=== PATIENT | male | born 1960 | race African-American/Black ===

== ENCOUNTER 2020-12-06 08:14 | Outpatient (REF) | payer OTHER, SELFPAY ==
--- NOTE | ~2020-12-06 | XR_ITS ---
EXAMINATION: XR WRIST, LEFT CLINICAL INFORMATION: Left wrist pain COMPARISON: None TECHNIQUE: PA, lateral, and oblique views of the left wrist. FINDINGS: There is soft tissue swelling seen about the dorsum of the wrist. There is severe degenerative joint disease seen involving the first carpometacarpal joint with loss of joint space and prominent spurring. No acute fracture is appreciated. XR/XR wrist LT min 3V IMPRESSION: Severe degenerative joint disease involving the first carpal metacarpal joint.
== END 2020-12-06 08:15 | disposition home or self-care (01) ==
LOC: HO.HOSX 08:14
PROVIDERS: Visit Provider Orthopaedic Surgery
DX: M67.432 Ganglion, left wrist (principal); M25.631 Stiffness of right wrist, not elsewhere classified; M25.632 Stiffness of left wrist, not elsewhere classified
CPT/HCPCS: 20612; 73110; 99202

== ENCOUNTER → 2021-03-06 09:05 | Outpatient (BNVA) | payer OTHER, SELFPAY | PROVIDERS: Visit Provider Orthopaedic Surgery | DX: M67.439 Ganglion, unspecified wrist (principal); M25.631 Stiffness of right wrist, not elsewhere classified; M25.632 Stiffness of left wrist, not elsewhere classified | CPT/HCPCS: 99212 ==

== ENCOUNTER 2021-03-22 08:06 | Day surgery (SDC) | payer OTHER, SELFPAY ==
[2021-03-16 12:10] VITALS: BMI 28.6
--- NOTE | 2021-03-21 10:11 | HO.ANESPROP2 ---
Documented by User: Tari Bhandari NP 03/21/21 10:11 HPI - Anesthesia Eval Consult details Narrative: 60yo M for Left Excision of Dorsal Wrist Ganglion PMFSH Active Problems Active Problems: All Active Problems (Updated 12/06/20 @ 09:38 by Janell Davis MD) Wrist joint stiffness, bilateral (Acute) Dorsal wrist ganglion (Acute) Past Medical History Medical History High blood pressure High cholesterol Surgical History Surgical History (Updated 03/22/21 @ 08:15 by Dolores Mcmullen RN) History of carpal tunnel release Hx of hand surgery Social History Social History Patient Tobacco Use Status: Never used Tobacco Use of substances other than those prescribed or required for medical reasons: No Are you DNR?: No Advance Directives: No Advance Directives Information Provided: Yes Current occupational status: unemployed 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 Allergies Allergy/AdvReac Type Severity Reaction Status Date / Time ibuprofen [From MOTRIN] Allergy Unknown RASH Verified 03/06/21 09:23 Home Medications Medication Instructions Recorded Confirmed Last Taken Type amlodipine 2.5 mg tablet 2.5 mg PO DAILY 12/06/20 Unknown History atorvastatin 10 mg tablet 10 mg PO DAILY 12/06/20 Unknown History Exam Exam Date and Time: March 21, 2021 1011 Height,Weight and Vital Signs: Height 5 ft 4 in Weight 75.75 kg Assessment and Plan Assessment Anesthesia Assessment: Chart Reviewed Documented by User: Yessenia Hodges MD 03/22/21 10:19 PMFSH Active Problems Active Problems: All Active Problems (Updated 12/06/20 @ 09:38 by Janell Davis MD) Wrist joint stiffness, bilateral (Acute) Dorsal wrist ganglion (Acute) Off cholesterol meds. States cholesterol ok now Past Medical History Medical History High blood pressure High cholesterol Family History Family history of problems with anesthesia: No Surgical History Surgical History (Updated 03/22/21 @ 08:15 by Dolores Mcmullen RN) History of carpal tunnel release Hx of hand surgery History of Problems with Anesthesia: No Social History Social History Patient Tobacco Use Status: Never used Tobacco Use of substances other than those prescribed or required for medical reasons: No Are you DNR?: No Advance Directives: No Advance Directives Information Provided: Yes Current occupational status: unemployed 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 Allergies Allergy/AdvReac Type Severity Reaction Status Date / Time ibuprofen [From MOTRIN] Allergy Unknown RASH Verified 03/06/21 09:23 Home Medications Medication Instructions Recorded Confirmed Last Taken Type amlodipine 2.5 mg tablet 2.5 mg PO DAILY 12/06/20 Unknown History atorvastatin 10 mg tablet 10 mg PO DAILY 12/06/20 Unknown History Exam Height,Weight and Vital Signs: Height 5 ft 4 in Weight 75.75 kg Vital Signs Temp Pulse Resp BP Pulse Ox 03/22/21 08:36 97.7 F 61 16 139/86 99 Airway Mallampati Class: II TM Dist: >3cm Neck ROM: Full Loose/Missing/Broken Teeth: No Heart: RRR Lungs: CTAB Assessment and Plan Assessment Anesthesia Assessment: Anesthesia Plan Discussed Final Anesthetic Review Family History of Problems with Anesthesia: No History of Problems with Anesthesia: No NPO: Yes ASA Class: II Final Preanesthetic Review: No Changes in Pt Med Stat, Meds/Allgs Chart Reviewed, Consent Obtained/Reviewed and Anes Risks/Benef Reviewed Patient Risk: Low Procedure Risk: Low Assessment/Block/Sedation in SS: Assess/Block/Sedation-SS Anesthetic Plan Anesthetic Plan: GA Disposition: Standard PACU
[2021-03-22] VITALS (8 sets, daily range): BP systolic 97–139; BP diastolic 61–86; PULSE 61–85; RESP 16–18; TEMP 36.4–36.5; O2SAT 96–99
[2021-03-22] MEDS: Lactated Ringers 1,000 ML 100 ML IVCONT (08:49)
--- NOTE | 2021-03-22 11:39 | P.OP_ITS ---
Operative Note Operative Note Date of Service: 03/22/21 Narrative: Operative Note Narrative: Preop diagnosis: 1. Left dorsal wrist ganglion Postop diagnosis: 1. Left dorsal wrist ganglion 2. Left hand/wrist extensor tenosynovitis involving the tendons of the 4th and 5th dorsal compartments Procedure: 1. Left dorsal wrist ganglion excisional biopsy 2. Left is 4th and 5th dorsal compartment tenosynovectomies Surgeon: Janell Davis MD Anesthesia: General Findings: Left dorsal wrist ganglion approximately 2.5 cm diameter, filled with clear yellow watery fluid. Abundant tenosynovium and fell opening the extensor tendons of the 4th and 5th dorsal compartments. There was some invasion in the extensor tendons to the middle and ring fingers. Tourniquet time: 22 minutes EBL: 5.0 ml Specimen: Left dorsal wrist ganglion and extensor tenosynovium for cultures and histopathology Drains: None Complications: None Disposition: Brought to the recovery room in stable condition Plan: Follow-up in 10-14 days for wound check, suture removal and to check cul tures and pathology. Consider having patient talk to primary care provider about workup for possible inflammatory arthritis. Indications: The patient is a 60 year old man with a left dorsal wrist ganglion that has been unresponsive to nonoperative management. The risks and benefits of operative treatment, including but not limited to risk of damage to blood vessels, nerves, tendons, infection, recurrence, persistent pain or numbness, or need for further surgery were discussed with the patient and they wished to proceed with surgery. Procedure: Once consent was obtained patient was brought back to the operating suite and placed in the operating table in a supine position. Perioperative antibiotics and anesthesia was administered by the anesthesia team. A tourniquet was applied to the proximal aspect of the left upper extremity and the limb was prepped and draped in a standard surgical fashion. The limb was elevated exsanguinated with Esmarch bandage and the tourniquet inflated to 250 mm of mercury for a total tourniquet time of 22 minutes. A 3 cm longitudinal incision was made over the dorsal aspect of the left hand and wrist, centered over the dorsal wrist ganglion. The ganglion was located centrally over the carpus and was rather large, measuring approximately 2.5 cm in diameter. The incision was made with a #15 blade through the skin to the subcutaneous tissues. Tenotomy scissors were then used to carefully dissect down through the subcutaneous layer to the dorsal wrist ganglion. It measured approximately 2.5 cm in diameter and was filled with clear yellow watery fluid. Cultures were taken of this fluid. There was also abundant tenosynovium about the extensor tendons of the 4th and 5th dorsal compartments. There was some invasion into the extensor tendons to the left middle and ring fingers with bulbous enlargement. I then proceeded with a tenosynovectomy excising this abundant tenosynovium from about the tendons, removing it and placing it on the back table for histopathologic review, and also a specimen was sent for cultures including AFB and fungus. An 8 mm longitudinal incision was made in the distal aspect of the extensor retinaculum to facilitate removal of the inflammatory tenosynovium from about the tendons in this area. It did not appear to extend deeper within the retinaculum and there was no fullness or swelling appreciated proximal to the extensor retinaculum. At this point the tourniquet was deflated and hemostasis obtained with a brief period of local pressure and bipolar electrocautery. TheWound was irrigated with normal saline. The skin edges were reapproximated with some 5-0 nylon suture. The wound was infiltrated with some 1% lidocaine with epinephrine for postop pain control and a sterile dressing was applied. The patient appears to have tolerated the procedure well and with no complications. All digits were well vascularized conclusion of the case.
--- NOTE | 2021-03-22 11:39 | MHC.SHP ---
Pre-Procedural Eval Section A Date of Service: 03/22/21 The patient is an INPATIENT: No Changes since office visit: No Cold of Flu in the past 2 weeks, No New Medical Problems, No Changes in Medication and No Patient answered all questions The History & Physical has been completed within 30 days and I have reviewed it.: Yes Section B Chief Complaint: ganglion Allergies: Allergies Allergy/AdvReac Type Severity Reaction Status Date / Time ibuprofen [From MOTRIN] Allergy Unknown RASH Verified 03/06/21 09:23 latex Allergy Rash Verified 03/22/21 11:15 Plan I have reviewed the history and physical and performed a pertinent physical examination on my patient. No changes have occurred unless specified.
== END 2021-03-22 15:07 | disposition home or self-care (01) ==
PROVIDERS: PCP Nurse Practitioner; Visit Provider Orthopaedic Surgery
PROC: (CPT 25118; principal; 2021-03-22 09:40)
DX: M67.432 Ganglion, left wrist (principal); M65.132 Other infective (teno)synovitis, left wrist; M25.632 Stiffness of left wrist, not elsewhere classified; I10 Essential (primary) hypertension; Z79.899 Other long term (current) drug therapy; Z88.8 Allergy status to other drugs, medicaments and biological substances; Z91.040 Latex allergy status
CPT/HCPCS: 25118 ×2; 25111; 87071; 87073; 87101; 87102; 87116; 87205; 88304; J0690; J1100; J2250; J2405; J3010

== ENCOUNTER → 2021-04-03 13:54 | Outpatient (BNVA) | payer OTHER, SELFPAY | PROVIDERS: PCP Nurse Practitioner; Visit Provider Orthopaedic Surgery | DX: M67.432 Ganglion, left wrist (principal); M65.832 Other synovitis and tenosynovitis, left forearm; R20.0 Anesthesia of skin; R20.2 Paresthesia of skin; I10 Essential (primary) hypertension; E78.00 Pure hypercholesterolemia, unspecified; Z88.8 Allergy status to other drugs, medicaments and biological substances; Z91.040 Latex allergy status; Z48.02 Encounter for removal of sutures | CPT/HCPCS: 99212 ==

== ENCOUNTER 2021-05-17 11:21 | Outpatient (REF) | payer OTHER, SELFPAY ==
[2021-05-17 12:04] LABS: MANUAL DIFF FLAG NO
[2021-05-17 13:06] LABS: Basophils Percent Auto 0.6 % (0-2); Eosinophils Absolute Auto 0.2 X10*3/uL (0.0-0.4); Eosinophils Percent Auto 3.9 % (0-4); Hematocrit 37.5 % (42.0-52.0); Hemoglobin 12.1 g/dl (14.0-18.0); Imm Gran Abs Auto 0.01 X10*3/uL (0.00-0.03); Imm Gran Pct Auto 0.2 % (0.0-0.4); Lymphocytes Absolute Auto 1.5 X10*3/uL (1.2-4.9); Lymphocytes Percent Auto 30.4 % (20-40); Mean Corpuscular HGB Conc 32.3 g/dl (31.0-36.0); Mean Corpuscular Hemoglobin 30.9 pg (27.0-33.0); Mean Corpuscular Volume 95.7 fL (80.0-98.0); Monocytes Absolute Auto 0.6 X10*3/uL (0.1-1.2); Monocytes Percent Auto 11.4 % (2-11); Neutrophils Absolute Auto 2.7 x10*3/uL (2.0-8.3); Neutrophils Percent Auto 53.5 % (45-73); Platelet Count 211 X10*3/uL (160-400); Red Blood Count 3.92 X10*6/uL (4.60-5.80); Red Cell Distribution Width 12.6 % (11.0-16.0); White Blood Count 5.1 X10*3/uL (4.8-10.8)
[2021-05-17 13:28] LABS: Alanine Aminotransferase 35 U/L (0-40); Albumin Level 4.3 g/dL (3.5-5.0); Alkaline Phosphatase 86 U/L (39-117); Anion Gap 9 (12-20); Aspartate Amino Transferase 35 U/L (5-37); Bilirubin Total 0.4 mg/dL (0.0-1.0); Blood Urea Nitrogen 18 mg/dL (9-16); Calcium 11.1 mg/dL (8.4-10.2); Carbon Dioxide 29 mmol/L (22-29); Chloride 105 mmol/L (96-108); Estimated Glomerular Filt Rate 56; Glucose Random 115 mg/dL (60-115); Potassium 4.2 mmol/L (3.3-5.1); Sodium 139 mmol/L (135-145)
== END 2021-05-17 11:22 | disposition home or self-care (01) ==
LOC: HO.LAB 11:21
PROVIDERS: PCP Nurse Practitioner; Referring Provider Nurse Practitioner; Visit Provider Nurse Practitioner
DX: Z12.11 Encounter for screening for malignant neoplasm of colon (principal)
CPT/HCPCS: 36415; 80053; 85025; 99202

== ENCOUNTER 2021-05-24 10:05 | Outpatient (REF) | payer OTHER, SELFPAY ==
--- NOTE | 2021-05-24 10:08 | EMG_ITS ---
Right median and ulnar motor and sensory studies were performed. Right radial sensory study was performed. Median and lateral antecubital sensory studies were performed and paraspinal muscles were tested. IMPRESSION: 1. Moderately severe right median neuropathy across carpal tunnel. 2. Mild right ulnar neuropathy across cubital tunnel. MD VINCENT Serra/POWER / [id number]
== END 2021-05-24 10:06 | disposition home or self-care (01) ==
LOC: HO.NEURO 10:05
PROVIDERS: PCP Nurse Practitioner; Visit Provider Orthopaedic Surgery
DX: R20.0 Anesthesia of skin (principal); R20.2 Paresthesia of skin
CPT/HCPCS: 95886; 95910

== ENCOUNTER 2021-08-16 08:18 | Outpatient (REF) | payer OTHER, SELFPAY | END 2021-08-16 08:19 | disposition home or self-care (01) | LOC: HO.HOSX 08:18 | PROVIDERS: Visit Provider Physician Assistant | DX: Z13.89 Encounter for screening for other disorder (principal) ==

== ENCOUNTER 2021-08-17 09:10 | Outpatient (REF) | payer OTHER, SELFPAY ==
--- NOTE | ~2021-08-17 | XR_ITS ---
EXAMINATION: XR SHOULDER, RIGHT CLINICAL INFORMATION: Right shoulder pain. COMPARISON: None TECHNIQUE: Three views of the right shoulder. FINDINGS: The bony alignments are intact. The cortices are intact. Evidence of os acromiale is present with mild osteoarthrosis of the acromioclavicular joint. The soft tissues are unremarkable. The superolateral part of the humeral head shows slight focal area of sclerosis and cortical indentation, may represent old posttraumatic change. XR/XR shoulder RT min 2V IMPRESSION: 1. 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 2. Slight focal area of sclerosis and cortical indentation at the superolateral part of the humeral head, may represent old posttraumatic change.
== END 2021-08-17 09:11 | disposition home or self-care (01) ==
LOC: HO.HOSX 09:10
PROVIDERS: Visit Provider Physician Assistant
DX: G56.01 Carpal tunnel syndrome, right upper limb (principal); G56.21 Lesion of ulnar nerve, right upper limb
CPT/HCPCS: 73030; 99202

== ENCOUNTER → 2021-09-12 12:12 | Outpatient (BNVA) | payer OTHER, SELFPAY | PROVIDERS: PCP Nurse Practitioner; Visit Provider Orthopaedic Surgery | DX: G56.21 Lesion of ulnar nerve, right upper limb (principal); G56.01 Carpal tunnel syndrome, right upper limb | CPT/HCPCS: 99212 ==

== ENCOUNTER 2021-10-04 08:15 | Day surgery (SDC) | payer OTHER, SELFPAY ==
[2021-10-04 08:50] VITALS: BP 137/71; PULSE 75; RESP 18; TEMP 36.4; O2SAT 98; BMI 30.2
[2021-10-04 10:53] VITALS: BP 125/73; PULSE 85; RESP 18; TEMP 36.3; O2SAT 98
--- NOTE | 2021-10-04 11:29 | MHC.SHP ---
Pre-Procedural Eval Section A Date of Service: 10/04/21 The patient is an INPATIENT: No Changes since office visit: No Cold of Flu in the past 2 weeks, No New Medical Problems, No Changes in Medication and No Patient answered all questions The History & Physical has been completed within 30 days and I have reviewed it.: Yes Section B Chief Complaint: Carpal tunnel Allergies: Allergies Allergy/AdvReac Type Severity Reaction Status Date / Time ibuprofen [From MOTRIN] Allergy Unknown RASH Verified 09/12/21 12:40 latex Allergy Rash Verified 09/12/21 12:40 Plan I have reviewed the history and physical and performed a pertinent physical examination on my patient. No changes have occurred unless specified.
--- NOTE | 2021-10-04 11:30 | W.PM.OPN ---
Operative Note Operative Note Date of Service: 10/04/21 Narrative: Preop diagnosis: 1. right Carpal tunnel syndrome Postop diagnosis: same Procedure: 1. right Carpal tunnel release Surgeon: Janell Davis MD Anesthesia: local block using 1% lidocaine with epinephrine Findings: Thickened transverse carpal ligament. EBL: Less than 5 mL Specimens: None Complications: None Disposition: Brought to recovery room in stable condition Plan: Follow-up for 10-14 days for wound check and suture removal Indications: The patient is 61 years old, with right carpal tunnel syndrome that has been unresponsive to nonoperative management. The risks and benefits of operative treatment including but not limited to risk of damage to blood vessels, nerves, tendons, infection, persistent pain, persistent symptoms, or possible need for additional surgery were discussed with the patient and the patient wishes to proceed with surgery. Procedure: Once consent was obtained a local block was performed using a combination of 1% lidocaine with epinephrine. The patient was then brought back to the operating suite and placed on the operative table in supine position. A tourniquet was applied to the proximal aspect of the right upper extremity and the limb was prepped and draped in a standard surgical fashion. Once assured that we had a good block, a 1.5 cm longitudinal incision was made centered over the carpal tunnel. The incision was made through the skin to the subcutaneous tissues using a #15 blade. Dissection was made down to the level of the transverse carpal ligament with care being taken to protect the palmar cutaneous nerve. Once the transverse carpal ligament was clearly visualized, a longitudinal incision was made in the transverse carpal ligament 1st using a #15 blade, then using tenotomy scissors under direct visualization. Care was taken to look for and protect the motor branch of the median nerve when seen in this area. Once satisfied with our carpal tunnel release the wound was copiously irrigated with normal saline and hemostasis was obtained with a brief period of local pressure. The skin edges were reapproximated with some 5.0 nylon suture material and a sterile dressing was applied. The patient appears to have tolerated the procedure well and with no complications. All digits were well vascularized at the conclusion of the case.
== END 2021-10-04 11:12 | disposition home or self-care (01) ==
PROVIDERS: PCP Nurse Practitioner; Visit Provider Orthopaedic Surgery
PROC: (CPT 64721; principal; 2021-10-04 09:40)
DX: G56.01 Carpal tunnel syndrome, right upper limb (principal); R20.0 Anesthesia of skin; M06.9 Rheumatoid arthritis, unspecified; I10 Essential (primary) hypertension; E78.00 Pure hypercholesterolemia, unspecified; Z79.899 Other long term (current) drug therapy; Z88.8 Allergy status to other drugs, medicaments and biological substances; Z91.040 Latex allergy status; Z98.890 Other specified postprocedural states
CPT/HCPCS: 64721; J0171

== ENCOUNTER 2022-05-02 06:29 | Day surgery (SDC) | payer OTHER, SELFPAY ==
[2022-04-25 15:05] VITALS: BMI 29.0
--- NOTE | 2022-05-02 06:20 | P.HPSUR_ITS ---
Pre-Procedural Eval Section A Date of Service: 05/02/22 Section B Chief Complaint: screening Relevant Family History (Specify if Yes): No Relevant Social History: None Present Medications: see Short Stay Collaborative assessment Medical History: Significant History (High blood pressure High cholesterol) History of Previous Operations: Relevant previous surgery/procedure and date(s) (hand surgery,colonoscoipy) Allergies: Allergies Allergy/AdvReac Type Severity Reaction Status Date / Time ibuprofen [From MOTRIN] Allergy Intermediate RASH Verified 04/25/22 14:49 latex Allergy Intermediate Rash Verified 04/25/22 14:49 Review of Systems Sugical H&P ROS: Negative: Constitution, Cardiovascular, Respiratory, Neurological, Psychiatric, Hem-Onc, Allergic/Immunologic, Gastrointestinal, Genitourinary, Musculoskeletal, Integumentary, Endocrine and Eyes/Ears/No se/Throat Exam Surgical H&P Exam: Normal: HEENT, Normal: Heart, Normal: Lungs, Normal: Extremities, Normal: Abdomen, Normal: Skin and Normal: Neurological Plan Diagnosis/Plan: Unchanged I have reviewed the history and physical and performed a pertinent physical examination on my patient. No changes have occurred unless specified. Time Spent With Patient Time: Total time managing care of this patient today ____ minutes.
[2022-05-02 06:44] VITALS: BP 150/68; PULSE 65; RESP 16; TEMP 36.4; O2SAT 98
[2022-05-02] MEDS: Lactated Ringers 1,000 ML 50 ML IVCONT (07:14)
--- NOTE | 2022-05-02 07:17 | P.CONAN_ITS ---
[facility] Active Problems Active Problems: All Active Problems (Updated 04/25/22 @ 15:05 by Nandini Quinn RN) Dorsal wrist ganglion (Acute) Wrist joint stiffness, bilateral (Acute) Extensor tenosynovitis of left wrist (Acute) Colon cancer screening (Acute) Carpal tunnel syndrome, right (Acute) Cubital tunnel syndrome on right (Acute) Past Medical History Medical History (Updated 04/25/22 @ 15:05 by Nandini Quinn RN) Arthritis High blood pressure High cholesterol Family History Family history of problems with anesthesia: No Surgical History Surgical History (Updated 04/25/22 @ 14:50 by Nandini Quinn RN) H/O colonoscopy History of ankle surgery History of carpal tunnel release Hx of hand surgery History of Problems with Anesthesia: No Social History Social History (Updated 08/17/21 @ 09:43 by Meenakshi Mccrary CMA) Patient Tobacco Use Status: Never used Tobacco Use of substances other than those prescribed or required for medical reasons: No Have you been hit, kicked, punched, or otherwise hurt by someone within the past year? 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 Allergies Allergy/AdvReac Type Severity Reaction Status Date / Time ibuprofen [From MOTRIN] Allergy Intermediate RASH Verified 05/02/22 06:36 latex Allergy Intermediate Rash Verified 05/02/22 06:36 Active Medications: Current Medications Lactated Ringer's (Lr) 1,000 mls @ 50 mls/hr IVCONT .Q20H KISHOR Last Admin: 05/02/22 07:14 Dose: 50 mls/hr Home Medications Medication Instructions Recorded Confirmed Last Taken Type amlodipine 2.5 mg tablet 2.5 mg PO DAILY 12/06/20 05/02/22 05/02/22 05:45 History atorvastatin 10 mg tablet 10 mg PO DAILY 12/06/20 05/02/22 10/04/21 History losartan 100 1 tab PO QAM 05/02/22 05/02/22 05/01/22 History mg-hydrochlorothiazide 12.5 mg tablet Exam Exam Date and Time: May 02, 2022 0717 Height,Weight and Vital Signs: Height 5 ft 6 in Weight 81.647 kg Last Vital Signs Temp 97.6 F 05/02/22 06:44 Pulse 65 05/02/22 06:44 Resp 16 05/02/22 06:44 BP 150/68 H 05/02/22 06:44 Pulse Ox 98 05/02/22 06:44 O2 Del Method 05/02/22 06:44 Airway Mallampati Class: III TM Dist: >3cm Neck ROM: Full Assessment and Plan Assessment Anesthesia Assessment: Anesthesia Plan Discussed and Chart Reviewed Final Anesthetic Review Family History of Problems with Anesthesia: No History of Problems with Anesthesia: No NPO: Yes ASA Class: II Final Preanesthetic Review: No Changes in Pt Med Stat, Meds/Allgs Chart Reviewed, Consent Obtained/Reviewed and Anes Risks/Benef Reviewed Patient Risk: Low Procedure Risk: Low Anesthetic Plan Anesthetic Plan: MAC: Disposition: Standard PACU
--- NOTE | 2022-05-02 07:22 | PC.NURSE ---
Patient in preop. SR with occasional inverted P waves on monitor. Dr. Miguel made aware.
--- NOTE | 2022-05-02 07:45 | PC.NURSE ---
Patient stated he ate a corn beef sandwich at 0830 on 05/01. Dr. Palma made aware.
--- NOTE | 2022-05-02 07:53 | P.OP_ITS ---
Operative Note Operative Note Date of Service: 05/02/22 Narrative: Operative Information Procedure Description: Colonoscopy Indication: screening Anesthesia: MAC COLONOSCOPY Instrument: Olympus variable stiffness pediatric scope 190L Colonoscopy Monitoring: Vital signs and clinical assessment, continuous EKG monitoring, Pulse oximetry, Carbon Dioxide monitoring and blood pressure monitoring were done throughout the procedure. Colon withdrawal time was 7 minutes. Procedure: The patient was placed in the left lateral decubitis position and pre-procedure medications were administered. After a digital rectal examination of the ano-rectum, the video colonoscope was inserted into the rectum and advanced through the colon to the cecum/TI. The colonoscope was slowly withdrawn in a retrograde panoramic fashion and the colon mucosa was carefully examined including a retroflexed view of the rectum. Findings and interventions are described below. Procedure Difficulty: easy Findings: Terminal Ileum-normal Cecum:normal Ascending Colon: normal Transverse Colon -normal Descending Colon:normal Sigmoid Colon: normal Rectum: Retroflexion with small internal hemorrhoids, grade I with skin tag noted Anorectum - normal Colon preparation: [place] Bowel Preparation Scale Right colon; 3 Transverse colon: 3 Left colon; 3 (0 = Unprepared colon segment with mucosa not seen due to solid stool that cannot be cleared. 1 = Portion of mucosa of the colon segment seen, but other areas of the colon segment not well seen due to staining, residual stool and/or opaque liquid. 2 = Minor amount of residual staining, small fragments of stool and/or opaque liquid, but mucosa of colon segment seen well. 3 = Entire mucosa of colon segment seen well with no residual staining, small fragments of stool or opaque liquid) Impression and Post Procedure Diagnosis: internal hemorrhoid, skin tag Plan: High fiber diet leaflet Avoid straining at stool, epsom salts and sitz bath, anusol supps or cream Repeat Colonoscopy in 10 years or earlier if clinically indicated Above findings were reviewed with the patient and relevant handouts were provided if indicated.
[2022-05-02 08:13] VITALS: BP 90/37; PULSE 59; RESP 16; TEMP 36.1; O2SAT 100
[2022-05-02 08:28] VITALS: BP 98/51; PULSE 67; RESP 16; TEMP 36.1; O2SAT 100
[2022-05-02 08:43] VITALS: BP 118/63; PULSE 55; RESP 16; TEMP 36.1; O2SAT 99
[2022-05-02 08:58] VITALS: BP 144/66; PULSE 64; RESP 18; TEMP 36.6; O2SAT 98
== END 2022-05-02 09:31 | disposition home or self-care (01) ==
PROVIDERS: PCP Nurse Practitioner; Visit Provider Internal Medicine Gastroenterology
PROC: 0DJD8ZZ Inspection of Lower Intestinal Tract, Via Natural or Artificial Opening Endoscopic (ICD-10-PCS; CPT 45378; principal; 2022-05-02 07:30)
DX: Z12.11 Encounter for screening for malignant neoplasm of colon (principal); K64.0 First degree hemorrhoids; K64.4 Residual hemorrhoidal skin tags; I10 Essential (primary) hypertension; D64.9 Anemia, unspecified; E78.00 Pure hypercholesterolemia, unspecified; Z79.899 Other long term (current) drug therapy; Z91.040 Latex allergy status; Z88.8 Allergy status to other drugs, medicaments and biological substances
CPT/HCPCS: 45378

== ENCOUNTER 2023-07-14 10:48 | Outpatient (REF) | payer OTHER, SELFPAY ==
[2023-07-14 13:08] LABS: MANUAL DIFF FLAG NO
[2023-07-14 13:25] LABS: Basophils Percent Auto 0.6 % (0-2); Eosinophils Absolute Auto 0.2 X10*3/uL (0.0-0.4); Eosinophils Percent Auto 3.1 % (0-4); Hematocrit 36.7 % (42.0-52.0); Imm Gran Abs Auto 0.02 X10*3/uL (0.00-0.03); Imm Gran Pct Auto 0.4 % (0.0-0.4); Lymphocytes Absolute Auto 1.5 X10*3/uL (1.2-4.9); Lymphocytes Percent Auto 29.5 % (20-40); Mean Corpuscular HGB Conc 32.7 g/dl (31.0-36.0); Mean Corpuscular Hemoglobin 30.5 pg (27.0-33.0); Mean Corpuscular Volume 93.1 fL (80.0-98.0); Mean Platelet Volume 10.4 fL (9.4-12.4); Monocytes Absolute Auto 0.5 X10*3/uL (0.1-1.2); Monocytes Percent Auto 9.3 % (2-11); Neutrophils Percent Auto 57.1 % (45-73); Platelet Count 284 X10*3/uL (160-400); Red Blood Count 3.94 X10*6/uL (4.60-5.80); Red Cell Distribution Width 12.8 % (11.0-16.0); White Blood Count 5.2 X10*3/uL (4.8-10.8)
[2023-07-14 13:36] LABS: Alanine Aminotransferase 28 U/L (0-40); Albumin Level 4.3 g/dL (3.5-5.0); Alkaline Phosphatase 84 U/L (39-117); Anion Gap 10 (12-20); Aspartate Amino Transferase 30 U/L (5-37); Bilirubin Total 0.4 mg/dL (0.0-1.0); Blood Urea Nitrogen 21 mg/dL (9-16); Calcium 10.7 mg/dL (8.4-10.2); Carbon Dioxide 27 mmol/L (22-29); Chloride 108 mmol/L (96-108); Cholesterol 137 mg/dL (<200); Estimated Glomerular Filt Rate > 60; Glucose Random 116 mg/dL (60-115); HDL Cholesterol 43 mg/dL (>40); LDL Cholesterol Calculated 74 mg/dL (<100); Potassium 3.7 mmol/L (3.3-5.1); Sodium 141 mmol/L (135-145); Total Protein 7.8 g/dL (6.5-8.0); Triglycerides 100 mg/dL (<150)
[2023-07-14 13:46] LABS: PSA,Total (Free>4and<10) 2.67 ng/mL (0.00-4.00)
== END 2023-07-14 10:49 | disposition home or self-care (01) ==
LOC: HO.HHCL 10:48
PROVIDERS: Visit Provider Internal Medicine
DX: R30.0 Dysuria (principal); I10 Essential (primary) hypertension; M25.541 Pain in joints of right hand; M25.542 Pain in joints of left hand; E78.2 Mixed hyperlipidemia
CPT/HCPCS: 36415; 80053; 80061; 84153; 84443; 85025

== ENCOUNTER 2023-10-07 10:52 | Outpatient (AMB) | payer OTHER, SELFPAY ==
--- NOTE | 2023-10-07 11:10 | MHC.OFFVIS ---
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 Tee. She has a past medical history of hypertension, arthritis, and hypercholesteremia. He presents to the office today as a new patient for a family history of prostate cancer. In discussion with the patient today he reports a longstanding history of paternal prostate cancer. He reports his father and multiple uncles as well as grandfather and great grandfather all had prostate cancer and would like to establish care. In review of patient's chart it appears PSA was ordered and performed 07/26 2.7. He reports having followed up with his PCP at which time recommendations were made for urology referral for further assessment evaluation. He also reports having had a retroperitoneal ultrasound at [facility] for ongoing bilateral hip pain and bladder pressure he experiences from time to time. In office urinalysis results reviewed with the patient today. He reports noting bladder pressure worsens when attempting to hold his urination. Discussed healthy bathroom behaviors. He otherwise denies urinary urgency, urinary frequency, incontinence, nocturia, hematuria, dysuria, foul smelling urine, changes to urinary stream, flank pain, fever, and or chills. He is happy with his current voiding parameters. Discussed surveillance monitoring of PSA given family history of prostate cancer. He reports having had AMY with PCP that was normal. He otherwise offers no other issues or concerns at this time. 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 - [employer] Review of Systems Const All systems reviewed & are unremarkable except as noted in HPI and below Physical Exam Const General: cooperative, healthy appearing, comfortable, no acute distress, well developed, alert and awake Orientation/consciousness: patient oriented x3 Limitations: no limitations HEENT Head: Yes normal to inspection, Yes normocephalic and Yes atraumatic Ears: hearing grossly normal bilaterally Eyes General: appearance normal, both eyes and all related structures Neck Neck: Yes normal visual inspection and Yes trachea midline Chest Chest palpation & inspection: normal inspection of the chest Resp Effort & Inspection: normal respiratory effort and able to speak in complete sentences Cardio Rate: regular rate GI Inspection: Yes normal to inspection General: Yes no CVA tenderness Back/Spine/Pelvis Back: no CVA tenderness Skin General skin exam: no rashes or lesions noted Neuro General: patient oriented x3 Extrem General: Yes normal to inspection Psych Appearance: grossly normal and well kempt Mental Status: mental status grossly normal Speech and movement: Normal speech and movement present and Clear speech present Affect: normal affect Attitude: cooperative Thought process: Normal thought process present Thought content: Normal thought content present Insight: Fair insight present (Psych) Judgement: Fair judgement present (Psych) Results AMB Urinalysis, Automated UA Leukoctes 0 Angelina/uL Last Edit by [employer] Betty on 10/07/23 11:22 UA Nitrite Negative Last Edit by [employer] Hernández on 10/07/23 11:22 UA Urobilinogen 0.2 mg/dL Last Edit by [employer] on 10/07/23 11:22 UA Protein 0 mg/dL Last Edit by [employer]judy Hernández on 10/07/23 11:22 UA pH 7.5 Last Edit by [employer]judy Hernández on 10/07/23 11:22 UA Blood 0 Ebenezer/uL Last Edit by [employer] Betty on 10/07/23 11:22 UA Specific [place] 1.010 Last Edit by [employer] Betty on 10/07/23 11:22 UA Ketone Negative Last Edit by [employer] on 10/07/23 11:22 UA Bilirubin 0 mg/dL Last Edit by Elmoisiahjudy Hernández on 10/07/23 11:22 UA Glucose 0 mg/dL Last Edit by Adilene Hernández on 10/07/23 11:22 Results Reviewed Results Reviewed: Laboratory Last Values Urine pH (Auto) 7.5 10/07/23 11:21 Specific [place] (Auto) 1.010 10/07/23 11:21 Urine Protein (Auto) 0 mg/dL 10/07/23 11:21 Glucose (UA)(Auto) 0 mg/dL 10/07/23 11:21 Urine Ketones (Auto) Negative 10/07/23 11:21 Urine Blood (Auto) 0 Ebenezer/uL 10/07/23 11:21 Urine Nitrite (Auto) Negative 10/07/23 11:21 Urine Bilirubin (Auto) 0 mg/dL 10/07/23 11:21 Urine Urobilinogen (Auto) 0.2 mg/dL 10/07/23 11:21 Leukocyte Esterase (Auto) 0 Angelina/uL 10/07/23 11:21 Assessment & Plan Assessment & Plan (1) Family history of prostate cancer: Code(s): Z80.42 - Family history of malignant neoplasm of prostate Category: Medical Plan In office urinalysis results reviewed with the patient today; as noted above. Recent PSA results reviewed with the patient today; as noted above. Discussed healthy bladder habits. Discussed bladder triggers/irritants. Patient currently denies any bothersome urinary issues or concerns. Will attempt to obtain ultrasound through [facility] for continuity of care. Will continue with surveillance monitoring of PSA. Will obtain PSA in 6 months Follow-up in 6 months with lab to be completed prior; or sooner with any issues, concerns, and or questions. Orders: Orders Prostate Specific Antigen 6 Months Z80.42 - Family history of malignant neoplasm of prostate AMB Urinalysis Automated Today Z13.9 - Encounter for screening, unspecified Patient Instructions: The patient had an opportunity to ask questions regarding the treatment plan. All questions were answered. Physical exam, labs, and imaging were discussed and reviewed in detail. As well as risks, benefits, and discussion of treatment choices. No major barriers to understanding were identified. The patient expressed understanding and agreement with the above treatment plan. The patient was made aware they should contact our office by phone for worsening of their current condition, the appearance of new symptoms, or with any questions or concerns. Compliance is encouraged with any medications and follow up testing that is ordered. It is a privilege to be allowed the opportunity to participate in? your urological care.? Again, if you have any questions or concerns If you have any questions or concerns please do not hesitate to contact me. The office is [phone]. This note is constructed using voice recognition software. While every effort has been made to ensure accuracy geological technical officer errors may have been included. Yours sincerely, JULIEN Warren Coding Level of Care Code New Pt Level 3 (82854) Diagnoses Family history of prostate cancer Z80.42
== END 2023-10-07 11:36 | disposition home or self-care (01) ==
PROVIDERS: PCP Nurse Practitioner Family; Visit Provider Nurse Practitioner Family
DX: Z80.42 Family history of malignant neoplasm of prostate (principal); Z13.9 Encounter for screening, unspecified
CPT/HCPCS: 99203

== ENCOUNTER → 2023-10-07 10:52 | Outpatient (BNVA) | payer OTHER, SELFPAY | PROVIDERS: PCP Nurse Practitioner Family; Visit Provider Nurse Practitioner Family | DX: R39.89 Other symptoms and signs involving the genitourinary system (principal); Z80.42 Family history of malignant neoplasm of prostate | CPT/HCPCS: 81003 ==

== ENCOUNTER 2023-10-21 15:17 | Outpatient (AMB) | payer OTHER, SELFPAY ==
--- NOTE | 2023-10-21 15:19 | A.OFFVIS_ITS ---
Vital Signs 10/21/23 15:20 Height 5 ft 5 in Weight 182 lb 15.739 oz BMI 30.4 BP 146/82 H Blood Pressure Location Rt brachial Position Sitting Pulse 86 Pulse Source Pulse Oximeter Pulse Oximetry (%) 96 Oxygen Delivery Method Room Air Intake Visit Reasons: RA Intake Note: Patient present today for RA follow up visit. 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 Patient states that around 15 years ago he woke up 1 day with abrupt onset of bilateral hip pain soon after he started having pain swelling and stiffness of his fingers. He was evaluated at [facility]. He was diagnosed with rheumatoid arthritis and started on methotrexate and prednisone with good improvement. After some time the prednisone was discontinued and methotrexate continued. Patient was on methotrexate for a total of 2-3 years but he felt better overall and stopped the treatment. Over the years he was feeling reasonably well until about 2-3 years ago when he started having recurrent bilateral hip stiffness as well as pain and stiffness of his hands, fingers, right shoulder. He denies any other symptoms. Denies any skin rashes, denies fevers, shortness of breath, weight loss. Denies any history of DVT/PE. He is unaware of any family history of an autoimmune rheumatic disease. Denies history of psoriasis. 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 [employer] Review of Systems Const Denies fever(s), Denies weight gain and Denies weight loss Eyes Reports itchy eyes Card Denies dyspnea on exertion Resp Denies dyspnea on exertion Musc Reports deformity, Reports arthralgias, Reports joint swelling, Reports limited range of motion and Reports stiffness Aller/Immun Reports itchy eyes Physical Exam Vital Signs: Last Vital Signs Pulse 86 10/21/23 15:20 BP 146/82 H 10/21/23 15:20 Pulse Ox 96 10/21/23 15:20 Oxygen Delivery Method Room Air 10/21/23 15:20 BMI result Body Mass Index 30.4 Const General: cooperative, healthy appearing and comfortable Nutritional Appearance: overweight Orientation/consciousness: patient oriented x3 Limitations: no limitations HEENT Head: Yes normocephalic and Yes atraumatic Mouth: moist mucous membranes Resp Effort & Inspection: normal respiratory effort and able to speak in complete sentences Auscultation: clear to auscultation bilaterally Cardio Rate: regular rate Rhythm: regular rhythm Skin General skin exam: no rashes or lesions noted Neuro General: patient oriented x3 Extrem Other: Bilateral swollen hands, swollen fingers. No wrist tenderness to palpation but the pain with flexion and extension. Limited range of motion of wrists bilaterally Synovial thickening of MCPs bilaterally . 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 strength No flexor tendon tenderness bilaterally No elbow pain with flexion and extension bilaterally Normal range of motion of both shoulders, some tenderness to palpation of right shoulder anteriorly Normal nailfold capillaroscopy Negative straight leg raise test bilaterally Negative Fabere test bilaterally Mild abdominal pain/left groin pain with flexion adduction and internal rotation of left hip Right foot bunion and bunionette Negative MTP tenderness Negative MTP squeeze test Assessment & Plan Assessment & Plan (1) Rheumatoid arthritis: Comment: dx approx 2009 ttt MTX + prednisone for 2-3 years then lost to follow up Code(s): M06.9 - Rheumatoid arthritis, unspecified Category: Medical Qualifiers: Rheumatoid arthritis location: multiple sites Rheumatoid factor presence: unspecified presence Qualified Code(s): M06.9 - Rheumatoid arthritis, unspecified Plan: This is a 63-year-old male with history of RA diagnosed approximately 15 years ago, treated with methotrexate and prednisone for 2-3 years then has been off DMARDs since then. On exam patient has multiple swollen joints. Will need to restart DMARDs. Check labs. Check new baseline x-rays of involved joints Will restart methotrexate 15 mg weekly for 2 weeks then 20 mg weekly. Start folic acid 1 mg daily. Start prednisone taper for relief. 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 Panel Today M06.9 - Rheumatoid arthritis, unspecified Immunofixation Pnl, Serum Today M06.9 - Rheumatoid arthritis, unspecified HIV Ab/Ag Today Z11.59 - Encounter for screening for other viral diseases Rheumatoid Factor Today M06.9 - Rheumatoid arthritis, unspecified Cyclic Citrullinated Peptide Today M06.9 - Rheumatoid arthritis, unspecified Hemoglobin A1c Today Z79.52 - remote computer terminal operator (current) use of systemic steroids XR shoulder LT min 2V Today M06.9 - Rheumatoid arthritis, unspecified XR shoulder RT min 2V Today M06.9 - Rheumatoid arthritis, unspecified XR foot RT min 3V Today M06.9 - Rheumatoid arthritis, unspecified C Reactive Protein 2 Months M06.9 - Rheumatoid arthritis, unspecified, Z79.631 - remote computer terminal operator (current) use of antimetabolite agent Erythrocyte Sedimentation Rate 2 Months M06.9 - Rheumatoid arthritis, unspecified, Z79.631 - remote computer terminal operator (current) use of antimetabolite agent SHERYL Reflex Titer and Pattern Today M06.9 - Rheumatoid arthritis, unspecified C Reactive Protein Today M06.9 - Rheumatoid arthritis, unspecified Hepatitis A,B,C Profile Today Z11.59 - Encounter for screening for other viral diseases Erythrocyte Sedimentation Rate Today M06.9 - Rheumatoid arthritis, unspecified Protein Electrophoresis, Serum Today M06.9 - Rheumatoid arthritis, unspecified T Spot TB Today Z11.7 - Encounter for testing for latent tuberculosis infection Angiotensin Converting Enzyme Today M06.9 - Rheumatoid arthritis, unspecified XR hand wrist LT Today M06.9 - Rheumatoid arthritis, unspecified XR hand wrist RT Today M06.9 - Rheumatoid arthritis, unspecified XR hip LT min 2V Today M06.9 - Rheumatoid arthritis, unspecified XR hip RT min 2V Today M06.9 - Rheumatoid arthritis, unspecified XR foot LT min 3V Today M06.9 - Rheumatoid arthritis, unspecified Complete Blood Count Auto Diff 2 Months M06.9 - Rheumatoid arthritis, unspecified, Z79.631 - remote computer terminal operator (current) use of antimetabolite agent Comprehensive Met. Panel 2 Months M06.9 - Rheumatoid arthritis, unspecified, Z79.631 - remote computer terminal operator (current) use of antimetabolite agent Medications: New methotrexate sodium orally; orally every week; take 6 tabs weekly for 2 weeks then 8 tabs weekly 64 tabs 0RF folic acid 1 mg PO DAILY 90 tabs 1RF prednisone Take 4 tabs daily for 1 week, 3 tabs daily for 1 week, 2 tabs daily for 1 week, 1 tab daily for 1 week then stop 70 tabs 0RF Coding Level of Care Code New Pt Level 4 (74785) Diagnoses Rheumatoid arthritis involving multiple sites, unspecified whether rheumatoid factor present M06.9 Rheumatoid arthritis location: multiple sites Rheumatoid factor presence: unspecified presence 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
[2023-10-21 15:20] VITALS: BP 146/82; PULSE 86; O2SAT 96; BMI 30.4
== END 2023-10-21 15:57 | disposition home or self-care (01) ==
PROVIDERS: PCP Nurse Practitioner Family; Visit Provider Student in an Organized Health Care Education/Training Program
DX: M06.9 Rheumatoid arthritis, unspecified (principal); Z79.631 Long term (current) use of antimetabolite agent
CPT/HCPCS: 99204

== ENCOUNTER → 2023-10-21 15:17 | Outpatient (BNVA) | payer OTHER, SELFPAY | PROVIDERS: PCP Nurse Practitioner Family; Visit Provider Student in an Organized Health Care Education/Training Program ==

== ENCOUNTER 2023-10-24 11:01 | Outpatient (REF) | payer OTHER, SELFPAY ==
--- NOTE | ~2023-10-24 | XR_ITS ---
X-RAY BILATERAL HIPS CLINICAL HISTORY: Rheumatoid arthritis. COMPARISON: No relevant prior studies are available for comparison. TECHNIQUE: 2 views of each hip. FINDINGS: No acute fracture or subluxation. Joint spaces are maintained. No osseous erosions. Large calcifications along the soft tissues of the medial right thigh, possibly sequela of myositis ossificans. XR/XR hip LT min 2V IMPRESSION: No acute radiographic abnormality. No radiographic evidence of inflammatory or erosive arthritis.
--- NOTE | ~2023-10-24 | XR_ITS ---
EXAMINATION: XR SHOULDER, RIGHT CLINICAL INFORMATION: Rheumatoid arthritis. COMPARISON: Radiograph right shoulder 08/17/2021. TECHNIQUE: Three views of the right shoulder. FINDINGS: No acute fracture or subluxation. Mild degenerative osteoarthritis of the acromioclavicular joint with bony spurring. No osseous erosions. Chronic deformity along the superolateral aspect of the humeral head. No abnormal soft tissue calcifications. Visualized portions of the right-sided ribs and right lung are within normal limits. XR/XR shoulder RT min 2V IMPRESSION: 1. No acute fracture or subluxation. 2. Mild degenerative osteoarthritis of the acromioclavicular joint. 3. Chronic deformity along the superolateral aspect of the humeral head.
--- NOTE | ~2023-10-24 | XR_ITS ---
RADIOGRAPHS OF THE RIGHT AND LEFT FOOT CLINICAL HISTORY: Rheumatoid arthritis. COMPARISON: No relevant prior studies are available for comparison. TECHNIQUE: 3 views of each foot. FINDINGS: No acute fracture or subluxation. Mild bilateral hallux valgus deformity with trace degenerative osteoarthritis of the first metatarsophalangeal joints. Prominent ossific density along the dorsal surface of the talus on the lateral view of the left foot. No osseous erosions. No unusual soft tissue calcifications. Diffuse bilateral soft tissue swelling. XR/XR foot RT min 3V IMPRESSION: 1. Mild bilateral hallux valgus deformity with trace degenerative osteoarthritis of the first metatarsophalangeal joints. 2. Prominent calcific density along the dorsal aspect of the talus in the lateral view of the left foot, possibly sequela of prior trauma or degenerative changes. Recommend correlation with physical examination for point tenderness. 3. No radiographic evidence of erosions.
--- NOTE | ~2023-10-24 | XR_ITS ---
RADIOGRAPH BILATERAL HANDS/WRISTS CLINICAL HISTORY: Rheumatoid arthritis. COMPARISON: No relevant prior studies are available for comparison. TECHNIQUE: 4 views of each hand/wrist. FINDINGS: No acute fracture or subluxation. Joint space narrowing, bony productive changes and subcortical cystic changes in the left greater than right first carpometacarpal joints, subtle erosions might be present as well. Equivocal focal marginal erosion along the ulnar surface of the distal aspect of the proximal phalanx of the second digit on the right hand. Mild multifocal joint space narrowing and marginal osteophytes along the bilateral interphalangeal joints. Punctate radiopacity overlying the soft tissues of the distal aspect of the third digit on the right hand. Mild diffuse soft tissue thickening bilaterally. XR/XR hand wrist LT IMPRESSION: 1. No acute fracture or subluxation. 2. Moderate osteoarthritis of the left greater than right first carpometacarpal joints, possibly a combination of degenerative and inflammatory etiology. 3. Equivocal marginal erosion along the ulnar surface of the distal aspect of the proximal phalanx of the second digit on the right hand. 4. Punctate soft tissue density in the distal aspect of the third digit of the right hand. 5. Diffuse bilateral soft tissue thickening.
--- NOTE | ~2023-10-24 | XR_ITS ---
RADIOGRAPH BILATERAL HANDS/WRISTS CLINICAL HISTORY: Rheumatoid arthritis. COMPARISON: No relevant prior studies are available for comparison. TECHNIQUE: 4 views of each hand/wrist. FINDINGS: No acute fracture or subluxation. Joint space narrowing, bony productive changes and subcortical cystic changes in the left greater than right first carpometacarpal joints, subtle erosions might be present as well. Equivocal focal marginal erosion along the ulnar surface of the distal aspect of the proximal phalanx of the second digit on the right hand. Mild multifocal joint space narrowing and marginal osteophytes along the bilateral interphalangeal joints. Punctate radiopacity overlying the soft tissues of the distal aspect of the third digit on the right hand. Mild diffuse soft tissue thickening bilaterally. XR/XR hand wrist RT IMPRESSION: 1. No acute fracture or subluxation. 2. Moderate osteoarthritis of the left greater than right first carpometacarpal joints, possibly a combination of degenerative and inflammatory etiology. 3. Equivocal marginal erosion along the ulnar surface of the distal aspect of the proximal phalanx of the second digit on the right hand. 4. Punctate soft tissue density in the distal aspect of the third digit of the right hand. 5. Diffuse bilateral soft tissue thickening.
--- NOTE | ~2023-10-24 | XR_ITS ---
X-RAY BILATERAL HIPS CLINICAL HISTORY: Rheumatoid arthritis. COMPARISON: No relevant prior studies are available for comparison. TECHNIQUE: 2 views of each hip. FINDINGS: No acute fracture or subluxation. Joint spaces are maintained. No osseous erosions. Large calcifications along the soft tissues of the medial right thigh, possibly sequela of myositis ossificans. XR/XR hip RT min 2V IMPRESSION: No acute radiographic abnormality. No radiographic evidence of inflammatory or erosive arthritis.
--- NOTE | ~2023-10-24 | XR_ITS ---
EXAMINATION: XR SHOULDER, LEFT CLINICAL INFORMATION: Rheumatoid arthritis. COMPARISON: None available. TECHNIQUE: Three views of the left shoulder. FINDINGS: No acute fracture or subluxation. Moderate degenerative osteoarthritis of the acromioclavicular joint. Chronic appearing deformity along the superolateral aspect of the humeral head. No osseous erosions. No abnormal soft tissue calcifications. Visualized portions of the left lung and left ribs are within normal limits. XR/XR shoulder LT min 2V IMPRESSION: 1. No acute fracture or subluxation. 2. Moderate degenerative osteoarthritis of the acromioclavicular joint.
--- NOTE | ~2023-10-24 | XR_ITS ---
RADIOGRAPHS OF THE RIGHT AND LEFT FOOT CLINICAL HISTORY: Rheumatoid arthritis. COMPARISON: No relevant prior studies are available for comparison. TECHNIQUE: 3 views of each foot. FINDINGS: No acute fracture or subluxation. Mild bilateral hallux valgus deformity with trace degenerative osteoarthritis of the first metatarsophalangeal joints. Prominent ossific density along the dorsal surface of the talus on the lateral view of the left foot. No osseous erosions. No unusual soft tissue calcifications. Diffuse bilateral soft tissue swelling. XR/XR foot LT min 3V IMPRESSION: 1. Mild bilateral hallux valgus deformity with trace degenerative osteoarthritis of the first metatarsophalangeal joints. 2. Prominent calcific density along the dorsal aspect of the talus in the lateral view of the left foot, possibly sequela of prior trauma or degenerative changes. Recommend correlation with physical examination for point tenderness. 3. No radiographic evidence of erosions.
[2023-10-24 11:21] LABS: MANUAL DIFF FLAG NO
[2023-10-24 11:57] LABS: Basophils Percent Auto 0.9 % (0-2); Eosinophils Absolute Auto 0.2 X10*3/uL (0.0-0.4); Eosinophils Percent Auto 4.3 % (0-4); Hematocrit 37.7 % (42.0-52.0); Hemoglobin 12.4 g/dl (14.0-18.0); Imm Gran Abs Auto 0.02 X10*3/uL (0.00-0.03); Imm Gran Pct Auto 0.5 % (0.0-0.4); Lymphocytes Absolute Auto 1.5 X10*3/uL (1.2-4.9); Lymphocytes Percent Auto 33.9 % (20-40); Mean Corpuscular HGB Conc 32.9 g/dl (31.0-36.0); Mean Corpuscular Hemoglobin 29.9 pg (27.0-33.0); Mean Corpuscular Volume 90.8 fL (80.0-98.0); Mean Platelet Volume 10.3 fL (9.4-12.4); Monocytes Absolute Auto 0.4 X10*3/uL (0.1-1.2); Neutrophils Absolute Auto 2.2 x10*3/uL (2.0-8.3); Neutrophils Percent Auto 50.4 % (45-73); Platelet Count 277 X10*3/uL (160-400); Red Blood Count 4.15 X10*6/uL (4.60-5.80); Red Cell Distribution Width 12.7 % (11.0-16.0); White Blood Count 4.4 X10*3/uL (4.8-10.8)
[2023-10-24 12:09] LABS: Estimated Average Glucose 111 mg/dL; Hemoglobin A1c % 5.5 % (<6.0)
[2023-10-24 12:28] LABS: Rheumatoid Factor < 13.0 IU/mL (<15.0)
[2023-10-24 12:30] LABS: Alanine Aminotransferase 22 U/L (0-40); Albumin Level 4.5 g/dL (3.5-5.0); Alkaline Phosphatase 74 U/L (39-117); Anion Gap 9 (12-20); Aspartate Amino Transferase 28 U/L (5-37); Bilirubin Total 0.5 mg/dL (0.0-1.0); Blood Urea Nitrogen 18 mg/dL (9-16); C Reactive Protein 0.16 mg/dL (< or = 0.50); Calcium 11.3 mg/dL (8.4-10.2); Carbon Dioxide 28 mmol/L (22-29); Chloride 107 mmol/L (96-108); Estimated Glomerular Filt Rate > 60; Glucose Random 105 mg/dL (60-115); Potassium 3.7 mmol/L (3.3-5.1); Sodium 140 mmol/L (135-145); Total Protein 7.8 g/dL (6.5-8.0)
[2023-10-24 12:42] LABS: Erythrocyte Sedimentation Rate 7 MM/HR (0-15)
[2023-10-26 22:53] LABS: TS Negative Control Passed; TS Panel A 0; TS Panel B 0; TS Positive Control Passed; TSpotTB Negative (Negative)
[2023-10-27 09:04] LABS: HBS Num1 > 1000.00 mIU/mL (0-7.99); HBc Num1 4.41 S/CO (0.00-0.79); HBsAGNum1 0.26 S/CO (0.00-0.99); HIV AB/AG Nonreactive (Nonreactive); HIV Num 1 0.04 S/CO (0.00-0.99); Hepatitis A Antibody IgM 0.22 Index (0-0.79); Hepatitis B Surface Antigen Negative (Negative); ~HepC Num1 0.07 S/CO (0.00-0.79); ~Hepatitis A Antibody IgM Nonreactive (Nonreactive); ~Hepatitis B Surface Antibody REACTIVE (Nonreactive); ~Hepatitis C Antibody Nonreactive (Nonreactive)
[2023-10-27 12:14] LABS: HBc Num3 4.63 S/CO
[2023-10-27 12:15] LABS: HBc Num2 4.42 S/CO; Hepatitis B Core Antibody Reactive (Nonreactive)
[2023-10-27 13:58] LABS: Cyclic Citrullinated Peptide <16 UNITS
[2023-10-27 15:29] LABS: Anti Nuclear Antibody Screen NEGATIVE (NEGATIVE)
[2023-10-28 10:09] LABS: Prot Elec - Albumin 4.7 g/dL (3.8-4.8); Prot Elec - Alpha1 0.3 g/dL (0.2-0.3); Prot Elec - Alpha2 0.8 g/dL (0.5-0.9); Prot Elec - Beta 1 0.6 g/dL (0.4-0.6); Prot Elec - Beta 2 0.3 g/dL (0.2-0.5); Prot Elec - Gamma 1.5 g/dL (0.8-1.7); Prot Elec - Total Protein 8.2 g/dL (6.1-8.1)
[2023-10-28 19:14] LABS: Angiotensin Converting Enzyme 70 U/L (9-67)
[2023-10-29 19:28] LABS: IgA 233 mg/dL (70-320); IgG 1340 mg/dL (600-1540); IgM 84 mg/dL (50-300)
== END 2023-10-24 11:02 | disposition home or self-care (01) ==
LOC: HO.LAB 11:01
PROVIDERS: PCP Nurse Practitioner Family; Visit Provider Student in an Organized Health Care Education/Training Program
DX: M06.9 Rheumatoid arthritis, unspecified (principal); Z11.59 Encounter for screening for other viral diseases; Z79.52 Long term (current) use of systemic steroids; Z11.7 Encounter for testing for latent tuberculosis infection; Z13.1 Encounter for screening for diabetes mellitus
CPT/HCPCS: 36415; 73030; 73110; 73130; 73502; 73630; 80053; 82164; 82784; 83036; 84165; 85025; 85652; 86038; 86140; 86200; 86334; 86431; 86481; 86704; 86706; 86709; 86803; 87340; 87389

== ENCOUNTER 2024-03-02 09:00 | Outpatient (AMB) | payer MEDICAID, SELFPAY ==
--- NOTE | 2024-03-02 09:06 | A.OFFVIS_ITS ---
Vital Signs 03/02/24 09:11 Height 5 ft 5 in Weight 180 lb 15.992 oz BMI 30.1 BP 115/64 Blood Pressure Location Lt brachial Position Sitting Pulse 63 Pulse Source Pulse Oximeter Pulse Oximetry (%) 98 Oxygen Delivery Method Room Air Intake Visit Reasons: RA/cm Intake Note: Patient presents for RA. Allergies ibuprofen [From MOTRIN] Allergy (Intermediate, Verified 03/02/24 09:09) RASH latex Allergy (Intermediate, Verified 03/02/24 09:09) Rash Medication List - Last Reconciled 03/02/24 by Harshad Moraes MD amlodipine 2.5 mg PO DAILY atorvastatin 10 mg PO DAILY losartan-hydrochlorothiazide 100-12.5 mg 1 tab PO QAM methotrexate sodium orally; orally every week; take 6 tabs weekly for 2 weeks then 8 tabs weekly HPI Comments Details: 63-year-old male with seronegative RA returns for follow-up. He took the methotrexate as prescribed for 2 months, he missed his follow-up visit. He has been off the methotrexate for about 2 months now. He stated that when he was taking it he felt much better overall. Denied any side effects related to it. Initial history: This is a 63-year-old male with history of rheumatoid arthritis who presents as a new patient. Patient states that around 15 years ago he woke up 1 day with abrupt onset of bilateral hip pain soon after he started having pain swelling and stiffness of his fingers. He was evaluated at the [facility]. He was diagnosed with rheumatoid arthritis and started on methotrexate and prednisone with good improvement. After some time the prednisone was discontinued and methotrexate continued. Patient was on methotrexate for a total of 2-3 years but he felt better overall and stopped the treatment. Over the years he was feeling reasonably well until about 2-3 years ago when he started having recurrent bilateral hip stiffness as well as pain and stiffness of his hands, fingers, right shoulder. He denies any other symptoms. Denies any skin rashes, denies fevers, shortness of breath, weight loss. Denies any history of DVT/PE. He is unaware of any family history of an autoimmune rheumatic disease. Denies history of psoriasis. 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[facility] [place] Reports deformity, Reports arthralgias, Reports joint swelling, Reports limited range of motion and Reports stiffness Physical Exam Vital Signs: Last Vital Signs Pulse 63 03/02/24 09:11 BP 115/64 03/02/24 09:11 Pulse Ox 98 03/02/24 09:11 Oxygen Delivery Method Room Air 03/02/24 09:11 BMI result Body Mass Index 30.1 Const General: cooperative, healthy appearing and comfortable Nutritional Appearance: overweight Orientation/consciousness: patient oriented x3 Limitations: no limitations HEENT Head: Yes normocephalic and Yes atraumatic Mouth: moist mucous membranes Resp Effort & Inspection: normal respiratory effort and able to speak in complete sentences Cardio Rate: regular rate Rhythm: regular rhythm Skin General skin exam: no rashes or lesions noted Neuro General: patient oriented x3 Extrem Other: Bilateral relatively large hands The generalized swelling of the hands and fingers is improved compared to last visit. No wrist tenderness to palpation no pain with full flexion-extension Synovial thickening of MCPs bilaterally . Few tender MCPs bilaterally No flexor tendon tenderness bilaterally No elbow pain with flexion and extension bilaterally Normal nailfold capillaroscopy Negative straight leg raise test bilaterally Negative Fabere test bilaterally Right foot bunion and bunionette Negative MTP tenderness Negative MTP squeeze test Assessment & Plan Assessment & Plan (1) Rheumatoid arthritis: Comment: dx approx 2008 ttt MTX + prednisone for 2-3 years then lost to follow up MTX restarted 10/2023 Code(s): M06.9 - Rheumatoid arthritis, unspecified Category: Medical Qualifiers: Rheumatoid arthritis location: multiple sites Rheumatoid factor presence: unspecified presence Qualified Code(s): M06.9 - Rheumatoid arthritis, unspecified Plan: This is a 63-year-old male with seronegative RA who presents for follow-up. Patient started methotrexate as prescribed at last visit 4 months ago. He states did that he had significant improvement in his overall joint pain swelling and stiffness. He ran out of methotrexate about 2 months ago, he missed his follow-up visit. 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 Hip x-rays showing myositis ossificans. Mildly elevated Hoang level. ? 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) use of antimetabolite agent Erythrocyte Sedimentation Rate 3 Months M06.9 - Rheumatoid arthritis, unspecified, Z79.631 - senior care (current) use of antimetabolite agent Vitamin D 1,25 dihydroxy Today D86.9 - Sarcoidosis, unspecified Referrals 2 Endocrinology Referral E83.52 - Hypercalcemia Medications: New folic acid 1 mg PO DAILY 90 tabs 0RF Changed From methotrexate sodium orally; orally every week; take 6 tabs weekly for 2 weeks then 8 tabs weekly 64 tabs 0RF To methotrexate sodium 20 mg (8 x 2.5 mg) PO QWEEK 96 tabs 0RF Coding Level of Care Code Est Pt Level 4 (90114) Complex EM visit Add On G2211 Diagnoses Rheumatoid arthritis involving multiple sites, unspecified whether rheumatoid factor present M06.9 Rheumatoid arthritis location: multiple sites Rheumatoid factor presence: unspecified presence 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
[2024-03-02 09:11] VITALS: BP 115/64; PULSE 63; O2SAT 98; BMI 30.1
== END 2024-03-02 09:28 | disposition home or self-care (01) ==
PROVIDERS: PCP Nurse Practitioner Family; Visit Provider Student in an Organized Health Care Education/Training Program
DX: M06.9 Rheumatoid arthritis, unspecified (principal); Z79.631 Long term (current) use of antimetabolite agent; E83.52 Hypercalcemia
CPT/HCPCS: 99214

== ENCOUNTER → 2024-03-02 09:00 | Outpatient (BNVA) | payer MEDICAID, SELFPAY | PROVIDERS: PCP Nurse Practitioner Family; Visit Provider Student in an Organized Health Care Education/Training Program | DX: M06.09 Rheumatoid arthritis without rheumatoid factor, multiple sites (principal); E83.52 Hypercalcemia; Z79.631 Long term (current) use of antimetabolite agent | CPT/HCPCS: 99212 ==

== ENCOUNTER 2024-03-02 09:44 | Outpatient (REF) | payer MEDICAID, SELFPAY ==
[2024-03-02 10:53] LABS: MANUAL DIFF FLAG NO
[2024-03-02 11:02] LABS: Basophils Percent Auto 0.7 % (0-2); Eosinophils Absolute Auto 0.1 X10*3/uL (0.0-0.4); Eosinophils Percent Auto 3.2 % (0-4); Hematocrit 38.5 % (42.0-52.0); Hemoglobin 12.4 g/dl (14.0-18.0); Imm Gran Abs Auto 0.02 X10*3/uL (0.00-0.03); Imm Gran Pct Auto 0.5 % (0.0-0.4); Lymphocytes Absolute Auto 1.5 X10*3/uL (1.2-4.9); Lymphocytes Percent Auto 32.9 % (20-40); Mean Corpuscular HGB Conc 32.2 g/dl (31.0-36.0); Mean Corpuscular Hemoglobin 29.7 pg (27.0-33.0); Mean Corpuscular Volume 92.1 fL (80.0-98.0); Mean Platelet Volume 10.6 fL (9.4-12.4); Monocytes Absolute Auto 0.6 X10*3/uL (0.1-1.2); Monocytes Percent Auto 12.7 % (2-11); Neutrophils Absolute Auto 2.2 x10*3/uL (2.0-8.3); Platelet Count 243 X10*3/uL (160-400); Red Blood Count 4.18 X10*6/uL (4.60-5.80); Red Cell Distribution Width 12.6 % (11.0-16.0); White Blood Count 4.4 X10*3/uL (4.8-10.8)
[2024-03-02 11:47] LABS: Alanine Aminotransferase 27 U/L (0-40); Albumin Level 4.3 g/dL (3.5-5.0); Alkaline Phosphatase 72 U/L (39-117); Anion Gap 14 (12-20); Aspartate Amino Transferase 34 U/L (5-37); Bilirubin Total 0.5 mg/dL (0.0-1.0); Blood Urea Nitrogen 19 mg/dL (9-16); C Reactive Protein 0.14 mg/dL (< or = 0.50); Calcium 11.1 mg/dL (8.4-10.2); Carbon Dioxide 29 mmol/L (22-29); Chloride 102 mmol/L (96-108); Estimated Glomerular Filt Rate > 60; Glucose Random 117 mg/dL (60-115); Potassium 3.4 mmol/L (3.3-5.1); Sodium 142 mmol/L (135-145); Total Protein 7.6 g/dL (6.5-8.0)
[2024-03-02 11:52] LABS: Erythrocyte Sedimentation Rate 6 MM/HR (0-15)
[2024-03-06 16:38] LABS: Vitamin D 25-OH, D2 <4 ng/mL; Vitamin D 25-OH, D3 26 ng/mL; Vitamin D 25-OH, Total 26 ng/mL (30-100)
[2024-03-07 06:03] LABS: VITAMIN D (1,25 OH) D3 36 pg/mL; Vit D (1,25-Dihydroxy) Total 36 pg/mL (18-72); Vitamin D (1,25 OH) D2 <8 pg/mL
[2024-03-08 22:39] LABS: Angiotensin Converting Enzyme 76.7 U/L (9-67)
== END 2024-03-02 09:45 | disposition home or self-care (01) ==
LOC: HO.10HDL 09:44
PROVIDERS: Visit Provider Student in an Organized Health Care Education/Training Program
DX: M06.9 Rheumatoid arthritis, unspecified (principal); D86.9 Sarcoidosis, unspecified; Z79.631 Long term (current) use of antimetabolite agent
CPT/HCPCS: 36415; 80053; 82164; 82306; 82652; 85025; 85652; 86140

== ENCOUNTER 2024-03-08 09:31 | Outpatient (REF) | payer MEDICAID, SELFPAY ==
[2024-03-08 11:11] LABS: MANUAL DIFF FLAG NO
[2024-03-08 11:24] LABS: Eosinophils Absolute Auto 0.2 X10*3/uL (0.0-0.4); Eosinophils Percent Auto 3.9 % (0-4); Hematocrit 36.8 % (42.0-52.0); Hemoglobin 12.1 g/dl (14.0-18.0); Imm Gran Abs Auto 0.01 X10*3/uL (0.00-0.03); Imm Gran Pct Auto 0.2 % (0.0-0.4); Lymphocytes Absolute Auto 1.5 X10*3/uL (1.2-4.9); Lymphocytes Percent Auto 37.3 % (20-40); Mean Corpuscular HGB Conc 32.9 g/dl (31.0-36.0); Mean Corpuscular Hemoglobin 30.2 pg (27.0-33.0); Mean Corpuscular Volume 91.8 fL (80.0-98.0); Mean Platelet Volume 10.8 fL (9.4-12.4); Monocytes Absolute Auto 0.4 X10*3/uL (0.1-1.2); Monocytes Percent Auto 10.8 % (2-11); Neutrophils Absolute Auto 1.9 x10*3/uL (2.0-8.3); Neutrophils Percent Auto 46.8 % (45-73); Platelet Count 231 X10*3/uL (160-400); Red Blood Count 4.01 X10*6/uL (4.60-5.80); Red Cell Distribution Width 12.4 % (11.0-16.0); White Blood Count 4.1 X10*3/uL (4.8-10.8)
[2024-03-08 11:54] LABS: Appearance Urine Clear; Color Urine Yellow; Glucose Urine UA Negative (Negative); Leukocyte Esterase Urine Negative (Negative); Nitrite Urine Negative (Negative); PH 6.5 (5.0-9.0); Urine Blood Negative (Negative); Urine Ketones Negative (Negative); Urine Protein Negative (Neg-Trace)
[2024-03-08 11:59] LABS: Bacteria Urine None Seen (None Seen); Hyaline Casts Urine 0-2 /LPF (0-2); RBC Urine 0-2 /HPF (0-2); Squamous Epithelial Cell Urine 0-2 /HPF (0-2); WBC Urine 0-5 /HPF (0-5)
[2024-03-08 12:41] LABS: Alanine Aminotransferase 39 U/L (0-40); Albumin Level 4.3 g/dL (3.5-5.0); Alkaline Phosphatase 87 U/L (39-117); Anion Gap 12 (12-20); Aspartate Amino Transferase 39 U/L (5-37); Bilirubin Total 0.5 mg/dL (0.0-1.0); Blood Urea Nitrogen 17 mg/dL (9-16); Calcium 11.2 mg/dL (8.4-10.2); Carbon Dioxide 27 mmol/L (22-29); Chloride 105 mmol/L (96-108); Estimated Glomerular Filt Rate > 60; Glucose Random 105 mg/dL (60-115); Potassium 3.5 mmol/L (3.3-5.1); Sodium 140 mmol/L (135-145); Total Protein 7.4 g/dL (6.5-8.0)
[2024-03-08 12:57] LABS: Vitamin D 25-OH Total 37.3 ng/mL (>30)
[2024-03-08 13:01] LABS: Parathyroid Hormone Intact 141.8 pg/mL (8.7-77.1)
[2024-03-08 13:04] LABS: Prostate Specific Antigen 2.97 ng/mL (<0.05-4.0)
[2024-03-08 13:23] LABS: Estimated Average Glucose 117 mg/dL; Hemoglobin A1C 161.7351 umol/L; Hemoglobin A1c % 5.7 % (<6.0); Total Hemoglobin (HGBA1C) 4172.4863 umol/L
== END 2024-03-08 09:32 | disposition home or self-care (01) ==
LOC: HO.HHCL 09:31
PROVIDERS: Internal Medicine; Nurse Practitioner Family; Visit Provider Nurse Practitioner Family
DX: Z12.5 Encounter for screening for malignant neoplasm of prostate (principal); R30.0 Dysuria; D64.9 Anemia, unspecified; E83.52 Hypercalcemia; E78.2 Mixed hyperlipidemia; Z80.42 Family history of malignant neoplasm of prostate
CPT/HCPCS: 36415; 80053; 81001; 82306; 83036; 83970; 84153; 85025

== ENCOUNTER 2024-03-15 09:39 | Outpatient (AMB) | payer MEDICAID, SELFPAY ==
--- NOTE | 2024-03-15 09:41 | A.OFFVIS_ITS ---
Vital Signs 03/15/24 09:43 Height 5 ft 5 in Weight 185 lb 3.013 oz BMI 30.8 BP 134/70 Blood Pressure Location Lt brachial Position Sitting Pulse 97 Pulse Source Pulse Oximeter Intake Visit Reasons: Hypercalcemia-confirmed Intake Note: New patient present today for Hypercalcemia office visit. Educational Coordinator Required: No Accompanied by: Self / Same As Patient Allergies ibuprofen [From MOTRIN] Allergy (Intermediate, Verified 03/02/24 09:09) RASH latex Allergy (Intermediate, Verified 03/02/24 09:09) Rash Medication List - Last Reconciled 03/15/24 by Autumn Patel MD amlodipine 2.5 mg PO DAILY atorvastatin 10 mg PO DAILY cholecalciferol (vitamin D3) 25 mcg PO DAILY folic acid 1 mg PO DAILY losartan-hydrochlorothiazide 100-12.5 mg 1 tab PO QAM methotrexate sodium 20 mg (8 x 2.5 mg) PO QWEEK HPI Comments Details: 63-year-old male here today for evaluation of hypercalcemia. Noted to have high calcium at least dating back May 2021 since then caclium levels have been in the range of 11.1- 11.2. Most recent labs 03/08/24 showed calcium of 11.2 with albumin of 4.3, PTH 141, vitamin D 37, normal kidney function. Had a kidney stones many years ago, nothing recently in the last 15 years. No hematuria. No fractures. On Losartan- HCTZ 12.5 mg daily now since 2 years. Not on calcium supplements Takes vitamin D 1000 untis daily for the past 6 months Milk one serving every 2 weeks. 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 No family history of kidney stones or calcium problems. Physical exam General: sitting comfortably in no acute distress HEENT: normocephalic/atraumatic, moist oral mucosa Neck: supple, symmetrical, no thyromegaly , no dorsocervical or supraclavicular fat pads Cardiac: normal heart sounds Pulm: normal breath sounds B/L, no added breath sounds Abd: not distended, no tenderness Extremities: no edema, no signs of myxedema Neuro: AAO x3, Speech: normal, no facial droop, moving all 4 extremities Laboratory Tests 05/17/21 07/14/23 10/24/23 12:03 10:50 11:19 Creatinine Estimated GFR Calcium 11.1 H 10.7 H 11.3 H Albumin 4.3 4.3 4.5 Angiotensin Convert Enz 25-OH Vitamin D Total 1,25 Dihydroxy Vit D 25-Hydroxy Vitamin D2 1,25 Dihydroxy Vit D2 25-Hydroxy Vitamin D3 1,25 Dihydroxy Vit D3 PTH Intact 03/02/24 03/08/24 09:46 09:40 Creatinine 1.02 1.01 Estimated GFR > 60 > 60 Calcium 11.1 H 11.2 H Albumin 4.3 4.3 Angiotensin Convert Enz 76.7 H 25-OH Vitamin D Total 26 L 37.3 1,25 Dihydroxy Vit D 36 25-Hydroxy Vitamin D2 <4 1,25 Dihydroxy Vit D2 <8 25-Hydroxy Vitamin D3 26 1,25 Dihydroxy Vit D3 36 PTH Intact 141.8 H PFSH Medical History Arthritis High cholesterol High blood pressure Surgical History History of ankle surgery H/O colonoscopy History of carpal tunnel release Hx of hand surgery Social History Patient Tobacco Use Status: Never used Tobacco Current occupational status: employed 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 Noted to have high calcium at least dating back May 2021 since then caclium levels have been in the range of 11.1- 11.2. Most recent labs 03/08/24 showed calcium of 11.2 with albumin of 4.3, PTH 141, vitamin D 37, normal kidney function. He is on vitamin-D 1000 units daily. Given normal kidney function, appropriate vitamin-D levels, with high calcium levels, all consistent with most likely differential primary hyperparathyroidism. We are obtaining a 24 hour urine collection to evaluate him for hypercalciuria, however we will also help rule out other differential of familial hypercalcemic hypocalciuria. Unlikely to be FHH, given age of presentation and no family history of calcium disorders. However he could possibly have a low 24 hour urine calcium given he barely has any nutritional intake of calcium. His kidney function is normal, he has not had any recent kidney stones but has a remote history of kidney stones. I will obtain an ultrasound of his kidneys. No history of fractures, we will obtain a bone density scan. So far his only criteria for surgery that he has met as his degree of hypercalcemia with calcium of 11.2, however if I correct that with the albumin, corrected calcium is 11.1 mg/dL. We will plan to repeat his labs prior to his next follow up. Once I have all the above data, we will consider ordering imaging for the parathyroid. Plan: -ordered PTH, calcium, ionized calcium, magnesium, phosphorus, creatinine levels -ordered 24 hour urine calcium, creatinine levels -stop hydrochlorothiazide-losartan combination, switch to losartan only, asked to monitor his blood pressure at home and keep his primary care physician in the loop about stopping hydrochlorothiazide -continue vitamin-D 1000 units daily -ordered bone density scan including forearm -ordered ultrasound of the kidneys -follow up in 6 weeks to discuss results (2) Hyperparathyroidism: Code(s): E21.3 - Hyperparathyroidism, unspecified Category: Medical Plan: see above Plan I spent 40 minutes in reviewing the record, seeing the patient and documenting in the medical record. Orders: Orders Calcium, Ionized Today E21.3 - Hyperparathyroidism, unspecified, E83.52 - Hypercalcemia Creatinine, 24 Hr Group Today E21.3 - Hyperparathyroidism, unspecified, E83.52 - Hypercalcemia XR DEXA axial skeleton Today E21.3 - Hyperparathyroidism, unspecified, E83.52 - Hypercalcemia US renal BI Today E21.3 - Hyperparathyroidism, unspecified Albumin Level Today E21.3 - Hyperparathyroidism, unspecified, E83.52 - Hypercalcemia Calcium Today E21.3 - Hyperparathyroidism, unspecified, E83.52 - Hypercalcemia Parathyroid Hormone Intact Today E21.3 - Hyperparathyroidism, unspecified, E83.52 - Hypercalcemia Phosphorus Today E21.3 - Hyperparathyroidism, unspecified, E83.52 - Hypercalcemia Vitamin D 25-OH Total Today E21.3 - Hyperparathyroidism, unspecified, E83.52 - Hypercalcemia Calcium, 24 Hr Ur Today E21.3 - Hyperparathyroidism, unspecified, E83.52 - Hypercalcemia Magnesium Today E21.3 - Hyperparathyroidism, unspecified, E83.52 - Hypercalcemia Basic Metabolic Panel Today E21.3 - Hyperparathyroidism, unspecified, E83.52 - Hypercalcemia XR DEXA appendicular skeleton Today E21.3 - Hyperparathyroidism, unspecified, E83.52 - Hypercalcemia Medications: New losartan 100 mg PO DAILY 90 tabs 3RF Patient Instructions: Stop losartan- HCTZ combination pill Start losartan once daily by itself Monitor you blood pressure at home as we are stopping one medication, if your higher number meaning systolic reading is greater than 140 or your lower number meaning diastolic is greater than 90 , call your primary care physician to add another blood pressure medicine not HCTZ. Do 24 hr urine collection and blood work the same time that you hand in the 24 hr urine 24 hr urine collection instructions You have been asked to collect your urine for 24 hours to assess for calcium excretion. You must choose a 24 hour period of time when you will be home. The morning of the first day, DISCARD the FIRST morning void and then note the time. You will collect every single void from then on for 24 hours. For example, if you wake up at 6am and urinate, flush down that void. You will then collect every drop of urine all day and all night through 6am the following day. You will urinate one last time at 6am for the collection. The jug of urine must be kept in the refrigerator until you bring it to the lab.You have been asked to collect your urine for 24 hours to assess for calcium excretion. You must choose a 24 hour period of time when you will be home. The morning of the first day, DISCARD the FIRST morning void and then note the time. You will collect every single void from then on for 24 hours. For example, if you wake up at 6am and urinate, flush down that void. You will then collect every drop of urine all day and all night through 6am the following day. You will urinate one last time at 6am for the collection. The jug of urine must be kept in the refrigerator until you bring it to the lab. Do bone density scans Do ultrasound of your kidneys iwill see you back in 6 weeks to discuss all these results further Coding Level of Care Code New Pt Level 4 (91251) Diagnoses Hypercalcemia E83.52 Hyperparathyroidism E21.3 Time Spent (min) 40
[2024-03-15 09:43] VITALS: BP 134/70; PULSE 97; BMI 30.8
== END 2024-03-15 10:36 | disposition home or self-care (01) ==
PROVIDERS: PCP Nurse Practitioner Family; Visit Provider Student in an Organized Health Care Education/Training Program
DX: E83.52 Hypercalcemia (principal); E21.3 Hyperparathyroidism, unspecified
CPT/HCPCS: 99204

== ENCOUNTER → 2024-03-15 09:39 | Outpatient (BNVA) | payer MEDICAID, SELFPAY | PROVIDERS: PCP Nurse Practitioner Family; Visit Provider Student in an Organized Health Care Education/Training Program | DX: E83.52 Hypercalcemia (principal) | CPT/HCPCS: 99202 ==

== ENCOUNTER 2024-03-19 09:50 | Outpatient (REF) | payer MEDICAID, SELFPAY ==
[2024-03-19 11:05] LABS: Parathyroid Hormone Intact 155.7 pg/mL (8.7-77.1)
[2024-03-19 11:13] LABS: Albumin Level 4.2 g/dL (3.5-5.0); Anion Gap 6 (12-20); Blood Urea Nitrogen 15 mg/dL (9-16); Calcium 10.1 mg/dL (8.4-10.2); Carbon Dioxide 27 mmol/L (22-29); Chloride 107 mmol/L (96-108); Estimated Glomerular Filt Rate > 60; Glucose Random 117 mg/dL (60-115); Magnesium 2.2 mg/dL (1.6-2.6); Phosphorus 1.8 mg/dL (2.7-4.5); Potassium 3.4 mmol/L (3.3-5.1); Sodium 137 mmol/L (135-145); Vitamin D 25-OH Total 33.3 ng/mL (>30)
[2024-03-19 13:17] LABS: Creatinine, 24Hr Urine 1.7 G/Day (1.0-2.0); Total Volume 24 Hour Urine 1300 mL
[2024-03-20 17:07] LABS: Calcium, 24 Hr Urine 166 mg/24 h; Calcium/Creatinine Ratio 103 mg/g creat (30-210); Creatinine 24Hr Urine 1.61 g/24 h (0.50-2.15)
[2024-03-22 21:54] LABS: Calcium, Ionized 5.8 mg/dL (4.7-5.5)
== END 2024-03-19 09:51 | disposition home or self-care (01) ==
LOC: HO.10HDL 09:50
PROVIDERS: Visit Provider Student in an Organized Health Care Education/Training Program
DX: E21.3 Hyperparathyroidism, unspecified (principal)
CPT/HCPCS: 36415; 80048; 82040; 82306; 82330; 82340; 82570; 83735; 83970; 84100

== ENCOUNTER 2024-04-22 09:39 | Outpatient (REF) | payer MEDICARE, MEDICAID, SELFPAY ==
--- NOTE | ~2024-04-22 | MM_ITS ---
EXAMINATION: BONE DENSITOMETRY CLINICAL INDICATION: Hypercalcemia. Hyperparathyroidism. COMPARISON: This is the patient's baseline examination. TECHNIQUE: Using a [employer] DXA System (software version: 13.1) manufactured by [employer], dual-energy x-ray absorptiometry was performed of the lumbar spine, left hip and left forearm radius 33%. The images are of good technical quality. Summary results are attached. FINDINGS: LEFT FEMUR, NECK: BMD 1.143 g/cm2, Z-score 0.5, T-score 0.6, normal. LEFT FEMUR, TOTAL: BMD 1.348 g/cm2, Z-score 1.3, T-score 1.7, normal. AP SPINE L1-L4: BMD 1.253 g/cm2, Z-score -0.1, T-score 0.3, normal. LEFT FOREARM RADIUS 33%: BMD 1.065 g/cm2, Z-score 0.7, T-score 0.8, normal. IDENTIFIED RISK FACTORS: Rheumatoid arthritis, hyperparathyroidism, glucocorticoids. HISTORY OF FRACTURE: None listed. MEDICATIONS: Vitamin D. MM/XR DEXA appendicular skeleton IMPRESSION: 1. DIAGNOSIS: Normal bone density based on the lowest T-score value of 0.3 in the lumbar spine applying World Health Organization criteria. 2. 10-YEAR FRACTURE RISK PREDICTION, FRAX: According to the guidelines, FRAX calculation should only be performed on patients in the osteopenia bone density category. Therefore, FRAX was not performed on this patient. 3. Treatment Recommendations: NOF guidelines recommend consideration for treatment in postmenopausal women and men age 50 and older presenting with the following: -A hip or vertebral (clinical or morphometric) fracture. -T-score less than or equal to -2.5 at the femoral neck or spine after appropriate evaluation to exclude secondary causes. -Low bone mass at the hip or spine and a 10-year fracture probability by FRAX of greater than or equal to 3% for hip fracture or greater than or equal to 20% for major osteoporotic fracture based on the [place] adapted WHO algorithm. 4. Other Recommendations: All treatment decisions require clinical judgment and consideration of individual patient factors, including patient preferences, comorbidities, previous drug use, risk factors not captured in the FRAX model (e.g. frailty, falls, vitamin D deficiency, increased bone turnover, interval significant decline in bone density) and possible under or overestimation of fracture risk by FRAX. FUTURE SCAN RECOMMENDATION: People with diagnosed cases of osteoporosis or at high risk for fracture should have regular bone mineral density tests. For patients eligible for Medicare, routine testing is allowed once every 2 years. The testing frequency can be increased to one year for patients who have rapidly progressing disease, those who are receiving or discontinuing medical therapy to restore bone mass, or have additional risk factors. Electronically signed by: Oracio Pnada MD 04/22/2024 12:42 PM [facility]
== END 2024-04-22 09:40 | disposition home or self-care (01) ==
LOC: HO.MAMMO 09:39
PROVIDERS: PCP Internal Medicine; Visit Provider Student in an Organized Health Care Education/Training Program
DX: E83.52 Hypercalcemia (principal)
CPT/HCPCS: 77081

== ENCOUNTER 2024-04-27 10:23 | Outpatient (REF) | payer MEDICARE, MEDICAID, SELFPAY ==
[2024-04-27 12:25] LABS: Prostate Specific Antigen 2.63 ng/mL (<0.05-4.0)
== END 2024-04-27 10:24 | disposition home or self-care (01) ==
LOC: HO.10HDL 10:23
PROVIDERS: Visit Provider Nurse Practitioner Family
DX: Z12.5 Encounter for screening for malignant neoplasm of prostate (principal); Z80.42 Family history of malignant neoplasm of prostate
CPT/HCPCS: 36415; 84153

== ENCOUNTER 2024-04-29 11:13 | Outpatient (AMB) | payer MEDICARE, MEDICAID, SELFPAY ==
[2024-04-29 11:20] VITALS: BP 162/80; PULSE 110; BMI 32.2
--- NOTE | 2024-04-29 11:20 | A.OFFVIS_ITS ---
Vital Signs 04/29/24 11:20 04/29/24 12:33 Height 5 ft 5 in Weight 193 lb 12.581 oz BMI 32.2 BP 162/80 H 144/80 H Blood Pressure Location Lt brachial Lt brachial Position Sitting Pulse 110 H Pulse Source Pulse Oximeter Intake Visit Reasons: hypercalcemia Intake Note: Patient present today for hypercalcemia follow up visit. 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 Accompanied by: Self / Same As Patient Allergies ibuprofen [From MOTRIN] Allergy (Intermediate, Verified 04/29/24 11:27) RASH latex Allergy (Intermediate, Verified 04/29/24 11:27) Rash Medication List - Last Reconciled 04/29/24 by Autumn Patel MD amlodipine 2.5 mg PO DAILY atorvastatin 10 mg PO DAILY cholecalciferol (vitamin D3) 25 mcg PO DAILY folic acid 1 mg PO DAILY losartan 100 mg PO DAILY methotrexate sodium 20 mg (8 x 2.5 mg) PO QWEEK naproxen 500 mg PO BID HPI Comments Details: 63-year-old male here today for follow up of PTH mediated hypercalcemia HPI from prior visit Noted to have high calcium at least dating back May 2021 since then caclium le vels have been in the range of 11.1- 11.2. Most recent labs 03/08/24 showed calcium of 11.2 with albumin of 4.3, PTH 141, vitamin D 37, normal kidney function. Had a kidney stones many years ago, nothing recently in the last 15 years. No hematuria. No fractures. On Losartan- HCTZ 12.5 mg daily now since 2 years. Not on calcium supplements Takes vitamin D 1000 untis daily for the past 6 months Milk one serving every 2 weeks. 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 No family history of kidney stones or calcium problems. Interval history Remains off HCTZ,. Stopped Last visit 03/15/2024 BP records 130s / 60 to 80s at home maintaing a log Currently taking vitamin D 1000 units daily Still not taking much calcium in diet Bone density 04/22/24 : normal 03/19/24 : labs showed total calcium improved to 10.1 with albumin of 4.2, corrected calcium would be 9.9, ionized calcium mildly elevated at 5.8, PTH elevated at 155.7, normal kidney function, vitamin-D level of 33.3, 24 hour urine calcium of 166 with calcium creatinine ratio of 103, fractional excretion of calcium 0.01. Feca : 0.01 03/19/24 Physical exam General: sitting comfortably in no acute distress HEENT: normocephalic/atraumatic, moist oral mucosa Neck: supple, symmetrical, no thyromegaly , no dorsocervical or supraclavicular fat pads Cardiac: normal heart sounds Pulm: normal breath sounds B/L, no added breath sounds Abd: not distended, no tenderness Extremities: no edema, no signs of myxedema Neuro: AAO x3, Speech: normal, no facial droop, moving all 4 extremities Laboratory Tests 05/17/21 07/14/23 10/24/23 12:03 10:50 11:19 Creatinine Estimated GFR Calcium 11.1 H 10.7 H 11.3 H Albumin 4.3 4.3 4.5 Angiotensin Convert Enz 25-OH Vitamin D Total 1,25 Dihydroxy Vit D 25-Hydroxy Vitamin D2 1,25 Dihydroxy Vit D2 25-Hydroxy Vitamin D3 1,25 Dihydroxy Vit D3 PTH Intact 03/02/24 03/08/24 09:46 09:40 Creatinine 1.02 1.01 Estimated GFR > 60 > 60 Calcium 11.1 H 11.2 H Albumin 4.3 4.3 Angiotensin Convert Enz 76.7 H 25-OH Vitamin D Total 26 L 37.3 1,25 Dihydroxy Vit D 36 25-Hydroxy Vitamin D2 <4 1,25 Dihydroxy Vit D2 <8 25-Hydroxy Vitamin D3 26 1,25 Dihydroxy Vit D3 36 PTH Intact 141.8 H Laboratory Tests 03/19/24 03/19/24 08:30 10:03 Creatinine 0.99 Estimated GFR > 60 Calcium 10.1 D Ionized Calcium 5.8 H Phosphorus 1.8 L Magnesium 2.2 Albumin 4.2 25-OH Vitamin D Total 33.3 PTH Intact 155.7 H Ur 24 Hour Volume 1300 Ur Creatinine mg/dL 134.50 Ur Creatinine 24 Hour 1.7 Ur Calcium 24 Hr 166 Calcium/Creat 24 Hr 103 Feca : 0.01 03/19/24 EXAMINATION: BONE DENSITOMETRY 04/22 CLINICAL INDICATION: Hypercalcemia. Hyperparathyroidism. COMPARISON: This is the patient's baseline examination. TECHNIQUE: Using a [employer] DXA System (software version: 13.1) manufactured by [employer], dual-energy x-ray absorptiometry was performed of the lumbar spine, left hip and left forearm radius 33%. The images are of good technical quality. Summary results are attached. FINDINGS: LEFT FEMUR, NECK: BMD 1.143 g/cm2, Z-score 0.5, T-score 0.6, normal. LEFT FEMUR, TOTAL: BMD 1.348 g/cm2, Z-score 1.3, T-score 1.7, normal. AP SPINE L1-L4: BMD 1.253 g/cm2, Z-score -0.1, T-score 0.3, normal. LEFT FOREARM RADIUS 33%: BMD 1.065 g/cm2, Z-score 0.7, T-score 0.8, normal. IDENTIFIED RISK FACTORS: Rheumatoid arthritis, hyperparathyroidism, glucocorticoids. HISTORY OF FRACTURE: None listed. MEDICATIONS: Vitamin D. MM/XR DEXA appendicular skeleton IMPRESSION: 1. DIAGNOSIS: Normal bone density based on the lowest T-score value of 0.3 in the lumbar spine applying World Health Organization criteria. 2. 10-YEAR FRACTURE RISK PREDICTION, FRAX: According to the guidelines, FRAX calculation should only be performed on patients in the osteopenia bone density category. Therefore, FRAX was not performed on this patient. 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 Noted to have high calcium at least dating back May 2021 since then caclium levels have been in the range of 11.1- 11.2. I do not have any labs prior to that stating that he had normal calcium levels. labs 03/08/24 showed calcium of 11.2 with albumin of 4.3, PTH 141, vitamin D 37, normal kidney function. He is on vitamin-D 1000 units daily. Given normal kidney function, appropriate vitamin-D levels, with high calcium levels, all consistent with most likely differential primary hyperparathyroidism. 03/19/24 : labs showed total calcium improved to 10.1 with albumin of 4.2, corrected calcium would be 9.9, ionized calcium mildly elevated at 5.8, PTH elevated at 155.7, normal kidney function, vitamin-D level of 33.3, 24 hour urine calcium of 166 with calcium creatinine ratio of 103, fractional excretion of calcium 0.01. Feca : 0.01 03/19/24 could not rule out FH. However I feel that calcium excretion in the urine is low likely due to poor calcium intake. His bone density scan from 04/22/2024 was also normal including the forearm. So far his only criteria for surgery that he has met as his degree of hypercalcemia with calcium of 11.2, however if I correct that with the albumin, corrected calcium is 11.1 mg/dL. Plus recently calcium levels have improved after stopping the hydrochlorothiazide on 03/15/2024. At this time given the low urinary excretion of calcium, I would like him to repeat labs after increasing his calcium intake for the next 3 months. If he continues to have a low urinary calcium excretion, we will have to send him for genetic evaluation for FHH. Plan: -ordered PTH, calcium, ionized calcium, , phosphorus, creatinine levels and 24 hour urine calcium and creatinine to be repeated in 3 months after increasing calcium intake 2000 mg daily through diet -stay off hydrochlorothiazide -continue vitamin-D 1000 units daily -ordered ultrasound of the kidneys -follow up in 3 months (2) Hyperparathyroidism: Code(s): E21.3 - Hyperparathyroidism, unspecified Category: Medical Plan: see above Plan I spent 30 minutes in reviewing the record, seeing the patient and documenting in the medical record. Orders: Orders Albumin Level 3 Months E21.3 - Hyperparathyroidism, unspecified, E83.52 - Hypercalcemia Calcium, Ionized 3 Months E21.3 - Hyperparathyroidism, unspecified, E83.52 - Hypercalcemia Vitamin D 25-OH Total 3 Months E21.3 - Hyperparathyroidism, unspecified, E83.52 - Hypercalcemia Calcium, 24 Hr Ur 3 Months E21.3 - Hyperparathyroidism, unspecified, E83.52 - Hypercalcemia Calcium 3 Months E21.3 - Hyperparathyroidism, unspecified, E83.52 - Hypercalcemia Parathyroid Hormone Intact 3 Months E21.3 - Hyperparathyroidism, unspecified, E83.52 - Hypercalcemia Phosphorus 3 Months E21.3 - Hyperparathyroidism, unspecified, E83.52 - Hypercalcemia Creatinine, 24 Hr Group 3 Months E21.3 - Hyperparathyroidism, unspecified, E83.52 - Hypercalcemia Patient Instructions: Do ultrasound of kidneys , someone will call to schedule this Increase calcium intake to 1000 mg daily which is usually 2-3 servings of calcium kori foods daily such as milk, cheese ( 2% cottage cheese ) , low fat yogurt , ice cream Repeat 24 hr urine and blood work same day as you give the urine in 3 months 24 hr urine collection instructions You have been asked to collect your urine for 24 hours to assess for calcium excretion. You must choose a 24 hour period of time when you will be home. The morning of the first day, DISCARD the FIRST morning void and then note the time. You will collect every single void from then on for 24 hours. For example, if you wake up at 6am and urinate, flush down that void. You will then collect every drop of urine all day and all night through 6am the following day. You will urinate one last time at 6am for the collection. The jug of urine must be kept in the refrigerator until you bring it to the lab.You have been asked to collect your urine for 24 hours to assess for calcium excretion. You must choose a 24 hour period of time when you will be home. The morning of the first day, DISCARD the FIRST morning void and then note the time. You will collect every single void from then on for 24 hours. For example, if you wake up at 6am and urinate, flush down that void. You will then collect every drop of urine all day and all night through 6am the following day. You will urinate one last time at 6am for the collection. The jug of urine must be kept in the refrigerator until you bring it to the lab. Continue vitamin D 1000 units daily Stay off HCTZ , continue recording BP, and bring log book next visit Coding Level of Care Code Est Pt Level 4 (51754) Diagnoses Hypercalcemia E83.52 Hyperparathyroidism E21.3 Time Spent (min) 30
[2024-04-29 12:33] VITALS: BP 144/80
== END 2024-04-29 12:34 | disposition home or self-care (01) ==
PROVIDERS: PCP Internal Medicine; Visit Provider Student in an Organized Health Care Education/Training Program
DX: E21.3 Hyperparathyroidism, unspecified (principal)
CPT/HCPCS: 99214

== ENCOUNTER → 2024-04-29 11:13 | Outpatient (BNVA) | payer MEDICARE, MEDICAID, SELFPAY | PROVIDERS: PCP Internal Medicine; Visit Provider Student in an Organized Health Care Education/Training Program | DX: E83.52 Hypercalcemia (principal); E21.3 Hyperparathyroidism, unspecified | CPT/HCPCS: 99212 ==

== ENCOUNTER 2024-05-12 11:00 | Outpatient (AMB) | payer MEDICAID, SELFPAY ==
--- NOTE | 2024-05-12 11:02 | A.OFFVIS_ITS ---
Intake Visit Reasons: 6m/PSA Intake Note: Patient presents today for follow up visit on: Family Hx of Prostate Cancer * PSA: 2.63 Urology Medications: none Allergies to Antibiotic: none Blood Thinner: none Supervisor Power Reactor Required: No Accompanied by: Self / Same As Patient Allergies ibuprofen [From MOTRIN] Allergy (Intermediate, Verified 05/12/24 11:36) RASH latex Allergy (Intermediate, Verified 05/12/24 11:36) Rash Medication List - Last Reconciled 05/12/24 by HOSSEIN WarrenP- amlodipine 10 mg PO DAILY atorvastatin 10 mg PO DAILY cholecalciferol (vitamin D3) 25 mcg PO DAILY folic acid 1 mg PO DAILY losartan 100 mg PO DAILY methotrexate sodium 20 mg (8 x 2.5 mg) PO QWEEK naproxen 500 mg PO BID HPI Comments Details: Ag is a very pleasant 64-year-old male patient of Dr. Tee. He has a past medical history of hypertension, arthritis, and hypercholesteremia. He presents to the office today for follow-up. Of note, patient was seen approximately 6 months ago as a new patient for a family history of prostate cancer at which time discussion regarding surveillance monitoring of PSAs and AMY is were reviewed. In discussion with the patient today he reports to be doing and feeling well. Reports no bothersome urinary issues since his last office visit here. He does report noting episodes of urinary hesitancy at times but feels he is managing this well independently. He does have a family history of prostate cancer. Patient reports father and multiple uncles as well as grandfather and great grandfather all had prostate cancer. PSAs are as follows: 07/26 2.7, 04/27 2.6 He reports noting bladder pressure worsens when attempting to hold his urination. Discussed healthy bathroom behaviors. He otherwise denies urinary urgency, urinary frequency, incontinence, nocturia, hematuria, dysuria, foul smelling urine, changes to urinary stream, flank pain, fever, and or chills. He is happy with his current voiding parameters. Discussed surveillance monitoring of PSA given family history of prostate cancer. He reports having had AMY with PCP that was normal. He discusses at length his eating habits. He otherwise offers no other issues or concerns at this time. 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 - [employer] Review of Systems Const All systems reviewed & are unremarkable except as noted in HPI and below Physical Exam Const General: cooperative, healthy appearing, comfortable, no acute distress, well developed, alert and awake Orientation/consciousness: patient oriented x3 Limitations: no limitations HEENT Head: Yes normal to inspection, Yes normocephalic and Yes atraumatic Ears: hearing grossly normal bilaterally Eyes General: appearance normal, both eyes and all related structures Neck Neck: Yes normal visual inspection and Yes trachea midline Chest Chest palpation & inspection: normal inspection of the chest Resp Effort & Inspection: normal respiratory effort and able to speak in complete sentences Cardio Rate: regular rate GI Inspection: Yes normal to inspection General: Yes no CVA tenderness Back/Spine/Pelvis Back: no CVA tenderness Skin General skin exam: no rashes or lesions noted Neuro General: patient oriented x3 Extrem General: Yes normal to inspection Psych Appearance: grossly normal and well kempt Mental Status: mental status grossly normal Speech and movement: Normal speech and movement present and Clear speech present Affect: normal affect Attitude: cooperative Thought process: Normal thought process present Thought content: Normal thought content present Insight: Fair insight present (Psych) Judgement: Fair judgement present (Psych) Results AMB Urinalysis, Automated UA Leukoctes 0 Angelina/uL Last Edit by Adilene Hernández on 05/12/24 11:31 UA Nitrite Last Edit by Adilene Hernández on 05/12/24 11:31 UA Urobilinogen 0.2 mg/dL Last Edit by Adilene Hernández on 05/12/24 11:31 UA Protein 15 mg/dL Last Edit by Adilene Hernández on 05/12/24 11:31 UA pH 6.0 Last Edit by Adilene Hernández on 05/12/24 11:31 UA Blood 25 Ebenezer/uL Last Edit by Adilene Hernández on 05/12/24 11:31 UA Specific [place] 1.020 Last Edit by Adilene Hernández on 05/12/24 11:31 UA Ketone Last Edit by Adilene Hernández on 05/12/24 11:31 UA Bilirubin 0 mg/dL Last Edit by Adilene Hernández on 05/12/24 11:31 UA Glucose 0 mg/dL Last Edit by Adilene Hernández on 05/12/24 11:31 Results Reviewed Results Reviewed: Laboratory Last Values Urine pH (Auto) 6.0 05/12/24 11:30 Specific [place] (Auto) 1.020 05/12/24 11:30 Urine Protein (Auto) 15 mg/dL 05/12/24 11:30 Glucose (UA)(Auto) 0 mg/dL 05/12/24 11:30 Urine Blood (Auto) 25 Ebenezer/uL 05/12/24 11:30 Urine Bilirubin (Auto) 0 mg/dL 05/12/24 11:30 Urine Urobilinogen (Auto) 0.2 mg/dL 05/12/24 11:30 Leukocyte Esterase (Auto) 0 Angelina/uL 05/12/24 11:30 Assessment & Plan Assessment & Plan (1) Family history of prostate cancer: Code(s): Z80.42 - Family history of malignant neoplasm of prostate Category: Medical (2) History of urinary hesitancy: Code(s): Z87.898 - Personal history of other specified conditions Category: Medical Plan In office urinalysis results reviewed the patient today; as noted above. Recent PSA results reviewed with the patient today as noted above. Patient currently denies any bothersome urinary issues or concerns. Will continue with surveillance monitoring. He reports be happy with current voiding parameters. Follow-up in 6 months with PVR; or sooner with any issues, concerns, and or que stions. Orders: Orders AMB Urinalysis Automated Today Z13.9 - Encounter for screening, unspecified Patient Instructions: The patient had an opportunity to ask questions regarding the treatment plan. All questions were answered. Physical exam, labs, and imaging were discussed and reviewed in detail. As well as risks, benefits, and discussion of treatment choices. No major barriers to understanding were identified. The patient exp ressed understanding and agreement with the above treatment plan. The patient was made aware they should contact our office by phone for worsening of their current condition, the appearance of new symptoms, or with any questions or concerns. Compliance is encouraged with any medications and follow up testing that is ordered. It is a privilege to be allowed the opportunity to participate in? your urological care.? Again, if you have any questions or concerns If you have any questions or concerns please do not hesitate to contact me. The office is [phone]. This note is constructed using voice recognition software. While every effort has been made to ensure accuracy assorter laundry errors may have been included. Yours sincerely, JULIEN Warren Coding Level of Care Code Est Pt Level 3 (70192) Diagnoses Family history of prostate cancer Z80.42 History of urinary hesitancy Z87.898
== END 2024-05-12 11:40 | disposition home or self-care (01) ==
PROVIDERS: PCP Nurse Practitioner Family; Visit Provider Nurse Practitioner Family
DX: Z80.42 Family history of malignant neoplasm of prostate (principal); Z87.898 Personal history of other specified conditions; Z13.9 Encounter for screening, unspecified
CPT/HCPCS: 99213

== ENCOUNTER → 2024-05-12 11:00 | Outpatient (BNVA) | payer MEDICARE, MEDICAID, SELFPAY | PROVIDERS: PCP Nurse Practitioner Family; Visit Provider Nurse Practitioner Family | DX: R39.11 Hesitancy of micturition (principal); Z80.42 Family history of malignant neoplasm of prostate; Z87.898 Personal history of other specified conditions | CPT/HCPCS: 81003; 99212 ==

== ENCOUNTER 2024-07-19 12:39 | Outpatient (REF) | payer MEDICARE, MEDICAID, SELFPAY ==
--- NOTE | ~2024-07-19 | US_ITS ---
CLINICAL HISTORY: E21.3 - Hyperparathyroidism, unspecified US Renal Comparison: None Findings: Right kidney normal size and echotexture, 9.3 cm length. Left kidney normal size and echotexture, 10.0 cm length. 2.9 x 2.8 x 2.5 cm cyst containing a septation within the midportion of the left kidney. 1.7 cm simple cyst within the upper pole of the left kidney. No hydronephrosis of either kidney. Normal color Doppler IMPRESSION: 1. No acute abnormality of the kidneys. 2. 2.9 cm mildly complex cyst within the midportion of the left kidney. This document has been electronically signed by: Dolly Campbell MD on 07/20/2024 15:43:13
--- OUTSIDE RECORDS SUMMARY | 2024-07-19 14:41 | XMS_ITS | Encounter Summary ---
Author Organization [facility] Address [address] [facility] 7t [place] [address] Care Team Providers Care Meat Boner And Slicer Name Role Phone Ant Estelle RUBALCAVA Primary Care Provider Citlali Tee NP Primary Care Provider [phone] Encounter Details Date Type Department Care Team (Late st Contact Info) Description 04/16/[address] [facility] [address] [place], [place] [phone] Susan Pimentel LPN Social History Tobacco Use Types Packs/Day Years Used Date Smoking Tobacco: Never Assessed Sex and Gender Information Value Date Recorded Sex Assigned at Male 03/04/2022 10:38 AM EDT Legal Sex Male 10:38 AM EDT Gender Identity Male 03/04/2022 10:38 AM EDT Sexual Orientation Don't know 03/04/2022 10 :38 AM EDT documented as of this encounter Plan of Treatment Upcoming Encounters Date Type Department Care Team (Late st Contact Info) Description 08/10/2024 11:30 AM EDT Office Visit [facility] [address] [place] [address] Citlali Tee NP [address] [place] [address] documented as of this encounter Procedures Procedure Name Priority Date/Time Associated Diagnosis Comments T-SPOT(R).TB Routine 10/24/2023 11:19 AM EDT PROTEIN ELECTROPHORESIS AND KAPPA/LAMBDA LIGHT CHAINS, SERUM Routine 10/24/2023 11:19 AM EDT HEPATITIS PANEL, GENERAL Routine 10/24/2023 11:19 AM EDT CBC WITH AUTO DIFFERENTIAL Routine 10/24/2023 11:19 AM EDT CYCLIC CITRULLINATED PEPTIDE (CCP) AB (IGG) Routine 10/24/2023 11:19 AM EDT HIV 1/2 ANTIGEN/ANTIBODY, FOURTH GENERATION W/RFL Routine 10/24/2023 11:19 AM EDT SED RATE BY MODIFIED WESTERGREN Routine 10/24/2023 11:19 AM EDT RHEUMATOID FACTOR Routine 10/24/2023 11: 19 AM EDT EWNDEGZMWJO-4-GRCZSEDIB G ENZYME Routine 10/24/2023 11:19 AM EDT IMMUNOFIXATION, SERUM Routine 10/24/2023 11:19 AM EDT C-REACTIVE PROTEIN Routine 10/24/2023 11 :19 AM EDT SHERYL SCREEN, IFA, W/REFL TITER AND PATTERN Routine 10/24/2023 11:19 AM EDT HEMOGLOBIN A1C Routine 10/24/2023 11:19 AM EDT COMPREHENSIVE METABOLIC PANEL Routine 10/24/2023 11:19 AM EDT documented in this encounter Results * Immunofixation, Serum (10/24/2023 11:19 AM EDT) IMMUNOGLOBULIN G 1340 600 - 1540 mg/dL LABS IMMUNOGLOBULIN A 233 70 - 320 mg/dL LABS Immunoglobulin M 84 50 - 300 mg/dL LABS Comment:THIS TEST WAS PERFOR MED AT:[facility] [place] [phone] BLANCHARD MD Immunofixation Result SEE NOTE LABS Comment:Normal pattern. No m onoclonal proteins detected. 10/24/2023 11:1 9 AM EDT 10/24/2023 11:19 AM EDT us Generic External Data Provider LAB BLOOD ORDERAB LES Final Result Performing Organization Address [facility]/ZIP Co de Phone Number LABS [address] [place] [phone] * (ABNORMAL) Angiotensin -1- Converting Enzyme (10/24/2023 11:19 AM EDT) Angiotensin Converting Enzyme 70(A) 9 - 67 U/L LABS Comment:THIS TEST WAS PERFOR MED AT:[id number] [place] [address]SDNTNBKTYLER DU MD,PHD 10/24/2023 11:1 9 AM EDT 10/24/2023 11:19 AM EDT us Generic External Data Provider LAB BLOOD ORDERAB LES Final Result Performing Organization Address [facility]/ZIP Co de Phone Number LABS [address] [place] [phone] * (ABNORMAL) Protein Electrophoresis and [place]/Lambda Light Chains (10/24/2023 11:19 AM EDT) Prot Elec - Total Protein 8.2(A) 6.1 - 8.1 g/dL LABS Prot Elec - Albumin 4.7 3.8 - 4.8 g/dL LABS Prot Elec - Alpha1 0.3 0.2 - 0.3 g/dL LABS Prot Elec - Alpha2 0.8 0.5 - 0.9 g/dL LABS Prot Elec - Beta 1 0.6 0.4 - 0.6 g/dL LABS Prot Elec - Beta 2 0.3 0.2 - 0.5 g/dL LABS Prot Elec - Gamma 1.5 0.8 - 1.7 g/dL LABS PES - Abn Protein Band 1 TNP LABS PES-Abn Protein Band 2 [facility] PES-Abn Protein Band 3 [facility] LABS Prot Elec - Interpretation SEE NOTE LABS Comment:Normal Serum Protein Electrophoresis Pattern.No abnormal protein bands (M-protein) detected.THIS TEST WAS PERFORMED AT:[facility] [address] [phone] BLANCHARD MD 10/24/2023 11:1 9 AM EDT 10/24/2023 11:19 AM EDT us Generic External Data Provider LAB BLOOD ORDERAB LES Final Result LABS [address] [place] [phone] [phone] * SHERYL Screen,IFA, with Reflex to Titer and Pattern (10/24/2023 11:19 AM EDT) Anti Nuclear Antibody Screen NEGATIVE NEGATIVE LABS Comment:SHERYL IFA is a first l ine screen for detecting thepresence of up to approximately 150 autoantibodies invarious autoimmune diseases. A negative SHERYL IFA resultsuggests an SHERYL-associated autoimmune disease is notpresent at this time, but is not definitive. If thereis high clinical suspicion for Sjogren's syndrome,testing for anti-SS-A/Ro antibody should be considered.Anti-Saima-1 antibody should be considered for clinicallysuspected inflammatory myopathies.AC-0: NegativeInternational Consensus on SHERYL Patterns(https://doi.org/10.1515/urgf-9347-1908)For additional information, please refer tohttp://education.Taggs/faq/KSC167(This link is being provided for informational/educational purposes only.)THIS TEST WAS PERFORMED AT:[facility] [place] [phone] BLANCHARD MD SHERYL Titer [facility] LABS SHERYL Pattern [facility] LABS SHERYL TITER 2 (REF LAB) [facility] SHERYL [facility] 2 [facility] SHERYL TITER 3 [facility] SHERYL PATTERN 3 [facility] 10/24/2023 11:1 9 AM EDT 10/24/2023 11:19 AM EDT Generic External Data Provider LAB BLOOD ORDERAB LES Final Result Performing Organization Address [facility] Co de Phone Number LABS [address] [place] [phone] * Cyclic Citrullinated Peptide (CCP) Antibody (IgG) (10/24/2023 11:19 AM EDT) Pathologist [facility] Cyclic Citrullinated Peptide <16 UNITS LABS Comment:Reference RangeNegat travis: <20Weak Positive: 20-39Moderate Positive: 40-59Strong Positive: >59THIS TEST WAS PERFORMED AT:[facility] [place] [phone] BLANCHARD MD 10/24/2023 11:1 9 AM EDT 10/24/2023 11:19 AM EDT Generic External Data Provider LAB BLOOD ORDERAB LES Final Result Performing Organization Address [facility] de Phone Number LABS [address] [place] [phone] * HIV-1/2 Antigen and Antibodies, Fourth Generation, with Reflexes (10/24/2023 11:19 AM EDT) HIV AB/AG Nonreactive Nonreactive [facility] LABS Comment:HIV-1 p24 Ag and/or HIV-1/HIV-2 Ab not detected.A test result that is nonreactive does not exclude thepossibility of exposure to or infection with HIV-1 and/orHIV-2. Nonreactive results in this assay for individualswith prior exposure to HIV-1 and/or HIV-2 may be due toantigen and antibody levels that are below the limit ofdetection of this assay.The [employer] HIV Ag/Ab Combo assay result andsupplemental assay results should be interpreted inconjunction with the patient's clinical presentation,history and other laboratory results. If the results areinconsistent with clinical evidence, additional testing issuggested to confirm the result. 10/24/2023 11:1 9 AM EDT 10/24/2023 11:19 AM EDT Generic External Data Provider LAB BLOOD ORDERAB LES Final Result Performing Organization Address [facility] Co de Phone Number LABS [address] [place] [phone] * Hepatitis Panel, General (10/24/2023 11:19 AM EDT) Hepatitis A IgM Nonreactive Nonreactive LABS Comment:IgM antibodies to PITTS V not detected; does not exclude earlyacute or recovered HAV infection. ~Hepatitis B Surface Antibody REACTIVE Nonreactive LABS Comment:REACTIVE: > 11.99 mI U/mL Hepatitis B Core Antibody Reactive Nonreactive LABS Comment:Presumptive evidence of anti-HBc. Hepatitis C Antibody Nonreactive Nonreactive LABS Comment:Antibodies to HCV no t detected; does not exclude early acuteHCV infection. Hepatitis B Surface Ag Negative Negative LABS 10/24/2023 11:1 9 AM EDT 10/24/2023 11:19 AM EDT [facility] External Data Provider LAB BLOOD ORDERAB LES Final Result Performing Organization Address [facility] Co de Phone Number LABS [address] [place] [phone] * T-SPOT??.TB (10/24/2023 11:19 AM EDT) T Spot TB Negative Negative LABS Comment:A negative test resu lt does not exclude the possibilityof exposure to or infection with Mycobacteriumtuberculosis (M. tuberculosis). Patients with recentexposure to TB infected individuals exhibiting anegative T-SPOT.TB result should be considered forretesting within 6 weeks or if other relevant clinicalsymptoms indicate. Results from T-SPOT.TB testing mustbe used in conjunction with each individual'sepidemiological history, current medical status,and results of other diagnostic evaluations.The T-SPOT.TB test is qualitative and results arereported as positive, borderline, or negative, giventhat the test controls perform as expected. In linewith the Centers for Disease Control and Prevention's2010 recommendation to report quantitative measurementsalongside the qualitative result, the laboratoryprovides spot counts for informational purposes only.The T-SPOT.TB test should not be interpreted as aquantitative test. TS PANEL A 0 LABS TS PANEL B 0 LABS Negative Control Passed [facility] LABS Positive Control Passed [facility] LABS Comment:For additional infor matumair, please refer tohttp://education.[employer]/faq/MSC363(This link is being provided for informational/educational purposes only.)THIS TEST WAS PERFORMED AT:[facility] [id number] [place] [phone] DU MD,PHD 10/24/2023 11:1 9 AM EDT 10/24/2023 11:19 AM EDT us Generic External Data Provider LAB BLOOD ORDERAB LES Final Result LABS [address] [place] [phone] * Sed Rate by Modified Lonnie (10/24/2023 11:19 AM EDT) Erythrocyte Sedimentation Rate 7 0 - 15 MM/HR LABS Comment:Patients with polycy themia and many hemoglobin abnormalitiesmay have depressed sed rates whereas patients with anemiamay have elevated sed rates. 10/24/2023 11:1 9 AM EDT 10/24/2023 11:19 AM EDT Generic External Data Provider LAB BLOOD ORDERAB LES Final Result Performing Organization Address [facility]/ZIP Co de Phone Number LABS [address] [place] [phone] * C-reactive Protein (10/24/2023 11:19 AM EDT) C Reactive Protein 0.16 < or = 0.50 mg/dL LABS 10/24/2023 11:1 9 AM EDT 10/24/2023 11:19 AM EDT Generic External Data Provider LAB BLOOD ORDERAB LES Final Result Performing Organization Address [facility] de Phone Number LABS [address] [place] [phone] * (ABNORMAL) Comprehensive Metabolic Panel (10/24/2023 11:19 AM EDT) Sodium 140 135 - 145 mmol/L LABS Potassium 3.7 3.3 - 5.1 mmol/L LABS Chloride 107 96 - 108 mmol/L LABS Carbon Dioxide 28 22 - 29 mmol/L LABS Anion Gap 9(L) 12 - 20 LABS Urea Nitrogen (BUN) 18(H) 9 - 16 mg/dL LABS Creatinine, Serum 0.99 0.5 - 1.4 mg/dL LABS Estimated Glomerular Filt Rate >60 LABS Comment:NOTE: For -Am erican individuals, multiply the result by 1.210.Chronic Kidney Disease: Estimated GFR < 60 mL/min/1.86u7Rskrlc Kidney Disease: Estimated GFR < 15 mL/min/1.73m2 Glucose 105 60 - 115 mg/dL LABS Calcium 11.3(H) 8.4 - 10.2 mg/dL LABS Bilirubin, Total 0.5 0.0 - 1.0 mg/dL LABS Aspartate Amino Transferase 28 5 - 37 U/L LABS Alanine Aminotransferase 22 0 - 40 U/L LABS Total Protein 7.8 6.5 - 8.0 g/dL LABS Albumin Level 4.5 3.5 - 5.0 g/dL LABS Alkaline Phosphatase 74 39 - 117 U/L LABS 10/24/2023 11:1 9 AM EDT 10/24/2023 11:19 AM EDT Generic External Data Provider LAB BLOOD ORDERAB LES Final Result Performing Organization Address [facility]/ZIP Co de Phone Number LABS [address] [place] [phone] * Rheumatoid Factor (10/24/2023 11:19 AM EDT) Rheumatoid Factor <13.0 <15.0 IU/mL LABS 10/24/2023 11:1 9 AM EDT 10/24/2023 11:19 AM EDT Generic External Data Provider LAB BLOOD ORDERAB LES Final Result Performing Organization Address [facility] Co de Phone Number LABS [address] [place] [phone] * Hemoglobin A1c (10/24/2023 11:19 AM EDT) Hemoglobin A1c 5.5 <6.0 % [facility] LABS Comment:Hemoglobin A1C Refer ence Range Adults: 4.8 - 6.0 % Non diabetic: < 6.0 % Goal: < 7.0 %Additional Action Suggested: > 8.0 %Note: Hemoglobin A1c results are invalid for patients with abnormal amounts of HbF. Blood transfusions may impact the HbA1c concentration in the patient sample. Estimated Average Glucose 111 mg/dL LABS Comment:eAG = Estimated ave rage glucose which is %A1C expressed asaverage glucose, using the formula of the K4Z-UebsqevUrsprsy Glucose study (ADAG), Diabetes Care, Vol.31,#8,Dec. 2007 10/24/2023 11:1 9 AM EDT 10/24/2023 11:19 AM EDT us Generic External Data Provider LAB BLOOD ORDERAB LES Final Result LABS [address] [place] [phone] * (ABNORMAL) CBC auto differential (10/24/2023 11:19 AM EDT) White Blood Count 4.4(L) 4.8 - 10.8 X10*3/uL LABS Red Blood Count 4.15(L) 4.60 - 5.80 X10*6/uL LABS Hemoglobin 12.4(L) 14.0 - 18.0 g/dl LABS Hematocrit 37.7(L) 42.0 - 52.0 % LABS Mean Corpuscular Volume 90.8 80.0 - 98.0 fL LABS Mean Corpuscular Hemoglobin 29.9 27.0 - 33.0 pg LABS Mean Corpuscular HGB Conc 32.9 31.0 - 36.0 g/dl LABS Red Cell Distribution Width 12.7 11.0 - 16.0 % LABS Platelet Count 277 160 - 400 X10*3/uL LABS Mean Platelet Volume 10.3 9.4 - 12.4 fL LABS Neutrophils Percent Auto 50.4 45 - 73 % LABS Imm Gran Pct Auto 0.5(H) 0.0 - 0.4 % LABS Lymphocytes Percent Auto 33.9 20 - 40 % LABS Monocytes Percent Auto 10.0 2 - 11 % LABS Eosinophils Percent Auto 4.3(H) 0 - 4 % LABS Basophils Percent Auto 0.9 0 - 2 % LABS NRBC Pct Auto 0.0 0.0 - 0.2 /100WBC LABS Neutrophils Absolute Auto 2.2 2.0 - 8.3 x10*3/uL LABS Imm Gran Abs Auto 0.02 0.00 - 0.03 X10*3/uL LABS Lymphocytes Absolute Auto 1.5 1.2 - 4.9 X10*3/uL LABS Monocytes Absolute Auto 0.4 0.1 - 1.2 X10*3/uL LABS Eosinophils Absolute Auto 0.2 0.0 - 0.4 X10*3/uL LABS Basophils Absolute Auto 0.0 0.0 - 0.2 X10*3/uL LABS NRBC Abs Auto 0.000 0.0 - 0.012 X10*3/uL LABS 10/24/2023 11:1 9 AM EDT 10/24/2023 11:19 AM EDT us Generic External Data Provider LAB BLOOD ORDERAB LES Final Result LABS [address] [place] [phone] documented in this encounter Visit Diagnoses Not on filedocumented in this encounter Care Teams Meat Boner And Slicer Relationship Specialty Start Date End Date Estelle Cain ANP [address] [place] [address] PCP - General Family Medicine 12/26/21 07/13/23 Citlali Tee NP [address] [place] [address] PCP - General Family Medicine 07/14/23 documented as of this encounter
--- OUTSIDE RECORDS SUMMARY | 2024-07-19 14:41 | XMS_ITS | Clinical Summary ---
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 Overview (11/15/2016): Overview: Seeing [facility] Pre-employment examination 11/15/2016 History of colonoscopy 03/09/2016 Overview (11/15/2016): Overview: 2009 per previous PCP records Anemia 02/13/2016 Essential hypertension 02/13/2016 History of urinary stone 02/13/2016 Hyperlipidemia 02/13/2016 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 Immunizations Name Administration Dates Next Due Influenza Inactivated/Split Preservative Free IM 02/01/2016 Tdap 03/04/2016 Social History Tobacco Use Types Packs/Day Years Used Date Smoking Tobacco: Never Smokeless Tobacco: Never Alcohol Use Standard Drinks/Week Comments Yes 0 (1 standard drink = 0.6 oz pur e alcohol) rare beer Sex and Gender Information Value Date Recorded Sex Assigned at Not on file Gender Identity Not on file Sexual Orientation Not on file Last Filed Vital Signs Vital Sign Reading Time Taken Comments Blood Pressure 124/70 11/15/2016 10:13 AM EDT Pulse 54 11/15/2016 10:13 AM EDT Temperature - - Respiratory Rate 12 11/15/2016 10:13 AM EDT Oxygen Saturation 99% 11/15/2016 10:13 AM EDT Inhaled Oxygen Concentration - - Weight 76.2 kg (168 lb) 11/15/2016 10:13 AM EDT Height 167.6 cm (5' 6 ) 11/15/2016 10:13 AM EDT Body Mass Index 27.12 11/15/2016 10:13 AM EDT Plan of Treatment Health Maintenance Due Date Last Done Comments Hepatitis C Virus Screening 1960 HIV Screening 1972 Pneumococcal Vaccines 50+ (1 of 1 - PCV) 2009 Zoster (Shingles) Vaccine (1 of 2) 2009 COVID-19 Vaccine ( - 2023-2 5 season) 2024 DTaP/Tdap/Td Vaccines (2 - T d or Tdap) 03/04/2026 03/04/2016 RSV Vaccine 60 years and old er and Patients (1 - 1-dose 75+ series) 2034 Hepatitis B Vaccines Aged Out No long er eligible based on patient's age to complete this topic Care Teams Import And Export Clerk Relationship Specialty Start Date End Date Pcp, No PCP - General General Medicine 11/13/16
--- OUTSIDE RECORDS SUMMARY | 2024-07-19 14:41 | XMS_ITS | Encounter Summary ---
Author Organization [employer] Address [address] [facility] [address] [place] [address] Care Team Providers Care Secondary Art Teacher Name Role Phone Citlali Tee JANE Primary Care Provider [phone] Reason for Visit * Reason Comments Med Refill Encounter Details Date Type Department Care Team (Late st Contact Info) Description 08/08/2023 Refill [facility] [address] [place], [place] [phone] Estelle Cain ANP [address] [place], [place] [phone] Essential hypertension; Primary hypertension Social History Tobacco Use Types Packs/Day Years Used Date Smoking Tobacco: Never Smokeless Tobacco: Never Depression Answer Date Recorded Patient Health Questionnaire-9 Score 0 07/28/2023 Patient Health Questionnaire-9 Score 0 07/28/2023 Last PHQ-9: Questionnaire Data Not on file 0 07/28/2023 Housing Stability Answer Date Recorded What is your housing situation today? I have yoseph melissa 07/28/[address] you li ve. Do you have problems with any of the following? None of the above 07/28/2023 Food Insecurity Answer Date Recorded Within the past 12 months, y ou worried that your food would run out before you got money to buy more: Never True 07/28/2023 Within the past 12 months,th e food you bought just didn't last and you didn't have enough money to get more: Never True Transportation Answer Date Recorded In the past 12 months, has l ack of transportation kept you from medical appts, meetings, work or from getting things needed for daily living? No 07/28/2023 Utilities Answer Date Recorded In the past 12 months, has t he electric, gas, oil or water company threatened to shut off services in your home? No 07/28/2023 Depression Answer Date Recorded Patient Health Questionnaire-2 Score 0 07/28/2023 Sex and Gender Information Value Date Recorded Sex Assigned at Male 03/04/2022 10:38 AM EDT Legal Sex Male 10:38 AM EDT Gender Identity Male 03/04/2022 10:38 AM EDT Sexual Orientation Don't know 03/04/2022 10 :38 AM EDT documented as of this encounter Plan of Treatment Upcoming Encounters Date Type Department Care Team (Late st Contact Info) Description 08/10/2024 11:30 AM EDT Office Visit [facility] [address] [place] [address] Citlali Tee NP [address] [place] [address] documented as of this encounter Visit Diagnoses Diagnosis Essential hypertension Unspecified essential hypertension Primary hypertension Unspecified essential hypertension documented in this encounter Additional Health Concerns Assessment Noted Time PHQ-9 Depression Total Score: 0 07/28/19 24 11:03 AM EDT documented as of this encounter Care Teams Secondary Art Teacher Relationship Specialty Start Date End Date Citlali Tee NP [address] [place] [address] PCP - General Family Medicine 07/14/23 documented as of this encounter
--- OUTSIDE RECORDS SUMMARY | 2024-07-19 14:41 | XMS_ITS | Clinical Summary ---
Author Organization [employer] [facility] Address [address] [facility] 7[address] [place] [address] Care Team Providers Care Vocational Training Instructor Name Role Phone Citlali Tee JANE Primary Care Provider [phone] Allergies Active Allergy Reactions Criticality Noted Date Comments Aspirin Unknown High 03/09/2016 Pt states stomach pain and stomach bleed when taking this medication. Ibuprofen 10/30/2023 Latex Unknown Medium 02/01/2016 Stewart to skin Medications losartan-hydroCHLO ROthiazide (Hyzaar) 100-25 MG tabletIndications: Essential hypertension Take 1 tablet by mouth Once per day. 90 tablet 2 11/04/19 24 025 Active amLODIPine (Norvasc) 10 MG tabletIndications: Essential hypertension,Prima ry hypertension TAKE 1 TABLET(10 MG) BY MOUTH DAILY IN THE MORNING 90 tablet 1 02/23/20 24 Active atorvastatin (Lipitor) 10 MG tabletIndications: Other hyperlipidemia TAKE 1 TABLET BY MOUTH EVERY DAY FOR HIGH CHOLESTEROL 90 tablet 05/25/19 25 Active naproxen (Naprosyn) 500 MG tabletIndications: Arthralgia of both hands TAKE 1 TABLET(500 MG) BY MOUTH IN THE MORNING AND AT BEDTIME NEEDED FOR MODERATE PAIN 60 tablet 05/27/19 25 Active Active Problems Problem Noted Date Diagnosed Date Primary hypertension 02/05/2024 Gastroesophageal reflux disease without esophagi tis 02/05/2024 Hypercalcemia 11/04/2023 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 Family history of prostate cancer 07/28/2023 Assessment & Plan (07/28/2023 1:17 PM EDT): Referral to Urology, minimal symptoms currently Pain in joint of right shoulder 10/07/2020 Seasonal allergies 10/07/2020 Hand joint pain 09/10/2020 Gastroesophageal reflux disease 09/10/2020 Murmur 05/27/2019 Colon cancer screening 05/27/2019 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 Pt is motivated to increase lifestyle modification as intervention, follow up in 2-3 months at which time we will consider med adjustment if not at goal Hyperlipemia 02/13/2016 Anemia 02/13/2016 History of urinary stone 02/13/2016 BP (high blood pressure) 02/13/2016 Hyperlipidemia 02/13/2016 Rheumatoid arthritis involving both hands 2015 Assessment & Plan (07/28/2023 1:18 PM EDT): Referral to rheumatology as pt notes increased arthralgias particularly in shoulders and hands, Encounters Date Type Department Care Team Description 06/10/2024 Telephone [facility] [address] [place] [address] Lolis Irving [place] Marybel recall 05/26/2024 Refill [facility] [address] [place] [address] Citlali Tee NP Arthralgia of both hands; Essential hypertension; Primary hypertension 05/25/2024 Refill [facility] [address] [place] [address] Citlali Tee NP Other hyperlipidemia 05/23/2024 Refill [facility] [address] [place] [address] Citlali Tee, JANE Essential hypertension; Primary hypertension; Other hyperlipidemia 04/22/2024 Orders Only [facility] External Provider, [facility] from Last 3 Months Immunizations Name Administration Dates Next Due Influenza injectable quadriv alent preservative free 05/27/2019,04/30/2018,02/27/2017,2015 Influenza, IIV3, injectable 02/12/2021, 6 Pfizer Covid-19 Vaccine 12+ 09/25/2020, Pfizer Covid-19 Vaccine 5-11 07/17/2021 Tdap 03/04/2016 Zoster, Recombinant 03/23/2021,01/19/2021 Social History Tobacco Use Types Packs/Day Years Used Date Smoking Tobacco: Never Smokeless Tobacco: Never Tobacco Cessation:Counseling Given: Not Answered Alcohol Use Standard Drinks/Week Comments Never 0 (1 standard drink = 0.6 oz pur e alcohol) Alcohol Answer Date Recorded Frequency of Alcohol Consumption Not on file 11/04/2023 Average Number of Drinks Not on file 024 Frequency of Binge Drinking Not on file 06/2023 Score 0 11/04/2023 Depression Answer Date Recorded Patient Health Questionnaire-9 [...] the past 12 months, has t he [employer], gas, oil or water company threatened to shut off services in your home? No 07/28/2023 Depression Answer Date Recorded Patient Health Questionnaire-2 Score 0 07/28/2023 Sex and Gender Information Value Date Recorded Sex Assigned at Male 03/04/2022 10:38 AM EDT Legal Sex Male 10:38 AM EDT Gender Identity Male 03/04/2022 10:38 AM EDT Sexual Orientation Don't know 03/04/2022 10 :38 AM EDT Last Filed Vital Signs Vital Sign Reading Time Taken Comments Blood Pressure 124/84 02/09/2024 10:32 AM EDT Pulse 88 02/09/2024 10:32 AM EDT Temperature 36.7 ??C (98 ??F) 02/09/2024 10:32 AM EDT Respiratory Rate 18 02/09/2024 10:32 AM EDT Oxygen Saturation 98% 11/04/2023 2:33 PM EDT Inhaled Oxygen Concentration - - Weight 82.6 kg (182 lb 3.2 oz) 02/09/2024 10:32 AM EDT Height 165.1 cm (5' 5 ) 02/09/2024 10:32 AM EDT Body Mass Index 30.32 02/09/2024 10:32 AM EDT Plan of Treatment Upcoming Encounters Date Type Department Care Team (Late st Contact Info) Description 08/10/2024 11:30 AM EDT Office Visit [facility] [address] [place] [address] Citlali Tee NP [address] [place] [address] Health Maintenance Due Date Last Done Comments CT Colonography 1959 FIT DNA/Cologuard 1959 FIT 1959 FOBT 1960 Sigmoidoscopy 1960 Pneumococcal Vaccine: 50+ Years (1 of 1 - PCV) 2009 Hepatitis B Vaccines (2 of 3 - 19+ 3-dose series) 08/07/2023 07/10/2023 COVID-19 Vaccine ( - 2023- season) 2024 07/17/2021, 09/25/2020, 09/04/2020 Influenza Vaccine (#1) 2024 , 05/27/2019, 04/30/2018, Additional history exists Depression Screening 07/27/2024 07/28/2023, 07/28/19 24 SDOH Screening 07/27/2024 07/28/2023 Alcohol/Substance Use Screening 11/03/2024 11/04/2023 Tobacco Screening 02/08/2025 02/09/2024 Diabetes: Hemoglobin A1C 03/08/2025 024, 10/24/2023, 09/18/2021, Additional history exists DTaP/Tdap/Td Vaccines (2 - Td or Tdap) 03/04/2026 03/04/2016 Lipid Panel 07/13/2028 07/14/2023, 01/03, 10/06/2020 Colonoscopy 2032 05/02/2022 Colorectal Cancer Screening 2032 RSV Patients and Patients Aged 60 years or older (1 - 1-dose 75+ series) 2034 Zoster Vaccines Completed 03/23/2021, 01/19/2021 Hepatitis C Screening Completed 10/24/2023 HIB Vaccines Aged Out No longer eligi ble based on patient's age to complete this topic HPV Vaccines Aged Out No longer eligi ble based on patient's age to complete this topic Hepatitis A Vaccines Aged Out No long er eligible based on patient's age to complete this topic IPV Vaccines Aged Out No longer eligi ble based on patient's age to complete this topic Meningococcal Vaccine Aged Out No jamaal meg eligible based on patient's age to complete this topic RSV under 20 months Aged Out No longe r eligible based on patient's age to complete this topic Rotavirus Vaccines Aged Out No longer eligible based on patient's age to complete this topic Procedures Procedure Name Priority Date/Time Associated Diagnosis Comments XR DEXA APPENDICULAR SKELETON Routine 04/22/2024 9:45 AM EST HEMOGLOBIN A1C Routine 03/08/2024 9:40 AM EST Mixed hyperlipidemia HEPATITIS PANEL, GENERAL Routine 10/24/2023 11:19 AM EDT LIPID PANEL, STANDARD Routine 07/14/2023 10:50 AM EDT Essential hypertension Arthralgia of both hands Mixed hyperlipidemia Primary hypertension HM COLONOSCOPY Routine 05/02/2022 from Last 3 Months or Most Recently Relevant to Health Maintenance Results * XR DEXA APPENDICULAR SKELETON (04/22/2024 9:45 AM EST) Anatomical Region Laterality Modality Abdomen Radiographic Mary ging 04/22/2024 9:45 AM EST Narrative 04/22/2024 12:45 PM EST ? [facility] ? [address] ?[place] [address] ? Mammography Report ? Signed ? Patient: Ag Gill ?MR#: [id number] ?? [id number] ? : 1960 ?Acct:[id number] ? Age/Sex: 63 / M ?ADM Date: 04/22/24 ? Loc: HO.MAMMO ? Attending Dr: Autumn Patel MD ? Ordering Physician: Autumn Patel MD ?Results: ? Date of Service: 04/22/ ?Follow Up: ? Procedure(s): XR DEXA appendicular skeleton ?? Accession Number(s): [id number] ? cc: Saba Hatfield MD; Autumn Patel MD ? EXAMINATION: ?? BONE DENSITOMETRY ? CLINICAL INDICATION: ?? Hypercalcemia. Hyperparathyroidism. ? COMPARISON: ?? This is the patient's baseline examination. ? TECHNIQUE: Using a Off[employer] Media DXA System (software version: ?? 13.1) manufactured by [employer], dual-energy x-ray absorptiometry ?? was performed of the lumbar spine, left hip and left forearm radius ?? 33%. The images are of good technical quality. Summary results are ?? attached. ? FINDINGS: ?? LEFT FEMUR, NECK: ?? BMD 1.143 g/cm2, Z-score 0.5, T-score 0.6, normal. ? LEFT FEMUR, TOTAL: ?? BMD 1.348 g/cm2, Z-score 1.3, T-score 1.7, normal. ? AP SPINE L1-L4: ?? BMD 1.253 g/cm2, Z-score -0.1, T-score 0.3, normal. ? LEFT FOREARM RADIUS 33%: ?? BMD 1.065 g/cm2, Z-score 0.7, T-score 0.8, normal. ? IDENTIFIED RISK FACTORS: ?? Rheumatoid arthritis, hyperparathyroidism, glucocorticoids. ? HISTORY OF FRACTURE: ?? None listed. ? MEDICATIONS: ?? Vitamin D. ? MM/XR DEXA appendicular skeleton ?? IMPRESSION: ?? 1. DIAGNOSIS: Normal bone density based on the lowest T-score value of ?? 0.3 in the lumbar spine applying World Health Organization criteria. ? 2. 10-YEAR FRACTURE RISK PREDICTION, FRAX: According to the guidelines, ?? FRAX calculation should only be performed on patients in the osteopenia ?? bone density category. Therefore, FRAX was not performed on this ?? patient. ?? 3. Treatment Recommendations: NOF guidelines recommend consideration ?? for treatment in postmenopausal women and men age 50 and older ?? presenting with the following: ?? -A hip or vertebral (clinical or morphometric) fracture. ?? -T-score less than or equal to -2.5 at the femoral neck or spine after ?? appropriate evaluation to exclude secondary causes. ?? -Low bone mass at the hip or spine and a 10-year fracture probability ?? by FRAX of greater than or equal to 3% for hip fracture or greater than ?? or equal to 20% for major osteoporotic fracture based on the [place] adapted ?? WHO algorithm. ?? 4. Other Recommendations: All treatment decisions require clinical ?? judgment and consideration of individual patient factors, including ?? patient preferences, comorbidities, previous drug use, risk factors not ?? captured in the FRAX model (e.g. frailty, falls, vitamin D deficiency, ?? increased bone turnover, interval significant decline in bone density) ?? and possible under or overestimation of fracture risk by FRAX. ? FUTURE SCAN RECOMMENDATION: ?? People with diagnosed cases of osteoporosis or at high risk for ?? fracture should have regular bone mineral density tests. For patients ?? eligible for Medicare, routine testing is allowed once every 2 years. ?? The testing frequency can be increased to one year for patients who ?? have rapidly progressing disease, those who are receiving or ?? discontinuing medical therapy to restore bone mass, or have additional ?? risk factors. ? Electronically signed by: ??Oracio Panda MD ??04/22/2024 12:42 PM EST ? Dictated By: ?Oracio Panda MD ? Signed By: ?<Electronically signed by Oracio Panda MD in OV> ? 04/22/24 1242 ? DD/ 0945 ? TD/TT: 04/22/24 1015 ? Advanced Practice Provider: PK ? Procedure Note Samy Garcia - 04/22/2024 Millie [facility] [address] [place], [place] [address] Mammography Report Signed Patient: Ag Gill R#: [id number] : 9Acct:[id number] Age/Sex: 63 / MADM Date: 04/22/24 Loc: HO.MAMMO Attending Dr: Autumn Patel MD Ordering Physician: Autumn Patelults: Date of Service: 04/22/24Follow Up: Procedure(s): XR DEXA appendicular skeleton Accession Number(s): [id number] cc: Saba Hatfield MD; Autumn Patel MD EXAMINATION: BONE DENSITOMETRY CLINICAL INDICATION: Hypercalcemia. Hyperparathyroidism. COMPARISON: This is the patient's baseline examination. TECHNIQUE: Using a [employer] Media DXA System (software version: 13.1) manufactured by [employer], dual-energy x-ray absorptiometry was performed of the lumbar spine, left hip and left forearm radius 33%. The images are of good technical quality. Summary results are attached. FINDINGS: LEFT FEMUR, NECK: BMD 1.143 g/cm2, Z-score 0.5, T-score 0.6, normal. LEFT FEMUR, TOTAL: BMD 1.348 g/cm2, Z-score 1.3, T-score 1.7, normal. AP SPINE L1-L4: BMD 1.253 g/cm2, Z-score -0.1, T-score 0.3, normal. LEFT FOREARM RADIUS 33%: BMD 1.065 g/cm2, Z-score 0.7, T-score 0.8, normal. IDENTIFIED RISK FACTORS: Rheumatoid arthritis, hyperparathyroidism, glucocorticoids. HISTORY OF FRACTURE: None listed. MEDICATIONS: Vitamin D. MM/XR DEXA appendicular skeleton IMPRESSION: 1. DIAGNOSIS: Normal bone density based on the lowest T-score value of 0.3 in the lumbar spine applying World Health Organization criteria. 2. 10-YEAR FRACTURE RISK PREDICTION, FRAX: According to the guidelines, FRAX calculation should only be performed on patients in the osteopenia bone density category. Therefore, FRAX was not performed on this patient. 3. Treatment Recommendations: NOF guidelines recommend consideration for treatment in postmenopausal women and men age 50 and older presenting with the following: -A hip or vertebral (clinical or morphometric) fracture. -T-score less than or equal to -2.5 at the femoral neck or spine after appropriate evaluation to exclude secondary causes. -Low bone mass at the hip or spine and a 10-year fracture probability by FRAX of greater than or equal to 3% for hip fracture or greater than or equal to 20% for major osteoporotic fracture based on the [place] adapted WHO algorithm. 4. Other Recommendations: All treatment decisions require clinical judgment and consideration of individual patient factors, including patient preferences, comorbidities, previous drug use, risk factors not captured in the FRAX model (e.g. frailty, falls, vitamin D deficiency, increased bone turnover, interval significant decline in bone density) and possible under or overestimation of fracture risk by FRAX. FUTURE SCAN RECOMMENDATION: People with diagnosed cases of osteoporosis or at high risk for fracture should have regular bone mineral density tests. For patients eligible for Medicare, routine testing is allowed once every 2 years. The testing frequency can be increased to one year for patients who have rapidly progressing disease, those who are receiving or discontinuing medical therapy to restore bone mass, or have additional risk factors. Electronically signed by: Oracio Panda MD 04/22/2024 12:42 PM EST Dictated By: Oracio Panda MD Signed By: <Electronically signed by Oracio Panda MD in OV> 04/22/24 1242 DD/ 0945 TD/TT: 04/22/24 1015 Advanced Practice Provider: [facility] External Provider IMG XR PROCEDURES Final Result * Hemoglobin A1c (03/08/2024 9:40 AM EST) Hemoglobin A1c 5.7 <6.0 % [facility] Comment:Hemoglobin A1C Refer ence Range Adults: 4.8 - 6.0 % Non diabetic: < 6.0 % Goal: < 7.0 %Additional Action Suggested: > 8.0 %Note: Hemoglobin A1c results are invalid for patients with abnormal amounts of HbF. Blood transfusions may impact the HbA1c concentration in the patient sample. Estimated Average Glucose 117 mg/dL [facility] Comment:eAG = Estimated ave rage glucose which is %A1C expressed asaverage glucose, using the formula of the [id number] Glucose study (ADAG), Diabetes Care, Vol.31,#8,Dec. 2007 Blood Venous blood specimen / Unknown 03/08/2024 9:40 AM EST 03/08/2024 11:04 AM EST Citlali Tee NP LAB BLOOD ORDERABLES Final Resul t [facility] [address] [place] [phone] * Hepatitis Panel, General (10/24/2023 11:19 AM EDT) Hepatitis A IgM Nonreactive Nonreactive [facility] Comment:IgM antibodies to PITTS V not detected; does not exclude earlyacute or recovered HAV infection. ~Hepatitis B Surface Antibody REACTIVE Nonreactive [facility] Comment:REACTIVE: > 11.99 mI U/mL Hepatitis B Core Antibody Reactive Nonreactive [facility] Comment:Presumptive evidence of anti-HBc. Hepatitis C Antibody Nonreactive Nonreactive [facility] Comment:Antibodies to HCV no t detected; does not exclude early acuteHCV infection. Hepatitis B Surface Ag Negative Negative [facility] 10/24/2023 11:1 9 AM EDT 10/24/2023 11:19 AM EDT us Generic External Data Provider LAB BLOOD ORDERAB LES Final Result [facility] [address] [place] [phone] * Lipid Panel, Standard (07/14/2023 10:50 AM EDT) Triglycerides 100 <150 mg/dL [facility] Comment:Desirable Triglyceri de: less than 150 mg/dLBorderline High Triglyceride 150-199 mg/dLHigh Triglyceride: 200-499 mg/dLVery High Triglyceride: greater than or equal to 5OO mg/dL Cholesterol 137 <200 mg/dL [facility] Comment:Desirable Cholestero l: less than 200 mg/dLBorderline High Cholesterol: 200-239 mg/dLHigh Cholesterol: greater than 239 mg/dL LDL Cholesterol Calculated 74 <100 mg/dL [facility] Comment:Desirable LDL: less than 100 mg/dLNear Optimal/Above Optimal LDL: 110- 129 mg/dLBorderline High LDL: 130-159 mg/dLHigh LDL: 160-189 mg/dLVery High LDL: greater than or equal to 190 mg/dL HDL Cholesterol 43 >40 mg/dL [facility] Comment:Desirable HDL: grea ter than 40 mg/dL Note: This HDL assay may give artificially low results in patients with liver disease. Blood Venous blood specimen / Unknown 07/14/2023 10:50 AM EDT 07/14/2023 1:02 PM EDT us Saba Hatfield MD LAB BLOOD ORDERABLES Final Result [facility] [address] [place] [phone] * Hm Colonoscopy (05/02/2022) Colonoscopy Normal Normal us Shawanda Feldman NP HEALTH MAINTENANCE Edited Resul t - Final from Last 3 Months or Most Recently Relevant to Health Maintenance Insurance , [id number] [place] [address] Care Teams Vocational Training Instructor Relationship Specialty Start Date End Date Citlali Tee NP [address] [place] [address] PCP - General Family Medicine 07/14/23
--- OUTSIDE RECORDS SUMMARY | 2024-07-19 14:41 | XMS_ITS | Clinical Summary ---
Author Organization [facility] ity Address [address] [place] [address] Care Team Providers Care Unix Architect Name Role Phone Unavailable Primary Care Provider Unavailabl e Social History Tobacco Use Types Packs/Day Years Used Date Smoking Tobacco: Never Assessed Sex and Gender Information Value Date Recorded Sex Assigned at Not on file Legal Sex Male 8:12 PM EST Gender Identity Not on file Sexual Orientation Not on file Plan of Treatment Health Maintenance Due Date Last Done Comments DTaP,Tdap,and Td Vaccines (1 - Tdap) 1978 Pneumococcal Vaccine: 50+ Ye ars (1 of 1 - PCV) 2009 Zoster Vaccines (1 of 2) 2009 Abdominal Aortic Aneurysm (A AA) Screen 06/03/2023 Cholesterol Screening (Lipid Panel) 06/03/2023 Colorectal Cancer Screening: Colonoscopy 06/03/2023 Depression Screening 06/03/2023 Hepatitis C Screening 06/03/2023 Social Influencers of Health Screening 06/03/2023 COVID-19 Vaccine ( - 2023-2 5 season) 2024 Influenza Vaccine (#1) 2024 Falls Risk Assessment 2024 RSV Immunization Patients 60 + Years Old (1 - 1-dose 75+ series) 2034 HIB Vaccines Aged Out No longer eligi ble based on patient's age to complete this topic HPV Vaccines Aged Out No longer eligi ble based on patient's age to complete this topic Hepatitis A Vaccines Aged Out No long er eligible based on patient's age to complete this topic Hepatitis B Vaccines Aged Out No long er eligible based on patient's age to complete this topic IPV Vaccines Aged Out No longer eligi ble based on patient's age to complete this topic MMR Vaccines Aged Out No longer eligi ble based on patient's age to complete this topic Meningococcal ACWY Vaccine Aged Out N o longer eligible based on patient's age to complete this topic Meningococcal B Vacine Aged Out No lo nger eligible based on patient's age to complete this topic Pneumococcal Vaccine: Pediat rics (0 to 5 Years) and At-Risk Patients (6 to 64 Years) Aged Out No longer eligible b ased on patient's age to complete this topic RSV Immunization Patients Un lillie 20 months Aged Out No longer eligible b ased on patient's age to complete this topic Varicella Vaccines Aged Out No longer eligible based on patient's age to complete this topic
--- OUTSIDE RECORDS SUMMARY | 2024-07-19 14:41 | XMS_ITS | Encounter Summary ---
Author Organization [email or web address] Address [address] [facility] [address] [place] [address] Care Team Providers Care Electronics Repair Technician Name Role Phone Citlali Tee NP Primary Care Provider [phone] Reason for Visit * Reason Comments Med Refill Encounter Details Date Type Department Care Team (Late st Contact Info) Description 05/23/2024 Refill [facility] [address] [place], [place] [phone] Citlali Tee NP [address] [place], [place] [phone] Essential hypertension; Primary hypertension; Other hyperlipidemia Social History Tobacco Use Types Packs/Day Years Used Date Smoking Tobacco: Never Smokeless Tobacco: Never Alcohol Use Standard Drinks/Week Comments Never 0 [...] EDT Office Visit [facility] [address] [place] [address] Citlali Tee NP [address] [place] [address] documented as of this encounter Visit Diagnoses Diagnosis Essential hypertension Unspecified essential hypertension Primary hypertension Unspecified essential hypertension Other hyperlipidemia documented in this encounter Additional Health Concerns Assessment Noted Time PHQ-9 Depression Total Score: 0 07/28/19 24 11:03 AM EDT documented as of this encounter Care Teams Electronics Repair Technician Relationship Specialty Start Date End Date Citlali Tee NP [address] [place] [address] PCP - General Family Medicine 07/14/23 documented as of this encounter
--- OUTSIDE RECORDS SUMMARY | 2024-07-19 14:41 | XMS_ITS | Encounter Summary ---
Author Organization [facility] Address [address] [facility] [address] [place] [address] Care Team Providers Care Wallpaper Printer Helper Name Role Phone Citlali Tee JANE Primary Care Provider [phone] Encounter Details Date Type Department Care Team (Late st Contact Info) Description 12/26/2023 Orders Only [facility] [address] [place] [address] Provider, MD Claude Social History Tobacco Use Types Packs/Day Years [...] Description 08/10/2024 11:30 AM EDT Office Visit [facility] [address] [place], [place] [phone] Citlali Tee NP [address] [place] [address] documented as of this encounter Procedures Procedure Name Priority Date/Time Associated Diagnosis Comments TRANSTHORACIC ECHO (TTE) COMPLETE Routine 12/23/2023 12:16 PM EDT documented in this encounter Results * Transthoracic echo (TTE) complete (12/23/2023 12:16 PM EDT) Historical Provider CV ECHO PROCEDURES Final Result documented in this encounter Visit Diagnoses Not on filedocumented in this encounter Additional Health Concerns Assessment Noted Time PHQ-9 Depression Total Score: 0 07/28/19 11:03 AM EDT documented as of this encounter Care Teams Wallpaper Printer Helper Relationship Specialty Start Date End Date Citlali Tee NP [address] [place] [address] PCP - General Family Medicine 07/14/23 documented as of this encounter
--- OUTSIDE RECORDS SUMMARY | 2024-07-19 14:41 | XMS_ITS | Clinical Summary ---
Author Organization [facility] Address [address] [place] [address] Care Team Providers Care Medical Territory Manager Name Role Phone Americo Hu PA-C Primary Care Provider [phone] Source Comments PLEASE NOTE, if this patient is a minor, it may be UNLAWFUL to discuss sensitive information that is contained in these records (such as FAMILY PLANNING, MENTAL HEALTH or SUBSTANCE ABUSE) with the minor patient's parent or other person without the patient's specific authorization.[facility] Allergies Active Allergy Reactions Criticality Noted Date Comments Aspirin Other (See Comments) High 03/09/2016 Pt states stomach pain and stomach bleed when taking this medication. Latex Other (See Comments) 02/01/2016 Stewart to skin Medications cholecalciferol, vitamin D3, 25 mcg (1,000 unit) capsuleIndication s:Vitamin D deficiency Take 1 Cap by mouth once daily 90 Cap 1 06/03/2019 Active amLODIPine (NORVASC) 5 mg tabletIndications :Essential hypertension TAKE 1 TABLET BY MOUTH EVERY DAY 30 Tablet 3 11/09/2020 Active chlorthalidone (HYGROTEN) 25 mg tabletIndications :Essential hypertension TAKE 1 TABLET BY MOUTH EVERY DAY 90 Tablet 01/29/2021 Active Active Problems Problem Noted Date Diagnosed Date Murmur 05/27/2019 Colon cancer screening 05/27/2019 Brachial plexus disorders 11/15/2016 Overview (11/15/2016): Seeing jo girardab H/O colonoscopy 03/09/2016 Overview (03/09/2016): 2009 per previous PCP records Anemia 02/13/2016 Hyperlipemia 02/13/2016 BP (high blood pressure) 02/13/2016 Rheumatoid arthritis involving both hands (HCC-C MS) 02/01/2016 Resolved Problems Problem Noted Date Diagnosed Date Resolved Date Chronic left shoulder pain 12/23/2017 0 05/27/2019 Overview (12/23/2017): X-ray showed large well corticated fracture which appers catrachito from scapula and does not appear to be acute Referred to Orthopedic Closed fracture of left scapula 12/23/2017 05/27/2019 Overview (12/23/2017): Pt was referred to Ortho H/O urinary stone 02/13/2016 05/27/2019 Immunizations Name Administration Dates Next Due Flu, Preservative Free 05/27/2019,04/30/2018,,02/01/2016 INFLUENZA, SEASONAL, INJECTABLE 02/01/2016 TDAP 03/04/2016 Family History Medical History Relation Name Comments Arthritis Maternal Grandmother Diabetes Sister Relation Name Status Comments Brother Alive Father Maternal Grandmother Mother Sister Alive Social History Tobacco Use Types Packs/Day Years Used Date Smoking Tobacco: Never Smokeless Tobacco: Never Alcohol Use Standard Drinks/Week Comments Yes 1 (1 standard drink = 0.6 oz pur e alcohol) Social Connections Answer Date Recorded Connectedness 0 01/23/2024 Financial Resource Strain Answer Date R ecorded Financial Resource Strain 0 2018 Stress Answer Date Recorded Stress 0 12/27/2018 Physical Activity Answer Date Recorded Physical Activity 0 12/27/2018 Food Insecurity Answer Date Recorded Food 0 01/29/2024 Transportation Needs Answer Date Record ed Transportation 0 12/27/2018 Housing Stability Answer Date Recorded Housing 0 12/27/2018 Safety and Environment Answer Date Haroon rded Safety 0 12/27/2018 Utilities Answer Date Recorded Utilities 0 12/27/2018 Employment Answer Date Recorded Stress 0 01/23/2024 Sex and Gender Information Value Date Recorded Sex Assigned at Male 02/27/2017 2:16 PM PDT Legal Sex Male 12:44 PM PDT Gender Identity Male 02/27/2017 2:16 PM PDT Sexual Orientation Straight 02/27/2017 2: 16 PM PDT Last Filed Vital Signs Vital Sign Reading Time Taken Comments Blood Pressure 140/85 03/16/2024 9:44 AM EST Pulse 63 03/16/2024 9:44 AM EST Temperature 36.7 ??C (98.1 ??F) 05/27/2019 3:05 PM ES T Respiratory Rate 18 05/27/2019 3:05 PM EST Oxygen Saturation 100% 02/27/2017 8:43 AM EDT Inhaled Oxygen Concentration - - Weight 77.6 kg (171 lb 1.6 oz) 05/27/2019 3:05 P M EST Height 162.6 cm (5' 4 ) 05/27/2019 3:05 PM EST Body Mass Index 29.37 05/27/2019 3:05 PM EST Plan of Treatment Upcoming Encounters Date Type Department Care Team (Late st Contact Info) Description 09/15/2024 9:40 AM EDT Office Visit [address] [id number] Donnell Howell, D [address] [place] [address] Health Maintenance Due Date Last Done Comments CT Colonography 2004 FIT/gFOBT 2004 Fecal DNA 2004 Flexible Sigmoidoscopy 2004 Imm-Pneumococcal 65+ (1 of 1 - PCV) 2009 Imm-Zoster, Recombinant (1 of 2) 2009 Annual Preventive Care Visit 05/27/2020, 04/30/2018, 08/08/2016, Additional history exists [id number]-90 ( season) 2024 07/17/2021, 09/25/2020, 09/04/2020 Imm-Influenza (#1) 2024 02/12/2021, 0 05/27/2019, 04/30/2018, Additional history exists Falls Prevention 2024 Alcohol and Drug Screen 05/05/2024 05/27/19 20, 04/30/2018, 04/30/2018, Additional history exists Depression Annual Screen 05/05/2024 05/27/2019, 04/05 Tobacco Screening 09/07/2024 09/08/2023 Diabetes Screening 03/08/2025 03/08/2024, 0 10/24/2023, 09/18/2021, Additional history exists Dental BW 03/18/2025 03/16/2024, 09/08/2023 Dental Examination 03/18/2025 03/16/2024, 09/08/2023 Dental Perio Charting 03/18/2025 03/16/2024 Dental Prophy 03/18/2025 03/16/2024, 09/08/2023 Imm-DTaP/Tdap/Td (2 - Td or Tdap) 03/04/2026 016 Colonoscopy 06/27/2026 06/27/2016 Colorectal Cancer Screening 06/27/2026 Lipid Screening 07/13/2026 07/14/2023, 05/07, 04/30/2018 Dental FMX/Pano 09/09/2028 09/08/2023 Hepatitis C Screening Completed 04/30/2018 HIV Screening Completed 10/24/2023, 10/04, 06/03/2019, Additional history exists Procedures Procedure Name Priority Date/Time Associated Diagnosis Comments COMP PERIODONTAL EVALUATION - NEW/EST PATIENT Routine 03/16/2024 9:40 AM EST Caries of enamel (incipient) Encounter for dental examination BITEWINGS - FOUR RADIOGRAPHIC IMAGES Routine 03/16/2024 9:40 AM EST Caries of enamel (incipient) Encounter for dental examination PROPHYLAXIS - ADULT Routine 03/16/2024 9 :40 AM EST Caries of enamel (incipient) Encounter for dental examination PERIODIC ORAL EVALUATION ESTABLISHED PATIENT Routine 03/16/2024 9:40 AM EST Caries of enamel (incipient) Encounter for dental examination INTRAORAL - COMP SERIES OF RADIOGRAPHIC IMAGES Routine 09/08/2023 11:00 AM EDT Encounter for dental examination ANTIBODY HIV-1&HIV-2 SINGLE RESULT Routine 06/03/2019 9:45 AM EST Encounter for general adult medical examination w/o abnormal findings HEMOGLOBIN GLYCOSYLATED A1C Routine 06/03/2019 9:45 AM EST Encounter for general adult medical examination w/o abnormal findings LIPID PANEL Routine 06/03/2019 9:44 AM EST Encounter for general adult medical examination w/o abnormal findings HEPATITIS A,B,C PANEL Routine 04/30/2018 9:50 AM EST Health care maintenance from Last 3 Months or Most Recently Relevant to Health Maintenance Results * HIV-1 & HIV-2 ANTIBODIES (06/03/2019 9:45 AM EST) Pathologist [facility] HIV 1 AND 2 ANTIBODY SCREEN NEGATIVE NEGATIVE [facility] Comment: This assay is a 4th generation assay allowing for earlier detection of HIV infection by detecting the presence of the HIV-1 p24 antigen as well as the traditional antibodies to HIV type 1 (including group O) and type 2. ??Use of a 4th generation assay is the current CDC recommendation for HIV screening. Blood specimen (specimen) Blood / Unknown 06/03/2019 9:45 AM EST 06/03/2019 9:46 AM EST [facility] - 06/03/2019 12:50 PM EST [employer], [place] [address] Customer Response Representative - Dhara Flores MD PT ID [id number] ORD# [id number] Mercedes Broderick [facility] - BLOOD DRAW Final Resu lt Performing Organization Address City/State/[facility] [place] [address], * HEMOGLOBIN, GLYCOSYLATED (A1C) (06/03/2019 9:45 AM EST) Pathologist [facility] GLYCATED HEMOGLOBIN A1C 5.1 <6.5 % [facility] ESTIMATED AVERAGE GLUCOSE 100 mg/dL [facility] Blood specimen (specimen) Blood / Unknown 06/03/2019 9:45 AM EST 06/03/2019 9:46 AM EST Narvar [facility] - 06/03/2019 12:31 PM EST [employer], [place] [address] Customer Response Representative - Dhara Flores MD PT ID [id number] ORD# [id number] Mercedes Broderick [facility] - BLOOD DRAW Final Resu lt Performing Organization Address City/[facility]/ZIP Co de Phone Number [address] [address], * (ABNORMAL) LIPID PANEL (06/03/2019 9:44 AM EST) CHOLESTEROL 187 0 - 200 mg/dL [facility] TRIGLYCERIDES 73 0 - 150 mg/dL [facility] HDL CHOLESTEROL 58 >40 mg/dL [facility] LDL CALCULATED 115(H) 0 - 100 mg/dL [facility] TC-HDLC RATIO 3.2 0 - 4.4 mg/dL [facility] Blood specimen (specimen) Blood / Unknown 06/03/2019 9:44 AM EST 06/03/2019 9:46 AM EST Narrative [facility] - 06/03/2019 12:01 PM EST [facility] [employer], [place] [address] Customer Response Representative - Dhara Flores MD PT ID [id number] ORD# [id number] Mercedes Broderick [facility] - BLOOD DRAW Final Resu lt Performing Organization Address [facility] Co de Phone Number [address] [address], * (ABNORMAL) HEPATITIS A,B,C PANEL (04/30/2018 9:50 AM EST) HEPATITIS B SURFACE ANTIBODY POSITIVE(A) NEGATIVE [facility] HEPATITIS B SURFACE ANTIGEN NEGATIVE NEGATIVE [facility] Comment: Over the counter supplements containing high doses of biotin may interfere with this assay. ??If interference is suspected, patients shoud be retested after refraining from biotin supplements for 72 hours. HEPATITIS C VIRUS DIAGNOSTIC NEGATIVE NEGATIVE [facility] HEPATITIS A ANTIBODY TOTAL POSITIVE(A) NEGATIVE [facility] Comment: Over the counter supplements containing high doses of biotin may interfere with this assay. ??If interference is suspected, patients shoud be retested after refraining from biotin supplements for 72 hours. HEPATITIS B CORE ANTIBODY POSITIVE(A) NEGATIVE [facility] Blood specimen (specimen) Blood / Unknown 04/30/2018 9:50 AM EST 04/30/2018 11:36 AM EST Narrative [facility] - 04/30/2018 7:16 PM EST [employer], a member of [address] [address] Customer Response Representative - Janell Pollack MD PT ID [id number] ORD# [id number] us Clinton Hanson MD LAB - BLOOD DRAW Edited Result - Final [address] [address], [place] [phone] from Last 3 Months or Most Recently Relevant to Health Maintenance Insurance [facility]) Member Subscriber Plan / Payer (Ef fective 2019-Present) Name:BridgetPriscilla lozanolouis Steven Relation to Subscriber:Self Name:BridgetPriscillalouis Steven Payer ID:[id number] Group ID:Not on file Type:2Peer ([employer]) Address: [address] [place] [address] [facility] [place] Care Teams Medical Territory Manager Relationship Specialty Start Date End Date Americo Hu PA-C [address] [place] [address] PCP - General 10/12/21
== END 2024-07-19 12:40 | disposition home or self-care (01) ==
LOC: HO.HMGCX 12:39
PROVIDERS: PCP Nurse Practitioner Family; Visit Provider Student in an Organized Health Care Education/Training Program
DX: E21.3 Hyperparathyroidism, unspecified (principal)
CPT/HCPCS: 76775

== ENCOUNTER → 2024-07-19 12:50 | Outpatient (BNV) | payer MEDICARE, MEDICAID, SELFPAY | PROVIDERS: PCP Nurse Practitioner Family; Visit Provider Radiology Diagnostic Radiology | DX: E21.3 Hyperparathyroidism, unspecified (principal) | CPT/HCPCS: 76775 ==

== ENCOUNTER 2024-07-27 09:32 | Outpatient (REF) | payer MEDICARE, MEDICAID, SELFPAY ==
[2024-07-27 11:29] LABS: Parathyroid Hormone Intact 174.1 pg/mL (8.7-77.1)
[2024-07-27 11:40] LABS: Albumin Level 4.3 g/dL (3.5-5.0); Calcium 10.4 mg/dL (8.4-10.2); Phosphorus 2.4 mg/dL (2.7-4.5)
[2024-07-27 12:08] LABS: Vitamin D 25-OH Total 26.3 ng/mL (>30)
[2024-07-28 14:03] LABS: Calcium, Ionized 5.8 mg/dL (4.7-5.5)
== END 2024-07-27 09:33 | disposition home or self-care (01) ==
LOC: HO.10HDL 09:32
PROVIDERS: Visit Provider Student in an Organized Health Care Education/Training Program
DX: E21.3 Hyperparathyroidism, unspecified (principal)
CPT/HCPCS: 36415; 82040; 82306; 82310; 82330; 83970; 84100

== ENCOUNTER 2024-07-28 11:12 | Outpatient (REF) | payer MEDICARE, MEDICAID, SELFPAY ==
[2024-07-29 11:57] LABS: Creatinine, mg/dL 126.58
[2024-07-29 12:46] LABS: Creatinine, 24Hr Urine 1.4 G/Day (1.0-2.0); Total Volume 24 Hour Urine 1075 mL
[2024-08-02 17:59] LABS: Calcium, 24 Hr Urine 147 mg/24 h; Calcium/Creatinine Ratio 109 mg/g creat (30-210); Creatinine 24Hr Urine 1.35 g/24 h (0.50-2.15)
== END 2024-07-28 11:13 | disposition home or self-care (01) ==
LOC: HO.10HDLNP 11:12
PROVIDERS: Visit Provider Student in an Organized Health Care Education/Training Program
DX: E83.52 Hypercalcemia (principal)
CPT/HCPCS: 82340; 82570; 99212

== ENCOUNTER 2024-07-29 09:48 | Outpatient (AMB) | payer MEDICARE, MEDICAID, SELFPAY ==
--- NOTE | 2024-07-29 10:17 | A.OFFVIS_ITS ---
Vital Signs 07/29/24 10:18 Height 5 ft 5 in Weight 187 lb 6.287 oz BMI 31.2 BP 130/78 Blood Pressure Location Rt brachial Position Sitting Pulse 83 Pulse Source Pulse Oximeter Pulse Oximetry (%) 95 Oxygen Delivery Method Room Air Intake Visit Reasons: Hypercalcemia Intake Note: Patient present today for Hyperglycemia follow up visit. Wash House Supervisor Required: No Accompanied by: Self / Same As Patient Allergies ibuprofen [From MOTRIN] Allergy (Intermediate, Verified 07/29/24 10:19) RASH latex Allergy (Intermediate, Verified 07/29/24 10:19) Rash HPI Comments Details: 63-year-old male here today for follow up of PTH mediated hypercalcemia HPI from prior visit Noted to have high calcium at least dating back May 2021 since then caclium levels have been in the range of 11.1- 11.2. Most recent labs 03/08/24 showed calcium of 11.2 with albumin of 4.3, PTH 141, vitamin D 37, normal kidney function. Had a kidney stones many years ago, nothing recently in the last 15 years. No hematuria. No fractures. On Losartan- HCTZ 12.5 mg daily now since 2 years. Not on calcium supplements Takes vitamin D 1000 untis daily for the past 6 months Milk one serving every 2 weeks. 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 No family history of kidney stones or calcium problems. Interval history 04/29/24 Remains off HCTZ,. Stopped Last visit 03/15/2024 BP records 130s / 60 to 80s at home maintaing a log Currently taking vitamin D 1000 units daily Still not taking much calcium in diet Bone density 04/22/24 : normal 03/19/24 : labs showed total calcium improved to 10.1 with albumin of 4.2, corrected calcium would be 9.9, ionized calcium mildly elevated at 5.8, PTH elevated at 155.7, normal kidney function, vitamin-D level of 33.3, 24 hour urine calcium of 166 with calcium creatinine ratio of 103, fractional excretion of calcium 0.009 Feca : 0.009 03/19/24 Interval history 07/29/2024: Remains off hydrochlorothiazide, blood pressure log reviewed has systolics mostly in the 130s to 140s, some readings in the 150s to 160s as well. Diastol ics in the 80s to late 90s. Currently on vitamin D 1000 units daily Has started incorporating more calcium in diet about due servings per day 07/20/2024: Renal ultrasound did not show any nephrolithiasis, however did show a 2.9 cm mildly complex cyst in the left kidney 07/27/2024: Blood work showed calcium of 10.4 which is high, albumin of 4.3, corrected calcium would be 10.1, ionized calcium also mildly elevated at 5.8, phosphorus low at 2.4, vitamin-D 26.3, PTH of 174.1 Physical exam General: sitting comfortably in no acute distress HEENT: normocephalic/atraumatic, moist oral mucosa Neck: supple, symmetrical, no thyromegaly , no dorsocervical or supraclavicular fat pads Cardiac: normal heart sounds Pulm: normal breath sounds B/L, no added breath sounds Abd: not distended, no tenderness Extremities: no edema, no signs of myxedema Neuro: AAO x3, Speech: normal, no facial droop, moving all 4 extremities Laboratory Tests 05/17/21 07/14/23 10/24/23 12:03 10:50 11:19 Creatinine Estimated GFR Calcium 11.1 H 10.7 H 11.3 H Albumin 4.3 4.3 4.5 Angiotensin Convert Enz 25-OH Vitamin D Total 1,25 Dihydroxy Vit D 25-Hydroxy Vitamin D2 1,25 Dihydroxy Vit D2 25-Hydroxy Vitamin D3 1,25 Dihydroxy Vit D3 PTH Intact 03/02/24 03/08/24 09:46 09:40 Creatinine 1.02 1.01 Estimated GFR > 60 > 60 Calcium 11.1 H 11.2 H Albumin 4.3 4.3 Angiotensin Convert Enz 76.7 H 25-OH Vitamin D Total 26 L 37.3 1,25 Dihydroxy Vit D 36 25-Hydroxy Vitamin D2 <4 1,25 Dihydroxy Vit D2 <8 25-Hydroxy Vitamin D3 26 1,25 Dihydroxy Vit D3 36 PTH Intact 141.8 H Laboratory Tests 03/19/24 03/19/24 08:30 10:03 Creatinine 0.99 Estimated GFR > 60 Calcium 10.1 D Ionized Calcium 5.8 H Phosphorus 1.8 L Magnesium 2.2 Albumin 4.2 25-OH Vitamin D Total 33.3 PTH Intact 155.7 H Ur 24 Hour Volume 1300 Ur Creatinine mg/dL 134.50 Ur Creatinine 24 Hour 1.7 Ur Calcium 24 Hr 166 Calcium/Creat 24 Hr 103 Feca : 0.009 03/19/24 Laboratory Tests 03/19/24 07/27/24 08:30 09:40 Calcium 10.4 H Ionized Calcium 5.8 H Phosphorus 2.4 L Albumin 4.3 25-OH Vitamin D Total 26.3 L PTH Intact 174.1 H Ur 24 Hour Volume 1300 Ur Creatinine mg/dL 134.50 Ur Creatinine 24 Hour 1.7 Ur Calcium 24 Hr 166 Calcium/Creat 24 Hr 103 US Renal 07/20/24 Comparison: None Findings: Right kidney normal size and echotexture, 9.3 cm length. Left kidney normal size and echotexture, 10.0 cm length. 2.9 x 2.8 x 2.5 cm cyst containing a septation within the midportion of the left kidney. 1.7 cm simple cyst within the upper pole of the left kidney. No hydronephrosis of either kidney. Normal color Doppler IMPRESSION: 1. No acute abnormality of the kidneys. 2. 2.9 cm mildly complex cyst within the midportion of the left kidney. This document has been electronically signed by: Dolly Campbell MD on 07/20/2024 15:43:13 EXAMINATION: BONE DENSITOMETRY 04/22 CLINICAL INDICATION: Hypercalcemia. Hyperparathyroidism. COMPARISON: This is the patient's baseline examination. TECHNIQUE: Using a Nu[employer]ential DXA System (software version: 13.1) manufactured by [employer], dual-energy x-ray absorptiometry was performed of the lumbar spine, left hip and left forearm radius 33%. The images are of good technical quality. Summary results are attached. FINDINGS: LEFT FEMUR, NECK: BMD 1.143 g/cm2, Z-score 0.5, T-score 0.6, normal. LEFT FEMUR, TOTAL: BMD 1.348 g/cm2, Z-score 1.3, T-score 1.7, normal. AP SPINE L1-L4: BMD 1.253 g/cm2, Z-score -0.1, T-score 0.3, normal. LEFT FOREARM RADIUS 33%: BMD 1.065 g/cm2, Z-score 0.7, T-score 0.8, normal. IDENTIFIED RISK FACTORS: Rheumatoid arthritis, hyperparathyroidism, glucocorticoids. HISTORY OF FRACTURE: None listed. MEDICATIONS: Vitamin D. MM/XR DEXA appendicular skeleton IMPRESSION: 1. DIAGNOSIS: Normal bone density based on the lowest T-score value of 0.3 in the lumbar spine applying World Health Organization criteria. 2. 10-YEAR FRACTURE RISK PREDICTION, FRAX: According to the guidelines, FRAX calculation should only be performed on patients in the osteopenia bone density category. Therefore, FRAX was not performed on this patient. 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 Noted to have high calcium at least dating back May 2021 since then caclium levels have been in the range of 11.1- 11.2. I do not have any labs prior to that stating that he had normal calcium levels. labs 03/08/24 showed calcium of 11.2 with albumin of 4.3, PTH 141, vitamin D 37, normal kidney function.. Given normal kidney function, appropriate vitamin-D levels, with high calcium levels, all consistent with most likely differential primary hyperparathyroidism. 03/19/24 : labs showed total calcium improved to 10.1 with albumin of 4.2, corrected calcium would be 9.9, ionized calcium mildly elevated at 5.8, PTH elevated at 155.7, normal kidney function, vitamin-D level of 33.3, 24 hour urine calcium of 166 with calcium creatinine ratio of 103, fractional excretion of calcium 0.009. Feca : 0.009 03/19/24 could not rule out FHH. However I feel that calcium excretion in the urine is low likely due to poor calcium intake. His bone density scan from 04/22/2024 was also normal including the forearm. So far his only criteria for surgery that he has met as his degree of hypercalcemia with calcium of 11.2, however recently calcium levels have improved after stopping the hydrochlorothiazide on 03/15/2024. His most recent blood work from 07/28/2023 showed calcium levels have improved down to 10.4, with corrected calcium of 10.1. Phosphorus still mildly low. Vitamin-D most recently mildly low at 26. I have asked him to increase his vitamin-D intake to 2000 units daily as low vitamin-D levels can further worsen PTH elevation. He was asked to maintain good calcium intake in diet and repeat 24 hour urine labs, however he only handed this in yesterday so no results are in. I will follow up on these. Renal ultrasound did not show any nephrolithiasis however did show a mildly complex left kidney cyst. I have messaged Urology since he is already established with them to follow up on this as well as told him to discuss with his primary care further follow up is needed for this. He should continue to remain off hydrochlorothiazide. His most recent blood pressure log does show some elevated blood pressures in the 150s to 1-60 systolic and 80s to 90s diastolic. I have asked him to ask his primary care physician to add another blood pressure medication to his regimen apart from hydrochlorothiazide. Plan: -follow up on 24 hour urine calcium levels and calculate fractional excretion of calcium -increase vitamin-D to 2000 units daily -continue to incorporate 2-3 servings of calcium rich foods daily - ordered PTH, calcium, ionized calcium, , phosphorus, creatinine levels , vitamin-D levels to be done prior to next appointment -stay off hydrochlorothiazide -discuss blood pressure with primary care provider -follow up with primary care provider/urology regarding kidney cyst -follow up in 6 months with blood work prior to appointment (2) Hyperparathyroidism: Code(s): E21.3 - Hyperparathyroidism, unspecified Category: Medical Plan: see above Plan See above Orders: Orders Phosphorus 6 Months E21.3 - Hyperparathyroidism, unspecified, E83.52 - Hypercalcemia Parathyroid Hormone Intact 6 Months E21.3 - Hyperparathyroidism, unspecified, E83.52 - Hypercalcemia Vitamin D 25-OH Total 6 Months E21.3 - Hyperparathyroidism, unspecified, E83.52 - Hypercalcemia Albumin Level 6 Months E21.3 - Hyperparathyroidism, unspecified, E83.52 - Hypercalcemia Calcium 6 Months E21.3 - Hyperparathyroidism, unspecified, E83.52 - Hypercalcemia Calcium, Ionized 6 Months E21.3 - Hyperparathyroidism, unspecified, E83.52 - Hypercalcemia Basic Metabolic Panel 6 Months E21.3 - Hyperparathyroidism, unspecified, E83.52 - Hypercalcemia Medications: New cholecalciferol (vitamin D3) 50 mcg PO DAILY 1 month 30 caps 4RF Patient Instructions: Increase vitamin D to 2000 units daily Continue 2-3 servings of calcium rich foods daily Talk to primary care about adding another blood pressure medicine, anything except hydrochlorothiazide Talk to primary care about finding of complex kidney cyst on renal ultrasound We will wait for the results of the 24 hr urine to communicate further instructions Follow up in 6 months with blood work 2 weeks before Coding Level of Care Code Est Pt Level 3 (55123) Diagnoses Hypercalcemia E83.52 Hyperparathyroidism E21.3
[2024-07-29 10:18] VITALS: BP 130/78; PULSE 83; O2SAT 95; BMI 31.2
== END 2024-07-29 10:57 | disposition home or self-care (01) ==
LOC: HO.ENCR 09:48
PROVIDERS: PCP Internal Medicine; Visit Provider Student in an Organized Health Care Education/Training Program
DX: E21.3 Hyperparathyroidism, unspecified (principal)
CPT/HCPCS: 99213

== ENCOUNTER 2024-09-21 12:06 | Outpatient (REF) | payer MEDICARE, MEDICAID, SELFPAY ==
--- OUTSIDE RECORDS SUMMARY | 2024-09-21 13:15 | XMS_ITS | Clinical Summary ---
Author Organization [facility] Address [address] [place] [address] Phone Care Team Providers Care Cooky Machine Operator Name Role Phone Physician, Pcp Unknown Primary Care Provider Rupali vailable Allergies Active Allergy Reactions Criticality Noted Date Comments Adhesive 09/21/2024 Ibuprofen 10/30/2023 Latex Rash,Unknown Medium 02/01/2016 Stewart to skin Medications No known medications Encounters Date Type Department Care Team Description 09/21/2024 9:38 AM EDT - 09/21/2024 11:40 AM EDT Emergency [facility] Emergency [address] [place] [address] Lei Mario MD Chest pain, unspecified type (Primary Dx); Bradycardia Discharge Disposition: Home or Self Care from Last 3 Months Medical History Medical History Date Comments Hypertension Social History Tobacco Use Types Packs/Day Years Used Date Smoking Tobacco: Never Smokeless Tobacco: Never Tobacco Cessation:Counseling Given: Not Answered Alcohol Use Standard Drinks/Week Comments Never 0 (1 standard drink = 0.6 oz pur e alcohol) rarely Sex and Gender Information Value Date Recorded Sex Assigned at Not on file Legal Sex Male 8:12 PM EST Gender Identity Not on file Sexual Orientation Not on file Obstetrics History Last Filed Vital Signs Vital Sign Reading Time Taken Comments Blood Pressure 144/91 09/21/2024 11:17 AM EDT Pulse 46 09/21/2024 11:17 AM EDT Temperature 36.4 ??C (97.5 ??F) 09/21/2024 11:17 AM E DT Respiratory Rate 16 09/21/2024 11:17 AM EDT Oxygen Saturation 98% 09/21/2024 11:17 AM EDT Inhaled Oxygen Concentration - - Weight 86.2 kg (190 lb) 09/21/2024 7:41 AM EDT Height 167.6 cm (5' 6 ) 09/21/2024 7:41 AM EDT Body Mass Index 30.67 09/21/2024 7:41 AM EDT Plan of Treatment Health Maintenance Due Date Last Done Comments Pneumococcal Vaccine: 50+ Years (1 of 1 - PCV) 2009 Abdominal Aortic Aneurysm (AAA) Screen 06/03/2023 Colorectal Cancer Screening: Colonoscopy 06/03/2023 Depression Screening 06/03/2023 Hepatitis C Screening 06/03/2023 Social Influencers of Health Screening 06/03/2023 Hepatitis B Vaccines (2 of 3 - 19+ 3-dose series) 08/07/2023 07/10/2023 COVID-19 Vaccine (3 - 2023- season) 2024 07/17/2021, 09/25/2020, 09/04/2020 Falls Risk Assessment 2024 Influenza Vaccine (Season Ended) 2025 02/12/2021, 05/27/2019, 04/30/2018, Additional history exists DTaP,Tdap,and Td Vaccines (2 - Td or Tdap) 03/04/2026 03/04/2016 Cholesterol Screening (Lipid Panel) 07/13/2028 07/14/2023, 06/03/2019, 06/03/2019, Additional history exists RSV Immunization Adult Patients (1 - 1-dose 75+ series) 2034 Zoster Vaccines Completed 03/23/2021, 01/19/2021 HIB Vaccines Aged Out No longer eligi [...] age to complete this topic Meningococcal B Vaccine Aged Out No l onger eligible based on patient's age to complete this topic Pneumococcal Vaccine: Pediatrics (0 to 5 Years) and At-Risk Patients (6 to 64 Years) Aged Out No longer eligible based on patient's age to complete this topic RSV Immunization Patients Under 20 months Aged Out No longer eligible based on patient's age to complete this topic Varicella Vaccines Aged Out No longer eligible based on patient's age to complete this topic Procedures Procedure Name Priority Date/Time Associated Diagnosis Comments D-DIMER STAT 09/21/2024 10:25 AM EDT TROPONIN I HIGH SENSITIVITY STAT 09/21/2024 10:25 AM EDT ECG 12-LEAD STAT 09/21/2024 9:54 AM EDT CBC WITH AUTO DIFFERENTIAL STAT 09/21/2024 7:48 AM EDT B-TYPE NATRIURETIC PEPTIDE STAT 09/21/2024 7:48 AM EDT MAGNESIUM STAT 09/21/2024 7:48 AM EDT LIPASE STAT 09/21/2024 7:48 AM EDT COMPREHENSIVE METABOLIC PANEL STAT 09/21/2024 7:48 AM EDT CBC AND DIFFERENTIAL STAT 09/21/2024 7:48 AM EDT TROPONIN I HIGH SENSITIVITY STAT 09/21/2024 7:48 AM EDT ECG 12-LEAD STAT 09/21/2024 7:36 AM EDT from Last 3 Months Results * Troponin I high sensitivity (09/21/2024 10:25 AM EDT) Only the most recent of2 resultswithin the time period is included. High Sensitivity Troponin I 8 <=79 ng/L LAB CHEMISTRY METHOD 09/21/2024 11:14 AM EDT [facility] Blood Venous blood specimen / Unknown Venipuncture / Unknown 09/21/2024 10:25 AM EDT 09/21/2024 10:42 AM EDT [facility] - 09/21/2024 11:14 AM EDT High levels of biotin in samples may falsely decrease hsTroponin values. ??Use caution when interpreting hsTroponin results in patients taking biotin who exhibit renal impairment (eGFR <60) or in patients taking more than 20 mg/day of biotin. Lei Mario MD LAB BLOOD ORDERABLES Final Result Performing Organization Address [facility] Co de Phone Number [facility] [address] [place] [address], [place] [phone] * D-dimer, quantitative (09/21/2024 10:25 AM EDT) Pathologist [facility] D-Dimer, Quant (D-DU) <150 <=230 ng/mL DDU LAB COAGULATION METHOD 09/21/2024 11:11 AM EDT [facility] Blood Venous blood specimen / Unknown Venipuncture / Unknown 09/21/2024 10:25 AM EDT 09/21/2024 10:42 AM EDT [facility] - 09/21/2024 11:11 AM EDT D-Dimer <230 ng/mL (D-Dimer units) is the threshold for exclusion of DVT/PE. D-Dimer may be elevated in: Critically ill, severely infected, trauma patients, DIC, acute CVA, acute [place], unstable angina, AF, old age, , and smoking. D-Dimer may be decreased with: Initiation of heparin therapy and oral anticoagulants. us Lei Mario MD LAB BLOOD ORDERABLES Final Result Performing Organization Address [facility]/ZIP Co de Phone Number [facility] [address] [place] [address], [place] [phone] * (ABNORMAL) CBC auto differential (09/21/2024 7:48 AM EDT) WBC 5.5 4.8 - 10.8 K/mcL LAB HEMETOLOGY METHOD 09/21/2024 8:21 AM [facility] RBC 4.30(L) 4.50 - 5.50 M/mcL LAB HEMETOLOGY METHOD 09/21/2024 8:21 AM [facility] Hemoglobin 12.5(L) 13.5 - 17.5 g/dL LAB HEMETOLOGY METHOD 09/21/2024 8:21 AM [facility] Hematocrit 40.6(L) 42.0 - 54.0 % LAB HEMETOLOGY METHOD 09/21/2024 8:21 AM [facility] MCV 93.8 79.0 - 98.0 FL LAB HEMETOLOGY METHOD 09/21/2024 8:21 AM [facility] MCH 28.9 27.0 - 32.0 pcg LAB HEMETOLOGY METHOD 09/21/2024 8:21 AM [facility] MCHC 30.8(L) 32.0 - 37.0 g/dL LAB HEMETOLOGY METHOD 09/21/2024 8:21 AM [facility] RDW 12.9 11.0 - 15.0 % LAB HEMETOLOGY METHOD 09/21/2024 8:21 AM [facility] Platelets 230 130 - 400 K/mcL LAB HEMETOLOGY METHOD 09/21/2024 8:21 AM [facility] MPV 10.5 7.0 - 11.0 FL LAB HEMETOLOGY METHOD 09/21/2024 8:21 AM [facility] NRBC 0.0 <1.0 % LAB HEMETOLOGY METHOD 09/21/2024 8:21 AM [facility] NRBC Absolute 0.00 <0.10 K/mcL LAB HEMETOLOGY METHOD 09/21/2024 8:21 AM [facility] Neutrophils Relative 51.1 % LAB HEMETOLOGY METHOD 09/21/2024 8:21 AM [facility] Lymphocytes Relative 36.5 % LAB HEMETOLOGY METHOD 09/21/2024 8:21 AM [facility] Monocytes Relative 8.1 % LAB HEMETOLOGY METHOD 09/21/2024 8:21 AM [facility] Eosinophils Relative 3.4 % LAB HEMETOLOGY METHOD 09/21/2024 8:21 AM [facility] Basophils Relative 0.5 % LAB HEMETOLOGY METHOD 09/21/2024 8:21 AM [facility] Immature Granulocytes Relative 0.4 % LAB HEMETOLOGY METHOD 09/21/2024 8:21 AM [facility] Neutrophils Absolute 2.83 1.50 - 7.00 K/mcL LAB HEMETOLOGY METHOD 09/21/2024 8:21 AM [facility] Lymphocytes Absolute 2.02 1.00 - 5.00 K/mcL LAB HEMETOLOGY METHOD 09/21/2024 8:21 AM [facility] Monocytes Absolute 0.45 0.20 - 1.00 K/mcL LAB HEMETOLOGY METHOD 09/21/2024 8:21 AM [facility] Eosinophils Absolute 0.19 0.00 - 0.50 K/mcL LAB HEMETOLOGY METHOD 09/21/2024 8:21 AM [facility] Basophils Absolute 0.03 0.00 - 0.20 K/mcL LAB HEMETOLOGY METHOD 09/21/2024 8:21 AM [facility] Immature Granulocytes Absolute 0.02 0.00 - 0.03 K/mcL LAB HEMETOLOGY METHOD 09/21/2024 8:21 AM [facility] Blood Venous blood specimen / Unknown Venipuncture / Unknown 09/21/2024 7:48 AM EDT 09/21/2024 8:14 AM EDT Lei Mario MD LAB BLOOD ORDERABLES Final Result Performing Organization Address [facility]/ZIP Co de Phone Number [facility] [address] [place] [address], [place] [phone] * B-type natriuretic peptide (09/21/2024 7:48 AM EDT) BNP 27 <=100 pcg/mL LAB CHEMISTRY METHOD 09/21/2024 8:54 AM EDT [facility] Blood Venous blood specimen / Unknown Venipuncture / Unknown 09/21/2024 7:48 AM EDT 09/21/2024 8:14 AM EDT Lei Mario MD LAB BLOOD ORDERABLES Final Result Performing Organization Address [facility] de Phone Number [facility] [address] [place] [address], [place] [phone] * Magnesium (09/21/2024 7:48 AM EDT) [facility] Magnesium 2.2 1.9 - 2.6 mg/dL LAB CHEMISTRY METHOD 09/21/2024 8:46 AM EDT [facility] Blood Venous blood specimen / Unknown Venipuncture / Unknown 09/21/2024 7:48 AM EDT 09/21/2024 8:14 AM EDT Lei Mario MD LAB BLOOD ORDERABLES Final Result Performing Organization Address [facility] Co de Phone Number [facility] [address] [place] [address], [place] [phone] * Lipase (09/21/2024 7:48 AM EDT) Lipase 28 13 - 75 unit/L LAB CHEMISTRY METHOD 09/21/2024 8:46 AM EDT [facility] Blood Venous blood specimen / Unknown Venipuncture / Unknown 09/21/2024 7:48 AM EDT 09/21/2024 8:14 AM EDT us Lei Mario MD LAB BLOOD ORDERABLES Final Result [facility] [address] [place] [address], * (ABNORMAL) Comprehensive metabolic panel (09/21/2024 7:48 AM EDT) Sodium 136 133 - 145 mmol/L LAB CHEMISTRY METHOD 09/21/2024 8:46 AM [facility] Potassium 3.9 3.5 - 5.5 mmol/L LAB CHEMISTRY METHOD 09/21/2024 8:46 AM [facility] Chloride 106 96 - 110 mmol/L LAB CHEMISTRY METHOD 09/21/2024 8:46 AM [facility] CO2 24 21 - 32 mmol/L LAB CHEMISTRY METHOD 09/21/2024 8:46 AM [facility] Anion Gap 6 3 - 11 LAB CHEMISTRY METHOD 09/21/2024 8:46 AM [facility] Glucose 118(H) 70 - 100 mg/dL LAB CHEMISTRY METHOD 09/21/2024 8:46 AM [facility] BUN 17 5 - 25 mg/dL LAB CHEMISTRY METHOD 09/21/2024 8:46 AM [facility] Creatinine 1.10 0.70 - 1.30 mg/dL LAB CHEMISTRY METHOD 09/21/2024 8:46 AM [facility] eGFR 74 >=60 mL/min/1. 73m2 LAB CHEMISTRY METHOD 09/21/2024 8:46 AM [facility] Comment:Calculation based on the Chronic Kidney Disease Epidemiology Collaboration (CKD-EPI) equation refit without adjustment for race. BUN/Creatinine Ratio 15.5 LAB CHEMISTRY METHOD 09/21/2024 8:46 AM [facility] Calcium 11.2(H) 8.5 - 10.5 mg/dL LAB CHEMISTRY METHOD 09/21/2024 8:46 AM [facility] AST (SGOT) 29 10 - 42 unit/L LAB CHEMISTRY METHOD 09/21/2024 8:46 AM [facility] ALT (SGPT) 31 10 - 60 unit/L LAB CHEMISTRY METHOD 09/21/2024 8:46 AM [facility] Alkaline Phosphatase 107 42 - 121 unit/L LAB CHEMISTRY METHOD 09/21/2024 8:46 AM [facility] Total Protein 8.3(H) 6.0 - 8.0 g/dL LAB CHEMISTRY METHOD 09/21/2024 8:46 AM [facility] Albumin 4.6 3.2 - 5.0 g/dL LAB CHEMISTRY METHOD 09/21/2024 8:46 AM [facility] Total Bilirubin 0.4 0.0 - 1.4 mg/dL LAB CHEMISTRY METHOD 09/21/2024 8:46 AM [facility] Blood Venous blood specimen / Unknown Venipuncture / Unknown 09/21/2024 7:48 AM EDT 09/21/2024 8:14 AM EDT us Lei Mario MD LAB BLOOD ORDERABLES Final Result [facility] [address] [place] [address], from Last 3 Months Insurance MEDICARE MEDICAID - [place] Care Teams Cooky Machine Operator Relationship Specialty Start Date End Date Physician, Pcp Unknown PCP - General 09/21/24
--- OUTSIDE RECORDS SUMMARY | 2024-09-21 13:15 | XMS_ITS | Encounter Summary ---
Author Organization [employer] Address [address] [place] [address] Care Team Providers Care Umbrella Cutter Name Role Phone Citlali Tee NP Primary Care Provider [phone] Reason for Visit * Reason Comments Med Refill Encounter Details Date Type Department Care Team (Late st Contact Info) Description 05/23/2024 Refill [facility] [address], [place] [phone] Citlali Tee NP [address], [place] [phone] Essential hypertension; Primary hypertension; Other hyperlipidemia Social [...] as of this encounter Plan of Treatment Not on file documented as of this encounter Visit Diagnoses Diagnosis Essential hypertension Unspecified essential hypertension Primary hypertension Unspecified essential hypertension Other hyperlipidemia documented in this encounter Additional Health Concerns Assessment Noted Time PHQ-9 Depression Total Score: 0 07/28/19 11:03 AM EDT documented as of this encounter Care Teams Umbrella Cutter Relationship Specialty Start Date End Date Citlali Tee NP [address] [place] [phone] PCP - General Family Medicine 07/14/23 documented as of this encounter
--- OUTSIDE RECORDS SUMMARY | 2024-09-21 13:15 | XMS_ITS | Encounter Summary ---
Author Organization [facility] Address [id number] [place] [id number] Care Team Providers Care Stripper And Printer Name Role Phone Physician, Pcp Unknown Primary Care Provider Rupali vailable Reason for Visit * Reason Comments Chest Pain Encounter Details Date Type Department Care Team (Late st Contact Info) Description 09/21/2024 9:38 AM EDT - 09/21/2024 11:40 AM EDT Emergency [facility] Emergency [address] [place] [phone] Lei Mario MD [address] [address] Chest pain, unspecified type (Primary Dx); Bradycardia Discharge Disposition: Home or Self Care Social History Tobacco Use Types Packs/Day Years [...] on file Sexual Orientation Not on file documented as of this encounter Last Filed Vital Signs Vital Sign Reading [...] Mass Index 30.67 09/21/2024 7:41 AM EDT documented in this encounter Discharge Disposition Disposition Code Departure Means Destination Comment s Home or Self Care documented in this encounter Progress Notes * Alicia Feldman RN - 09/21/2024 7:38 AM EDT For the past few days complaints of stabbing pain to left side of chest. Reports pressure under armpit. Reports pain is intermittent and feels erratic. Short of breath with going up stairs. Feels tired. Denies nausea or vomiting. documented in this encounter Plan of Treatment Pending Results Name Type Priority Associated Diagnoses Date /Time ECG 12 lead ECG STAT 09/21/2024 7: 36 AM EDT ECG 12 lead ECG STAT 09/21/2024 9: 54 AM EDT XR Chest 2 Views Imaging STAT 09/22/19 11:05 AM EDT Scheduled Orders Name Type Priority Associated Diagnoses Orde r Schedule XR Chest 2 Views Imaging STAT Once for 1 Occurrences starting 09/21/2024 until 09/21/2024 documented as of this encounter Procedures Procedure Name Priority Date/Time Associated Diagnosis Comments TROPONIN I HIGH SENSITIVITY STAT 09/21/2024 10:25 AM EDT D-DIMER STAT 09/21/2024 10:25 AM EDT ECG 12-LEAD STAT 09/21/2024 9:54 AM EDT TROPONIN I HIGH SENSITIVITY STAT 09/21/2024 7:48 AM EDT CBC WITH AUTO DIFFERENTIAL STAT 09/21/2024 7:48 AM EDT CBC AND DIFFERENTIAL STAT 09/21/2024 7:48 AM EDT B-TYPE NATRIURETIC PEPTIDE STAT 09/21/2024 7:48 AM EDT MAGNESIUM STAT 09/21/2024 7:48 AM EDT LIPASE STAT 09/21/2024 7:48 AM EDT COMPREHENSIVE METABOLIC PANEL STAT 09/21/2024 7:48 AM EDT ECG 12-LEAD STAT 09/21/2024 7:36 AM EDT documented in this encounter Results * D-dimer, quantitative (09/21/2024 10:25 AM EDT) [facility] D-Dimer, Quant (D-DU) <150 <=230 ng/mL DDU LAB COAGULATION METHOD 09/21/2024 11:11 AM EDT [facility] Blood Venous blood specimen / Unknown Venipuncture / Unknown 09/21/2024 10:25 AM EDT 09/21/2024 10:42 AM EDT Narrative [facility] - 09/21/2024 11:11 AM EDT D-Dimer <230 ng/mL (D-Dimer units) is the threshold for exclusion of DVT/PE. D-Dimer may be elevated in: Critically ill, severely infected, trauma patients, DIC, acute CVA, acute CT, unstable angina, AF, old age, , and smoking. D-Dimer may be decreased with: Initiation of heparin therapy and oral anticoagulants. us Lei Mario MD LAB BLOOD ORDERABLES Final Result [facility] [address] [place] [address], * Troponin I high sensitivity (09/21/2024 10:25 AM EDT) [facility] High Sensitivity Troponin I 8 <=79 ng/L LAB CHEMISTRY METHOD 09/21/2024 11:14 AM EDT [facility] Blood Venous blood specimen / Unknown Venipuncture / Unknown 09/21/2024 10:25 AM EDT 09/21/2024 10:42 AM EDT Narrative [facility] - 09/21/2024 11:14 AM EDT High levels of biotin in samples may falsely decrease hsTroponin values. ??Use caution when interpreting hsTroponin results in patients taking biotin who exhibit renal impairment (eGFR <60) or in patients taking more than 20 mg/day of biotin. us Lei Mario MD LAB BLOOD ORDERABLES Final Result [facility] [address] [place] [address], * (ABNORMAL) CBC auto differential (09/21/2024 7:48 AM EDT) WBC 5.5 4.8 - 10.8 K/mcL LAB HEMETOLOGY METHOD 09/21/2024 8:21 AM EDT [facility] RBC 4.30(L) 4.50 - 5.50 M/mcL LAB HEMETOLOGY METHOD 09/21/2024 8:21 AM EDT [facility] Hemoglobin 12.5(L) 13.5 - 17.5 g/dL LAB HEMETOLOGY METHOD 09/21[facility]24 [facility] Hematocrit 40.6(L) 42.0 - 54.0 % LAB HEMETOLOGY METHOD 09/21/2024 8:21 AM EDT [facility] MCV 93.8 79.0 - 98.0 FL LAB HEMETOLOGY METHOD 09/21/2024 8:21 AM EDT [facility] MCH 28.9 27.0 - 32.0 pcg LAB HEMETOLOGY METHOD 09/21/2024 8:21 AM [facility] MCHC 30.8(L) 32.0 - 37.0 g/dL LAB HEMETOLOGY METHOD 09/21/2024 8:[facility] RDW 12.9 11.0 - 15.0 % LAB HEMETOLOGY METHOD 09/21/2024 8:21 AM [facility] Platelets 230 130 - 400 K/mcL LAB HEMETOLOGY METHOD 09/21/2024 8:21 AM [facility] MPV 10.5 7.0 - 11.0 FL LAB HEMETOLOGY METHOD 09/21/2024 8:21 AM [facility] NRBC 0.0 <1.0 % LAB HEMETOLOGY METHOD 09/21/2024 8:21 AM [facility] NRBC Absolute 0.00 <0.10 K/mcL LAB HEMETOLOGY METHOD 09/21/2024 8:21 AM [facility] Neutrophils Relative 51.1 % LAB HEMETOLOGY METHOD 09/21/2024 8:21 AM [facility] Lymphocytes Relative 36.5 % LAB HEMETOLOGY METHOD 09/21/2024 8:21 AM [facility] Monocytes Relative 8.1 % LAB HEMETOLOGY METHOD 09/21/2024 8:21 AM [facility] Eosinophils Relative 3.4 % LAB HEMETOLOGY METHOD 09/21/2024 8:21 AM [facility] Basophils Relative 0.5 % LAB HEMETOLOGY METHOD 09/21/2024 8:21 AM [facility] Immature Granulocytes Relative 0.4 % LAB HEMETOLOGY METHOD 09/21/2024 8:21 AM [facility] Neutrophils Absolute 2.83 1.50 - 7.00 K/mcL LAB HEMETOLOGY METHOD 09/21/2024 8:21 AM [facility] Lymphocytes Absolute 2.02 1.00 - 5.00 K/mcL LAB HEMETOLOGY METHOD 09/21/2024 8:21 AM [facility] Monocytes Absolute 0.45 0.20 - 1.00 K/mcL LAB HEMETOLOGY METHOD 09/21/2024 8:21 AM EDT [facility] Eosinophils Absolute 0.19 0.00 - 0.50 K/[facility] LAB HEMETOLOGY METHOD 09/21/2024 8:21 AM EDT [facility] Basophils Absolute 0.03 0.00 - 0.20 K/[facility] LAB HEMETOLOGY METHOD 09/21/2024 8:21 AM EDT [facility] Immature Granulocytes Absolute 0.02 0.00 - 0.03 K/[facility] LAB HEMETOLOGY METHOD 09/21/2024 8:21 AM EDT [facility] Blood Venous blood specimen / Unknown Venipuncture / Unknown 09/21/2024 7:48 AM EDT 09/21/2024 8:14 AM EDT Lei Mario MD LAB BLOOD ORDERABLES Final Result Performing Organization Address City/[facility]/ZIP Co de Phone Number [facility] [address] [place] [address], [place] [phone] * B-type natriuretic peptide (09/21/2024 7:48 AM EDT) Pathologist [facility] BNP 27 <=100 pcg/mL LAB CHEMISTRY METHOD 09/21/2024 8:54 AM EDT [facility] Blood Venous blood specimen / Unknown Venipuncture / Unknown 09/21/2024 7:48 AM EDT 09/21/2024 8:14 AM EDT Lei Mario MD LAB BLOOD ORDERABLES Final Result [facility] [address] [place] [address], [place] [phone] * Magnesium (09/21/2024 7:48 AM EDT) Magnesium 2.2 1.9 - 2.6 mg/dL LAB CHEMISTRY METHOD 09/21/2024 8:46 AM EDT [facility] Blood Venous blood specimen / Unknown Venipuncture / Unknown 09/21/2024 7:48 AM EDT 09/21/2024 8:14 AM EDT Lei Mario MD LAB BLOOD ORDERABLES Final Result Performing Organization Address [facility]/ZIP Co de Phone Number [facility] [address] [place] [address], [place] [phone] * Lipase (09/21/2024 7:48 AM EDT) [facility] Lipase 28 13 - 75 unit/L LAB CHEMISTRY METHOD 09/21/2024 8:46 AM EDT [facility] Blood Venous blood specimen / Unknown Venipuncture / Unknown 09/21/2024 7:48 AM EDT 09/21/2024 8:14 AM EDT Lei Mario MD LAB BLOOD ORDERABLES Final Result Performing Organization Address [facility] de Phone Number [facility] [address] [place] [address], [place] [phone] * (ABNORMAL) Comprehensive metabolic panel (09/21/2024 7:48 AM EDT) [facility] Sodium 136 133 - 145 mmol/L LAB CHEMISTRY METHOD 09/21/2024 8:46 AM EDT [facility] Potassium 3.9 3.5 - 5.5 mmol/L LAB CHEMISTRY METHOD 09/21/2024 8:46 AM EDT [facility] Chloride 106 96 - 110 mmol/L LAB CHEMISTRY METHOD 09/21/2024 8:46 AM EDT [facility] CO2 24 21 - 32 mmol/L LAB CHEMISTRY METHOD 09/21/2024 8:46 AM EDT [facility] Anion Gap 6 3 - 11 LAB CHEMISTRY METHOD 09/21/2024 8:46 AM [facility] Glucose 118(H) 70 - 100 mg/dL LAB CHEMISTRY METHOD 09/21/2024 8:46 AM [facility] BUN 17 5 - 25 mg/dL LAB CHEMISTRY METHOD 09/21/2024 8:46 AM [facility] Creatinine 1.10 0.70 - 1.30 mg/dL LAB CHEMISTRY METHOD 09/21/2024 8:46 AM [facility] eGFR 74 >=60 mL/min/1. 73m2 LAB CHEMISTRY METHOD 09/21/2024 8:46 AM [facility] Comment:Calculation based on the Chronic Kidney Disease Epidemiology Collaboration (CKD-EPI) equation refit without adjustment for race. BUN/Creatinine Ratio 15.5 LAB CHEMISTRY METHOD 09/21/2024 8:46 AM [facility] Calcium 11.2(H) 8.5 - 10.5 mg/dL LAB CHEMISTRY METHOD 09/21/2024 8:46 AM [facility] AST (SGOT) 29 10 - 42 unit/L LAB CHEMISTRY METHOD 09/21/2024 8:46 AM [facility] ALT (SGPT) 31 10 - 60 unit/L LAB CHEMISTRY METHOD 09/21/2024 8:46 AM [facility] Alkaline Phosphatase 107 42 - 121 unit/L LAB CHEMISTRY METHOD 09/21/2024 8:46 AM [facility] Total Protein 8.3(H) 6.0 - 8.0 g/dL LAB CHEMISTRY METHOD 09/21/2024 8:46 AM [facility] Albumin 4.6 3.2 - 5.0 g/dL LAB CHEMISTRY METHOD 09/21/2024 8:46 AM [facility] Total Bilirubin 0.4 0.0 - 1.4 mg/dL LAB CHEMISTRY METHOD 09/21/2024 8:46 AM EDT [facility] Blood Venous blood specimen / Unknown Venipuncture / Unknown 09/21/2024 7:48 AM EDT 09/21/2024 8:14 AM EDT eLi Mario MD LAB BLOOD ORDERABLES Final Result Performing Organization Address [facility]/ZIP Co de Phone Number [facility] [address] [place] [address], [place] [phone] * Troponin I high sensitivity (09/21/2024 7:48 AM EDT) [facility] High Sensitivity Troponin I 11 <=79 ng/L LAB CHEMISTRY METHOD 09/21/2024 8:47 AM EDT [facility] Blood Venous blood specimen / Unknown Venipuncture / Unknown 09/21/2024 7:48 AM EDT 09/21/2024 8:14 AM EDT Narrative [facility] - 09/21/2024 8:47 AM EDT High levels of biotin in samples may falsely decrease hsTroponin values. ??Use caution when interpreting hsTroponin results in patients taking biotin who exhibit renal impairment (eGFR <60) or in patients taking more than 20 mg/day of biotin. Lei Mario MD LAB BLOOD ORDERABLES Final Result Performing Organization Address City/[facility]/ZIP Co de Phone Number [facility] [address] [place] [address], [place] [phone] documented in this encounter Visit Diagnoses Diagnosis Chest pain, unspecified type- Primary Bradycardia Other specified cardiac dysrhythmias documented in this encounter Care Teams Stripper And Printer Relationship Specialty Start Date End Date Physician, Pcp Unknown PCP - General 09/21/24 documented as of this encounter
--- OUTSIDE RECORDS SUMMARY | 2024-09-21 13:15 | XMS_ITS | Encounter Summary ---
Author Organization [employer] Address [address] [facility] [address] [place] [address] Care Team Providers Care Dye House Wheel Operator Name Role Phone Citlali Tee JANE Primary Care Provider [phone] Reason for Visit * Reason Comments Med Refill Encounter Details Date Type Department Care Team (Late st Contact Info) Description 08/08/[address] [facility] [address] [place], [place] [phone] Estelle Cain ANP [address] [place], [place] [phone] Essential hypertension; Primary hypertension Social History Tobacco [...] documented as of this encounter Care Teams Dye House Wheel Operator Relationship Specialty Start Date End Date Citlali Tee NP [address] [place] [address] PCP - General Family Medicine 07/14/23 documented as of this encounter
--- OUTSIDE RECORDS SUMMARY | 2024-09-21 13:15 | XMS_ITS | Encounter Summary ---
Author Organization [employer] Address [address] [facility] [address] [place] [address] Care Team Providers Care Quantitative Analyst Name Role Phone Citlali Tee JANE Primary Care Provider [phone] Reason for Visit * Reason Onset Date Comments Med Refill 09/06/2024 Encounter Details Date Type Department Care Team ([facility] st Contact Info) Description 09/06/2024 Refill [facility] [address] [place], [place] [phone] Name, MD Ayden [address] [place] [address] Other hyperlipidemia Social History Tobacco Use Types [...] your housing situation today? I have yoseph belén 08/10/[address] you li ve. Do you have problems with any of the following? Mold 08/10/2024 Food Insecurity Answer Date Recorded Within the past 12 months, y ou worried that your food would run out before you got money to buy more: Never True 08/10/2024 Within the past 12 months,th e food you bought just didn't last and you didn't have enough money to get more: Never True 12/2024 Transportation Answer Date Recorded In the past 12 months, has l ack of transportation kept you from medical appts, meetings, work or from getting things needed for daily living? No 08/10/2024 Utilities Answer Date Recorded In the past 12 months, has t he electric, gas, oil or water company threatened to shut off services in your home? No 08/10/2024 Depression Answer Date Recorded Patient Health Questionnaire-2 Score 0 07/28/2023 Internet Access Answer Date Recorded Internet Access Q1 Yes 08/10/2024 Internet Access Q2 Not on file 08/10/2024 Sex and Gender Information Value Date Recorded Sex Assigned at Male 03/04/2022 10:38 AM EDT Legal Sex Male 10:38 AM EDT Gender Identity Male 03/04/2022 10:38 AM EDT Sexual Orientation Don't know 03/04/2022 10 :38 AM EDT documented as of this encounter Plan of Treatment Not on file documented as of this encounter Visit Diagnoses Diagnosis Other hyperlipidemia documented in this encounter Additional Health Concerns Assessment Noted Time PHQ-9 Depression Total Score: 0 07/28/19 24 11:03 AM EDT documented as of this encounter Care Teams Quantitative Analyst Relationship Specialty Start Date End Date Citlali Tee NP [address] [place] [id number] PCP - General Family Medicine 07/14/23 documented as of this encounter
--- OUTSIDE RECORDS SUMMARY | 2024-09-21 13:15 | XMS_ITS | Encounter Summary ---
Author Organization [employer] Address [address] [facility] [address] [place] [address] Care Team Providers Care Biometrics Technician Name Role Phone Estelle Cain GINI Primary Care Provider [phone] Citlali Tee WELDER PIPE MAKING Primary Care Provider [phone] Encounter Details Date Type Department Care Team (Late st Contact Info) Description 04/16/2023 Orders Only [facility] [address] [place] [address] Susan Pimentel LPN Social History Tobacco Use [...] on file documented as of this encounter Procedures Procedure [...] FACTOR Routine 10/24/2023 11: 19 AM EDT [id number] G ENZYME Routine 10/24/2023 11:19 AM EDT [...] IMMUNOGLOBULIN G 1340 600 - 1540 mg/dL [facility] IMMUNOGLOBULIN A 233 70 - 320 mg/dL [facility] Immunoglobulin M 84 50 - 300 mg/dL [facility] Comment:THIS TEST WAS PERFOR MED AT:[email or web address] [place] [phone] BLANCHARD MD Immunofixation Result SEE NOTE [facility] Comment:Normal pattern. No m onoclonal proteins detected. 10/24/2023 11:1 9 AM EDT 10/24/2023 11:19 AM EDT us Generic External Data Provider LAB BLOOD ORDERAB LES Final Result [facility] [address] [place] [phone] * (ABNORMAL) Angiotensin -1- Converting Enzyme (10/24/2023 11:19 AM EDT) Pathologist [facility] Angiotensin Converting Enzyme 70(A) 9 - 67 U/L [facility] Comment:THIS TEST WAS PERFOR MED AT:[email or web address] [place] [address]RBQGIRNTYLER DU MD,PHD 10/24/2023 11:1 9 AM EDT 10/24/2023 11:19 AM EDT us Generic External Data Provider LAB BLOOD ORDERAB LES Final Result [facility] [address] [place] [phone] * (ABNORMAL) Protein Electrophoresis and [place]/[employer] (10/24/2023 11:19 AM EDT) Pathologist [facility] Prot Elec - Total Protein 8.2(A) 6.1 - 8.1 g/dL [facility] Prot Elec - Albumin 4.7 3.8 - 4.8 g/dL [facility] Prot Elec - Alpha1 0.3 0.2 - 0.3 g/dL [facility] Prot Elec - Alpha2 0.8 0.5 - 0.9 g/dL [facility] Prot Elec - Beta 1 0.6 0.4 - 0.6 g/dL [facility] Prot Elec - Beta 2 0.3 0.2 - 0.5 g/dL [facility] Prot Elec - Gamma 1.5 0.8 - 1.7 g/dL [facility] PES - Abn Protein Band 1 [facility] PES-Abn Protein Band 2 [facility] PES-Abn Protein Band 3 [facility] Prot Elec - Interpretation SEE NOTE [facility] Comment:Normal Serum Protein Electrophoresis Pattern.No abnormal protein bands (M-protein) detected.THIS TEST WAS PERFORMED AT:[email or web address] [place] [phone] BLANCHARD MD 10/24/2023 11:1 9 AM EDT 10/24/2023 11:19 AM EDT us Generic External Data Provider LAB BLOOD ORDERAB LES Final Result [facility] [address] [place] [address] [phone] * SHERYL Screen,IFA, with Reflex to Titer and Pattern (10/24/2023 11:19 AM EDT) Anti Nuclear Antibody Screen NEGATIVE NEGATIVE [facility] Comment:SHERYL IFA is a first l [...] clinicallysuspected inflammatory myopathies.AC-0: NegativeInternational Consensus on SHERYL Patterns(https://doi.org/10.1515/hltx-6069-9315)For additional information, please refer tohttp://education.[employer]./faq/OKJ651(This link is being provided for informational/educational purposes only.)THIS TEST WAS PERFORMED AT:[email or web address] [place] [phone] BLANCHARD MD SHERYL Titer TNP [facility] SHERYL Pattern TNP [facility] SHERYL TITER 2 (REF LAB) TNP [facility] SHERYL Pattern 2 TNP [facility] SH[facility]L TITER 3 [facility] SHERYL PATTERN 3 [facility] 10/24/2023 11:1 9 AM EDT 10/24/2023 11:19 AM EDT Generic External Data Provider LAB BLOOD ORDERAB LES Final Result Performing Organization Address [facility] Co de Phone Number [facility] [address] [place] [phone] * Cyclic Citrullinated Peptide (CCP) Antibody (IgG) (10/24/2023 11:19 AM EDT) Pathologist [facility] Cyclic Citrullinated Peptide <16 UNITS [facility] Comment:Reference RangeNegat travis: <20Weak Positive: 20-39Moderate Positive: 40-59Strong Positive: >59THIS TEST WAS PERFORMED AT:[email or web address] [place] [phone] BLANCHARD MD 10/24/2023 11:1 9 AM EDT 10/24/2023 11:19 AM EDT Generic External Data Provider LAB BLOOD ORDERAB LES Final Result Performing Organization Address [facility] de Phone Number [facility] [address] [place] [phone] * HIV-1/2 Antigen and Antibodies, Fourth Generation, with Reflexes (10/24/2023 11:19 AM EDT) [facility] HIV AB/AG Nonreactive Nonreactive [facility] Comment:HIV-1 p24 Ag and/or HIV-1/HIV-2 Ab not detected.A test result that is nonreactive does not exclude thepossibility of exposure to or infection with HIV-1 and/orHIV-2. Nonreactive results in this assay for individualswith prior exposure to HIV-1 and/or HIV-2 may be due toantigen and antibody levels that are below the limit ofdetection of this assay.The [employer] HIV Ag/Ab Combo assay result andsupplemental assay results should be interpreted inconjunction with the patient's clinical presentation,history and other laboratory results. If the results areinconsistent with clinical evidence, additional testing issuggested to confirm the result. 10/24/2023 11:1 9 AM EDT 10/24/2023 11:19 AM EDT Generic External Data Provider LAB BLOOD ORDERAB LES Final Result Performing Organization Address [facility] Co de Phone Number [facility] [address] [place] [phone] * Hepatitis Panel, General (10/24/2023 11:19 AM EDT) Pathologist [facility] Hepatitis A IgM Nonreactive Nonreactive [facility] Comment:IgM antibodies to PITTS V not detected; does not exclude earlyacute or recovered HAV infection. ~Hepatitis B Surface Antibody REACTIVE Nonreactive [facility] Comment:REACTIVE: > 11.99 mI U/mL Hepatitis B Core Antibody Reactive Nonreactive [facility] Comment:Presumptive evidence of anti-HBc. Hepatitis C Antibody Nonreactive Nonreactive [facility] Comment:Antibodies to HCV no t detected; does not exclude early acuteHCV infection. Hepatitis B Surface Ag Negative Negative [facility] 10/24/2023 11:1 9 AM EDT 10/24/2023 11:19 AM EDT Funnely External Data Provider LAB BLOOD ORDERAB LES Final Result Performing Organization Address [facility] de Phone Number [facility] [address] [place] [phone] * T-SPOT??.TB (10/24/2023 11:19 AM EDT) Pathologist [facility] T Spot TB Negative Negative [facility] Comment:A negative test resu lt does [...] as aquantitative test. TS PANEL A 0 [facility] TS PANEL B 0 [facility] Negative Control Passed [facility] Positive Control Passed [facility] Comment:For additional infor matumair, please refer tohttp://education.LINAGORA/faq/ZWV940(This link is being provided for informational/educational purposes only.)THIS TEST WAS PERFORMED AT:[employer] [id number] [place] [address]BSTAVJBTYLER DU MD,PHD 10/24/2023 11:1 9 AM EDT 10/24/2023 11:19 AM EDT us Generic External Data Provider LAB BLOOD ORDERAB LES Final Result Performing Organization Address City/[facility]/ZIP Co de Phone Number [facility] [address] [place] [phone] * Sed Rate by Modified Vikergren (10/24/2023 11:19 AM EDT) Erythrocyte Sedimentation Rate 7 0 - 15 MM/HR [facility] Comment:Patients with polycy themia and many hemoglobin abnormalitiesmay have depressed sed rates whereas patients with anemiamay have elevated sed rates. 10/24/2023 11:1 9 AM EDT 10/24/2023 11:19 AM EDT us Generic External Data Provider LAB BLOOD ORDERAB LES Final Result Performing Organization Address [facility]/ZIP Co de Phone Number [facility] [address] [place] [phone] * C-reactive Protein (10/24/2023 11:19 AM EDT) C Reactive Protein 0.16 < or = 0.50 mg/dL [facility] 10/24/2023 11:1 9 AM EDT 10/24/2023 11:19 AM EDT us Generic External Data Provider LAB BLOOD ORDERAB LES Final Result [facility] [address] [place] [phone] * (ABNORMAL) Comprehensive Metabolic Panel (10/24/2023 11:19 AM EDT) Sodium 140 135 - 145 mmol/L [facility] Potassium 3.7 3.3 - 5.1 mmol/L [facility] Chloride 107 96 - 108 mmol/L [facility] Carbon Dioxide 28 22 - 29 mmol/L [facility] Anion Gap 9(L) 12 - 20 [facility] Urea Nitrogen (BUN) 18(H) 9 - 16 mg/dL [facility] Creatinine, Serum 0.99 0.5 - 1.4 mg/dL [facility] Estimated Glomerular Filt Rate >60 [facility] Comment:NOTE: For -Am erican individuals, multiply the result by 1.210.Chronic Kidney Disease: Estimated GFR < 60 mL/min/1.28o6Yblqfl Kidney Disease: Estimated GFR < 15 mL/min/1.73m2 Glucose 105 60 - 115 mg/dL [facility] Calcium 11.3(H) 8.4 - 10.2 mg/dL [facility] Bilirubin, Total 0.5 0.0 - 1.0 mg/dL [facility] Aspartate Amino Transferase 28 5 - 37 U/L [facility] Alanine Aminotransferase 22 0 - 40 U/L [facility] Total Protein 7.8 6.5 - 8.0 g/dL [facility] Albumin Level 4.5 3.5 - 5.0 g/dL [facility] Alkaline Phosphatase 74 39 - 117 U/L [facility] 10/24/2023 11:1 9 AM EDT 10/24/2023 11:19 AM EDT us Generic External Data Provider LAB BLOOD ORDERAB LES Final Result Performing Organization Address [facility] Co de Phone Number [facility] [address] [place] [phone] * Rheumatoid Factor (10/24/2023 11:19 AM EDT) Rheumatoid Factor <13.0 <15.0 IU/mL [facility] 10/24/2023 11:1 9 AM EDT 10/24/2023 11:19 AM EDT us Generic External Data Provider LAB BLOOD ORDERAB LES Final Result Performing Organization Address [facility] Co ct Phone Number [facility] [address] [place] [address] [phone] * Hemoglobin A1c (10/24/2023 11:19 AM [...] patient sample. Estimated Average Glucose 111 mg/dL [facility] Comment:eAG = Estimated ave rage glucose which is %A1C expressed asaverage glucose, using the formula of the N9I-VkkyhdvWefcfwv Glucose study (ADAG), Diabetes Care, Vol.31,#8,Dec. 2007 10/24/2023 11:1 9 AM EDT 10/24/2023 11:19 AM EDT us Generic External Data Provider LAB BLOOD ORDERAB LES Final Result Performing Organization Address [facility]/ZIP Co de Phone Number [facility] [address] [place] [phone] * (ABNORMAL) CBC auto differential (10/24/2023 11:19 AM EDT) White Blood Count 4.4(L) 4.8 - 10.8 X10*3/uL [facility] Red Blood Count 4.15(L) 4.60 - 5.80 X10*6/uL [facility] Hemoglobin 12.4(L) 14.0 - 18.0 g/dl [facility] Hematocrit 37.7(L) 42.0 - 52.0 % [facility] Mean Corpuscular Volume 90.8 80.0 - 98.0 fL [facility] Mean Corpuscular Hemoglobin 29.9 27.0 - 33.0 pg [facility] Mean Corpuscular HGB Conc 32.9 31.0 - 36.0 g/dl [facility] Red Cell Distribution Width 12.7 11.0 - 16.0 % [facility] Platelet Count 277 160 - 400 X10*3/uL [facility] Mean Platelet Volume 10.3 9.4 - 12.4 fL [facility] Neutrophils Percent Auto 50.4 45 - 73 % [facility] Imm Gran Pct Auto 0.5(H) 0.0 - 0.4 % [facility] Lymphocytes Percent Auto 33.9 20 - 40 % [facility] Monocytes Percent Auto 10.0 2 - 11 % [facility] Eosinophils Percent Auto 4.3(H) 0 - 4 % [facility] Basophils Percent Auto 0.9 0 - 2 % [facility] NRBC Pct Auto 0.0 0.0 - 0.2 /100WBC [facility] Neutrophils Absolute Auto 2.2 2.0 - 8.3 x10*3/uL [facility] Imm Gran Abs Auto 0.02 0.00 - 0.03 X10*3/uL [facility] Lymphocytes Absolute Auto 1.5 1.2 - 4.9 X10*3/uL [facility] Monocytes Absolute Auto 0.4 0.1 - 1.2 X10*3/uL [facility] Eosinophils Absolute Auto 0.2 0.0 - 0.4 X10*3/uL [facility] Basophils Absolute Auto 0.0 0.0 - 0.2 X10*3/uL [facility] NRBC Abs Auto 0.000 0.0 - 0.012 X10*3/uL [facility] 10/24/2023 11:1 9 AM EDT 10/24/2023 11:19 AM EDT us Generic External Data Provider LAB BLOOD ORDERAB LES Final Result Performing Organization Address City/State/[facility] Co de Phone Number [facility] [address] [place] [phone] documented in this encounter Visit Diagnoses Not on filedocumented in this encounter Care Teams Biometrics Technician Relationship Specialty Start Date End Date Estelle Cain ANP [address] [place] [address] PCP - General Family Medicine 12/26/21 07/13/23 Citlali Tee NP [address] [place] [address] PCP - General Family Medicine 07/14/23 documented as of this encounter
--- OUTSIDE RECORDS SUMMARY | 2024-09-21 13:15 | XMS_ITS | Clinical Summary ---
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 Overview (11/15/2016): Overview: Seeing [facility] Pre-employment examination 11/15/2016 History of colonoscopy 03/09/2016 Overview (11/15/2016): Overview: 2009 per previous PCP records Anemia 02/13/2016 Essential hypertension 02/13/2016 History of urinary stone 02/13/2016 Hyperlipidemia 02/13/2016 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 Immunizations Immunization Administration Dates Next Due Influenza Inactivated/Split Preservative Free IM 02/01/2016 Tdap 03/04/2016 Social History Tobacco Use Types Packs/Day Years Used Date Smoking Tobacco: Never Smokeless Tobacco: Never Alcohol Use Standard Drinks/Week Comments Yes 0 (1 standard drink = 0.6 oz pur e alcohol) rare beer Sex and Gender Information Value Date Recorded Sex Assigned at Not on file Legal Sex Male 8:46 AM EDT Gender Identity Not on file Sexual Orientation [...] age to complete this topic Care Teams Fulfillment Specialist Relationship Specialty Start Date End Date Pcp, No PCP - General General Medicine 11/13/16
--- OUTSIDE RECORDS SUMMARY | 2024-09-21 13:15 | XMS_ITS | Clinical Summary ---
Author Organization [facility] Address [address] [place] [address] Care Team Providers Care Bilingual School Psychologist Name Role Phone Americo Hu PA-C Primary Care Provider [phone] Source Comments PLEASE NOTE, if this patient [...] to Ortho H/O urinary stone 02/13/2016 05/27/2019 Encounters Date Type Department Care Team Description 09/15/2024 9:40 AM EDT Office Visit [facility] [address] [place] [phone] Donnell Howell RHD Encounter for dental examination (Primary Dx); Periodontal disease from Last 3 Months Immunizations Immunization Administration Dates Next Due Flu, Preservative Free [...] Sign Reading Time Taken Comments Blood Pressure 155/96 09/15/2024 10:05 AM EDT Pulse 66 09/15/2024 10:05 AM EDT Temperature 36.7 ??C (98.1 ??F) 05/27/2019 3:05 PM ES T Respiratory Rate 18 05/27/2019 3:05 PM EST Oxygen Saturation 100% 02/27/2017 8:43 AM EDT Inhaled Oxygen Concentration - - Weight 77.6 kg (171 lb 1.6 oz) 05/27/2019 3:05 P M EST Height 162.6 cm (5' 4 ) 05/27/2019 3:05 PM EST Body Mass Index 29.37 05/27/2019 3:05 PM EST Plan of Treatment Health Maintenance Due Date Last Done Comments Anxiety Screening [address] Colonography 2004 FIT/gFOBT 2004 Fecal DNA 2004 Flexible Sigmoidoscopy 2004 Imm-Pneumococcal 65+ (1 of 1 - PCV) 2009 Imm-Zoster, Recombinant (1 of 2) 2009 Annual Wellness (Adult): Ind icated (All Coverage) 05/27/2020 05/27/2019, 04/30/2018, 08/08/2016, Additional history exists [id number] (2023- season) 2024 07/17/2021, 09/25/2020, 09/04/2020 Imm-Influenza (#1) 2024 02/12/2021, 0 05/27/2019, 04/30/2018, Additional history exists Falls Prevention 2024 Alcohol and Drug Screen 05/05/2024 05/27/19 20, 04/30/2018, 04/30/2018, Additional history exists Depression Annual Screen 05/05/2024 05/27/2019, 1211/2017 Diabetes Screening 03/08/2025 03/08/2024, 05/08/2023, 03/08/2024, Additional history exists Dental BW 09/17/2025 09/15/2024, 03/05, 09/08/2023 Dental Examination 09/17/2025 09/15/2024, 1 05/16/2023, 09/08/2023 Dental Perio Charting 09/17/2025 09/15/2024, 024 Dental Prophy 09/17/2025 09/15/2024, 03/05, 09/08/2023 Imm-DTaP/Tdap/Td (2 - Td or Tdap) 03/04/2026 016 Colonoscopy 06/27/2026 06/27/2016 Colorectal Cancer Screening 06/27/2026 Lipid Screening 07/13/2026 07/14/2023, 05/07, 04/30/2018 Dental FMX/Pano 09/09/2028 09/08/2023 Hepatitis C Screening Completed 04/30/2018 HIV Screening Completed 10/24/2023, 10/04, 06/03/2019, Additional history exists Procedures Procedure Name Priority Date/Time Associated Diagnosis Comments PERIODIC ORAL EVALUATION ESTABLISHED PATIENT Routine 09/15/2024 9:40 AM EDT Encounter for dental examination DENTAL CASE MANAGEMENT - MOTIVATIONAL INTV Routine 09/15/2024 9:40 AM EDT Encounter for dental examination PROPHYLAXIS - ADULT Routine 09/15/2024 9 :40 AM EDT Encounter for dental examination COMP PERIODONTAL EVALUATION - NEW/EST PATIENT Routine 09/15/2024 9:40 AM EDT Encounter for dental examination BITEWINGS - FOUR RADIOGRAPHIC IMAGES Routine 09/15/2024 9:40 AM EDT Encounter for dental examination CARIES RISK ASSESSMENT & DOC FINDING HIGH RISK Routine 09/15/2024 9:40 AM EDT Encounter for dental examination NUTRITIONAL COUNSELING CONTROL OF DENTAL DISEASE Routine 09/15/2024 9:40 AM EDT Encounter for dental examination ORAL HYGIENE INSTRUCTIONS Routine 09/15/2024 9:40 AM EDT Encounter for dental examination ORAL CANCER SCREENING Routine 09/15/2024 9:40 AM EDT Encounter for dental examination CASE PRESENTATION SUBS DTL & EXTENSIVE TX PLN Routine 09/15/2024 9:40 AM EDT Encounter for dental examination INTRAORAL - COMP [...] HIV-2 ANTIBODIES (06/03/2019 9:45 AM EST) Pathologist [facility] HIV 1 AND 2 ANTIBODY SCREEN NEGATIVE NEGATIVE [facility] Comment: This assay is a 4th generation [...] 9:45 AM EST 06/03/2019 9:46 AM EST Narrative [facility] - 06/03/2019 12:50 PM EST [employer] [address] Hazardous Material Specialist - Dhara Flores MD [place] ID [id number] ORD# [id number] Mercedes RAMIREZ LAB - BLOOD DRAW Final Resu lt [employer] [address] [address], * HEMOGLOBIN, GLYCOSYLATED (A1C) (06/03/2019 9:45 AM EST) GLYCATED HEMOGLOBIN A1C 5.1 <6.5 % [facility] ESTIMATED AVERAGE GLUCOSE 100 mg/dL [facility] Blood specimen (specimen) Blood / Unknown 06/03/2019 9:45 AM EST 06/03/2019 9:46 AM EST Narrative [facility] - 06/03/2019 12:31 PM EST [employer] [address] Hazardous Material Specialist - Dhara Flores MD PT ID [id number] ORD# [id number] [facility] - BLOOD DRAW Final Resu lt Performing Organization Address City/[facility]/[place] [address], [place] [phone] * (ABNORMAL) LIPID PANEL (06/03/2019 9:44 AM EST) CHOLESTEROL 187 0 - 200 mg/dL [facility] TRIGLYCERIDES 73 0 - 150 mg/dL [facility] HDL CHOLESTEROL 58 >40 mg/dL [facility] LDL CALCULATED 115(H) 0 - 100 mg/dL [facility] TC-HDLC RATIO 3.2 0 - 4.4 mg/dL [facility] Blood specimen (specimen) Blood / Unknown 06/03/2019 9:44 AM EST 06/03/2019 9:46 AM EST Narrative [facility] - 06/03/2019 12:01 PM EST [employer], a member of [address] [address] Hazardous Material Specialist - Dhara Flores MD PT ID [id number] ORD# [id number] Mercedes RAMIRE[facility] LAB - BLOOD DRAW Final Resu lt Performing Organization Address City/[facility]/ZIP Co de Phone Number [address] [address], [place] [phone] * (ABNORMAL) hepatitis ABC panel future (04/30/2018 9:50 AM EST) HEPATITIS B SURFACE ANTIBODY POSITIVE(A) NEGATIVE [facility] HEPATITIS B SURFACE ANTIGEN NEGATIVE NEGATIVE [facility] Comment: Over the counter supplements containing high doses of biotin may interfere with this assay. ??If interference is suspected, patients shoud be retested after refraining from biotin supplements for 72 hours. HEPATITIS C VIRUS DIAGNOSTIC NEGATIVE NEGATIVE [facility] HEPATITIS A ANTIBODY TOTAL POSITIVE(A) NEGATIVE [facility] Comment: Over the counter supplements containing high doses of biotin may interfere with this assay. ??If interference is suspected, patients shoud be retested after refraining from biotin supplements for 72 hours. HEPATITIS B CORE ANTIBODY POSITIVE(A) NEGATIVE [facility] Blood specimen (specimen) Blood / Unknown 04/30/2018 9:50 AM EST 04/30/2018 11:36 AM EST Narrative [facility] [employer] [facility] - 04/30/2018 7:16 PM EST [employer] [address] Hazardous Material Specialist - Janell Pollack MD PT ID [id number] ORD# [id number] Clinton Hanson MD LAB - BLOOD DRAW [place] [address], from Last 3 Months or Most Recently Relevant to Health Maintenance Insurance [facility] ([facility]) Member Subscriber Plan / Payer (Ef fective 2019-Present) Name:Ag Gill Relation to Subscriber:Self Name:Ag Gill Payer ID:[id number] Group ID:Not on file Type:Indemnity Address: [address] [place] [address] [facility] [place] Care Teams Bilingual School Psychologist Relationship Specialty Start Date End Date Americo Hu PA-C [address] [place] [address] PCP - General 10/12/21
--- OUTSIDE RECORDS SUMMARY | 2024-09-21 13:15 | XMS_ITS | Clinical Summary ---
Author Organization [employer] Address [address] [facility] 7t [place] [address] Care Team Providers Care Airplane Cabin Attendant Name Role Phone Citlali Tee JANE Primary Care Provider [phone] Allergies Active Allergy Reactions Criticality Noted Date Comments Aspirin Unknown High 03/09/2016 Pt states stomach pain and stomach bleed when taking this medication. Ibuprofen 10/30/2023 Latex Unknown Medium 02/01/2016 Stewart to skin Medications amLODIPine (Norvasc) 10 MG tabletIndications :Essential hypertension,Prim symone hypertension TAKE 1 TABLET(10 MG) BY MOUTH IN THE MORNING 90 tablet 1 025 Active olmesartan (Benicar) 40 MG tablet Take 1 tablet (40 mg) by mouth Once per day. 90 tablet 3 025 2025 Active fluticasone (Flonase) 50 MCG/ACT nasal sprayIndications: Seasonal allergic rhinitis due to pollen Administer 1-2 sprays into each nostril Once per day. Shake gently. Before first use, prime pump. After use, clean tip and replace cap. 16 g 2 025 2025 Active atorvastatin (Lipitor) 10 MG tabletIndications :Other hyperlipidemia TAKE 1 TABLET BY MOUTH EVERY DAY FOR HIGH CHOLESTEROL 90 tablet 025 Active naproxen (Naprosyn) 500 MG tabletIndications :Arthralgia of both hands TAKE 1 TABLET(500 MG) BY MOUTH IN THE MORNING AND AT BEDTIME NEEDED FOR MODERATE PAIN 60 tablet 025 Active atorvastatin (Lipitor) 10 MG tabletIndications :Other hyperlipidemia TAKE 1 TABLET BY MOUTH EVERY DAY FOR HIGH CHOLESTEROL 90 tablet 025 2024 Discontinued naproxen (Naprosyn) 500 MG tabletIndications :Arthralgia of both hands TAKE 1 TABLET(500 MG) BY MOUTH IN THE MORNING AND AT BEDTIME NEEDED FOR MODERATE PAIN 60 tablet 025 2024 Discontinued(R eorder (will not trigger notification to Pharmacy)) Active Problems Problem Noted Date Diagnosed Date Dietary counseling 08/12/2024 Assessment & Plan (08/12/2024 6:48 PM EDT): Dietary Recommendations: Fruits, vegetables, whole grains, protein foods, and fat-free or low-fat dairy products are healthy choices. Eat different types of protein foods in your diet. This can include seafood, lean meats, poultry, beans, peas, lentils, nuts, seeds, soy products, and eggs. Limit foods and beverages higher in added sugars, saturated fat, and sodium. 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 Overview (07/24/2023): [facility] Overview: [facility] Pre-employment examination 11/15/2016 History of colonoscopy 03/09/2016 Overview (07/24/2023): 2009 per previous PCP records Overview: 2009 per previous PCP records Essential hypertension 02/13/2016 Overview (08/10/2024): No hydrochlorothiazide due to stones and hypercalcemia per renal Assessment & Plan (08/12/2024 6:46 PM EDT): Above goal since discontinue of hydrochlorothiazide, add olmesartan Bmp in 1 month Assessment & Plan (07/28/2023 1:20 PM EDT): [...] Encounters Date Type Department Care Team Description 09/06/2024 Refill [facility] [address] [place] [address] Sarah Mukherjee NP Arthralgia of both hands 09/06/2024 Refill [facility] [address] [place] [address] Name, MD Ayden Other hyperlipidemia 09/06/2024 Refill [facility] [address] [place], [place] [phone] Name, MD Ayden Other hyperlipidemia; Arthralgia of both hands 08/10/2024 11:30 AM EDT Office Visit [facility] [address] [place] [address] Citlali Tee NP Hypertension, unspecified type (Primary Dx); Essential hypertension; Carpal tunnel syndrome of left wrist; Rheumatoid arthritis involving right hip with positive rheumatoid factor ([facility]); Palpitation; Seasonal allergic rhinitis due to pollen; Dietary counseling; Exercise counseling; Seasonal allergies 08/10/2024 Travel 08/09/2024 Travel 07/30/2024 Telephone [facility] [address] [place] [address] Sherin Acosta MA Chart Prep 07/26/2024 Refill [facility] [address] [place] [address] Saba Hatfield MD Essential hypertension; Primary hypertension 07/19/2024 Orders Only [facility] External Provider, [facility] from Last 3 Months Immunizations Immunization Administration Dates Next Due Hep B, adult 07/10/2023 Influenza injectable quadriv alent preservative free 05/27/2019,04/30/2018,02/27/2017,2015 [...] housing situation today? I have yoseph melissa 08/10/[address] you li [...] Sign Reading Time Taken Comments Blood Pressure 163/95 08/10/2024 11:36 AM EDT Pulse 76 08/10/2024 11:36 AM EDT Temperature 35.7 ??C (96.2 ??F) 08/10/2024 11:36 AM E DT Respiratory Rate 18 08/10/2024 11:36 AM EDT Oxygen Saturation 98% 08/10/2024 11:36 AM EDT Inhaled Oxygen Concentration - - Weight 86.9 kg (191 lb 9.6 oz) 08/10/2024 11:36 AM EDT Height 165.1 cm (5' 5 ) 08/10/2024 11:36 AM EDT Body Mass Index 31.88 08/10/2024 11:36 AM EDT Plan of Treatment Health Maintenance [...] history exists Depression Screening 07/27/2024 07/28/2023, 07/28/19 Alcohol/Substance Use Screening 11/03/2024 11/04/2023 Diabetes: Hemoglobin A1C 03/08/2025 024, 10/24/2023, 09/18/2021, Additional history exists SDOH Screening 08/10/2025 08/10/2024 Tobacco Screening 08/10/2025 08/10/2024 DTaP/Tdap/Td Vaccines (2 - Td or Tdap) [...] Procedure Name Priority Date/Time Associated Diagnosis Comments ECG 12-LEAD Routine 08/10/2024 12:16 PM EDT Palpitation US RENAL BI Routine 07/20/2024 3:43 PM EDT HEMOGLOBIN A1C Routine 03/08/2024 9:40 AM EST Mixed hyperlipidemia HEPATITIS PANEL, GENERAL Routine 10/24/2023 11:19 AM EDT LIPID PANEL, STANDARD Routine 07/14/2023 10:50 AM EDT Essential hypertension Arthralgia of both hands Mixed hyperlipidemia Primary hypertension HM COLONOSCOPY Routine 05/02/2022 from Last 3 Months or Most Recently Relevant to Health Maintenance Results * ECG 12 lead (08/10/2024 12:16 PM EDT) Narrative Citlali Tee NP - 08/10/2024 12:16 PM EDT Sinus arythmia Bradycardia, some inverted p waves , irregular us Citlali Tee NP ECG ORDERABLES Edited Result - Final * US RENAL BI (07/20/2024 3:43 PM EDT) Anatomical Region Laterality Modality Abdomen Ultrasound 07/20/2024 3:43 PM EDT Narrative 07/20/2024 3:45 PM EDT ? [facility] ?[address] ? [place] [address] ? Ultrasound Report ? Signed ? Patient: Bridget,Linell H ?MR#: [id number] ?? [id number] ? : 1960 ?Acct:[id number] ? Age/Sex: 64 / M ?ADM Date: 07/19/24 ? Loc: HO.HMGCX ? Attending Dr: Autumn Patel MD ? Ordering Physician: Autumn Patel MD ?? Date of Service: 07/19/24 ?? Procedure(s): US renal BI ?? Accession Number(s): [id number] ? cc: Citlali Tee NP; Autumn Patel MD ? CLINICAL HISTORY: E21.3 - Hyperparathyroidism, unspecified ? US Renal ? Comparison: None ? Findings: ?? Right kidney normal size and echotexture, 9.3 cm length. ?? Left kidney normal size and echotexture, 10.0 cm length. ?? 2.9 x 2.8 x 2.5 cm cyst containing a septation within the midportion of ?? the left kidney. 1.7 cm simple cyst within the upper pole of the left ?? kidney. ? No hydronephrosis of either kidney. Normal color Doppler ? IMPRESSION: ?? 1. No acute abnormality of the kidneys. ?? 2. 2.9 cm mildly complex cyst within the midportion of the left kidney. ? This document has been electronically signed by: Dolly Campbell MD on ?? 07/20/2024 15:43:13 ? Dictated By: ?Dolly Campbell MD ? Signed By: ?<Electronically signed by Dolly Campbell MD in OV> ? 07/20/24 1544 ? DD/ 1543 ? TD/TT: 07/20/24 1543 ? Operations Research Engineer: ? Procedure Note Jose, Image - 07/20/2024 [facility] [address] Ultrasound Report Signed Patient: Ag Gill R#: [id number] : 9Acct:[id number] Age/Sex: 64 / MADM Date: 07/19/24 [facility] Dr: Autumn Patel MD Ordering Physician: Autumn Patel MD Date of Service: 07/19/24 Procedure(s): US renal BI Accession Number(s): [id number] cc: Citlali Tee SURVEY RESEARCH ASSOCIATE; Autumn Patel MD CLINICAL HISTORY: E21.3 - Hyperparathyroidism, unspecified US Renal Comparison: None Findings: Right kidney normal size and echotexture, 9.3 cm length. Left kidney normal size and echotexture, 10.0 cm length. 2.9 x 2.8 x 2.5 cm cyst containing a septation within the midportion of the left kidney. 1.7 cm simple cyst within the upper pole of the left kidney. No hydronephrosis of either kidney. Normal color Doppler IMPRESSION: 1. No acute abnormality of the kidneys. 2. 2.9 cm mildly complex cyst within the midportion of the left kidney. This document has been electronically signed by: Dolly Campbell MD on 07/20/2024 15:43:13 Dictated By: Dolly Campbell MD Signed By: <Electronically signed by Dolly Campbell MD in OV> 07/20/24 1544 DD/ 1543 TD/TT: 07/20/24 1543 Operations Research Engineer: us [facility] External Provider IMG US PROCEDURES Final Result * Hemoglobin A1c (03/08/2024 9:40 AM EST) Hemoglobin A1c 5.7 <6.0 % [facility] Comment:Hemoglobin A1C Refer ence Range Adults: 4.8 - 6.0 % Non diabetic: < 6.0 % Goal: < 7.0 %Additional Action Suggested: > 8.0 %Note: Hemoglobin A1c results are invalid for patients with abnormal amounts of HbF. Blood transfusions may impact the HbA1c concentration in the patient sample. Estimated Average Glucose 117 mg/dL [facility] Comment:eAG = Estimated ave rage glucose which is %A1C expressed asaverage glucose, using the formula of the K1P-NgjzhwhJljumee Glucose study (ADAG), Diabetes Care, Vol.31,#8,Dec. 2007 Blood Venous blood specimen / Unknown 03/08/2024 9:40 AM EST 03/08/2024 11:04 AM EST us Citlali Tee SURVEY RESEARCH ASSOCIATE LAB BLOOD ORDERABLES Final Resul t Performing Organization Address [facility] Co de Phone Number [facility] [address] [place] [phone] * Hepatitis Panel, General (10/24/2023 11:19 AM EDT) Hepatitis A IgM Nonreactive Nonreactive [facility] Comment:IgM antibodies to PITTS V not detected; does not exclude earlyacute or recovered HAV infection. ~Hepatitis B Surface Antibody REACTIVE Nonreactive [facility] Comment:REACTIVE: > 11.99 mI U/mL Hepatitis B Core Antibody Reactive Nonreactive [facility] Comment:Presumptive evidence of anti-HBc. Hepatitis C Antibody Nonreactive Nonreactive [facility] Comment:Antibodies to HCV no t detected; does not exclude early acuteHCV infection. Hepatitis B Surface Ag Negative Negative [facility] 10/24/2023 11:1 9 AM EDT 10/24/2023 11:19 AM EDT us Generic External Data Provider LAB BLOOD ORDERAB LES Final Result Performing Organization Address [facility] Co de Phone Number [facility] [address] [place] [phone] * Lipid Panel, Standard (07/14/2023 10:50 AM EDT) Triglycerides 100 <150 mg/dL [facility] Comment:Desirable Triglyceri de: less than 150 mg/dLBorderline High Triglyceride 150-199 mg/dLHigh Triglyceride: 200-499 mg/dLVery High Triglyceride: greater than or equal to 5OO mg/dL Cholesterol 137 <200 mg/dL [facility] Comment:Desirable Cholestero l: less than 200 mg/dLBorderline High Cholesterol: 200-239 mg/dLHigh Cholesterol: greater than 239 mg/dL LDL Cholesterol Calculated 74 <100 mg/dL [facility] Comment:Desirable LDL: less than 100 mg/dLNear Optimal/Above Optimal LDL: 110- 129 mg/dLBorderline High LDL: 130-159 mg/dLHigh LDL: 160-189 mg/dLVery High LDL: greater than or equal to 190 mg/dL HDL Cholesterol 43 >40 mg/dL [facility] Comment:Desirable HDL: great er than 40 mg/dL Note: This HDL assay may give artificially low results in patients with liver disease. Blood Venous blood specimen / Unknown 07/14/2023 10:50 AM EDT 07/14/2023 1:02 PM EDT us Saba Hatfield MD LAB BLOOD ORDERABLES Final Result [facility] [address] [place] [phone] * Colonoscopy (05/02/2022) Colonoscopy Normal Normal us Shawanda Feldman NP HEALTH MAINTENANCE Edited Resul t - Final from Last 3 Months or Most Recently Relevant to Health Maintenance [place] [address] , [id number] [place] [address] MEDICARE Care Teams Airplane Cabin Attendant Relationship Specialty Start Date End Date Citlali Tee NP [address] [place] [phone] PCP - General Family Medicine 07/14/23
--- OUTSIDE RECORDS SUMMARY | 2024-09-21 13:15 | XMS_ITS | Encounter Summary ---
Author Organization [employer] Address [address] [facility] [address] [place] [address] Care Team Providers Care Gravel Inspector Name Role Phone Citlali Tee JANE Primary Care Provider [phone] Encounter Details Date Type Department Care Team (Late st Contact Info) Description 12/26/2023 Orders Only [facility] [address] [place] [address] Provider, MD Claude Social History Tobacco Use [...] complete (12/23/2023 12:16 PM EDT) Historical Provider MD [facility] ECHO PROCEDURES Final Result documented in this encounter Visit Diagnoses Not on filedocumented in this encounter Additional Health Concerns Assessment Noted Time PHQ-9 Depression Total Score: 0 07/28/19 11:03 AM EDT documented as of this encounter Care Teams Gravel Inspector Relationship Specialty Start Date End Date Citlali Tee NP [address] [place] [address] PCP - General Family Medicine 07/14/23 documented as of this encounter
--- OUTSIDE RECORDS SUMMARY | 2024-09-21 13:15 | XMS_ITS | Encounter Summary ---
Author Organization [employer] Address [address] [facility] [address] [place] [address] Care Team Providers Care Filler Shredding Machine Loader Name Role Phone Citlali Tee NP Primary Care Provider [phone] Reason for Visit * Reason Onset Date Comments Med Refill 09/06/2024 Encounter Details Date Type Department Care Team (Late st Contact Info) Description 09/06/2024 Refill [facility] [address] [place], [place] [phone] Sarah Mukherjee NP [address] [place], [place] [phone] Arthralgia of both hands Social History Tobacco Use Types Packs/Day Years [...] as of this encounter Visit Diagnoses Diagnosis Arthralgia of both hands documented in this encounter Additional Health Concerns Assessment Noted Time PHQ-9 Depression Total Score: 0 07/28/19 11:03 AM EDT documented as of this encounter Care Teams Filler Shredding Machine Loader Relationship Specialty Start Date End Date Citlali Tee NP [address] [place] [phone] PCP - General Family Medicine 07/14/23 documented as of this encounter
== END 2024-09-21 12:07 | disposition home or self-care (01) ==
LOC: HO.LAB 12:06
PROVIDERS: PCP Nurse Practitioner Family; Visit Provider Student in an Organized Health Care Education/Training Program
DX: Z13.89 Encounter for screening for other disorder (principal)

== ENCOUNTER 2024-09-22 09:09 | Outpatient (REF) | payer MEDICARE, MEDICAID, SELFPAY ==
[2024-09-22 09:45] LABS: MANUAL DIFF FLAG NO
[2024-09-22 10:04] LABS: Basophils Percent Auto 0.4 % (0-2); Eosinophils Absolute Auto 0.2 X10*3/uL (0.0-0.4); Eosinophils Percent Auto 4.5 % (0-4); Hematocrit 37.4 % (42.0-52.0); Hemoglobin 12.3 g/dl (14.0-18.0); Imm Gran Abs Auto 0.01 X10*3/uL (0.00-0.03); Imm Gran Pct Auto 0.2 % (0.0-0.4); Lymphocytes Absolute Auto 1.6 X10*3/uL (1.2-4.9); Lymphocytes Percent Auto 35.9 % (20-40); Mean Corpuscular HGB Conc 32.9 g/dl (31.0-36.0); Mean Corpuscular Hemoglobin 29.9 pg (27.0-33.0); Mean Corpuscular Volume 90.8 fL (80.0-98.0); Mean Platelet Volume 10.5 fL (9.4-12.4); Monocytes Absolute Auto 0.4 X10*3/uL (0.1-1.2); Monocytes Percent Auto 9.6 % (2-11); Neutrophils Absolute Auto 2.2 x10*3/uL (2.0-8.3); Neutrophils Percent Auto 49.4 % (45-73); Platelet Count 250 X10*3/uL (160-400); Red Blood Count 4.12 X10*6/uL (4.60-5.80); Red Cell Distribution Width 12.9 % (11.0-16.0); White Blood Count 4.5 X10*3/uL (4.8-10.8)
--- OUTSIDE RECORDS SUMMARY | 2024-09-22 10:23 | XMS_ITS | Encounter Summary ---
Author Organization [facility] Address [address] [place] [address] Care Team Providers Care Health And Fitness Professor Name Role Phone Americo Hu PA-C Primary Care Provider [phone] Reason for Visit * Reason Comments Dental Diagnostic Exam Dental Hygiene/ Preventive Encounter Details Date Type Department Care Team (Late st Contact Info) Description 09/15/2024 9:40 AM EDT Office Visit [facility] [address] [place] [phone] Donnell Howell RHD [address] [place], [place] [phone] Encounter for dental examination (Primary Dx); Periodontal disease Social History Tobacco Use Types Packs/Day Years [...] Orientation Straight 02/27/2017 2: 16 PM PDT documented as of this encounter Last Filed Vital Signs Vital Sign Reading Time Taken Comments Blood Pressure 155/96 09/15/2024 10:05 AM EDT Pulse 66 09/15/2024 10:05 AM EDT Temperature - - Respiratory Rate - - Oxygen Saturation - - Inhaled Oxygen Concentration - - Weight - - Height - - Body Mass Index - - documented in this encounter Progress Notes * NOHEMY Thapa - 09/15/2024 3:01 PM EDT 4 BWS+ BETHANY+ Prophy Subjective Ag Gill, 64 year old male, presents alone for prophy. Coal Shooter: No Chief Complaint Patient presents with Dental Diagnostic Exam Dental Hygiene/ Preventive Objective RMHx: Yes Vitals: Vitals: 09/15/24 1005 BP: (!) 155/96 Pulse: 66 BP Site: Left Arm BP Position: Sitting BP Cuff Size: Regular Adult Pain Score: 0 - No pain Swollen gums on upper front. Assessment EOE/IOE/Oral Cancer Screen: WNL Oral Hygiene: Fair Home Care: Toothbrush 2 x per day, Floss 0 x per day Fluoride exposure: none Plaque: Generalized Slight Calculus: Generalized Moderate and subgingival Gingival Description: Erythematous, Soft, bulbous dental papillae and lingual of #9, severe. 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 Plan 1) 4 quad SRP pending approval. Pt was denied, will re-submit PA. Informed Consent/PARQ (Procedure, Alternatives, Risks, Questions): Patient confirms informed consent using PARQ. Dental procedures in this visit D9450 - CASE PRESENTATION SUBS DTL & EXTENSIVE TX PLN (Completed) Service provider: NOHEMY Thapa Billing provider: Vane Murry DDS [id number] - ORAL CANCER SCREENING (Completed) Service provider: NOHEMY Thapa Billing provider: Vane Murry DDS D1330 - ORAL HYGIENE INSTRUCTIONS (Completed) Service provider: NOHEMY Thapa Billing provider: Vane Murry DDS D1310 - NUTRITIONAL COUNSELING CONTROL OF DENTAL DISEASE (Completed) Service provider: NOHEMY Thapa Billing provider: Vane Murry DDS D0603 - CARIES RISK ASSESSMENT & DOC FINDING HIGH RISK (Completed) Service provider: NOHEMY Thapa Billing provider: Vane Murry DDS D0274 - BITEWINGS - FOUR RADIOGRAPHIC IMAGES (Completed) Service provider: NOHEMY Thapa Billing provider: Vane Murry DDS D0180 - COMP PERIODONTAL EVALUATION - NEW/EST PATIENT (Completed) Service provider: NOHEMY Thapa Billing provider: Vane Murry DDS D1110 - PROPHYLAXIS - ADULT (Completed) Service provider: NOHEMY Thapa Billing provider: Vane Murry DDS D9993 - DENTAL CASE MANAGEMENT - MOTIVATIONAL INTV (Completed) Service provider: NOHEMY Thapa Billing provider: Vane Murry DDS D0120 - PERIODIC ORAL EVALUATION ESTABLISHED PATIENT (Completed) Service provider: NOHEMY Thapa Billing provider: Vane Murry DDS Prophkenji completed with ultrasonic guard immigration, hand scaling, coronal polishing, and floss OHI & Nutrition counseling provided. Post-Op Information Given: verbal Referral: No orders of the following type(s) were placed in this encounter: Referral. Rx: No orders of the defined types were placed in this encounter. Behavior: Excellent NV: SRP: pending PA documented in this encounter Miscellaneous Notes * Patient Instructions - NOHEMY Thapa - 09/15/2024 10:32 AM EDT If you are not able to keep your appointment please call 24-48 hours before your appointment to cancel or reschedule. documented in this encounter Plan of Treatment Scheduled Orders Name Type Priority Associated Diagnoses Orde r Schedule UR UR PRDONTAL SCALING&ROOT PLANING 4/MORE TEETH-QUAD Dental Procedures Routine 1 Occurrences starting 09/22/2024 LR LR PRDONTAL SCALING&ROOT PLANING 4/MORE TEETH-QUAD Dental Procedures Routine 1 Occurrences starting 09/22/2024 UL UL PRDONTAL SCALING&ROOT PLANING 4/MORE TEETH-QUAD Dental Procedures Routine 1 Occurrences starting 09/22/2024 LL LL PRDONTAL SCALING&ROOT PLANING 4/MORE TEETH-QUAD Dental Procedures Routine 1 Occurrences starting 09/22/2024 documented as of this encounter Procedures Procedure Name Priority Date/Time Associated Diagnosis Comments ORAL CANCER SCREENING Routine 09/15/2024 9:40 AM EDT Encounter for dental examination DENTAL CASE MANAGEMENT - MOTIVATIONAL INTV Routine 09/15/2024 9:40 AM EDT Encounter for dental examination CARIES RISK ASSESSMENT & DOC FINDING HIGH RISK Routine 09/15/2024 9:40 AM EDT Encounter for dental examination CASE PRESENTATION SUBS DTL & EXTENSIVE TX PLN Routine 09/15/2024 9:40 AM EDT Encounter for dental examination COMP PERIODONTAL EVALUATION - NEW/EST PATIENT Routine 09/15/2024 9:40 AM EDT Encounter for dental examination ORAL HYGIENE INSTRUCTIONS Routine 09/15/2024 9:40 AM EDT Encounter for dental examination NUTRITIONAL COUNSELING CONTROL OF DENTAL DISEASE Routine 09/15/2024 9:40 AM EDT Encounter for dental examination PROPHYLAXIS - ADULT Routine 09/15/2024 9 :40 AM EDT Encounter for dental examination BITEWINGS - FOUR RADIOGRAPHIC IMAGES Routine 09/15/2024 9:40 AM EDT Encounter for dental examination PERIODIC ORAL EVALUATION ESTABLISHED PATIENT Routine 09/15/2024 9:40 AM EDT Encounter for dental examination documented in this encounter Visit Diagnoses Diagnosis Encounter for dental examination- Primary Dental examination Periodontal disease Unspecified gingival and periodontal disease documented in this encounter Care Teams Health And Fitness Professor Relationship Specialty Start Date End Date Americo Hu PA-C [address] [place] [address] PCP - General 10/12/21 documented as of this encounter
--- OUTSIDE RECORDS SUMMARY | 2024-09-22 10:23 | XMS_ITS | Clinical Summary ---
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
--- OUTSIDE RECORDS SUMMARY | 2024-09-22 10:23 | XMS_ITS | Clinical Summary ---
Author Organization [employer] Address [address] [facility] [address] [place] [address] Care Team Providers Care Shop Director Name Role Phone Citlali Tee JANE Primary Care Provider [phone] Allergies Active Allergy Reactions Criticality Noted Date [...] Type Department Care Team Description 09/06/2024 Refill [facility] [address] [place] [address] Sarah Mukherjee NP Arthralgia of both hands 09/06/2024 Refill [facility] [address] [place] [address] Name, MD Ayden Other hyperlipidemia 09/06/2024 Refill [facility] [address], [place] [phone] Name, MD Ayden Other hyperlipidemia; Arthralgia of both hands 08/10/2024 11:30 AM EDT Office Visit [facility] [address] [place] [address] Citlali Tee NP Hypertension, unspecified type (Primary Dx); Essential hypertension; Carpal tunnel syndrome of left wrist; Rheumatoid arthritis involving right hip with positive rheumatoid factor ([facility]); Palpitation; Seasonal allergic rhinitis due to pollen; Dietary counseling; Exercise counseling; Seasonal allergies 08/10/2024 Travel 08/09/2024 Travel 07/30/2024 Telephone [facility] [address] [place] [address] Sherin Acotsa MA Chart Prep 07/26/2024 Refill [facility] [address] [place] [address] Saba Hatfield MD Essential hypertension; Primary hypertension 07/19/2024 Orders Only [facility] External Provider, [facility] from Last 3 Months Immunizations Immunization Administration [...] Adult Primary Care ?[address] ? [place] [address] ? Ultrasound Report ? Signed ? Patient: Bridget,Linell H ?MR#: [id number] ?? [id number] ? : 1960 ?Acct:[id number] ? Age/Sex: 64 / M ?ADM Date: 07/19/24 ? Loc: HO.HMGCX ? Attending Dr: Autumn Patel MD ? Ordering Physician: Autumn Patel MD ?? Date of Service: 07/19/24 ?? Procedure(s): US renal BI ?? Accession Number(s): [id number] ? cc: Citlali Tee NP; Autumn Patel [...] DD/ 1543 ? TD/TT: 07/20/24 1543 ? Hazmat Cdl A Driver: ? Procedure Note Jose, Image - 07/20/2024 [facility] Adult Primary [facility] [place] [address] Ultrasound Report Signed Patient: Ag Gill R#: [id number] : 9Acct:[id number] Age/Sex: 64 / MADM Date: 07/19/24 [facility]: Autumn Patel MD Ordering Physician: Autumn Patel MD Date of Service: 07/19/24 Procedure(s): US renal BI Accession Number(s): [id number] cc: Citlali Tee ADULT BASIC EDUCATION TEACHER; Autumn Patel MD CLINICAL HISTORY: E21.3 - [...] 07/20/24 1544 DD/ 1543 TD/TT: 07/20/24 1543 Hazmat Cdl A Driver: us [facility] External Provider IMG US PROCEDURES Final Result * Hemoglobin A1c (03/08/2024 9:40 AM EST) Hemoglobin A1c 5.7 <6.0 % [facility] Comment:Hemoglobin A1C Refer ence Range Adults: 4.8 - 6.0 % Non diabetic: < 6.0 % Goal: < 7.0 %Additional Action Suggested: > 8.0 %Note: Hemoglobin A1c results are invalid for patients with abnormal amounts of HbF. Blood transfusions may impact the HbA1c concentration in the patient sample. Estimated Average Glucose 117 mg/dL [facility] Comment:eAG = Estimated ave rage glucose which is %A1C expressed asaverage glucose, using the formula of the L4I-IqacotjOsvqbau Glucose study (ADAG), Diabetes Care, Vol.31,#8,Dec. 2007 Blood Venous blood specimen / Unknown 03/08/2024 9:40 AM EST 03/08/2024 11:04 AM EST us Citlali Tee ADULT BASIC EDUCATION TEACHER LAB BLOOD ORDERABLES Final Resul t Performing Organization Address [facility] [address] [facility] Co de Phone Number [facility] [address] [place] [phone] * Hepatitis Panel, General (10/24/2023 11:19 AM EDT) Hepatitis A IgM Nonreactive Nonreactive [facility] Comment:IgM antibodies to PITTS V not detected; does not exclude earlyacute or recovered HAV infection. ~Hepatitis B Surface Antibody REACTIVE Nonreactive [facility] Comment:REACTIVE: > 11.99 mI U/mL Hepatitis B Core Antibody Reactive Nonreactive [facility] Comment:Presumptive evidence of anti-HBc. Hepatitis C Antibody Nonreactive Nonreactive [facility] Comment:Antibodies to HCV no t detected; does not exclude early acuteHCV infection. Hepatitis B Surface Ag Negative Negative [facility] 10/24/2023 11:1 9 AM EDT 10/24/2023 11:19 AM EDT us Generic External Data Provider LAB BLOOD ORDERAB LES Final Result Performing Organization Address [facility] [address]/[facility] Co de Phone Number [facility] [address] [place] [phone] * Lipid Panel, Standard (07/14/2023 10:50 AM EDT) Triglycerides 100 <150 mg/dL [facility] Comment:Desirable Triglyceri de: less than 150 mg/dLBorderline High Triglyceride 150-199 mg/dLHigh Triglyceride: 200-499 mg/dLVery High Triglyceride: greater than or equal to 5OO mg/dL Cholesterol 137 <200 mg/dL [facility] Comment:Desirable Cholestero l: less than 200 mg/dLBorderline High Cholesterol: 200-239 mg/dLHigh Cholesterol: greater than 239 mg/dL LDL Cholesterol Calculated 74 <100 mg/dL [facility] Comment:Desirable LDL: less than 100 mg/dLNear Optimal/Above Optimal LDL: 110- 129 mg/dLBorderline High LDL: 130-159 mg/dLHigh LDL: 160-189 mg/dLVery High LDL: greater than or equal to 190 mg/dL HDL Cholesterol 43 >40 mg/dL [facility] Comment:Desirable HDL: great er than 40 mg/dL Note: This HDL assay may give artificially low results in patients with liver disease. Blood Venous blood specimen / Unknown 07/14/2023 10:50 AM EDT 07/14/2023 1:02 PM EDT us Saba Hatfield MD LAB BLOOD ORDERABLES Final Result [facility] [address] [place] [phone] * Colonoscopy (05/02/2022) Colonoscopy Normal Normal us Shawanda Feldman NP HEALTH MAINTENANCE Edited Resul t - Final from Last 3 Months or Most Recently Relevant to Health Maintenance [place] [address] , [id number] [place] [address] MEDICARE Care Teams Shop Director Relationship Specialty Start Date End Date Citlali Tee NP [address] [place] [phone] PCP - General Family Medicine 07/14/23
--- OUTSIDE RECORDS SUMMARY | 2024-09-22 10:23 | XMS_ITS | Encounter Summary ---
Author Organization [employer] Address [address] [facility] [address] [place] [address] Care Team Providers Care Intelligence Group Supervisor Name Role Phone Citlali Tee JANE Primary Care Provider [phone] Reason for Visit * Reason Onset Date Comments Med Refill 09/06/2024 Encounter Details Date Type Department Care Team ([facility] st Contact Info) Description 09/06/2024 Refill [facility] [address] [place], [place] [phone] Name, MD Ayden [address] [place] [address] Other hyperlipidemia Social History Tobacco Use Types [...] documented as of this encounter Care Teams Intelligence Group Supervisor Relationship Specialty Start Date End Date Citlali Tee NP [address] [place] [phone] PCP - General Family Medicine 07/14/23 documented as of this encounter
--- OUTSIDE RECORDS SUMMARY | 2024-09-22 10:23 | XMS_ITS | Encounter Summary ---
Author Organization [employer] Address [address] [facility] [address] [place] [address] Care Team Providers Care Legal Librarian Name Role Phone Citlali Tee NP Primary Care Provider [phone] Reason for Visit * Reason Onset Date Comments Med Refill 09/06/2024 Encounter Details Date Type Department Care Team (Late st Contact Info) Description 09/06/2024 Refill [facility] [address] [place], [place] [phone] Sarah Mukherjee NP [address] [place], [place] [phone] Arthralgia of both hands Social History Tobacco [...] documented as of this encounter Care Teams Legal Librarian Relationship Specialty Start Date End Date Citlali Tee NP [address] [place] [phone] PCP - General Family Medicine 07/14/23 documented as of this encounter
--- OUTSIDE RECORDS SUMMARY | 2024-09-22 10:23 | XMS_ITS | Clinical Summary ---
Author Organization [facility] Address [address] [place] [address] Phone Care Team Providers Care Business Development Assistant Name Role Phone Physician, Pcp Unknown Primary Care Provider Rupali vailable Allergies Active Allergy Reactions Criticality Noted Date Comments Adhesive 09/21/2024 Ibuprofen 10/30/2023 Latex Rash,Unknown Medium 02/01/2016 Stewart to skin Medications No known medications Encounters Date Type Department Care Team Description 09/21/2024 9:38 AM EDT - 09/21/2024 11:40 AM EDT Emergency [facility] [address] [place] [address] Lei Mario MD Chest pain, [...] Years (1 of 1 - PCV) 2009 Colorectal Cancer Screening: Colonoscopy 06/03/2023 Hepatitis C Screening 06/03/2023 Medicare Annual Wellness Visit 06/03/2023 Social Influencers of Health Screening 06/03/2023 Hepatitis B Vaccines (2 of 3 - 19+ 3-dose series) 08/07/2023 07/10/2023 COVID-19 Vaccine ( - 2023- season) 2024 07/17/2021, 09/25/2020, 09/04/2020 Falls Risk Assessment 2024 Depression Screening 07/27/2024 07/28/2023 Influenza Vaccine (Season Ended) 2025 02/12/2021, 05/27/2019, 04/30/2018, Additional history exists Hypertension/CHF/CAD Annual BMP Blood Test 09/21/2025 09/21/2024 DTaP,Tdap,and Td Vaccines (2 - Td or [...] Name Priority Date/Time Associated Diagnosis Comments XR CHEST 2 VIEWS STAT 09/21/2024 11:0 5 AM EDT D-DIMER STAT 09/21/2024 10:25 AM EDT TROPONIN [...] EDT from Last 3 Months Results * XR Chest 2 Views (09/21/2024 11:05 AM EDT) Anatomical Region Laterality Modality Body Radiographic Mary ging 09/21/2024 2:08 PM EDT Impressions 09/21/2024 2:12 PM EDT FINDINGS/IMPRESSION: Hypoventilatory examination without consolidation or effusion. ??No pneumothorax. ??Hiatal hernia. ??Degenerative changes of the shoulders. -------- FINAL REPORT -------- Dictated By: Raven Anderson Dictated Date: 09/21/2024 14:08 ET Assigned Physician: Raven Anderson Reviewed and Electronically Signed By: Raven Anderson Signed Date: 09/21/2024 14:12 ET Workstation ID: [id number] Transcribed By: Self Edit Transcribed Date: 09/21/2024 14:08 ET Narrative 09/21/2024 2:12 PM EDT XR CHEST 2 VIEWS INDICATION: chest pain TECHNIQUE: XR CHEST 2 VIEWS COMPARISON: No priors available. Procedure Note Raven Anderson MD - 09/21/2024 XR CHEST 2 VIEWS INDICATION: chest pain TECHNIQUE: XR CHEST 2 VIEWS COMPARISON: No priors available. IMPRESSION: FINDINGS/IMPRESSION: Hypoventilatory examination without consolidation oreffusion. No pneumothorax. Hiatal hernia. Degenerative changes of theshoulders. -------- FINAL REPORT -------- Dictated By: Raven Anderson Dictated Date: 09/21/2024 14:08 ET Assigned Physician: Raven Anderson Reviewed and Electronically Signed By: Raven Anderson Signed Date: 09/21/2024 14:12 ET Workstation ID: [id number] Transcribed By: Self Edit Transcribed Date: 09/21/2024 14:08 ET us Lei Mario MD IMG XR PROCEDURES Final Res ult * Troponin I high sensitivity (09/21/2024 10:25 AM EDT) Only the most recent of2 resultswithin the time period is included. High Sensitivity Troponin I 8 <=79 ng/L LAB CHEMISTRY METHOD 09/21/2024 11:14 AM EDT [facility] Blood Venous blood specimen / Unknown Venipuncture / Unknown 09/21/2024 10:25 AM EDT 09/21/2024 10:42 AM EDT [facility] - 09/21/2024 11:14 AM EDT High levels of biotin in samples may falsely decrease hsTroponin values. ??Use caution when interpreting hsTroponin results in patients taking biotin who exhibit renal impairment (eGFR <60) or in patients taking more than 20 mg/day of biotin. Lei Mario MD LAB BLOOD ORDERABLES Final Result Performing Organization Address [facility]/ZIP Co de Phone Number [facility] [address] [place] [address], [place] [phone] * D-dimer, quantitative (09/21/2024 10:25 AM EDT) Pathologist [facility] D-Dimer, Quant (D-DU) <150 <=230 ng/mL DDU LAB COAGULATION METHOD 09/21/2024 11:11 AM EDT [facility] Blood Venous blood specimen / Unknown Venipuncture / Unknown 09/21/2024 10:25 AM EDT 09/21/2024 10:42 AM EDT [facility] - 09/21/2024 11:11 AM EDT D-Dimer <230 ng/mL (D-Dimer units) is the threshold for exclusion of DVT/PE. D-Dimer may be elevated in: Critically ill, severely infected, trauma patients, DIC, acute CVA, acute WI, unstable angina, AF, old age, , and smoking. D-Dimer may be decreased with: Initiation of heparin therapy and oral anticoagulants. us Lei Mario MD LAB BLOOD ORDERABLES Final Result Performing Organization Address [facility]/ZIP Co de Phone Number [facility] [address] [place] [address], [place] [phone] * ECG 12 lead (09/21/2024 9:54 AM EDT) Only the most recent of2 resultswithin the time period is included. Ventricular Rate ECG 55 BPM GEMUSE Atrial Rate 55 BPM GEMUSE P-R Interval 184 ms GEMUSE QRS Duration 92 ms GEMUSE Q-T Interval 426 ms GEMUSE QTc 407 ms GEMUSE P Wave [place] 40 degrees GEMUSE R [place] 25 degrees GEMUSE T [place] -2 degrees GEMUSE ECG Interpretation Sinus bradycardia with Premature atrial complexes Nonspecific ST and T wave abnormality Abnormal ECG When compared with ECG of 21-SEP-2024 07:36, (unconfirmed) Non-specific change in ST segment in Lateral leads Nonspecific T wave abnormality has replaced inverted T waves in Lateral leads Confirmed by Arlene DEL TORO JOHN ([id number]) on 09/21/2024 7:04:54 PM GEMUSE 09/21/2024 9:54 AM EDT 09/21/2024 7:04 PM EDT us Lei Mario MD ECG ORDERABLES Final Resul t GEMUSE * (ABNORMAL) CBC auto differential (09/21/2024 7:48 AM EDT) WBC 5.5 4.8 - 10.8 K/mcL LAB HEMETOLOGY METHOD 09/21/2024 8:21 AM EDT [facility] RBC 4.30(L) 4.50 - 5.50 M/mcL LAB HEMETOLOGY METHOD 09/21/2024 8:21 AM [facility] Hemoglobin 12.5(L) 13.5 - 17.5 g/dL LAB HEMETOLOGY METHOD 09/21/2024 8:21 AM [facility] Hematocrit 40.6(L) 42.0 - 54.0 % LAB HEMETOLOGY METHOD 09/21/2024 8:[facility] MCV 93.8 79.0 - 98.0 FL LAB HEMETOLOGY METHOD 09/21/2024 8:21 AM [facility] MCH 28.9 27.0 - 32.0 pcg LAB HEMETOLOGY METHOD 09/21/2024 8:21 AM [facility] MCHC 30.8(L) 32.0 - 37.0 g/dL LAB HEMETOLOGY METHOD 09/21/2024 8:21 AM [facility] RDW 12.9 11.0 - 15.0 % LAB HEMETOLOGY METHOD 09/21/2024 8:21 AM [facility] Platelets 230 130 - 400 K/mcL LAB HEMETOLOGY METHOD 09/21/2024 8:21 AM [facility] MPV 10.5 7.0 - 11.0 FL LAB HEMETOLOGY METHOD 09/21/2024 8:21 AM [facility] NRBC 0.0 <1.0 % LAB HEMETOLOGY METHOD 09/21/2024 8:21 AM [facility] NRBC Absolute 0.00 <0.10 K/mcL LAB HEMETOLOGY METHOD 09/21/2024 8:21 AM [facility] Neutrophils Relative 51.1 % LAB HEMETOLOGY METHOD 09/21/2024 8:21 AM [facility] Lymphocytes Relative 36.5 % LAB HEMETOLOGY METHOD 09/21/2024 8:21 AM [facility] Monocytes Relative 8.1 % LAB HEMETOLOGY METHOD 09/21/2024 8:21 AM [facility] Eosinophils Relative 3.4 % LAB HEMETOLOGY METHOD 09/21/2024 8:21 AM [facility] Basophils Relative 0.5 % LAB HEMETOLOGY METHOD 09/21/2024 8:21 AM [facility] Immature Granulocytes Relative 0.4 % LAB HEMETOLOGY METHOD 09/21/2024 8:21 AM [facility] Neutrophils Absolute 2.83 1.50 - 7.00 K/mcL LAB HEMETOLOGY METHOD 09/21/2024 8:21 AM EDT [facility] Lymphocytes Absolute 2.02 1.00 - 5.00 K/[facility] HEMETOLOGY METHOD 09/21/2024 8:21 AM EDT [facility] Monocytes Absolute 0.45 0.20 - 1.00 K/[facility] HEMETOLOGY METHOD 09/21/2024 8:21 AM EDT [facility] Eosinophils Absolute 0.19 0.00 - 0.50 K/[facility] HEMETOLOGY METHOD 09/21/2024 8:21 AM EDT [facility] Basophils Absolute 0.03 0.00 - 0.20 K/[facility] HEMETOLOGY METHOD 09/21/2024 8:21 AM EDT [facility] Immature Granulocytes Absolute 0.02 0.00 - 0.03 K/[facility] HEMETOLOGY METHOD 09/21/2024 8:21 AM EDT [facility] Blood Venous blood specimen / Unknown Venipuncture / Unknown 09/21/2024 7:48 AM EDT 09/21/2024 8:14 AM EDT Lei Mario MD LAB BLOOD ORDERABLES Final Result Performing Organization Address [facility] Co de Phone Number [facility] [address] [place] [address], * B-type natriuretic peptide (09/21/2024 7:48 AM EDT) BNP 27 <=100 pcg/mL LAB CHEMISTRY METHOD 09/21/2024 8:54 AM EDT [facility] Blood Venous blood specimen / Unknown Venipuncture / Unknown 09/21/2024 7:48 AM EDT 09/21/2024 8:14 AM EDT Lei Mario MD LAB BLOOD ORDERABLES Final Result Performing Organization Address City/[facility] de Phone Number [facility] [address] [place] [address], * Magnesium (09/21/2024 7:48 AM EDT) Pathologist [facility] Magnesium 2.2 1.9 - 2.6 mg/dL LAB CHEMISTRY METHOD 09/21/2024 8:46 AM EDT [facility] Blood Venous blood specimen / Unknown Venipuncture / Unknown 09/21/2024 7:48 AM EDT 09/21/2024 8:14 AM EDT Lei Mario MD LAB BLOOD ORDERABLES Final Result Performing Organization Address [facility] de Phone Number [facility] [address] [place] [address], * Lipase (09/21/2024 7:48 AM EDT) [facility] Lipase 28 13 - 75 unit/L LAB CHEMISTRY METHOD 09/21/2024 8:46 AM EDT [facility] Blood Venous blood specimen / Unknown Venipuncture / Unknown 09/21/2024 7:48 AM EDT 09/21/2024 8:14 AM EDT Lei Mario MD LAB BLOOD ORDERABLES Final Result Performing Organization Address [facility] Co de Phone Number [facility] [address] [place] [address], [place] [phone] * (ABNORMAL) Comprehensive metabolic panel (09/21/2024 7:48 AM EDT) Pathologist [facility] Sodium 136 133 - 145 mmol/L LAB CHEMISTRY METHOD 09/21/2024 8:46 AM EDT [facility] Potassium 3.9 3.5 - 5.5 mmol/L LAB CHEMISTRY METHOD 09/21/2024 8:46 AM [facility] Chloride 106 96 - 110 mmol/L LAB CHEMISTRY METHOD 09/21/2024 8:46 AM [facility] CO2 24 21 - 32 mmol/L LAB CHEMISTRY METHOD 09/21/2024 8:46 AM [facility] Anion Gap 6 3 - 11 LAB CHEMISTRY METHOD 09/21/2024 8:46 AM [facility] Glucose 118(H) 70 - 100 mg/dL LAB CHEMISTRY METHOD 09/21/2024 8:46 AM [facility] BUN 17 5 - 25 mg/dL LAB CHEMISTRY METHOD 09/21/2024 8:46 AM [facility] Creatinine 1.10 0.70 - 1.30 mg/dL LAB CHEMISTRY METHOD 09/21/2024 8:46 AM [facility] eGFR 74 >=60 mL/min/1. 73m2 LAB CHEMISTRY METHOD 09/21/2024 8:46 AM [facility] Comment:Calculation based on the Chronic Kidney Disease Epidemiology Collaboration (CKD-EPI) equation refit without adjustment for race. BUN/Creatinine Ratio 15.5 LAB CHEMISTRY METHOD 09/21/2024 8:46 AM [facility] Calcium 11.2(H) 8.5 - 10.5 mg/dL LAB CHEMISTRY METHOD 09/21/2024 8:46 AM [facility] AST (SGOT) 29 10 - 42 unit/L LAB CHEMISTRY METHOD 09/21/2024 8:46 AM [facility] ALT (SGPT) 31 10 - 60 unit/L LAB CHEMISTRY METHOD 09/21/2024 8:46 AM [facility] Alkaline Phosphatase 107 42 - 121 unit/L LAB CHEMISTRY METHOD 09/21/2024 8:46 AM [facility] Total Protein 8.3(H) 6.0 - 8.0 g/dL LAB CHEMISTRY METHOD 09/21/2024 8:46 AM EDT [facility] Albumin 4.6 3.2 - 5.0 g/dL LAB CHEMISTRY METHOD 09/21/2024 8:46 AM EDT [facility] Total Bilirubin 0.4 0.0 - 1.4 mg/dL LAB CHEMISTRY METHOD 09/21/2024 8:46 AM EDT [facility] Blood Venous blood specimen / Unknown Venipuncture / Unknown 09/21/2024 7:48 AM EDT 09/21/2024 8:14 AM EDT us Lei Mario MD LAB BLOOD ORDERABLES Final Result [facility] [address] [place] [address], [place] [phone] from Last 3 Months Insurance MEDICARE MEDICAID - [place] Care Teams Business Development Assistant Relationship Specialty Start Date End Date Physician, Pcp Unknown PCP - General 09/21/24
--- OUTSIDE RECORDS SUMMARY | 2024-09-22 10:23 | XMS_ITS | Clinical Summary ---
Author Organization [facility] Address [address] [place] [address] Care Team Providers Care Satellite Installation Technician Name Role Phone Americo Hu PA-C Primary Care Provider [phone] Source Comments PLEASE NOTE, if this patient [...] Description 09/15/2024 9:40 AM EDT Office Visit [facility] [address] [place] [phone] Donnell Howell RHD Encounter for dental examination [...] 05/27/2020 05/27/2019, 04/30/2018, 08/08/2016, Additional history exists [id number] (2023- season) 2024 07/17/2021, 09/25/2020, 09/04/2020 Imm-Influenza [...] HIV-2 ANTIBODIES (06/03/2019 9:45 AM EST) Pathologist [facility] HIV 1 AND 2 ANTIBODY SCREEN NEGATIVE NEGATIVE [facility] Comment: This assay is a 4th generation [...] AM EST 06/03/2019 9:46 AM EST [facility]ative [facility] 06/03/2019 12:50 PM EST [employer] [address] Ic Design Engineer - Dhara Flores MD PT ID [id number] ORD# [id number] Mercedes RAMIREZ LAB - BLOOD DRAW Final Resu lt [employer] [address] [address], * HEMOGLOBIN, GLYCOSYLATED (A1C) (06/03/2019 9:45 AM EST) GLYCATED HEMOGLOBIN A1C 5.1 <6.5 % [facility] ESTIMATED AVERAGE GLUCOSE 100 mg/dL [facility] Blood specimen (specimen) Blood / Unknown 06/03/2019 9:45 AM EST 06/03/2019 9:46 AM EST Narrative [facility] - 06/03/2019 12:31 PM EST [employer] [address] Ic Design Engineer - Dhara Flores MD PT ID [id number] ORD# [id number] Mercedes RAMIREZ LAB - BLOOD DRAW Final Resu lt Performing Organization Address City/[facility]/ZIP Co [place] [address], [place] [phone] * (ABNORMAL) LIPID PANEL (06/03/2019 9:44 AM EST) CHOLESTEROL 187 0 - 200 mg/dL [facility] TRIGLYCERIDES 73 0 - 150 mg/dL [facility] HDL CHOLESTEROL 58 >40 mg/dL [facility] LDL CALCULATED 115(H) 0 - 100 mg/dL [facility] TC-HDLC RATIO 3.2 0 - 4.4 mg/dL [facility] Blood specimen (specimen) Blood / Unknown 06/03/2019 9:44 AM EST 06/03/2019 9:46 AM EST Narrative [facility] - 06/03/2019 12:01 PM EST [employer], a member of [address] [address] Ic Design Engineer - Dhara Flores MD PT ID [id number] ORD# [id number] Mercedes RAMIREZ LAB - BLOOD DRAW Final Resu lt Performing Organization Address City/[facility]/ZIP Co de Phone Number [address] [address], [place] [phone] * (ABNORMAL) hepatitis ABC panel future (04/30/2018 9:50 AM EST) HEPATITIS B SURFACE ANTIBODY POSITIVE(A) NEGATIVE [facility] HEPATITIS B SURFACE ANTIGEN NEGATIVE NEGATIVE [facility] Comment: Over the counter supplements containing high doses of biotin may interfere with this assay. ??If interference is suspected, patients shoud be retested after refraining from biotin supplements for 72 hours. HEPATITIS C VIRUS DIAGNOSTIC NEGATIVE NEGATIVE [facility] HEPATITIS A ANTIBODY TOTAL POSITIVE(A) NEGATIVE [facility] Comment: Over the counter supplements containing high doses of biotin may interfere with this assay. ??If interference is suspected, patients shoud be retested after refraining from biotin supplements for 72 hours. HEPATITIS B CORE ANTIBODY POSITIVE(A) NEGATIVE [facility] Blood specimen (specimen) Blood / Unknown 04/30/2018 9:50 AM EST 04/30/2018 11:36 AM EST Narrative [facility] - 04/30/2018 7:16 PM EST [employer] [address] Ic Design Engineer - Janell Pollack MD PT ID [id number] ORD# [id number] Clinton Hanson MD LAB - BLOOD DRAW Edited Result [place] [address], from Last 3 Months or Most Recently Relevant to Health Maintenance Insurance [facility] ([facility]) Member Subscriber Plan / Payer (Ef fective 2019-Present) Name:Ag Gill Relation to Subscriber:Self Name:Ag Gill Payer ID:[id number] Group ID:Not on file Type:Indemnity Address: [address] [place] [address] [employer] [place] MEDICAID DENTAL Care Teams Satellite Installation Technician Relationship Specialty Start Date End Date Americo Hu PA-C [address] [place] [address] PCP - General 10/12/21
--- OUTSIDE RECORDS SUMMARY | 2024-09-22 10:23 | XMS_ITS | Encounter Summary ---
Author Organization [employer] Address [address] [place] [address] Care Team Providers Care Department Sales Manager Name Role Phone Citlali Tee JANE Primary Care Provider [phone] Reason for Visit * Reason Comments Med Refill Encounter Details Date Type Department Care Team (Late st Contact Info) Description 08/08/2023 Refill [facility] [address] [place], [place] [phone] Estelle Cain ANP [address], [place] [phone] Essential hypertension; Primary hypertension Social History Tobacco [...] documented as of this encounter Care Teams Department Sales Manager Relationship Specialty Start Date End Date Citlali Tee NP [address] [place] [address] PCP - General Family Medicine 07/14/23 documented as of this encounter
--- OUTSIDE RECORDS SUMMARY | 2024-09-22 10:23 | XMS_ITS | Encounter Summary ---
Author Organization [employer] Address [address] [place] [address] Care Team Providers Care Fugitive Investigator Name Role Phone Estelle Cain GINI Primary Care Provider [phone] Citlali Tee CONVENTIONS ASSISTANT Primary Care Provider [phone] Encounter Details Date Type Department Care Team (Late st Contact Info) Description 04/16/2023 Orders Only [facility] [address] [place] [address] Susan Pimentel LPN Social History Tobacco Use [...] FACTOR Routine 10/24/2023 11: 19 AM EDT [id number] G ENZYME Routine 10/24/2023 11:19 AM EDT [...] IMMUNOGLOBULIN G 1340 600 - 1540 mg/dL [facility] IMMUNOGLOBULIN A 233 70 - 320 mg/dL [facility] Immunoglobulin M 84 50 - 300 mg/dL [facility] Comment:THIS TEST WAS PERFOR MED AT:[employer] [place] [phone] BLANCHARD MD Immunofixation Result SEE NOTE [facility] Comment:Normal pattern. No m onoclonal proteins detected. 10/24/2023 11:1 9 AM EDT 10/24/2023 11:19 AM EDT us Generic External Data Provider LAB BLOOD ORDERAB LES Final Result [facility] [address] [place] [phone] * (ABNORMAL) Angiotensin -1- Converting Enzyme (10/24/2023 11:19 AM EDT) Pathologist [facility] Angiotensin Converting Enzyme 70(A) 9 - 67 U/L [facility] Comment:THIS TEST WAS PERFOR MED AT:[id number] [place] [phone] DU MD,PHD 10/24/2023 11:1 9 AM EDT 10/24/2023 11:19 AM EDT us Generic External Data Provider LAB BLOOD ORDERAB LES Final Result [facility] [address] [place] [phone] * (ABNORMAL) Protein Electrophoresis and [place]/Lambda Light Chains (10/24/2023 11:19 AM EDT) Pathologist [facility] Prot Elec - Total Protein 8.2(A) 6.1 - 8.1 g/dL [facility] Prot Elec - Albumin 4.7 3.8 - 4.8 g/dL [facility] Prot Elec - Alpha1 0.3 0.2 - 0.3 g/dL [facility] Prot Elec - Alpha2 0.8 0.5 - 0.9 g/dL [facility] Prot Elec - Beta 1 0.6 0.4 - 0.6 g/dL [facility] Prot Elec - Beta 2 0.3 0.2 - 0.5 g/dL [facility] Prot Elec - Gamma 1.5 0.8 - 1.7 g/dL [facility] PES - Abn Protein Band 1 [facility] PES-Abn Protein Band 2 [facility] PES-Abn Protein Band 3 [facility] Prot Elec - Interpretation SEE NOTE [facility] Comment:Normal Serum Protein Electrophoresis Pattern.No abnormal protein bands (M-protein) detected.THIS TEST WAS PERFORMED AT:[employer] [place] [phone] BLANCHARD MD 10/24/2023 11:1 9 AM EDT 10/24/2023 11:19 AM EDT us Generic External Data Provider LAB BLOOD ORDERAB LES Final Result [facility] [address] [place] [phone] * SHERYL Screen,IFA, with Reflex to Titer and Pattern (10/24/2023 11:19 AM EDT) Anti Nuclear Antibody Screen NEGATIVE NEGATIVE [facility] Comment:SHERYL IFA is a first [...] clinicallysuspected inflammatory myopathies.AC-0: NegativeInternational Consensus on SHERYL Patterns(https://doi.org/10.1515/kkzh-2232-3306)For additional information, please refer tohttp://education.Bureaux A Partager/faq/DRS511(This link is being provided for informational/educational purposes only.)THIS TEST WAS PERFORMED AT:[employer] [place] [phone] BLANCHARD MD SHERYL Titer TNP [facility] SHERYL Pattern TNP [facility] SHERYL TITER 2 (REF LAB) TNP [facility] SHERYL Pattern 2 TNP [facility] SHERYL TITER 3 [facility] SHERYL PATTERN 3 [facility] 10/24/2023 11:1 9 AM EDT 10/24/2023 11:19 AM EDT Generic External Data Provider LAB BLOOD ORDERAB LES Final Result Performing Organization Address [facility] Co de Phone Number [facility] [address] [place] [phone] * Cyclic Citrullinated Peptide (CCP) Antibody (IgG) (10/24/2023 11:19 AM EDT) Pathologist [facility] Cyclic Citrullinated Peptide <16 UNITS [facility] Comment:Reference RangeNegat travis: <20Weak Positive: 20-39Moderate Positive: 40-59Strong Positive: >59THIS TEST WAS PERFORMED AT:[employer] [place] [phone] BLANCHARD MD 10/24/2023 11:1 9 AM EDT 10/24/2023 11:19 AM EDT Generic External Data Provider LAB BLOOD ORDERAB LES Final Result Performing Organization Address [facility] de Phone Number [facility] [address] [place] [phone] * HIV-1/2 Antigen and Antibodies, Fourth Generation, with Reflexes (10/24/2023 11:19 AM EDT) [facility] HIV AB/AG Nonreactive Nonreactive [facility] Comment:HIV-1 p24 Ag and/or HIV-1/HIV-2 Ab not detected.A test result that is nonreactive does not exclude thepossibility of exposure to or infection with HIV-1 and/orHIV-2. Nonreactive results in this assay for individualswith prior exposure to HIV-1 and/or HIV-2 may be due toantigen and antibody levels that are below the limit ofdetection of this assay.The OnThe[employer] Platform[employer]ShareTracker HIV Ag/Ab Combo assay result andsupplemental assay results should be interpreted inconjunction with the patient's clinical presentation,history and other laboratory results. If the results areinconsistent with clinical evidence, additional testing issuggested to confirm the result. 10/24/2023 11:1 9 AM EDT 10/24/2023 11:19 AM EDT Generic External Data Provider LAB BLOOD ORDERAB LES Final Result Performing Organization Address [facility] Co de Phone Number [facility] [address] [place] [phone] * Hepatitis Panel, General (10/24/2023 11:19 AM EDT) Pathologist [facility] Hepatitis A IgM Nonreactive Nonreactive [facility] Comment:IgM antibodies to PITTS V not detected; does not exclude earlyacute or recovered HAV infection. ~Hepatitis B Surface Antibody REACTIVE Nonreactive [facility] Comment:REACTIVE: > 11.99 mI U/mL Hepatitis B Core Antibody Reactive Nonreactive [facility] Comment:Presumptive evidence of anti-HBc. Hepatitis C Antibody Nonreactive Nonreactive [facility] Comment:Antibodies to HCV no t detected; does not exclude early acuteHCV infection. Hepatitis B Surface Ag Negative Negative [facility] 10/24/2023 11:1 9 AM EDT 10/24/2023 11:19 AM EDT Radario External Data Provider LAB BLOOD ORDERAB LES Final Result Performing Organization Address [facility] de Phone Number [facility] [address] [place] [phone] * T-SPOT??.TB (10/24/2023 11:19 AM EDT) Pathologist [facility] T Spot TB Negative Negative [facility] Comment:A negative test resu lt [...] as aquantitative test. TS PANEL A 0 [facility] TS PANEL B 0 [facility] Negative Control Passed [facility] Positive Control Passed [facility] Comment:For additional infor matumair, please refer tohttp://education.InteraXon/faq/RGN885(This link is being provided for informational/educational purposes only.)THIS TEST WAS PERFORMED AT:[employer] [id number] [place] [phone] DU MD,PHD 10/24/2023 11:1 9 AM EDT 10/24/2023 11:19 AM EDT us Generic External Data Provider LAB BLOOD ORDERAB LES Final Result Performing Organization Address City/[facility]/ZIP Co de Phone Number [facility] [address] [place] [phone] * Sed Rate by Modified Vikergren (10/24/2023 11:19 AM EDT) Erythrocyte Sedimentation Rate 7 0 - 15 MM/HR [facility] Comment:Patients with polycy themia and many hemoglobin abnormalitiesmay have depressed sed rates whereas patients with anemiamay have elevated sed rates. 10/24/2023 11:1 9 AM EDT 10/24/2023 11:19 AM EDT us Generic External Data Provider LAB BLOOD ORDERAB LES Final Result Performing Organization Address [facility]/ZIP Co de Phone Number [facility] [address] [place] [phone] * C-reactive Protein (10/24/2023 11:19 AM EDT) C Reactive Protein 0.16 < or = 0.50 mg/dL [facility] 10/24/2023 11:1 9 AM EDT 10/24/2023 11:19 AM EDT us Generic External Data Provider LAB BLOOD ORDERAB LES Final Result [facility] [address] [place] [phone] * (ABNORMAL) Comprehensive Metabolic Panel (10/24/2023 11:19 AM EDT) Sodium 140 135 - 145 mmol/L [facility] Potassium 3.7 3.3 - 5.1 mmol/L [facility] Chloride 107 96 - 108 mmol/L [facility] Carbon Dioxide 28 22 - 29 mmol/L [facility] Anion Gap 9(L) 12 - 20 [facility] Urea Nitrogen (BUN) 18(H) 9 - 16 mg/dL [facility] Creatinine, Serum 0.99 0.5 - 1.4 mg/dL [facility] Estimated Glomerular Filt Rate >60 [facility] Comment:NOTE: For -Am erican individuals, multiply the result by 1.210.Chronic Kidney Disease: Estimated GFR < 60 mL/min/1.76g4Pkxczv Kidney Disease: Estimated GFR < 15 mL/min/1.73m2 Glucose 105 60 - 115 mg/dL [facility] Calcium 11.3(H) 8.4 - 10.2 mg/dL [facility] Bilirubin, Total 0.5 0.0 - 1.0 mg/dL [facility] Aspartate Amino Transferase 28 5 - 37 U/L [facility] Alanine Aminotransferase 22 0 - 40 U/L [facility] Total Protein 7.8 6.5 - 8.0 g/dL [facility] Albumin Level 4.5 3.5 - 5.0 g/dL [facility] Alkaline Phosphatase 74 39 - 117 U/L [facility] 10/24/2023 11:1 9 AM EDT 10/24/2023 11:19 AM EDT us Generic External Data Provider LAB BLOOD ORDERAB LES Final Result Performing Organization Address [facility] Co de Phone Number [facility] [address] [place] [phone] * Rheumatoid Factor (10/24/2023 11:19 AM EDT) Rheumatoid Factor <13.0 <15.0 IU/mL [facility] 10/24/2023 11:1 9 AM EDT 10/24/2023 11:19 AM EDT us Generic External Data Provider LAB BLOOD ORDERAB LES Final Result Performing Organization Address [facility] Co sd Phone Number [facility] [address] [place] [phone] * Hemoglobin A1c (10/24/2023 11:19 AM EDT) Hemoglobin A1c 5.5 <6.0 % [facility] Comment:Hemoglobin A1C Refer ence Range Adults: 4.8 - 6.0 % Non diabetic: < 6.0 % Goal: < 7.0 %Additional Action Suggested: > 8.0 %Note: Hemoglobin A1c results are invalid for patients with abnormal amounts of HbF. Blood transfusions may impact the HbA1c concentration in the patient sample. Estimated Average Glucose 111 mg/dL [facility] Comment:eAG = Estimated ave rage glucose which is %A1C expressed asaverage glucose, using the formula of the V0A-FtuizucQnrrick Glucose study (ADAG), Diabetes Care, Vol.31,#8,Dec. 2007 10/24/2023 11:1 9 AM EDT 10/24/2023 11:19 AM EDT us Generic External Data Provider LAB BLOOD ORDERAB LES Final Result Performing Organization Address [facility]/ZIP Co de Phone Number [facility] [address] [place] [phone] * (ABNORMAL) CBC auto differential (10/24/2023 11:19 AM EDT) White Blood Count 4.4(L) 4.8 - 10.8 X10*3/uL [facility] Red Blood Count 4.15(L) 4.60 - 5.80 X10*6/uL [facility] Hemoglobin 12.4(L) 14.0 - 18.0 g/dl [facility] Hematocrit 37.7(L) 42.0 - 52.0 % [facility] Mean Corpuscular Volume 90.8 80.0 - 98.0 fL [facility] Mean Corpuscular Hemoglobin 29.9 27.0 - 33.0 pg [facility] Mean Corpuscular HGB Conc 32.9 31.0 - 36.0 g/dl [facility] Red Cell Distribution Width 12.7 11.0 - 16.0 % [facility] Platelet Count 277 160 - 400 X10*3/uL [facility] Mean Platelet Volume 10.3 9.4 - 12.4 fL [facility] Neutrophils Percent Auto 50.4 45 - 73 % [facility] Imm Gran Pct Auto 0.5(H) 0.0 - 0.4 % [facility] Lymphocytes Percent Auto 33.9 20 - 40 % [facility] Monocytes Percent Auto 10.0 2 - 11 % [facility] Eosinophils Percent Auto 4.3(H) 0 - 4 % [facility] Basophils Percent Auto 0.9 0 - 2 % [facility] NRBC Pct Auto 0.0 0.0 - 0.2 /100WBC [facility] Neutrophils Absolute Auto 2.2 2.0 - 8.3 x10*3/uL [facility] Imm Gran Abs Auto 0.02 0.00 - 0.03 X10*3/uL [facility] Lymphocytes Absolute Auto 1.5 1.2 - 4.9 X10*3/uL [facility] Monocytes Absolute Auto 0.4 0.1 - 1.2 X10*3/uL [facility] Eosinophils Absolute Auto 0.2 0.0 - 0.4 X10*3/uL [facility] Basophils Absolute Auto 0.0 0.0 - 0.2 X10*3/uL [facility] NRBC Abs Auto 0.000 0.0 - 0.012 X10*3/uL [facility] 10/24/2023 11:1 9 AM EDT 10/24/2023 11:19 AM EDT us Generic External Data Provider LAB BLOOD ORDERAB LES Final Result Performing Organization Address City/State/[facility] Co de Phone Number [facility] [address] [place] [phone] documented in this encounter Visit Diagnoses Not on filedocumented in this encounter Care Teams Fugitive Investigator Relationship Specialty Start Date End Date Estelle Cain ANP [address] [place] [address] PCP - General Family Medicine 12/26/21 07/13/23 Citlali Tee NP [address] [place] [address] PCP - General Family Medicine 07/14/23 documented as of this encounter
--- OUTSIDE RECORDS SUMMARY | 2024-09-22 10:23 | XMS_ITS | Encounter Summary ---
Author Organization [facility] Address [id number] [place] [id number] Care Team Providers Care Pricing Actuary Name Role Phone Physician, Pcp Unknown Primary Care Provider Rupali vailable Reason for Visit * Reason Comments Chest Pain Encounter Details Date Type Department Care Team (Late st Contact Info) Description 09/21/2024 9:38 AM EDT - 09/21/2024 11:40 AM EDT Emergency [facility] Emergency [address] [place] [phone] Lei Mario MD [address] [address] Chest pain, unspecified type (Primary Dx); Bradycardia [...] documented in this encounter Plan of Treatment Not on file documented as of this encounter Procedures Procedure Name Priority Date/Time Associated Diagnosis Comments XR CHEST 2 VIEWS STAT 09/21/2024 11:0 5 AM EDT TROPONIN I HIGH SENSITIVITY STAT [...] EDT documented in this encounter Results * XR Chest 2 Views (09/21/2024 [...] Signed Date: 09/21/2024 14:12 ET Workstation ID: [id number] Transcribed By: Self Edit Transcribed Date: 09/21/2024 [...] Signed Date: 09/21/2024 14:12 ET Workstation ID: [id number] Transcribed By: Self Edit Transcribed Date: 09/21/2024 14:08 ET us Lei Mario MD IMG XR PROCEDURES Final Res ult * D-dimer, quantitative (09/21/2024 10:25 AM EDT) [facility] D-Dimer, Quant (D-DU) <150 <=230 ng/mL DDU LAB COAGULATION METHOD 09/21/2024 11:11 AM EDT [facility] Blood Venous blood specimen / Unknown Venipuncture / Unknown 09/21/2024 10:25 AM EDT 09/21/2024 10:42 AM EDT [facility] - 09/21/2024 11:11 AM EDT D-Dimer <230 ng/mL (D-Dimer units) is the threshold for exclusion of DVT/PE. D-Dimer may be elevated in: Critically ill, severely infected, trauma patients, DIC, acute CVA, acute IL, unstable angina, AF, old age, , and smoking. D-Dimer may be decreased with: Initiation of heparin therapy and oral anticoagulants. Lei Mario MD LAB BLOOD ORDERABLES Final Result Performing Organization Address City/State/[facility] Co de Phone Number [facility] [address] [place] [address], [place] [phone] * Troponin I high sensitivity (09/21/2024 10:25 AM EDT) [facility] High Sensitivity Troponin I 8 <=79 ng/L LAB CHEMISTRY METHOD 09/21/2024 11:14 AM EDT [facility] Blood Venous blood specimen / Unknown Venipuncture / Unknown 09/21/2024 10:25 AM EDT 09/21/2024 10:42 AM EDT [facility] - 09/21/2024 11:14 AM EDT High levels of biotin in samples may falsely decrease hsTroponin values. ??Use caution when interpreting hsTroponin results in patients taking biotin who exhibit renal impairment (eGFR <60) or in patients taking more than 20 mg/day of biotin. Lei Mario MD LAB BLOOD ORDERABLES Final Result Performing Organization Address City/State/[facility] de Phone Number [facility] [address] [place] [address], [place] [phone] * ECG 12 lead (09/21/2024 9:54 AM EDT) Pathologist [facility] Ventricular Rate ECG 55 BPM GEMUSE Atrial Rate 55 BPM GEMUSE P-R Interval 184 ms GEMUSE QRS Duration 92 ms GEMUSE Q-T Interval 426 ms GEMUSE QTc 407 ms GEMUSE P Wave [place] 40 degrees GEMUSE R [place] 25 degrees GEMUSE T [place] -2 degrees GEMUSE ECG Interpretation Sinus bradycardia with Premature atrial complexes Nonspecific ST and T wave abnormality Abnormal ECG When compared with ECG of 21-SEP-2024 07:36, (unconfirmed) Non-specific change in ST segment in Lateral leads Nonspecific T wave abnormality has replaced inverted T waves in Lateral leads Confirmed by Arlene DEL TORO JOHN ([id number]) on 09/21/2024 7:04:54 PM GEMUSE 09/21/2024 9:54 AM EDT 09/21/2024 7:04 PM EDT us Lei Mario MD ECG ORDERABLES Final Resul t Performing Organization Address [facility] de Phone Number MATEO * (ABNORMAL) CBC auto differential (09/21/2024 7:48 AM EDT) Pathologist [facility] WBC 5.5 4.8 - 10.8 K/mcL LAB HEMETOLOGY METHOD 09/21/2024 8:21 AM EDT [facility] RBC 4.30(L) 4.50 - 5.50 M/mcL LAB HEMETOLOGY METHOD 09/21/2024 8:21 AM EDT [facility] Hemoglobin 12.5(L) 13.5 - 17.5 g/dL LAB HEMETOLOGY METHOD 09/21/2024 8:21 AM EDT [facility] Hematocrit 40.6(L) 42.0 - 54.0 % LAB HEMETOLOGY METHOD 09/21/2024 8:21 AM [facility] MCV 93.8 79.0 - 98.0 FL LAB HEMETOLOGY METHOD 09/21/2024 8:21 AM [facility] MCH 28.9 27.0 - 32.0 pcg LAB HEMETOLOGY METHOD 09/21/2024 8:21 AM [facility] MCHC 30.8(L) 32.0 - 37.0 g/dL LAB HEMETOLOGY METHOD 09/21/2024 8:21 AM [facility] RDW 12.9 11.0 - 15.0 % LAB HEMETOLOGY METHOD 09/21/2024 8:21 AM [facility] Platelets 230 130 - 400 K/mcL LAB HEMETOLOGY METHOD 09/21/2024 8:21 AM [facility] MPV 10.5 7.0 - 11.0 FL LAB HEMETOLOGY METHOD 09/21/2024 8:21 AM [facility] NRBC 0.0 <1.0 % LAB HEMETOLOGY METHOD 09/21/2024 8:21 AM [facility] NRBC Absolute 0.00 <0.10 K/mcL LAB HEMETOLOGY METHOD 09/21/2024 8:21 AM [facility] Neutrophils Relative 51.1 % LAB HEMETOLOGY METHOD 09/21/2024 8:21 AM [facility] Lymphocytes Relative 36.5 % LAB HEMETOLOGY METHOD 09/21/2024 8:21 AM [facility] Monocytes Relative 8.1 % LAB HEMETOLOGY METHOD 09/21/2024 8:21 AM [facility] Eosinophils Relative 3.4 % LAB HEMETOLOGY METHOD 09/21/2024 8:21 AM [facility] Basophils Relative 0.5 % LAB HEMETOLOGY METHOD 09/21/2024 8:21 AM EDT [facility] Immature Granulocytes Relative 0.4 % LAB HEMETOLOGY METHOD 09/21/2024 8:21 AM EDT [facility] Neutrophils Absolute 2.83 1.50 - 7.00 K/mcL LAB HEMETOLOGY METHOD 09/21/2024 8:21 AM EDT [facility] Lymphocytes Absolute 2.02 1.00 - 5.00 K/mcL LAB HEMETOLOGY METHOD 09/21/2024 8:21 AM EDT [facility] Monocytes Absolute 0.45 0.20 - 1.00 K/mcL LAB HEMETOLOGY METHOD 09/21/2024 8:21 AM EDT [facility] Eosinophils Absolute 0.19 0.00 - 0.50 K/mcL LAB HEMETOLOGY METHOD 09/21/2024 8:21 AM EDT [facility] Basophils Absolute 0.03 0.00 - 0.20 K/mcL LAB HEMETOLOGY METHOD 09/21/2024 8:21 AM T [facility] Immature Granulocytes Absolute 0.02 0.00 - 0.03 K/mcL LAB HEMETOLOGY METHOD 09/21/2024 8:21 AM [facility] Blood Venous blood specimen / Unknown Venipuncture / Unknown 09/21/2024 7:48 AM EDT 09/21/2024 8:14 AM EDT us Lei Mario MD LAB BLOOD ORDERABLES Final Result [facility] [address] [place] [address], * B-type natriuretic peptide (09/21/2024 7:48 AM EDT) BNP 27 <=100 pcg/mL LAB CHEMISTRY METHOD 09/21/2024 8:54 AM EDT [facility] Blood Venous blood specimen / Unknown Venipuncture / Unknown 09/21/2024 7:48 AM EDT 09/21/2024 8:14 AM EDT Lei Mario MD LAB BLOOD ORDERABLES Final Result Performing Organization Address [facility]/ZIP Co de Phone Number [facility] [address] [place] [address], [place] [phone] * Magnesium (09/21/2024 7:48 AM EDT) Magnesium 2.2 1.9 - 2.6 mg/dL LAB CHEMISTRY METHOD 09/21/2024 8:46 AM EDT [facility] Blood Venous blood specimen / Unknown Venipuncture / Unknown 09/21/2024 7:48 AM EDT 09/21/2024 8:14 AM EDT Lei Mario MD LAB BLOOD ORDERABLES Final Result Performing Organization Address [facility]/ZIP Co de Phone Number [facility] [address] [place] [address], [place] [phone] * Lipase (09/21/2024 7:48 AM EDT) Lipase 28 13 - 75 unit/L LAB CHEMISTRY METHOD 09/21/2024 8:46 AM EDT [facility] Blood Venous blood specimen / Unknown Venipuncture / Unknown 09/21/2024 7:48 AM EDT 09/21/2024 8:14 AM EDT Lei Mario MD LAB BLOOD ORDERABLES Final Result [facility] [address] [place] [address], [place] [phone] * (ABNORMAL) Comprehensive metabolic panel (09/21/2024 7:48 AM EDT) Sodium 136 133 - 145 mmol/L LAB CHEMISTRY METHOD 09/21/2024 8:46 AM [facility] Potassium 3.9 3.5 - 5.5 mmol/L LAB CHEMISTRY METHOD 09/21/2024 8:46 AM [facility] Chloride 106 96 - 110 mmol/L LAB CHEMISTRY METHOD 09/21/2024 8:46 AM [facility] CO2 24 21 - 32 mmol/L LAB CHEMISTRY METHOD 09/21/2024 8:46 AM [facility] Anion Gap 6 3 - 11 LAB CHEMISTRY METHOD 09/21/2024 8:46 AM [facility] Glucose 118(H) 70 - 100 mg/dL LAB CHEMISTRY METHOD 09/21/2024 8:46 AM [facility] BUN 17 5 - 25 mg/dL LAB CHEMISTRY METHOD 09/21/2024 8:46 AM [facility] Creatinine 1.10 0.70 - 1.30 mg/dL LAB CHEMISTRY METHOD 09/21/2024 8:46 AM [facility] eGFR 74 >=60 mL/min/1. 73m2 LAB CHEMISTRY METHOD 09/21/2024 8:46 AM [facility] Comment:Calculation based on the Chronic Kidney Disease Epidemiology Collaboration (CKD-EPI) equation refit without adjustment for race. BUN/Creatinine Ratio 15.5 LAB CHEMISTRY METHOD 09/21/2024 8:46 AM [facility] Calcium 11.2(H) 8.5 - 10.5 mg/dL LAB CHEMISTRY METHOD 09/21/2024 8:46 AM [facility] AST (SGOT) 29 10 - 42 unit/L LAB CHEMISTRY METHOD 09/21/2024 8:46 AM [facility] ALT (SGPT) 31 10 - 60 unit/L LAB CHEMISTRY METHOD 09/21/2024 8:46 AM EDT [facility] Alkaline Phosphatase 107 42 - 121 unit/L LAB CHEMISTRY METHOD 09/21/2024 8:46 AM EDT [facility] Total Protein 8.3(H) 6.0 - 8.0 g/dL LAB CHEMISTRY METHOD 09/21/2024 8:46 AM EDT [facility] Albumin 4.6 3.2 - 5.0 g/dL LAB CHEMISTRY METHOD 09/21/2024 8:46 AM EDT [facility] Total Bilirubin 0.4 0.0 - 1.4 mg/dL LAB CHEMISTRY METHOD 09/21/2024 8:46 AM EDT [facility] Blood Venous blood specimen / Unknown Venipuncture / Unknown 09/21/2024 7:48 AM EDT 09/21/2024 8:14 AM EDT Lei Mario MD LAB BLOOD ORDERABLES Final Result [facility] [address] [place] [address], [place] [phone] * Troponin I high sensitivity (09/21/2024 7:48 AM EDT) High Sensitivity Troponin I 11 <=79 ng/L LAB CHEMISTRY METHOD 09/21/2024 8:47 AM EDT [facility] Blood Venous blood specimen / Unknown Venipuncture / Unknown 09/21/2024 7:48 AM EDT 09/21/2024 8:14 AM EDT Narrative [facility] - 09/21/2024 8:47 AM EDT High levels of biotin in samples may falsely decrease hsTroponin values. ??Use caution when interpreting hsTroponin results in patients taking biotin who exhibit renal impairment (eGFR <60) or in patients taking more than 20 mg/day of biotin. us Lei Mario MD LAB BLOOD ORDERABLES Final Result [facility] [address] [place] [address], [place] [phone] * ECG 12 lead (09/21/2024 7:36 AM EDT) Ventricular Rate ECG 60 BPM GEMUSE Atrial Rate 60 BPM GEMUSE P-R Interval 170 ms GEMUSE QRS Duration 86 ms GEMUSE Q-T Interval 404 ms GEMUSE QTc 404 ms GEMUSE P Wave [place] 41 degrees GEMUSE R [place] 32 degrees GEMUSE T [place] -96 degrees GEMUSE ECG Interpretation Sinus rhythm with Premature atrial complexes T wave abnormality, consider lateral ischemia Abnormal ECG When compared with ECG of 02-DEC-2019 19:40, Inverted T waves have replaced nonspecific T wave abnormality in Lateral leads Confirmed by Arlene DEL TORO JOHN ([id number]) on 09/21/2024 6:59:09 PM GEMUSE 09/21/2024 7:36 AM EDT 09/21/2024 6:59 PM EDT Lei Mario MD ECG ORDERABLES Final Resul t GEMUSE documented in this encounter Visit Diagnoses Diagnosis Chest pain, unspecified type- Primary Bradycardia Other specified cardiac dysrhythmias documented in this encounter Care Teams Pricing Actuary Relationship Specialty Start Date End Date Physician, Pcp Unknown PCP - General 09/21/24 documented as of this encounter
--- OUTSIDE RECORDS SUMMARY | 2024-09-22 10:23 | XMS_ITS | Encounter Summary ---
Author Organization [employer] Address [address] [facility] [address] [place] [address] Care Team Providers Care Restaurant Kitchen And Service Manager Name Role Phone Citlali Tee NP Primary Care Provider [phone] Reason for Visit * Reason Comments Med Refill Encounter Details Date Type Department Care Team (Late st Contact Info) Description 05/23/2024 Refill [facility] [address] [place], [place] [phone] Citlali Tee NP [address] [place], [place] [phone] Essential hypertension; Primary hypertension; Other hyperlipidemia Social [...] documented as of this encounter Care Teams Restaurant Kitchen And Service Manager Relationship Specialty Start Date End Date Citlali Tee NP [address] [place] [id number] PCP - General Family Medicine 07/14/23 documented as of this encounter
--- OUTSIDE RECORDS SUMMARY | 2024-09-22 10:23 | XMS_ITS | Encounter Summary ---
Author Organization [employer] Address [address] [facility] [address] [place] [address] Care Team Providers Care Recreation Coordinator Name Role Phone Citlali Tee JANE Primary Care Provider [phone] Encounter Details Date Type Department Care Team (Late st Contact Info) Description 12/26/2023 Orders Only [facility] [address] [place] [address] Provider, MD Claude Social History Tobacco Use [...] documented as of this encounter Care Teams Recreation Coordinator Relationship Specialty Start Date End Date Citlali Tee NP [address] [place] [address] PCP - General Family Medicine 07/14/23 documented as of this encounter
[2024-09-22 10:42] LABS: Erythrocyte Sedimentation Rate 6 MM/HR (0-15)
[2024-09-22 11:27] LABS: Alanine Aminotransferase 28 U/L (0-40); Albumin Level 4.3 g/dL (3.5-5.0); Alkaline Phosphatase 92 U/L (39-117); Anion Gap 10 (12-20); Aspartate Amino Transferase 47 U/L (5-37); Bilirubin Total 0.3 mg/dL (0.0-1.0); Blood Urea Nitrogen 11 mg/dL (9-16); C Reactive Protein 0.12 mg/dL (< or = 0.50); Calcium 10.1 mg/dL (8.4-10.2); Carbon Dioxide 25 mmol/L (22-29); Chloride 109 mmol/L (96-108); Estimated Glomerular Filt Rate > 60; Glucose Random 120 mg/dL (60-115); Potassium 3.8 mmol/L (3.3-5.1); Sodium 140 mmol/L (135-145); Total Protein 7.5 g/dL (6.5-8.0)
== END 2024-09-22 09:10 | disposition home or self-care (01) ==
LOC: HO.10HDL 09:09
PROVIDERS: Visit Provider Student in an Organized Health Care Education/Training Program
DX: M06.9 Rheumatoid arthritis, unspecified (principal); Z79.631 Long term (current) use of antimetabolite agent
CPT/HCPCS: 36415; 80053; 85025; 85652; 86140

== ENCOUNTER 2024-09-30 12:19 | Outpatient (AMB) | payer MEDICARE, MEDICAID, SELFPAY ==
--- OUTSIDE RECORDS SUMMARY | 2024-09-30 12:21 | XMS_ITS | Encounter Summary ---
Author Organization [employer] Address [address] [facility] [address] [place] [address] Care Team Providers Care Warehouse Handler Name Role Phone Citlali Tee NP Primary Care Provider [phone] Reason for Visit * Reason Onset Date Comments Med Refill 09/06/2024 Encounter Details Date Type Department Care Team (Late st Contact Info) Description 09/06/2024 Refill [facility] [address] [place], [place] [phone] Sarah Mukherjee NP [address] [place], [place] [phone] Arthralgia of both hands Social History Tobacco [...] documented as of this encounter Care Teams Warehouse Handler Relationship Specialty Start Date End Date Citlali Tee NP [address] [place] [phone] PCP - General Family Medicine 07/14/23 documented as of this encounter
--- NOTE | 2024-09-30 12:31 | A.OFFVIS_ITS ---
Vital Signs 09/30/24 12:35 Height 5 ft 5 in Weight 191 lb 9.307 oz BMI 31.9 BP 128/68 Blood Pressure Location Rt brachial Position Sitting Pulse 71 Pulse Source Pulse Oximeter Pulse Oximetry (%) 98 Oxygen Delivery Method Room Air Intake Visit Reasons: RA Intake Note: Patient presents for follow up on RA and lab review. Allergies ibuprofen [From MOTRIN] Allergy (Intermediate, Verified 09/30/24 12:38) RASH latex Allergy (Intermediate, Verified 09/30/24 12:38) Rash Medication List - Last Reconciled 09/30/24 by Cher Tellez MD amlodipine 10 mg PO DAILY atorvastatin 10 mg PO DAILY cholecalciferol (vitamin D3) 50 mcg PO DAILY 1 month folic acid 1 mg PO DAILY losartan 100 mg PO DAILY methotrexate sodium 15 mg (6 x 2.5 mg) PO QWEEK 90 days naproxen 500 mg PO BID HPI Comments Details: Patient is a 64 y.o. male with HTN, HLD, bilateral carpal tunnel syndrome, hyperparathyroidism, and seronegative RA Interval History: Patient last seen 03/02/[address] Moraes. At that time he was following up for seronegative RA. He was non compliant with his methotrexate and missed appointments Currently, Patient is not on any medication. Completed the medication last set of methotrexate but did not request refills and so has been off Mtx for the past 5 months Complaining of pain to the hips, shoulders and hands. Also noting stiffness in the hands in the AM when he wakes that improves as the day progresses Rheumatologic History: Initial history: This is a 63-year-old male with history of rheumatoid arthritis who presents as a new patient. Patient states that around 15 years ago he woke up 1 day with abrupt onset of bilateral hip pain soon after he started having pain swelling and stiffness of his fingers. He was evaluated at the [facility]. He was diagnosed with rheumatoid arthritis and started on methotrexate and prednisone with good improvement. After some time the prednisone was discontinued and methotrexate continued. Patient was on methotrexate for a total of 2-3 years but he felt better overall and stopped the treatment. Over the years he was feeling reasonably well until about 2-3 years ago when he started having recurrent bilateral hip stiffness as well as pain and stiffness of his hands, fingers, right shoulder. He denies any other symptoms. Denies any skin rashes, denies fevers, shortness of breath, weight loss. Denies any history of DVT/PE. He is unaware of any family history of an autoimmune rheumatic disease. Denies history of psoriasis. 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 - [employer] Review of Systems Const Details: Review of Systems Constitutional: Denies fever, chills, weight loss ENT: Denies vision changes, eye pain or eye redness, dental caries, dry mouth GI: Denies nausea, vomiting, diarrhea, abdominal pain, change in BM Pulm: Denies SOB, TALBOT, hemoptysis, wheezing Cards: Denies chest pain, palpitations Skin: Denies Raynaud's, rash, nail changes, photosensitivity, HEDDLER TIER: Denies headaches, weakness, paresthesias, recurrent falls MSK: as per HPI All other systems reviewed and are unremarkable except noted above Physical Exam Vital signs reviewed Physical Examination CONSTITUITIONAL Patient alert and cooperative. Well appearing and in no apparent painful distress HEENT Conjunctiva and sclera clear. ?Pupils equal round and reactive to light. ?No lymphadenopathy. ? CHEST/RESPIRATORY SYSTEM Normal respiratory effort and able to speak in complete sentences. ?Clear to auscultation bilaterally. ?No crackles, rales, rhonchi, wheezes heard. CARDIAC SYSTEM Regular rate and rhythm. ?S1 and S2 heard no murmurs. ?Radial pulses intact bilaterally MSK Hands: ?Able to make a fist on the left but not able to make full fist on the right. TTP MCPs 2-5 bilaterally and TTP PIPs 2-5 bilaterally Wrists: ?Decreased ROM of the right wrist with swelling and TTP. Good ROM of the left wrist and no swelling noted but TTP Elbows: Full range of motion without pain. No tenderness, weakness, swelling, increased warmth or erythema. Shoulders: Full range of active range of motion without pain. No tenderness, weakness, swelling, increased warmth or erythema. Hips: Full range of motion without pain. Hip bursa: No tenderness to palpation Knees: ?Full range of motion. ?No tenderness, swelling, increased warmth or erythema.?No effusion but bilateral crepitations felt Ankles: Full range of motion. ?No tenderness, swelling, increased warmth or erythema.? Feet: ?Positive squeeze test Tender points:?No tenderness to palpation of the bilateral trapezius, supraspinatus, greater trochanters, anterior costochondral junctions, bilateral gluteal areas, bilateral suboccipital muscle insertions SKIN Skin intact without rashes. Results Reviewed Results Reviewed: Laboratory Tests 07/27/24 09/22/24 09:40 09:12 WBC 4.5 L RBC 4.12 L Hgb 12.3 L Hct 37.4 L Plt Count 250 ESR 6 Sodium 140 Potassium 3.8 Chloride 109 H Carbon Dioxide 25 BUN 11 Creatinine 0.90 Calcium 10.1 Total Bilirubin 0.3 AST 47 H ALT 28 Alkaline Phosphatase 92 C-Reactive Protein 0.12 Total Protein 7.5 25-OH Vitamin D Total 26.3 L Rheumatology Labs 10/24/23 11:19 Rheumatoid Factor < 13.0 Cycl Citrul Peptide IgG <16 SHERYL Screen NEGATIVE XR Bilateral Hand/Wrist 10/2023 FINDINGS: No acute fracture or subluxation. Joint space narrowing, bony productive changes and subcortical cystic changes in the left greater than right first carpometacarpal joints, subtle erosions might be present as well. Equivocal focal marginal erosion along the ulnar surface of the distal aspect of the proximal phalanx of the second digit on the right hand. Mild multifocal joint space narrowing and marginal osteophytes along the bilateral interphalangeal joints. Punctate radiopacity overlying the soft tissues of the distal aspect of the third digit on the right hand. Mild diffuse soft tissue thickening bilaterally. IMPRESSION: 1. No acute fracture or subluxation. 2. Moderate osteoarthritis of the left greater than right first carpometacarpal joints, possibly a combination of degenerative and inflammatory etiology. 3. Equivocal marginal erosion along the ulnar surface of the distal aspect of the proximal phalanx of the second digit on the right hand. 4. Punctate soft tissue density in the distal aspect of the third digit of the right hand. 5. Diffuse bilateral soft tissue thickening. DEXA 04/2024 FINDINGS: LEFT FEMUR, NECK: BMD 1.143 g/cm2, Z-score 0.5, T-score 0.6, normal. LEFT FEMUR, TOTAL: BMD 1.348 g/cm2, Z-score 1.3, T-score 1.7, normal. AP SPINE L1-L4: BMD 1.253 g/cm2, Z-score -0.1, T-score 0.3, normal. LEFT FOREARM RADIUS 33%: BMD 1.065 g/cm2, Z-score 0.7, T-score 0.8, normal. Assessment & Plan Assessment & Plan (1) Rheumatoid arthritis: Comment: dx approx 2008 ttt MTX + prednisone for 2-3 years then lost to follow up MTX restarted 10/2023 Code(s): M06.9 - Rheumatoid arthritis, unspecified Category: Medical Qualifiers: Rheumatoid arthritis location: multiple sites Rheumatoid factor presence: unspecified presence Qualified Code(s): M06.9 - Rheumatoid arthritis, unspecified Plan: #Seronegative RA Patient is a 64 y.o. male with seronegative RA here today for follow up. Patient with active RA disease on exam on a background of not being on methotrexate. His a picture is also complicated by polyarticular osteoarthritis however we need to treat his rheumatoid arthritis 1st and see what residual issues, about from his osteoarthritis Plan - Methotrexate 15mg weekly PO - Folic acid 1mg daily - RTC 3 months - Labs before visit: CBC, CMP, ESR, CRP, Hepatitis panel and T spot (2) retirement methotrexate user: Code(s): Z79.631 - terminal makeup operator (current) use of antimetabolite agent Category: Medical Plan: #Long-term Current Use of Methotrexate Discussed with patient the benefits and risks of methotrexate for managing their rheumatic condition Benefits include reduced pain, reduced mortality, maintenance of remission and reduction of flares Risks include oral ulcers, photosensitivity, hepatotoxicity, hematologic toxicity, pneumonitis, flu-like symptoms (especially day after administration), nodulosis, lymphomas ? Limit alcohol and avoid Bactrim ? Monitoring: ?CBC, BMP, LFTs every 3-4 months and hepatitis serologies as needed Plan I spent 33 minutes reviewing the record and labs, taking a history, examining the patient, discussing the treatment plan, ordering diagnostic work up and documenting in the medical record Medications: Changed From methotrexate sodium 20 mg (8 x 2.5 mg) PO QWEEK 96 tabs 0RF M06.9 - Rheumatoid arthritis, unspecified To methotrexate sodium 15 mg (6 x 2.5 mg) PO QWEEK 90 days 78 tabs 1RF M06.9 - Rheumatoid arthritis, unspecified Refilled folic acid 1 mg PO DAILY 90 tabs 1RF M06.9 - Rheumatoid arthritis, unspecified Coding Level of Care Code Est Pt Level 4 (04591) Complex EM visit Add On G2211 Diagnoses Rheumatoid arthritis involving multiple sites, unspecified whether rheumatoid factor present M06.9 Rheumatoid arthritis location: multiple sites Rheumatoid factor presence: unspecified presence terminal makeup operator methotrexate user Z79.631
[2024-09-30 12:35] VITALS: BP 128/68; PULSE 71; O2SAT 98; BMI 31.9
== END 2024-09-30 13:02 | disposition home or self-care (01) ==
LOC: HO.RHE 12:19
PROVIDERS: PCP Nurse Practitioner Family; Visit Provider Student in an Organized Health Care Education/Training Program
DX: M06.9 Rheumatoid arthritis, unspecified (principal); Z79.631 Long term (current) use of antimetabolite agent
CPT/HCPCS: 99214; G2211

== ENCOUNTER → 2024-09-30 12:19 | Outpatient (BNVA) | payer MEDICARE, MEDICAID, SELFPAY | PROVIDERS: PCP Nurse Practitioner Family; Visit Provider Student in an Organized Health Care Education/Training Program | DX: M06.9 Rheumatoid arthritis, unspecified (principal); Z79.631 Long term (current) use of antimetabolite agent | CPT/HCPCS: 99212 ==

== ENCOUNTER 2024-10-28 14:11 | Outpatient (REF) | payer MEDICARE, MEDICAID, SELFPAY ==
--- NOTE | 2024-10-28 14:13 | EMG_ITS ---
Chief complaint: Left hand numbness, since March 2024 Previous left CTR 3 years ago Reason for referral: Evaluate for recurrent Carpal Tunnel Syndrome Referred by: Dr. Davis Procedure done: Left upper extremity NCS/EMG Precautions and/or limitations: None The limb temperature was monitored continuously and remained between 32-36 degrees C during the performance of the NCS. Ulnar motor NCS was performed with moderate elbow flexion between 70-90 degrees, with across-elbow distance of 10 cm. Nerve Conduction Studies Anti Sensory Summary Table ?Stim Site NR Onset (ms) Norm Onset (ms) Peak (ms) Norm Peak (ms) O-P Amp (?V) Norm O-P Amp Site1 Site2 Delta-0 (ms) Dist (cm) Roman (m/s) Norm Roman (m/s) Left DorsCutan Anti Sensory (Dorsum 5th MC) Wrist NR Wrist Dorsum 5th MC 0.0 Left Median Anti Sensory (2nd Digit) Wrist ? 5.1 6.2 <3.6 2.3 >10 Wrist 2nd Digit 5.1 14.0 27 Left Radial Anti Sensory (Thumb) Forearm ? 1.8 2.6 <3.1 9.3 Forearm Thumb 1.8 0.0 Left Ulnar Anti Sensory (5th Digit) Wrist ? 4.4 5.2 <3.7 15.6 >15.0 Wrist 5th Digit 4.4 14.0 32 Motor Summary Table ?Stim Site NR Onset (ms) Norm Onset (ms) O-P Amp (mV) Norm O-P Amp iAmp (mV) Amp (1st) (%) Site1 Site2 Delta-0 (ms) Dist (cm) Roman (m/s) Norm Roman (m/s) Left Median Motor (Abd Poll Brev) Wrist ? 8.3 <3.9 5.7 >4.5 7.7 100.0 Elbow Wrist 4.6 22.0 48 >45 Elbow ? 12.9 4.9 6.6 86.0 Left Ulnar Motor (Abd Dig Minimi) Wrist ? 2.3 <3.0 4.8 >5 6.0 100.0 B Elbow Wrist 4.0 20.0 50 >45 B Elbow ? 6.3 2.5 3.1 52.1 A Elbow B Elbow 1.4 10.0 71 >45 A Elbow ? 7.7 4.4 5.5 91.7 Left UlnarH Motor (FDI) Wrist ? 3.8 <3.0 7.5 >5 9.0 100.0 B Elbow Wrist 3.5 20.0 57 >45 B Elbow ? 7.3 7.1 8.6 94.7 A Elbow B Elbow 1.5 10.0 67 >45 A Elbow ? 8.8 7.1 8.5 94.7 EMG ?Side Muscle Nerve Root Ins Act Fibs Psw Amp Dur Poly Recrt Int Pat Comment Left 1stDorInt Ulnar C8-T1 Nml Nml Nml Incr Incr 0 Nml Complete Left Biceps Musculocut C5-6 Nml Nml Nml Nml Nml 0 Nml Complete Left Triceps Radial C6-7-8 Nml Nml Nml Nml Nml 0 Nml Complete Left Deltoid Axillary C5-6 Nml Nml Nml Nml Nml 0 Nml Complete Left FlexCarpiUln Ulnar C8,T1 Nml Nml Nml Nml Nml 0 Nml Complete Paraspinal EMG ?Side Muscle Nerve Root Ins Act Fibs Psw Comment Left Cervical Upper Rami Nml Nml Nml Left Cervical Mid Rami Nml Nml Nml Left Cervical Lower Rami Nml Nml Nml FINDINGS: Left median motor nerve showed prolonged distal latency, normal amplitude and normal conduction velocity. Left ulnar motor nerve, recording at ADM, showed normal distal latency, small amplitude and normal conduction velocity. No conduction block or slowing across elbow. Left ulnar motor nerve, recording at FDI, showed prolonged distal latency, normal amplitude and normal conduction velocity. Again no significant conduction block across elbow. Left median sensory nerve showed prolonged peak latency and small amplitude. Left ulnar sensory nerve showed prolonged peak latency. Left dorsal ulnar cutaneous sensory nerve showed absent response. All other nerves tested were within normal. Concentric needle EMG was performed in selected muscles of the left upper extremity and cervical paraspinals. Study revealed signs of electric abnormalities as shown in the table above. Left FDI showed increased duration and amplitude. No denervation on cervical paraspinals. IMPRESSION: 1. This is an abnormal study. 2. There is electrodiagnostic evidence for chronic left ulnar neuropathy. There is no chloé conduction block across the elbow. But an abnormal DUCS suggests that pathology is proximal, possibly at the elbow. 3. There is electrodiagnostic evidence for left median neuropathy at the wrist, consistent with Carpal Tunnel Syndrome. 4. There is no electrodiagnostic evidence for brachial plexopathy or cervical radiculopathy. CLINICAL COMMENT: History of previous carpal tunnel release, left, more than 3 years ago. No past (left side) EMG available for my review. Thank you for your kind referral. Nilda Olivo MD, NICOLA Board Certified, [place] [employer] and [employer] (ABPMR) Board Certified, [place] Board of Electrodiagnostic [employer] (ABEM) [place]ODIN [id number] [facility]
--- OUTSIDE RECORDS SUMMARY | 2024-10-28 17:17 | XMS_ITS | Encounter Summary ---
Author Organization [employer] Address [address] [place] [address] Care Team Providers Care Yard Laborer Name Role Phone Citlali Tee NP Primary Care Provider [phone] Reason for Visit * Reason Onset Date Comments Med Refill 09/06/2024 Encounter Details Date Type Department Care Team (Late st Contact Info) Description 09/06/2024 Refill [facility] [address] [place], [place] [phone] Sarah Mukherjee NP [address] [place], [place] [phone] Arthralgia of both hands Social History Tobacco [...] documented as of this encounter Care Teams Yard Laborer Relationship Specialty Start Date End Date Citlali Tee NP [address] [place] [id number] PCP - General Family Medicine 07/14/23 documented as of this encounter
== END 2024-10-28 14:12 | disposition home or self-care (01) ==
LOC: HO.NEURO 14:11
PROVIDERS: PCP Nurse Practitioner Family; Visit Provider Orthopaedic Surgery
DX: R20.0 Anesthesia of skin (principal); R20.2 Paresthesia of skin
CPT/HCPCS: 95886; 95909

== ENCOUNTER → 2024-10-28 14:13 | Outpatient (BNV) | payer MEDICARE, MEDICAID, SELFPAY | PROVIDERS: PCP Nurse Practitioner Family; Visit Provider Physical Medicine & Rehabilitation | DX: G56.22 Lesion of ulnar nerve, left upper limb (principal); G56.02 Carpal tunnel syndrome, left upper limb | CPT/HCPCS: 95886; 95909 ==

== ENCOUNTER 2024-10-30 07:35 | Outpatient (REF) | payer MEDICARE, MEDICAID, SELFPAY ==
--- OUTSIDE RECORDS SUMMARY | 2024-10-30 07:38 | XMS_ITS | Encounter Summary ---
Author Organization [employer] Address [address] [facility] [address] [place] [address] Care Team Providers Care Banjo Repair Person Name Role Phone Citlali Tee NP Primary Care Provider [phone] Reason for Visit * Reason Onset Date Comments Med Refill 09/06/2024 Encounter Details Date Type Department Care Team (Late st Contact Info) Description 09/06/2024 Refill [facility] [address] [place], [place] [phone] Sarah Mukherjee NP [address] [place], [place] [phone] Arthralgia of both hands Social History Tobacco [...] documented as of this encounter Care Teams Banjo Repair Person Relationship Specialty Start Date End Date Citlali Tee NP [address] [place] [id number] PCP - General Family Medicine 07/14/23 documented as of this encounter
[2024-10-30 08:55] LABS: Anion Gap 12 (12-20); Blood Urea Nitrogen 18 mg/dL (9-16); Calcium 10.2 mg/dL (8.4-10.2); Carbon Dioxide 24 mmol/L (22-29); Chloride 107 mmol/L (96-108); Estimated Glomerular Filt Rate 57; Glucose Random 129 mg/dL (60-115); Potassium 3.9 mmol/L (3.3-5.1); Sodium 139 mmol/L (135-145)
== END 2024-10-30 07:36 | disposition home or self-care (01) ==
LOC: HO.LAB 07:35
PROVIDERS: PCP Nurse Practitioner Family; Visit Provider Nurse Practitioner Family
DX: I10 Essential (primary) hypertension (principal)
CPT/HCPCS: 36415; 80048

== ENCOUNTER 2024-11-01 10:18 | Outpatient (REF) | payer MEDICARE, MEDICAID, SELFPAY ==
--- NOTE | ~2024-11-01 | CT_ITS ---
EXAMINATION: CT ABDOMEN AND PELVIS WITHOUT AND WITH CONTRAST CLINICAL INFORMATION: Cyst of kidney. Complex cyst versus mass. COMPARISON: Correlated to renal ultrasound dated July 19, 2024. TECHNIQUE: Multidetector volumetric imaging was performed of the abdomen and pelvis before and after the IV administration of 85 mL of Omnipaque 350 strength intravenous contrast. Sagittal and coronal reformatted images were obtained on the technologist's workstation. DLP: [address] examination was performed using dose optimization techniques as appropriate, variously including the following: *Automated exposure control *Adjustment of mA and/or kV according to patient size (this includes techniques or standardized protocols for targeted exams where dose is matched to indication/reason for exam; i.e. extremities or head) *Use of iterative reconstruction technique FINDINGS: LUNG BASES: No acute airspace disease. LIVER, GALLBLADDER, AND BILIARY TREE: Liver measures 16 cm. Subcentimeter hypodensities. Main portal vein and hepatic veins and intrahepatic portion of the IVC are patent. No pericholecystic fluid collection or gallbladder wall thickening. Common bile duct measures 4 mm. PANCREAS: No focal mass. No main pancreatic ductal dilatation. No peripancreatic fluid collection. SPLEEN: 8 cm. No focal lesion. Small accessory spleen. ADRENAL GLANDS: Soft tissue fullness without gross nodular components. KIDNEYS AND URETERS: Right kidney: 1 mm calculus. No hydronephrosis. No renal mass. Multifocal areas of renal cortical defects. Normal enhancement pattern of the renal parenchyma. Left kidney: 1 mm calculi in the midportion and lower pole. No hydronephrosis. There is a well-defined 18 mm nonenhancing or septated fluid density lesion at the corticomedullary junction of the upper pole. There is a 5 mm nonenhancing fluid density in the posterior upper pole/midportion. There is a 13 mm nonenhancing septated fluid density in the anterior lateral midportion. There is a 36 mm, nonspecific, nonenhancing fluid density lesion at the corticomedullary junction of the posterior midportion/lower pole. There is a 5 mm nonenhancing fluid density in the posterior lower pole. There are renal cortical defects throughout the kidney. No focal enhancing mass. BLADDER: Fluid-filled. GASTROINTESTINAL TRACT: Abundant stool. No intestinal obstruction pattern. Appendicolith at the base of the appendix. The appendix is normal in caliber. Appendix is retrocecal. No intestinal wall thickening. No pneumatosis intestinalis. No pneumoperitoneum. No ascites. ABDOMINAL WALL: Small fat-containing umbilical hernia. Small fat-containing supraumbilical/epigastric hernias. LYMPH NODES: Nonspecific mildly prominent mesenteric. VASCULAR: No aneurysm or dissection, abdominal aorta. Calcified plaques in the distal abdominal aorta wall and iliac arteries. PELVIC VISCERA: Prominent prostate gland. OSSEOUS STRUCTURES: Multilevel thoracolumbar spondylosis. Varices L4-5 on a degenerative basis. Facet joint hypertrophy at L4-L5 S1. S-shaped curvature of the thoracolumbar spine. CT/CT abdomen pelvis wo/w IV con IMPRESSION: No renal mass. Bilateral Bosniak type I cysts. Bilateral nonobstructing nephrolithiasis. Subcentimeter hepatic cysts. Small fat-containing umbilical and supraumbilical/epigastric hernias. Spondylosis and grade 1 anterolisthesis L4-5. Fleischner guidelines were followed. Electronically signed by: Trevor Mckay MD 11/01/2024 12:38 PM EDT
[2024-11-01] MEDS: iohexoL 350 MG/ML 100 ML INFUS..BTL 85 ML IV (11:44)
== END 2024-11-01 10:19 | disposition home or self-care (01) ==
LOC: HO.CT 10:18
PROVIDERS: PCP Nurse Practitioner Family; Visit Provider Nurse Practitioner Family
DX: N28.1 Cyst of kidney, acquired (principal)
CPT/HCPCS: 74178; Q9967

== ENCOUNTER → 2024-11-01 10:20 | Outpatient (BNV) | payer MEDICARE, MEDICAID, SELFPAY | PROVIDERS: PCP Nurse Practitioner Family; Visit Provider Radiology Diagnostic Radiology | DX: N28.1 Cyst of kidney, acquired (principal); N20.0 Calculus of kidney; K76.89 Other specified diseases of liver; K42.9 Umbilical hernia without obstruction or gangrene; M47.816 Spondylosis without myelopathy or radiculopathy, lumbar region | CPT/HCPCS: 74178 ==

== ENCOUNTER 2024-11-09 10:11 | Outpatient (AMB) | payer MEDICARE, MEDICAID, SELFPAY ==
--- NOTE | 2024-11-09 10:24 | MHC.OFFVIS ---
Intake Visit Reasons: 6m follow PVR and CT scan results(pending 11/01) Intake Note: Patient presents today for a 6m follow up/PVR/CT CT Scan 11/01 Urology Medications: none Allergies to Antibiotic: none Blood Thinner: none PVR:0ml Shipping & Receiving Lead Required: No Accompanied by: Self / Same As Patient Allergies ibuprofen (From MOTRIN) Allergy (Intermediate, Verified 11/09/24 10:28) RASH latex Allergy (Intermediate, Verified 11/09/24 10:28) Rash HPI Comments Details: Ag is a very pleasant 64-year-old male patient of Dr. Tee. He has a past medical history of hypertension, arthritis, and hypercholesteremia. He presents to the office today for follow-up of his urinary hesitancy, renal cysts, nephrolithiasis, and family history of prostate cancer. In discussion with the patient today reports to be doing and feeling well. He denies having had any bothersome urinary issues or concerns. Recent results were reviewed with the patient today 10/27 bilateral kidneys with nonobstructing 1 mm calculi. No hydronephrosis noted bilaterally. Left kidney with multiple nonenhancing Bosniak 1 renal cyst. The bladder is fluid-filled. He discusses having recently followed up with his PCP as he was informed that 1 of his 1st cousins had prostate cancer. He reports having had AMY and workup with PCP and being told everything was within normal limits. He does report a intermittent episodes of urinary hesitancy as well as nocturia however feels he is self managing these symptoms independently. PSAs are as follows: 07/26 2.7, 04/27 2.6 He reports noting bladder pressure worsens when attempting to hold his urination. Discussed healthy bathroom behaviors. He otherwise denies urinary urgency, urinary frequency, incontinence, nocturia, hematuria, dysuria, foul smelling urine, changes to urinary stream, flank pain, fever, and or chills. He is happy with his current voiding parameters. Discussed surveillance monitoring of PSA given family history of prostate cancer. Discusses upcoming travel to [place] within the next few days. He otherwise offers no other issues or concerns at this time. 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 [employer] Review of Systems Const All systems reviewed & are unremarkable except as noted in HPI and below Physical Exam Const General: cooperative, healthy appearing, comfortable, no acute distress, well developed, alert and awake Orientation/consciousness: patient oriented x3 Limitations: no limitations HEENT Head: Yes normal to inspection, Yes normocephalic and Yes atraumatic Ears: hearing grossly normal bilaterally Eyes General: appearance normal, both eyes and all related structures Neck Neck: Yes normal visual inspection and Yes trachea midline Chest Chest palpation & inspection: normal inspection of the chest Resp Effort & Inspection: normal respiratory effort and able to speak in complete sentences Cardio Rate: regular rate GI Inspection: Yes normal to inspection General: Yes no CVA tenderness Back/Spine/Pelvis Back: no CVA tenderness Skin General skin exam: no rashes or lesions noted Neuro General: patient oriented x3 Extrem General: Yes normal to inspection Psych Appearance: grossly normal and well kempt Mental Status: mental status grossly normal Speech and movement: Normal speech and movement present and Clear speech present Affect: normal affect Attitude: cooperative Thought process: Normal thought process present Thought content: Normal thought content present Insight: Fair insight present (Psych) Judgement: Fair judgement present (Psych) Results Reviewed Results Reviewed: Date of Service: 11/01/24 Procedure(s): CT abdomen pelvis wo/w IV con FINDINGS: LUNG BASES: No acute airspace disease. LIVER, GALLBLADDER, AND BILIARY TREE: Liver measures 16 cm. Subcentimeter hypodensities. Main portal vein and hepatic veins and intrahepatic portion of the IVC are patent. No pericholecystic fluid collection or gallbladder wall thickening. Common bile duct measures 4 mm. PANCREAS: No focal mass. No main pancreatic ductal dilatation. No peripancreatic fluid collection. SPLEEN: 8 cm. No focal lesion. Small accessory spleen. ADRENAL GLANDS: Soft tissue fullness without gross nodular components. KIDNEYS AND URETERS: Right kidney: 1 mm calculus. No hydronephrosis. No renal mass. Multifocal areas of renal cortical defects. Normal enhancement pattern of the renal parenchyma. Left kidney: 1 mm calculi in the midportion and lower pole. No hydronephrosis. There is a well-defined 18 mm nonenhancing or septated fluid density lesion at the corticomedullary junction of the upper pole. There is a 5 mm nonenhancing fluid density in the posterior upper pole/midportion. There is a 13 mm nonenhancing septated fluid density in the anterior lateral midportion. There is a 36 mm, nonspecific, nonenhancing fluid density lesion at the corticomedullary junction of the posterior midportion/lower pole. There is a 5 mm nonenhancing fluid density in the posterior lower pole. There are renal cortical defects throughout the kidney. No focal enhancing mass. BLADDER: Fluid-filled. GASTROINTESTINAL TRACT: Abundant stool. No intestinal obstruction pattern. Appendicolith at the base of the appendix. The appendix is normal in caliber. Appendix is retrocecal. No intestinal wall thickening. No pneumatosis intestinalis. No pneumoperitoneum. No ascites. ABDOMINAL WALL: Small fat-containing umbilical hernia. Small fat-containing supraumbilical/epigastric hernias. LYMPH NODES: Nonspecific mildly prominent mesenteric. VASCULAR: No aneurysm or dissection, abdominal aorta. Calcified plaques in the distal abdominal aorta wall and iliac arteries. PELVIC VISCERA: Prominent prostate gland. OSSEOUS STRUCTURES: Multilevel thoracolumbar spondylosis. Varices L4-5 on a degenerative basis. Facet joint hypertrophy at L4-L5 S1. S-shaped curvature of the thoracolumbar spine. IMPRESSION: No renal mass. Bilateral Bosniak type I cysts. Bilateral nonobstructing nephrolithiasis. Subcentimeter hepatic cysts. Small fat-containing umbilical and supraumbilical/epigastric hernias. Spondylosis and grade 1 anterolisthesis L4-5. Fleischner guidelines were followed. Assessment & Plan Assessment & Plan (1) Complex renal cyst: Code(s): N28.1 - Cyst of kidney, acquired Category: Medical (2) History of urinary hesitancy: Code(s): Z87.898 - Personal history of other specified conditions Category: Medical (3) Family history of prostate cancer: Code(s): Z80.42 - Family history of malignant neoplasm of prostate Category: Medical (4) Renal cyst: Code(s): N28.1 - Cyst of kidney, acquired Category: Medical Plan In office urinalysis results reviewed with the patient today; as noted above. PVR [address] renal mass protocol results reviewed with the patient today; as noted above. He currently denies any bothersome urinary issues or concerns. He reports be happy with current voiding parameters. Will continue with surveillance monitoring of PSAs as well as renal cysts. All questions were answered Will obtain PSA Will obtain renal ultrasound in 6 months Follow-up in 6 months with imaging, PSA, and PVR; or sooner with any issues, concerns, and or questions. Orders: Orders US renal BI 6 Months N20.0 - Calculus of kidney, N28.1 - Cyst of kidney, acquired Prostate Specific Antigen Today Z80.42 - Family history of malignant neoplasm of prostate Patient Instructions: The patient had an opportunity to ask questions regarding the treatment plan. All questions were answered. Physical exam, labs, and imaging were discussed and reviewed in detail. As well as risks, benefits, and discussion of treatment choices. No major barriers to understanding were identified. The patient expressed understanding and agreement with the above treatment plan. The patient was made aware they should contact our office by phone for worsening of their current condition, the appearance of new symptoms, or with any questions or concerns. Compliance is encouraged with any medications and follow up testing that is ordered. It is a privilege to be allowed the opportunity to participate in? your urological care.? Again, if you have any questions or concerns If you have any questions or concerns please do not hesitate to contact me. The office is [phone]. This note is constructed using voice recognition software. While every effort has been made to ensure accuracy grey roll man errors may have been included. Yours sincerely, JULIEN Warren Coding Level of Care Code Est Pt Level 3 (97973) Complex EM visit Add On G2211 Diagnoses Complex renal cyst N28.1 History of urinary hesitancy Z87.898 Family history of prostate cancer Z80.42 Renal cyst N28.1
--- OUTSIDE RECORDS SUMMARY | 2024-11-09 10:58 | XMS_ITS | Clinical Summary ---
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
--- OUTSIDE RECORDS SUMMARY | 2024-11-09 10:58 | XMS_ITS | Clinical Summary ---
Author Organization [facility] Address [address] [place] [address] Phone Care Team Providers Care Shredded Filler Cutter Operator Name Role Phone Physician, Pcp Unknown Primary Care Provider Rupali vailable Allergies Active Allergy Reactions Criticality Noted Date Comments Adhesive 09/21/2024 Ibuprofen 10/30/2023 Latex Rash,Unknown Medium 02/01/2016 Stewart to skin Medications No known medications Encounters Date Type Department Care Team Description 09/21/2024 9:38 AM EDT - 09/21/2024 11:[address] [facility] [address] [place] [address] Lei Mario MD Chest pain, [...] 46 09/21/2024 11:17 AM EDT Temperature 36.4 C (97.5 F) 09/21/2024 11:17 AM EDT Respiratory Rate 16 09/21/2024 11:17 AM EDT [...] 2024 Depression Screening 07/27/2024 07/28/2023 Influenza Vaccine (#1) 2025 , 05/27/2019, 04/30/2018, Additional history exists Hypertension/CHF/CAD Annual [...] 5 Years) and At-Risk Patients (6 to 49 Years) Aged Out No longer eligible based on patient's age to complete this topic RSV Immunization Patients Under 20 months Aged Out No longer eligible based on patient's age to complete this topic Varicella Vaccines Aged Out No longer eligible based on patient's age to complete this topic Procedures Procedure Name Priority Date/Time Associated Diagnosis Comments ECG ANNOTATED 09/22/2024 XR CHEST 2 VIEWS STAT 09/21/2024 11:0 [...] EDT from Last 3 Months Results * ECG-Annotated (09/22/2024) us Provider Onbase MD ECG ORDERABLES Final Result * XR Chest 2 Views (09/21/2024 11:05 AM EDT) Anatomical Region Laterality Modality Body Radiographic Mary ging 09/21/2024 2:08 PM EDT Impressions 09/21/2024 2:12 PM EDT FINDINGS/IMPRESSION: Hypoventilatory examination without consolidation or effusion. No pneumothorax. Hiatal hernia. Degenerative changes of the shoulders. -------- FINAL REPORT -------- Dictated By: Raven Anderson Dictated Date: 09/21/2024 14:08 ET Assigned Physician: Raven Anderson Reviewed and Electronically Signed By: Raven Anderson Signed Date: 09/21/2024 14:12 ET Workstation ID: [id number] Transcribed By: Self Edit Transcribed Date: 09/21/2024 [...] Signed Date: 09/21/2024 14:12 ET Workstation ID: [id number] Transcribed By: Self Edit Transcribed Date: 09/21/2024 14:08 ET us Lei Mario MD IMG XR PROCEDURES Final Res ult * Troponin I high sensitivity (09/21/2024 10:25 AM EDT) Only the most recent of2 resultswithin the time period is included. High Sensitivity Troponin I 8 <=79 ng/L LAB CHEMISTRY METHOD 09/21/2024 11:14 AM EDT [facility] Blood Venous blood specimen / Unknown Venipuncture / Unknown 09/21/2024 10:25 AM EDT 09/21/2024 10:42 AM EDT [facility] - 09/21/2024 11:14 AM EDT High levels of biotin in samples may falsely decrease hsTroponin values. Use caution when interpreting hsTroponin results in patients taking biotin who exhibit renal impairment (eGFR <60) or in patients taking more than 20 mg/day of biotin. Lei Mario MD LAB BLOOD ORDERABLES Final Result Performing Organization Address [facility]/ZIP Co de Phone Number [facility] [address] [place] [address], [place] [phone] * D-dimer, quantitative (09/21/2024 10:25 AM EDT) D-Dimer, Quant (D-DU) <150 <=230 ng/mL DDU LAB COAGULATION METHOD 09/21/2024 11:11 AM EDT [facility] Blood Venous blood specimen / Unknown Venipuncture / Unknown 09/21/2024 10:25 AM EDT 09/21/2024 10:42 AM EDT [facility] - 09/21/2024 11:11 AM EDT D-Dimer <230 ng/mL (D-Dimer units) is the threshold for exclusion of DVT/PE. D-Dimer may be elevated in: Critically ill, severely infected, trauma patients, DIC, acute CVA, acute ME, unstable angina, AF, old age, , and smoking. D-Dimer may be decreased with: Initiation of heparin therapy and oral anticoagulants. Lei Mario MD LAB BLOOD ORDERABLES Final Result Performing Organization Address City/[facility]/ZIP Co de Phone Number [facility] [address] [place] [address], [place] [phone] * ECG 12 lead (09/21/2024 9:54 AM EDT) Only the most recent of2 resultswithin the time period is included. Pathologist [facility] Ventricular Rate ECG 55 BPM GEMUSE Atrial Rate 55 BPM GEMUSE P-R Interval 184 ms GEMUSE QRS Duration 92 ms GEMUSE Q-T Interval 426 ms GEMUSE QTc 407 ms GEMUSE P Wave Millis 40 degrees GEMUSE R Millis 25 degrees GEMUSE T Millis -2 degrees GEMUSE ECG Interpretation Sinus bradycardia with Premature atrial complexes Nonspecific ST and T wave abnormality Abnormal ECG When compared with ECG of 21-SEP-2024 07:36, (unconfirmed) Non-specific change in ST segment in Lateral leads Nonspecific T wave abnormality has replaced inverted T waves in Lateral leads Confirmed by Arlene DEL TORO JOHN ([id number]) on 09/21/2024 7:04:54 PM GEMUSE 09/21/2024 9:54 AM EDT 09/21/2024 7:04 PM EDT us Lei Mario MD ECG ORDERABLES Final Resul t GEMUSE * (ABNORMAL) CBC auto differential (09/21/2024 7:48 AM EDT) [facility] WBC 5.5 4.8 - 10.8 K/mcL LAB HEMETOLOGY METHOD 09/21/2024 8:21 AM EDT [facility] RBC 4.30(L) 4.50 - 5.50 M/mcL LAB HEMETOLOGY METHOD 09/21/2024 8:21 AM EDT [facility] Hemoglobin 12.5(L) 13.5 - 17.5 g/dL LAB HEMETOLOGY METHOD 09/21/2024 8:21 AM EDT [facility] Hematocrit 40.6(L) 42.0 - 54.0 % LAB HEMETOLOGY METHOD 09/21/2024 8:21 AM EDT [facility] MCV 93.8 79.0 - 98.0 FL LAB HEMETOLOGY METHOD 09/21/2024 8:21 AM [facility] MCH 28.9 27.0 - 32.0 pcg LAB HEMETOLOGY METHOD 09/21/2024 8:21 AM [facility] MCHC 30.8(L) 32.0 - 37.0 g/dL LAB HEMETOLOGY METHOD 09/21/2024 8:21 AM [facility] RDW 12.9 11.0 - 15.0 % LAB HEMETOLOGY METHOD 09/21/2024 8:21 AM [facility] Platelets 230 130 - 400 K/mcL LAB HEMETOLOGY METHOD 09/21/2024 8:21 AM [facility] MPV 10.5 7.0 - 11.0 FL LAB HEMETOLOGY METHOD 09/21/2024 8:21 AM [facility] NRBC 0.0 <1.0 % LAB HEMETOLOGY METHOD 09/21/2024 8:21 AM [facility] NRBC Absolute 0.00 <0.10 K/mcL LAB HEMETOLOGY METHOD 09/21/2024 8:21 AM [facility] Neutrophils Relative 51.1 % LAB HEMETOLOGY METHOD 09/21/2024 8:21 AM [facility] Lymphocytes Relative 36.5 % LAB HEMETOLOGY METHOD 09/21/2024 8:21 AM [facility] Monocytes Relative 8.1 % LAB HEMETOLOGY METHOD 09/21/2024 8:21 AM [facility] Eosinophils Relative 3.4 % LAB HEMETOLOGY METHOD 09/21/2024 8:21 AM [facility] Basophils Relative 0.5 % LAB HEMETOLOGY METHOD 09/21/2024 8:21 AM [facility] Immature Granulocytes Relative 0.4 % LAB HEMETOLOGY METHOD 09/21/2024 8:21 AM EDT [facility] Neutrophils Absolute 2.83 1.50 - 7.00 K/mcL LAB HEMETOLOGY METHOD 09/21/2024 8:21 AM EDT [facility] Lymphocytes Absolute 2.02 1.00 - 5.00 K/mcL LAB HEMETOLOGY METHOD 09/21/2024 8:21 AM EDT [facility] Monocytes Absolute 0.45 0.20 - 1.00 K/mcL LAB HEMETOLOGY METHOD 09/21/2024 8:21 AM EDT [facility] Eosinophils Absolute 0.19 0.00 - 0.50 K/[facility] LAB HEMETOLOGY METHOD 09/21/2024 8:21 AM EDT [facility] Basophils Absolute 0.03 0.00 - 0.20 K/mcL LAB HEMETOLOGY METHOD 09/21/2024 8:21 AM EDT [facility] Immature Granulocytes Absolute 0.02 0.00 - 0.03 K/mcL LAB HEMETOLOGY METHOD 09/21/2024 8:21 AM EDT [facility] Blood Venous blood specimen / Unknown Venipuncture / Unknown 09/21/2024 7:48 AM EDT 09/21/2024 8:14 AM EDT us Lei Mario MD LAB BLOOD ORDERABLES Final Result [facility] [address] [place] [address], * B-type natriuretic peptide (09/21/2024 7:48 AM EDT) BNP 27 <=100 pcg/mL LAB CHEMISTRY METHOD 09/21/2024 8:54 AM EDT [facility] Blood Venous blood specimen / Unknown Venipuncture / Unknown 09/21/2024 7:48 AM EDT 09/21/2024 8:14 AM EDT Lei Mario MD LAB BLOOD ORDERABLES Final Result Performing Organization Address [facility] de Phone Number [facility] [address] [place] [address], [place] [phone] * Magnesium (09/21/2024 7:48 AM EDT) Magnesium 2.2 1.9 - 2.6 mg/dL LAB CHEMISTRY METHOD 09/21/2024 8:46 AM EDT [facility] Blood Venous blood specimen / Unknown Venipuncture / Unknown 09/21/2024 7:48 AM EDT 09/21/2024 8:14 AM EDT Lei Mario MD LAB BLOOD ORDERABLES Final Result Performing Organization Address [facility] de Phone Number [facility] [address] [place] [address], [place] [phone] * Lipase (09/21/2024 7:48 AM EDT) Lipase 28 13 - 75 unit/L LAB CHEMISTRY METHOD 09/21/2024 8:46 AM EDT [facility] Blood Venous blood specimen / Unknown Venipuncture / Unknown 09/21/2024 7:48 AM EDT 09/21/2024 8:14 AM EDT Lei Mario MD LAB BLOOD ORDERABLES Final Result Performing Organization Address [facility] Co de Phone Number [facility] [address] [place] [address], [place] [phone] * (ABNORMAL) Comprehensive metabolic panel (09/21/2024 7:48 AM EDT) Sodium 136 133 - 145 mmol/L LAB CHEMISTRY METHOD 09/21/2024 8:46 AM [facility] Potassium 3.9 3.5 - 5.5 mmol/L LAB CHEMISTRY METHOD 09/21/2024 8:46 AM [facility] Chloride 106 96 - 110 mmol/L LAB CHEMISTRY METHOD 09/21/2024 8:46 AM [facility] CO2 24 21 - 32 mmol/L LAB CHEMISTRY METHOD 09/21/2024 8:46 AM [facility] Anion Gap 6 3 - 11 LAB CHEMISTRY METHOD 09/21/2024 8:46 AM [facility] Glucose 118(H) 70 - 100 mg/dL LAB CHEMISTRY METHOD 09/21/2024 8:46 AM [facility] BUN 17 5 - 25 mg/dL LAB CHEMISTRY METHOD 09/21/2024 8:46 AM [facility] Creatinine 1.10 0.70 - 1.30 mg/dL LAB CHEMISTRY METHOD 09/21/2024 8:46 AM [facility] eGFR 74 >=60 mL/min/1. 73m2 LAB CHEMISTRY METHOD 09/21/2024 8:46 AM [facility] Comment:Calculation based on the Chronic Kidney Disease Epidemiology Collaboration (CKD-EPI) equation refit without adjustment for race. BUN/Creatinine Ratio 15.5 LAB CHEMISTRY METHOD 09/21/2024 8:46 AM [facility] Calcium 11.2(H) 8.5 - 10.5 mg/dL LAB CHEMISTRY METHOD 09/21/2024 8:46 AM [facility] AST (SGOT) 29 10 - 42 unit/L LAB CHEMISTRY METHOD 09/21/2024 8:46 AM [facility] ALT (SGPT) 31 10 - 60 unit/L LAB CHEMISTRY METHOD 09/21/2024 8:46 AM [facility] Alkaline Phosphatase 107 42 - 121 unit/L LAB CHEMISTRY METHOD 09/21/2024 8:46 AM EDT [facility] Total Protein 8.3(H) 6.0 - 8.0 g/dL LAB CHEMISTRY METHOD 09/21/2024 8:46 AM EDT [facility] Albumin 4.6 3.2 - 5.0 g/dL LAB CHEMISTRY METHOD 09/21/2024 8:46 AM EDT [facility] Total Bilirubin 0.4 0.0 - 1.4 mg/dL LAB CHEMISTRY METHOD 09/21/2024 8:46 AM EDT [facility] Blood Venous blood specimen / Unknown Venipuncture / Unknown 09/21/2024 7:48 AM EDT 09/21/2024 8:14 AM EDT us Lei Mario MD LAB BLOOD ORDERABLES Final Result [facility] [address] [place] [address], from Last 3 Months Insurance MEDICARE MEDICAID - [place] Care Teams Shredded Filler Cutter Operator Relationship Specialty Start Date End Date Physician, Pcp Unknown PCP - General 09/21/24
--- OUTSIDE RECORDS SUMMARY | 2024-11-09 10:58 | XMS_ITS | Clinical Summary ---
Author Organization [facility] Address [address] [place] [address] Care Team Providers Care Offset Proof Press Operator Name Role Phone Americo Hu PA-C Primary Care Provider [phone] Source Comments PLEASE NOTE, if this patient [...] pressure) 02/13/2016 Rheumatoid arthritis involving both hands ([facility]) 02/01/2016 Resolved Problems Problem Noted Date Diagnosed [...] Description 09/15/2024 9:40 AM EDT Office Visit [facility] [address] [place] [address] Donnell Howell RHD from Last 3 Months Immunizations Immunization Administration [...] 66 09/15/2024 10:05 AM EDT Temperature 36.7 C (98.1 F) 05/27/2019 3:05 PM EST Respiratory Rate 18 05/27/2019 3:05 PM EST [...] Fecal DNA 2004 Flexible Sigmoidoscopy 2004 Imm-Pneumococcal 50+ (1 of 1 - PCV) 2009 Imm-Zoster, Recombinant (1 of 2) 2009 Annual Wellness (Adult): Ind icated (All Coverage) 05/27/2020 05/27/2019, 04/30/2018, 08/08/2016, Additional history exists [id number] ( season) 2024 07/17/2021, 09/25/2020, 09/04/2020 Falls Prevention 2024 Alcohol and Drug Screen 05/05/2024 05/27/19 20, 04/30/2018, 04/30/2018, Additional history exists Depression Annual Screen 05/05/2024 05/27/2019, 04/05 Imm-Influenza (#1) 2025 02/12/2021, 0 05/27/2019, 04/30/2018, Additional history exists Diabetes Screening 03/08/2025 03/08/2024, 1 05/08/2023, 03/08/2024, Additional history exists Dental BW [...] & HIV-2 ANTIBODIES (06/03/2019 9:45 AM EST) HIV 1 AND 2 ANTIBODY SCREEN NEGATIVE NEGATIVE [facility] Comment: This assay is a 4th generation assay allowing for earlier detection of HIV infection by detecting the presence of the HIV-1 p24 antigen as well as the traditional antibodies to HIV type 1 (including group O) and type 2. Use of a 4th generation assay is the current CDC recommendation for HIV screening. Blood specimen (specimen) Blood / Unknown 06/03/2019 9:45 AM EST 06/03/2019 9:46 AM EST Narrative [facility] - 06/03/2019 12:50 PM EST [employer], [place] [address] [employer] - Dhara Flores MD PT ID [id number] ORD# [id number] [facility] - [place] [address], * HEMOGLOBIN, GLYCOSYLATED (A1C) (06/03/2019 9:45 AM EST) GLYCATED HEMOGLOBIN A1C 5.1 <6.5 % [facility] ESTIMATED AVERAGE GLUCOSE 100 mg/dL [facility] Blood specimen (specimen) Blood / Unknown 06/03/2019 9:45 AM EST 06/03/2019 9:46 AM EST Narrative [facility] - 06/03/2019 12:31 PM EST [employer], a member of [address] [employer] - Dhara Flores MD PT ID [id number] ORD# [id number] [facility] - BLOOD DRAW Final Resu lt Performing Organization Address City/[facility]/[place] [address], * (ABNORMAL) LIPID PANEL (06/03/2019 9:44 AM EST) CHOLESTEROL 187 0 - 200 mg/dL [facility] TRIGLYCERIDES 73 0 - 150 mg/dL [facility] HDL CHOLESTEROL 58 >40 mg/dL [facility] LDL CALCULATED 115(H) 0 - 100 mg/dL [facility] TC-HDLC RATIO 3.2 0 - 4.4 mg/dL [facility] Blood specimen (specimen) Blood / Unknown 06/03/2019 9:44 AM EST 06/03/2019 9:46 AM EST Narrative [facility] - 06/03/2019 12:01 PM EST [employer], a member of [address] [employer] - Dhara Flores MD PT ID [id number] ORD# [id number] [facility] - BLOOD DRAW Final Resu lt Performing Organization Address City/[facility]/ZIP Co de Phone Number [address] [address], * (ABNORMAL) hepatitis ABC panel future (04/30/2018 9:50 AM EST) HEPATITIS B SURFACE ANTIBODY POSITIVE(A) NEGATIVE [facility] HEPATITIS B SURFACE ANTIGEN NEGATIVE NEGATIVE [facility] Comment: Over the counter supplements containing high doses of biotin may interfere with this assay. If interference is suspected, patients shoud be retested after refraining from biotin supplements for 72 hours. HEPATITIS C VIRUS DIAGNOSTIC NEGATIVE NEGATIVE [facility] HEPATITIS A ANTIBODY TOTAL POSITIVE(A) NEGATIVE [facility] Comment: Over the counter supplements containing high doses of biotin may interfere with this assay. If interference is suspected, patients shoud be retested after refraining from biotin supplements for 72 hours. HEPATITIS B CORE ANTIBODY POSITIVE(A) NEGATIVE [facility] Blood specimen (specimen) Blood / Unknown 04/30/2018 9:50 AM EST 04/30/2018 11:36 AM EST Narrative [facility] - 04/30/2018 7:16 PM EST [employer], [place] [address] [employer] - Janell Pollack MD PT ID [id number] ORD# [id number] Clinton Hanson MD LAB - BLOOD DRAW [place] - [place] [address], from Last 3 Months or Most Recently Relevant to Health Maintenance Insurance [facility] ([facility]) Member Subscriber Plan / Payer (Ef fective 2019-Present) Name:Ag Gill Relation to Subscriber:Self Name:Ag Gill Payer ID:[id number] Group ID:Not on file Type:Indemnity Address: [address] [place] [address] [facility] [facility] [place] D[place] Care Teams Offset Proof Press Operator Relationship Specialty Start Date End Date Americo Hu PA-C [address] [place] [address] PCP - General 10/12/21
--- OUTSIDE RECORDS SUMMARY | 2024-11-09 10:58 | XMS_ITS | Encounter Summary ---
Author Organization [employer] Address [address] [facility] 7t [place] [address] Care Team Providers Care Guest Advisor Name Role Phone Citlali Tee NP Primary Care Provider [phone] Reason for Visit * Reason Onset Date Comments Med Refill 09/06/2024 Encounter Details Date Type Department Care Team (Late st Contact Info) Description 09/06/[address] [facility] [address] [place], [place] [phone] Sarah Mukherjee NP [address] [place], [place] [phone] Arthralgia of both hands Social History Tobacco [...] documented as of this encounter Care Teams Guest Advisor Relationship Specialty Start Date End Date Citlali Tee NP [address] [place] [address] PCP - General Family Medicine 07/14/23 documented as of this encounter
== END 2024-11-09 10:56 | disposition home or self-care (01) ==
PROVIDERS: PCP Nurse Practitioner Family; Visit Provider Nurse Practitioner Family
DX: N28.1 Cyst of kidney, acquired (principal); Z87.898 Personal history of other specified conditions; Z80.42 Family history of malignant neoplasm of prostate; Z13.9 Encounter for screening, unspecified
CPT/HCPCS: 99213; G2211

== ENCOUNTER → 2024-11-09 10:11 | Outpatient (BNVA) | payer MEDICAID, SELFPAY | PROVIDERS: PCP Nurse Practitioner Family; Visit Provider Nurse Practitioner Family | DX: N20.0 Calculus of kidney (principal); N28.1 Cyst of kidney, acquired; Z80.42 Family history of malignant neoplasm of prostate; Z87.898 Personal history of other specified conditions | CPT/HCPCS: 51798; 81003; 99212 ==

== ENCOUNTER 2024-12-13 11:29 | Outpatient (REF) | payer MEDICARE, MEDICAID, SELFPAY ==
--- OUTSIDE RECORDS SUMMARY | 2024-12-13 12:06 | XMS_ITS | Clinical Summary ---
Author Organization [facility] Address [address] [place] [address] Phone Care Team Providers Care Bander Operator Name Role Phone Physician, Pcp Unknown Primary Care Provider Rupali vailable Allergies Active Allergy Reactions Criticality Noted Date Comments Adhesive 09/21/2024 Ibuprofen 10/30/2023 Latex Rash,Unknown Medium 02/01/2016 Stewart to skin Medications No known medications Encounters Date Type Department Care Team Description 09/21/2024 9:38 AM EDT - 09/21/2024 11:40 AM EDT Emergency [facility] Emergency [address] [place] [address] Lei Mario MD Chest pain, [...] 09/04/2020 Falls Risk Assessment 2024 Depression Screening 05/05/2024 Influenza Vaccine (#1) 2025 , 05/27/2019, 04/30/2018, [...] Signed Date: 09/21/2024 14:12 ET Workstation ID: [id number] Transcribed By: Self Edit Transcribed Date: 09/21/2024 [...] Signed Date: 09/21/2024 14:12 ET Workstation ID: [id number] Transcribed By: Self Edit Transcribed Date: 09/21/2024 14:08 ET us Lei Mario MD IMG XR PROCEDURES Final Res ult * Troponin I high sensitivity (09/21/2024 10:25 AM EDT) Only the most recent of2 resultswithin the time period is included. High Sensitivity Troponin I 8 <=79 ng/L LAB CHEMISTRY METHOD 09/21/2024 11:14 AM EDT [facility] ([facility]) [facility] Blood Venous blood specimen / Unknown Venipuncture / Unknown 09/21/2024 10:25 AM EDT 09/21/2024 10:[address] [facility] - 09/21/2024 11:14 AM EDT High levels of biotin in samples may falsely decrease hsTroponin values. Use caution when interpreting hsTroponin results in patients taking biotin who exhibit renal impairment (eGFR <60) or in patients taking more than 20 mg/day of biotin. us Lei Mario MD LAB BLOOD ORDERABLES Final Result Performing Organization Address [facility] Co de Phone Number [facility] [address] [place] [address], [place] [phone] * D-dimer, quantitative (09/21/2024 10:25 AM EDT) [facility] D-Dimer, Quant (D-DU) <150 <=230 ng/mL DDU LAB COAGULATION METHOD 09/21/2024 11:11 AM EDT [facility] Blood Venous blood specimen / Unknown Venipuncture / Unknown 09/21/2024 10:25 AM EDT 09/21/2024 10:[address] [facility] - 09/21/2024 11:11 AM EDT D-Dimer <230 ng/mL (D-Dimer units) is the threshold for exclusion of DVT/PE. D-Dimer may be elevated in: Critically ill, severely infected, trauma patients, DIC, acute CVA, acute MT, unstable angina, AF, old age, , and smoking. D-Dimer may be decreased with: Initiation of heparin therapy and oral anticoagulants. us Lei Mario MD LAB BLOOD ORDERABLES Final Result Performing Organization Address [facility]/ZIP Co de Phone Number [facility] [address] [place] [address], [place] [phone] * ECG 12 lead (09/21/2024 9:54 AM EDT) Only the most recent of2 resultswithin the time period is included. Pathologist [facility] Ventricular Rate ECG 55 BPM GEMUSE Atrial Rate 55 BPM GEMUSE P-R Interval 184 ms GEMUSE QRS Duration 92 ms GEMUSE Q-T Interval 426 ms GEMUSE QTc 407 ms GEMUSE P Wave [place] 40 degrees GEMUSE R [place] 25 degrees GEMUSE T [place] -2 degrees GEMUSE ECG Interpretation Sinus bradycardia with Premature atrial complexes Nonspecific ST and T wave abnormality Abnormal ECG When compared with ECG of 21-SEP-2024 07:36, (unconfirmed) Non-specific change in ST segment in Lateral leads Nonspecific T wave abnormality has replaced inverted T waves in Lateral leads Confirmed by Arlene DEL TORO JOHN ([id number]) on 09/21/2024 7:04:54 PM GEMUSE 09/21/2024 9:54 AM EDT 09/21/2024 7:04 PM EDT us Lei Mario MD ECG ORDERABLES Final Resul t GEMUSE * (ABNORMAL) CBC auto differential (09/21/2024 7:48 AM EDT) [facility] WBC 5.5 4.8 - 10.8 K/mcL LAB HEMETOLOGY METHOD 09/21/2024 8:21 AM [facility] RBC 4.30(L) 4.50 - 5.50 M/mcL LAB HEMETOLOGY METHOD 09/21/2024 8:21 AM [facility] Hemoglobin 12.5(L) 13.5 - 17.5 g/dL LAB HEMETOLOGY METHOD 09/21/2024 8:21 AM [facility] Hematocrit 40.6(L) 42.0 - 54.0 % LAB HEMETOLOGY METHOD 09/21/2024 8:21 AM [facility] MCV 93.8 79.0 - 98.0 FL LAB HEMETOLOGY METHOD 09/21/2024 8:21 AM [facility] MCH 28.9 27.0 - 32.0 pcg LAB HEMETOLOGY METHOD 09/21/2024 8:21 AM [facility] MCHC 30.8(L) 32.0 - 37.0 g/dL LAB HEMETOLOGY METHOD 09/21/2024 8:21 AM [facility] RDW 12.9 11.0 - 15.0 % LAB HEMETOLOGY METHOD 09/21/2024 8:21 AM [facility] Platelets 230 130 - 400 K/mcL LAB HEMETOLOGY METHOD 09/21/2024 8:21 AM [facility] MPV 10.5 7.0 - 11.0 FL LAB HEMETOLOGY METHOD 09/21/2024 8:21 AM [facility] NRBC 0.0 <1.0 % LAB HEMETOLOGY METHOD 09/21/2024 8:21 AM [facility] NRBC Absolute 0.00 <0.10 K/mcL LAB HEMETOLOGY METHOD 09/21/2024 8:21 AM [facility] Neutrophils Relative 51.1 % LAB HEMETOLOGY METHOD 09/21/2024 8:21 AM [facility] Lymphocytes Relative 36.5 % LAB HEMETOLOGY METHOD 09/21/2024 8:21 AM [facility] Monocytes Relative 8.1 % LAB HEMETOLOGY METHOD 09/21/2024 8:21 AM [facility] Eosinophils Relative 3.4 % LAB HEMETOLOGY METHOD 09/21/2024 8:21 AM [facility] Basophils Relative 0.5 % LAB HEMETOLOGY METHOD 09/21/2024 8:21 AM [facility] Immature Granulocytes Relative 0.4 % LAB HEMETOLOGY METHOD 09/21/2024 8:21 AM [facility] Neutrophils Absolute 2.83 1.50 - 7.00 K/mcL LAB HEMETOLOGY METHOD 09/21/2024 8:21 AM EDT [facility] Lymphocytes Absolute 2.02 1.00 - 5.00 K/mcL LAB HEMETOLOGY METHOD 09/21/2024 8:21 AM EDT [facility] Monocytes Absolute 0.45 0.20 - 1.00 K/[facility] LAB HEMETOLOGY METHOD 09/21/2024 8:21 AM EDT [facility] Eosinophils Absolute 0.19 0.00 - 0.50 K/[facility] LAB HEMETOLOGY METHOD 09/21/2024 8:21 AM EDT [facility] Basophils Absolute 0.03 0.00 - 0.20 K/[facility] LAB HEMETOLOGY METHOD 09/21/2024 8:21 AM EDT [facility] Immature Granulocytes Absolute 0.02 0.00 - 0.03 K/[facility] LAB HEMETOLOGY METHOD 09/21/2024 8:21 AM EDT [facility] Blood Venous blood specimen / Unknown Venipuncture / Unknown 09/21/2024 7:48 AM EDT 09/21/2024 8:14 AM EDT us Lei Mario MD LAB BLOOD ORDERABLES Final Result Performing Organization Address City/[facility]/ZIP Co de Phone Number [facility] [address] [place] [address], * B-type natriuretic peptide (09/21/2024 7:48 AM EDT) BNP 27 <=100 pcg/mL LAB CHEMISTRY METHOD 09/21/2024 8:54 AM EDT [facility] Blood Venous blood specimen / Unknown Venipuncture / Unknown 09/21/2024 7:48 AM EDT 09/21/2024 8:14 AM EDT us Lei Mario MD LAB BLOOD ORDERABLES Final Result [facility] [address] [place] [address], [place] [phone] * Magnesium (09/21/2024 7:48 AM EDT) [facility] Magnesium 2.2 1.9 - 2.6 mg/dL LAB CHEMISTRY METHOD 09/21/2024 8:46 AM EDT [facility] Blood Venous blood specimen / Unknown Venipuncture / Unknown 09/21/2024 7:48 AM EDT 09/21/2024 8:14 AM EDT Lei Mario MD LAB BLOOD ORDERABLES Final Result Performing Organization Address [facility] de Phone Number [facility] [address] [place] [address], [place] [phone] * Lipase (09/21/2024 7:48 AM EDT) [facility] Lipase 28 13 - 75 unit/L LAB CHEMISTRY METHOD 09/21/2024 8:46 AM EDT [facility] Blood Venous blood specimen / Unknown Venipuncture / Unknown 09/21/2024 7:48 AM EDT 09/21/2024 8:14 AM EDT Lei Mario MD LAB BLOOD ORDERABLES Final Result Performing Organization Address [facility] de Phone Number [facility] [address] [place] [address], [place] [phone] * (ABNORMAL) Comprehensive metabolic panel (09/21/2024 7:48 AM EDT) [facility] Sodium 136 133 - 145 mmol/L LAB CHEMISTRY METHOD 09/21/2024 8:46 AM EDT [facility] Potassium 3.9 3.5 - 5.5 mmol/L LAB CHEMISTRY METHOD 09/21/2024 8:[facility] Chloride 106 96 - 110 mmol/L LAB CHEMISTRY METHOD 09/21/2024 8:46 AM [facility] CO2 24 21 - 32 mmol/L LAB CHEMISTRY METHOD 09/21/2024 8:46 AM [facility] Anion Gap 6 3 - 11 LAB CHEMISTRY METHOD 09/21/2024 8:46 AM [facility] Glucose 118(H) 70 - 100 mg/dL LAB CHEMISTRY METHOD 09/21/2024 8:46 AM [facility] BUN 17 5 - 25 mg/dL LAB CHEMISTRY METHOD 09/21/2024 8:46 AM [facility] Creatinine 1.10 0.70 - 1.30 mg/dL LAB CHEMISTRY METHOD 09/21/2024 8:46 AM [facility] eGFR 74 >=60 mL/min/1. 73m2 LAB CHEMISTRY METHOD 09/21/2024 8:46 AM [facility] Comment:Calculation based on the Chronic Kidney Disease Epidemiology Collaboration (CKD-EPI) equation refit without adjustment for race. BUN/Creatinine Ratio 15.5 LAB CHEMISTRY METHOD 09/21/2024 8:46 AM [facility] Calcium 11.2(H) 8.5 - 10.5 mg/dL LAB CHEMISTRY METHOD 09/21/2024 8:46 AM [facility] AST (SGOT) 29 10 - 42 unit/L LAB CHEMISTRY METHOD 09/21/2024 8:46 AM [facility] ALT (SGPT) 31 10 - 60 unit/L LAB CHEMISTRY METHOD 09/21/2024 8:46 AM [facility] Alkaline Phosphatase 107 42 - 121 unit/L LAB CHEMISTRY METHOD 09/21/2024 8:46 AM [facility] Total Protein 8.3(H) 6.0 - 8.0 g/dL LAB CHEMISTRY METHOD 09/21/2024 8:46 AM EDT [facility] Albumin 4.6 3.2 - 5.0 g/dL LAB CHEMISTRY METHOD 09/21/2024 8:46 AM EDT [facility] Total Bilirubin 0.4 0.0 - 1.4 mg/dL LAB CHEMISTRY METHOD 09/21/2024 8:46 AM EDT [facility] Blood Venous blood specimen / Unknown Venipuncture / Unknown 09/21/2024 7:48 AM EDT 09/21/2024 8:14 AM EDT us Lei Mario MD LAB BLOOD ORDERABLES Final Result [facility] ([facility]) [facility] [address] [place] [address], [place] [phone] from Last 3 Months Insurance MEDICARE MEDICAID - [place] Care Teams Bander Operator Relationship Specialty Start Date End Date Physician, Pcp Unknown PCP - General 09/21/24
--- OUTSIDE RECORDS SUMMARY | 2024-12-13 12:06 | XMS_ITS | Encounter Summary ---
Author Organization [employer] Address [address] [facility] [address] [place] [address] Care Team Providers Care Industry Analyst Name Role Phone Citlali Tee NP Primary Care Provider [phone] Reason for Visit * Reason Onset Date Comments Med Refill 09/06/2024 Encounter Details Date Type Department Care Team (Late st Contact Info) Description 09/06/2024 Refill [facility] [address] [place], [place] [phone] Sarah Mukherjee NP [address] [place], [place] [phone] Arthralgia of both hands Social History Tobacco [...] documented as of this encounter Care Teams Industry Analyst Relationship Specialty Start Date End Date Citlali Tee NP [address] [place] [address] PCP - General Family Medicine 07/14/23 documented as of this encounter
--- OUTSIDE RECORDS SUMMARY | 2024-12-13 12:06 | XMS_ITS | Clinical Summary ---
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
--- OUTSIDE RECORDS SUMMARY | 2024-12-13 12:06 | XMS_ITS | Clinical Summary ---
Author Organization [facility] Address [address] [place] [address] Care Team Providers Care Personal Finance Instructor Name Role Phone Americo Hu PA-C Primary Care Provider [phone] Source Comments PLEASE NOTE, if this patient [...] pressure) 02/13/2016 Rheumatoid arthritis involving both hands ([facility]) 02/01/2016 Resolved Problems Problem Noted Date Diagnosed [...] Description 09/15/2024 9:40 AM EDT Office Visit [address] [place] [address] Donnell Howell RHD from Last 3 Months [...] 05/27/2020 05/27/2019, 04/30/2018, 08/08/2016, Additional history exists [id number] ( season) 2024 07/17/2021, 09/25/2020, 09/04/2020 Falls [...] 1 AND 2 ANTIBODY SCREEN NEGATIVE NEGATIVE [facility] Comment: This assay is a 4th [...] AM EST 06/03/2019 9:46 AM EST Narrative [facility] - 06/03/2019 12:50 PM EST [employer]. [employer], [place] [address] [employer] - Dhara Flores MD PT ID [id number] ORD# [id number] [facility] - BLOOD [place] [address], * HEMOGLOBIN, GLYCOSYLATED (A1C) (06/03/2019 9:45 AM EST) GLYCATED HEMOGLOBIN A1C 5.1 <6.5 % [facility] ESTIMATED AVERAGE GLUCOSE 100 mg/dL [facility] Blood specimen (specimen) Blood / Unknown 06/03/2019 9:45 AM EST 06/03/2019 9:46 AM EST Narrative [facility] - 06/03/2019 12:31 PM EST [employer]. [employer], a member of [address] [address] [employer] - Dhara Flores MD PT ID [id number] ORD# [id number] [facility] - BLOOD DRAW Final Resu lt Performing Organization Address City/[facility]/ZIP [place] [address], * (ABNORMAL) LIPID PANEL (06/03/2019 9:44 AM EST) CHOLESTEROL 187 0 - 200 mg/dL [facility] TRIGLYCERIDES 73 0 - 150 mg/dL [facility] HDL CHOLESTEROL 58 >40 mg/dL [facility] LDL CALCULATED 115(H) 0 - 100 mg/dL [facility] TC-HDLC RATIO 3.2 0 - 4.4 mg/dL [facility] Blood specimen (specimen) Blood / Unknown 06/03/2019 9:44 AM EST 06/03/2019 9:46 AM EST Narrative [facility] - 06/03/2019 12:01 PM EST [employer]. [employer], a member of [address] [address] [employer] - Dhara Flores MD PT ID [id number] ORD# [id number] [facility] - BLOOD DRAW Final Resu lt Performing Organization Address City/[facility]/ZIP Co de Phone Number [address] [address], * (ABNORMAL) hepatitis ABC panel future (04/30/2018 9:50 AM EST) HEPATITIS B SURFACE ANTIBODY POSITIVE(A) NEGATIVE [facility] HEPATITIS B SURFACE ANTIGEN NEGATIVE NEGATIVE [facility] Comment: Over the counter supplements containing high doses of biotin may interfere with this assay. If interference is suspected, patients shoud be retested after refraining from biotin supplements for 72 hours. HEPATITIS C VIRUS DIAGNOSTIC NEGATIVE NEGATIVE [facility] HEPATITIS A ANTIBODY TOTAL POSITIVE(A) NEGATIVE [facility] Comment: Over the counter supplements containing high doses of biotin may interfere with this assay. If interference is suspected, patients shoud be retested after refraining from biotin supplements for 72 hours. HEPATITIS B CORE ANTIBODY POSITIVE(A) NEGATIVE [facility] Blood specimen (specimen) Blood / Unknown 04/30/2018 9:50 AM EST 04/30/2018 11:36 AM EST Narrative [facility] - 04/30/2018 7:16 PM EST [employer], [place] [address] [employer] - Janell Pollack MD PT ID [id number] ORD# [id number] Clinton Hanson MD LAB - BLOOD DRAW Edited [place] - [place] [address], from Last 3 Months or Most Recently Relevant to Health Maintenance Insurance [facility] ([facility]) Member Subscriber Plan / Payer (Ef fective 2019-Present) Name:Ag Gill Relation to Subscriber:Self Name:Ag Gill Payer ID:[id number] Group ID:Not on file Type:Indemnity Address: [address] [place] [address] [facility] [facility] [place] Care Teams Personal Finance Instructor Relationship Specialty Start Date End Date Americo Hu PA-C [address] [place] [address] PCP - General 10/12/21
[2024-12-13 13:26] LABS: Albumin Level 4.7 g/dL (3.5-5.0); Anion Gap 13 (12-20); Blood Urea Nitrogen 12 mg/dL (9-16); Calcium 10.4 mg/dL (8.4-10.2); Carbon Dioxide 23 mmol/L (22-29); Chloride 109 mmol/L (96-108); Estimated Glomerular Filt Rate > 60; Parathyroid Hormone Intact 207.2 pg/mL (8.7-77.1); Potassium 3.6 mmol/L (3.3-5.1); Sodium 141 mmol/L (135-145)
[2024-12-13 13:42] LABS: Prostate Specific Antigen 3.42 ng/mL (<0.05-4.0)
[2024-12-16 14:33] LABS: Calcium, Ionized 5.8 mg/dL (4.7-5.5)
== END 2024-12-13 11:30 | disposition home or self-care (01) ==
LOC: HO.10HDL 11:29
PROVIDERS: Nurse Practitioner Family; Visit Provider Student in an Organized Health Care Education/Training Program
DX: Z12.5 Encounter for screening for malignant neoplasm of prostate (principal); E83.52 Hypercalcemia; Z80.42 Family history of malignant neoplasm of prostate
CPT/HCPCS: 36415; 80048; 82040; 82306; 82330; 83970; 84100; 84153

== ENCOUNTER 2024-12-28 09:42 | Outpatient (AMB) | payer MEDICARE, MEDICAID, SELFPAY ==
--- NOTE | 2024-12-28 09:57 | A.OFFVIS_ITS ---
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 Intake Note: New dx palpitations c/o left side pain in side up to under the chest area Shank Stapler Required: No Allergies ibuprofen (From MOTRIN) Allergy (Intermediate, Verified 11/09/24 10:28) RASH latex Allergy (Intermediate, Verified 11/09/24 10:28) Rash Medication List - Last Reconciled 12/28/24 by Zheng Pal MD amlodipine 10 mg PO DAILY atorvastatin 10 mg PO DAILY cholecalciferol (vitamin D3) 50 mcg PO DAILY 1 month folic acid 1 mg PO DAILY methotrexate sodium 15 mg (6 x 2.5 mg) PO QWEEK 90 days olmesartan 40 mg PO DAILY HPI Comments Details: Thank you for referring Ag in cardiology consultation today for management of hypertension. Came in today saying that last year or year and half ago his hydrochlorothiazide was stopped. He has longstanding hypertension. Since then he has noted to have increased blood pressure. He has been switched from losartan to olmesartan and amlodipine is maximized. Notices blood pressure constantly between 140 to 150 systolic. Diastolic blood pressures are also slightly elevated. He does use methotrexate for rheumatoid arthritis. He was also diagnose with hypercalcemia which as per him probably led to discontinuation of hydrochlorothiazide but since then it seems like he has hyperparathyroidism. He said he can go up a flight of stairs or do other exercises without any significant shortness of breath chest discomfort however said he can not run up a flight of stairs. Denies any orthopnea, PND, leg edema. No lightheadedness, syncope. No prolonged palpitations or irregular heartbeat. 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 [facility] [facility] Review of Systems Const Denies chills, Denies daytime sleepiness, Denies fatigue, Denies fever(s), Denies frequent falls, Denies poor appetite, Denies snoring, Denies stops breathing during sleep, Denies weakness, Denies weight gain and Denies weight loss Eyes Denies loss of vision ENT Denies dizziness and Denies hearing loss Card Denies chest pain, Denies claudication, Denies leg edema, Denies lightheadedness, Denies palpitations, Denies dyspnea, Denies dyspnea on exertion and Denies orthopnea Resp Denies cough, Denies excessive phlegm production, Denies dyspnea, Denies dyspnea on exertion, Denies snoring and Denies wheezing GI Denies abdominal pain, Denies hematochezia, Denies change in bowel habits, Denies nausea and Denies vomiting Denies dysuria and Denies urinary frequency Musc Denies arthralgias, Denies muscle weakness and Denies numbness Skin/Breast Denies nail changes and Denies rash Neuro Denies Abnormal speech present, Denies dizziness, Denies frequent falls, Denies loss of vision, Denies memory loss, Denies numbness and Denies weakness Psych Denies depression and Denies memory loss Endo Denies fatigue and Denies palpitations Fazal/Lymph Reports easy bruising and Reports other (anemia) Aller/Immun Denies wheezing Physical Exam Vital Signs: Last Vital Signs Pulse 72 12/28/24 09:58 BP 142/80 H 12/28/24 09:58 BMI result Body Mass Index 30.8 Const General: cooperative, comfortable, no acute distress, well developed, alert, awake and Physically active Nutritional Appearance: well nourished and overweight Orientation/consciousness: patient oriented x3 Limitations: no limitations HEENT Head: Yes normocephalic and Yes atraumatic Neck Neck: Yes trachea midline, Yes supple and Yes no JVD Resp Effort & Inspection: normal respiratory effort Auscultation: clear to auscultation bilaterally Cardio Jugular venous distension: no JVD Palpation: normal PMI Rate: regular rate Rhythm: regular rhythm Heart sounds: S1 normal heart sound present, S2 normal heart sound present, no click, no gallops and no murmurs GI Auscultation: normal bowel sounds Skin General skin exam: no rashes or lesions noted Neuro General: patient oriented x3 and no focal motor deficits Speech: No Abnormal speech present Extrem General: Yes no clubbing, cyanosis or edema Psych Appearance: grossly normal Office Procedures EKG Details: EKG shows normal sinus rhythm with PACs with downsloping STs and T-wave inversions in inferior inferolateral leads [id number], Complete Assessment & Plan Assessment & Plan (1) Abnormal EKG: Code(s): R94.31 - Abnormal electrocardiogram [ECG] [EKG] Category: Medical Plan: Abnormal EKG in this elderly gentleman with risk factors of hypertension hyperlipidemia, possible etiology includes myocardial ischemia, hypertensive heart disease or hypertrophic cardiomyopathy. Will suggest an echocardiogram to assess for LV structure and function and to evaluate for LV systolic function and wall thickness as well as diastolic function. Also suggest exercise myocardial perfusion imaging to rule out myocardial ischemia. Further treatment based on the findings. (2) HTN (hypertension): Code(s): I10 - Essential (primary) hypertension Category: Medical Plan: Hypertension which remains uncontrolled off hydrochlorothiazide therapy. I think I would start him back on low-dose hydrochlorothiazide given that there is etiology for his hypercalcemia. Continue amlodipine and olmesartan therapy. If he tolerates all his therapy and blood pressures improved, can combine all of these street drugs in 1 pill. Follow-up electrolytes in 2 weeks time. Advised to monitor blood pressure at home and maintain a log. Goal blood pressure less than 130/84. Low-salt diet was addressed. He understands blood pressure management. Follow up in the clinic in 2 months time, sooner p.r.n.. Thank you for allowing me to partake in his care Orders: Orders CA echo transthoracic complete Today R94.31 - Abnormal electrocardiogram [ECG] [EKG] CA stress test Today R94.31 - Abnormal electrocardiogram [ECG] [EKG] NM cardiolite stress test 2 Weeks R07.9 - Chest pain, unspecified, R94.31 - Abnormal electrocardiogram [ECG] [EKG] Basic Metabolic Panel 2 Weeks R94.31 - Abnormal electrocardiogram [ECG] [EKG] Calcium 2 Weeks R94.31 - Abnormal electrocardiogram [ECG] [EKG] Medications: New hydrochlorothiazide 12.5 mg PO DAILY 30 tabs 5RF E83.52 - Hypercalcemia Coding Level of Care Code New Pt Level 4 (32678) Complex EM visit Add On G2211 Diagnoses Abnormal EKG R94.31 HTN (hypertension) I10 CPT Codes EKG - CPT: 81436-Isduthfgcgfveutpo, Complete ([id number])
[2024-12-28 09:58] VITALS: BP 142/80; PULSE 72; BMI 30.8
--- OUTSIDE RECORDS SUMMARY | 2024-12-28 10:21 | XMS_ITS | Clinical Summary ---
Author Organization [employer] Address [address] [facility] [address] [place] [address] Care Team Providers Care Unemployment Insurance Hearing Officer Name Role Phone Citlali Tee JANE Primary Care Provider [phone] Allergies Active Allergy Reactions Criticality Noted Date [...] cap. 16 g 2 025 2025 Active naproxen (Naprosyn) 500 MG tabletIndications :Arthralgia of both hands TAKE 1 TABLET(500 MG) BY MOUTH IN THE MORNING AND AT BEDTIME NEEDED FOR MODERATE PAIN 60 tablet 025 Active atorvastatin (Lipitor) 10 MG tabletIndications :Other hyperlipidemia TAKE 1 TABLET BY MOUTH EVERY DAY FOR HIGH CHOLESTEROL 90 tablet 025 Active atorvastatin (Lipitor) 10 MG tabletIndications :Other hyperlipidemia TAKE 1 TABLET BY MOUTH EVERY DAY FOR HIGH CHOLESTEROL 90 tablet 025 2024 Discontinued Active Problems Problem Noted Date Diagnosed Date [...] Encounters Date Type Department Care Team Description 12/06/2024 Refill [facility] [address] [place] [address] Citlali Tee NP Other hyperlipidemia 11/01/2024 Orders Only [facility] External Provider, [facility] from Last 3 Months Immunizations Immunization [...] Average Number of Drinks Not on file Frequency of Binge Drinking Not on file [...] 76 08/10/2024 11:36 AM EDT Temperature 35.7 C (96.2 F) 08/10/2024 11:36 AM EDT Respiratory Rate 18 08/10/2024 11:36 AM EDT [...] 1959 FIT 1959 FOBT 1960 Sigmoidoscopy 1959 Alcohol/Substance Use Screening 1971 Pneumococcal Vaccine: 50+ Years (1 of 1 - PCV) 2009 Hepatitis B Vaccines (2 of 3 - 19+ 3-dose series) 08/07/2023 07/10/2023 COVID-19 Vaccine (3 - 2023- season) 2024 07/17/2021, 09/25/2020, 09/04/2020 Depression Screening 07/27/2024 07/28/2023, 07/28/19 24 Influenza Vaccine (#1) 2025 , 05/27/2019, 04/30/2018, Additional history exists Diabetes: Hemoglobin A1C 03/08/20252 024, 10/24/2023, 09/18/2021, Additional history exists SDOH [...] Procedure Name Priority Date/Time Associated Diagnosis Comments CT ABDOMEN PELVIS W AND WO CONTRAST Routine 11/01/2024 10:41 AM EDT BASIC METABOLIC PANEL Routine 10/30/2024 7:59 AM EDT Hypertension, unspecified type Essential hypertension HEMOGLOBIN A1C Routine 03/08/2024 9:40 AM EST Mixed hyperlipidemia HEPATITIS PANEL, GENERAL Routine 10/24/2023 11:19 AM EDT LIPID PANEL, STANDARD Routine 07/14/2023 10:50 AM EDT Essential hypertension Arthralgia of both hands Mixed hyperlipidemia Primary hypertension HM COLONOSCOPY Routine 05/02/2022 from Last 3 Months or Most Recently Relevant to Health Maintenance Results * CT Abdomen Pelvis w/ and w/o Contrast (11/01/2024 10:41 AM EDT) Anatomical Region Laterality Modality Body, Pelvis, Abdomen Computed T omography 11/01/2024 10:4 1 AM EDT Narrative 11/01/2024 12:40 PM EDT [address] [address] [address] Scan Report Signed Patient: Ag Gill MR#: [id number] : 1960 Acct:[id number] Age/Sex: 64 / M ADM Date: 11/01/24 Loc: HO.CT Attending Dr: Azeb García [facility] Ordering Physician: Azeb García Date of Service: 11/01/24 Procedure(s): CT abdomen pelvis wo/w IV con Accession Number(s): [id number] cc: Citlali Tee PSYCHOLOGY LECTURER; Azeb García [facility] Report Number: [id number]: Total DLP = 892.00 mGy-cm EXAMINATION: CT ABDOMEN AND PELVIS WITHOUT AND WITH CONTRAST CLINICAL INFORMATION: Cyst of kidney. Complex cyst versus mass. COMPARISON: Correlated to renal ultrasound dated July 19, 2024. TECHNIQUE: Multidetector volumetric imaging was performed of the abdomen and pelvis before and after the IV administration of 85 mL of Omnipaque 350 strength intravenous contrast. Sagittal and coronal reformatted images were obtained on the technologist's workstation. DLP: [address] examination was performed using dose optimization techniques as appropriate, variously including the following: *Automated exposure control *Adjustment of mA and/or kV according to patient size (this includes techniques or standardized protocols for targeted exams where dose is matched to indication/reason for exam; i.e. extremities or head) *Use of iterative reconstruction technique FINDINGS: LUNG BASES: No acute airspace disease. LIVER, GALLBLADDER, AND BILIARY TREE: Liver measures 16 cm. Subcentimeter hypodensities. Main portal vein and hepatic veins and intrahepatic portion of the IVC are patent. No pericholecystic fluid collection or gallbladder wall thickening. Common bile duct measures 4 mm. PANCREAS: No focal mass. No main pancreatic ductal dilatation. No peripancreatic fluid collection. SPLEEN: 8 cm. No focal lesion. Small accessory spleen. ADRENAL GLANDS: Soft tissue fullness without gross nodular components. KIDNEYS AND URETERS: Right kidney: 1 mm calculus. No hydronephrosis. No renal mass. Multifocal areas of renal cortical defects. Normal enhancement pattern of the renal parenchyma. Left kidney: 1 mm calculi in the midportion and lower pole. No hydronephrosis. There is a well-defined 18 mm nonenhancing or septated fluid density lesion at the corticomedullary junction of the upper pole. There is a 5 mm nonenhancing fluid density in the posterior upper pole/midportion. There is a 13 mm nonenhancing septated fluid density in the anterior lateral midportion. There is a 36 mm, nonspecific, nonenhancing fluid density lesion at the corticomedullary junction of the posterior midportion/lower pole. There is a 5 mm nonenhancing fluid density in the posterior lower pole. There are renal cortical defects throughout the kidney. No focal enhancing mass. BLADDER: Fluid-filled. GASTROINTESTINAL TRACT: Abundant stool. No intestinal obstruction pattern. Appendicolith at the base of the appendix. The appendix is normal in caliber. Appendix is retrocecal. No intestinal wall thickening. No pneumatosis intestinalis. No pneumoperitoneum. No ascites. ABDOMINAL WALL: Small fat-containing umbilical hernia. Small fat-containing supraumbilical/epigastric hernias. LYMPH NODES: Nonspecific mildly prominent mesenteric. VASCULAR: No aneurysm or dissection, abdominal aorta. Calcified plaques in the distal abdominal aorta wall and iliac arteries. PELVIC VISCERA: Prominent prostate gland. OSSEOUS STRUCTURES: Multilevel thoracolumbar spondylosis. Varices L4-5 on a degenerative basis. Facet joint hypertrophy at L4-L5 S1. S-shaped curvature of the thoracolumbar spine. CT/CT abdomen pelvis wo/w IV con IMPRESSION: No renal mass. Bilateral Bosniak type I cysts. Bilateral nonobstructing nephrolithiasis. Subcentimeter hepatic cysts. Small fat-containing umbilical and supraumbilical/epigastric hernias. Spondylosis and grade 1 anterolisthesis L4-5. Fleischner guidelines were followed. Electronically signed by: Trevor Mckay MD 11/01/2024 12:38 PM EDT Dictated By: Trevor John MD Signed By: <Electronically signed by Trevor Juárez MD in OV> 11/01/24 1238 DD/ 1041 TD/TT: 11/01/24 1144 Loan Closer: Procedure Note Donotuseinterpreter, Image - 11/01/[address] [address] [address] Scan Report Signed Patient: Ag Gill HMR#: [id number] 185 : 1960cct:[id number] Age/Sex: 64 / MADM Date: 11/01/24 Loc: HO.CT [facility] Ordering Physician: Azeb García Date of Service: 11/01/24 Procedure(s): CT abdomen pelvis wo/w IV con Accession Number(s): [id number] cc: Citlali Tee PSYCHOLOGY LECTURER; Azeb García [facility] Report Number: [id number]: Total DLP = 892.00 mGy-cm EXAMINATION: CT ABDOMEN AND PELVIS WITHOUT AND WITH CONTRAST CLINICAL INFORMATION: Cyst of kidney. Complex cyst versus mass. COMPARISON: Correlated to renal ultrasound dated July 19, 2024. TECHNIQUE: Multidetector volumetric imaging was performed of the abdomen and pelvis before and after the IV administration of 85 mL of Omnipaque 350 strength intravenous contrast. Sagittal and coronal reformatted images were obtained on the technologist's workstation. DLP: [address] examination was performed using dose optimization techniques as appropriate, variously including the following: *Automated exposure control *Adjustment of mA and/or kV according to patient size (this includes techniques or standardized protocols for targeted exams where dose is matched to indication/reason for exam; i.e. extremities or head) *Use of iterative reconstruction technique FINDINGS: LUNG BASES: No acute airspace disease. LIVER, GALLBLADDER, AND BILIARY TREE: Liver measures 16 cm. Subcentimeter hypodensities. Main portal vein and hepatic veins and intrahepatic portion of the IVC are patent. No pericholecystic fluid collection or gallbladder wall thickening. Common bile duct measures 4 mm. PANCREAS: No focal mass. No main pancreatic ductal dilatation. No peripancreatic fluid collection. SPLEEN: 8 cm. No focal lesion. Small accessory spleen. ADRENAL GLANDS: Soft tissue fullness without gross nodular components. KIDNEYS AND URETERS: Right kidney: 1 mm calculus. No hydronephrosis. No renal mass. Multifocal areas of renal cortical defects. Normal enhancement pattern of the renal parenchyma. Left kidney: 1 mm calculi in the midportion and lower pole. No hydronephrosis. There is a well-defined 18 mm nonenhancing or septated fluid density lesion at the corticomedullary junction of the upper pole. There is a 5 mm nonenhancing fluid density in the posterior upper pole/midportion. There is a 13 mm nonenhancing septated fluid density in the anterior lateral midportion. There is a 36 mm, nonspecific, nonenhancing fluid density lesion at the corticomedullary junction of the posterior midportion/lower pole. There is a 5 mm nonenhancing fluid density in the posterior lower pole. There are renal cortical defects throughout the kidney. No focal enhancing mass. BLADDER: Fluid-filled. GASTROINTESTINAL TRACT: Abundant stool. No intestinal obstruction pattern. Appendicolith at the base of the appendix. The appendix is normal in caliber. Appendix is retrocecal. No intestinal wall thickening. No pneumatosis intestinalis. No pneumoperitoneum. No ascites. ABDOMINAL WALL: Small fat-containing umbilical hernia. Small fat-containing supraumbilical/epigastric hernias. LYMPH NODES: Nonspecific mildly prominent mesenteric. VASCULAR: No aneurysm or dissection, abdominal aorta. Calcified plaques in the distal abdominal aorta wall and iliac arteries. PELVIC VISCERA: Prominent prostate gland. OSSEOUS STRUCTURES: Multilevel thoracolumbar spondylosis. Varices L4-5 on a degenerative basis. Facet joint hypertrophy at L4-L5 S1. S-shaped curvature of the thoracolumbar spine. CT/CT abdomen pelvis wo/w IV con IMPRESSION: No renal mass. Bilateral Bosniak type I cysts. Bilateral nonobstructing nephrolithiasis. Subcentimeter hepatic cysts. Small fat-containing umbilical and supraumbilical/epigastric hernias. Spondylosis and grade 1 anterolisthesis L4-5. Fleischner guidelines were followed. Electronically signed by: Trevor Mckay MD 11/01/2024 12:38 PM EDT RP Dictated By: Trevor John MD Signed By: <Electronically signed by Trevor Juárez MDin OV> 11/01/24 1238 DD/ 1041 TD/TT: 11/01/24 1144 Loan Closer: [facility] External Provider IMG CT PROCEDURES Final Result * (ABNORMAL) Basic Metabolic Panel (10/30/2024 7:59 AM EDT) Sodium 139 135 - 145 mmol/L [facility] Potassium 3.9 3.3 - 5.1 mmol/L [facility] Chloride 107 96 - 108 mmol/L [facility] Carbon Dioxide 24 22 - 29 mmol/L [facility] Anion Gap 12 12 - 20 [facility] Urea Nitrogen (BUN) 18(H) 9 - 16 mg/dL [facility] Creatinine, Serum 1.26 0.5 - 1.4 mg/dL [facility] Estimated Glomerular Filt Rate 57 [facility] Comment:Chronic Kidney Disea se: Estimated GFR < 60 mL/min/1.82u0Itysmo Kidney Disease: Estimated GFR < 15 mL/min/1.73m2 Glucose 129(H) 60 - 115 mg/dL [facility] Calcium 10.2 8.4 - 10.2 mg/dL [facility] Blood Venous blood specimen / Unknown 10/30/2024 7:59 AM EDT 10/30/2024 7:59 AM EDT Citlali Tee PSYCHOLOGY LECTURER LAB BLOOD ORDERABLES Final Resul t [facility] [address] [place] [phone] * Hemoglobin A1c (03/08/2024 9:40 AM EST) Hemoglobin A1c 5.7 <6.0 % [facility] Comment:Hemoglobin A1C Refer ence Range Adults: 4.8 - 6.0 % Non diabetic: < 6.0 % Goal: < 7.0 %Additional Action Suggested: > 8.0 %Note: Hemoglobin A1c results are invalid for patients with abnormal amounts of HbF. Blood transfusions may impact the HbA1c concentration in the patient sample. Estimated Average Glucose 117 mg/dL [facility] Comment:eAG = Estimated ave rage glucose which is %A1C expressed asaverage glucose, using the formula of the A4Y-PxcsfcdWaunbib Glucose study (ADAG), Diabetes Care, Vol.31,#8,Dec. 2007 Blood Venous blood specimen / Unknown 03/08/2024 9:40 AM EST 03/08/2024 11:04 AM EST Citlali Tee NP LAB BLOOD ORDERABLES Final Resul t Performing Organization Address [facility] Co de Phone Number [facility] [address] [place] [phone] * Hepatitis Panel, General (10/24/2023 11:19 AM EDT) Hepatitis A IgM Nonreactive Nonreactive [facility] Comment:IgM antibodies to PITTS V not detected; does not exclude earlyacute or recovered HAV infection. ~Hepatitis B Surface Antibody REACTIVE Nonreactive [facility] Comment:REACTIVE: > 11.99 mI U/mL Hepatitis B Core Antibody Reactive Nonreactive [facility] Comment:Presumptive evidence of anti-HBc. Hepatitis C Antibody Nonreactive Nonreactive [facility] Comment:Antibodies to HCV no t detected; does not exclude early acuteHCV infection. Hepatitis B Surface Ag Negative Negative [facility] 10/24/2023 11:1 9 AM EDT 10/24/2023 11:19 AM EDT us Generic External Data Provider LAB BLOOD ORDERAB LES Final Result Performing Organization Address [facility] Co de Phone Number [facility] [address] [place] [phone] * Lipid Panel, Standard (07/14/2023 10:50 AM EDT) Triglycerides 100 <150 mg/dL [facility] Comment:Desirable Triglyceri de: less than 150 mg/dLBorderline High Triglyceride 150-199 mg/dLHigh Triglyceride: 200-499 mg/dLVery High Triglyceride: greater than or equal to 5OO mg/dL Cholesterol 137 <200 mg/dL [facility] Comment:Desirable Cholestero l: less than 200 mg/dLBorderline High Cholesterol: 200-239 mg/dLHigh Cholesterol: greater than 239 mg/dL LDL Cholesterol Calculated 74 <100 mg/dL [facility] Comment:Desirable LDL: less than 100 mg/dLNear Optimal/Above Optimal LDL: 110- 129 mg/dLBorderline High LDL: 130-159 mg/dLHigh LDL: 160-189 mg/dLVery High LDL: greater than or equal to 190 mg/dL HDL Cholesterol 43 >40 mg/dL [facility] Comment:Desirable HDL: great er than 40 mg/dL Note: This HDL assay may give artificially low results in patients with liver disease. Blood Venous blood specimen / Unknown 07/14/2023 10:50 AM EDT 07/14/2023 1:02 PM EDT Saba Hatfield MD LAB BLOOD ORDERABLES Final Result [facility] [address] [place] [phone] [phone] * Colonoscopy (05/02/2022) Colonoscopy Normal Normal Shawanda Feldman NP HEALTH MAINTENANCE Edited Resul t - Final from Last 3 Months or Most Recently Relevant to Health Maintenance Insurance , [address] [place] [address] [facility] STANDARD MEDICARE Care Teams Unemployment Insurance Hearing Officer Relationship Specialty Start Date End Date Citlali Tee NP [address] [place] [phone] PCP - General Family Medicine 07/14/23
--- OUTSIDE RECORDS SUMMARY | 2024-12-28 10:21 | XMS_ITS | Encounter Summary ---
Author Organization [employer] Address [address] [facility] [address] [place] [address] Care Team Providers Care Carpenter Inspector Name Role Phone Citlali Tee JANE Primary Care Provider [phone] Encounter Details Date Type Department Care Team (Late st Contact Info) Description 12/26/2023 Orders Only [facility] [address] [place] [address] Provider, MD Claude Social History Tobacco Use [...] documented as of this encounter Care Teams Carpenter Inspector Relationship Specialty Start Date End Date Citlali Tee NP [address] [place] [address] PCP - General Family Medicine 07/14/23 documented as of this encounter
--- OUTSIDE RECORDS SUMMARY | 2024-12-28 10:21 | XMS_ITS | Encounter Summary ---
Author Organization [employer] Address [address] [facility] 7t [place] [address] Care Team Providers Care Junior Web Developer Name Role Phone Citlali Tee JANE Primary Care Provider [phone] Reason for Visit * Reason Onset Date Comments Med Refill 09/06/2024 Encounter Details Date Type Department Care Team ([facility] st Contact Info) Description 09/06/2024 Refill [facility] [address] [place], [place] [phone] Name, MD Ayden [address] [place] [address] Other hyperlipidemia Social History Tobacco Use Types [...] documented as of this encounter Care Teams Junior Web Developer Relationship Specialty Start Date End Date Citlali Tee NP [address] [place] [id number] PCP - General Family Medicine 07/14/23 documented as of this encounter
--- OUTSIDE RECORDS SUMMARY | 2024-12-28 10:21 | XMS_ITS | Encounter Summary ---
Author Organization [employer] Address [address] [facility] 7t [place] [address] Care Team Providers Care Supervisor Rice Milling Name Role Phone Citlali Tee NP Primary Care Provider [phone] Reason for Visit * Reason Comments Med Refill Encounter Details Date Type Department Care Team (Late st Contact Info) Description 05/23/2024 Refill [facility] MEDICINE [address] [place], [place] [phone] Citlali Tee NP [address] [place], [place] [phone] Essential hypertension; Primary hypertension; Other hyperlipidemia Social [...] documented as of this encounter Care Teams Supervisor Rice Milling Relationship Specialty Start Date End Date Citlali Tee NP [address] [place] [id number] PCP - General Family Medicine 07/14/23 documented as of this encounter
--- OUTSIDE RECORDS SUMMARY | 2024-12-28 10:21 | XMS_ITS | Encounter Summary ---
Author Organization [employer] Address [address] [facility] 7t [place] [address] Care Team Providers Care Chemistry Lab Instructor Name Role Phone Citlali Tee JANE Primary Care Provider [phone] Reason for Visit * Reason Comments Med Refill Encounter Details Date Type Department Care Team (Late st Contact Info) Description 08/08/2023 Refill [facility] [address] [place], [place] [phone] Estelle Cain ANP [address] [place], [place] [phone] Essential hypertension; Primary hypertension Social History Tobacco [...] documented as of this encounter Care Teams Chemistry Lab Instructor Relationship Specialty Start Date End Date Citlali Tee NP [address] [place] [address] PCP - General Family Medicine 07/14/23 documented as of this encounter
--- OUTSIDE RECORDS SUMMARY | 2024-12-28 10:21 | XMS_ITS | Clinical Summary ---
Author Organization 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
--- OUTSIDE RECORDS SUMMARY | 2024-12-28 10:21 | XMS_ITS | Clinical Summary ---
Author Organization [facility] Address [address] [place] [address] Phone Care Team Providers Care Experimental Mechanic Electrical Name Role Phone Physician, Pcp Unknown Primary Care Provider Rupali vailable Allergies Active Allergy Reactions Criticality Noted Date Comments Adhesive 09/21/2024 Ibuprofen 10/30/2023 Latex Rash,Unknown Medium 02/01/2016 Stewart to skin Medications No known medications Medical History Medical History Date Comments Hypertension [...] Procedure Name Priority Date/Time Associated Diagnosis Comments COMPREHENSIVE METABOLIC PANEL STAT 09/21/2024 7:48 AM EDT from Last 3 Months or Most Recently Relevant to Health Maintenance Results * (ABNORMAL) Comprehensive metabolic panel (09/21/2024 7:48 [...] LAB CHEMISTRY METHOD 09/21/2024 8:46 AM EDT [facility] Alkaline Phosphatase 107 42 - 121 unit/L LAB CHEMISTRY METHOD 09/21/2024 8:46 AM EDT [facility] Total Protein 8.3(H) 6.0 - 8.0 g/dL LAB CHEMISTRY METHOD 09/21/2024 8:46 AM EDT [facility] Albumin 4.6 3.2 - 5.0 g/dL LAB CHEMISTRY METHOD 09/21/2024 8:46 AM EDT [facility] Total Bilirubin 0.4 0.0 - 1.4 mg/dL LAB CHEMISTRY METHOD 09/21/2024 8:46 AM T [facility] Blood Venous blood specimen / Unknown Venipuncture / Unknown 09/21/2024 7:48 AM EDT 09/21/2024 8:14 AM EDT us Lei Mario MD LAB BLOOD ORDERABLES Final Result [facility] [address] [place] [address], from Last 3 Months or Most Recently Relevant to Health Maintenance Insurance MEDICARE MEDICAID - [place] Care Teams Experimental Mechanic Electrical Relationship Specialty Start Date End Date Physician, Pcp Unknown PCP - General 09/21/24
--- OUTSIDE RECORDS SUMMARY | 2024-12-28 10:21 | XMS_ITS | Clinical Summary ---
Author Organization [facility] Address [address] [place] [address] Care Team Providers Care Nurse Practitioner Physician Assistant Name Role Phone Americo Hu PA-C Primary Care Provider [phone] Source Comments PLEASE NOTE, if this patient [...] pressure) 02/13/2016 Rheumatoid arthritis involving both hands ([facility]) 02/01/2016 Resolved Problems Problem Noted Date Diagnosed Date Resolved Date Chronic left shoulder pain 12/23/2017 0 05/27/2019 Overview (12/23/2017): X-ray showed large well corticated fracture which appers catrachito from scapula and does not appear to be acute Referred to Orthopedic Closed fracture of left scapula 12/23/2017 05/27/2019 Overview (12/23/2017): Pt was referred to Ortho H/O urinary stone 02/13/2016 05/27/2019 Immunizations Immunization Administration Dates Next Due Flu, [...] 05/27/2020 05/27/2019, 04/30/2018, 08/08/2016, Additional history exists [id number] (2023- season) 2024 07/17/2021, 09/25/2020, 09/04/2020 Falls Prevention [...] :40 AM EDT Encounter for dental examination PERIODIC [...] HIV-2 ANTIBODIES (06/03/2019 9:45 AM EST) Pathologist [facility] HIV 1 AND 2 ANTIBODY SCREEN NEGATIVE NEGATIVE [facility] Comment: This assay is a 4th [...] 9:45 AM EST 06/03/2019 9:46 AM EST [facility] - 06/03/2019 12:50 PM EST [employer], [place] [address] Cat Breeder - Dhara Flores MD PT ID [id number] ORD# [id number] Mercedes RAMIREZ LAB - BLOOD DRAW Final Resu lt Performing Organization Address [facility] [place] [address], * HEMOGLOBIN, GLYCOSYLATED (A1C) (06/03/2019 9:45 AM EST) [facility] GLYCATED HEMOGLOBIN A1C 5.1 <6.5 % [facility] ESTIMATED AVERAGE GLUCOSE 100 mg/dL [facility] Blood specimen (specimen) Blood / Unknown 06/03/2019 9:45 AM EST 06/03/2019 9:46 AM EST [facility] - 06/03/2019 12:31 PM EST [employer], a member of [address] [address] Cat Breeder - Dhara Flores MD PT ID [id number] ORD# [id number] Mercdees RAMIREZ LAB - BLOOD DRAW Final Resu lt Performing Organization Address City/[facility] [place] [address], * (ABNORMAL) LIPID PANEL (06/03/2019 9:44 AM EST) CHOLESTEROL 187 0 - 200 mg/dL [facility] TRIGLYCERIDES 73 0 - 150 mg/dL [facility] HDL CHOLESTEROL 58 >40 mg/dL [facility] LDL CALCULATED 115(H) 0 - 100 mg/dL [facility] TC-HDLC RATIO 3.2 0 - 4.4 mg/dL [facility] Blood specimen (specimen) Blood / Unknown 06/03/2019 9:44 AM EST 06/03/2019 9:46 AM EST Narrative [facility] - 06/03/2019 12:01 PM EST [employer] [address] Cat Breeder - Dhara Flores MD PT ID [id number] ORD# [id number] Mercedes Broderick [facility] LAB - BLOOD DRAW Final Resu lt Performing Organization Address City/State/[facility] [place] [address], * (ABNORMAL) hepatitis ABC panel future (04/30/2018 9:50 AM EST) HEPATITIS B SURFACE ANTIBODY POSITIVE(A) NEGATIVE [facility] HEPATITIS B SURFACE ANTIGEN NEGATIVE NEGATIVE [facility] Comment: Over the counter supplements containing high doses of biotin may interfere with this assay. If interference is suspected, patients shoud be retested after refraining from biotin supplements for 72 hours. HEPATITIS C VIRUS DIAGNOSTIC NEGATIVE NEGATIVE [facility] HEPATITIS A ANTIBODY TOTAL POSITIVE(A) NEGATIVE [facility] Comment: Over the counter supplements containing high doses of biotin may interfere with this assay. If interference is suspected, patients shoud be retested after refraining from biotin supplements for 72 hours. HEPATITIS B CORE ANTIBODY POSITIVE(A) NEGATIVE [facility] Blood specimen (specimen) Blood / Unknown 04/30/2018 9:50 AM EST 04/30/2018 11:36 AM EST Narrative [facility] - 04/30/2018 7:16 PM EST [employer], a member of [address] [address] Cat Breeder - Janell Pollack MD PT ID [id number] ORD# [id number] Clinton Hanson MD LAB - BLOOD DRAW Edited Result - Final [facility] [address], from Last 3 Months or Most Recently Relevant to Health Maintenance Insurance HNE ([facility]) Member Subscriber Plan / Payer (Ef fective 2019-Present) Name:Ag Gill Relation to Subscriber:Self Name:Ag Gill Payer ID:[id number] Group ID:Not on file Type:[employer] Address: [address] [place] [id number] [place] [address] [place] Care Teams Nurse Practitioner Physician Assistant Relationship Specialty Start Date End Date Americo Hu PA-C [address] [place] [id number] [facility] - General 10/12/21
--- OUTSIDE RECORDS SUMMARY | 2024-12-28 10:21 | XMS_ITS | Encounter Summary ---
Author Organization [employer] Address [address] [facility] 7t [place] [address] Care Team Providers Care Complaint Specialist Name Role Phone Estelle Cain GINI Primary Care Provider [phone] Citlali Tee PECAN GROWER Primary Care Provider [phone] Encounter Details Date Type Department Care Team (Late st Contact Info) Description 04/16/2023 Orders Only [facility] PEDS [address] [place] [address] Susan Pimentel LPN Social History Tobacco Use [...] FACTOR Routine 10/24/2023 11: 19 AM EDT [id number] G ENZYME Routine 10/24/2023 11:19 AM EDT [...] IMMUNOGLOBULIN G 1340 600 - 1540 mg/dL [facility] IMMUNOGLOBULIN A 233 70 - 320 mg/dL [facility] Immunoglobulin M 84 50 - 300 mg/dL [facility] Comment:THIS TEST WAS PERFOR MED AT:[employer] [place] [phone] BLANCHARD MD Immunofixation Result SEE NOTE [facility] Comment:Normal pattern. No m onoclonal proteins detected. 10/24/2023 11:1 9 AM EDT 10/24/2023 11:19 AM EDT us Generic External Data Provider LAB BLOOD ORDERAB LES Final Result [facility] [address] [place] [phone] * (ABNORMAL) Angiotensin -1- Converting Enzyme (10/24/2023 11:19 AM EDT) Pathologist [facility] Angiotensin Converting Enzyme 70(A) 9 - 67 U/L [facility] Comment:THIS TEST WAS PERFOR MED AT:[facility] [place] [address]THXUFPBTYLER DU MD,PHD 10/24/2023 11:1 9 AM EDT 10/24/2023 11:19 AM EDT us Generic External Data Provider LAB BLOOD ORDERAB LES Final Result [facility] [address] [place] [address] [phone] * (ABNORMAL) Protein Electrophoresis and [place]/Lambda Light Chains (10/24/2023 11:19 AM EDT) Pathologist [facility] Prot Elec - Total Protein 8.2(A) 6.1 - 8.1 g/dL [facility] Prot Elec - Albumin 4.7 3.8 - 4.8 g/dL [facility] Prot Elec - Alpha1 0.3 0.2 - 0.3 g/dL [facility] Prot Elec - Alpha2 0.8 0.5 - 0.9 g/dL [facility] Prot Elec - Beta 1 0.6 0.4 - 0.6 g/dL [facility] Prot Elec - Beta 2 0.3 0.2 - 0.5 g/dL [facility] Prot Elec - Gamma 1.5 0.8 - 1.7 g/dL [facility] PES - Abn Protein Band 1 [facility] PES-Abn Protein Band 2 [facility] PES-Abn Protein Band 3 [facility] Prot Elec - Interpretation SEE NOTE [facility] Comment:Normal Serum Protein Electrophoresis Pattern.No abnormal protein bands (M-protein) detected.THIS TEST WAS PERFORMED AT:[employer] [place] [phone] BLANCHARD MD 10/24/2023 11:1 9 AM EDT 10/24/2023 11:19 AM EDT us Generic External Data Provider LAB BLOOD ORDERAB LES Final Result [facility] [address] [place] [phone] * SHERYL Screen,IFA, with Reflex to Titer and Pattern (10/24/2023 11:19 AM EDT) Anti Nuclear Antibody Screen NEGATIVE NEGATIVE [facility] Comment:SHERYL IFA is a first [...] clinicallysuspected inflammatory myopathies.AC-0: NegativeInternational Consensus on SHERYL Patterns(https://doi.org/10.1515/doil-5331-6770)For additional information, please refer tohttp://education.Extend [employer]/faq/LUB808(This link is being provided for informational/educational purposes only.)THIS TEST WAS PERFORMED AT:[employer] [place] [phone] BLANCHARD MD SHERYL Titer TNP [facility] SHERYL Pattern TNP [facility] SHERYL TITER 2 (REF LAB) TNP [facility] SHERYL Pattern 2 TNP [facility] 3 [facility] SH[facility]L PATTERN 3 [facility] 10/24/2023 11:1 9 AM EDT 10/24/2023 11:19 AM EDT Generic External Data Provider LAB BLOOD ORDERAB LES Final Result Performing Organization Address [facility] Co de Phone Number [facility] [address] [place] [phone] * Cyclic Citrullinated Peptide (CCP) Antibody (IgG) (10/24/2023 11:19 AM EDT) Pathologist [facility] Cyclic Citrullinated Peptide <16 UNITS [facility] Comment:Reference RangeNegat travis: <20Weak Positive: 20-39Moderate Positive: 40-59Strong Positive: >59THIS TEST WAS PERFORMED AT:[employer] [place] [phone] BLANCHARD MD 10/24/2023 11:1 9 AM EDT 10/24/2023 11:19 AM EDT Generic External Data Provider LAB BLOOD ORDERAB LES Final Result Performing Organization Address [facility] de Phone Number [facility] [address] [place] [phone] * HIV-1/2 Antigen and Antibodies, Fourth Generation, with Reflexes (10/24/2023 11:19 AM EDT) [facility] HIV AB/AG Nonreactive Nonreactive [facility] Comment:HIV-1 p24 Ag and/or HIV-1/HIV-2 Ab not detected.A test result that is nonreactive does not exclude thepossibility of exposure to or infection with HIV-1 and/orHIV-2. Nonreactive results in this assay for individualswith prior exposure to HIV-1 and/or HIV-2 may be due toantigen and antibody levels that are below the limit ofdetection of this assay.The [employer] HIV Ag/Ab Combo assay result andsupplemental assay results should be interpreted inconjunction with the patient's clinical presentation,history and other laboratory results. If the results areinconsistent with clinical evidence, additional testing issuggested to confirm the result. 10/24/2023 11:1 9 AM EDT 10/24/2023 11:19 AM EDT Generic External Data Provider LAB BLOOD ORDERAB LES Final Result Performing Organization Address [facility] Co de Phone Number [facility] [address] [place] [phone] * Hepatitis Panel, General (10/24/2023 11:19 AM EDT) Pathologist [facility] Hepatitis A IgM Nonreactive Nonreactive [facility] Comment:IgM antibodies to PITTS V not detected; does not exclude earlyacute or recovered HAV infection. ~Hepatitis B Surface Antibody REACTIVE Nonreactive [facility] Comment:REACTIVE: > 11.99 mI U/mL Hepatitis B Core Antibody Reactive Nonreactive [facility] Comment:Presumptive evidence of anti-HBc. Hepatitis C Antibody Nonreactive Nonreactive [facility] Comment:Antibodies to HCV no t detected; does not exclude early acuteHCV infection. Hepatitis B Surface Ag Negative Negative [facility] 10/24/2023 11:1 9 AM EDT 10/24/2023 11:19 AM EDT [employer] External Data Provider LAB BLOOD ORDERAB LES Final Result Performing Organization Address [facility] de Phone Number [facility] [address] [place] [phone] * T-SPOT??.TB (10/24/2023 11:19 AM EDT) Pathologist [facility] T Spot TB Negative Negative [facility] Comment:A negative test resu lt [...] as aquantitative test. TS PANEL A 0 [facility] TS PANEL B 0 [facility] Negative Control Passed [facility] Positive Control Passed [facility] Comment:For additional infor matumair, please refer tohttp://education.Newsy/faq/ORZ361(This link is being provided for informational/educational purposes only.)THIS TEST WAS PERFORMED AT:[facility] [address] [place] [phone] DU MD,PHD 10/24/2023 11:1 9 AM EDT 10/24/2023 11:19 AM EDT us Generic External Data Provider LAB BLOOD ORDERAB LES Final Result Performing Organization Address City/[facility]/ZIP Co de Phone Number [facility] [address] [place] [phone] * Sed Rate by Modified Vikergren (10/24/2023 11:19 AM EDT) Erythrocyte Sedimentation Rate 7 0 - 15 MM/HR [facility] Comment:Patients with polycy themia and many hemoglobin abnormalitiesmay have depressed sed rates whereas patients with anemiamay have elevated sed rates. 10/24/2023 11:1 9 AM EDT 10/24/2023 11:19 AM EDT us Generic External Data Provider LAB BLOOD ORDERAB LES Final Result Performing Organization Address [facility]/ZIP Co de Phone Number [facility] [address] [place] [phone] * C-reactive Protein (10/24/2023 11:19 AM EDT) C Reactive Protein 0.16 < or = 0.50 mg/dL [facility] 10/24/2023 11:1 9 AM EDT 10/24/2023 11:19 AM EDT us Generic External Data Provider LAB BLOOD ORDERAB LES Final Result [facility] [address] [place] [phone] * (ABNORMAL) Comprehensive Metabolic Panel (10/24/2023 11:19 AM EDT) Sodium 140 135 - 145 mmol/L [facility] Potassium 3.7 3.3 - 5.1 mmol/L [facility] Chloride 107 96 - 108 mmol/L [facility] Carbon Dioxide 28 22 - 29 mmol/L [facility] Anion Gap 9(L) 12 - 20 [facility] Urea Nitrogen (BUN) 18(H) 9 - 16 mg/dL [facility] Creatinine, Serum 0.99 0.5 - 1.4 mg/dL [facility] Estimated Glomerular Filt Rate >60 [facility] Comment:NOTE: For -Am erican individuals, multiply the result by 1.210.Chronic Kidney Disease: Estimated GFR < 60 mL/min/1.40e8Jhyaog Kidney Disease: Estimated GFR < 15 mL/min/1.73m2 Glucose 105 60 - 115 mg/dL [facility] Calcium 11.3(H) 8.4 - 10.2 mg/dL [facility] Bilirubin, Total 0.5 0.0 - 1.0 mg/dL [facility] Aspartate Amino Transferase 28 5 - 37 U/L [facility] Alanine Aminotransferase 22 0 - 40 U/L [facility] Total Protein 7.8 6.5 - 8.0 g/dL [facility] Albumin Level 4.5 3.5 - 5.0 g/dL [facility] Alkaline Phosphatase 74 39 - 117 U/L [facility] 10/24/2023 11:1 9 AM EDT 10/24/2023 11:19 AM EDT us Generic External Data Provider LAB BLOOD ORDERAB LES Final Result Performing Organization Address [facility] Co de Phone Number [facility] [address] [place] [address] [phone] * Rheumatoid Factor (10/24/2023 11:19 AM EDT) Rheumatoid Factor <13.0 <15.0 IU/mL [facility] 10/24/2023 11:1 9 AM EDT 10/24/2023 11:19 AM EDT us Generic External Data Provider LAB BLOOD ORDERAB LES Final Result Performing Organization Address [facility] Co mi Phone Number [facility] [address] [place] [address] [phone] * Hemoglobin A1c (10/24/2023 11:19 AM EDT) Hemoglobin A1c 5.5 <6.0 % [facility] Comment:Hemoglobin A1C Refer ence Range Adults: 4.8 - 6.0 % Non diabetic: < 6.0 % Goal: < 7.0 %Additional Action Suggested: > 8.0 %Note: Hemoglobin A1c results are invalid for patients with abnormal amounts of HbF. Blood transfusions may impact the HbA1c concentration in the patient sample. Estimated Average Glucose 111 mg/dL [facility] Comment:eAG = Estimated ave rage glucose which is %A1C expressed asaverage glucose, using the formula of the C8P-RkwoqhpHidsusf Glucose study (ADAG), Diabetes Care, Vol.31,#8,Dec. 2007 10/24/2023 11:1 9 AM EDT 10/24/2023 11:19 AM EDT us Generic External Data Provider LAB BLOOD ORDERAB LES Final Result Performing Organization Address [facility]/ZIP Co de Phone Number [facility] [address] [place] [phone] * (ABNORMAL) CBC auto differential (10/24/2023 11:19 AM EDT) White Blood Count 4.4(L) 4.8 - 10.8 X10*3/uL [facility] Red Blood Count 4.15(L) 4.60 - 5.80 X10*6/uL [facility] Hemoglobin 12.4(L) 14.0 - 18.0 g/dl [facility] Hematocrit 37.7(L) 42.0 - 52.0 % [facility] Mean Corpuscular Volume 90.8 80.0 - 98.0 fL [facility] Mean Corpuscular Hemoglobin 29.9 27.0 - 33.0 pg [facility] Mean Corpuscular HGB Conc 32.9 31.0 - 36.0 g/dl [facility] Red Cell Distribution Width 12.7 11.0 - 16.0 % [facility] Platelet Count 277 160 - 400 X10*3/uL [facility] Mean Platelet Volume 10.3 9.4 - 12.4 fL [facility] Neutrophils Percent Auto 50.4 45 - 73 % [facility] Imm Gran Pct Auto 0.5(H) 0.0 - 0.4 % [facility] Lymphocytes Percent Auto 33.9 20 - 40 % [facility] Monocytes Percent Auto 10.0 2 - 11 % [facility] Eosinophils Percent Auto 4.3(H) 0 - 4 % [facility] Basophils Percent Auto 0.9 0 - 2 % [facility] NRBC Pct Auto 0.0 0.0 - 0.2 /100WBC [facility] Neutrophils Absolute Auto 2.2 2.0 - 8.3 x10*3/uL [facility] Imm Gran Abs Auto 0.02 0.00 - 0.03 X10*3/uL [facility] Lymphocytes Absolute Auto 1.5 1.2 - 4.9 X10*3/uL [facility] Monocytes Absolute Auto 0.4 0.1 - 1.2 X10*3/uL [facility] Eosinophils Absolute Auto 0.2 0.0 - 0.4 X10*3/uL [facility] Basophils Absolute Auto 0.0 0.0 - 0.2 X10*3/uL [facility] NRBC Abs Auto 0.000 0.0 - 0.012 X10*3/uL [facility] 10/24/2023 11:1 9 AM EDT 10/24/2023 11:19 AM EDT us Generic External Data Provider LAB BLOOD ORDERAB LES Final Result Performing Organization Address City/State/[facility] Co de Phone Number [facility] [address] [place] [phone] documented in this encounter Visit Diagnoses Not on filedocumented in this encounter Care Teams Complaint Specialist Relationship Specialty Start Date End Date Estelle Cain ANP [address] [place] [address] PCP - General Family Medicine 12/26/21 07/13/23 Citlali Tee NP [address] [place] [address] PCP - General Family Medicine 07/14/23 documented as of this encounter
--- OUTSIDE RECORDS SUMMARY | 2024-12-28 10:21 | XMS_ITS | Encounter Summary ---
Author Organization [employer] Address [address] [facility] [address]t [place] [address] Care Team Providers Care Oven Press Tender Name Role Phone Citlali Tee NP Primary Care Provider [phone] Reason for Visit * Reason Onset Date Comments Med Refill 09/06/2024 Encounter Details Date Type Department Care Team (Late st Contact Info) Description 09/06/2024 Refill [facility] [address] [place], [place] [phone] Sarah Mukherjee NP [address] [place], [place] [phone] Arthralgia of both hands Social History Tobacco [...] documented as of this encounter Care Teams Oven Press Tender Relationship Specialty Start Date End Date Citlali Tee NP [address] [place] [phone] PCP - General Family Medicine 07/14/23 documented as of this encounter
== END 2024-12-28 10:38 | disposition home or self-care (01) ==
LOC: HO.HCS 09:42
PROVIDERS: PCP Nurse Practitioner Family; Visit Provider Internal Medicine Cardiovascular Disease
DX: R94.31 Abnormal electrocardiogram [ECG] [EKG] (principal); I10 Essential (primary) hypertension
CPT/HCPCS: 93010; 99204; G2211

== ENCOUNTER → 2024-12-28 09:42 | Outpatient (BNVA) | payer MEDICARE, MEDICAID, SELFPAY | PROVIDERS: PCP Nurse Practitioner Family; Visit Provider Internal Medicine Cardiovascular Disease | DX: R94.31 Abnormal electrocardiogram [ECG] [EKG] (principal); I10 Essential (primary) hypertension; I49.1 Atrial premature depolarization | CPT/HCPCS: 93005; 99202 ==

== ENCOUNTER 2025-01-07 09:12 | Outpatient (REF) | payer MEDICARE, MEDICAID, SELFPAY ==
--- OUTSIDE RECORDS SUMMARY | 2025-01-07 09:57 | XMS_ITS | Encounter Summary ---
Author Organization [employer] Address [address] [facility] [address] [place] [address] Care Team Providers Care Associate Director Of Biostatistics Name Role Phone Citlali Tee JANE Primary Care Provider [phone] Encounter Details Date Type Department Care Team (Late st Contact Info) Description 12/26/2023 Orders Only [facility] [address] [place] [address] Provider, MD Claude Social History Tobacco Use [...] documented as of this encounter Care Teams Associate Director Of Biostatistics Relationship Specialty Start Date End Date Citlali Tee NP [address] [place] [address] PCP - General Family Medicine 07/14/23 documented as of this encounter
--- OUTSIDE RECORDS SUMMARY | 2025-01-07 09:57 | XMS_ITS | Encounter Summary ---
Author Organization [employer] Address [address] [facility] [address]t [place] [address] Care Team Providers Care Brake Machine Operator Name Role Phone Citlali Tee NP Primary Care Provider [phone] Reason for Visit * Reason Onset Date Comments Med Refill 09/06/2024 Encounter Details Date Type Department Care Team (Late st Contact Info) Description 09/06/2024 Refill [facility] MED[facility] [address] [place], [place] [phone] Sarah Mukherjee NP [address] [place], [place] [phone] Arthralgia of both hands Social History Tobacco [...] documented as of this encounter Care Teams Brake Machine Operator Relationship Specialty Start Date End Date Citlali Tee NP [address] [place] [phone] PCP - General Family Medicine 07/14/23 documented as of this encounter
--- OUTSIDE RECORDS SUMMARY | 2025-01-07 09:57 | XMS_ITS | Clinical Summary ---
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
--- OUTSIDE RECORDS SUMMARY | 2025-01-07 09:57 | XMS_ITS | Encounter Summary ---
Author Organization [employer] Address [address] [facility] [address]t [place] [address] Care Team Providers Care Emergency Generator Mechanic Name Role Phone Citlali Tee JANE Primary Care Provider [phone] Reason for Visit * Reason Onset Date Comments Med Refill 09/06/2024 Encounter Details Date Type Department Care Team ([facility] st Contact Info) Description 09/06/2024 Refill [facility] [address] [place], [place] [phone] Name, MD Ayden [address] [place] [address] Other hyperlipidemia Social History Tobacco Use Types [...] documented as of this encounter Care Teams Emergency Generator Mechanic Relationship Specialty Start Date End Date Citlali Tee NP [address] [place] [phone] PCP - General Family Medicine 07/14/23 documented as of this encounter
--- OUTSIDE RECORDS SUMMARY | 2025-01-07 09:57 | XMS_ITS | Clinical Summary ---
Author Organization [facility] Address [address] [place] [phone] Phone Care Team Providers Care Interpretative Dancer Name Role Phone Physician, Pcp Unknown Primary [...] 3 - 19+ 3-dose series) 08/07/2023 07/10/2023 Falls Risk Assessment 2024 Depression Screening 05/05/2024 COVID-19 Vaccine ( season) 2025 07/17/2021, 09/25/2020, 09/04/2020 Influenza Vaccine (#1) 2025 , 05/27/2019, 04/30/2018, [...] 09/21/2024 8:46 AM EDT [facility] Alkaline Phosphatase 107 42 - 121 unit/L LAB CHEMISTRY METHOD 09/21/2024 8:46 AM EDT [facility] Total Protein 8.3(H) 6.0 - 8.0 g/dL LAB CHEMISTRY METHOD 09/21/2024 8:46 AM EDT [facility] Albumin 4.6 3.2 - 5.0 g/dL LAB CHEMISTRY METHOD 09/21/2024 8:46 AM EDT [facility] Total Bilirubin 0.4 0.0 - 1.4 mg/dL LAB CHEMISTRY METHOD 09/21/2024 8:46 AM T [facility] Blood Venous blood specimen / Unknown Venipuncture / Unknown 09/21/2024 7:48 AM EDT 09/21/2024 8:14 AM EDT us Lei Mario MD LAB BLOOD ORDERABLES Final Result [facility] [address] [place] [address], from Last 3 Months or Most Recently Relevant to Health Maintenance Insurance MEDICARE MEDICAID - [place] Care Teams Interpretative Dancer Relationship Specialty Start Date End Date Physician, Pcp Unknown PCP - General 09/21/24
--- OUTSIDE RECORDS SUMMARY | 2025-01-07 09:57 | XMS_ITS | Encounter Summary ---
Author Organization [employer] Address [address] [facility] [address]t [place] [address] Care Team Providers Care Referral Management Liaison Name Role Phone Citlali Tee NP Primary Care Provider [phone] Reason for Visit * Reason Comments Med Refill Encounter Details Date Type Department Care Team (Late st Contact Info) Description 05/23/2024 Refill [facility] MEDICINE [address] [place], [place] [phone] Citlali Tee NP [address] [place], [place] [phone] Essential hypertension; Primary hypertension; Other hyperlipidemia Social [...] documented as of this encounter Care Teams Referral Management Liaison Relationship Specialty Start Date End Date Citlali Tee NP [address] [place] [phone] PCP - General Family Medicine 07/14/23 documented as of this encounter
--- OUTSIDE RECORDS SUMMARY | 2025-01-07 09:57 | XMS_ITS | Clinical Summary ---
Author Organization [employer] Address [address] [facility] [address] [place] [address] Care Team Providers Care Astro Technician Name Role Phone Citlali Tee JANE Primary Care Provider [phone] Allergies Active Allergy Reactions Criticality Noted Date Comments Aspirin Unknown High 03/09/2016 Pt states stomach pain and stomach bleed when taking this medication. Ibuprofen 10/30/2023 Latex Unknown Medium 02/01/2016 Stewart to skin Medications amLODIPine (Norvasc) 10 MG tabletIndications: Essential hypertension,Prima ry hypertension TAKE 1 TABLET(10 MG) BY MOUTH IN THE MORNING 90 tablet 1 07/27/19 25 Active olmesartan (Benicar) 40 MG tablet Take 1 tablet (40 mg) by mouth Once per day. 90 tablet 3 08/11/19 25 026 Active fluticasone (Flonase) 50 MCG/ACT nasal sprayIndications:S easonal allergic rhinitis due to pollen Administer 1-2 sprays into each nostril Once per day. Shake gently. Before first use, prime pump. After use, clean tip and replace cap. 16 g 2 08/11/19 25 026 Active naproxen (Naprosyn) 500 MG tabletIndications: Arthralgia of both hands TAKE 1 TABLET(500 MG) BY MOUTH IN THE MORNING AND AT BEDTIME NEEDED FOR MODERATE PAIN 60 tablet 09/08/19 25 Active atorvastatin (Lipitor) 10 MG tabletIndications: Other hyperlipidemia TAKE 1 TABLET BY MOUTH EVERY DAY FOR HIGH CHOLESTEROL 90 tablet 12/08/19 25 Active Active Problems Problem Noted Date [...] Type Department Care Team Description 12/06/2024 Refill [facility] [address] [place] [address] Citlali Tee NP Other hyperlipidemia 11/01/2024 Orders Only [facility] External Provider, [facility] from Last 3 Months Immunizations Immunization [...] 3 - 19+ 3-dose series) 08/07/2023 07/10/2023 Depression Screening 07/27/2024 07/28/2023, 07/28/19 24 COVID-19 Vaccine (3 - 2024- season) 2025 07/17/2021, 09/25/2020, 09/04/2020 Influenza Vaccine (#1) 2025 , 05/27/2019, 04/30/2018, Additional history exists Diabetes: Hemoglobin A1C 03/08/2025 024, 10/24/2023, 09/18/2021, [...] AM EDT Narrative 11/01/2024 12:40 PM EDT [address] [address] [address] Scan Report Signed Patient: Ag Gill MR#: [id number] : 1960 Acct:[id number] Age/Sex: 64 / M ADM Date: 11/01/24 Loc: HO.CT Attending Dr[facility] Ordering Physician: Azeb García Date of Service: 11/01/24 Procedure(s): CT abdomen pelvis wo/w IV con Accession Number(s): [id number] cc: Citlali Tee CLOTHES IRONER; Azeb García [facility] Report Number: [id number]: Total DLP = 892.00 mGy-cm EXAMINATION: CT [...] 11/01/2024 12:38 PM EDT Dictated By: Trevor Jonh MD Signed By: <Electronically signed by Trevor Juárez MD in OV> 11/01/24 1238 DD/ 1041 TD/TT: 11/01/24 1144 Detasseling Crew Supervisor: Procedure Note Donotuseinterpreter, Image - 11/01/[address] [address] [address] Scan Report Signed Patient: Ag Gill HMR#: [id number] : 9Acct:[id number] Age/Sex: 64 / MADM Date: 11/01/24 Loc: HO.CT Attending Dr: [facility] Ordering Physician: Azeb García Date of Service: 11/01/24 Procedure(s): CT abdomen pelvis wo/w IV con Accession Number(s): [id number] cc: Citlali Tee CLOTHES IRONER; Azeb García [facility] Report Number: [id number]: Total DLP = 892.00 mGy-cm EXAMINATION: CT [...] 11/01/24 1238 DD/ 1041 TD/TT: 11/01/24 1144 Detasseling Crew Supervisor: [facility] External Provider IMG CT PROCEDURES Final Result * (ABNORMAL) Basic Metabolic Panel (10/30/2024 7:59 AM EDT) Sodium 139 135 - 145 mmol/L [facility] Potassium 3.9 3.3 - 5.1 mmol/L [facility] Chloride 107 96 - 108 mmol/L [facility] Carbon Dioxide 24 22 - 29 mmol/L [facility] Anion Gap 12 12 - 20 [facility] Urea Nitrogen (BUN) 18(H) 9 - 16 mg/dL [facility] Creatinine, Serum 1.26 0.5 - 1.4 mg/dL [facility] Estimated Glomerular Filt Rate 57 [facility] Comment:Chronic Kidney Disea se: Estimated GFR < 60 mL/min/[id number] Kidney Disease: Estimated GFR < 15 mL/min/1.73m2 Glucose 129(H) 60 - 115 mg/dL [facility] Calcium 10.2 8.4 - 10.2 mg/dL [facility] Blood Venous blood specimen / Unknown 10/30/2024 7:59 AM EDT 10/30/2024 7:59 AM EDT Citlali Tee CLOTHES IRONER LAB BLOOD ORDERABLES Final Resul t [facility] [address], [place] [phone] * Hemoglobin A1c (03/08/2024 9:40 AM EST) Hemoglobin A1c 5.7 <6.0 % [facility] Comment:Hemoglobin A1C Refer ence Range Adults: 4.8 - 6.0 % Non diabetic: < 6.0 % Goal: < 7.0 %Additional Action Suggested: > 8.0 %Note: Hemoglobin A1c results are invalid for patients with abnormal amounts of HbF. Blood transfusions may impact the HbA1c concentration in the patient sample. Estimated Average Glucose 117 mg/dL [facility] Comment:eAG = Estimated ave rage glucose which is %A1C expressed asaverage glucose, using the formula of the [id number]-[id number] Glucose study (ADAG), Diabetes Care, Vol.31,#8,2007 Blood Venous blood specimen / Unknown 03/08/2024 9:40 AM EST 03/08/2024 11:04 AM EST us Citlali Tee CLOTHES IRONER LAB BLOOD ORDERABLES Final Resul t [facility] [address] [place] [phone] * Hepatitis Panel, General (10/24/2023 11:19 AM EDT) Hepatitis A IgM Nonreactive Nonreactive [facility] Comment:IgM antibodies to PITTS V not detected; does not exclude earlyacute or recovered HAV infection. ~Hepatitis B Surface Antibody REACTIVE Nonreactive [facility] Comment:REACTIVE: > 11.99 mI U/mL Hepatitis B Core Antibody Reactive Nonreactive [facility] Comment:Presumptive evidence of anti-HBc. Hepatitis C Antibody Nonreactive Nonreactive [facility] Comment:Antibodies to HCV no t detected; does not exclude early acuteHCV infection. Hepatitis B Surface Ag Negative Negative [facility] 10/24/2023 11:1 9 AM EDT 10/24/2023 11:19 AM EDT us Generic External Data Provider LAB BLOOD ORDERAB LES Final Result [facility] [address] [place] [phone] * Lipid Panel, Standard (07/14/2023 10:50 AM EDT) Triglycerides 100 <150 mg/dL [facility] Comment:Desirable Triglyceri de: less than 150 mg/dLBorderline High Triglyceride 150-199 mg/dLHigh Triglyceride: 200-499 mg/dLVery High Triglyceride: greater than or equal to 5OO mg/dL Cholesterol 137 <200 mg/dL [facility] Comment:Desirable Cholestero l: less than 200 mg/dLBorderline High Cholesterol: 200-239 mg/dLHigh Cholesterol: greater than 239 mg/dL LDL Cholesterol Calculated 74 <100 mg/dL [facility] Comment:Desirable LDL: less than 100 mg/dLNear Optimal/Above Optimal LDL: 110- 129 mg/dLBorderline High LDL: 130-159 mg/dLHigh LDL: 160-189 mg/dLVery High LDL: greater than or equal to 190 mg/dL HDL Cholesterol 43 >40 mg/dL [facility] Comment:Desirable HDL: great er than 40 mg/dL Note: This HDL assay may give artificially low results in patients with liver disease. Blood Venous blood specimen / Unknown 07/14/2023 10:50 AM EDT 07/14/2023 1:02 PM EDT Saba Hatfield MD LAB BLOOD ORDERABLES Final Result [facility] [address] [place] [phone] * Colonoscopy (05/02/2022) Colonoscopy Normal Normal Shawanda Feldman NP HEALTH MAINTENANCE Edited Resul t - Final from Last 3 Months or Most Recently Relevant to Health Maintenance Insurance [facility] STAND[employer] MEDICARE Care Teams Astro Technician Relationship Specialty Start Date End Date Citlali Tee NP [address] [place] [id number] PCP - General Family Medicine 07/14/23
--- OUTSIDE RECORDS SUMMARY | 2025-01-07 09:58 | XMS_ITS | Encounter Summary ---
Author Organization [employer] Address [address] [facility] 7[address] [place] [address] Care Team Providers Care Mammalogy Teacher Name Role Phone Estelle Cain GINI Primary Care Provider [phone] Citlali Tee MARKETING PROPOSAL COORDINATOR Primary Care Provider [phone] Encounter Details Date Type Department Care Team (Late st Contact Info) Description 04/16/2023 Orders Only [facility] [address] [place] [address] Susan Pimentel LPN Social History Tobacco Use [...] FACTOR Routine 10/24/2023 11: 19 AM EDT [id number] G ENZYME Routine 10/24/2023 11:19 AM EDT [...] IMMUNOGLOBULIN G 1340 600 - 1540 mg/dL [facility] IMMUNOGLOBULIN A 233 70 - 320 mg/dL [facility] Immunoglobulin M 84 50 - 300 mg/dL [facility] Comment:THIS TEST WAS PERFOR MED AT:[employer] [place] [phone] BLANCHARD MD Immunofixation Result SEE NOTE [facility] Comment:Normal pattern. No m onoclonal proteins detected. 10/24/2023 11:1 9 AM EDT 10/24/2023 11:19 AM EDT us Generic External Data Provider LAB BLOOD ORDERAB LES Final Result [facility] [address] [place] [phone] * (ABNORMAL) Angiotensin -1- Converting Enzyme (10/24/2023 11:19 AM EDT) Pathologist [facility] Angiotensin Converting Enzyme 70(A) 9 - 67 U/L [facility] Comment:THIS TEST WAS PERFOR MED AT:[employer] [place] [phone] DU MD,PHD 10/24/2023 11:1 9 AM EDT 10/24/2023 11:19 AM EDT us Generic External Data Provider LAB BLOOD ORDERAB LES Final Result [facility] [address] [place] [phone] * (ABNORMAL) Protein Electrophoresis and [place]/[employer] (10/24/2023 11:19 AM EDT) Pathologist [facility] Prot Elec - Total Protein 8.2(A) 6.1 - 8.1 g/dL [facility] Prot Elec - Albumin 4.7 3.8 - 4.8 g/dL [facility] Prot Elec - Alpha1 0.3 0.2 - 0.3 g/dL [facility] Prot Elec - Alpha2 0.8 0.5 - 0.9 g/dL [facility] Prot Elec - Beta 1 0.6 0.4 - 0.6 g/dL [facility] Prot Elec - Beta 2 0.3 0.2 - 0.5 g/dL [facility] Prot Elec - Gamma 1.5 0.8 - 1.7 g/dL [facility] PES - Abn Protein Band 1 [facility] PES-Abn Protein Band 2 [facility] PES-Abn Protein Band 3 [facility] Prot Elec - Interpretation SEE NOTE [facility] Comment:Normal Serum Protein Electrophoresis Pattern.No abnormal protein bands (M-protein) detected.THIS TEST WAS PERFORMED AT:[employer] [phone] BLANCHARD MD 10/24/2023 11:1 9 AM EDT 10/24/2023 11:19 AM EDT us Generic External Data Provider LAB BLOOD ORDERAB LES Final Result [facility] [address] [place] [phone] * SHERYL Screen,IFA, with Reflex to Titer and Pattern (10/24/2023 11:19 AM EDT) Anti Nuclear Antibody Screen NEGATIVE NEGATIVE [facility] Comment:SHERYL IFA is a first l [...] clinicallysuspected inflammatory myopathies.AC-0: NegativeInternational Consensus on SHERYL Patterns(https://doi.org/10.1515/vucd-0996-4317)For additional information, please refer tohttp://education.[employer]/faq/FFA069(This link is being provided for informational/educational purposes only.)THIS TEST WAS PERFORMED AT:[employer] [phone] BLANCHARD MD SHERYL Titer TNP [facility] SHERYL Pattern TNP [facility] SHERYL TITER 2 (REF LAB) TNP [facility] SHERYL Pattern 2 TNP [facility] SHERYL TITER 3 [facility] SHERYL PATTERN 3 [facility] 10/24/2023 11:1 9 AM EDT 10/24/2023 11:19 AM EDT Generic External Data Provider LAB BLOOD ORDERAB LES Final Result Performing Organization Address [facility] Co de Phone Number [facility] [address] [place] [phone] * Cyclic Citrullinated Peptide (CCP) Antibody (IgG) (10/24/2023 11:19 AM EDT) Pathologist [facility] Cyclic Citrullinated Peptide <16 UNITS [facility] Comment:Reference RangeNegat travis: <20Weak Positive: 20-39Moderate Positive: 40-59Strong Positive: >59THIS TEST WAS PERFORMED AT:[employer] [phone] BLANCHARD MD 10/24/2023 11:1 9 AM EDT 10/24/2023 11:19 AM EDT Generic External Data Provider LAB BLOOD ORDERAB LES Final Result Performing Organization Address [facility] de Phone Number [facility] [address] [place] [phone] * HIV-1/2 Antigen and Antibodies, Fourth Generation, with Reflexes (10/24/2023 11:19 AM EDT) [facility] HIV AB/AG Nonreactive Nonreactive [facility] Comment:HIV-1 p24 Ag and/or HIV-1/HIV-2 Ab not detected.A test result that is nonreactive does not exclude thepossibility of exposure to or infection with HIV-1 and/orHIV-2. Nonreactive results in this assay for individualswith prior exposure to HIV-1 and/or HIV-2 may be due toantigen and antibody levels that are below the limit ofdetection of this assay.[employer] HIV Ag/Ab Combo assay result andsupplemental assay results should be interpreted inconjunction with the patient's clinical presentation,history and other laboratory results. If the results areinconsistent with clinical evidence, additional testing issuggested to confirm the result. 10/24/2023 11:1 9 AM EDT 10/24/2023 11:19 AM EDT Generic External Data Provider LAB BLOOD ORDERAB LES Final Result Performing Organization Address [facility] Co de Phone Number [facility] [address] [place] [phone] * Hepatitis Panel, General (10/24/2023 11:19 AM EDT) Pathologist [facility] Hepatitis A IgM Nonreactive Nonreactive [facility] Comment:IgM antibodies to PITTS V not detected; does not exclude earlyacute or recovered HAV infection. ~Hepatitis B Surface Antibody REACTIVE Nonreactive [facility] Comment:REACTIVE: > 11.99 mI U/mL Hepatitis B Core Antibody Reactive Nonreactive [facility] Comment:Presumptive evidence of anti-HBc. Hepatitis C Antibody Nonreactive Nonreactive [facility] Comment:Antibodies to HCV no t detected; does not exclude early acuteHCV infection. Hepatitis B Surface Ag Negative Negative [facility] 10/24/2023 11:1 9 AM EDT 10/24/2023 11:19 AM EDT Cubicle External Data Provider LAB BLOOD ORDERAB LES Final Result Performing Organization Address [facility] de Phone Number [facility] [address] [place] [phone] * T-SPOT??.TB (10/24/2023 11:19 AM EDT) Pathologist [facility] T Spot TB Negative Negative [facility] Comment:A negative test resu lt does [...] as aquantitative test. TS PANEL A 0 [facility] TS PANEL B 0 [facility] Negative Control Passed [facility] Positive Control Passed [facility] Comment:For additional infor matumair, please refer tohttp://education.[employer]/faq/VRQ727(This link is being provided for informational/educational purposes only.)THIS TEST WAS PERFORMED AT:[employer] [address] [place] [phone] DU MD,PHD 10/24/2023 11:1 9 AM EDT 10/24/2023 11:19 AM EDT us Generic External Data Provider LAB BLOOD ORDERAB LES Final Result Performing Organization Address City/[facility]/ZIP Co de Phone Number [facility] [address] [place] [phone] * Sed Rate by Modified Vikergren (10/24/2023 11:19 AM EDT) Erythrocyte Sedimentation Rate 7 0 - 15 MM/HR [facility] Comment:Patients with polycy themia and many hemoglobin abnormalitiesmay have depressed sed rates whereas patients with anemiamay have elevated sed rates. 10/24/2023 11:1 9 AM EDT 10/24/2023 11:19 AM EDT us Generic External Data Provider LAB BLOOD ORDERAB LES Final Result Performing Organization Address [facility]/ZIP Co de Phone Number [facility] [address] [place] [phone] * C-reactive Protein (10/24/2023 11:19 AM EDT) C Reactive Protein 0.16 < or = 0.50 mg/dL [facility] 10/24/2023 11:1 9 AM EDT 10/24/2023 11:19 AM EDT us Generic External Data Provider LAB BLOOD ORDERAB LES Final Result [facility] [address] [place] [phone] * (ABNORMAL) Comprehensive Metabolic Panel (10/24/2023 11:19 AM EDT) Sodium 140 135 - 145 mmol/L [facility] Potassium 3.7 3.3 - 5.1 mmol/L [facility] Chloride 107 96 - 108 mmol/L [facility] Carbon Dioxide 28 22 - 29 mmol/L [facility] Anion Gap 9(L) 12 - 20 [facility] Urea Nitrogen (BUN) 18(H) 9 - 16 mg/dL [facility] Creatinine, Serum 0.99 0.5 - 1.4 mg/dL [facility] Estimated Glomerular Filt Rate >60 [facility] Comment:NOTE: For -Am erican individuals, multiply the result by 1.210.Chronic Kidney Disease: Estimated GFR < 60 mL/min/1.41h4Pjcdsv Kidney Disease: Estimated GFR < 15 mL/min/1.73m2 Glucose 105 60 - 115 mg/dL [facility] Calcium 11.3(H) 8.4 - 10.2 mg/dL [facility] Bilirubin, Total 0.5 0.0 - 1.0 mg/dL [facility] Aspartate Amino Transferase 28 5 - 37 U/L [facility] Alanine Aminotransferase 22 0 - 40 U/L [facility] Total Protein 7.8 6.5 - 8.0 g/dL [facility] Albumin Level 4.5 3.5 - 5.0 g/dL [facility] Alkaline Phosphatase 74 39 - 117 U/L [facility] 10/24/2023 11:1 9 AM EDT 10/24/2023 11:19 AM EDT us Generic External Data Provider LAB BLOOD ORDERAB LES Final Result Performing Organization Address [facility] Co de Phone Number [facility] [address] [place] [phone] * Rheumatoid Factor (10/24/2023 11:19 AM EDT) Rheumatoid Factor <13.0 <15.0 IU/mL [facility] 10/24/2023 11:1 9 AM EDT 10/24/2023 11:19 AM EDT us Generic External Data Provider LAB BLOOD ORDERAB LES Final Result Performing Organization Address [facility] Co mi Phone Number [facility] [address] [place] [address] [phone] * Hemoglobin A1c (10/24/2023 11:19 AM EDT) Hemoglobin A1c 5.5 <6.0 % [facility] Comment:Hemoglobin A1C Refer ence Range Adults: 4.8 - 6.0 % Non diabetic: < 6.0 % Goal: < 7.0 %Additional Action Suggested: > 8.0 %Note: Hemoglobin A1c results are invalid for patients with abnormal amounts of HbF. Blood transfusions may impact the HbA1c concentration in the patient sample. Estimated Average Glucose 111 mg/dL [facility] Comment:eAG = Estimated ave rage glucose which is %A1C expressed asaverage glucose, using the formula of the B0F-SkcubaxLncdlvq Glucose study (ADAG), Diabetes Care, Vol.31,#8,Dec. 2007 10/24/2023 11:1 9 AM EDT 10/24/2023 11:19 AM EDT us Generic External Data Provider LAB BLOOD ORDERAB LES Final Result Performing Organization Address [facility]/ZIP Co de Phone Number [facility] [address] [place] [phone] * (ABNORMAL) CBC auto differential (10/24/2023 11:19 AM EDT) White Blood Count 4.4(L) 4.8 - 10.8 X10*3/uL [facility] Red Blood Count 4.15(L) 4.60 - 5.80 X10*6/uL [facility] Hemoglobin 12.4(L) 14.0 - 18.0 g/dl [facility] Hematocrit 37.7(L) 42.0 - 52.0 % [facility] Mean Corpuscular Volume 90.8 80.0 - 98.0 fL [facility] Mean Corpuscular Hemoglobin 29.9 27.0 - 33.0 pg [facility] Mean Corpuscular HGB Conc 32.9 31.0 - 36.0 g/dl [facility] Red Cell Distribution Width 12.7 11.0 - 16.0 % [facility] Platelet Count 277 160 - 400 X10*3/uL [facility] Mean Platelet Volume 10.3 9.4 - 12.4 fL [facility] Neutrophils Percent Auto 50.4 45 - 73 % [facility] Imm Gran Pct Auto 0.5(H) 0.0 - 0.4 % [facility] Lymphocytes Percent Auto 33.9 20 - 40 % [facility] Monocytes Percent Auto 10.0 2 - 11 % [facility] Eosinophils Percent Auto 4.3(H) 0 - 4 % [facility] Basophils Percent Auto 0.9 0 - 2 % [facility] NRBC Pct Auto 0.0 0.0 - 0.2 /100WBC [facility] Neutrophils Absolute Auto 2.2 2.0 - 8.3 x10*3/uL [facility] Imm Gran Abs Auto 0.02 0.00 - 0.03 X10*3/uL [facility] Lymphocytes Absolute Auto 1.5 1.2 - 4.9 X10*3/uL [facility] Monocytes Absolute Auto 0.4 0.1 - 1.2 X10*3/uL [facility] Eosinophils Absolute Auto 0.2 0.0 - 0.4 X10*3/uL [facility] Basophils Absolute Auto 0.0 0.0 - 0.2 X10*3/uL [facility] NRBC Abs Auto 0.000 0.0 - 0.012 X10*3/uL [facility] 10/24/2023 11:1 9 AM EDT 10/24/2023 11:19 AM EDT us Generic External Data Provider LAB BLOOD ORDERAB LES Final Result Performing Organization Address City/State/[facility] Co de Phone Number [facility] [address] [place] [phone] [phone] documented in this encounter Visit Diagnoses Not on filedocumented in this encounter Care Teams Mammalogy Teacher Relationship Specialty Start Date End Date Estelle Cain ANP [address] [place] [address] PCP - General Family Medicine 12/26/21 07/13/23 Citlali Tee NP [address] [place] [address] PCP - General Family Medicine 07/14/23 documented as of this encounter
--- OUTSIDE RECORDS SUMMARY | 2025-01-07 09:58 | XMS_ITS | Encounter Summary ---
Author Organization [employer] Address [address] [facility] [facility] [address] [place] [address] Care Team Providers Care Mud Engineer Name Role Phone Citlali Tee JANE Primary Care Provider [phone] Reason for Visit * Reason Comments Med Refill Encounter Details Date Type Department Care Team (Late st Contact Info) Description 08/08/2023 Refill [facility] [address] [place], [place] [phone] Estelle Cain ANP [address] [place], [place] [phone] Essential hypertension; Primary hypertension Social History Tobacco [...] documented as of this encounter Care Teams Mud Engineer Relationship Specialty Start Date End Date Citlali Tee NP [address] [place] [address] PCP - General Family Medicine 07/14/23 documented as of this encounter
--- OUTSIDE RECORDS SUMMARY | 2025-01-07 09:58 | XMS_ITS | Clinical Summary ---
Author Organization [facility] Address [address] [place] [address] Care Team Providers Care Chandelier Maker Name Role Phone Americo Hu PA-C Primary Care Provider [phone] Source Comments PLEASE NOTE, if this patient [...] pressure) 02/13/2016 Rheumatoid arthritis involving both hands ([facility]) 02/01/2016 Resolved Problems Problem Noted Date Diagnosed [...] 05/27/2020 05/27/2019, 04/30/2018, 08/08/2016, Additional history exists Falls Prevention 2024 Alcohol and Drug Screen 05/05/2024 05/27/19 20, 04/30/2018, 04/30/2018, Additional history exists Depression Annual Screen 05/05/2024 05/27/2019, 04/05 [id number] ( season) 2025 07/17/2021, 09/25/2020, 09/04/2020 Imm-Influenza (#1) 2025 02/12/2021, 0 05/27/2019, 04/30/2018, [...] HIV-2 ANTIBODIES (06/03/2019 9:45 AM EST) Pathologist [facility] HIV 1 AND [address]EN [address]IVE NEGATIVE [facility] Comment: This assay is a [...] 9:45 AM EST 06/03/2019 9:46 AM EST [facility] - 06/03/2019 12:50 PM EST [employer], [place] [address] Toe Pounder - Dhara Flores MD PT ID [id number] ORD# [id number] Mercedes RAMIREZ LAB - BLOOD DRAW Final Resu lt Performing Organization Address [facility] [place] [address], * HEMOGLOBIN, GLYCOSYLATED (A1C) (06/03/2019 9:45 AM EST) [facility] GLYCATED HEMOGLOBIN A1C 5.1 <6.5 % [facility] ESTIMATED AVERAGE GLUCOSE 100 mg/dL [facility] Blood specimen (specimen) Blood / Unknown 06/03/2019 9:45 AM EST 06/03/2019 9:46 AM EST [facility] - 06/03/2019 12:31 PM EST [employer], a member of [address] [address] Toe Pounder - Dhara Flores MD PT ID [id number] ORD# [id number] [facility] LAB - BLOOD DRAW Final Resu lt Performing Organization Address City/[facility] [place] [address], * (ABNORMAL) LIPID PANEL (06/03/2019 9:44 AM EST) CHOLESTEROL 187 0 - 200 mg/dL [facility] TRIGLYCERIDES 73 0 - 150 mg/dL [facility] HDL CHOLESTEROL 58 >40 mg/dL [facility] LDL CALCULATED 115(H) 0 - 100 mg/dL [facility] TC-HDLC RATIO 3.2 0 - 4.4 mg/dL [facility] Blood specimen (specimen) Blood / Unknown 06/03/2019 9:44 AM EST 06/03/2019 9:46 AM EST Narrative [facility] - 06/03/2019 12:01 PM EST [employer] [address] Toe Pounder - Dhara Flores MD PT ID [id number] ORD# [id number] Mercedes Broderick [facility] LAB - BLOOD DRAW Final Resu lt Performing Organization Address City/State/[facility] [place] [address], * (ABNORMAL) hepatitis ABC panel future (04/30/2018 9:50 AM EST) HEPATITIS B SURFACE ANTIBODY POSITIVE(A) NEGATIVE [facility] HEPATITIS B SURFACE ANTIGEN NEGATIVE NEGATIVE [facility] Comment: Over the counter supplements containing high doses of biotin may interfere with this assay. If interference is suspected, patients shoud be retested after refraining from biotin supplements for 72 hours. HEPATITIS C VIRUS DIAGNOSTIC NEGATIVE NEGATIVE [facility] HEPATITIS A ANTIBODY TOTAL POSITIVE(A) NEGATIVE [facility] Comment: Over the counter supplements containing high doses of biotin may interfere with this assay. If interference is suspected, patients shoud be retested after refraining from biotin supplements for 72 hours. HEPATITIS B CORE ANTIBODY POSITIVE(A) NEGATIVE [facility] Blood specimen (specimen) Blood / Unknown 04/30/2018 9:50 AM EST 04/30/2018 11:36 AM EST Narrative [facility] - 04/30/2018 7:16 PM EST [employer], a member of [address] [address] Toe Pounder - Janell Pollack MD PT ID [id number] ORD# [id number] Clinton Hanson MD LAB - BLOOD DRAW Edited Result - Final [facility] [address], from Last 3 Months or Most Recently Relevant to Health Maintenance Insurance [employer] ([facility]) Member Subscriber Plan / Payer (Ef fective 2019-Present) Name:Ag Gill Relation to Subscriber:Self Name:Ag Gill Payer ID:[id number] Group ID:Not on file Type:[employer] Address: [address] [place] [phone] [place] [address] [place] Care Teams Chandelier Maker Relationship Specialty Start Date End Date Americo Hu PA-C [address] [place] [phone] [facility] - General 10/12/21
[2025-01-07 10:59] LABS: Anion Gap 11 (12-20); Blood Urea Nitrogen 17 mg/dL (9-16); Calcium 10.5 mg/dL (8.4-10.2); Carbon Dioxide 27 mmol/L (22-29); Chloride 107 mmol/L (96-108); Estimated Glomerular Filt Rate > 60; Potassium 3.7 mmol/L (3.3-5.1); Sodium 141 mmol/L (135-145)
== END 2025-01-07 09:13 | disposition home or self-care (01) ==
LOC: HO.LAB 09:12
PROVIDERS: Absent Provider Student in an Organized Health Care Education/Training Program; PCP Nurse Practitioner Family; Visit Provider Internal Medicine Cardiovascular Disease
DX: R94.31 Abnormal electrocardiogram [ECG] [EKG] (principal)
CPT/HCPCS: 36415; 80048

== ENCOUNTER 2025-01-14 12:08 | Outpatient (REF) | payer MEDICARE, MEDICAID, SELFPAY ==
[2025-01-14 12:23] LABS: MANUAL DIFF FLAG NO
[2025-01-14 13:03] LABS: Hematocrit 37.4 % (42.0-52.0); Hemoglobin 12.3 g/dl (14.0-18.0); Imm Gran Abs Auto 0.03 X10*3/uL (0.00-0.03); Imm Gran Pct Auto 0.6 % (0.0-0.4); Lymphocytes Absolute Auto 1.4 X10*3/uL (1.2-4.9); Mean Corpuscular HGB Conc 32.9 g/dl (31.0-36.0); Mean Corpuscular Hemoglobin 30.5 pg (27.0-33.0); Mean Corpuscular Volume 92.8 fL (80.0-98.0); NRBC Abs Auto 0.000 X10*3/uL (0.0-0.012); NRBC Pct Auto 0.0 /100WBC (0.0-0.2); Platelet Count 257 X10*3/uL (160-400); Red Blood Count 4.03 X10*6/uL (4.60-5.80); White Blood Count 5.4 X10*3/uL (4.8-10.8)
[2025-01-14 13:40] LABS: Alanine Aminotransferase 28 U/L (0-40); Albumin Level 4.5 g/dL (3.5-5.0); Alkaline Phosphatase 95 U/L (39-117); Anion Gap 12 (12-20); Aspartate Amino Transferase 23 U/L (5-37); Blood Urea Nitrogen 23 mg/dL (9-16); Calcium 10.6 mg/dL (8.4-10.2); Carbon Dioxide 26 mmol/L (22-29); Chloride 107 mmol/L (96-108); Estimated Glomerular Filt Rate > 60; Potassium 3.6 mmol/L (3.3-5.1); Sodium 141 mmol/L (135-145); Total Protein 7.6 g/dL (6.5-8.0)
--- OUTSIDE RECORDS SUMMARY | 2025-01-14 14:37 | XMS_ITS | Clinical Summary ---
Author Organization [facility] Address [address] [place] [address] Care Team Providers Care Guard Chief Name Role Phone Pcp, No Primary Care Provider Unavailabl e Allergies Active Allergy Reactions Criticality Noted Date Comments Adhesives/Tape Rash/Dermatitis Low 11/15/2016 Latex Unknown/Patient and Family Unable to Define Medium 11/15/2016 Stewart to skin Medications No known medications Active Problems Problem Noted Date Diagnosed Date Brachial plexus neuropathy 11/15/2016 Overview (11/15/2016): Overview: [facility] Pre-employment examination 11/15/2016 History of colonoscopy [...] Health Maintenance Due Date Last Done Comments Advance Care Planning 1960 Hepatitis C Virus Screening 1959 HIV Screening 1972 Pneumococcal Vaccines 50+ (1 of 1 - PCV) 2009 Zoster (Shingles) Vaccine (1 of 2) 2009 COVID-19 Vaccine ( - 2023-2 5 season) 2025 DTaP/Tdap/Td Vaccines (2 - T d or Tdap) 03/04/2026 03/04/2016 RSV Vaccine 60 years and old er and Patients (1 - 1-dose 75+ series) 2034 Hepatitis B Vaccines Aged Out No long er eligible based on patient's age to complete this topic Care Teams Guard Chief Relationship Specialty Start Date End Date Pcp, No PCP - General General Medicine 11/13/16
--- OUTSIDE RECORDS SUMMARY | 2025-01-14 14:37 | XMS_ITS | Clinical Summary ---
Author Organization [facility] Address [address] [place] [address] Phone Care Team Providers Care Client Development Consultant Name Role Phone Physician, Pcp Unknown Primary [...] mmol/L LAB CHEMISTRY METHOD 09/21/2024 8:46 AM [facility] Potassium 3.9 3.5 - 5.5 mmol/L LAB CHEMISTRY METHOD 09/21/2024 8:46 AM [facility] Chloride 106 96 - 110 mmol/L LAB CHEMISTRY METHOD 09/21/2024 8:46 AM [facility] CO2 24 21 - 32 mmol/L LAB CHEMISTRY METHOD 09/21/2024 8:46 AM [facility] Anion Gap 6 3 - 11 LAB CHEMISTRY METHOD 09/21/2024 8:46 AM [facility] Glucose 118(H) 70 - 100 mg/dL LAB CHEMISTRY METHOD 09/21/2024 8:46 AM [facility] BUN 17 5 - 25 mg/dL LAB CHEMISTRY METHOD 09/21/2024 8:46 AM [facility] Creatinine 1.10 0.70 - 1.30 mg/dL LAB CHEMISTRY METHOD 09/21/2024 8:46 AM [facility] eGFR 74 >=60 mL/min/1. 73m2 LAB CHEMISTRY METHOD 09/21/2024 8:46 AM [facility] Comment:Calculation based on the Chronic Kidney Disease Epidemiology Collaboration (CKD-EPI) equation refit without adjustment for race. BUN/Creatinine Ratio 15.5 LAB CHEMISTRY METHOD 09/21/2024 8:46 AM [facility] Calcium 11.2(H) 8.5 - 10.5 mg/dL LAB CHEMISTRY METHOD 09/21/2024 8:46 AM [facility] AST (SGOT) 29 10 - 42 unit/L LAB CHEMISTRY METHOD 09/21/2024 8:46 AM [facility] ALT (SGPT) 31 10 - 60 unit/L LAB CHEMISTRY METHOD 09/21/2024 8:46 AM EDT [facility] Alkaline Phosphatase 107 42 - 121 unit/L LAB CHEMISTRY METHOD 09/21/2024 8:46 AM EDT [facility] Total Protein 8.3(H) 6.0 - 8.0 g/dL LAB CHEMISTRY METHOD 09/21/2024 8:46 AM EDT [facility] Albumin 4.6 3.2 - 5.0 g/dL LAB CHEMISTRY METHOD 09/21/2024 8:46 AM EDT [facility] Total Bilirubin 0.4 0.0 - 1.4 mg/dL LAB CHEMISTRY METHOD 09/21/2024 8:46 AM T [facility] Blood Venous blood specimen / Unknown Venipuncture / Unknown 09/21/2024 7:48 AM EDT 09/21/2024 8:14 AM EDT us Lei Mario MD LAB BLOOD ORDERABLES Final Result [facility] [address] [place] [address], from Last 3 Months or Most Recently Relevant to Health Maintenance Insurance MEDICARE MEDICAID - [place] Care Teams Client Development Consultant Relationship Specialty Start Date End Date Physician, Pcp Unknown PCP - General 09/21/24
[2025-01-15 09:14] LABS: HBS Num1 > 1000.00 mIU/mL (0-7.99); HBc Num1 7.08 S/CO (0.00-0.79); HBsAGNum1 0.46 S/CO (0.00-0.99); Hepatitis B Surface Antigen Negative (Negative); ~HepC Num1 0.07 S/CO (0.00-0.79); ~Hepatitis B Surface Antibody REACTIVE (Nonreactive); ~Hepatitis C Antibody Nonreactive (Nonreactive)
[2025-01-15 11:29] LABS: HBc Num2 6.96 S/CO; HBc Num3 6.94 S/CO
== END 2025-01-14 12:09 | disposition home or self-care (01) ==
LOC: HO.LAB 12:08
PROVIDERS: PCP Nurse Practitioner Family; Visit Provider Student in an Organized Health Care Education/Training Program
DX: Z11.59 Encounter for screening for other viral diseases (principal); Z79.899 Other long term (current) drug therapy; Z72.89 Other problems related to lifestyle
CPT/HCPCS: 36415; 80053; 85025; 85652; 86140; 86704; 86706; 86803; 87340

== ENCOUNTER 2025-01-19 13:13 | Outpatient (AMB) | payer MEDICARE, MEDICAID, SELFPAY ==
--- NOTE | 2025-01-19 13:41 | A.OFFVIS_ITS ---
Vital Signs 01/19/25 13:49 Height 5 ft 5 in Weight 185 lb 3.013 oz BMI 30.8 BP 140/82 H Blood Pressure Location Rt brachial Position Sitting Pulse 72 Pulse Source Pulse Oximeter Pulse Oximetry (%) 97 Oxygen Delivery Method Room Air Intake Visit Reasons: RA Intake Note: Patient presents for RA follow up. Allergies ibuprofen (From MOTRIN) Allergy (Intermediate, Verified 01/19/25 13:45) RASH latex Allergy (Intermediate, Verified 01/19/25 13:45) Rash Medication List - Last Reconciled 01/19/25 by Cher Tellez MD amlodipine 10 mg PO DAILY atorvastatin 10 mg PO DAILY cholecalciferol (vitamin D3) 50 mcg PO DAILY 1 month folic acid 1 mg PO DAILY hydrochlorothiazide 12.5 mg PO DAILY methotrexate sodium 15 mg (6 x 2.5 mg) PO QWEEK 90 days olmesartan 40 mg PO DAILY HPI Comments Details: Patient is a 64 y.o. male with HTN, HLD, bilateral carpal tunnel syndrome, hyperparathyroidism, and seronegative RA Interval History: Patient last seen 09/30/24 with me - Not on any immunosuppression (self d/c mtx) - Patient is not on any medication. Completed the medication last set of methotrexate but did not request refills and so has been off Mtx for the past 5 months - Complaining of pain to the hips, shoulders and hands. Also noting stiffness in the hands in the AM when he wakes that improves as the day progresses - Mtx restarted Today - On methotrexate 15 mg weekly and folic acid 1 mg daily - Does not feel the methotrexate is working - Complaining of midback pain that he feels radiates across his back like the band - Hands feel very stiff and swollen - Decreased motion in the wrist Rheumatologic History: dx approx 2008 ttt MTX + prednisone for 2-3 years then lost to follow up MTX restarted 10/2023 - 04/2024 due to change in providers MTx restarted 09/2024 Initial history: This is a 63-year-old male with history of rheumatoid arthritis who presents as a new patient. Patient states that around 15 years ago he woke up 1 day with abrupt onset of bilateral hip pain soon after he started having pain swelling and stiffness of his fingers. He was evaluated at [facility]. He was diagnosed with rheumatoid arthritis and started on methotrexate and prednisone with good improvement. After some time the prednisone was discontinued and methotrexate continued. Patient was on methotrexate for a total of 2-3 years but he felt better overall and stopped the treatment. Over the years he was feeling reasonably well until about 2-3 years ago when he started having recurrent bilateral hip stiffness as well as pain and stiffness of his hands, fingers, right shoulder. He denies any other symptoms. Denies any skin rashes, denies fevers, shortness of breath, weight loss. Denies any history of DVT/PE. He is unaware of any family history of an autoimmune rheumatic disease. Denies history of psoriasis. 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 - [employer] Review of Systems Const Details: Review of Systems Constitutional: Denies fever, chills, weight loss ENT: Denies vision changes, eye pain or eye redness, dental caries, dry mouth GI: Denies nausea, vomiting, diarrhea, abdominal pain, change in BM Pulm: Denies SOB, TALBOT, hemoptysis, wheezing Cards: Denies chest pain, palpitations Skin: Denies Raynaud's, rash, nail changes, photosensitivity, READING RECOVERY TEACHER: Denies headaches, weakness, paresthesias, recurrent falls MSK: as per HPI All other systems reviewed and are unremarkable except noted above Physical Exam Exam Exam: Vital signs reviewed Physical Examination CONSTITUITIONAL Patient alert and cooperative. Well appearing and in no apparent painful distress MSK Hands * Right Hand: Hands grossly swollen, able to make a fist but it is difficult. No tenderness to palpation of the MCPs, PIPs or DIPs. * Left Hand: Hands grossly swollen, able to make a fist but it is difficult. No tenderness to palpation of the MCPs, PIPs or DIPs. * Herbedens and Bouchards nodes noted bilaterally Wrists * Right Wrist: Decreased ROM. Synovial hypertrophy. No TTP * Left Wrist: Decreased ROM. Synovial hypertrophy. No TTP Elbows * Right Elbow: Full ROM. No swelling or TTP. No TTP of the medial epicondyle. No TTP of the lateral epicondyle * Left Elbow: Full ROM. No swelling or TTP. No TTP of the medial epicondyle. No TTP of the lateral epicondyle Shoulders * Right shoulder: No swelling noted. No TTP of the AC joint. No TTP of the subacromial bursa. No TTP of the posterior shoulder * Left shoulder: No swelling noted. No TTP of the AC joint. No TTP of the subacromial bursa. No TTP of the posterior shoulder Knees * Right knee: Full ROM. No swelling noted. No TTP of the knee joint line. No TTP of pes anserine bursa * Left knee: Full ROM. No swelling noted. No TTP of the knee joint line. No TTP of pes anserine bursa. * Crepitations felt bilaterally Ankles * Right ankle: Good ankle dorsiflexion and plantar flexion. No swelling. No TTP of the ankle joint * Left ankle: Good ankle dorsiflexion and plantar flexion. No swelling. No TTP of the ankle joint Feet * Right foot: Negative squeeze test * Left foot: Negative squeeze test Tender points? * No tenderness to palpation of the bilateral trapezius, supraspinatus, anterior costochondral junctions, bilateral suboccipital muscle insertions SKIN No rashes Vital Signs: Last Vital Signs Pulse 72 01/19/25 13:49 BP 140/82 H 01/19/25 13:49 Pulse Ox 97 01/19/25 13:49 Oxygen Delivery Method Room Air 01/19/25 13:49 BMI result Body Mass Index 30.8 Results Reviewed Results Reviewed: Laboratory Tests 01/14/25 12:20 WBC 5.4 RBC 4.03 L Hgb 12.3 L Hct 37.4 L Plt Count 257 ESR 7 Sodium 141 Potassium 3.6 Chloride 107 Carbon Dioxide 26 BUN 23 H Creatinine 1.09 AST 23 ALT 28 C-Reactive Protein 0.16 Laboratory Tests 10/24/23 01/14/25 11:19 12:20 Hep Bs Antigen Negative Hep Bs Antibody REACTIVE Hep B Core Total Ab Reactive Hepatitis C Ab (EIA) Nonreactive TB Test (T-Spot) Com Negative XR Bilateral Hands 10/2023 FINDINGS (Right): No acute fracture or subluxation. Joint space narrowing, bony productive changes and subcortical cystic changes in the left greater than right first carpometacarpal joints, subtle erosions might be present as well. Equivocal focal marginal erosion along the ulnar surface of the distal aspect of the proximal phalanx of the second digit on the right hand. Mild multifocal joint space narrowing and marginal osteophytes along the bilateral interphalangeal joints. Punctate radiopacity overlying the soft tissues of the distal aspect of the third digit on the right hand. Mild diffuse soft tissue thickening bilaterally. IMPRESSION: 1. No acute fracture or subluxation. 2. Moderate osteoarthritis of the left greater than right first carpometacarpal joints, possibly a combination of degenerative and inflammatory etiology. 3. Equivocal marginal erosion along the ulnar surface of the distal aspect of the proximal phalanx of the second digit on the right hand. 4. Punctate soft tissue density in the distal aspect of the third digit of the right hand. 5. Diffuse bilateral soft tissue thickening. FINDINGS (Left): No acute fracture or subluxation. Joint space narrowing, bony productive changes and subcortical cystic changes in the left greater than right first carpometacarpal joints, subtle erosions might be present as well. Equivocal focal marginal erosion along the ulnar surface of the distal aspect of the proximal phalanx of the second digit on the right hand. Mild multifocal joint space narrowing and marginal osteophytes along the bilateral interphalangeal joints. Punctate radiopacity overlying the soft tissues of the distal aspect of the third digit on the right hand. Mild diffuse soft tissue thickening bilaterally. IMPRESSION: 1. No acute fracture or subluxation. 2. Moderate osteoarthritis of the left greater than right first carpometacarpal joints, possibly a combination of degenerative and inflammatory etiology. 3. Equivocal marginal erosion along the ulnar surface of the distal aspect of the proximal phalanx of the second digit on the right hand. 4. Punctate soft tissue density in the distal aspect of the third digit of the right hand. 5. Diffuse bilateral soft tissue thickening. XR bilateral shoulders 10/2023 FINDINGS (right) No acute fracture or subluxation. Mild degenerative osteoarthritis of the acromioclavicular joint with bony spurring. No osseous erosions. Chronic deformity along the superolateral aspect of the humeral head. No abnormal soft tissue calcifications. Visualized portions of the right-sided ribs and right lung are within normal limits. IMPRESSION: 1. No acute fracture or subluxation. 2. Mild degenerative osteoarthritis of the acromioclavicular joint. 3. Chronic deformity along the superolateral aspect of the humeral head. FINDINGS (Left): No acute fracture or subluxation. Moderate degenerative osteoarthritis of the acromioclavicular joint. Chronic appearing deformity along the superolateral aspect of the humeral head. No osseous erosions. No abnormal soft tissue calcifications. Visualized portions of the left lung and left ribs are within normal limits. IMPRESSION: 1. No acute fracture or subluxation. 2. Moderate degenerative osteoarthritis of the acromioclavicular joint. Assessment & Plan Assessment & Plan (1) Rheumatoid arthritis: Comment: dx approx 2008 ttt MTX + prednisone for 2-3 years then lost to follow up MTX restarted 10/2023 Code(s): M06.9 - Rheumatoid arthritis, unspecified Category: Medical Qualifiers: Rheumatoid arthritis location: multiple sites Rheumatoid factor presence: unspecified presence Qualified Code(s): M06.9 - Rheumatoid arthritis, unspecified Plan: #Seronegative RA Patient is a 64 y.o. male with seronegative RA here today for follow up. On methotrexate 15mg weekly but not much improvement in his hands Will try a trial of prednisone and increase the dose re eval in 4 weeks Plan - Methotrexate 20mg weekly PO - Folic acid 1mg daily - Prednisone Take 20mg for 7 days then 15mg for 7 days then 10mg for 7 days then 5mg for 7 days then stop - XRs Bilateral hands, wrists and shoulders. XR T spine - RTC 4 weeks (2) ferry terminal agent methotrexate user: Code(s): Z79.631 - [facility] (current) use of antimetabolite agent Category: Medical Plan: #Long-term Current Use of Methotrexate Discussed with patient the benefits and risks of methotrexate for managing their rheumatic condition Benefits include reduced pain, reduced mortality, maintenance of remission and reduction of flares Risks include oral ulcers, photosensitivity, hepatotoxicity, hematologic toxicity, pneumonitis, flu-like symptoms (especially day after administration), nodulosis, lymphomas ? Limit alcohol and avoid Bactrim ? Monitoring: ?CBC, BMP, LFTs every 3-4 months and hepatitis serologies as needed Plan I spent 30 minutes reviewing the record and labs, taking a history, examining the patient, discussing the treatment plan, ordering diagnostic work up and documenting in the medical record Orders: Orders XR thoracic spine 3V Today M06.9 - Rheumatoid arthritis, unspecified XR wrist LT min 3V Today M06.9 - Rheumatoid arthritis, unspecified XR wrist RT min 3V Today M06.9 - Rheumatoid arthritis, unspecified XR hand RT min 3V Today M06.9 - Rheumatoid arthritis, unspecified XR hand LT min 3V Today M06.9 - Rheumatoid arthritis, unspecified XR shoulder RT min 2V Today M06.9 - Rheumatoid arthritis, unspecified XR lumbar spine 4V min Today M06.9 - Rheumatoid arthritis, unspecified XR shoulder LT min 2V Today M06.9 - Rheumatoid arthritis, unspecified Medications: New prednisone Take 4 tablets for 1 week then 3 tablets for 1 week then 2 tablets for 1 week then 1 tablet for 1 week then stop 5 mg PO DIRECTED 60 tabs 0RF M06.9 - Rheumatoid arthritis, unspecified Changed From methotrexate sodium 15 mg (6 x 2.5 mg) PO QWEEK 90 days 78 tabs 1RF M06.9 - Rheumatoid arthritis, unspecified To methotrexate sodium 20 mg (8 x 2.5 mg) PO QWEEK 104 tabs 1RF 90 days M06.9 - Rheumatoid arthritis, unspecified Coding Level of Care Code Est Pt Level 4 (36021) Complex EM visit Add On G2211 Diagnoses Rheumatoid arthritis involving multiple sites, unspecified whether rheumatoid factor present M06.9 Rheumatoid arthritis location: multiple sites Rheumatoid factor presence: unspecified presence ferry terminal agent methotrexate user Z79.631
[2025-01-19 13:49] VITALS: BP 140/82; PULSE 72; O2SAT 97; BMI 30.8
--- OUTSIDE RECORDS SUMMARY | 2025-01-19 16:55 | XMS_ITS | Encounter Summary ---
Author Organization [employer] Address [address] [facility] [address] [place] [address] Care Team Providers Care Mixologist Name Role Phone Citlali Tee NP Primary Care Provider [phone] Reason for Visit * Reason Onset Date Comments Med Refill 09/06/2024 Encounter Details Date Type Department Care Team (Late st Contact Info) Description 09/06/2024 Refill [facility] [address], [place] [phone] Sarah Mukherjee NP [address] [place], [place] [phone] Arthralgia of both hands Social History Tobacco [...] documented as of this encounter Care Teams Mixologist Relationship Specialty Start Date End Date Citlali Tee NP [address] [place] [id number] PCP - General Family Medicine 07/14/23 documented as of this encounter
--- OUTSIDE RECORDS SUMMARY | 2025-01-19 16:55 | XMS_ITS | Clinical Summary ---
Author Organization [employer] Address [address] [facility] [address] [place] [address] Care Team Providers Care Certified Ophthalmic Assistant Name Role Phone Citlali Tee JANE Primary Care Provider [phone] Allergies Active Allergy Reactions Criticality Noted Date [...] Encounters Date Type Department Care Team Description 01/14/2025 Orders Only GENERIC EXTERNAL DATA DEPARTMENT Provider, Generic External Data 01/07/2025 Orders Only GENERIC EXTERNAL DATA DEPARTMENT Provider, Generic External Data 12/06/2024 Refill [facility] [address] [place] [address] Citlali Tee NP Other hyperlipidemia 11/01/2024 Orders Only [facility] External Provider, [facility] from Last 3 Months Immunizations Immunization [...] 04/30/2018, Additional history exists Diabetes: Hemoglobin A1C 03/08/202503/08/2 024, 10/24/2023, 09/18/2021, Additional history exists SDOH Screening 08/10/2025 08/10/2024 Tobacco Screening 08/10/2025 08/10/2024 DTaP/Tdap/Td Vaccines (2 - Td or Tdap) 03/04/2026 03/04/2016 Lipid Panel 07/13/2028 07/14/2023, 01/03, 10/06/2020 Colonoscopy 2032 05/02/2022 Colorectal Cancer Screening 2032 RSV Patients and Patients Aged 60 years or older (1 - 1-dose 75+ series) 2034 Zoster Vaccines Completed 03/23/2021, 01/19/2021 Hepatitis C Screening Completed 01/14/2025, 024 HIB Vaccines Aged Out No longer eligi [...] Procedure Name Priority Date/Time Associated Diagnosis Comments HEPATITIS B, C PROFILE Routine 01/14/2025 12:20 PM EDT SED RATE BY MODIFIED WESTERGREN Routine 01/14/2025 12:20 PM EDT C-REACTIVE PROTEIN Routine 01/14/2025 12 :20 PM EDT COMPREHENSIVE METABOLIC PANEL Routine 01/14/2025 12:20 PM EDT CBC WITH AUTO DIFFERENTIAL Routine 01/14/2025 12:20 PM EDT BASIC METABOLIC PANEL Routine 01/07/2025 9:[address] ABDOMEN PELVIS W AND WO CONTRAST Routine 11/01/2024 10:41 AM EDT BASIC METABOLIC PANEL Routine 10/30/2024 7:59 AM EDT Hypertension, unspecified type Essential hypertension HEMOGLOBIN A1C Routine 03/08/2024 9:40 AM EST Mixed hyperlipidemia LIPID PANEL, STANDARD Routine 07/14/2023 10:50 AM EDT Essential hypertension Arthralgia of both hands Mixed hyperlipidemia Primary hypertension HM COLONOSCOPY Routine 05/02/2022 from Last 3 Months or Most Recently Relevant to Health Maintenance Results * Hepatitis B, C Profile (01/14/2025 12:20 PM EDT) [facility] ~Hepatitis B Surface Antibody REACTIVE Nonreactive [facility] Comment:REACTIVE: > 11.99 mI U/mL Hepatitis B Core Antibody Reactive Nonreactive [facility] Comment:Presumptive evidence of anti-HBc. Hepatitis C Antibody Nonreactive Nonreactive [facility] Comment:Antibodies to HCV no t detected; does not exclude early acuteHCV infection. Hepatitis B Surface Ag Negative Negative [facility] 01/14/2025 12:2 0 PM EDT 01/14/2025 12:20 PM EDT us Generic External Data Provider LAB BLOOD ORDERAB LES Final Result [facility] [address] [place] [phone] * (ABNORMAL) CBC auto differential (01/14/2025 12:20 PM EDT) [facility] White Blood Count 5.4 4.8 - 10.8 X10*3/uL [facility] Red Blood Count 4.03(L) 4.60 - 5.80 X10*6/uL [facility] Hemoglobin 12.3(L) 14.0 - 18.0 g/dl [facility] Hematocrit 37.4(L) 42.0 - 52.0 % [facility] Mean Corpuscular Volume 92.8 80.0 - 98.0 fL [facility] Mean Corpuscular Hemoglobin 30.5 27.0 - 33.0 pg [facility] Mean Corpuscular HGB Conc 32.9 31.0 - 36.0 g/dl [facility] Red Cell Distribution Width 13.5 11.0 - 16.0 % [facility] Platelet Count 257 160 - 400 X10*3/uL [facility] Mean Platelet Volume 10.4 9.4 - 12.4 fL [facility] Neutrophils Percent Auto 62.1 45 - 73 % [facility] Imm Gran Pct Auto 0.6(H) 0.0 - 0.4 % [facility] Lymphocytes Percent Auto 24.8 20 - 40 % [facility] Monocytes Percent Auto 8.6 2 - 11 % [facility] Eosinophils Percent Auto 3.3 0 - 4 % [facility] Basophils Percent Auto 0.6 0 - 2 % [facility] NRBC Pct Auto 0.0 0.0 - 0.2 /100WBC [facility] Neutrophils Absolute Auto 3.4 2.0 - 8.3 x10*3/uL [facility] Imm Gran Abs Auto 0.03 0.00 - 0.03 X10*3/uL [facility] Lymphocytes Absolute Auto 1.4 1.2 - 4.9 X10*3/uL [facility] Monocytes Absolute Auto 0.5 0.1 - 1.2 X10*3/uL [facility] Eosinophils Absolute Auto 0.2 0.0 - 0.4 X10*3/uL [facility] Basophils Absolute Auto 0.0 0.0 - 0.2 X10*3/uL [facility] NRBC Abs Auto 0.000 0.0 - 0.012 X10*3/uL [facility] 01/14/2025 12:2 0 PM EDT 01/14/2025 12:20 PM EDT Generic External Data Provider LAB BLOOD ORDERAB LES Final Result Performing Organization Address [facility] de Phone Number [facility] [address] [place] [phone] * Sed Rate by Modified Vikergren (01/14/2025 12:20 PM EDT) Pathologist [facility] Erythrocyte Sedimentation Rate 7 0 - 15 MM/HR [facility] Comment:Patients with polycy themia and many hemoglobin abnormalitiesmay have depressed sed rates whereas patients with anemiamay have elevated sed rates. 01/14/2025 12:2 0 PM EDT 01/14/2025 12:20 PM EDT Generic External Data Provider LAB BLOOD ORDERAB LES Final Result Performing Organization Address [facility] de Phone Number [facility] [address] [place] [phone] * C-reactive Protein (01/14/2025 12:20 PM EDT) [facility] C Reactive Protein 0.16 < or = 0.50 mg/dL [facility] 01/14/2025 12:2 0 PM EDT 01/14/2025 12:20 PM EDT Generic External Data Provider LAB BLOOD ORDERAB LES Final Result Performing Organization Address [facility] de Phone Number [facility] [address] [place] [phone] * (ABNORMAL) Comprehensive Metabolic Panel (01/14/2025 12:20 PM EDT) Pathologist [facility] Sodium 141 135 - 145 mmol/L [facility] Potassium 3.6 3.3 - 5.1 mmol/L [facility] Chloride 107 96 - 108 mmol/L [facility] Carbon Dioxide 26 22 - 29 mmol/L [facility] Anion Gap 12 12 - 20 [facility] Urea Nitrogen (BUN) 23(H) 9 - 16 mg/dL [facility] Creatinine, Serum 1.09 0.5 - 1.4 mg/dL [facility] Estimated Glomerular Filt Rate >60 [facility] Comment:Chronic Kidney Disea se: Estimated GFR < 60 mL/min/[id number] Kidney Disease: Estimated GFR < 15 mL/min/1.73m2 Glucose 147(H) 60 - 115 mg/dL [facility] Calcium 10.6(H) 8.4 - 10.2 mg/dL [facility] Bilirubin, Total 0.3 0.0 - 1.0 mg/dL [facility] Aspartate Amino Transferase 23 5 - 37 U/L [facility] Alanine Aminotransferase 28 0 - 40 U/L [facility] Total Protein 7.6 6.5 - 8.0 g/dL [facility] Albumin Level 4.5 3.5 - 5.0 g/dL [facility] Alkaline Phosphatase 95 39 - 117 U/L [facility] 01/14/2025 12:2 0 PM EDT 01/14/2025 12:20 PM EDT us Generic External Data Provider LAB BLOOD ORDERAB LES Final Result [facility] [address], [place] [phone] * (ABNORMAL) Basic Metabolic Panel (01/07/2025 9:33 AM EDT) Only the most recent of2 resultswithin the time period is included. Sodium 141 135 - 145 mmol/L [facility] Potassium 3.7 3.3 - 5.1 mmol/L [facility] Chloride 107 96 - 108 mmol/L [facility] Carbon Dioxide 27 22 - 29 mmol/L [facility] Anion Gap 11(L) 12 - 20 [facility] Urea Nitrogen (BUN) 17(H) 9 - 16 mg/dL [facility] Creatinine, Serum 0.96 0.5 - 1.4 mg/dL [facility] Estimated Glomerular Filt Rate >60 [facility] Comment:Chronic Kidney Disea se: Estimated GFR < 60 mL/min/1.12r2Tgnseq Kidney Disease: Estimated GFR < 15 mL/min/1.73m2 Glucose 106 60 - 115 mg/dL [facility] Calcium 10.5(H) 8.4 - 10.2 mg/dL [facility] 01/07/2025 9:33 AM EDT 01/07/2025 9:33 AM EDT us Generic External Data Provider LAB BLOOD ORDERAB LES Final Result Performing Organization Address City/State/[facility] Co de Phone Number [facility] [address] [place] [phone] * CT Abdomen Pelvis w/ and w/o Contrast (11/01/2024 10:41 AM EDT) Anatomical Region Laterality Modality Body, Pelvis, Abdomen Computed T omography 11/01/2024 10:4 1 AM EDT Narrative 11/01/2024 12:40 PM EDT [place] [id number] [address] Scan Report Signed Patient: Ag Gill MR#: [id number] : 1960 Acct:[id number] Age/Sex: 64 / M ADM Date: 11/01/24 Loc: HO.CT Attending Dr: Azeb ANTONIO Ordering Physician: Azeb García Date of Service: 11/01/24 Procedure(s): CT abdomen pelvis wo/w IV con Accession Number(s): [id number] cc: Citlali Tee NP; [facility]eb [facility]ía[facility] Report Number: [id number]: Total DLP = 892.00 mGy-cm EXAMINATION: CT [...] 11/01/24 1238 DD/ 1041 TD/TT: 11/01/24 1144 Global Creative Chairman: Procedure Note Donotuseinterpreter, Image - 11/01/[address] [place] [address] [address] Scan Report Signed Patient: Ag Gill HMR#: [id number] : 9Acct:[id number] Age/Sex: 64 / MADM Date: 11/01/24 Loc: HO.CT Attending Dr: Azeb VICTORIA Ordering Physician: Azeb García Date of Service: 11/01/24 Procedure(s): CT abdomen pelvis wo/w IV con Accession Number(s): [id number] cc: Citlali Tee NP; Azeb García Report Number: [id number]: Total DLP = 892.00 mGy-cm EXAMINATION: CT [...] 11/01/24 1238 DD/ 1041 TD/TT: 11/01/24 1144 Global Creative Chairman: [facility] External Provider IMG CT PROCEDURES Final Result * Hemoglobin A1c (03/08/2024 9:40 AM EST) Hemoglobin A1c 5.7 <6.0 % [facility] Comment:Hemoglobin A1C Refer ence Range Adults: 4.8 - 6.0 % Non diabetic: < 6.0 % Goal: < 7.0 %Additional Action Suggested: > 8.0 %Note: Hemoglobin A1c results are invalid for patients with abnormal amounts of HbF. Blood transfusions may impact the HbA1c concentration in the patient sample. Estimated Average Glucose 117 mg/dL [facility] Comment:eAG = Estimated ave rage glucose which is %A1C expressed asaverage glucose, using the formula of the G7L-VoguompUqwfdfr Glucose study (ADAG), Diabetes Care, Vol.31,#8,Dec. 2007 Blood Venous blood specimen / Unknown 03/08/2024 9:40 AM EST 03/08/2024 11:04 AM EST us Citlali Tee NP LAB BLOOD ORDERABLES Final Resul t Performing Organization Address [facility] Co de Phone Number [facility] [address] [place] [phone] * Lipid Panel, Standard (07/14/2023 10:50 AM EDT) Triglycerides 100 <150 mg/dL [facility] Comment:Desirable Triglyceri de: less than 150 mg/dLBorderline High Triglyceride 150-199 mg/dLHigh Triglyceride: 200-499 mg/dLVery High Triglyceride: greater than or equal to 5OO mg/dL Cholesterol 137 <200 mg/dL [facility] Comment:Desirable Cholestero l: less than 200 mg/dLBorderline High Cholesterol: 200-239 mg/dLHigh Cholesterol: greater than 239 mg/dL LDL Cholesterol Calculated 74 <100 mg/dL [facility] Comment:Desirable LDL: less than 100 mg/dLNear Optimal/Above Optimal LDL: 110- 129 mg/dLBorderline High LDL: 130-159 mg/dLHigh LDL: 160-189 mg/dLVery High LDL: greater than or equal to 190 mg/dL HDL Cholesterol 43 >40 mg/dL [facility] Comment:Desirable HDL: great er than 40 mg/dL Note: This HDL assay may give artificially low results in patients with liver disease. Blood Venous blood specimen / Unknown 07/14/2023 10:50 AM EDT 07/14/2023 1:02 PM EDT us Saba Hatfield MD LAB BLOOD ORDERABLES Final Result Performing Organization Address City/[facility]/ZIP Co de Phone Number [facility] [address] [place] [phone] * Hm Colonoscopy (05/02/2022) Colonoscopy Normal Normal us Shawanda Feldman NP HEALTH MAINTENANCE Edited Resul t - Final from Last 3 Months or Most Recently Relevant to Health Maintenance Insurance [facility] , [address] [address] [facility] [address] [phone] Care Teams Certified Ophthalmic Assistant Relationship Specialty Start Date End Date Citlali Tee NP [address] [place] [address] PCP - General Family Medicine 07/14/23
--- OUTSIDE RECORDS SUMMARY | 2025-01-19 16:55 | XMS_ITS | Encounter Summary ---
Author Organization [employer] Address [address] [facility] [address] [place] [address] Care Team Providers Care Chemical Engineer Name Role Phone Citlali Tee NP Primary Care Provider [phone] Reason for Visit * Reason Comments Med Refill Encounter Details Date Type Department Care Team (Late st Contact Info) Description 05/23/2024 Refill [facility] [address] [place], [place] [phone] Citlali Tee NP [address] [place], [place] [phone] Essential hypertension; Primary hypertension; Other hyperlipidemia Social [...] documented as of this encounter Care Teams Chemical Engineer Relationship Specialty Start Date End Date Citlali Tee NP [address] [place] [phone] PCP - General Family Medicine 07/14/23 documented as of this encounter
--- OUTSIDE RECORDS SUMMARY | 2025-01-19 16:55 | XMS_ITS | Encounter Summary ---
Author Organization [employer] Address [address] [facility] [address] [place] [address] Care Team Providers Care Media Reconciliation Specialist Name Role Phone Citlali Tee JANE Primary Care Provider [phone] Reason for Visit * Reason Onset Date Comments Med Refill 09/06/2024 Encounter Details Date Type Department Care Team ([facility] st Contact Info) Description 09/06/2024 Refill [facility] [address] [place], [place] [phone] Name, MD Ayden [address] [place] [address] Other hyperlipidemia Social History Tobacco Use Types [...] documented as of this encounter Care Teams Media Reconciliation Specialist Relationship Specialty Start Date End Date Citlali Tee NP [address] [place] [phone] PCP - General Family Medicine 07/14/23 documented as of this encounter
--- OUTSIDE RECORDS SUMMARY | 2025-01-19 16:56 | XMS_ITS | Encounter Summary ---
Author Organization [employer] Address [address] [facility] [address] [place] [address] Care Team Providers Care Material Assembler Name Role Phone Citlali Tee JANE Primary Care Provider [phone] Reason for Visit * Reason Comments Med Refill Encounter Details Date Type Department Care Team (Late st Contact Info) Description 08/08/2023 Refill [facility] [address] [place], [place] [phone] Estelle Cain ANP [address] [place], [place] [phone] Essential hypertension; Primary hypertension Social History Tobacco [...] documented as of this encounter Care Teams Material Assembler Relationship Specialty Start Date End Date Citlali Tee NP [address] [place] [address] PCP - General Family Medicine 07/14/23 documented as of this encounter
--- OUTSIDE RECORDS SUMMARY | 2025-01-19 16:56 | XMS_ITS | Encounter Summary ---
Author Organization [employer] Address [address] [facility] [address] [place] [address] Care Team Providers Care Manager Testing Name Role Phone Estelle Cain GINI Primary Care Provider [phone] Citlali Tee STORE CLERK Primary Care Provider [phone] Encounter Details Date Type Department Care Team (Late st Contact Info) Description 04/16/2023 Orders Only [facility] [address] [place] [address] Susan Pimentel LPN Social History Tobacco Use [...] FACTOR Routine 10/24/2023 11: 19 AM EDT [id number] G ENZYME Routine 10/24/2023 11:19 AM EDT [...] IMMUNOGLOBULIN G 1340 600 - 1540 mg/dL [facility] IMMUNOGLOBULIN A 233 70 - 320 mg/dL [facility] Immunoglobulin M 84 50 - 300 mg/dL [facility] Comment:THIS TEST WAS PERFOR MED AT:[facility] [place] [id number] BLANCHARD MD Immunofixation Result SEE NOTE [facility] Comment:Normal pattern. No m onoclonal proteins detected. 10/24/2023 11:1 9 AM EDT 10/24/2023 11:19 AM EDT us Generic External Data Provider LAB BLOOD ORDERAB LES Final Result [facility] [address] [place] [phone] * (ABNORMAL) Angiotensin -1- Converting Enzyme (10/24/2023 11:19 AM EDT) Pathologist [facility] Angiotensin Converting Enzyme 70(A) 9 - 67 U/L [facility] Comment:THIS TEST WAS PERFOR MED AT:[id number] [place] [address]VVKNEVFTYLER DU MD,PHD 10/24/2023 11:1 9 AM EDT 10/24/2023 11:19 AM EDT us Generic External Data Provider LAB BLOOD ORDERAB LES Final Result [facility] [address] [place] [phone] * (ABNORMAL) Protein Electrophoresis and [place]/[employer] (10/24/2023 11:19 AM EDT) Pathologist [facility] Prot Elec - Total Protein 8.2(A) 6.1 - 8.1 g/dL [facility] Prot Elec - Albumin 4.7 3.8 - 4.8 g/dL [facility] Prot Elec - Alpha1 0.3 0.2 - 0.3 g/dL [facility] Prot Elec - Alpha2 0.8 0.5 - 0.9 g/dL [facility] Prot Elec - Beta 1 0.6 0.4 - 0.6 g/dL [facility] Prot Elec - Beta 2 0.3 0.2 - 0.5 g/dL [facility] Prot Elec - Gamma 1.5 0.8 - 1.7 g/dL [facility] PES - Abn Protein Band 1 [facility] PES-Abn Protein Band 2 [facility] PES-Abn Protein Band 3 [facility] Prot Elec - Interpretation SEE NOTE [facility] Comment:Normal Serum Protein Electrophoresis Pattern.No abnormal protein bands (M-protein) detected.THIS TEST WAS PERFORMED AT:[facility] [place] [id number] BLANCHARD MD 10/24/2023 11:1 9 AM EDT 10/24/2023 11:19 AM EDT us Generic External Data Provider LAB BLOOD ORDERAB LES Final Result [facility] [address] [place] [address] [phone] * SHERYL Screen,IFA, with Reflex to Titer and Pattern (10/24/2023 11:19 AM EDT) Anti Nuclear Antibody Screen NEGATIVE NEGATIVE [facility] Comment:SHERYL IFA is a first [...] clinicallysuspected inflammatory myopathies.AC-0: NegativeInternational Consensus on SHERYL Patterns(https://doi.org/10.1515/ligf-5014-2893)For additional information, please refer tohttp://education.Recruits.com/faq/EYG127(This link is being provided for informational/educational purposes only.)THIS TEST WAS PERFORMED AT:[facility] [place] [id number] BLANCHARD MD SHERYL Titer TNP [facility] SHERYL Pattern TNP [facility] SHERYL TITER 2 (REF LAB) TNP [facility] SHERYL Pattern 2 TNP [facility] SHERYL TITER 3 [facility] SHERYL PATTERN 3 [facility] 10/24/2023 11:1 9 AM EDT 10/24/2023 11:19 AM EDT Generic External Data Provider LAB BLOOD ORDERAB LES Final Result Performing Organization Address [facility] Co de Phone Number [facility] [address] [place] [phone] * Cyclic Citrullinated Peptide (CCP) Antibody (IgG) (10/24/2023 11:19 AM EDT) Pathologist [facility] Cyclic Citrullinated Peptide <16 UNITS [facility] Comment:Reference RangeNegat travis: <20Weak Positive: 20-39Moderate Positive: 40-59Strong Positive: >59THIS TEST WAS PERFORMED AT:[facility] [place] [id number] BLANCHARD MD 10/24/2023 11:1 9 AM EDT 10/24/2023 11:19 AM EDT Generic External Data Provider LAB BLOOD ORDERAB LES Final Result Performing Organization Address [facility] de Phone Number [facility] [address] [place] [phone] * HIV-1/2 Antigen and Antibodies, Fourth Generation, with Reflexes (10/24/2023 11:19 AM EDT) [facility] HIV AB/AG Nonreactive Nonreactive [facility] Comment:HIV-1 p24 Ag and/or HIV-1/HIV-2 Ab not detected.A test result that is nonreactive does not exclude thepossibility of exposure to or infection with HIV-1 and/orHIV-2. Nonreactive results in this assay for individualswith prior exposure to HIV-1 and/or HIV-2 may be due toantigen and antibody levels that are below the limit ofdetection of this assay.The [employer] HIV Ag/Ab Combo assay result andsupplemental assay results should be interpreted inconjunction with the patient's clinical presentation,history and other laboratory results. If the results areinconsistent with clinical evidence, additional testing issuggested to confirm the result. 10/24/2023 11:1 9 AM EDT 10/24/2023 11:19 AM EDT Generic External Data Provider LAB BLOOD ORDERAB LES Final Result Performing Organization Address [facility] Co de Phone Number [facility] [address] [place] [phone] * Hepatitis Panel, General (10/24/2023 11:19 AM EDT) Pathologist [facility] Hepatitis A IgM Nonreactive Nonreactive [facility] Comment:IgM antibodies to PITTS V not detected; does not exclude earlyacute or recovered HAV infection. ~Hepatitis B Surface Antibody REACTIVE Nonreactive [facility] Comment:REACTIVE: > 11.99 mI U/mL Hepatitis B Core Antibody Reactive Nonreactive [facility] Comment:Presumptive evidence of anti-HBc. Hepatitis C Antibody Nonreactive Nonreactive [facility] Comment:Antibodies to HCV no t detected; does not exclude early acuteHCV infection. Hepatitis B Surface Ag Negative Negative [facility] 10/24/2023 11:1 9 AM EDT 10/24/2023 11:19 AM EDT [employer] External Data Provider LAB BLOOD ORDERAB LES Final Result Performing Organization Address [facility] de Phone Number [facility] [address] [place] [phone] * T-SPOT??.TB (10/24/2023 11:19 AM EDT) Pathologist [facility] T Spot TB Negative Negative [facility] Comment:A negative test resu lt [...] as aquantitative test. TS PANEL A 0 [facility] TS PANEL B 0 [facility] Negative Control Passed [facility] Positive Control Passed [facility] Comment:For additional infor matumair, please refer tohttp://education.Extreme Reach (formerly Brand[employer])/faq/NQP703(This link is being provided for informational/educational purposes only.)THIS TEST WAS PERFORMED AT:[employer]/[place] [id number] [place] [address]FSUUIWZTYLER DU MD,PHD 10/24/2023 11:1 9 AM EDT 10/24/2023 11:19 AM EDT us Generic External Data Provider LAB BLOOD ORDERAB LES Final Result Performing Organization Address City/[facility]/ZIP Co de Phone Number [facility] [address] [place] [phone] * Sed Rate by Modified Vikergren (10/24/2023 11:19 AM EDT) Erythrocyte Sedimentation Rate 7 0 - 15 MM/HR [facility] Comment:Patients with polycy themia and many hemoglobin abnormalitiesmay have depressed sed rates whereas patients with anemiamay have elevated sed rates. 10/24/2023 11:1 9 AM EDT 10/24/2023 11:19 AM EDT us Generic External Data Provider LAB BLOOD ORDERAB LES Final Result Performing Organization Address [facility]/ZIP Co de Phone Number [facility] [address] [place] [phone] * C-reactive Protein (10/24/2023 11:19 AM EDT) C Reactive Protein 0.16 < or = 0.50 mg/dL [facility] 10/24/2023 11:1 9 AM EDT 10/24/2023 11:19 AM EDT us Generic External Data Provider LAB BLOOD ORDERAB LES Final Result [facility] [address] [place] [phone] * (ABNORMAL) Comprehensive Metabolic Panel (10/24/2023 11:19 AM EDT) Sodium 140 135 - 145 mmol/L [facility] Potassium 3.7 3.3 - 5.1 mmol/L [facility] Chloride 107 96 - 108 mmol/L [facility] Carbon Dioxide 28 22 - 29 mmol/L [facility] Anion Gap 9(L) 12 - 20 [facility] Urea Nitrogen (BUN) 18(H) 9 - 16 mg/dL [facility] Creatinine, Serum 0.99 0.5 - 1.4 mg/dL [facility] Estimated Glomerular Filt Rate >60 [facility] Comment:NOTE: For -Am erican individuals, multiply the result by 1.210.Chronic Kidney Disease: Estimated GFR < 60 mL/min/1.51q2Kaqxxe Kidney Disease: Estimated GFR < 15 mL/min/1.73m2 Glucose 105 60 - 115 mg/dL [facility] Calcium 11.3(H) 8.4 - 10.2 mg/dL [facility] Bilirubin, Total 0.5 0.0 - 1.0 mg/dL [facility] Aspartate Amino Transferase 28 5 - 37 U/L [facility] Alanine Aminotransferase 22 0 - 40 U/L [facility] Total Protein 7.8 6.5 - 8.0 g/dL [facility] Albumin Level 4.5 3.5 - 5.0 g/dL [facility] Alkaline Phosphatase 74 39 - 117 U/L [facility] 10/24/2023 11:1 9 AM EDT 10/24/2023 11:19 AM EDT us Generic External Data Provider LAB BLOOD ORDERAB LES Final Result Performing Organization Address [facility] Co de Phone Number [facility] [address] [place] [phone] * Rheumatoid Factor (10/24/2023 11:19 AM EDT) Rheumatoid Factor <13.0 <15.0 IU/mL [facility] 10/24/2023 11:1 9 AM EDT 10/24/2023 11:19 AM EDT us Generic External Data Provider LAB BLOOD ORDERAB LES Final Result Performing Organization Address [facility] Co vt Phone Number [facility] [address] [place] [phone] * Hemoglobin A1c (10/24/2023 11:19 AM EDT) Hemoglobin A1c 5.5 <6.0 % [facility] Comment:Hemoglobin A1C Refer ence Range Adults: 4.8 - 6.0 % Non diabetic: < 6.0 % Goal: < 7.0 %Additional Action Suggested: > 8.0 %Note: Hemoglobin A1c results are invalid for patients with abnormal amounts of HbF. Blood transfusions may impact the HbA1c concentration in the patient sample. Estimated Average Glucose 111 mg/dL [facility] Comment:eAG = Estimated ave rage glucose which is %A1C expressed asaverage glucose, using the formula of the L6V-NuhhttrFeelnzv Glucose study (ADAG), Diabetes Care, Vol.31,#8,Dec. 2007 10/24/2023 11:1 9 AM EDT 10/24/2023 11:19 AM EDT us Generic External Data Provider LAB BLOOD ORDERAB LES Final Result Performing Organization Address [facility]/ZIP Co de Phone Number [facility] [address] [place] [phone] * (ABNORMAL) CBC auto differential (10/24/2023 11:19 AM EDT) White Blood Count 4.4(L) 4.8 - 10.8 X10*3/uL [facility] Red Blood Count 4.15(L) 4.60 - 5.80 X10*6/uL [facility] Hemoglobin 12.4(L) 14.0 - 18.0 g/dl [facility] Hematocrit 37.7(L) 42.0 - 52.0 % [facility] Mean Corpuscular Volume 90.8 80.0 - 98.0 fL [facility] Mean Corpuscular Hemoglobin 29.9 27.0 - 33.0 pg [facility] Mean Corpuscular HGB Conc 32.9 31.0 - 36.0 g/dl [facility] Red Cell Distribution Width 12.7 11.0 - 16.0 % [facility] Platelet Count 277 160 - 400 X10*3/uL [facility] Mean Platelet Volume 10.3 9.4 - 12.4 fL [facility] Neutrophils Percent Auto 50.4 45 - 73 % [facility] Imm Gran Pct Auto 0.5(H) 0.0 - 0.4 % [facility] Lymphocytes Percent Auto 33.9 20 - 40 % [facility] Monocytes Percent Auto 10.0 2 - 11 % [facility] Eosinophils Percent Auto 4.3(H) 0 - 4 % [facility] Basophils Percent Auto 0.9 0 - 2 % [facility] NRBC Pct Auto 0.0 0.0 - 0.2 /100WBC [facility] Neutrophils Absolute Auto 2.2 2.0 - 8.3 x10*3/uL [facility] Imm Gran Abs Auto 0.02 0.00 - 0.03 X10*3/uL [facility] Lymphocytes Absolute Auto 1.5 1.2 - 4.9 X10*3/uL [facility] Monocytes Absolute Auto 0.4 0.1 - 1.2 X10*3/uL [facility] Eosinophils Absolute Auto 0.2 0.0 - 0.4 X10*3/uL [facility] Basophils Absolute Auto 0.0 0.0 - 0.2 X10*3/uL [facility] NRBC Abs Auto 0.000 0.0 - 0.012 X10*3/uL [facility] 10/24/2023 11:1 9 AM EDT 10/24/2023 11:19 AM EDT us Generic External Data Provider LAB BLOOD ORDERAB LES Final Result Performing Organization Address City/State/[facility] Co de Phone Number [facility] [address] [place] [phone] documented in this encounter Visit Diagnoses Not on filedocumented in this encounter Care Teams Manager Testing Relationship Specialty Start Date End Date Estelle Cain ANP [address] [place] [address] PCP - General Family Medicine 12/26/21 07/13/23 Citlali Tee NP [address] [place] [address] PCP - General Family Medicine 07/14/23 documented as of this encounter
--- OUTSIDE RECORDS SUMMARY | 2025-01-19 16:56 | XMS_ITS | Clinical Summary ---
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
--- OUTSIDE RECORDS SUMMARY | 2025-01-19 16:56 | XMS_ITS | Encounter Summary ---
Author Organization [employer] Address [address] [facility] [address] [place] [address] Care Team Providers Care Nc Manager Name Role Phone Citlali Tee JANE Primary Care Provider [phone] Encounter Details Date Type Department Care Team (Late st Contact Info) Description 12/26/2023 Orders Only [facility] [address] [place] [address] Provider, MD Claude Social History Tobacco Use [...] documented as of this encounter Care Teams Nc Manager Relationship Specialty Start Date End Date Citlali Tee NP [address] [place] [address] PCP - General Family Medicine 07/14/23 documented as of this encounter
--- OUTSIDE RECORDS SUMMARY | 2025-01-19 16:56 | XMS_ITS | Clinical Summary ---
Author Organization [facility] Address [address] [place] [address] Care Team Providers Care Satellite Tv Installer Name Role Phone Americo Hu PA-C Primary Care Provider [phone] Source Comments PLEASE NOTE, if this patient [...] pressure) 02/13/2016 Rheumatoid arthritis involving both hands ([facility]) 02/01/2016 Resolved Problems Problem Noted Date Diagnosed [...] exists Depression Annual Screen 05/05/2024 05/27/2019, 04/05 [id number] ( season) 2025 07/17/2021, 09/25/2020, 09/04/2020 Imm-Influenza [...] ANTIBODIES (06/03/2019 9:45 AM EST) Pathologist [facility] HIV 1 AND 2 ANTIBODY SCREEN NEGATIVE NEGATIVE [facility] Comment: This assay is a [...] 9:45 AM EST 06/03/2019 9:46 AM EST [facility] - 06/03/2019 12:50 PM EST [employer], [place] [address] Farm Contractor - Dhara Flores MD PT ID [id number] ORD# [id number] Mercedes RAMIREZ LAB - BLOOD DRAW Final Resu lt Performing Organization Address [facility] [place] [address], * HEMOGLOBIN, GLYCOSYLATED (A1C) (06/03/2019 9:45 AM EST) [facility] GLYCATED HEMOGLOBIN A1C 5.1 <6.5 % [facility] ESTIMATED AVERAGE GLUCOSE 100 mg/dL [facility] Blood specimen (specimen) Blood / Unknown 06/03/2019 9:45 AM EST 06/03/2019 9:46 AM EST [facility] - 06/03/2019 12:31 PM EST [employer], a member of [address] [address] Farm Contractor - Dhara Flores MD PT ID [id number] ORD# [id number] Mercedes RAMIREZ LAB - BLOOD DRAW Final Resu lt Performing Organization Address City/[facility] [place] [address], * (ABNORMAL) LIPID PANEL (06/03/2019 9:44 AM EST) CHOLESTEROL 187 0 - 200 mg/dL [facility] TRIGLYCERIDES 73 0 - 150 mg/dL [facility] HDL CHOLESTEROL 58 >40 mg/dL [facility] LDL CALCULATED 115(H) 0 - 100 mg/dL [facility] TC-HDLC RATIO 3.2 0 - 4.4 mg/dL [facility] Blood specimen (specimen) Blood / Unknown 06/03/2019 9:44 AM EST 06/03/2019 9:46 AM EST Narrative [facility] - 06/03/2019 12:01 PM EST [employer] [place] [address] Farm Contractor - Dhara Flores MD PT ID [id number] ORD# [id number] Mercedes Broedrick [facility] LAB - BLOOD DRAW Final Resu lt Performing Organization Address City/State/[facility] [place] [address], * (ABNORMAL) hepatitis ABC panel future (04/30/2018 9:50 AM EST) HEPATITIS B SURFACE ANTIBODY POSITIVE(A) NEGATIVE [facility] HEPATITIS B SURFACE ANTIGEN NEGATIVE NEGATIVE [facility] Comment: Over the counter supplements containing high doses of biotin may interfere with this assay. If interference is suspected, patients shoud be retested after refraining from biotin supplements for 72 hours. HEPATITIS C VIRUS DIAGNOSTIC NEGATIVE NEGATIVE [facility] HEPATITIS A ANTIBODY TOTAL POSITIVE(A) NEGATIVE [facility] Comment: Over the counter supplements containing high doses of biotin may interfere with this assay. If interference is suspected, patients shoud be retested after refraining from biotin supplements for 72 hours. HEPATITIS B CORE ANTIBODY POSITIVE(A) NEGATIVE [facility] Blood specimen (specimen) Blood / Unknown 04/30/2018 9:50 AM EST 04/30/2018 11:36 AM EST Narrative [facility] - 04/30/2018 7:16 PM EST [employer], a member of [address] [address] Farm Contractor - Janell Pollack MD PT ID [id number] ORD# [id number] Clinton Hanson MD LAB - BLOOD DRAW Edited Result - Final [facility]-[address] [address], from Last 3 Months or Most Recently Relevant to Health Maintenance Insurance [employer] ([facility]) Member Subscriber Plan / Payer (Ef fective 2019-Present) Name:Ag Gill Relation to Subscriber:Self Name:Ag Gill Payer ID:[id number] Group ID:Not on file Type:[employer] Address: [address] [place] [phone] [place] [address] [place] DENT[place] Care Teams Satellite Tv Installer Relationship Specialty Start Date End Date Americo Hu PA-C [address] [place] [phone] [facility] - General 10/12/21
--- OUTSIDE RECORDS SUMMARY | 2025-01-19 16:56 | XMS_ITS | Encounter Summary ---
Author Organization [facility] Address [address] [place] [address] Care Team Providers Care Market Reporter Name Role Phone Citlali Tee JANE Primary Care Provider [phone] Encounter Details Date Type Department Care Team (Late st Contact Info) Description 01/14/2025 Orders Only GENERIC EXTERNAL DATA DEPARTMENT Provider, Generic External Data Social History Tobacco Use Types Packs/Day Years [...] Diagnosis Comments HEPATITIS B, C PROFILE Routine 12:20 PM EDT CBC WITH AUTO DIFFERENTIAL Routine 01/14/2025 12:20 PM EDT SED RATE BY MODIFIED WESTERGREN Routine 01/14/2025 12:20 PM EDT C-REACTIVE PROTEIN Routine 01/14/2025 12 :20 PM EDT COMPREHENSIVE METABOLIC PANEL Routine 01/14/2025 12:20 PM EDT documented in this encounter Results * Hepatitis B, C Profile (01/14/2025 12:20 PM EDT) ~Hepatitis B Surface Antibody REACTIVE Nonreactive [facility] Comment:REACTIVE: > 11.99 mI U/mL Hepatitis B Core Antibody Reactive Nonreactive [facility] Comment:Presumptive evidence of anti-HBc. Hepatitis C Antibody Nonreactive Nonreactive [facility] Comment:Antibodies to HCV no t detected; does not exclude early acuteHCV infection. Hepatitis B Surface Ag Negative Negative [facility] 01/14/2025 12:2 0 PM EDT 01/14/2025 12:20 PM EDT us Generic External Data Provider LAB BLOOD ORDERAB LES Final Result Performing Organization Address City/State/[facility] Co de Phone Number [facility] [address] [place] [phone] * Sed Rate by Modified Yasmeenren (01/14/2025 12:20 PM EDT) Erythrocyte Sedimentation Rate 7 0 - 15 MM/HR [facility] Comment:Patients with polycy themia and many hemoglobin abnormalitiesmay have depressed sed rates whereas patients with anemiamay have elevated sed rates. 01/14/2025 12:2 0 PM EDT 01/14/2025 12:20 PM EDT us Generic External Data Provider LAB BLOOD ORDERAB LES Final Result Performing Organization Address [facility] Co de Phone Number [facility] [address] [place] [phone] * C-reactive Protein (01/14/2025 12:20 PM EDT) Pathologist [facility] C Reactive Protein 0.16 < or = 0.50 mg/dL [facility] 01/14/2025 12:2 0 PM EDT 01/14/2025 12:20 PM EDT Generic External Data Provider LAB BLOOD ORDERAB LES Final Result Performing Organization Address [facility] Co de Phone Number [facility] [address] [place] [phone] * (ABNORMAL) Comprehensive Metabolic Panel (01/14/2025 12:20 PM EDT) Pathologist [facility] Sodium 141 135 - 145 mmol/L [facility] Potassium 3.6 3.3 - 5.1 mmol/L [facility] Chloride 107 96 - 108 mmol/L [facility] Carbon Dioxide 26 22 - 29 mmol/L [facility] Anion Gap 12 12 - 20 [facility] Urea Nitrogen (BUN) 23(H) 9 - 16 mg/dL [facility] Creatinine, Serum 1.09 0.5 - 1.4 mg/dL [facility] Estimated Glomerular Filt Rate >60 [facility] Comment:Chronic Kidney Disea se: Estimated GFR < 60 mL/min/1.86p6Bolurv Kidney Disease: Estimated GFR < 15 mL/min/1.73m2 Glucose 147(H) 60 - 115 mg/dL [facility] Calcium 10.6(H) 8.4 - 10.2 mg/dL [facility] Bilirubin, Total 0.3 0.0 - 1.0 mg/dL [facility] Aspartate Amino Transferase 23 5 - 37 U/L [facility] Alanine Aminotransferase 28 0 - 40 U/L [facility] Total Protein 7.6 6.5 - 8.0 g/dL [facility] Albumin Level 4.5 3.5 - 5.0 g/dL [facility] Alkaline Phosphatase 95 39 - 117 U/L [facility] 01/14/2025 12:2 0 PM EDT 01/14/2025 12:20 PM EDT us Generic External Data Provider LAB BLOOD ORDERAB LES Final Result [facility] [address] [place] [phone] * (ABNORMAL) CBC auto differential (01/14/2025 12:20 PM EDT) White Blood Count 5.4 4.8 - 10.8 X10*3/uL [facility] Red Blood Count 4.03(L) 4.60 - 5.80 X10*6/uL [facility] Hemoglobin 12.3(L) 14.0 - 18.0 g/dl [facility] Hematocrit 37.4(L) 42.0 - 52.0 % [facility] Mean Corpuscular Volume 92.8 80.0 - 98.0 fL [facility] Mean Corpuscular Hemoglobin 30.5 27.0 - 33.0 pg [facility] Mean Corpuscular HGB Conc 32.9 31.0 - 36.0 g/dl [facility] Red Cell Distribution Width 13.5 11.0 - 16.0 % [facility] Platelet Count 257 160 - 400 X10*3/uL [facility] Mean Platelet Volume 10.4 9.4 - 12.4 fL [facility] Neutrophils Percent Auto 62.1 45 - 73 % [facility] Imm Gran Pct Auto 0.6(H) 0.0 - 0.4 % [facility] Lymphocytes Percent Auto 24.8 20 - 40 % [facility] Monocytes Percent Auto 8.6 2 - 11 % [facility] Eosinophils Percent Auto 3.3 0 - 4 % [facility] Basophils Percent Auto 0.6 0 - 2 % [facility] NRBC Pct Auto 0.0 0.0 - 0.2 /100WBC [facility] Neutrophils Absolute Auto 3.4 2.0 - 8.3 x10*3/uL [facility] Imm Gran Abs Auto 0.03 0.00 - 0.03 X10*3/uL [facility] Lymphocytes Absolute Auto 1.4 1.2 - 4.9 X10*3/uL [facility] Monocytes Absolute Auto 0.5 0.1 - 1.2 X10*3/uL [facility] Eosinophils Absolute Auto 0.2 0.0 - 0.4 X10*3/uL [facility] Basophils Absolute Auto 0.0 0.0 - 0.2 X10*3/uL [facility] NRBC Abs Auto 0.000 0.0 - 0.012 X10*3/uL [facility] 01/14/2025 12:2 0 PM EDT 01/14/2025 12:20 PM EDT us Generic External Data Provider LAB BLOOD ORDERAB LES Final Result [facility] [address] [place], [place] [phone] documented in this encounter Visit Diagnoses Not on filedocumented in this encounter Additional Health Concerns Assessment Noted Time PHQ-9 Depression Total Score: 0 07/28/19 11:03 AM EDT documented as of this encounter Care Teams Market Reporter Relationship Specialty Start Date End Date Citlali Tee NP [address] [place] [phone] PCP - General Family Medicine 07/14/23 documented as of this encounter
== END 2025-01-19 14:41 | disposition home or self-care (01) ==
LOC: HO.RHES 13:14
PROVIDERS: PCP Nurse Practitioner Family; Visit Provider Student in an Organized Health Care Education/Training Program
DX: M06.9 Rheumatoid arthritis, unspecified (principal); Z79.631 Long term (current) use of antimetabolite agent
CPT/HCPCS: 99214; G2211

== ENCOUNTER → 2025-01-19 13:13 | Outpatient (BNVA) | payer MEDICARE, MEDICAID, SELFPAY | PROVIDERS: PCP Nurse Practitioner Family; Visit Provider Student in an Organized Health Care Education/Training Program | DX: M06.9 Rheumatoid arthritis, unspecified (principal); Z79.631 Long term (current) use of antimetabolite agent | CPT/HCPCS: 99212 ==

== ENCOUNTER 2025-01-28 09:41 | Outpatient (AMB) | payer MEDICARE, MEDICAID, SELFPAY ==
[2025-01-28 09:43] VITALS: BP 120/72; PULSE 81; O2SAT 98; BMI 30.7
--- NOTE | 2025-01-28 09:43 | A.OFFVIS_ITS ---
Vital Signs 01/28/25 09:43 Height 5 ft 5 in Weight 184 lb 11.958 oz BMI 30.7 BP 120/72 Blood Pressure Location Rt brachial Position Sitting Pulse 81 Pulse Source Pulse Oximeter Pulse Oximetry (%) 98 Oxygen Delivery Method Room Air Intake Visit Reasons: Hypercalcemia Intake Note: Patient present today for Hypercalcemia office visit. Accompanied by: Self / Same As Patient Allergies ibuprofen (From MOTRIN) Allergy (Intermediate, Verified 01/28/25 09:43) RASH latex Allergy (Intermediate, Verified 01/28/25 09:43) Rash Medication List - Last Reconciled 01/28/25 by Autumn Patel MD amlodipine 10 mg PO DAILY atorvastatin 10 mg PO DAILY cholecalciferol (vitamin D3) 50 mcg PO DAILY 1 month folic acid 1 mg PO DAILY hydrochlorothiazide 12.5 mg PO DAILY methotrexate sodium 12.5 mg PO QWEEK olmesartan 40 mg PO DAILY prednisone 5 mg PO DIRECTED HPI Comments Details: 64-year-old male here today for follow up of PTH mediated hypercalcemia HPI from prior visit Noted to have high calcium at least dating back May 2021 since then caclium levels have been in the range of 11.1- 11.2. Most recent labs 03/08/24 showed calcium of 11.2 with albumin of 4.3, PTH 141, vitamin D 37, normal kidney function. Had a kidney stones many years ago, nothing recently in the last 15 years. No hematuria. No fractures. On Losartan- HCTZ 12.5 mg daily now since 2 years. Not on calcium supplements Takes vitamin D 1000 untis daily for the past 6 months Milk one serving every 2 weeks. 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 No family history of kidney stones or calcium problems. Interval history 04/29/24 Remains off HCTZ,. Stopped Last visit 03/15/2024 BP records 130s / 60 to 80s at home maintaing a log Currently taking vitamin D 1000 units daily Still not taking much calcium in diet Bone density 04/22/24 : normal 03/19/24 : labs showed total calcium improved to 10.1 with albumin of 4.2, corrected calcium would be 9.9, ionized calcium mildly elevated at 5.8, PTH elevated at 155.7, normal kidney function, vitamin-D level of 33.3, 24 hour urine calcium of 166 with calcium creatinine ratio of 103, fractional excretion of calcium 0.009 Feca : 0.009 03/19/24 Interval history 07/29/2024: Remains off hydrochlorothiazide, blood pressure log reviewed has systolics mostly in the 130s to 140s, some readings in the 150s to 160s as well. Diastolics in the 80s to late 90s. Currently on vitamin D 1000 units daily Has started incorporating more calcium in diet about due servings per day 07/20/2024: Renal ultrasound did not show any nephrolithiasis, however did show a 2.9 cm mildly complex cyst in the left kidney 07/27/2024: Blood work showed calcium of 10.4 which is high, albumin of 4.3, corrected calcium would be 10.1, ionized calcium also mildly elevated at 5.8, phosphorus low at 2.4, vitamin-D 26.3, PTH of 174.1 Interval history 01/28/2025 07/28/2024 24 hour urine calcium of 147 with calcium creatinine ratio of 109. Fractional excretion of calcium is 0.00 9, FHH can not be ruled out, regardless he does not have hypercalciuria, 12/13/2024: Calcium 10.4, albumin 4.7, corrected calcium would be 9.7, ionized calcium elevated at 5.8, phosphorus normal at 2.9, EGFR greater than 60 with creatinine of 0.93, vitamin-D 37.1, PTH 207.04 December 2024, he saw Cardiology for uncontrolled hypertension, with systolics in the 150s and 160s and was restarted on hydrochlorothiazide 12.5 mg daily. Labs repeated in January 2025 with a calcium of 10.6, albumin of 4.5, corrected calcium would be 10. Physical exam General: sitting comfortably in no acute distress HEENT: normocephalic/atraumatic, moist oral mucosa Neck: supple, symmetrical, no thyromegaly , no dorsocervical or supraclavicular fat pads Cardiac: normal heart sounds Pulm: normal breath sounds B/L, no added breath sounds Abd: not distended, no tenderness Extremities: no edema, no signs of myxedema Neuro: AAO x3, Speech: normal, no facial droop, moving all 4 extremities Laboratory Tests 0107/14/23 10/24/23 12:03 10:50 11:19 Creatinine Estimated GFR Calcium 11.1 H 10.7 H 11.3 H Albumin 4.3 4.3 4.5 Angiotensin Convert Enz 25-OH Vitamin D Total 1,25 Dihydroxy Vit D 25-Hydroxy Vitamin D2 1,25 Dihydroxy Vit D2 25-Hydroxy Vitamin D3 1,25 Dihydroxy Vit D3 PTH Intact 03/02/24 03/08/24 09:46 09:40 Creatinine 1.02 1.01 Estimated GFR > 60 > 60 Calcium 11.1 H 11.2 H Albumin 4.3 4.3 Angiotensin Convert Enz 76.7 H 25-OH Vitamin D Total 26 L 37.3 1,25 Dihydroxy Vit D 36 25-Hydroxy Vitamin D2 <4 1,25 Dihydroxy Vit D2 <8 25-Hydroxy Vitamin D3 26 1,25 Dihydroxy Vit D3 36 PTH Intact 141.8 H Laboratory Tests 03/19/24 03/19/24 08:30 10:03 Creatinine 0.99 Estimated GFR > 60 Calcium 10.1 D Ionized Calcium 5.8 H Phosphorus 1.8 L Magnesium 2.2 Albumin 4.2 25-OH Vitamin D Total 33.3 PTH Intact 155.7 H Ur 24 Hour Volume 1300 Ur Creatinine mg/dL 134.50 Ur Creatinine 24 Hour 1.7 Ur Calcium 24 Hr 166 Calcium/Creat 24 Hr 103 Feca : 0.009 03/19/24 Laboratory Tests 03/19/24 07/27/24 08:30 09:40 Calcium 10.4 H Ionized Calcium 5.8 H Phosphorus 2.4 L Albumin 4.3 25-OH Vitamin D Total 26.3 L PTH Intact 174.1 H Ur 24 Hour Volume 1300 Ur Creatinine mg/dL 134.50 Ur Creatinine 24 Hour 1.7 Ur Calcium 24 Hr 166 Calcium/Creat 24 Hr 103 Laboratory Tests 07/28/24 09/22/24 10/30/24 15:30 09:12 07:59 MCH MCHC Creatinine Estimated GFR Calcium 10.1 10.2 Ionized Calcium Phosphorus Albumin 25-OH Vitamin D Total PTH Intact Ur 24 Hour Volume 1075 Ur Creatinine mg/dL 126.58 Ur Creatinine 24 Hour 1.4 Ur Calcium 24 Hr 147 Calcium/Creat 24 Hr 109 12/13/24 01/07/25 01/14/25 11:35 09:33 12:20 MCH 30.5 MCHC 32.9 Creatinine 0.93 0.96 1.09 Estimated GFR > 60 > 60 > 60 Calcium 10.4 H 10.5 H 10.6 H Ionized Calcium 5.8 H Phosphorus 2.9 Albumin 4.7 4.5 25-OH Vitamin D Total 37.1 PTH Intact 207.2 H Ur 24 Hour Volume Ur Creatinine mg/dL Ur Creatinine 24 Hour Ur Calcium 24 Hr Calcium/Creat 24 Hr US Renal 07/20/24 Comparison: None Findings: Right kidney normal size and echotexture, 9.3 cm length. Left kidney normal size and echotexture, 10.0 cm length. 2.9 x 2.8 x 2.5 cm cyst containing a septation within the midportion of the left kidney. 1.7 cm simple cyst within the upper pole of the left kidney. No hydronephrosis of either kidney. Normal color Doppler IMPRESSION: 1. No acute abnormality of the kidneys. 2. 2.9 cm mildly complex cyst within the midportion of the left kidney. This document has been electronically signed by: Dolly Campbell MD on 07/20/2024 15:43:13 EXAMINATION: BONE DENSITOMETRY 04/22 CLINICAL INDICATION: Hypercalcemia. Hyperparathyroidism. COMPARISON: This is the patient's baseline examination. TECHNIQUE: Using a NetVision DXA System (software version: 13.1) manufactured by [employer], dual-energy x-ray absorptiometry was performed of the lumbar spine, left hip and left forearm radius 33%. The images are of good technical quality. Summary results are attached. FINDINGS: LEFT FEMUR, NECK: BMD 1.143 g/cm2, Z-score 0.5, T-score 0.6, normal. LEFT FEMUR, TOTAL: BMD 1.348 g/cm2, Z-score 1.3, T-score 1.7, normal. AP SPINE L1-L4: BMD 1.253 g/cm2, Z-score -0.1, T-score 0.3, normal. LEFT FOREARM RADIUS 33%: BMD 1.065 g/cm2, Z-score 0.7, T-score 0.8, normal. IDENTIFIED RISK FACTORS: Rheumatoid arthritis, hyperparathyroidism, glucocorticoids. HISTORY OF FRACTURE: None listed. MEDICATIONS: Vitamin D. MM/XR DEXA appendicular skeleton IMPRESSION: 1. DIAGNOSIS: Normal bone density based on the lowest T-score value of 0.3 in the lumbar spine applying World Health Organization criteria. 2. 10-YEAR FRACTURE RISK PREDICTION, FRAX: According to the guidelines, FRAX calculation should only be performed on patients in the osteopenia bone density category. Therefore, FRAX was not performed on this patient. 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 Noted to have high calcium at least dating back May 2021 since then caclium levels have been in the range of 11.1- 11.2. I do not have any labs prior to that stating that he had normal calcium levels. labs 03/08/24 showed calcium of 11.2 with albumin of 4.3, PTH 141, vitamin D 37, normal kidney function.. Given normal kidney function, appropriate vitamin-D levels, with high calcium levels, all consistent with most likely differential primary hyperparathyroidism. 03/19/24 : labs showed total calcium improved to 10.1 with albumin of 4.2, corrected calcium would be 9.9, ionized calcium mildly elevated at 5.8, PTH elevated at 155.7, normal kidney function, vitamin-D level of 33.3, 24 hour urine calcium of 166 with calcium creatinine ratio of 103, fractional excretion of calcium 0.009. Feca : 0.009 03/19/24 could not rule out FHH. However I feel that calcium excretion in the urine is low likely due to poor calcium intake. His bone density scan from 04/22/2024 was also normal including the forearm. So far his only criteria for surgery that he has met as his degree of hypercalcemia with calcium of 11.2, however recently calcium levels have improved after stopping the hydrochlorothiazide on 03/15/2024. His most recent blood work from 07/28/2023 showed calcium levels have improved down to 10.4, with corrected calcium of 10.1. Phosphorus still mildly low. Vitamin-D was low at at 26. I put him on vitamin-D intake to 2000 units daily as low vitamin-D levels can further worsen PTH elevation. He was asked to maintain good calcium intake in diet and repeat 24 hour urine labs, which from July still showed low fractional excretion of calcium, FHH can not be ruled out, however no hypercalciuria. Renal ultrasound did not show any nephrolithiasis however did show a mildly complex left kidney cyst. I last visit messaged Urology since he is already established with them to follow up on this as well as told him to discuss with his primary care further follow up is needed for this. 12/13/2024: Calcium 10.4, albumin 4.7, corrected calcium would be 9.7, ionized calcium elevated at 5.8, phosphorus normal at 2.9, EGFR greater than 60 with creatinine of 0.93, vitamin-D 37.1, PTH 207.2 Labs repeated in January 2025 with a calcium of 10.6, albumin of 4.5, corrected calcium would be 10. At this point his calcium levels are much better given that he has been off the hydrochlorothiazide, does not have hypercalciuria, does not meet surgical cr iteria we will continue to monitor. He was restarted back on hydrochlorothiazide 12.5 mg daily in December 2024 by his hydraulic strainer operator for uncontrolled hypertension. I discussed with the him that hydro chlorothiazide can worsen hypercalcemia, so even though the underlying etiologies hyperparathyroidism, patients who are at risk of hypercalcemia such as patients with primary hyperparathyroidism, hydrochlorothiazide is not an ideal agent for controlling blood pressure as it can worsen hypercalcemia. For now his calcium levels are within acceptable range, but I did discuss with the him to discuss with hydraulic strainer operator to use other agents for blood pressure other than hydrochlorothiazide. I will also forward my notes to his hydraulic strainer operator. Plan: -ordered calcium, albumin, creatinine, phosphorus, vitamin-D, PTH levels to be done at [facility] a week or 2 prior to follow up in 6-8 months -would recommend coming off the hydrochlorothiazide after discussion with hydraulic strainer operator. And use other agents for blood pressure. He should continue to remain off hydrochlorothiazide. His most recent blood pressure log does show some elevated blood pressures in the 150s to 1-60 systolic and 80s to 90s diastolic. I have asked him to ask his primary care physician to add another blood pressure medication to his regimen apart from hydrochlorothiazide. -vitamin-D to 2000 units daily -continue to incorporate 2-3 servings of calcium rich foods daily -follow up in 6 to 8 months with blood work prior to appointment (2) Hyperparathyroidism: Code(s): E21.3 - Hyperparathyroidism, unspecified Category: Medical Plan: see above Plan See above Orders: Orders Albumin Level 07/18/25 Autumn Patel MD E21.3 - Hyperparathyroidism, unspecified, E83.52 - Hypercalcemia Calcium 07/18/25 Autumn Patel MD E21.3 - Hyperparathyroidism, unspecified, E83.52 - Hypercalcemia Phosphorus 07/18/25 Autumn Patel MD E21.3 - Hyperparathyroidism, unspecified, E83.52 - Hypercalcemia Parathyroid Hormone Intact 07/18/25 Autumn Patel MD E21.3 - Hyperparathyroidism, unspecified, E83.52 - Hypercalcemia Vitamin D 25-OH Total 07/18/25 Autumn Patel MD E21.3 - Hyperparathyroidism, unspecified, E83.52 - Hypercalcemia Calcium, Ionized 07/18/25 Autumn Patel MD E21.3 - Hyperparathyroidism, unspecified, E83.52 - Hypercalcemia Creatinine 07/18/25 Autumn Patel MD E21.3 - Hyperparathyroidism, unspecified, E83.52 - Hypercalcemia Medications: Changed From methotrexate sodium 20 mg (8 x 2.5 mg) PO QWEEK 90 days 104 tabs 1RF M06.9 - Rheumatoid arthritis, unspecified To methotrexate sodium 12.5 mg PO QWEEK M06.9 - Rheumatoid arthritis, unspecified Cher Tellez MD Coding Level of Care Code Est Pt Level 3 (35011) Diagnoses Hypercalcemia E83.52 Hyperparathyroidism E21.3
--- OUTSIDE RECORDS SUMMARY | 2025-01-28 10:42 | XMS_ITS | Clinical Summary ---
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
--- OUTSIDE RECORDS SUMMARY | 2025-01-28 10:42 | XMS_ITS | Clinical Summary ---
Author Organization [facility] Address [address] [place] [address] Phone Care Team Providers Care Healthcare Management Name Role Phone Physician, Pcp Unknown Primary [...] 09/21/2024 8:46 AM [facility] Potassium 3.9 3.5 - 5.5 mmol/L LAB CHEMISTRY METHOD 09/21/2024 8:46 AM [facility] Chloride 106 96 - [...] LAB CHEMISTRY METHOD 09/21/2024 8:46 AM EDT [facility] Alkaline Phosphatase 107 42 - 121 unit/L LAB CHEMISTRY METHOD 09/21/2024 8:46 AM EDT [facility] Total Protein 8.3(H) 6.0 - 8.0 g/dL LAB CHEMISTRY METHOD 09/21/2024 8:46 AM EDT [facility] Albumin 4.6 3.2 - 5.0 g/dL LAB CHEMISTRY METHOD 09/21/2024 8:46 AM EDT [facility] Total Bilirubin 0.4 0.0 - 1.4 mg/dL LAB CHEMISTRY METHOD 09/21/2024 8:46 AM T [facility] Blood Venous blood specimen / Unknown Venipuncture / Unknown 09/21/2024 7:48 AM EDT 09/21/2024 8:14 AM EDT us Lei Mario MD LAB BLOOD ORDERABLES Final Result [facility] [address] [place] [address], from Last 3 Months or Most Recently Relevant to Health Maintenance Insurance MEDICARE MEDICAID - [place] Care Teams Healthcare Management Relationship Specialty Start Date End Date Physician, Pcp Unknown PCP - General 09/21/24
--- OUTSIDE RECORDS SUMMARY | 2025-01-28 10:42 | XMS_ITS | Encounter Summary ---
Author Organization [employer] Address [address] [facility] [address] [place] [address] Care Team Providers Care Activities Coordinator Name Role Phone Estelle Cain GINI Primary Care Provider [phone] Citlali Tee PEDIATRIC AUDIOLOGIST Primary Care Provider [phone] Encounter Details Date Type Department Care Team (Late st Contact Info) Description 04/16/2023 Orders Only [facility] [address] [place] [address] Susan Pimentel LPN Social History Tobacco Use [...] FACTOR Routine 10/24/2023 11: 19 AM EDT [id number] G ENZYME Routine 10/24/2023 11:19 AM EDT [...] IMMUNOGLOBULIN G 1340 600 - 1540 mg/dL [facility] IMMUNOGLOBULIN A 233 70 - 320 mg/dL [facility] Immunoglobulin M 84 50 - 300 mg/dL [facility] Comment:THIS TEST WAS PERFOR MED AT:[employer] [place] [phone] BLANCHARD MD Immunofixation Result SEE NOTE [facility] Comment:Normal pattern. No m onoclonal proteins detected. 10/24/2023 11:1 9 AM EDT 10/24/2023 11:19 AM EDT us Generic External Data Provider LAB BLOOD ORDERAB LES Final Result [facility] [address] [place] [phone] * (ABNORMAL) Angiotensin -1- Converting Enzyme (10/24/2023 11:19 AM EDT) Pathologist [facility] Angiotensin Converting Enzyme 70(A) 9 - 67 U/L [facility] Comment:THIS TEST WAS PERFOR MED AT:[id number] [place] [address]FRDJOMRTYLER DU MD,PHD 10/24/2023 11:1 9 AM EDT 10/24/2023 11:19 AM EDT us Generic External Data Provider LAB BLOOD ORDERAB LES Final Result [facility] [address] [place] [phone] * (ABNORMAL) Protein Electrophoresis and [place]/[employer] (10/24/2023 11:19 AM EDT) Pathologist [facility] Prot Elec - Total Protein 8.2(A) 6.1 - 8.1 g/dL [facility] Prot Elec - Albumin 4.7 3.8 - 4.8 g/dL [facility] Prot Elec - Alpha1 0.3 0.2 - 0.3 g/dL [facility] Prot Elec - Alpha2 0.8 0.5 - 0.9 g/dL [facility] Prot Elec - Beta 1 0.6 0.4 - 0.6 g/dL [facility] Prot Elec - Beta 2 0.3 0.2 - 0.5 g/dL [facility] Prot Elec - Gamma 1.5 0.8 - 1.7 g/dL [facility] PES - Abn Protein Band 1 [facility] PES-Abn Protein Band 2 [facility] PES-Abn Protein Band 3 [facility] Prot Elec - Interpretation SEE NOTE [facility] Comment:Normal Serum Protein Electrophoresis Pattern.No abnormal protein bands (M-protein) detected.THIS TEST WAS PERFORMED AT:[employer] [place] [phone] BLANCHARD MD 10/24/2023 11:1 9 AM EDT 10/24/2023 11:19 AM EDT us Generic External Data Provider LAB BLOOD ORDERAB LES Final Result [facility] [address] [place] [phone] * SHERYL Screen,IFA, with Reflex to Titer and Pattern (10/24/2023 11:19 AM EDT) Anti Nuclear Antibody Screen NEGATIVE NEGATIVE [facility] Comment:SHERYL IFA is a first l [...] clinicallysuspected inflammatory myopathies.AC-0: NegativeInternational Consensus on SHERYL Patterns(https://doi.org/10.1515/kbgd-6371-9034)For additional information, please refer tohttp://education.Heart Genetics/faq/SZJ849(This link is being provided for informational/educational purposes only.)THIS TEST WAS PERFORMED AT:[employer] [place] [phone] BLANCHARD MD SHERYL Titer TNP [facility] SHERYL Pattern TNP [facility] SHERYL TITER 2 (REF LAB) TNP [facility] SHERYL Pattern 2 TNP [facility]ERYL TITER 3 [facility] SHERYL PATTERN 3 [facility] 10/24/2023 11:1 9 AM EDT 10/24/2023 11:19 AM EDT Generic External Data Provider LAB BLOOD ORDERAB LES Final Result Performing Organization Address [facility] Co de Phone Number [facility] [address] [place] [phone] * Cyclic Citrullinated Peptide (CCP) Antibody (IgG) (10/24/2023 11:19 AM EDT) Pathologist [facility] Cyclic Citrullinated Peptide <16 UNITS [facility] Comment:Reference RangeNegat travis: <20Weak Positive: 20-39Moderate Positive: 40-59Strong Positive: >59THIS TEST WAS PERFORMED AT:[employer] [place] [phone] BLANCHARD MD 10/24/2023 11:1 9 AM EDT 10/24/2023 11:19 AM EDT Generic External Data Provider LAB BLOOD ORDERAB LES Final Result Performing Organization Address [facility] de Phone Number [facility] [address] [place] [phone] * HIV-1/2 Antigen and Antibodies, Fourth Generation, with Reflexes (10/24/2023 11:19 AM EDT) [facility] HIV AB/AG Nonreactive Nonreactive [facility] Comment:HIV-1 p24 Ag and/or HIV-1/HIV-2 Ab not detected.A test result that is nonreactive does not exclude thepossibility of exposure to or infection with HIV-1 and/orHIV-2. Nonreactive results in this assay for individualswith prior exposure to HIV-1 and/or HIV-2 may be due toantigen and antibody levels that are below the limit ofdetection of this assay.The [employer] HIV Ag/Ab Combo assay result andsupplemental assay results should be interpreted inconjunction with the patient's clinical presentation,history and other laboratory results. If the results areinconsistent with clinical evidence, additional testing issuggested to confirm the result. 10/24/2023 11:1 9 AM EDT 10/24/2023 11:19 AM EDT Generic External Data Provider LAB BLOOD ORDERAB LES Final Result Performing Organization Address [facility] Co de Phone Number [facility] [address] [place] [phone] * Hepatitis Panel, General (10/24/2023 11:19 AM EDT) Pathologist [facility] Hepatitis A IgM Nonreactive Nonreactive [facility] Comment:IgM antibodies to PITTS V not detected; does not exclude earlyacute or recovered HAV infection. ~Hepatitis B Surface Antibody REACTIVE Nonreactive [facility] Comment:REACTIVE: > 11.99 mI U/mL Hepatitis B Core Antibody Reactive Nonreactive [facility] Comment:Presumptive evidence of anti-HBc. Hepatitis C Antibody Nonreactive Nonreactive [facility] Comment:Antibodies to HCV no t detected; does not exclude early acuteHCV infection. Hepatitis B Surface Ag Negative Negative [facility] 10/24/2023 11:1 9 AM EDT 10/24/2023 11:19 AM EDT [employer] External Data Provider LAB BLOOD ORDERAB LES Final Result Performing Organization Address [facility] de Phone Number [facility] [address] [place] [phone] * T-SPOT??.TB (10/24/2023 11:19 AM EDT) Pathologist [facility] T Spot TB Negative Negative [facility] Comment:A negative test resu lt does [...] as aquantitative test. TS PANEL A 0 [facility] TS PANEL B 0 [facility] Negative Control Passed [facility] Positive Control Passed [facility] Comment:For additional infor matumair, please refer tohttp://education.Soft Science/faq/FKY139(This link is being provided for informational/educational purposes only.)THIS TEST WAS PERFORMED AT:[employer] [id number] [place] [address]SJJRSKZTYLER DU MD,PHD 10/24/2023 11:1 9 AM EDT 10/24/2023 11:19 AM EDT us Generic External Data Provider LAB BLOOD ORDERAB LES Final Result Performing Organization Address City/[facility]/ZIP Co de Phone Number [facility] [address] [place] [phone] * Sed Rate by Modified Vikergren (10/24/2023 11:19 AM EDT) Erythrocyte Sedimentation Rate 7 0 - 15 MM/HR [facility] Comment:Patients with polycy themia and many hemoglobin abnormalitiesmay have depressed sed rates whereas patients with anemiamay have elevated sed rates. 10/24/2023 11:1 9 AM EDT 10/24/2023 11:19 AM EDT us Generic External Data Provider LAB BLOOD ORDERAB LES Final Result Performing Organization Address [facility]/ZIP Co de Phone Number [facility] [address] [place] [phone] * C-reactive Protein (10/24/2023 11:19 AM EDT) C Reactive Protein 0.16 < or = 0.50 mg/dL [facility] 10/24/2023 11:1 9 AM EDT 10/24/2023 11:19 AM EDT us Generic External Data Provider LAB BLOOD ORDERAB LES Final Result [facility] [address] [place] [phone] * (ABNORMAL) Comprehensive Metabolic Panel (10/24/2023 11:19 AM EDT) Sodium 140 135 - 145 mmol/L [facility] Potassium 3.7 3.3 - 5.1 mmol/L [facility] Chloride 107 96 - 108 mmol/L [facility] Carbon Dioxide 28 22 - 29 mmol/L [facility] Anion Gap 9(L) 12 - 20 [facility] Urea Nitrogen (BUN) 18(H) 9 - 16 mg/dL [facility] Creatinine, Serum 0.99 0.5 - 1.4 mg/dL [facility] Estimated Glomerular Filt Rate >60 [facility] Comment:NOTE: For -Am erican individuals, multiply the result by 1.210.Chronic Kidney Disease: Estimated GFR < 60 mL/min/1.34u5Qkgtng Kidney Disease: Estimated GFR < 15 mL/min/1.73m2 Glucose 105 60 - 115 mg/dL [facility] Calcium 11.3(H) 8.4 - 10.2 mg/dL [facility] Bilirubin, Total 0.5 0.0 - 1.0 mg/dL [facility] Aspartate Amino Transferase 28 5 - 37 U/L [facility] Alanine Aminotransferase 22 0 - 40 U/L [facility] Total Protein 7.8 6.5 - 8.0 g/dL [facility] Albumin Level 4.5 3.5 - 5.0 g/dL [facility] Alkaline Phosphatase 74 39 - 117 U/L [facility] 10/24/2023 11:1 9 AM EDT 10/24/2023 11:19 AM EDT us Generic External Data Provider LAB BLOOD ORDERAB LES Final Result Performing Organization Address [facility] Co de Phone Number [facility] [address] [place] [phone] * Rheumatoid Factor (10/24/2023 11:19 AM EDT) Rheumatoid Factor <13.0 <15.0 IU/mL [facility] 10/24/2023 11:1 9 AM EDT 10/24/2023 11:19 AM EDT us Generic External Data Provider LAB BLOOD ORDERAB LES Final Result Performing Organization Address [facility] Co me Phone Number [facility] [address] [place] [phone] * Hemoglobin A1c (10/24/2023 11:19 AM EDT) Hemoglobin A1c 5.5 <6.0 % [facility] Comment:Hemoglobin A1C Refer ence Range Adults: 4.8 - 6.0 % Non diabetic: < 6.0 % Goal: < 7.0 %Additional Action Suggested: > 8.0 %Note: Hemoglobin A1c results are invalid for patients with abnormal amounts of HbF. Blood transfusions may impact the HbA1c concentration in the patient sample. Estimated Average Glucose 111 mg/dL [facility] Comment:eAG = Estimated ave rage glucose which is %A1C expressed asaverage glucose, using the formula of the [id number] Glucose study (ADAG), Diabetes Care, Vol.31,#8,Dec. 2007 10/24/2023 11:1 9 AM EDT 10/24/2023 11:19 AM EDT us Generic External Data Provider LAB BLOOD ORDERAB LES Final Result Performing Organization Address [facility]/ZIP Co de Phone Number [facility] [address] [place] [phone] * (ABNORMAL) CBC auto differential (10/24/2023 11:19 AM EDT) White Blood Count 4.4(L) 4.8 - 10.8 X10*3/uL [facility] Red Blood Count 4.15(L) 4.60 - 5.80 X10*6/uL [facility] Hemoglobin 12.4(L) 14.0 - 18.0 g/dl [facility] Hematocrit 37.7(L) 42.0 - 52.0 % [facility] Mean Corpuscular Volume 90.8 80.0 - 98.0 fL [facility] Mean Corpuscular Hemoglobin 29.9 27.0 - 33.0 pg [facility] Mean Corpuscular HGB Conc 32.9 31.0 - 36.0 g/dl [facility] Red Cell Distribution Width 12.7 11.0 - 16.0 % [facility] Platelet Count 277 160 - 400 X10*3/uL [facility] Mean Platelet Volume 10.3 9.4 - 12.4 fL [facility] Neutrophils Percent Auto 50.4 45 - 73 % [facility] Imm Gran Pct Auto 0.5(H) 0.0 - 0.4 % [facility] Lymphocytes Percent Auto 33.9 20 - 40 % [facility] Monocytes Percent Auto 10.0 2 - 11 % [facility] Eosinophils Percent Auto 4.3(H) 0 - 4 % [facility] Basophils Percent Auto 0.9 0 - 2 % [facility] NRBC Pct Auto 0.0 0.0 - 0.2 /100WBC [facility] Neutrophils Absolute Auto 2.2 2.0 - 8.3 x10*3/uL [facility] Imm Gran Abs Auto 0.02 0.00 - 0.03 X10*3/uL [facility] Lymphocytes Absolute Auto 1.5 1.2 - 4.9 X10*3/uL [facility] Monocytes Absolute Auto 0.4 0.1 - 1.2 X10*3/uL [facility] Eosinophils Absolute Auto 0.2 0.0 - 0.4 X10*3/uL [facility] Basophils Absolute Auto 0.0 0.0 - 0.2 X10*3/uL [facility] NRBC Abs Auto 0.000 0.0 - 0.012 X10*3/uL [facility] 10/24/2023 11:1 9 AM EDT 10/24/2023 11:19 AM EDT us Generic External Data Provider LAB BLOOD ORDERAB LES Final Result Performing Organization Address City/State/[facility] Co de Phone Number [facility] [address] [place] [phone] documented in this encounter Visit Diagnoses Not on filedocumented in this encounter Care Teams Activities Coordinator Relationship Specialty Start Date End Date Estelle Cain ANP [address] [place] [address] PCP - General Family Medicine 12/26/21 07/13/23 Citlali Tee NP [address] [place] [address] PCP - General Family Medicine 07/14/23 documented as of this encounter
--- OUTSIDE RECORDS SUMMARY | 2025-01-28 10:42 | XMS_ITS | Clinical Summary ---
Author Organization [employer] Address [address] [facility] 7t [place] [address] Care Team Providers Care School Transportation Supervisor Name Role Phone Citlali Tee JANE Primary Care Provider [phone] Allergies Active Allergy Reactions Criticality Noted Date [...] DEPARTMENT Provider, Generic External Data 12/06/2024 Refill [facility] [address] [place] [address] Citlali Tee NP Other hyperlipidemia 11/01/2024 Orders Only [facility] External Provider, [facility] from Last 3 Months Immunizations Immunization Administration [...] B, C Profile (01/14/2025 12:20 PM EDT) [facility] ~Hepatitis B Surface Antibody REACTIVE Nonreactive [facility] Comment:REACTIVE: > 11.99 mI U/mL Hepatitis B Core Antibody Reactive Nonreactive [facility] Comment:Presumptive evidence of anti-HBc. Hepatitis C Antibody Nonreactive Nonreactive [facility] Comment:Antibodies to HCV no t detected; does not exclude early acuteHCV infection. Hepatitis B Surface Ag Negative Negative [facility] 01/14/2025 12:2 0 PM EDT 01/14/2025 12:20 PM EDT us Generic External Data Provider LAB BLOOD ORDERAB LES Final Result [facility] [address] [place] [phone] * (ABNORMAL) CBC auto differential (01/14/2025 12:20 PM EDT) [facility] White Blood Count 5.4 4.8 - 10.8 X10*3/uL [facility] Red Blood Count 4.03(L) 4.60 - 5.80 X10*6/uL [facility] Hemoglobin 12.3(L) 14.0 - 18.0 g/dl [facility] Hematocrit 37.4(L) 42.0 - 52.0 % [facility] Mean Corpuscular Volume 92.8 80.0 - 98.0 fL [facility] Mean Corpuscular Hemoglobin 30.5 27.0 - 33.0 pg [facility] Mean Corpuscular HGB Conc 32.9 31.0 - 36.0 g/dl [facility] Red Cell Distribution Width 13.5 11.0 - 16.0 % [facility] Platelet Count 257 160 - 400 X10*3/uL [facility] Mean Platelet Volume 10.4 9.4 - 12.4 fL [facility] Neutrophils Percent Auto 62.1 45 - 73 % [facility] Imm Gran Pct Auto 0.6(H) 0.0 - 0.4 % [facility] Lymphocytes Percent Auto 24.8 20 - 40 % [facility] Monocytes Percent Auto 8.6 2 - 11 % [facility] Eosinophils Percent Auto 3.3 0 - 4 % [facility] Basophils Percent Auto 0.6 0 - 2 % [facility] NRBC Pct Auto 0.0 0.0 - 0.2 /100WBC [facility] Neutrophils Absolute Auto 3.4 2.0 - 8.3 x10*3/uL [facility] Imm Gran Abs Auto 0.03 0.00 - 0.03 X10*3/uL [facility] Lymphocytes Absolute Auto 1.4 1.2 - 4.9 X10*3/uL [facility] Monocytes Absolute Auto 0.5 0.1 - 1.2 X10*3/uL [facility] Eosinophils Absolute Auto 0.2 0.0 - 0.4 X10*3/uL [facility] Basophils Absolute Auto 0.0 0.0 - 0.2 X10*3/uL [facility] NRBC Abs Auto 0.000 0.0 - 0.012 X10*3/uL [facility] 01/14/2025 12:2 0 PM EDT 01/14/2025 12:20 PM EDT Generic External Data Provider LAB BLOOD ORDERAB LES Final Result Performing Organization Address [facility] de Phone Number [facility] [address] [place] [phone] * Sed Rate by Modified Vikergren (01/14/2025 12:20 PM EDT) Pathologist [facility] Erythrocyte Sedimentation Rate 7 0 - 15 MM/HR [facility] Comment:Patients with polycy themia and many hemoglobin abnormalitiesmay have depressed sed rates whereas patients with anemiamay have elevated sed rates. 01/14/2025 12:2 0 PM EDT 01/14/2025 12:20 PM EDT Generic External Data Provider LAB BLOOD ORDERAB LES Final Result Performing Organization Address [facility] de Phone Number [facility] [address] [place] [phone] * C-reactive Protein (01/14/2025 12:20 PM EDT) [facility] C Reactive Protein 0.16 < or = 0.50 mg/dL [facility] 01/14/2025 12:2 0 PM EDT 01/14/2025 12:20 PM EDT Generic External Data Provider LAB BLOOD ORDERAB LES Final Result Performing Organization Address [facility] de Phone Number [facility] [address] [place] [phone] * (ABNORMAL) Comprehensive Metabolic Panel (01/14/2025 12:20 PM EDT) Pathologist [facility] Sodium 141 135 - 145 mmol/L [facility] Potassium 3.6 3.3 - 5.1 mmol/L [facility] Chloride 107 96 - 108 mmol/L [facility] Carbon Dioxide 26 22 - 29 mmol/L [facility] Anion Gap 12 12 - 20 [facility] Urea Nitrogen (BUN) 23(H) 9 - 16 mg/dL [facility] Creatinine, Serum 1.09 0.5 - 1.4 mg/dL [facility] Estimated Glomerular Filt Rate >60 [facility] Comment:Chronic Kidney Disea se: Estimated GFR < 60 mL/min/1.34v6Ohhqxw Kidney Disease: Estimated GFR < 15 mL/min/1.73m2 Glucose 147(H) 60 - 115 mg/dL [facility] Calcium 10.6(H) 8.4 - 10.2 mg/dL [facility] Bilirubin, Total 0.3 0.0 - 1.0 mg/dL [facility] Aspartate Amino Transferase 23 5 - 37 U/L [facility] Alanine Aminotransferase 28 0 - 40 U/L [facility] Total Protein 7.6 6.5 - 8.0 g/dL [facility] Albumin Level 4.5 3.5 - 5.0 g/dL [facility] Alkaline Phosphatase 95 39 - 117 U/L [facility] 01/14/2025 12:2 0 PM EDT 01/14/2025 12:20 PM EDT us Generic External Data Provider LAB BLOOD ORDERAB LES Final Result [facility] [address] [place], [place] [phone] * (ABNORMAL) Basic Metabolic Panel (01/07/2025 9:33 AM EDT) Only the most recent of2 resultswithin the time period is included. Sodium 141 135 - 145 mmol/L [facility] Potassium 3.7 3.3 - 5.1 mmol/L [facility] Chloride 107 96 - 108 mmol/L [facility] Carbon Dioxide 27 22 - 29 mmol/L [facility] Anion Gap 11(L) 12 - 20 [facility] Urea Nitrogen (BUN) 17(H) 9 - 16 mg/dL [facility] Creatinine, Serum 0.96 0.5 - 1.4 mg/dL [facility] Estimated Glomerular Filt Rate >60 [facility] Comment:Chronic Kidney Disea se: Estimated GFR < 60 mL/min/1.71c7Kmksyw Kidney Disease: Estimated GFR < 15 mL/min/1.73m2 Glucose 106 60 - 115 mg/dL [facility] Calcium 10.5(H) 8.4 - 10.2 mg/dL [facility] 01/07/2025 9:33 AM EDT 01/07/2025 9:33 AM EDT us Generic External Data Provider LAB BLOOD ORDERAB LES Final Result Performing Organization Address City/State/[facility] Co de Phone Number [facility] [address] [place] [address] [phone] * CT Abdomen Pelvis w/ and w/o Contrast (11/01/2024 10:41 AM EDT) Anatomical Region Laterality Modality Body, Pelvis, Abdomen Computed T omography 11/01/2024 10:4 1 AM EDT Narrative 11/01/2024 12:40 PM EDT [place] [address] CT Scan Report Signed Patient: Ag Gill MR#: [id number] : 1960 Acct:[id number] Age/Sex: 64 / M ADM Date: 11/01/24 Loc: HO.CT Attending Dr: Azeb ANTONIO Ordering Physician: Azeb García Date of Service: 11/01/24 Procedure(s): CT abdomen pelvis wo/w IV con Accession Number(s): [id number] cc: Citlali Tee NP; [facility] Report Number: [id number]: Total DLP = 892.00 mGy-cm EXAMINATION: CT [...] 11/01/24 1238 DD/ 1041 TD/TT: 11/01/24 1144 Director Of Extension Work: Procedure Note Donotuseinterpreter, Image - 11/01/[address] [place] [address] [address] Scan Report Signed Patient: Ag Gill HMR#: [id number] : 9Acct:[id number] Age/Sex: 64 / MADM Date: 11/01/24 Loc: HO.CT Attending Dr: Azeb VICTROIA Ordering Physician: Azeb García Date of Service: 11/01/24 Procedure(s): CT abdomen pelvis wo/w IV con Accession Number(s): [id number] cc: Citlali Tee NP; Azeb García Report Number: [id number]: Total DLP = 892.00 mGy-cm EXAMINATION: CT [...] 11/01/24 1238 DD/ 1041 TD/TT: 11/01/24 1144 Director Of Extension Work: [facility] External Provider IMG CT PROCEDURES Final Result * Hemoglobin A1c (03/08/2024 9:40 AM EST) Hemoglobin A1c 5.7 <6.0 % [facility] Comment:Hemoglobin A1C Refer ence Range Adults: 4.8 - 6.0 % Non diabetic: < 6.0 % Goal: < 7.0 %Additional Action Suggested: > 8.0 %Note: Hemoglobin A1c results are invalid for patients with abnormal amounts of HbF. Blood transfusions may impact the HbA1c concentration in the patient sample. Estimated Average Glucose 117 mg/dL [facility] Comment:eAG = Estimated ave rage glucose which is %A1C expressed asaverage glucose, using the formula of the N7Z-PciusxgUbdhzdo Glucose study (ADAG), Diabetes Care, Vol.31,#8,Dec. 2007 Blood Venous blood specimen / Unknown 03/08/2024 9:40 AM EST 03/08/2024 11:04 AM EST us Citlali Tee NP LAB BLOOD ORDERABLES Final Resul t Performing Organization Address [facility] Co de Phone Number [facility] [address] [place] [phone] * Lipid Panel, Standard (07/14/2023 10:50 AM EDT) Triglycerides 100 <150 mg/dL [facility] Comment:Desirable Triglyceri de: less than 150 mg/dLBorderline High Triglyceride 150-199 mg/dLHigh Triglyceride: 200-499 mg/dLVery High Triglyceride: greater than or equal to 5OO mg/dL Cholesterol 137 <200 mg/dL [facility] Comment:Desirable Cholestero l: less than 200 mg/dLBorderline High Cholesterol: 200-239 mg/dLHigh Cholesterol: greater than 239 mg/dL LDL Cholesterol Calculated 74 <100 mg/dL [facility] Comment:Desirable LDL: less than 100 mg/dLNear Optimal/Above Optimal LDL: 110- 129 mg/dLBorderline High LDL: 130-159 mg/dLHigh LDL: 160-189 mg/dLVery High LDL: greater than or equal to 190 mg/dL HDL Cholesterol 43 >40 mg/dL [facility] Comment:Desirable HDL: great er than 40 mg/dL Note: This HDL assay may give artificially low results in patients with liver disease. Blood Venous blood specimen / Unknown 07/14/2023 10:50 AM EDT 07/14/2023 1:02 PM EDT us Saba Hatfield MD LAB BLOOD ORDERABLES Final Result Performing Organization Address City/[facility]/ZIP Co de Phone Number [facility] [address] [place] [phone] * Hm Colonoscopy (05/02/2022) Colonoscopy Normal Normal us Shawanda Feldman NP HEALTH MAINTENANCE Edited Resul t - Final from Last 3 Months or Most Recently Relevant to Health Maintenance Insurance [facility] , [address] [address] [facility] [place] [phone] Care Teams School Transportation Supervisor Relationship Specialty Start Date End Date Citlali Tee NP [address] [place] [address] PCP - General Family Medicine 07/14/23
--- OUTSIDE RECORDS SUMMARY | 2025-01-28 10:42 | XMS_ITS | Encounter Summary ---
Author Organization [employer] Address [address] [facility] [address] [place] [address] Care Team Providers Care Patternmaker Hand Name Role Phone Citlali Tee JANE Primary Care Provider [phone] Reason for Visit * Reason Comments Med Refill Encounter Details Date Type Department Care Team (Late st Contact Info) Description 08/08/2023 Refill [facility] [address] [place], [place] [phone] Estelle Cain ANP [address] [place], [place] [phone] Essential hypertension; Primary hypertension Social History Tobacco [...] documented as of this encounter Care Teams Patternmaker Hand Relationship Specialty Start Date End Date Citlali Tee NP [address] [place] [address] PCP - General Family Medicine 07/14/23 documented as of this encounter
--- OUTSIDE RECORDS SUMMARY | 2025-01-28 10:42 | XMS_ITS | Clinical Summary ---
Author Organization [facility] Address [address] [place] [address] Care Team Providers Care Story Reader Name Role Phone Americo Hu PA-C Primary Care Provider [phone] Source Comments PLEASE NOTE, if this patient [...] pressure) 02/13/2016 Rheumatoid arthritis involving both hands ([facility]) 02/01/2016 Resolved Problems Problem Noted Date Diagnosed [...] exists Depression Annual Screen 05/05/2024 05/27/2019, 04/05 [id number] ( season) 2025 07/17/2021, 09/25/2020, 09/04/2020 Imm-Influenza [...] ANTIBODIES (06/03/2019 9:45 AM EST) Pathologist [facility] HIV 1 AND 2 ANTIBODY SCREEN NEGATIVE NEGATIVE [facility] Comment: This assay is a [...] 9:45 AM EST 06/03/2019 9:46 AM EST [facility] - 06/03/2019 12:50 PM EST [employer], [place] [address] [employer] - Dhara Flores MD PT ID [id number] ORD# [id number] Mercedes RAMIREZ LAB - BLOOD DRAW Final Resu lt Performing Organization Address [facility] [place] [address], * HEMOGLOBIN, GLYCOSYLATED (A1C) (06/03/2019 9:45 AM EST) [facility] GLYCATED HEMOGLOBIN A1C 5.1 <6.5 % [facility] ESTIMATED AVERAGE GLUCOSE 100 mg/dL [facility] Blood specimen (specimen) Blood / Unknown 06/03/2019 9:45 AM EST 06/03/2019 9:46 AM EST [facility] - 06/03/2019 12:31 PM EST [employer], a member of [address] [address] [employer] - Dhara Flores MD PT ID [id number] ORD# [id number] Mercedes RAMIREZ LAB - BLOOD DRAW Final Resu lt Performing Organization Address City/[facility] [place] [address], * (ABNORMAL) LIPID PANEL (06/03/2019 9:44 AM EST) CHOLESTEROL 187 0 - 200 mg/dL [facility] TRIGLYCERIDES 73 0 - 150 mg/dL [facility] HDL CHOLESTEROL 58 >40 mg/dL [facility] LDL CALCULATED 115(H) 0 - 100 mg/dL [facility] TC-HDLC RATIO 3.2 0 - 4.4 mg/dL [facility] Blood specimen (specimen) Blood / Unknown 06/03/2019 9:44 AM EST 06/03/2019 9:46 AM EST Narrative [facility] - 06/03/2019 12:01 PM EST [employer], [place] [address] [employer] - Dhara Flores MD PT ID [id number] ORD# [id number] Mercedes Broderick [facility] LAB - BLOOD DRAW Final Resu lt Performing Organization Address City/State/[facility] [place] [address], * (ABNORMAL) hepatitis ABC panel future (04/30/2018 9:50 AM EST) HEPATITIS B SURFACE ANTIBODY POSITIVE(A) NEGATIVE [facility] HEPATITIS B SURFACE ANTIGEN NEGATIVE NEGATIVE [facility] Comment: Over the counter supplements containing high doses of biotin may interfere with this assay. If interference is suspected, patients shoud be retested after refraining from biotin supplements for 72 hours. HEPATITIS C VIRUS DIAGNOSTIC NEGATIVE NEGATIVE [facility] HEPATITIS A ANTIBODY TOTAL POSITIVE(A) NEGATIVE [facility] Comment: Over the counter supplements containing high doses of biotin may interfere with this assay. If interference is suspected, patients shoud be retested after refraining from biotin supplements for 72 hours. HEPATITIS B CORE ANTIBODY POSITIVE(A) NEGATIVE [facility] Blood specimen (specimen) Blood / Unknown 04/30/2018 9:50 AM EST 04/30/2018 11:36 AM EST Narrative [facility] - 04/30/2018 7:16 PM EST [employer], a member of [address] [address] [employer] - Janell Pollack MD PT ID [id number] ORD# [id number] Clinton Hanson MD LAB - BLOOD DRAW Edited Result - Final [facility] [address], from Last 3 Months or Most Recently Relevant to Health Maintenance Insurance [facility] ([facility]) Member Subscriber Plan / Payer (Ef fective 2019-Present) Name:Ag Gill Relation to Subscriber:Self Name:Ag Gill Payer ID:[id number] Group ID:Not on file Type:[employer] Address: [address] [place] [phone] [place] [address] [place] DENTAL Care Teams Story Reader Relationship Specialty Start Date End Date Americo Hu PA-C [address] [place] [phone] [facility] - General 10/12/21
--- OUTSIDE RECORDS SUMMARY | 2025-01-28 10:42 | XMS_ITS | Encounter Summary ---
Author Organization [employer] Address [address] [facility] [address]t [place] [address] Care Team Providers Care History Card Clerk Name Role Phone Citlali Tee JANE Primary Care Provider [phone] Encounter Details Date Type Department Care Team (Late st Contact Info) Description 12/26/2023 Orders Only [facility] [address] [place] [address] Provider, MD Claude Social History Tobacco Use [...] documented as of this encounter Care Teams History Card Clerk Relationship Specialty Start Date End Date Citlali Tee NP [address] [place] [address] PCP - General Family Medicine 07/14/23 documented as of this encounter
--- OUTSIDE RECORDS SUMMARY | 2025-01-28 10:42 | XMS_ITS | Encounter Summary ---
Author Organization [employer] Address [address] [facility] [address]t [place] [address] Care Team Providers Care Beam Department Supervisor Name Role Phone Citlali Tee NP Primary Care Provider [phone] Reason for Visit * Reason Onset Date Comments Med Refill 09/06/2024 Encounter Details Date Type Department Care Team (Late st Contact Info) Description 09/06/2024 Refill [facility] [address] [place], [place] [phone] Sarah Mukherjee NP [address] [place], [place] [phone] Arthralgia of both hands Social History Tobacco [...] documented as of this encounter Care Teams Beam Department Supervisor Relationship Specialty Start Date End Date Citlali Tee NP [address] [place] [phone] PCP - General Family Medicine 07/14/23 documented as of this encounter
--- OUTSIDE RECORDS SUMMARY | 2025-01-28 10:42 | XMS_ITS | Encounter Summary ---
Author Organization [employer] Address [address] [facility] 7t [place] [address] Care Team Providers Care Disposal Worker Name Role Phone Citlali Tee JANE Primary Care Provider [phone] Reason for Visit * Reason Onset Date Comments Med Refill 09/06/2024 Encounter Details Date Type Department Care Team ([facility] st Contact Info) Description 09/06/2024 Refill [facility] [address] [place], [place] [phone] Name, MD Ayden [address] [place] [address] Other hyperlipidemia Social History Tobacco Use Types [...] documented as of this encounter Care Teams Disposal Worker Relationship Specialty Start Date End Date Citlali Tee NP [address] [place] [phone] PCP - General Family Medicine 07/14/23 documented as of this encounter
--- OUTSIDE RECORDS SUMMARY | 2025-01-28 10:42 | XMS_ITS | Encounter Summary ---
Author Organization [employer] Address [address] [facility] 7t [place] [address] Care Team Providers Care Order Processing Clerk Name Role Phone Citlali Tee NP Primary Care Provider [phone] Reason for Visit * Reason Comments Med Refill Encounter Details Date Type Department Care Team (Late st Contact Info) Description 05/23/2024 Refill [facility] [address] [place], [place] [phone] Citlali Tee NP [address] [place], [place] [phone] Essential hypertension; Primary hypertension; Other hyperlipidemia Social [...] documented as of this encounter Care Teams Order Processing Clerk Relationship Specialty Start Date End Date Citlali Tee NP [address] [place] [address] PCP - General Family Medicine 07/14/23 documented as of this encounter
== END 2025-01-28 10:06 | disposition home or self-care (01) ==
LOC: HO.ENCR 09:41
PROVIDERS: PCP Nurse Practitioner Family; Visit Provider Student in an Organized Health Care Education/Training Program
DX: E83.52 Hypercalcemia (principal)
CPT/HCPCS: 99213

== ENCOUNTER 2025-01-28 09:41 | Outpatient (REF) | payer MEDICARE, MEDICAID, SELFPAY ==
--- NOTE | ~2025-01-28 | XR_ITS ---
EXAMINATION: XR THORACIC SPINE CLINICAL INFORMATION: M06.9 - Rheumatoid arthritis, unspecified COMPARISON: None available. TECHNIQUE: AP and lateral views FINDINGS: Small marginal osteophyte formation at multiple is of the axial skeleton pronounced at C5-6 and C6-7 levels. No acute cortical disruption or gross malalignment. No lytic or blastic lesions. S-shaped curvature of the thoracic spine. XR/XR thoracic spine 3V IMPRESSION: Mild scoliosis versus positioning, thoracic spine. Multilevel spondylosis pronounced at C5-6 and C6-7 levels. Electronically signed by: Trevor Mckay MD 01/28/2025 11:11 AM EDT
--- NOTE | ~2025-01-28 | XR_ITS ---
EXAMINATION: XR SHOULDER, JOEL 3V CLINICAL INFORMATION: M06.9 - Rheumatoid arthritis, unspecified COMPARISON: 10/24/2023. TECHNIQUE: AP external rotation, Grashey, scapular Y, and axillary views of each shoulder. FINDINGS: RIGHT SHOULDER: Normal bone mineralization. No fracture, dislocation, or suspicious bone lesion. Normal alignment. The glenohumeral joint demonstrates mild arthritic changes. The AC joint demonstrates mild to moderate arthritic spurring. There is a type II acromion. No undersurface spurring. The subacromial space is preserved. Remainder of the soft tissue and bony structures appear normal. LEFT SHOULDER: Normal bone mineralization. No fracture, dislocation, or suspicious bone lesion. Normal alignment. The glenohumeral joint demonstrates mild arthritic changes. The AC joint demonstrates mild to moderate arthritic spurring. There is a type II acromion. No undersurface spurring. The subacromial space is preserved. Remainder of the soft tissue and bony structures appear normal. XR/XR Shoulder Joel min 2V IMPRESSION: 1. Bilateral shoulders demonstrating mild arthritic changes in the glenohumeral joints, and mild to moderate spurring of the bilateral AC joints. There has been little interval change from 10/24/2023. Electronically signed by: Zane Esqueda MD 01/28/2025 11:25 AM EDT
--- NOTE | ~2025-01-28 | XR_ITS ---
EXAMINATION: XR HAND/WRIST, RIGHT XR HAND/WRIST, LEFT CLINICAL INFORMATION: M06.9 - Rheumatoid arthritis, unspecified COMPARISON: 10/24/2023. TECHNIQUE: PA, lateral, and oblique views of each hand and wrist. FINDINGS: RIGHT HAND/WRIST: No fracture, dislocation, or suspicious bone lesion. There is normal alignment. There is no significant juxta-articular osteopenia. Degenerative appearing arthritis, moderate to severe, in the first CMC joint unchanged. Mild narrowing of the radiocarpal joint, unchanged. No blunting of the ulnar styloid. No definite carpal erosions identified. Minimal narrowing of the first and second MCP joints, without definite underlying MCP joint erosion. This is unchanged. Mild to moderate degenerative appearing arthritis throughout the DIP joints of the digits, and involving the interphalangeal joint of the thumb, stable in appearance. Very mild degenerative changes of the PIP joints of the digits. No gross periarticular erosions are identified in the digits. Normal-appearing soft tissues. LEFT HAND/WRIST: No fracture, dislocation, or suspicious bone lesion. There is normal alignment. There is no significant juxta-articular osteopenia. Similar appearing possible periarticular erosion of the second digit PIP joint. There may be subtle periarticular erosions in the third and fourth metacarpal heads. Degenerative appearing arthritis, moderate to severe, in the first CMC joint unchanged. Mild narrowing of the radiocarpal joint, unchanged. No blunting of the ulnar styloid. No definite carpal erosions identified. Minimal narrowing of the first and second MCP joints, without definite underlying MCP joint erosion. This is unchanged. Mild to moderate degenerative appearing arthritis throughout the DIP joints of the digits, and involving the interphalangeal joint of the thumb, stable in appearance. Very mild degenerative changes of the PIP joints of the digits. No gross periarticular erosions are identified in the digits. Normal-appearing soft tissues. XR/XR Wrist Joel min 3V IMPRESSION: 1. There are arthritic changes, predominantly degenerative in appearance, most severe in the first CMC joints as discussed. 2. Possible similar subtle periarticular erosion of the PIP joint of the second digit, right hand, as well as involving the third and fourth metacarpal heads. No definite additional periarticular erosions are evident bilaterally. There has been no significant interval change in the appearance of the hands and wrists when compared with the prior study. Electronically signed by: Zane Esqueda MD 01/28/2025 11:37 AM EDT
--- NOTE | ~2025-01-28 | XR_ITS ---
EXAMINATION: XR LUMBOSACRAL SPINE WITH OBLIQUES CLINICAL INFORMATION: M06.9 - Rheumatoid arthritis, unspecified COMPARISON: Correlated to CT abdomen pelvis dated November 01, 2024 TECHNIQUE: AP oblique and lateral views. . FINDINGS: S-shaped curvature of the lumbar spine. Bilateral facet joint hypertrophy at L4-5 and L5-S1. Multilevel endplate sclerosis. Decreased intervertebral disc height at L3-4, L4-5 and L5-S1 level. 6 mm anterolisthesis at L4-5. No spondylolysis pars interarticulares. No lytic or blastic lesions XR/XR lumbar spine 4V min IMPRESSION: Grade 1 anterolisthesis L4-5 on a degenerative basis. Multilevel lower lumbar spondylosis Electronically signed by: Trevor Mckay MD 01/28/2025 11:14 AM EDT
== END 2025-01-28 09:42 | disposition home or self-care (01) ==
LOC: HO.XRAY 09:41
PROVIDERS: Absent Provider Student in an Organized Health Care Education/Training Program; PCP Nurse Practitioner Family; Visit Provider Student in an Organized Health Care Education/Training Program
DX: E83.52 Hypercalcemia (principal); M06.9 Rheumatoid arthritis, unspecified; Z79.899 Other long term (current) drug therapy
CPT/HCPCS: 72072; 72110; 73030; 73110; 73130; 99212

== ENCOUNTER → 2025-01-28 10:17 | Outpatient (BNV) | payer MEDICARE, MEDICAID, SELFPAY | PROVIDERS: Absent Provider Student in an Organized Health Care Education/Training Program; PCP Nurse Practitioner Family; Visit Provider Radiology Diagnostic Radiology | DX: M06.09 Rheumatoid arthritis without rheumatoid factor, multiple sites (principal) | CPT/HCPCS: 73030; 73110; 73130 ==

== ENCOUNTER 2025-02-15 07:31 | Outpatient (AMB) | payer MEDICARE, MEDICAID, SELFPAY ==
--- OUTSIDE RECORDS SUMMARY | 2025-02-15 07:34 | XMS_ITS | Encounter Summary ---
Author Organization [employer] Address [address] [facility] 7t [place] [address] Care Team Providers Care Personal Financial Representative Name Role Phone Citlali Tee NP Primary Care Provider [phone] Reason for Visit * Reason Onset Date Comments Med Refill 09/06/2024 Encounter Details Date Type Department Care Team (Late st Contact Info) Description 09/06/2024 Refill [facility] [address] [place], [place] [phone] Sarah Mukherjee NP [address] [place], [place] [phone] Arthralgia of both hands Social History Tobacco [...] documented as of this encounter Care Teams Personal Financial Representative Relationship Specialty Start Date End Date Citlali Tee NP [address] [place] [phone] PCP - General Family Medicine 07/14/23 documented as of this encounter
--- OUTSIDE RECORDS SUMMARY | 2025-02-15 07:34 | XMS_ITS | Encounter Summary ---
Author Organization [employer] Address [address] [facility] 7t [place] [address] Care Team Providers Care Barrel Loader And Cleaner Name Role Phone Citlali Tee JANE Primary Care Provider [phone] Reason for Visit * Reason Onset Date Comments Med Refill 09/06/2024 Encounter Details Date Type Department Care Team ([facility] st Contact Info) Description 09/06/2024 Refill [facility] & P[facility] [address] [place], [place] [phone] Name, MD Ayden [address] [place] [address] Other hyperlipidemia Social History Tobacco Use Types [...] documented as of this encounter Care Teams Barrel Loader And Cleaner Relationship Specialty Start Date End Date Citlali Tee NP [address] [place] [phone] PCP - General Family Medicine 07/14/23 documented as of this encounter
--- OUTSIDE RECORDS SUMMARY | 2025-02-15 07:35 | XMS_ITS | Encounter Summary ---
Author Organization [employer] Address [address] [facility] 7t [place] [address] Care Team Providers Care Order Entry Clerk Name Role Phone Estelle Cain GINI Primary Care Provider Citlali Tee SENIOR AUDIT MANAGER Primary Care Provider [phone] Encounter Details Date Type Department Care Team (Late st Contact Info) Description 04/16/2023 Orders Only [facility] & PEDS [address] [place] [address] Susan Pimentel LPN Social History Tobacco Use [...] FACTOR Routine 10/24/2023 11: 19 AM EDT [id number] G ENZYME Routine 10/24/2023 11:19 AM EDT [...] IMMUNOGLOBULIN G 1340 600 - 1540 mg/dL [facility] IMMUNOGLOBULIN A 233 70 - 320 mg/dL [facility] Immunoglobulin M 84 50 - 300 mg/dL [facility] Comment:THIS TEST WAS PERFOR MED AT:[employer] [place] [id number] BLANCHARD MD Immunofixation Result SEE NOTE [facility] Comment:Normal pattern. No m onoclonal proteins detected. 10/24/2023 11:1 9 AM EDT 10/24/2023 11:19 AM EDT us Generic External Data Provider LAB BLOOD ORDERAB LES Final Result [facility] [address] [place] [phone] * (ABNORMAL) Angiotensin -1- Converting Enzyme (10/24/2023 11:19 AM EDT) Pathologist [facility] Angiotensin Converting Enzyme 70(A) 9 - 67 U/L [facility] Comment:THIS TEST WAS PERFOR MED AT:[employer] [place] [phone] DU MD,PHD 10/24/2023 11:1 9 AM EDT 10/24/2023 11:19 AM EDT us Generic External Data Provider LAB BLOOD ORDERAB LES Final Result [facility] [address] [place] [phone] * (ABNORMAL) Protein Electrophoresis and [place]/[employer] (10/24/2023 11:19 AM EDT) Pathologist [facility] Prot Elec - Total Protein 8.2(A) 6.1 - 8.1 g/dL [facility] Prot Elec - Albumin 4.7 3.8 - 4.8 g/dL [facility] Prot Elec - Alpha1 0.3 0.2 - 0.3 g/dL [facility] Prot Elec - Alpha2 0.8 0.5 - 0.9 g/dL [facility] Prot Elec - Beta 1 0.6 0.4 - 0.6 g/dL [facility] Prot Elec - Beta 2 0.3 0.2 - 0.5 g/dL [facility] Prot Elec - Gamma 1.5 0.8 - 1.7 g/dL [facility] PES - Abn Protein Band 1 [facility] PES-Abn Protein Band 2 [facility] PES-Abn Protein Band 3 [facility] Prot Elec - Interpretation SEE NOTE [facility] Comment:Normal Serum Protein Electrophoresis Pattern.No abnormal protein bands (M-protein) detected.THIS TEST WAS PERFORMED AT:[employer] [place] [id number] BLANCHARD MD 10/24/2023 11:1 9 AM EDT 10/24/2023 11:19 AM EDT us Generic External Data Provider LAB BLOOD ORDERAB LES Final Result [facility] [address] [place] [phone] * SHERYL Screen,IFA, with Reflex to Titer and Pattern (10/24/2023 11:19 AM EDT) Anti Nuclear Antibody Screen NEGATIVE NEGATIVE [facility] Comment:SHERYL IFA is a first l [...] clinicallysuspected inflammatory myopathies.AC-0: NegativeInternational Consensus on SHERYL Patterns(https://doi.org/10.1515/mkyk-9001-5784)For additional information, please refer tohttp://education.gis.to/faq/IRN168(This link is being provided for informational/educational purposes only.)THIS TEST WAS PERFORMED AT:[employer] [place] [phone] BLANCHARD MD SHERYL Titer TNP [facility] SHERYL Pattern TNP [facility] SHERYL TITER 2 (REF LAB) TNP [facility] SHERYL Pattern 2 TNP [facility] SHERYL TITER 3 [facility] SHERYL PATTERN 3 [facility] 10/24/2023 11:1 9 AM EDT 10/24/2023 11:19 AM EDT Generic External Data Provider LAB BLOOD ORDERAB LES Final Result Performing Organization Address [facility] Co de Phone Number [facility] [address] [place] [phone] * Cyclic Citrullinated Peptide (CCP) Antibody (IgG) (10/24/2023 11:19 AM EDT) Pathologist [facility] Cyclic Citrullinated Peptide <16 UNITS [facility] Comment:Reference RangeNegat travis: <20Weak Positive: 20-39Moderate Positive: 40-59Strong Positive: >59THIS TEST WAS PERFORMED AT:[employer] [place] [id number] BLANCHARD MD 10/24/2023 11:1 9 AM EDT 10/24/2023 11:19 AM EDT Generic External Data Provider LAB BLOOD ORDERAB LES Final Result Performing Organization Address [facility] de Phone Number [facility] [address] [place] [phone] * HIV-1/2 Antigen and Antibodies, Fourth Generation, with Reflexes (10/24/2023 11:19 AM EDT) [facility] HIV AB/AG Nonreactive Nonreactive [facility] Comment:HIV-1 p24 Ag and/or HIV-1/HIV-2 Ab not detected.A test result that is nonreactive does not exclude thepossibility of exposure to or infection with HIV-1 and/orHIV-2. Nonreactive results in this assay for individualswith prior exposure to HIV-1 and/or HIV-2 may be due toantigen and antibody levels that are below the limit ofdetection of this assay.The [employer] HIV Ag/Ab Combo assay result andsupplemental assay results should be interpreted inconjunction with the patient's clinical presentation,history and other laboratory results. If the results areinconsistent with clinical evidence, additional testing issuggested to confirm the result. 10/24/2023 11:1 9 AM EDT 10/24/2023 11:19 AM EDT Generic External Data Provider LAB BLOOD ORDERAB LES Final Result Performing Organization Address [facility] Co de Phone Number [facility] [address] [place] [phone] * Hepatitis Panel, General (10/24/2023 11:19 AM EDT) Pathologist [facility] Hepatitis A IgM Nonreactive Nonreactive [facility] Comment:IgM antibodies to PITTS V not detected; does not exclude earlyacute or recovered HAV infection. ~Hepatitis B Surface Antibody REACTIVE Nonreactive [facility] Comment:REACTIVE: > 11.99 mI U/mL Hepatitis B Core Antibody Reactive Nonreactive [facility] Comment:Presumptive evidence of anti-HBc. Hepatitis C Antibody Nonreactive Nonreactive [facility] Comment:Antibodies to HCV no t detected; does not exclude early acuteHCV infection. Hepatitis B Surface Ag Negative Negative [facility] 10/24/2023 11:1 9 AM EDT 10/24/2023 11:19 AM EDT [employer] External Data Provider LAB BLOOD ORDERAB LES Final Result Performing Organization Address [facility] de Phone Number [facility] [address] [place] [phone] * T-SPOT??.TB (10/24/2023 11:19 AM EDT) Pathologist [facility] T Spot TB Negative Negative [facility] Comment:A negative test resu lt does [...] as aquantitative test. TS PANEL A 0 [facility] TS PANEL B 0 [facility] Negative Control Passed [facility] Positive Control Passed [facility] Comment:For additional infor matumair, please refer tohttp://education.iMemories/faq/BZD028(This link is being provided for informational/educational purposes only.)THIS TEST WAS PERFORMED AT:[employer] [id number] [place] [phone] DU MD,PHD 10/24/2023 11:1 9 AM EDT 10/24/2023 11:19 AM EDT us Generic External Data Provider LAB BLOOD ORDERAB LES Final Result Performing Organization Address City/[facility]/ZIP Co de Phone Number [facility] [address] [place] [phone] * Sed Rate by Modified Vikergren (10/24/2023 11:19 AM EDT) Erythrocyte Sedimentation Rate 7 0 - 15 MM/HR [facility] Comment:Patients with polycy themia and many hemoglobin abnormalitiesmay have depressed sed rates whereas patients with anemiamay have elevated sed rates. 10/24/2023 11:1 9 AM EDT 10/24/2023 11:19 AM EDT us Generic External Data Provider LAB BLOOD ORDERAB LES Final Result Performing Organization Address [facility]/ZIP Co de Phone Number [facility] [address] [place] [phone] * C-reactive Protein (10/24/2023 11:19 AM EDT) C Reactive Protein 0.16 < or = 0.50 mg/dL [facility] 10/24/2023 11:1 9 AM EDT 10/24/2023 11:19 AM EDT us Generic External Data Provider LAB BLOOD ORDERAB LES Final Result [facility] [address] [place] [phone] * (ABNORMAL) Comprehensive Metabolic Panel (10/24/2023 11:19 AM EDT) Sodium 140 135 - 145 mmol/L [facility] Potassium 3.7 3.3 - 5.1 mmol/L [facility] Chloride 107 96 - 108 mmol/L [facility] Carbon Dioxide 28 22 - 29 mmol/L [facility] Anion Gap 9(L) 12 - 20 [facility] Urea Nitrogen (BUN) 18(H) 9 - 16 mg/dL [facility] Creatinine, Serum 0.99 0.5 - 1.4 mg/dL [facility] Estimated Glomerular Filt Rate >60 [facility] Comment:NOTE: For -Am erican individuals, multiply the result by 1.210.Chronic Kidney Disease: Estimated GFR < 60 mL/min/1.55p0Gtadvh Kidney Disease: Estimated GFR < 15 mL/min/1.73m2 Glucose 105 60 - 115 mg/dL [facility] Calcium 11.3(H) 8.4 - 10.2 mg/dL [facility] Bilirubin, Total 0.5 0.0 - 1.0 mg/dL [facility] Aspartate Amino Transferase 28 5 - 37 U/L [facility] Alanine Aminotransferase 22 0 - 40 U/L [facility] Total Protein 7.8 6.5 - 8.0 g/dL [facility] Albumin Level 4.5 3.5 - 5.0 g/dL [facility] Alkaline Phosphatase 74 39 - 117 U/L [facility] 10/24/2023 11:1 9 AM EDT 10/24/2023 11:19 AM EDT us Generic External Data Provider LAB BLOOD ORDERAB LES Final Result Performing Organization Address [facility] Co de Phone Number [facility] [address] [place] [phone] * Rheumatoid Factor (10/24/2023 11:19 AM EDT) Rheumatoid Factor <13.0 <15.0 IU/mL [facility] 10/24/2023 11:1 9 AM EDT 10/24/2023 11:19 AM EDT us Generic External Data Provider LAB BLOOD ORDERAB LES Final Result Performing Organization Address [facility] Co tn Phone Number [facility] [address] [place] [phone] * Hemoglobin A1c (10/24/2023 11:19 AM EDT) Hemoglobin A1c 5.5 <6.0 % [facility] Comment:Hemoglobin A1C Refer ence Range Adults: 4.8 - 6.0 % Non diabetic: < 6.0 % Goal: < 7.0 %Additional Action Suggested: > 8.0 %Note: Hemoglobin A1c results are invalid for patients with abnormal amounts of HbF. Blood transfusions may impact the HbA1c concentration in the patient sample. Estimated Average Glucose 111 mg/dL [facility] Comment:eAG = Estimated ave rage glucose which is %A1C expressed asaverage glucose, using the formula of the S9W-JgbpsebQqhyrbg Glucose study (ADAG), Diabetes Care, Vol.31,#8,Dec. 2007 10/24/2023 11:1 9 AM EDT 10/24/2023 11:19 AM EDT us Generic External Data Provider LAB BLOOD ORDERAB LES Final Result Performing Organization Address [facility]/ZIP Co de Phone Number [facility] [address] [place] [phone] * (ABNORMAL) CBC auto differential (10/24/2023 11:19 AM EDT) White Blood Count 4.4(L) 4.8 - 10.8 X10*3/uL [facility] Red Blood Count 4.15(L) 4.60 - 5.80 X10*6/uL [facility] Hemoglobin 12.4(L) 14.0 - 18.0 g/dl [facility] Hematocrit 37.7(L) 42.0 - 52.0 % [facility] Mean Corpuscular Volume 90.8 80.0 - 98.0 fL [facility] Mean Corpuscular Hemoglobin 29.9 27.0 - 33.0 pg [facility] Mean Corpuscular HGB Conc 32.9 31.0 - 36.0 g/dl [facility] Red Cell Distribution Width 12.7 11.0 - 16.0 % [facility] Platelet Count 277 160 - 400 X10*3/uL [facility] Mean Platelet Volume 10.3 9.4 - 12.4 fL [facility] Neutrophils Percent Auto 50.4 45 - 73 % [facility] Imm Gran Pct Auto 0.5(H) 0.0 - 0.4 % [facility] Lymphocytes Percent Auto 33.9 20 - 40 % [facility] Monocytes Percent Auto 10.0 2 - 11 % [facility] Eosinophils Percent Auto 4.3(H) 0 - 4 % [facility] Basophils Percent Auto 0.9 0 - 2 % [facility] NRBC Pct Auto 0.0 0.0 - 0.2 /100WBC [facility] Neutrophils Absolute Auto 2.2 2.0 - 8.3 x10*3/uL [facility] Imm Gran Abs Auto 0.02 0.00 - 0.03 X10*3/uL [facility] Lymphocytes Absolute Auto 1.5 1.2 - 4.9 X10*3/uL [facility] Monocytes Absolute Auto 0.4 0.1 - 1.2 X10*3/uL [facility] Eosinophils Absolute Auto 0.2 0.0 - 0.4 X10*3/uL [facility] Basophils Absolute Auto 0.0 0.0 - 0.2 X10*3/uL [facility] NRBC Abs Auto 0.000 0.0 - 0.012 X10*3/uL [facility] 10/24/2023 11:1 9 AM EDT 10/24/2023 11:19 AM EDT us Generic External Data Provider LAB BLOOD ORDERAB LES Final Result Performing Organization Address City/State/[facility] Co de Phone Number [facility] [address] [place] [phone] documented in this encounter Visit Diagnoses Not on filedocumented in this encounter Care Teams Order Entry Clerk Relationship Specialty Start Date End Date Estelle Cain ANP [address] [place] [address] PCP - General Family Medicine 12/26/21 07/13/23 Citlali Tee NP [address] [place] [address] PCP - General Family Medicine 07/14/23 documented as of this encounter
--- OUTSIDE RECORDS SUMMARY | 2025-02-15 07:35 | XMS_ITS | Clinical Summary ---
Author Organization [facility] Address [address] [place] [address] Phone Care Team Providers Care Virtualization Architect Name Role Phone Physician, Pcp Unknown Primary [...] Health Maintenance Due Date Last Done Comments Colorectal Cancer Screening: Colonoscopy 1960 Pneumococcal Vaccine: 50+ Years (1 of 1 - PCV) 2009 Hepatitis C Screening 06/03/2023 Medicare Annual Wellness Visit 06/03/2023 Social Influencers of Health Screening 06/03/2023 Hepatitis B Vaccines (2 of 3 - 19+ 3-dose series) 08/07/2023 07/10/2023 Falls Risk Assessment 2024 Depression Screening 05/05/2024 COVID-19 Vaccine (3 - 2024- season) 2025 [...] mmol/L LAB CHEMISTRY METHOD 09/21/2024 8:46 AM [facility] Potassium 3.9 3.5 - 5.5 mmol/L LAB CHEMISTRY METHOD 09/21/2024 8:46 AM [facility] Chloride 106 96 - 110 mmol/L LAB CHEMISTRY METHOD 09/21/2024 8:46 AM [facility] CO2 24 21 - 32 mmol/L LAB CHEMISTRY METHOD 09/21/2024 8:46 AM [facility] Anion Gap 6 3 - 11 LAB CHEMISTRY METHOD 09/21/2024 8:46 AM [facility] Glucose 118(H) 70 - 100 mg/dL LAB CHEMISTRY METHOD 09/21/2024 8:46 AM [facility] BUN 17 5 - 25 mg/dL LAB CHEMISTRY METHOD 09/21/2024 8:46 AM [facility] Creatinine 1.10 0.70 - 1.30 mg/dL LAB CHEMISTRY METHOD 09/21/2024 8:46 AM [facility] eGFR 74 >=60 mL/min/1. 73m2 LAB CHEMISTRY METHOD 09/21/2024 8:46 AM [facility] Comment:Calculation based on the Chronic Kidney Disease Epidemiology Collaboration (CKD-EPI) equation refit without adjustment for race. BUN/Creatinine Ratio 15.5 LAB CHEMISTRY METHOD 09/21/2024 8:46 AM [facility] Calcium 11.2(H) 8.5 - 10.5 mg/dL LAB CHEMISTRY METHOD 09/21/2024 8:46 AM [facility] AST (SGOT) 29 10 - 42 unit/L LAB CHEMISTRY METHOD 09/21/2024 8:46 AM [facility] ALT (SGPT) 31 10 - 60 unit/L LAB CHEMISTRY METHOD 09/21/2024 8:46 AM EDT [facility] Alkaline Phosphatase 107 42 - 121 unit/L LAB CHEMISTRY METHOD 09/21/2024 8:46 AM EDT [facility] Total Protein 8.3(H) 6.0 - 8.0 g/dL LAB CHEMISTRY METHOD 09/21/2024 8:46 AM EDT [facility] Albumin 4.6 3.2 - 5.0 g/dL LAB CHEMISTRY METHOD 09/21/2024 8:46 AM EDT [facility] Total Bilirubin 0.4 0.0 - 1.4 mg/dL LAB CHEMISTRY METHOD 09/21/2024 8:46 AM T [facility] Blood Venous blood specimen / Unknown Venipuncture / Unknown 09/21/2024 7:48 AM EDT 09/21/2024 8:14 AM EDT us Lei Mario MD LAB BLOOD ORDERABLES Final Result [facility] [address] [place] [address], from Last 3 Months or Most Recently Relevant to Health Maintenance Insurance MEDICARE MEDICAID - [place] Care Teams Virtualization Architect Relationship Specialty Start Date End Date Physician, Pcp Unknown PCP - General 09/21/24
--- OUTSIDE RECORDS SUMMARY | 2025-02-15 07:35 | XMS_ITS | Clinical Summary ---
Author Organization [employer] Address [address] [facility] [address] [place] [address] Care Team Providers Care Beef Skinner Name Role Phone Citlali Tee JANE Primary Care Provider [phone] Allergies Active Allergy Reactions Criticality Noted Date [...] ng right hip with positive rheumatoid factor ([facility]) 08/10/2024 Assessment & Plan (08/12/2024 6:47 PM [...] Hyperlipidemia 02/13/2016 Rheumatoid arthritis involving both hands (CMS/H CC) 02/01/2016 Assessment & Plan (07/28/2023 1:18 PM EDT): Referral to rheumatology as pt notes increased arthralgias particularly in shoulders and hands, Encounters Date Type Department Care Team Description 01/28/2025 Orders Only [facility] External Provider, [facility] 01/14/2025 Orders Only GENERIC EXTERNAL DATA DEPARTMENT Provider, Generic External Data 01/07/2025 Orders Only GENERIC EXTERNAL DATA DEPARTMENT Provider, Generic External Data 12/06/2024 Refill [facility] [address] [place] [address] Citlali Tee, JANE Other hyperlipidemia from Last 3 Months Immunizations Immunization Administration [...] is your housing situation today? I have yosepharturo melissa 08/10/[address] you [...] 08/07/2023 07/10/2023 Depression Screening 07/27/2024 07/28/2023, 07/28/19 COVID-19 Vaccine (3 - 2024- season) 2025 [...] Name Priority Date/Time Associated Diagnosis Comments XR HAND 3+ VIEWS BILATERAL Routine 01/28/2025 10:55 AM EDT XR WRIST 3+ VIEWS BILATERAL Routine 01/28/2025 10:42 AM EDT XR LUMBAR SPINE COMPLETE 4+ VIEWS Routine 01/28/2025 10:42 AM EDT XR SHOULDER 2+ VIEWS BILATERAL Routine 01/28/2025 10:39 AM EDT XR THORACIC SPINE 3 VIEWS Routine 01/28/2025 10:38 AM EDT HEPATITIS B, C PROFILE Routine 01/14/2025 12:20 PM EDT SED RATE BY MODIFIED WESTERGREN Routine 01/14/2025 12:20 PM EDT C-REACTIVE PROTEIN Routine 01/14/2025 12 :20 PM EDT COMPREHENSIVE METABOLIC PANEL Routine 01/14/2025 12:20 PM EDT CBC WITH AUTO DIFFERENTIAL Routine 01/14/2025 12:20 PM EDT BASIC METABOLIC PANEL Routine 01/07/2025 9:33 AM EDT HEMOGLOBIN A1C Routine 03/08/2024 9:40 AM EST Mixed hyperlipidemia LIPID PANEL, STANDARD Routine 07/14/2023 10:50 AM EDT Essential hypertension Arthralgia of both hands Mixed hyperlipidemia Primary hypertension HM COLONOSCOPY Routine 05/02/2022 from Last 3 Months or Most Recently Relevant to Health Maintenance Results * XR Hand 3+Views Bilateral (01/28/2025 10:55 AM EDT) Anatomical Region Laterality Modality Upper Extremities, Hand Bilateral Radiogra phic Imaging 01/28/2025 10:5 5 AM EDT Narrative 01/28/2025 11:40 AM EDT [place] [address] XRay Report Signed Patient: Ag Gill MR#: [id number] 185 : 1960 Acct:[id number] Age/Sex: 64 / M ADM Date: 01/28/25 Loc: TIM Attending Dr: Autumn Patel MD Ordering Physician: Cher Tellez MD Date of Service: 01/28/25 Procedure(s): XR Hand Bilat min 3v Accession Number(s): [id number] cc: Cher Tellez MD; Citlali Tee NP Reason for Exam: M06.9 - Rheumatoid arthritis, unspecified EXAMINATION: XR HAND/WRIST, RIGHT XR HAND/WRIST, LEFT CLINICAL INFORMATION: M06.9 - Rheumatoid arthritis, unspecified COMPARISON: 10/24/2023. TECHNIQUE: PA, lateral, and oblique views of each hand and wrist. FINDINGS: RIGHT HAND/WRIST: No fracture, dislocation, or suspicious bone lesion. There is normal alignment. There is no significant juxta-articular osteopenia. Degenerative appearing arthritis, moderate to severe, in the first CMC joint unchanged. Mild narrowing of the radiocarpal joint, unchanged. No blunting of the ulnar styloid. No definite carpal erosions identified. Minimal narrowing of the first and second MCP joints, without definite underlying MCP joint erosion. This is unchanged. Mild to moderate degenerative appearing arthritis throughout the DIP joints of the digits, and involving the interphalangeal joint of the thumb, stable in appearance. Very mild degenerative changes of the PIP joints of the digits. No gross periarticular erosions are identified in the digits. Normal-appearing soft tissues. LEFT HAND/WRIST: No fracture, dislocation, or suspicious bone lesion. There is normal alignment. There is no significant juxta-articular osteopenia. Similar appearing possible periarticular erosion of the second digit PIP joint. There may be subtle periarticular erosions in the third and fourth metacarpal heads. Degenerative appearing arthritis, moderate to severe, in the first CMC joint unchanged. Mild narrowing of the radiocarpal joint, unchanged. No blunting of the ulnar styloid. No definite carpal erosions identified. Minimal narrowing of the first and second MCP joints, without definite underlying MCP joint erosion. This is unchanged. Mild to moderate degenerative appearing arthritis throughout the DIP joints of the digits, and involving the interphalangeal joint of the thumb, stable in appearance. Very mild degenerative changes of the PIP joints of the digits. No gross periarticular erosions are identified in the digits. Normal-appearing soft tissues. XR/XR Hand Bilat min 3v IMPRESSION: 1. There are arthritic changes, predominantly degenerative in appearance, most severe in the first CMC joints as discussed. 2. Possible similar subtle periarticular erosion of the PIP joint of the second digit, right hand, as well as involving the third and fourth metacarpal heads. No definite additional periarticular erosions are evident bilaterally. There has been no significant interval change in the appearance of the hands and wrists when compared with the prior study. Electronically signed by: Zane Esqueda MD 01/28/2025 11:37 AM EDT Dictated By: Zane Esqueda MD Signed By: <Electronically signed by Zane Esqueda MD in OV> 01/28/25 1137 DD/ 1055 TD/TT: 01/28/25 1107 Diffusion Furnace Operator: Procedure Note Donotuseinterpreter, Image - 01/28/[address] [address] XRay Report Signed Patient: Ag Gill HMR#: [id number] 185 : 9Acct:[id number] Age/Sex: 64 / MADM Date: 01/28/25 Loc: HO.XRAY Attending Dr: Autumn Patel MD Ordering Physician: Cher Tellez MD Date of Service: 01/28/25 Procedure(s): XR Hand Bilat min 3v Accession Number(s): [id number] cc: Cher Tellez MD; Citlail Tee NP Reason for Exam: M06.9 - Rheumatoid arthritis, unspecified EXAMINATION: XR HAND/WRIST, RIGHT XR HAND/WRIST, LEFT CLINICAL INFORMATION: M06.9 - Rheumatoid arthritis, unspecified COMPARISON: 10/24/2023. TECHNIQUE: PA, lateral, and oblique views of each hand and wrist. FINDINGS: RIGHT HAND/WRIST: No fracture, dislocation, or suspicious bone lesion. There is normal alignment. There is no significant juxta-articular osteopenia. Degenerative appearing arthritis, moderate to severe, in the first CMC joint unchanged. Mild narrowing of the radiocarpal joint, unchanged. No blunting of the ulnar styloid. No definite carpal erosions identified. Minimal narrowing of the first and second MCP joints, without definite underlying MCP joint erosion. This is unchanged. Mild to moderate degenerative appearing arthritis throughout the DIP joints of the digits, and involving the interphalangeal joint of the thumb, stable in appearance. Very mild degenerative changes of the PIP joints of the digits. No gross periarticular erosions are identified in the digits. Normal-appearing soft tissues. LEFT HAND/WRIST: No fracture, dislocation, or suspicious bone lesion. There is normal alignment. There is no significant juxta-articular osteopenia. Similar appearing possible periarticular erosion of the second digit PIP joint. There may be subtle periarticular erosions in the third and fourth metacarpal heads. Degenerative appearing arthritis, moderate to severe, in the first CMC joint unchanged. Mild narrowing of the radiocarpal joint, unchanged. No blunting of the ulnar styloid. No definite carpal erosions identified. Minimal narrowing of the first and second MCP joints, without definite underlying MCP joint erosion. This is unchanged. Mild to moderate degenerative appearing arthritis throughout the DIP joints of the digits, and involving the interphalangeal joint of the thumb, stable in appearance. Very mild degenerative changes of the PIP joints of the digits. No gross periarticular erosions are identified in the digits. Normal-appearing soft tissues. XR/XR Hand Bilat min 3v IMPRESSION: 1. There are arthritic changes, predominantly degenerative in appearance, most severe in the first CMC joints as discussed. 2. Possible similar subtle periarticular erosion of the PIP joint of the second digit, right hand, as well as involving the third and fourth metacarpal heads. No definite additional periarticular erosions are evident bilaterally. There has been no significant interval change in the appearance of the hands and wrists when compared with the prior study. Electronically signed by: Zane Esqueda MD 01/28/2025 11:37 AM EDT Dictated By: Zane Esqueda MD Signed By: <Electronically signed by Zane Esqueda MD in OV> 01/28/25 1137 DD/ 1055 TD/TT: 01/28/25 1107 Diffusion Furnace Operator: [facility] External Provider IMG XR PROCEDURES Final Result * XR Wrist 3+ Views Bilateral (01/28/2025 10:42 AM EDT) Anatomical Region Laterality Modality Upper Extremities, Wrist Bilateral Radiogr aphic Imaging 01/28/2025 10:4 2 AM EDT Narrative 01/28/2025 11:40 AM EDT [address] [address] XRay Report Signed Patient: Ag Gill MR#: [id number] 185 : 1960 Acct:[id number] Age/Sex: 64 / M ADM Date: 01/28/25 Loc: CYNTHIAAY Attending Dr: Autumn Patel MD Ordering Physician: Cher Tellez MD Date of Service: 01/28/25 Procedure(s): XR Wrist Joel min 3V Accession Number(s): [id number] cc: Cher Tellez MD; Citlali Tee NP Reason for Exam: M06.9 - Rheumatoid arthritis, unspecified EXAMINATION: XR HAND/WRIST, RIGHT XR HAND/WRIST, LEFT CLINICAL INFORMATION: M06.9 - Rheumatoid arthritis, unspecified COMPARISON: 10/24/2023. TECHNIQUE: PA, lateral, and oblique views of each hand and wrist. FINDINGS: RIGHT HAND/WRIST: No fracture, dislocation, or suspicious bone lesion. There is normal alignment. There is no significant juxta-articular osteopenia. Degenerative appearing arthritis, moderate to severe, in the first CMC joint unchanged. Mild narrowing of the radiocarpal joint, unchanged. No blunting of the ulnar styloid. No definite carpal erosions identified. Minimal narrowing of the first and second MCP joints, without definite underlying MCP joint erosion. This is unchanged. Mild to moderate degenerative appearing arthritis throughout the DIP joints of the digits, and involving the interphalangeal joint of the thumb, stable in appearance. Very mild degenerative changes of the PIP joints of the digits. No gross periarticular erosions are identified in the digits. Normal-appearing soft tissues. LEFT HAND/WRIST: No fracture, dislocation, or suspicious bone lesion. There is normal alignment. There is no significant juxta-articular osteopenia. Similar appearing possible periarticular erosion of the second digit PIP joint. There may be subtle periarticular erosions in the third and fourth metacarpal heads. Degenerative appearing arthritis, moderate to severe, in the first CMC joint unchanged. Mild narrowing of the radiocarpal joint, unchanged. No blunting of the ulnar styloid. No definite carpal erosions identified. Minimal narrowing of the first and second MCP joints, without definite underlying MCP joint erosion. This is unchanged. Mild to moderate degenerative appearing arthritis throughout the DIP joints of the digits, and involving the interphalangeal joint of the thumb, stable in appearance. Very mild degenerative changes of the PIP joints of the digits. No gross periarticular erosions are identified in the digits. Normal-appearing soft tissues. XR/XR Wrist Joel min 3V IMPRESSION: 1. There are arthritic changes, predominantly degenerative in appearance, most severe in the first CMC joints as discussed. 2. Possible similar subtle periarticular erosion of the PIP joint of the second digit, right hand, as well as involving the third and fourth metacarpal heads. No definite additional periarticular erosions are evident bilaterally. There has been no significant interval change in the appearance of the hands and wrists when compared with the prior study. Electronically signed by: Zane Esqueda MD 01/28/2025 11:37 AM EDT RP Dictated By: Zane Esqueda MD Signed By: <Electronically signed by Zane Esqueda MD in OV> 01/28/25 1137 DD/ 1042 TD/TT: 01/28/25 1107 Diffusion Furnace Operator: Procedure Note Donotuseinterpreter, Image - 01/28/[address] [address] XRay Report Signed Patient: Ag Gill R#: [id number] 185 : 9Acct:[id number] Age/Sex: 64 / MADM Date: 01/28/25 Loc: HO.CYNTHIAAY Attending Dr: Autumn Patel MD Ordering Physician: Cher Tellez MD Date of Service: 01/28/25 Procedure(s): XR Wrist Joel min 3V Accession Number(s): [id number] cc: Cher Tellez MD; Citlali Tee NP Reason for Exam: M06.9 - Rheumatoid arthritis, unspecified EXAMINATION: XR HAND/WRIST, RIGHT XR HAND/WRIST, LEFT CLINICAL INFORMATION: M06.9 - Rheumatoid arthritis, unspecified COMPARISON: 10/24/2023. TECHNIQUE: PA, lateral, and oblique views of each hand and wrist. FINDINGS: RIGHT HAND/WRIST: No fracture, dislocation, or suspicious bone lesion. There is normal alignment. There is no significant juxta-articular osteopenia. Degenerative appearing arthritis, moderate to severe, in the first CMC joint unchanged. Mild narrowing of the radiocarpal joint, unchanged. No blunting of the ulnar styloid. No definite carpal erosions identified. Minimal narrowing of the first and second MCP joints, without definite underlying MCP joint erosion. This is unchanged. Mild to moderate degenerative appearing arthritis throughout the DIP joints of the digits, and involving the interphalangeal joint of the thumb, stable in appearance. Very mild degenerative changes of the PIP joints of the digits. No gross periarticular erosions are identified in the digits. Normal-appearing soft tissues. LEFT HAND/WRIST: No fracture, dislocation, or suspicious bone lesion. There is normal alignment. There is no significant juxta-articular osteopenia. Similar appearing possible periarticular erosion of the second digit PIP joint. There may be subtle periarticular erosions in the third and fourth metacarpal heads. Degenerative appearing arthritis, moderate to severe, in the first CMC joint unchanged. Mild narrowing of the radiocarpal joint, unchanged. No blunting of the ulnar styloid. No definite carpal erosions identified. Minimal narrowing of the first and second MCP joints, without definite underlying MCP joint erosion. This is unchanged. Mild to moderate degenerative appearing arthritis throughout the DIP joints of the digits, and involving the interphalangeal joint of the thumb, stable in appearance. Very mild degenerative changes of the PIP joints of the digits. No gross periarticular erosions are identified in the digits. Normal-appearing soft tissues. XR/XR Wrist Joel min 3V IMPRESSION: 1. There are arthritic changes, predominantly degenerative in appearance, most severe in the first CMC joints as discussed. 2. Possible similar subtle periarticular erosion of the PIP joint of the second digit, right hand, as well as involving the third and fourth metacarpal heads. No definite additional periarticular erosions are evident bilaterally. There has been no significant interval change in the appearance of the hands and wrists when compared with the prior study. Electronically signed by: Zane Esqueda MD 01/28/2025 11:37 AM EDT Dictated By: Zane Esqueda MD Signed By: <Electronically signed by Zane Esqueda MD in OV> 01/28/25 1137 DD/ 1042 TD/TT: 01/28/25 1107 Diffusion Furnace Operator: us [facility] External Provider IMG XR PROCEDURES Final Result * XR Lumbar Spine Complete 4+ Views (01/28/2025 10:42 AM EDT) Anatomical Region Laterality Modality Spine, L-spine Radiographic Mary ging 01/28/2025 10:4 2 AM EDT Narrative 01/28/2025 11:17 AM EDT [address] [address] XRay Report Signed Patient: Ag Gill MR#: [id number] 185 : 1960 Acct:[id number] Age/Sex: 64 / M ADM Date: 01/28/25 Loc: TIM Attending Dr: Autumn Patel MD Ordering Physician: Cher Tellez MD Date of Service: 01/28/25 Procedure(s): XR lumbar spine 4V min Accession Number(s): [id number] cc: Cher Tellez MD; Citlali Tee NP Reason for Exam: M06.9 - Rheumatoid arthritis, unspecified EXAMINATION: XR LUMBOSACRAL SPINE WITH OBLIQUES CLINICAL INFORMATION: M06.9 - Rheumatoid arthritis, unspecified COMPARISON: Correlated to CT abdomen pelvis dated November 01, 2024 TECHNIQUE: AP oblique and lateral views. . FINDINGS: S-shaped curvature of the lumbar spine. Bilateral facet joint hypertrophy at L4-5 and L5-S1. Multilevel endplate sclerosis. Decreased intervertebral disc height at L3-4, L4-5 and L5-S1 level. 6 mm anterolisthesis at L4-5. No spondylolysis pars interarticulares. No lytic or blastic lesions XR/XR lumbar spine 4V min IMPRESSION: Grade 1 anterolisthesis L4-5 on a degenerative basis. Multilevel lower lumbar spondylosis Electronically signed by: Trevor Mckay MD 01/28/2025 11:14 AM EDT Dictated By: Trevor John MD Signed By: <Electronically signed by Trevor Juárez MD in OV> 01/28/25 1114 DD/ 1042 TD/TT: 01/28/25 1107 Diffusion Furnace Operator: Procedure Note Donotuseinterpreter, Image - 01/28/[address] [address] XRay Report Signed Patient: Ag Gill HMR#: [id number] 185 : 9Acct:[id number] Age/Sex: 64 / MADM Date: 01/28/25 Loc: HO.XRAY Attending Dr: Autumn Patel MD Ordering Physician: Cher Tellez MD Date of Service: 01/28/25 Procedure(s): XR lumbar spine 4V min Accession Number(s): [id number] cc: Cher Tellez MD; Citlali Tee NP Reason for Exam: M06.9 - Rheumatoid arthritis, unspecified EXAMINATION: XR LUMBOSACRAL SPINE WITH OBLIQUES CLINICAL INFORMATION: M06.9 - Rheumatoid arthritis, unspecified COMPARISON: Correlated to CT abdomen pelvis dated November 01, 2024 TECHNIQUE: AP oblique and lateral views. . FINDINGS: S-shaped curvature of the lumbar spine. Bilateral facet joint hypertrophy at L4-5 and L5-S1. Multilevel endplate sclerosis. Decreased intervertebral disc height at L3-4, L4-5 and L5-S1 level. 6 mm anterolisthesis at L4-5. No spondylolysis pars interarticulares. No lytic or blastic lesions XR/XR lumbar spine 4V min IMPRESSION: Grade 1 anterolisthesis L4-5 on a degenerative basis. Multilevel lower lumbar spondylosis Electronically signed by: Trevro Mckay MD 01/28/2025 11:14 AM EDT Dictated By: Trevor John MD Signed By: <Electronically signed by Trevor Juárez MDin OV> 01/28/25 1114 DD/ 1042 TD/TT: 01/28/25 1107 Diffusion Furnace Operator: [facility] External Provider IMG XR PROCEDURES Final Result * XR Shoulder 2+ Views Bilateral (01/28/2025 10:39 AM EDT) Anatomical Region Laterality Modality Upper Extremities, Shoulder Bilateral Radi ographic Imaging 01/28/2025 10:3 9 AM EDT Narrative 01/28/2025 11:28 AM EDT [address] [address] XRay Report Signed Patient: Ag Gill MR#: [id number] 185 : 1960 Acct:[id number] Age/Sex: 64 / M ADM Date: 01/28/25 Loc: HO.CYNTHIAAY Attending Dr: Autumn Patel MD Ordering Physician: Cher Tellez MD Date of Service: 01/28/25 Procedure(s): XR Shoulder Joel min 2V Accession Number(s): [id number] cc: Cher Tellez MD; Citlali Tee NP Reason for Exam: M06.9 - Rheumatoid arthritis, unspecified EXAMINATION: XR SHOULDER, JOEL 3V CLINICAL INFORMATION: M06.9 - Rheumatoid arthritis, unspecified COMPARISON: 10/24/2023. TECHNIQUE: AP external rotation, Grashey, scapular Y, and axillary views of each shoulder. FINDINGS: RIGHT SHOULDER: Normal bone mineralization. No fracture, dislocation, or suspicious bone lesion. Normal alignment. The glenohumeral joint demonstrates mild arthritic changes. The AC joint demonstrates mild to moderate arthritic spurring. There is a type II acromion. No undersurface spurring. The subacromial space is preserved. Remainder of the soft tissue and bony structures appear normal. LEFT SHOULDER: Normal bone mineralization. No fracture, dislocation, or suspicious bone lesion. Normal alignment. The glenohumeral joint demonstrates mild arthritic changes. The AC joint demonstrates mild to moderate arthritic spurring. There is a type II acromion. No undersurface spurring. The subacromial space is preserved. Remainder of the soft tissue and bony structures appear normal. XR/XR Shoulder Joel min 2V IMPRESSION: 1. Bilateral shoulders demonstrating mild arthritic changes in the glenohumeral joints, and mild to moderate spurring of the bilateral AC joints. There has been little interval change from 10/24/2023. Electronically signed by: Zane Esqueda MD 01/28/2025 11:25 AM EDT RP Dictated By: Zane Esqueda MD Signed By: <Electronically signed by Zane Esqueda MD in OV> 01/28/25 1125 DD/ 1039 TD/TT: 01/28/25 1107 Diffusion Furnace Operator: Procedure Note Donotceleinterpreter, Image - 01/28/2025 [place] [address] XRay Report Signed Patient: Ag Gill HMR#: [id number] 185 : 9Acct:[id number] Age/Sex: 64 / MADM Date: 01/28/25 Loc: TIM Attending Dr: Autumn Patel MD Ordering Physician: Cher Tellez MD Date of Service: 01/28/25 Procedure(s): XR Shoulder Joel min 2V Accession Number(s): [id number] cc: Cher Tellez MD; Citlali Tee NP Reason for Exam: M06.9 - Rheumatoid arthritis, unspecified EXAMINATION: XR SHOULDER, JOEL 3V CLINICAL INFORMATION: M06.9 - Rheumatoid arthritis, unspecified COMPARISON: 10/24/2023. TECHNIQUE: AP external rotation, Grashey, scapular Y, and axillary views of each shoulder. FINDINGS: RIGHT SHOULDER: Normal bone mineralization. No fracture, dislocation, or suspicious bone lesion. Normal alignment. The glenohumeral joint demonstrates mild arthritic changes. The AC joint demonstrates mild to moderate arthritic spurring. There is a type II acromion. No undersurface spurring. The subacromial space is preserved. Remainder of the soft tissue and bony structures appear normal. LEFT SHOULDER: Normal bone mineralization. No fracture, dislocation, or suspicious bone lesion. Normal alignment. The glenohumeral joint demonstrates mild arthritic changes. The AC joint demonstrates mild to moderate arthritic spurring. There is a type II acromion. No undersurface spurring. The subacromial space is preserved. Remainder of the soft tissue and bony structures appear normal. XR/XR Shoulder Joel min 2V IMPRESSION: 1. Bilateral shoulders demonstrating mild arthritic changes in the glenohumeral joints, and mild to moderate spurring of the bilateral AC joints. There has been little interval change from 10/24/2023. Electronically signed by: Zane Esqueda MD 01/28/2025 11:25 AM EDT RP Dictated By: Zane Esqueda MD Signed By: <Electronically signed by Zane Esqueda MD in OV> 01/28/25 1125 DD/ 1039 TD/TT: 01/28/25 1107 Diffusion Furnace Operator: [facility] External Provider IMG XR PROCEDURES Final Result * XR Thoracic Spine 3 Views (01/28/2025 10:38 AM EDT) Anatomical Region Laterality Modality Spine, T-spine Radiographic Mary ging 01/28/2025 10:3 8 AM EDT Narrative 01/28/2025 11:14 AM EDT [place] [address] XRay Report Signed Patient: Ag Gill MR#: [id number] 185 : 1960 Acct:[id number] Age/Sex: 64 / M ADM Date: 01/28/25 Loc: TIM Attending Dr: Autumn Patel MD Ordering Physician: Cher Tellez MD Date of Service: 01/28/25 Procedure(s): XR thoracic spine 3V Accession Number(s): [id number] cc: Cher Tellez MD; Citlali Tee NP Reason for Exam: M06.9 - Rheumatoid arthritis, unspecified EXAMINATION: XR THORACIC SPINE CLINICAL INFORMATION: M06.9 - Rheumatoid arthritis, unspecified COMPARISON: None available. TECHNIQUE: AP and lateral views FINDINGS: Small marginal osteophyte formation at multiple is of the axial skeleton pronounced at C5-6 and C6-7 levels. No acute cortical disruption or gross malalignment. No lytic or blastic lesions. S-shaped curvature of the thoracic spine. XR/XR thoracic spine 3V IMPRESSION: Mild scoliosis versus positioning, thoracic spine. Multilevel spondylosis pronounced at C5-6 and C6-7 levels. Electronically signed by: Trevor Mckay MD 01/28/2025 11:11 AM EDT RP Dictated By: Trevor John MD Signed By: <Electronically signed by Trevor Juárez MD in OV> 01/28/25 1111 DD/ 1038 TD/TT: 01/28/25 1107 Diffusion Furnace Operator: Procedure Note Donotuseinterpreter, Image - 01/28/2025 [place] [address] XRay Report Signed Patient: Ag Gill HMR#: [id number] : [id number]:[id number] Age/Sex: 64 / MADM Date: 01/28/25 Loc: HO.XRAY Attending Dr: Autumn Patel MD Ordering Physician: Cher Tellez MD Date of Service: 01/28/25 Procedure(s): XR thoracic spine 3V Accession Number(s): [id number] cc: Cher Tellez MD; Citlali Tee NP Reason for Exam: M06.9 - Rheumatoid arthritis, unspecified EXAMINATION: XR THORACIC SPINE CLINICAL INFORMATION: M06.9 - Rheumatoid arthritis, unspecified COMPARISON: None available. TECHNIQUE: AP and lateral views FINDINGS: Small marginal osteophyte formation at multiple is of the axial skeleton pronounced at C5-6 and C6-7 levels. No acute cortical disruption or gross malalignment. No lytic or blastic lesions. S-shaped curvature of the thoracic spine. XR/XR thoracic spine 3V IMPRESSION: Mild scoliosis versus positioning, thoracic spine. Multilevel spondylosis pronounced at C5-6 and C6-7 levels. Electronically signed by: Trevor Mckay MD 01/28/2025 11:11 AM EDT RP Dictated By: Trevor John MD Signed By: <Electronically signed by Trevor Juárez MDin OV> 01/28/25 1111 DD/ 1038 TD/TT: 01/28/25 1107 Diffusion Furnace Operator: us [facility] External Provider IMG XR PROCEDURES Final Result * Hepatitis B, C Profile (01/14/2025 12:20 PM EDT) Pathologist [facility] ~Hepatitis B Surface Antibody REACTIVE Nonreactive [facility] Comment:REACTIVE: > 11.99 mI U/mL Hepatitis B Core Antibody Reactive Nonreactive [facility] Comment:Presumptive evidence of anti-HBc. Hepatitis C Antibody Nonreactive Nonreactive [facility] Comment:Antibodies to HCV no t detected; does not exclude early acuteHCV infection. Hepatitis B Surface Ag Negative Negative [facility] 01/14/2025 12:2 0 PM EDT 01/14/2025 12:20 PM EDT us Generic External Data Provider LAB BLOOD ORDERAB LES Final Result [facility] [address] [place] [phone] * (ABNORMAL) CBC auto differential (01/14/2025 12:20 PM EDT) Pathologist [facility] White Blood Count 5.4 4.8 - 10.8 X10*3/uL [facility] Red Blood Count 4.03(L) 4.60 - 5.80 X10*6/uL [facility] Hemoglobin 12.3(L) 14.0 - 18.0 g/dl [facility] Hematocrit 37.4(L) 42.0 - 52.0 % [facility] Mean Corpuscular Volume 92.8 80.0 - 98.0 fL [facility] Mean Corpuscular Hemoglobin 30.5 27.0 - 33.0 pg [facility] Mean Corpuscular HGB Conc 32.9 31.0 - 36.0 g/dl [facility] Red Cell Distribution Width 13.5 11.0 - 16.0 % [facility] Platelet Count 257 160 - 400 X10*3/uL [facility] Mean Platelet Volume 10.4 9.4 - 12.4 fL [facility] Neutrophils Percent Auto 62.1 45 - 73 % [facility] Imm Gran Pct Auto 0.6(H) 0.0 - 0.4 % [facility] Lymphocytes Percent Auto 24.8 20 - 40 % [facility] Monocytes Percent Auto 8.6 2 - 11 % [facility] Eosinophils Percent Auto 3.3 0 - 4 % [facility] Basophils Percent Auto 0.6 0 - 2 % [facility] NRBC Pct Auto 0.0 0.0 - 0.2 /100WBC [facility] Neutrophils Absolute Auto 3.4 2.0 - 8.3 x10*3/uL [facility] Imm Gran Abs Auto 0.03 0.00 - 0.03 X10*3/uL [facility] Lymphocytes Absolute Auto 1.4 1.2 - 4.9 X10*3/uL [facility] Monocytes Absolute Auto 0.5 0.1 - 1.2 X10*3/uL [facility] Eosinophils Absolute Auto 0.2 0.0 - 0.4 X10*3/uL [facility] Basophils Absolute Auto 0.0 0.0 - 0.2 X10*3/uL [facility] NRBC Abs Auto 0.000 0.0 - 0.012 X10*3/uL [facility] 01/14/2025 12:2 0 PM EDT 01/14/2025 12:20 PM EDT us Generic External Data Provider LAB BLOOD ORDERAB LES Final Result [facility] [address] [place] [phone] * Sed Rate by Modified Lonnie (01/14/2025 12:20 PM EDT) Erythrocyte Sedimentation Rate 7 0 - 15 MM/HR [facility] Comment:Patients with polycy themia and many hemoglobin abnormalitiesmay have depressed sed rates whereas patients with anemiamay have elevated sed rates. 01/14/2025 12:2 0 PM EDT 01/14/2025 12:20 PM EDT us Generic External Data Provider LAB BLOOD ORDERAB LES Final Result Performing Organization Address City/[facility]/ZIP Co de Phone Number [facility] [address] [place] [phone] * C-reactive Protein (01/14/2025 12:20 PM EDT) C Reactive Protein 0.16 < or = 0.50 mg/dL [facility] 01/14/2025 12:2 0 PM EDT 01/14/2025 12:20 PM EDT [employer] External Data Provider LAB BLOOD ORDERAB LES Final Result Performing Organization Address [facility] Co de Phone Number [facility] [address] [place] [phone] * (ABNORMAL) Comprehensive Metabolic Panel (01/14/2025 12:20 PM EDT) Pathologist [facility] Sodium 141 135 - 145 mmol/L [facility] Potassium 3.6 3.3 - 5.1 mmol/L [facility] Chloride 107 96 - 108 mmol/L [facility] Carbon Dioxide 26 22 - 29 mmol/L [facility] Anion Gap 12 12 - 20 [facility] Urea Nitrogen (BUN) 23(H) 9 - 16 mg/dL [facility] Creatinine, Serum 1.09 0.5 - 1.4 mg/dL [facility] Estimated Glomerular Filt Rate >60 [facility] Comment:Chronic Kidney Disea se: Estimated GFR < 60 mL/min/1.96l0Yaaytv Kidney Disease: Estimated GFR < 15 mL/min/1.73m2 Glucose 147(H) 60 - 115 mg/dL [facility] Calcium 10.6(H) 8.4 - 10.2 mg/dL [facility] Bilirubin, Total 0.3 0.0 - 1.0 mg/dL [facility] Aspartate Amino Transferase 23 5 - 37 U/L [facility] Alanine Aminotransferase 28 0 - 40 U/L [facility] Total Protein 7.6 6.5 - 8.0 g/dL [facility] Albumin Level 4.5 3.5 - 5.0 g/dL [facility] Alkaline Phosphatase 95 39 - 117 U/L [facility] 01/14/2025 12:2 0 PM EDT 01/14/2025 12:20 PM EDT us Generic External Data Provider LAB BLOOD ORDERAB LES Final Result Performing Organization Address [facility] Co de Phone Number [facility] [address] [place] [phone] * (ABNORMAL) Basic Metabolic Panel (01/07/2025 9:33 AM EDT) Sodium 141 135 - 145 mmol/L [facility] Potassium 3.7 3.3 - 5.1 mmol/L [facility] Chloride 107 96 - 108 mmol/L [facility] Carbon Dioxide 27 22 - 29 mmol/L [facility] Anion Gap 11(L) 12 - 20 [facility] Urea Nitrogen (BUN) 17(H) 9 - 16 mg/dL [facility] Creatinine, Serum 0.96 0.5 - 1.4 mg/dL [facility] Estimated Glomerular Filt Rate >60 [facility] Comment:Chronic Kidney Disea se: Estimated GFR < 60 mL/min/1.05k8Moywxy Kidney Disease: Estimated GFR < 15 mL/min/1.73m2 Glucose 106 60 - 115 mg/dL [facility] Calcium 10.5(H) 8.4 - 10.2 mg/dL [facility] 01/07/2025 9:33 AM EDT 01/07/2025 9:33 AM EDT us Generic External Data Provider LAB BLOOD ORDERAB LES Final Result Performing Organization Address City/[facility]/ZIP Co de Phone Number [facility] [address] [place] [phone] * Hemoglobin A1c (03/08/2024 9:40 AM EST) Hemoglobin A1c 5.7 <6.0 % [facility] Comment:Hemoglobin A1C Refer ence Range Adults: 4.8 - 6.0 % Non diabetic: < 6.0 % Goal: < 7.0 %Additional Action Suggested: > 8.0 %Note: Hemoglobin A1c results are invalid for patients with abnormal amounts of HbF. Blood transfusions may impact the HbA1c concentration in the patient sample. Estimated Average Glucose 117 mg/dL [facility] Comment:eAG = Estimated ave rage glucose which is %A1C expressed asaverage glucose, using the formula of the I3C-XiiecqrQdmhatt Glucose study (ADAG), Diabetes Care, Vol.31,#8,Dec. 2007 Blood Venous blood specimen / Unknown 03/08/2024 9:40 AM EST 03/08/2024 11:04 AM EST us Citlali Tee NP LAB BLOOD ORDERABLES Final Resul t [facility] [address] [place] [phone] * Lipid Panel, Standard (07/14/2023 10:50 AM EDT) Triglycerides 100 <150 mg/dL [facility] Comment:Desirable Triglyceri de: less than 150 mg/dLBorderline High Triglyceride 150-199 mg/dLHigh Triglyceride: 200-499 mg/dLVery High Triglyceride: greater than or equal to 5OO mg/dL Cholesterol 137 <200 mg/dL [facility] Comment:Desirable Cholestero l: less than 200 mg/dLBorderline High Cholesterol: 200-239 mg/dLHigh Cholesterol: greater than 239 mg/dL LDL Cholesterol Calculated 74 <100 mg/dL [facility] Comment:Desirable LDL: less than 100 mg/dLNear Optimal/Above Optimal LDL: 110- 129 mg/dLBorderline High LDL: 130-159 mg/dLHigh LDL: 160-189 mg/dLVery High LDL: greater than or equal to 190 mg/dL HDL Cholesterol 43 >40 mg/dL [facility] Comment:Desirable HDL: great er than 40 mg/dL Note: This HDL assay may give artificially low results in patients with liver disease. Blood Venous blood specimen / Unknown 07/14/2023 10:50 AM EDT 07/14/2023 1:02 PM EDT us Saba Hatfield MD LAB BLOOD ORDERABLES Final Result [facility] [address] [place] [phone] * Colonoscopy (05/02/2022) Colonoscopy Normal Normal us Shawanda Feldman NP HEALTH MAINTENANCE Edited Resul t - Final from Last 3 Months or Most Recently Relevant to Health Maintenance Insurance [place] [address] , [facility] [address] [place] [address] [facility] MEDICARE Care Teams Beef Skinner Relationship Specialty Start Date End Date Citlali Tee NP [address] [place] [phone] PCP - General Family Medicine 07/14/23
--- OUTSIDE RECORDS SUMMARY | 2025-02-15 07:35 | XMS_ITS | Clinical Summary ---
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
--- OUTSIDE RECORDS SUMMARY | 2025-02-15 07:35 | XMS_ITS | Encounter Summary ---
Author Organization [employer] Address [address] [facility] [address]t [place] [address] Care Team Providers Care Front Office Administrator Name Role Phone Citlali Tee NP Primary Care Provider [phone] Reason for Visit * Reason Comments Med Refill Encounter Details Date Type Department Care Team (Late st Contact Info) Description 05/23/2024 Refill [facility] [address], [place] [phone] Citlali Tee NP [address] [place], [place] [phone] Essential hypertension; Primary hypertension; Other hyperlipidemia Social [...] documented as of this encounter Care Teams Front Office Administrator Relationship Specialty Start Date End Date Citlali Tee NP [address] [place] [phone] PCP - General Family Medicine 07/14/23 documented as of this encounter
--- OUTSIDE RECORDS SUMMARY | 2025-02-15 07:35 | XMS_ITS | Encounter Summary ---
Author Organization [employer] Address [address] [facility] 7[address] [place] [address] Care Team Providers Care Class 1 Owner Operator Name Role Phone Citlali Tee JANE Primary Care Provider [phone] Encounter Details Date Type Department Care Team (Late st Contact Info) Description 12/26/2023 Orders Only [facility] [address] [place] [address] Provider, MD Claude Social History Tobacco Use [...] documented as of this encounter Care Teams Class 1 Owner Operator Relationship Specialty Start Date End Date Citlali Tee NP [address] [place] [address] PCP - General Family Medicine 07/14/23 documented as of this encounter
--- OUTSIDE RECORDS SUMMARY | 2025-02-15 07:35 | XMS_ITS | Encounter Summary ---
Author Organization [employer] Address [address] [facility] [address] [place] [address] Care Team Providers Care Tube Sizer Operator Name Role Phone Citlali Tee JANE Primary Care Provider [phone] Reason for Visit * Reason Comments Med Refill Encounter Details Date Type Department Care Team (Late st Contact Info) Description 08/08/2023 Refill [facility] [address] [place], [place] [phone] Estelle Cain ANP [address] [place], [place] [phone] Essential hypertension; Primary hypertension Social History Tobacco [...] documented as of this encounter Care Teams Tube Sizer Operator Relationship Specialty Start Date End Date Citlali Tee NP [address] [place] [address] PCP - General Family Medicine 07/14/23 documented as of this encounter
--- OUTSIDE RECORDS SUMMARY | 2025-02-15 07:35 | XMS_ITS | Clinical Summary ---
Author Organization [facility] Address [address] [place] [address] Care Team Providers Care Hydrotechnical Specialist Name Role Phone Americo Hu PA-C Primary Care Provider [phone] Source Comments PLEASE NOTE, if this patient [...] pressure) 02/13/2016 Rheumatoid arthritis involving both hands 2015 Resolved Problems Problem Noted Date Diagnosed Date [...] exists Depression Annual Screen 05/05/2024 05/27/2019, 04/05 [id number] ( season) 2025 07/17/2021, 09/25/2020, 09/04/2020 Imm-Influenza [...] & HIV-2 ANTIBODIES (06/03/2019 9:45 AM EST) [facility] HIV 1 AND 2 ANTIBODY SCREEN NEGATIVE NEGATIVE [facility] Comment: This assay is a [...] 9:45 AM EST 06/03/2019 9:46 AM EST [facility] [employer] [facility] CompanyUMP[facility] - 06/03/2019 12:50 PM EST [employer], [place] [address] Machine Packer - Dhara Flores MD PT ID [id number] ORD# [id number] Mercedes RAMIREZ LAB - BLOOD DRAW Final Resu lt Performing Organization Address [facility] [place] [address], * HEMOGLOBIN, GLYCOSYLATED (A1C) (06/03/2019 9:45 AM EST) [facility] GLYCATED HEMOGLOBIN A1C 5.1 <6.5 % [facility] ESTIMATED AVERAGE GLUCOSE 100 mg/dL [facility] Blood specimen (specimen) Blood / Unknown 06/03/2019 9:45 AM EST 06/03/2019 9:46 AM EST Narrative [facility] [employer] [facility] - 06/03/2019 12:31 PM EST [employer], a member of [address] [address] Machine Packer - Dhara Flores MD PT ID [id number] ORD# [id number] Mercedes RAMIREZ LAB - BLOOD DRAW Final Resu lt Performing Organization Address City/[facility]/ZIP Co de Phone Number [address] [address], * (ABNORMAL) LIPID PANEL (06/03/2019 9:44 AM EST) CHOLESTEROL 187 0 - 200 mg/dL [facility] TRIGLYCERIDES 73 0 - 150 mg/dL [facility] HDL CHOLESTEROL 58 >40 mg/dL [facility] LDL CALCULATED 115(H) 0 - 100 mg/dL [facility] TC-HDLC RATIO 3.2 0 - 4.4 mg/dL [facility] Blood specimen (specimen) Blood / Unknown 06/03/2019 9:44 AM EST 06/03/2019 9:46 AM EST Narrative [facility] - 06/03/2019 12:01 PM EST [employer] [address] Machine Packer - Dhara Flores MD PT ID [id number] ORD# [id number] Mercedes Broderick [facility] LAB - BLOOD DRAW Final Resu lt Performing Organization Address City/State/[facility] [place] [address], * (ABNORMAL) hepatitis ABC panel future (04/30/2018 9:50 AM EST) HEPATITIS B SURFACE ANTIBODY POSITIVE(A) NEGATIVE [facility] HEPATITIS B SURFACE ANTIGEN NEGATIVE NEGATIVE [facility] Comment: Over the counter supplements containing high doses of biotin may interfere with this assay. If interference is suspected, patients shoud be retested after refraining from biotin supplements for 72 hours. HEPATITIS C VIRUS DIAGNOSTIC NEGATIVE NEGATIVE [facility] HEPATITIS A ANTIBODY TOTAL POSITIVE(A) NEGATIVE [facility] Comment: Over the counter supplements containing high doses of biotin may interfere with this assay. If interference is suspected, patients shoud be retested after refraining from biotin supplements for 72 hours. HEPATITIS B CORE ANTIBODY POSITIVE(A) NEGATIVE [facility] Blood specimen (specimen) Blood / Unknown 04/30/2018 9:50 AM EST 04/30/2018 11:36 AM EST Narrative [facility] - 04/30/2018 7:16 PM EST [employer], a member of [address] [address] Machine Packer - Janell Pollack MD PT ID [id number] ORD# [id number] Clinton Hanson MD LAB - BLOOD DRAW Edited Result - Final [facility] [address] [place] [address], from Last 3 Months or Most Recently Relevant to Health Maintenance Insurance [facility] ([facility]) Member Subscriber Plan / Payer (Ef fective 2019-Present) Name:Ag Gill Relation to Subscriber:Self Name:Ag Gill Payer ID:[id number] Group ID:Not on file Type:[employer] Address: [address] [place] [id number] [place] [address] [place] Care Teams Hydrotechnical Specialist Relationship Specialty Start Date End Date Americo Hu PA-C [address] [place] [address] [facility] - General 10/12/21
--- NOTE | 2025-02-15 07:40 | MHC.OFFVIS ---
Vital Signs 02/15/25 07:46 Height 5 ft 5 in Weight 186 lb 11.704 oz BMI 31.1 BP 140/80 H Blood Pressure Location Lt brachial Position Sitting Pulse 90 Pulse Source Pulse Oximeter Pulse Oximetry (%) 96 Oxygen Delivery Method Room Air Intake Visit Reasons: follow up Intake Note: Patient presents for RA follow up. Allergies ibuprofen (From MOTRIN) Allergy (Intermediate, Verified 02/15/25 07:45) RASH latex Allergy (Intermediate, Verified 02/15/25 07:45) Rash HPI Comments Details: Patient is a 64 y.o. male with HTN, HLD, bilateral carpal tunnel syndrome, hyperparathyroidism, and seronegative RA Interval History: Patient last seen 01/19/25 with me - On methotrexate 15 mg weekly and folic acid 1 mg daily - Does not feel the methotrexate is working - Complaining of midback pain that he feels radiates across his back like the band - Hands feel very stiff and swollen - Decreased motion in the wrist - Given prednisone taper and methotrexate dose increased Today - On methotrexate 20mg PO weekly and folic acid - Completed the prednisone taper - [place] 60-70% improved on the prednisone - Currently only complaining of mild pain even after completing the taper Rheumatologic History: dx approx 2008 ttt MTX + prednisone for 2-3 years then lost to follow up MTX restarted 10/2023 - 04/2024 due to change in providers MTx restarted 09/2024 Initial history: This is a 63-year-old male with history of rheumatoid arthritis who presents as a new patient. Patient states that around 15 years ago he woke up 1 day with abrupt onset of bilateral hip pain soon after he started having pain swelling and stiffness of his fingers. He was evaluated at the [facility]. He was diagnosed with rheumatoid arthritis and started on methotrexate and prednisone with good improvement. After some time the prednisone was discontinued and methotrexate continued. Patient was on methotrexate for a total of 2-3 years but he felt better overall and stopped the treatment. Over the years he was feeling reasonably well until about 2-3 years ago when he started having recurrent bilateral hip stiffness as well as pain and stiffness of his hands, fingers, right shoulder. He denies any other symptoms. Denies any skin rashes, denies fevers, shortness of breath, weight loss. Denies any history of DVT/PE. He is unaware of any family history of an autoimmune rheumatic disease. Denies history of psoriasis. 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 - [employer] Review of Systems Const Details: Review of Systems Constitutional: Denies fever, chills, weight loss ENT: Denies vision changes, eye pain or eye redness, dental caries, dry mouth GI: Denies nausea, vomiting, diarrhea, abdominal pain, change in BM Pulm: Denies SOB, TALBOT, hemoptysis, wheezing Cards: Denies chest pain, palpitations Skin: Denies Raynaud's, rash, nail changes, photosensitivity, BLOWER [employer] STOCK: Denies headaches, weakness, paresthesias, recurrent falls MSK: as per HPI All other systems reviewed and are unremarkable except noted above Physical Exam Exam Exam: Vital signs reviewed Physical Examination CONSTITUITIONAL Patient alert and cooperative. Well appearing and in no apparent painful distress MSK Hands Right Hand: Hands grossly swollen, able to make a fist but it is difficult. No tenderness to palpation of the MCPs, PIPs or DIPs. Left Hand: Hands grossly swollen, able to make a fist but it is difficult. No tenderness to palpation of the MCPs, PIPs or DIPs. Herbedens and Bouchards nodes noted bilaterally Wrists Right Wrist: Decreased ROM. Synovial hypertrophy. No TTP Left Wrist: Decreased ROM. Synovial hypertrophy. No TTP Elbows Right Elbow: Full ROM. No swelling or TTP. No TTP of the medial epicondyle. No TTP of the lateral epicondyle Left Elbow: Full ROM. No swelling or TTP. No TTP of the medial epicondyle. No TTP of the lateral epicondyle Shoulders Right shoulder: No swelling noted. No TTP of the AC joint. No TTP of the subacromial bursa. No TTP of the posterior shoulder Left shoulder: No swelling noted. No TTP of the AC joint. No TTP of the subacromial bursa. No TTP of the posterior shoulder Knees Right knee: Full ROM. No swelling noted. No TTP of the knee joint line. No TTP of pes anserine bursa Left knee: Full ROM. No swelling noted. No TTP of the knee joint line. No TTP of pes anserine bursa. Crepitations felt bilaterally Ankles Right ankle: Good ankle dorsiflexion and plantar flexion. No swelling. No TTP of the ankle joint Left ankle: Good ankle dorsiflexion and plantar flexion. No swelling. No TTP of the ankle joint Feet Right foot: Negative squeeze test Left foot: Negative squeeze test Tender points? No tenderness to palpation of the bilateral trapezius, supraspinatus, anterior costochondral junctions, bilateral suboccipital muscle insertions SKIN No rashes Vital Signs: Last Vital Signs Pulse 90 02/15/25 07:46 BP 140/80 H 02/15/25 07:46 Pulse Ox 96 02/15/25 07:46 Oxygen Delivery Method Room Air 02/15/25 07:46 BMI result Body Mass Index 31.1 Results Reviewed Results Reviewed: Laboratory Tests 01/14/25 12:20 WBC 5.4 RBC 4.03 L Hgb 12.3 L Hct 37.4 L Plt Count 257 ESR 7 Sodium 141 Potassium 3.6 Chloride 107 Carbon Dioxide 26 BUN 23 H Creatinine 1.09 AST 23 ALT 28 C-Reactive Protein 0.16 Laboratory Tests 10/24/23 01/14/25 11:19 12:20 Hep Bs Antigen Negative Hep Bs Antibody REACTIVE Hep B Core Total Ab Reactive Hepatitis C Ab (EIA) Nonreactive TB Test (T-Spot) Com Negative XR Bilateral Hands and Wrists 01/2025 FINDINGS: RIGHT HAND/WRIST: No fracture, dislocation, or suspicious bone lesion. There is normal alignment. There is no significant juxta-articular osteopenia. Degenerative appearing arthritis, moderate to severe, in the first CMC joint unchanged. Mild narrowing of the radiocarpal joint, unchanged. No blunting of the ulnar styloid. No definite carpal erosions identified. Minimal narrowing of the first and second MCP joints, without definite underlying MCP joint erosion. This is unchanged. Mild to moderate degenerative appearing arthritis throughout the DIP joints of the digits, and involving the interphalangeal joint of the thumb, stable in appearance. Very mild degenerative changes of the PIP joints of the digits. No gross periarticular erosions are identified in the digits. Normal-appearing soft tissues. LEFT HAND/WRIST: No fracture, dislocation, or suspicious bone lesion. There is normal alignment. There is no significant juxta-articular osteopenia. Similar appearing possible periarticular erosion of the second digit PIP joint. There may be subtle periarticular erosions in the third and fourth metacarpal heads. Degenerative appearing arthritis, moderate to severe, in the first CMC joint unchanged. Mild narrowing of the radiocarpal joint, unchanged. No blunting of the ulnar styloid. No definite carpal erosions identified. Minimal narrowing of the first and second MCP joints, without definite underlying MCP joint erosion. This is unchanged. Mild to moderate degenerative appearing arthritis throughout the DIP joints of the digits, and involving the interphalangeal joint of the thumb, stable in appearance. Very mild degenerative changes of the PIP joints of the digits. No gross periarticular erosions are identified in the digits. Normal-appearing soft tissues. IMPRESSION: 1. There are arthritic changes, predominantly degenerative in appearance, most severe in the first CMC joints as discussed. 2. Possible similar subtle periarticular erosion of the PIP joint of the second digit, right hand, as well as involving the third and fourth metacarpal heads. No definite additional periarticular erosions are evident bilaterally. There has been no significant interval change in the appearance of the hands and wrists when compared with the prior study (10/2023) XR L spine 01/2025 FINDINGS: S-shaped curvature of the lumbar spine. Bilateral facet joint hypertrophy at L4-5 and L5-S1. Multilevel endplate sclerosis. Decreased intervertebral disc height at L3-4, L4-5 and L5-S1 level. 6 mm anterolisthesis at L4-5. No spondylolysis pars interarticulares. No lytic or blastic lesions IMPRESSION: Grade 1 anterolisthesis L4-5 on a degenerative basis. Multilevel lower lumbar spondylosis XR Bilateral shoulders 01/2025 FINDINGS: RIGHT SHOULDER: Normal bone mineralization. No fracture, dislocation, or suspicious bone lesion. Normal alignment. The glenohumeral joint demonstrates mild arthritic changes. The AC joint demonstrates mild to moderate arthritic spurring. There is a type II acromion. No undersurface spurring. The subacromial space is preserved. Remainder of the soft tissue and bony structures appear normal. LEFT SHOULDER: Normal bone mineralization. No fracture, dislocation, or suspicious bone lesion. Normal alignment. The glenohumeral joint demonstrates mild arthritic changes. The AC joint demonstrates mild to moderate arthritic spurring. There is a type II acromion. No undersurface spurring. The subacromial space is preserved. Remainder of the soft tissue and bony structures appear normal. IMPRESSION: 1. Bilateral shoulders demonstrating mild arthritic changes in the glenohumeral joints, and mild to moderate spurring of the bilateral AC joints. There has been little interval change from 10/24/2023. XR T spine 01/2025 FINDINGS: Small marginal osteophyte formation at multiple is of the axial skeleton pronounced at C5-6 and C6-7 levels. No acute cortical disruption or gross malalignment. No lytic or blastic lesions. S-shaped curvature of the thoracic spine. IMPRESSION: Mild scoliosis versus positioning, thoracic spine. Multilevel spondylosis pronounced at C5-6 and C6-7 levels. Assessment & Plan Assessment & Plan (1) Rheumatoid arthritis: Comment: dx approx 2008 ttt MTX + prednisone for 2-3 years then lost to follow up MTX restarted 10/2023 Increased Mtx 01/2025 Code(s): M06.9 - Rheumatoid arthritis, unspecified Category: Medical Qualifiers: Rheumatoid arthritis location: multiple sites Rheumatoid factor presence: unspecified presence Qualified Code(s): M06.9 - Rheumatoid arthritis, unspecified Plan: #Seronegative RA Patient is a 64 y.o. male with seronegative RA here today for follow up. 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 Limit alcohol and avoid Bactrim ? Monitoring: ?CBC, BMP, LFTs every 3-4 months and hepatitis serologies as needed Plan I spent 30 minutes reviewing the record and labs, taking a history, examining the patient, discussing the treatment plan, ordering diagnostic work up and documenting in the medical record Coding Level of Care Code Est Pt Level 4 (99839) Complex EM visit Add On G2211 Diagnoses Rheumatoid arthritis involving multiple sites, unspecified whether rheumatoid factor present M06.9 Rheumatoid arthritis location: multiple sites Rheumatoid factor presence: unspecified presence care home methotrexate user Z79.631
[2025-02-15 07:46] VITALS: BP 140/80; PULSE 90; O2SAT 96; BMI 31.1
== END 2025-02-15 08:39 | disposition home or self-care (01) ==
LOC: HO.RHES 07:32
PROVIDERS: PCP Nurse Practitioner Family; Visit Provider Student in an Organized Health Care Education/Training Program
DX: M06.9 Rheumatoid arthritis, unspecified (principal); Z79.631 Long term (current) use of antimetabolite agent
CPT/HCPCS: 99214; G2211

== ENCOUNTER → 2025-02-15 07:31 | Outpatient (BNVA) | payer MEDICARE, MEDICAID, SELFPAY | PROVIDERS: PCP Nurse Practitioner Family; Visit Provider Student in an Organized Health Care Education/Training Program | DX: M06.9 Rheumatoid arthritis, unspecified (principal); Z79.631 Long term (current) use of antimetabolite agent | CPT/HCPCS: 99212 ==

== ENCOUNTER → 2025-02-24 07:49 | Outpatient (REF) | payer MEDICARE, MEDICAID, SELFPAY ==
--- NOTE | ~2025-02-24 | NM_ITS ---
EXERCISE MYOCARDIAL PERFUSION STUDY INDICATION: Abnormal EKG TECHNIQUE: The patient was brought in for an exercise perfusion study on 02/24/2025. Patient performed exercise as per Joel protocol and was injected 30 mCi of sestamibi once target heart rate was achieved. Images were obtained using the SPECT gamma camera interlaced with the gating device. Images were obtained in supine position. Resting perfusion study was performed on 02/28/2025. Patient was administered 30 mCi of sestamibi intravenously at rest. Images were then obtained in supine position. Total DLP 68 mGy-cm. Images were processed with the software and compared side to side in short axis, horizontal long axis and vertical long axis views. FINDINGS: Raw aquisition reviewed. The stress perfusion study showed mildly decreased tracer uptake in the basal part of inferior wall. There is improvement with CT attenuation correction suggestive of diaphragmatic attenuation artifact. The gated study shows mildly decreased LV systolic function with calculated LVEF of 45%. LV cavity is normal in size. The gated study shows normal wall thickening and contraction of segments. Resting study shows no significant perfusion abnormality. Gating at rest reveals normal wall motion with ejection fraction at 47%. The findings are consistent with mild reversible basal inferior defect, probably artifactual. NM/NM cardiolite stress test IMPRESSION: 1. Myocardial perfusion imaging study shows no clear evidence of ischemia or infarction. 2. Gated LVEF is 45% during stress and 47% during rest, but visually appears higher. Correlate with echocardiogram. 3. Transient ischemic dilatation not present. EKG component of the test reported separately. Electronically signed by: Bennett Grimaldo MD 02/28/2025 04:00 PM EDT
--- OUTSIDE RECORDS SUMMARY | 2025-02-24 07:51 | XMS_ITS | Encounter Summary ---
Author Organization [employer] Address [address] [facility] [address] [place] [address] Care Team Providers Care Seed Sales Manager Name Role Phone Citlali Tee NP Primary Care Provider [phone] Reason for Visit * Reason Onset Date Comments Med Refill 09/06/2024 Encounter Details Date Type Department Care Team (Late st Contact Info) Description 09/06/2024 Refill [facility] [address] [place], [place] [phone] Sarah Mukherjee NP [address] [place], [place] [phone] Arthralgia of both hands Social History Tobacco [...] documented as of this encounter Care Teams Seed Sales Manager Relationship Specialty Start Date End Date Citlali Tee NP [address] [place] [id number] PCP - General Family Medicine 07/14/23 documented as of this encounter
--- NOTE | 2025-02-24 07:52 | CA_ITS ---
Acquisition Time: 2025-02-24 09:20:18 Total Exercise Time: 00:05:45 Test Indications: abn ekg Medications: see h&p Protocol: KATHY Max HR: 153 BPM 98% of Pred: 155 BPM Max BP: 184/68 mmHG Max Work Load: 7.0 METS Exercise stress test with exercise 5 mins 45 secs of Kathy Protocol, achieving 98% MPHR, with reports of SOB and fatigue, no chest pain, with isolated PACs, with normotensive response to exercise. With downsloping ST depression inferiorly and in leads V5-V6 meeting criteria for ischemia. In recovery, breathing improved and pt feeling back to baseline. ST segment improved. Nuclear images pending. Test reviewed with Dr. Pal. Referred By: Zheng Pal Electronically Signed By: Kwabena Paul
--- NOTE | 2025-02-24 07:52 | CA_ITS ---
Transthoracic Echocardiogram Patient (Last, First, Middle): Ag Gill H Gender: Male Date of : 1960 Age: 64 Procedure Date: 02/24/2025 Procedure Type: Transthoracic Echocardiogram Location: OP Height: 165.1 cm Weight: 83.92 kg BSA: 1.91 m2 Heart Rate: 79 bpm BP: 132 / 70 mmHg Napper Runner: SB/RC Referring MD: Zheng Pal MD Bowling Ball Marker: Zheng Pal MD Symptoms: R94.31 - Abnormal electrocardiogram [ECG] [EKG] Study Quality: Adequate ECG Rhythm: Sinus Conclusions: - 1. Normal LV ejection fraction 55-60% with mild LVH with elevated filling pressures 2. Normal cardiac valvular Dopplers 3. No gross pericardial effusion Findings Left Ventricle Normal left ventricular size and systolic function. There is mildly increased left ventricular wall thickness. The visually estimated ejection fraction is between 55-60%. Spectral Doppler is indicative of an impaired relaxation filling pattern. Elevated filling pressures. E/E prime ratio is >15, consistent with elevated filling pressures. Peak GLS is -13.*%, moderately reduced. Right Ventricle Normal right ventricular cavity size and systolic function. Atria Both atria are normal in size. There is lipomatous hypertrophy of the interatrial septum. There is no evidence of interatrial shunt. Aortic Valve Normal aortic valve structure and function. There is no aortic valve stenosis. There is no aortic valve regurgitation. Mitral Valve Normal mitral valve structure and function. There is trace mitral valve regurgitation. There is no mitral valve stenosis. Pulmonic Valve The pulmonic valve is likely normal. There is trace pulmonic valve regurgitation. Tricuspid Valve Normal tricuspid valve structure. Tricuspid regurgitation envelope is inadequate for calculation of right ventricular systolic pressure. Normal right atrial pressure. Great Vessels All visible segments of the aorta are normal in size. The pulmonary artery was not well visualized. There is no dilatation of the ascending aorta measuring 3.10 cm. Venous The inferior vena cava is normal in size and collapses greater than 50% with inspiration. Pericardium/Pleural There is no evidence of pericardial effusion. Prior Study Comparison No prior study available for comparison. Measurements 2D Linear Measurements IVSd: 1.30 0.6-0.9/0.6-1.0 cm LVIDd: 3.81 3.9-5.3/4.2-5.9 cm LVIDd Index: 1.99 2.4-3.2/2.2-3.1 cm/m2 LVIDs: 2.56 2.0-3.6 cm LVPWd: 1.26 0.7-1.1 cm LA Diam: 3.10 2.7-3.8/3.0-4.0 cm LAIDs Index: 1.62 1.5-2.3 cm/m2 LV Mass: 156.08 67-162/88-224 g LV Mass Index: 81.71 43-95/49-115 g/m2 LVOT Diam: 2.00 3.0+(-)1.3 cm 2D Systolic Function EF 4C: 55.00 >55% EF 2C: 57.80 >55% EF BiP: 55.40 >55% Mitral Valve MV Pk E: 0.69 MV PK A: 0.93 MV Decel Time: 224.00 E/A: 0.70 E'Lateral: 4.24 E'Medial: 3.48 E/E' Med: 19.70 E/E' Lat: 16.20 PHT: 66.00 MVA PHT: 3.33 Decel Page: 3.06 Aortic Valve AoV Pk Roman: 1.35 AoV Mn Roman: 0.95 AoV VTI: 0.28 AoV Pk Grad: 7.00 Aov Mn Grad: 4.00 TOM Cont.VTI: 2.62 LVOT LVOT Pk Roman: 1.18 LVOT Mn Roman: 0.75 LVOT VTI: 0.24 LVOT Pk Grad: 6.00 LVOT Mn Grad: 3.00 LVOT Diam: 2.00 LVOT Area: 3.14 Diastolic Function MV Pk E: 0.69 MV Pk A: 0.93 E/A: 0.70 E'Medial: 3.48 E/E' Med: 19.70 E' Laterial: 4.24 E/E' Lat: 16.20 Right Ventricle TAPSE (mm): 18.20 TVS' Roman: 12.40 Tricuspid Valve RA Press: 3.00 Great Vessels Aorta Sinus of Valsalva: 3.20 2.0-3.5 cm Ao Asc: 3.10 2.1-3.4 cm Pulmonary Veins Pulm Vein S/D 1.40 Pulmonary Valve PV Pk Roman: 0.79 Peak PV Grad: 2.00 Updated in Other Vendor System with Status of Final Zheng Pal MD electronically signed on 02/25/2025 12:45:50 PM with status of Final
--- OUTSIDE RECORDS SUMMARY | 2025-02-24 07:52 | XMS_ITS | Encounter Summary ---
Author Organization [employer] Address [address] [facility] [address] [place] [address] Care Team Providers Care Hydraulic Controls Technician Name Role Phone Citlali Tee JANE Primary Care Provider [phone] Encounter Details Date Type Department Care Team (Late st Contact Info) Description 12/26/2023 Orders Only [facility] [address] [place] [address] Provider, MD Claude Social History Tobacco Use [...] documented as of this encounter Care Teams Hydraulic Controls Technician Relationship Specialty Start Date End Date Citlali Tee NP [address] [place] [address] PCP - General Family Medicine 07/14/23 documented as of this encounter
--- OUTSIDE RECORDS SUMMARY | 2025-02-24 07:52 | XMS_ITS | Clinical Summary ---
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
--- OUTSIDE RECORDS SUMMARY | 2025-02-24 07:52 | XMS_ITS | Encounter Summary ---
Author Organization [employer] Address [address] [place] [address] Care Team Providers Care Commercial Leasing Agent Name Role Phone Estelle Cain GINI Primary Care Provider [phone] Citlali Tee AQUACULTURE WORKER Primary Care Provider [phone] Encounter Details Date Type Department Care Team (Late st Contact Info) Description 04/16/2023 Orders Only [facility] [address] [place] [address] Susan Pimentel LPN Social History Tobacco Use [...] FACTOR Routine 10/24/2023 11: 19 AM EDT [id number] ENZYME Routine 10/24/2023 11:19 AM EDT [...] IMMUNOGLOBULIN G 1340 600 - 1540 mg/dL [facility] IMMUNOGLOBULIN A 233 70 - 320 mg/dL [facility] Immunoglobulin M 84 50 - 300 mg/dL [facility] Comment:THIS TEST WAS PERFOR MED AT:[facility] [place] [phone] BLANCHARD MD Immunofixation Result SEE NOTE [facility] Comment:Normal pattern. No m onoclonal proteins detected. 10/24/2023 11:1 9 AM EDT 10/24/2023 11:19 AM EDT us Generic External Data Provider LAB BLOOD ORDERAB LES Final Result [facility] [address] [place] [phone] * (ABNORMAL) Angiotensin -1- Converting Enzyme (10/24/2023 11:19 AM EDT) Pathologist [facility] Angiotensin Converting Enzyme 70(A) 9 - 67 U/L [facility] Comment:THIS TEST WAS PERFOR MED AT:[email or web address] [place] [address]BKQQMQQTYLER DU MD,PHD 10/24/2023 11:1 9 AM EDT 10/24/2023 11:19 AM EDT us Generic External Data Provider LAB BLOOD ORDERAB LES Final Result [facility] [address] [place] [phone] * (ABNORMAL) Protein Electrophoresis and E. Lopez/Lambda Light Chains (10/24/2023 11:19 AM EDT) Pathologist [facility] Prot Elec - Total Protein 8.2(A) 6.1 - 8.1 g/dL [facility] Prot Elec - Albumin 4.7 3.8 - 4.8 g/dL [facility] Prot Elec - Alpha1 0.3 0.2 - 0.3 g/dL [facility] Prot Elec - Alpha2 0.8 0.5 - 0.9 g/dL [facility] Prot Elec - Beta 1 0.6 0.4 - 0.6 g/dL [facility] Prot Elec - Beta 2 0.3 0.2 - 0.5 g/dL [facility] Prot Elec - Gamma 1.5 0.8 - 1.7 g/dL [facility] PES - Abn Protein Band 1 [facility] PES-Abn Protein Band 2 [facility] PES-Abn Protein Band 3 [facility] Prot Elec - Interpretation SEE NOTE [facility] Comment:Normal Serum Protein Electrophoresis Pattern.No abnormal protein bands (M-protein) detected.THIS TEST WAS PERFORMED AT:[facility] [place] [phone] BLANCHARD MD 10/24/2023 11:1 9 AM EDT 10/24/2023 11:19 AM EDT us Generic External Data Provider LAB BLOOD ORDERAB LES Final Result [facility] [address] [place] [phone] [phone] * SHERYL Screen,IFA, with Reflex to Titer and Pattern (10/24/2023 11:19 AM EDT) Anti Nuclear Antibody Screen NEGATIVE NEGATIVE [facility] Comment:SHERYL IFA is a first [...] clinicallysuspected inflammatory myopathies.AC-0: NegativeInternational Consensus on SHERYL Patterns(https://doi.org/10.1515/yulg-0980-5793)For additional information, please refer tohttp://education.Legal Shine/faq/TSE031(This link is being provided for informational/educational purposes only.)THIS TEST WAS PERFORMED AT:[facility] [place] [phone] BLANCHARD MD SHERYL Titer TNP [facility] SHERYL Pattern TNP [facility] SHERYL TITER 2 (REF LAB) TNP [facility] SHERYL Pattern 2 TNP [facility] SH[facility]L PATTERN 3 [facility] 10/24/2023 11:1 9 AM EDT 10/24/2023 11:19 AM EDT Generic External Data Provider LAB BLOOD ORDERAB LES Final Result Performing Organization Address [facility] Co de Phone Number [facility] [address] [place] [phone] * Cyclic Citrullinated Peptide (CCP) Antibody (IgG) (10/24/2023 11:19 AM EDT) Pathologist [facility] Cyclic Citrullinated Peptide <16 UNITS [facility] Comment:Reference RangeNegat travis: <20Weak Positive: 20-39Moderate Positive: 40-59Strong Positive: >59THIS TEST WAS PERFORMED AT:[facility] [place] [phone] BLANCHARD MD 10/24/2023 11:1 9 AM EDT 10/24/2023 11:19 AM EDT Generic External Data Provider LAB BLOOD ORDERAB LES Final Result Performing Organization Address [facility] de Phone Number [facility] [address] [place] [phone] * HIV-1/2 Antigen and Antibodies, Fourth Generation, with Reflexes (10/24/2023 11:19 AM EDT) [facility] HIV AB/AG Nonreactive Nonreactive [facility] Comment:HIV-1 p24 Ag and/or HIV-1/HIV-2 Ab not detected.A test result that is nonreactive does not exclude thepossibility of exposure to or infection with HIV-1 and/orHIV-2. Nonreactive results in this assay for individualswith prior exposure to HIV-1 and/or HIV-2 may be due toantigen and antibody levels that are below the limit ofdetection of this assay.The [employer] High[employer] HIV Ag/Ab Combo assay result andsupplemental assay results should be interpreted inconjunction with the patient's clinical presentation,history and other laboratory results. If the results areinconsistent with clinical evidence, additional testing issuggested to confirm the result. 10/24/2023 11:1 9 AM EDT 10/24/2023 11:19 AM EDT Generic External Data Provider LAB BLOOD ORDERAB LES Final Result Performing Organization Address [facility] Co de Phone Number [facility] [address] [place] [phone] * Hepatitis Panel, General (10/24/2023 11:19 AM EDT) Pathologist [facility] Hepatitis A IgM Nonreactive Nonreactive [facility] Comment:IgM antibodies to PITTS V not detected; does not exclude earlyacute or recovered HAV infection. ~Hepatitis B Surface Antibody REACTIVE Nonreactive [facility] Comment:REACTIVE: > 11.99 mI U/mL Hepatitis B Core Antibody Reactive Nonreactive [facility] Comment:Presumptive evidence of anti-HBc. Hepatitis C Antibody Nonreactive Nonreactive [facility] Comment:Antibodies to HCV no t detected; does not exclude early acuteHCV infection. Hepatitis B Surface Ag Negative Negative [facility] 10/24/2023 11:1 9 AM EDT 10/24/2023 11:19 AM EDT [employer] External Data Provider LAB BLOOD ORDERAB LES Final Result Performing Organization Address [facility] de Phone Number [facility] [address] [place] [phone] * T-SPOT??.TB (10/24/2023 11:19 AM EDT) Pathologist [facility] T Spot TB Negative Negative [facility] Comment:A negative test resu lt [...] as aquantitative test. TS PANEL A 0 [facility] TS PANEL B 0 [facility] Negative Control Passed [facility] Positive Control Passed [facility] Comment:For additional infor matumair, please refer tohttp://education.Safety Hound/faq/GLP442(This link is being provided for informational/educational purposes only.)THIS TEST WAS PERFORMED AT:[email or web address] [email or web address] [place] [address]UXDQRWMTYLER DU MD,PHD 10/24/2023 11:1 9 AM EDT 10/24/2023 11:19 AM EDT us Generic External Data Provider LAB BLOOD ORDERAB LES Final Result Performing Organization Address City/[facility]/ZIP Co de Phone Number [facility] [address] [place] [phone] * Sed Rate by Modified Vikergren (10/24/2023 11:19 AM EDT) Erythrocyte Sedimentation Rate 7 0 - 15 MM/HR [facility] Comment:Patients with polycy themia and many hemoglobin abnormalitiesmay have depressed sed rates whereas patients with anemiamay have elevated sed rates. 10/24/2023 11:1 9 AM EDT 10/24/2023 11:19 AM EDT us Generic External Data Provider LAB BLOOD ORDERAB LES Final Result Performing Organization Address [facility]/ZIP Co de Phone Number [facility] [address] [place] [phone] * C-reactive Protein (10/24/2023 11:19 AM EDT) C Reactive Protein 0.16 < or = 0.50 mg/dL [facility] 10/24/2023 11:1 9 AM EDT 10/24/2023 11:19 AM EDT us Generic External Data Provider LAB BLOOD ORDERAB LES Final Result [facility] [address] [place] [phone] * (ABNORMAL) Comprehensive Metabolic Panel (10/24/2023 11:19 AM EDT) Sodium 140 135 - 145 mmol/L [facility] Potassium 3.7 3.3 - 5.1 mmol/L [facility] Chloride 107 96 - 108 mmol/L [facility] Carbon Dioxide 28 22 - 29 mmol/L [facility] Anion Gap 9(L) 12 - 20 [facility] Urea Nitrogen (BUN) 18(H) 9 - 16 mg/dL [facility] Creatinine, Serum 0.99 0.5 - 1.4 mg/dL [facility] Estimated Glomerular Filt Rate >60 [facility] Comment:NOTE: For -Am erican individuals, multiply the result by 1.210.Chronic Kidney Disease: Estimated GFR < 60 mL/min/1.05v7Uteqvr Kidney Disease: Estimated GFR < 15 mL/min/1.73m2 Glucose 105 60 - 115 mg/dL [facility] Calcium 11.3(H) 8.4 - 10.2 mg/dL [facility] Bilirubin, Total 0.5 0.0 - 1.0 mg/dL [facility] Aspartate Amino Transferase 28 5 - 37 U/L [facility] Alanine Aminotransferase 22 0 - 40 U/L [facility] Total Protein 7.8 6.5 - 8.0 g/dL [facility] Albumin Level 4.5 3.5 - 5.0 g/dL [facility] Alkaline Phosphatase 74 39 - 117 U/L [facility] 10/24/2023 11:1 9 AM EDT 10/24/2023 11:19 AM EDT us Generic External Data Provider LAB BLOOD ORDERAB LES Final Result Performing Organization Address [facility] Co de Phone Number [facility] [address] [place] [phone] * Rheumatoid Factor (10/24/2023 11:19 AM EDT) Rheumatoid Factor <13.0 <15.0 IU/mL [facility] 10/24/2023 11:1 9 AM EDT 10/24/2023 11:19 AM EDT us Generic External Data Provider LAB BLOOD ORDERAB LES Final Result Performing Organization Address [facility] Co ar Phone Number [facility] [address] [place] [phone] * Hemoglobin A1c (10/24/2023 11:19 AM [...] patient sample. Estimated Average Glucose 111 mg/dL [facility] Comment:eAG = Estimated ave rage glucose which is %A1C expressed asaverage glucose, using the formula of the O7P-FzadzlbMjuqgkq Glucose study (ADAG), Diabetes Care, Vol.31,#8,Dec. 2007 10/24/2023 11:1 9 AM EDT 10/24/2023 11:19 AM EDT us Generic External Data Provider LAB BLOOD ORDERAB LES Final Result Performing Organization Address [facility]/ZIP Co de Phone Number [facility] [address] [place] [phone] * (ABNORMAL) CBC auto differential (10/24/2023 11:19 AM EDT) White Blood Count 4.4(L) 4.8 - 10.8 X10*3/uL [facility] Red Blood Count 4.15(L) 4.60 - 5.80 X10*6/uL [facility] Hemoglobin 12.4(L) 14.0 - 18.0 g/dl [facility] Hematocrit 37.7(L) 42.0 - 52.0 % [facility] Mean Corpuscular Volume 90.8 80.0 - 98.0 fL [facility] Mean Corpuscular Hemoglobin 29.9 27.0 - 33.0 pg [facility] Mean Corpuscular HGB Conc 32.9 31.0 - 36.0 g/dl [facility] Red Cell Distribution Width 12.7 11.0 - 16.0 % [facility] Platelet Count 277 160 - 400 X10*3/uL [facility] Mean Platelet Volume 10.3 9.4 - 12.4 fL [facility] Neutrophils Percent Auto 50.4 45 - 73 % [facility] Imm Gran Pct Auto 0.5(H) 0.0 - 0.4 % [facility] Lymphocytes Percent Auto 33.9 20 - 40 % [facility] Monocytes Percent Auto 10.0 2 - 11 % [facility] Eosinophils Percent Auto 4.3(H) 0 - 4 % [facility] Basophils Percent Auto 0.9 0 - 2 % [facility] NRBC Pct Auto 0.0 0.0 - 0.2 /100WBC [facility] Neutrophils Absolute Auto 2.2 2.0 - 8.3 x10*3/uL [facility] Imm Gran Abs Auto 0.02 0.00 - 0.03 X10*3/uL [facility] Lymphocytes Absolute Auto 1.5 1.2 - 4.9 X10*3/uL [facility] Monocytes Absolute Auto 0.4 0.1 - 1.2 X10*3/uL [facility] Eosinophils Absolute Auto 0.2 0.0 - 0.4 X10*3/uL [facility] Basophils Absolute Auto 0.0 0.0 - 0.2 X10*3/uL [facility] NRBC Abs Auto 0.000 0.0 - 0.012 X10*3/uL [facility] 10/24/2023 11:1 9 AM EDT 10/24/2023 11:19 AM EDT us Generic External Data Provider LAB BLOOD ORDERAB LES Final Result Performing Organization Address City/State/[facility] Co de Phone Number [facility] [address] [place] [phone] documented in this encounter Visit Diagnoses Not on filedocumented in this encounter Care Teams Commercial Leasing Agent Relationship Specialty Start Date End Date Estelle Cain ANP [address] [place] [address] PCP - General Family Medicine 12/26/21 07/13/23 Citlali Tee NP [address] [place] [phone] PCP - General Family Medicine 07/14/23 documented as of this encounter
--- OUTSIDE RECORDS SUMMARY | 2025-02-24 07:52 | XMS_ITS | Clinical Summary ---
Author Organization [employer] Address [address] [place] [address] Care Team Providers Care Radiotelegraphist Name Role Phone Citlali Tee JANE Primary Care Provider [phone] Allergies Active Allergy Reactions Criticality Noted Date [...] ng right hip with positive rheumatoid factor ([facility]) 08/10/2024 Assessment & Plan (08/12/2024 6:47 PM [...] Department Care Team Description 01/28/2025 Orders Only [facility] External Provider, [facility] 01/14/2025 Orders Only GENERIC EXTERNAL DATA DEPARTMENT Provider, Generic External Data 01/07/2025 Orders Only GENERIC EXTERNAL DATA DEPARTMENT Provider, Generic External Data 12/06/2024 Refill [facility] [address] [place] [address] Citlali Tee, JANE Other hyperlipidemia from Last [...] AM EDT Narrative 01/28/2025 11:40 AM EDT [place] [address] XRay Report Signed Patient: Ag Gill MR#: [id number] 185 : 1960 Acct:[id number] Age/Sex: 64 / M ADM Date: 01/28/25 Loc: TIM Attending Dr: Autumn Patel MD Ordering Physician: Cher Tellez MD Date of Service: 01/28/25 Procedure(s): XR Hand Bilat min 3v Accession Number(s): [id number] cc: Cher Tellez MD; Citlali Tee NP [...] 01/28/25 1137 DD/ 1055 TD/TT: 01/28/25 1107 Cardiovascular Lab Director: Procedure Note Donotuseinterpreter, Image - 01/28/[address] [address] XRay Report Signed Patient: Ag Gill HMR#: [id number] 185 : 9Acct:[id number] Age/Sex: 64 / MADM Date: 01/28/25 Loc: HO.XRAY Attending Dr: Autumn Patel MD Ordering Physician: Cher Tellez MD Date of Service: 01/28/25 Procedure(s): XR Hand Bilat min 3v Accession Number(s): [id number] cc: Cher Tellez MD; Citlali Tee NP [...] 01/28/25 1137 DD/ 1055 TD/TT: 01/28/25 1107 Cardiovascular Lab Director: [facility] External Provider IMG XR PROCEDURES Final Result * XR Wrist 3+ Views Bilateral (01/28/2025 10:42 AM EDT) Anatomical Region Laterality Modality Upper Extremities, Wrist Bilateral Radiogr aphic Imaging 01/28/2025 10:4 2 AM EDT Narrative 01/28/2025 11:40 AM EDT [address] [address] XRay Report Signed Patient: Ag Gill MR#: [id number] 185 : 1960 Acct:[id number] Age/Sex: 64 / M ADM Date: 01/28/25 Loc: CYNTHIAAY Attending Dr: Autumn Patel MD Ordering Physician: Cher Tellez MD Date of Service: 01/28/25 Procedure(s): XR Wrist Joel min 3V Accession Number(s): [id number] cc: Cher Tellez MD; Citlali Tee NP [...] 01/28/25 1137 DD/ 1042 TD/TT: 01/28/25 1107 Cardiovascular Lab Director: Procedure Note Donotuseinterpreter, Image - 01/28/[address] [address] XRay Report Signed Patient: Ag Gill R#: [id number] 185 : 9Acct:[id number] Age/Sex: 64 / MADM Date: 01/28/25 Loc: HO.CYNTHIAAY Attending Dr: Autumn Patel MD Ordering Physician: Cher Tellez MD Date of Service: 01/28/25 Procedure(s): XR Wrist Joel min 3V Accession Number(s): [id number] cc: Cher Tellez MD; Citlali Tee NP [...] 01/28/25 1137 DD/ 1042 TD/TT: 01/28/25 1107 Cardiovascular Lab Director: us [facility] External Provider IMG XR PROCEDURES Final Result * XR Lumbar Spine Complete 4+ Views (01/28/2025 10:42 AM EDT) Anatomical Region Laterality Modality Spine, L-spine Radiographic Mary ging 01/28/2025 10:4 2 AM EDT Narrative 01/28/2025 11:17 AM EDT [address] [address] XRay Report Signed Patient: Ag Gill MR#: [id number] 185 : 1960 Acct:[id number] Age/Sex: 64 / M ADM Date: 01/28/25 Loc: TIM Attending Dr: Autumn Patel MD Ordering Physician: Cher Tellez MD Date of Service: 01/28/25 Procedure(s): XR lumbar spine 4V min Accession Number(s): [id number] cc: Cher Tellez MD; Citlali Tee NP [...] 01/28/25 1114 DD/ 1042 TD/TT: 01/28/25 1107 Cardiovascular Lab Director: Procedure Note Donotuseinterpreter, Image - 01/28/[address] [address] XRay Report Signed Patient: Ag Gill HMR#: [id number] 185 : 9Acct:[id number] Age/Sex: 64 / MADM Date: 01/28/25 Loc: HO.XRAY Attending Dr: Autumn Patel MD Ordering Physician: Cher Tellez MD Date of Service: 01/28/25 Procedure(s): XR lumbar spine 4V min Accession Number(s): [id number] cc: Cher Tellez MD; Citlali Tee NP [...] 01/28/25 1114 DD/ 1042 TD/TT: 01/28/25 1107 Cardiovascular Lab Director: [facility] External Provider IMG XR PROCEDURES Final Result * XR Shoulder 2+ Views Bilateral (01/28/2025 10:39 AM EDT) Anatomical Region Laterality Modality Upper Extremities, Shoulder Bilateral Radi ographic Imaging 01/28/2025 10:3 9 AM EDT Narrative 01/28/2025 11:28 AM EDT [address] [address] XRay Report Signed Patient: Ag Gill MR#: [id number] 185 : 1960 Acct:[id number] Age/Sex: 64 / M ADM Date: 01/28/25 Loc: HO.CYNTHIAAY Attending Dr: Autumn Patel MD Ordering Physician: Cher Tellez MD Date of Service: 01/28/25 Procedure(s): XR Shoulder Joel min 2V Accession Number(s): [id number] cc: Cher Tellez MD; Citlali Tee NP [...] 01/28/25 1125 DD/ 1039 TD/TT: 01/28/25 1107 Cardiovascular Lab Director: Procedure Note Donotceleinterpreter, Image - 01/28/2025 [place] [address] XRay Report Signed Patient: Ag Gill HMR#: [id number] 185 : 9Acct:[id number] Age/Sex: 64 / MADM Date: 01/28/25 Loc: TIM Attending Dr: Autumn Patel MD Ordering Physician: Cher Tellez MD Date of Service: 01/28/25 Procedure(s): XR Shoulder Joel min 2V Accession Number(s): [id number] cc: Cher Tellez MD; Citlali Tee NP [...] 01/28/25 1125 DD/ 1039 TD/TT: 01/28/25 1107 Cardiovascular Lab Director: [facility] External Provider IMG XR PROCEDURES Final Result * XR Thoracic Spine 3 Views (01/28/2025 10:38 AM EDT) Anatomical Region Laterality Modality Spine, T-spine Radiographic Mary ging 01/28/2025 10:3 8 AM EDT Narrative 01/28/2025 11:14 AM EDT [place] [address] XRay Report Signed Patient: Ag Gill MR#: [id number] 185 : 1960 Acct:[id number] Age/Sex: 64 / M ADM Date: 01/28/25 Loc: TIM Attending Dr: Autumn Patel MD Ordering Physician: Cher Tellez MD Date of Service: 01/28/25 Procedure(s): XR thoracic spine 3V Accession Number(s): [id number] cc: Cher Tellez MD; Citlali Tee NP [...] 01/28/25 1111 DD/ 1038 TD/TT: 01/28/25 1107 Cardiovascular Lab Director: Procedure Note Donotuseinterpreter, Image - 01/28/2025 [place] [address] XRay Report Signed Patient: Ag Gill HMR#: [id number] 185 : 1960cct:[id number] Age/Sex: 64 / MADM Date: 01/28/25 Loc: HO.XRAY Attending Dr: Autumn Patel MD Ordering Physician: Cher Tellez MD Date of Service: 01/28/25 Procedure(s): XR thoracic spine 3V Accession Number(s): [id number] cc: Cher Tellez MD; Citlali Tee NP [...] 01/28/25 1111 DD/ 1038 TD/TT: 01/28/25 1107 Cardiovascular Lab Director: us [facility] External Provider IMG XR PROCEDURES Final Result * Hepatitis B, C Profile (01/14/2025 12:20 PM EDT) Pathologist [facility] ~Hepatitis B Surface Antibody REACTIVE Nonreactive [facility] Comment:REACTIVE: > 11.99 mI U/mL Hepatitis B Core Antibody Reactive Nonreactive [facility] Comment:Presumptive evidence of anti-HBc. Hepatitis C Antibody Nonreactive Nonreactive [facility] Comment:Antibodies to HCV no t detected; does not exclude early acuteHCV infection. Hepatitis B Surface Ag Negative Negative [facility] 01/14/2025 12:2 0 PM EDT 01/14/2025 12:20 PM EDT us Generic External Data Provider LAB BLOOD ORDERAB LES Final Result [facility] [address] [place] [phone] * (ABNORMAL) CBC auto differential (01/14/2025 12:20 PM EDT) Pathologist [facility] White Blood Count 5.4 4.8 - 10.8 X10*3/uL [facility] Red Blood Count 4.03(L) 4.60 - 5.80 X10*6/uL [facility] Hemoglobin 12.3(L) 14.0 - 18.0 g/dl [facility] Hematocrit 37.4(L) 42.0 - 52.0 % [facility] Mean Corpuscular Volume 92.8 80.0 - 98.0 fL [facility] Mean Corpuscular Hemoglobin 30.5 27.0 - 33.0 pg [facility] Mean Corpuscular HGB Conc 32.9 31.0 - 36.0 g/dl [facility] Red Cell Distribution Width 13.5 11.0 - 16.0 % [facility] Platelet Count 257 160 - 400 X10*3/uL [facility] Mean Platelet Volume 10.4 9.4 - 12.4 fL [facility] Neutrophils Percent Auto 62.1 45 - 73 % [facility] Imm Gran Pct Auto 0.6(H) 0.0 - 0.4 % [facility] Lymphocytes Percent Auto 24.8 20 - 40 % [facility] Monocytes Percent Auto 8.6 2 - 11 % [facility] Eosinophils Percent Auto 3.3 0 - 4 % [facility] Basophils Percent Auto 0.6 0 - 2 % [facility] NRBC Pct Auto 0.0 0.0 - 0.2 /100WBC [facility] Neutrophils Absolute Auto 3.4 2.0 - 8.3 x10*3/uL [facility] Imm Gran Abs Auto 0.03 0.00 - 0.03 X10*3/uL [facility] Lymphocytes Absolute Auto 1.4 1.2 - 4.9 X10*3/uL [facility] Monocytes Absolute Auto 0.5 0.1 - 1.2 X10*3/uL [facility] Eosinophils Absolute Auto 0.2 0.0 - 0.4 X10*3/uL [facility] Basophils Absolute Auto 0.0 0.0 - 0.2 X10*3/uL [facility] NRBC Abs Auto 0.000 0.0 - 0.012 X10*3/uL [facility] 01/14/2025 12:2 0 PM EDT 01/14/2025 12:20 PM EDT us Generic External Data Provider LAB BLOOD ORDERAB LES Final Result [facility] [address] [place] [phone] * Sed Rate by Modified Lonnie [...] Organization Address City/[facility]/ZIP Co de Phone Number [facility] [address] [place] [phone] * C-reactive Protein (01/14/2025 12:20 PM EDT) C Reactive Protein 0.16 < or = 0.50 mg/dL [facility] 01/14/2025 12:2 0 PM EDT 01/14/2025 12:20 PM EDT [employer] External Data Provider LAB BLOOD ORDERAB LES Final Result Performing Organization Address [facility] Co de Phone Number [facility] [address] [place] [phone] * (ABNORMAL) Comprehensive Metabolic Panel (01/14/2025 12:20 PM EDT) Pathologist [facility] Sodium 141 135 - 145 mmol/L [facility] Potassium 3.6 3.3 - 5.1 mmol/L [facility] Chloride 107 96 - 108 mmol/L [facility] Carbon Dioxide 26 22 - 29 mmol/L [facility] Anion Gap 12 12 - 20 [facility] Urea Nitrogen (BUN) 23(H) 9 - 16 mg/dL [facility] Creatinine, Serum 1.09 0.5 - 1.4 mg/dL [facility] Estimated Glomerular Filt Rate >60 [facility] Comment:Chronic Kidney Disea se: Estimated GFR < 60 mL/min/1.38c7Enybox Kidney Disease: Estimated GFR < 15 mL/min/1.73m2 Glucose 147(H) 60 - 115 mg/dL [facility] Calcium 10.6(H) 8.4 - 10.2 mg/dL [facility] Bilirubin, Total 0.3 0.0 - 1.0 mg/dL [facility] Aspartate Amino Transferase 23 5 - 37 U/L [facility] Alanine Aminotransferase 28 0 - 40 U/L [facility] Total Protein 7.6 6.5 - 8.0 g/dL [facility] Albumin Level 4.5 3.5 - 5.0 g/dL [facility] Alkaline Phosphatase 95 39 - 117 U/L [facility] 01/14/2025 12:2 0 PM EDT 01/14/2025 12:20 PM EDT us Generic External Data Provider LAB BLOOD ORDERAB LES Final Result Performing Organization Address [facility] Co de Phone Number [facility] [address] [place] [phone] * (ABNORMAL) Basic Metabolic Panel (01/07/2025 9:33 AM EDT) Sodium 141 135 - 145 mmol/L [facility] Potassium 3.7 3.3 - 5.1 mmol/L [facility] Chloride 107 96 - 108 mmol/L [facility] Carbon Dioxide 27 22 - 29 mmol/L [facility] Anion Gap 11(L) 12 - 20 [facility] Urea Nitrogen (BUN) 17(H) 9 - 16 mg/dL [facility] Creatinine, Serum 0.96 0.5 - 1.4 mg/dL [facility] Estimated Glomerular Filt Rate >60 [facility] Comment:Chronic Kidney Disea se: Estimated GFR < 60 mL/min/1.47d1Xpnqki Kidney Disease: Estimated GFR < 15 mL/min/1.73m2 Glucose 106 60 - 115 mg/dL [facility] Calcium 10.5(H) 8.4 - 10.2 mg/dL [facility] 01/07/2025 9:33 AM EDT 01/07/2025 9:33 AM EDT us Generic External Data Provider LAB BLOOD ORDERAB LES Final Result Performing Organization Address City/[facility]/ZIP Co de Phone Number [facility] [address] [place] [phone] * Hemoglobin A1c (03/08/2024 9:40 AM EST) Hemoglobin A1c 5.7 <6.0 % [facility] Comment:Hemoglobin A1C Refer ence Range Adults: 4.8 - 6.0 % Non diabetic: < 6.0 % Goal: < 7.0 %Additional Action Suggested: > 8.0 %Note: Hemoglobin A1c results are invalid for patients with abnormal amounts of HbF. Blood transfusions may impact the HbA1c concentration in the patient sample. Estimated Average Glucose 117 mg/dL [facility] Comment:eAG = Estimated ave rage glucose which is %A1C expressed asaverage glucose, using the formula of the M8O-XtohdehCyttqgd Glucose study (ADAG), Diabetes Care, Vol.31,#8,Dec. 2007 Blood Venous blood specimen / Unknown 03/08/2024 9:40 AM EST 03/08/2024 11:04 AM EST us Citlali Tee NP LAB BLOOD ORDERABLES Final Resul t [facility] [address] [place] [phone] * Lipid Panel, Standard (07/14/2023 10:50 AM EDT) Triglycerides 100 <150 mg/dL [facility] Comment:Desirable Triglyceri de: less than 150 mg/dLBorderline High Triglyceride 150-199 mg/dLHigh Triglyceride: 200-499 mg/dLVery High Triglyceride: greater than or equal to 5OO mg/dL Cholesterol 137 <200 mg/dL [facility] Comment:Desirable Cholestero l: less than 200 mg/dLBorderline High Cholesterol: 200-239 mg/dLHigh Cholesterol: greater than 239 mg/dL LDL Cholesterol Calculated 74 <100 mg/dL [facility] Comment:Desirable LDL: less than 100 mg/dLNear Optimal/Above Optimal LDL: 110- 129 mg/dLBorderline High LDL: 130-159 mg/dLHigh LDL: 160-189 mg/dLVery High LDL: greater than or equal to 190 mg/dL HDL Cholesterol 43 >40 mg/dL [facility] Comment:Desirable HDL: great er than 40 mg/dL Note: This HDL assay may give artificially low results in patients with liver disease. Blood Venous blood specimen / Unknown 07/14/2023 10:50 AM EDT 07/14/2023 1:02 PM EDT us Saba Hatfield MD LAB BLOOD ORDERABLES Final Result [facility] [address] [place] [phone] * Colonoscopy (05/02/2022) Colonoscopy Normal Normal us Shawanda Feldman NP HEALTH MAINTENANCE Edited Resul t - Final from Last 3 Months or Most Recently Relevant to Health Maintenance [place] [address] [address] , [facility] [address] [place] [address] [facility] MEDICARE Care Teams Radiotelegraphist Relationship Specialty Start Date End Date Citlali Tee NP [address] [place] [phone] PCP - General Family Medicine 07/14/23
--- OUTSIDE RECORDS SUMMARY | 2025-02-24 07:52 | XMS_ITS | Encounter Summary ---
Author Organization [employer] Address [address] [facility] [address] [place] [address] Care Team Providers Care Contact Agent Name Role Phone Citlali Tee JANE Primary Care Provider [phone] Reason for Visit * Reason Comments Med Refill Encounter Details Date Type Department Care Team (Late st Contact Info) Description 08/08/2023 Refill [facility] [address] [place], [place] [phone] Estelle Cain ANP [address] [place], [place] [phone] Essential hypertension; Primary hypertension Social History Tobacco [...] documented as of this encounter Care Teams Contact Agent Relationship Specialty Start Date End Date Citlali Tee NP [address] [place] [address] PCP - General Family Medicine 07/14/23 documented as of this encounter
--- OUTSIDE RECORDS SUMMARY | 2025-02-24 07:52 | XMS_ITS | Encounter Summary ---
Author Organization [employer] Address [address] [facility] [address] [place] [address] Care Team Providers Care Buttonhole Marker Name Role Phone Citlali Tee JANE Primary Care Provider [phone] Reason for Visit * Reason Onset Date Comments Med Refill 09/06/2024 Encounter Details Date Type Department Care Team ([facility] st Contact Info) Description 09/06/2024 Refill [facility] [address] [place], [place] [phone] Name, MD [place] [address] [place] [address] Other hyperlipidemia Social History Tobacco Use Types [...] documented as of this encounter Care Teams Buttonhole Marker Relationship Specialty Start Date End Date Citlali Tee NP [address] [place] [phone] PCP - General Family Medicine 07/14/23 documented as of this encounter
--- OUTSIDE RECORDS SUMMARY | 2025-02-24 07:52 | XMS_ITS | Encounter Summary ---
Author Organization [employer] Address [address] [facility] [address]t [place] [address] Care Team Providers Care Blister Rust Eradicator Name Role Phone Citlali Tee NP Primary Care Provider [phone] Reason for Visit * Reason Comments Med Refill Encounter Details Date Type Department Care Team (Late st Contact Info) Description 05/23/2024 Refill [facility] [address] [place], [place] [phone] Citlali Tee NP [address] [place], [place] [phone] Essential hypertension; Primary hypertension; Other hyperlipidemia Social [...] documented as of this encounter Care Teams Blister Rust Eradicator Relationship Specialty Start Date End Date Citlali Tee NP [address] [place] [phone] PCP - General Family Medicine 07/14/23 documented as of this encounter
--- OUTSIDE RECORDS SUMMARY | 2025-02-24 07:52 | XMS_ITS | Clinical Summary ---
Author Organization [facility] Address [address] [place] [address] Care Team Providers Care Intake Assessor Name Role Phone Americo Hu PA-C Primary Care Provider [phone] Source Comments PLEASE NOTE, if this patient [...] exists Depression Annual Screen 05/05/2024 05/27/2019, 04/05 [id number] ( season) 2025 07/17/2021, 09/25/2020, 09/04/2020 Imm-Influenza [...] & HIV-2 ANTIBODIES (06/03/2019 9:45 AM EST) [facility] HIV 1 AND 2 ANTIBODY SCREEN NEGATIVE NEGATIVE [facility] Comment: This assay is [...] 9:45 AM EST 06/03/2019 9:46 AM EST [facility]3] [facility] - 06/03/2019 12:50 PM EST [employer], [place] [address] Student Teaching Coordinator - Dhara Flores MD PT ID [id number] ORD# [id number] Mercedes RAMIREZ LAB - BLOOD DRAW Final Resu lt Performing Organization Address [facility] [place] [address], * HEMOGLOBIN, GLYCOSYLATED (A1C) (06/03/2019 9:45 AM EST) [facility] GLYCATED HEMOGLOBIN A1C 5.1 <6.5 % [facility] ESTIMATED AVERAGE GLUCOSE 100 mg/dL [facility] Blood specimen (specimen) Blood / Unknown 06/03/2019 9:45 AM EST 06/03/2019 9:46 AM EST Narrative [facility] - 06/03/2019 12:31 PM EST [employer], a member of [address] [address] Student Teaching Coordinator - Dhara Flores MD PT ID [id number] ORD# [id number] Mercedes RAMIREZ LAB - BLOOD DRAW Final Resu lt Performing Organization Address City/[facility]/ZIP Co de Phone Number [address] [address], * (ABNORMAL) LIPID PANEL (06/03/2019 9:44 AM EST) CHOLESTEROL 187 0 - 200 mg/dL [facility] TRIGLYCERIDES 73 0 - 150 mg/dL [facility] HDL CHOLESTEROL 58 >40 mg/dL [facility] LDL CALCULATED 115(H) 0 - 100 mg/dL [facility] TC-HDLC RATIO 3.2 0 - 4.4 mg/dL [facility] Blood specimen (specimen) Blood / Unknown 06/03/2019 9:44 AM EST 06/03/2019 9:46 AM EST Narrative [facility] - 06/03/2019 12:01 PM EST [employer], [place] [address] Student Teaching Coordinator - Dhara Flores MD PT ID [id number] ORD# [id number] Mercedes Broderick [facility] LAB - BLOOD DRAW Final Resu lt Performing Organization Address City/State/[facility] [place] [address], * (ABNORMAL) hepatitis ABC panel future (04/30/2018 9:50 AM EST) HEPATITIS B SURFACE ANTIBODY POSITIVE(A) NEGATIVE [facility] HEPATITIS B SURFACE ANTIGEN NEGATIVE NEGATIVE [facility] Comment: Over the counter supplements containing high doses of biotin may interfere with this assay. If interference is suspected, patients shoud be retested after refraining from biotin supplements for 72 hours. HEPATITIS C VIRUS DIAGNOSTIC NEGATIVE NEGATIVE [facility] HEPATITIS A ANTIBODY TOTAL POSITIVE(A) NEGATIVE [facility] Comment: Over the counter supplements containing high doses of biotin may interfere with this assay. If interference is suspected, patients shoud be retested after refraining from biotin supplements for 72 hours. HEPATITIS B CORE ANTIBODY POSITIVE(A) NEGATIVE [facility] Blood specimen (specimen) Blood / Unknown 04/30/2018 9:50 AM EST 04/30/2018 11:36 AM EST Narrative [facility] - 04/30/2018 7:16 PM EST [employer], a member of [address] [address] Student Teaching Coordinator - Janell Pollack MD PT ID [id number] ORD# [id number] Clinton Hanson MD LAB - BLOOD DRAW Edited Result - Final [facility] [address] [place] [address], from Last 3 Months or Most Recently Relevant to Health Maintenance Insurance [facility] Member Subscriber Plan / Payer (Ef fective 2019-Present) Name:Ag Gill Relation to Subscriber:Self Name:Ag Gill Payer ID:[id number] Group ID:Not on file Type:[employer] Address: [address] [place] [id number] [place] [address] [place] Care Teams Intake Assessor Relationship Specialty Start Date End Date Americo Hu PA-C [address] [place] [address] [facility] - General 10/12/21
--- OUTSIDE RECORDS SUMMARY | 2025-02-24 07:52 | XMS_ITS | Clinical Summary ---
Author Organization [facility] Address [address] [place] [address] Phone Care Team Providers Care Dealer Account Manager Name Role Phone Physician, Pcp Unknown Primary [...] mmol/L LAB CHEMISTRY METHOD 09/21/2024 8:46 AM [facility] Potassium 3.9 3.5 - 5.5 mmol/L LAB CHEMISTRY METHOD 09/21/2024 8:46 AM [facility] Chloride 106 96 - 110 mmol/L LAB CHEMISTRY METHOD 09/21/2024 8:46 AM [facility] CO2 24 21 - 32 mmol/L LAB CHEMISTRY METHOD 09/21/2024 8:46 AM [facility] Anion Gap 6 3 - 11 LAB CHEMISTRY METHOD 09/21/2024 8:46 AM [facility] Glucose 118(H) 70 - 100 mg/dL LAB CHEMISTRY METHOD 09/21/2024 8:46 AM [facility] BUN 17 5 - 25 mg/dL LAB CHEMISTRY METHOD 09/21/2024 8:46 AM [facility] Creatinine 1.10 0.70 - 1.30 mg/dL LAB CHEMISTRY METHOD 09/21/2024 8:46 AM [facility] eGFR 74 >=60 mL/min/1. 73m2 LAB CHEMISTRY METHOD 09/21/2024 8:46 AM [facility] Comment:Calculation based on the Chronic Kidney Disease Epidemiology Collaboration (CKD-EPI) equation refit without adjustment for race. BUN/Creatinine Ratio 15.5 LAB CHEMISTRY METHOD 09/21/2024 8:46 AM [facility] Calcium 11.2(H) 8.5 - 10.5 mg/dL LAB CHEMISTRY METHOD 09/21/2024 8:46 AM [facility] AST (SGOT) 29 10 - 42 unit/L LAB CHEMISTRY METHOD 09/21/2024 8:46 AM [facility] ALT (SGPT) 31 10 - 60 unit/L LAB CHEMISTRY METHOD 09/21/2024 8:46 AM EDT [facility] Alkaline Phosphatase 107 42 - 121 unit/L LAB CHEMISTRY METHOD 09/21/2024 8:46 AM EDT [facility] Total Protein 8.3(H) 6.0 - 8.0 g/dL LAB CHEMISTRY METHOD 09/21/2024 8:46 AM EDT [facility] Albumin 4.6 3.2 - 5.0 g/dL LAB CHEMISTRY METHOD 09/21/2024 8:46 AM EDT [facility] Total Bilirubin 0.4 0.0 - 1.4 mg/dL LAB CHEMISTRY METHOD 09/21/2024 8:46 AM T [facility] Blood Venous blood specimen / Unknown Venipuncture / Unknown 09/21/2024 7:48 AM EDT 09/21/2024 8:14 AM EDT us Lei Mario MD LAB BLOOD ORDERABLES Final Result [facility] [address] [place] [address], from Last 3 Months or Most Recently Relevant to Health Maintenance Insurance MEDICARE MEDICAID - [place] Care Teams Dealer Account Manager Relationship Specialty Start Date End Date Physician, Pcp Unknown PCP - General 09/21/24
== END ==
LOC: HO.CARD 07:49
PROVIDERS: PCP Nurse Practitioner Family; Visit Provider Internal Medicine Cardiovascular Disease
DX: R94.31 Abnormal electrocardiogram [ECG] [EKG] (principal); R07.9 Chest pain, unspecified
CPT/HCPCS: 78452; 93017; 93306; A9500; J0280; J2785

== ENCOUNTER → 2025-02-24 07:52 | Outpatient (BNV) | payer MEDICARE, MEDICAID, SELFPAY | PROVIDERS: PCP Nurse Practitioner Family | DX: R94.31 Abnormal electrocardiogram [ECG] [EKG] (principal); I51.89 Other ill-defined heart diseases | CPT/HCPCS: 78452; 93016; 93018; 93350; 93356 ==

== ENCOUNTER 2025-03-07 09:49 | Outpatient (AMB) | payer MEDICARE, MEDICAID, SELFPAY ==
[2025-03-07 10:02] VITALS: BP 140/82; PULSE 93; BMI 31.3
--- NOTE | 2025-03-07 10:02 | A.OFFVIS_ITS ---
Vital Signs 03/07/25 10:02 Height 5 ft 5 in Weight 188 lb 4.396 oz BMI 31.3 BP 140/82 H Blood Pressure Location Lt brachial Position Sitting Pulse 93 Pulse Source Pulse Oximeter Intake Visit Reasons: 2 mth fu after stress/echo and labs (NS) Garde Manager Required: No Allergies ibuprofen (From MOTRIN) Allergy (Intermediate, Verified 03/07/25 10:04) RASH latex Allergy (Intermediate, Verified 03/07/25 10:04) Rash Medication List - Last Reconciled 03/07/25 by Marlen Garcia NP-C amlodipine 10 mg PO DAILY atorvastatin 10 mg PO DAILY cholecalciferol (vitamin D3) 50 mcg PO DAILY 1 month folic acid 1 mg PO DAILY hydrochlorothiazide 12.5 mg PO DAILY methotrexate sodium 12.5 mg PO QWEEK olmesartan 40 mg PO DAILY HPI HPI 2 mth fu after stress/echo and labs (NS): Details: Ag is a 64-year-old male with past medical history of hypertension, hyperlipidemia, hyperparathyroidism, abnormal EKG who presents for follow-up after recent nuclear stress test and echocardiogram. Today he reports he has been feeling well with no concerning symptoms. No chest discomfort at rest or with activity. No shortness of breath, PND, orthopnea or edema. No heart palpitations, lightheadedness, presyncope, syncope. 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 He has issues with arthritis in his hips, back and shoulders tries to remain physically active. He is compliant with his medications. Periodic home blood pressures checked and systolic readings typically in the 120s to 130s. 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 [employer] Review of Systems Const All systems reviewed & are unremarkable except as noted in HPI and below ENT Denies dizziness Card Denies chest pain, Denies chest pain at rest, Denies chest pain with activity, Denies rapid heart rate, Denies pedal edema, Denies edema, Denies leg edema, Denies lightheadedness, Denies palpitations, Denies dyspnea, Denies dyspnea on e xertion and Denies orthopnea Resp Denies cough, Denies dyspnea and Denies dyspnea on exertion GI Denies hematochezia and Denies change in stool character Musc Denies abnormal gait, Denies limited range of motion, Denies muscle cramps, Denies muscle weakness, Denies numbness, Denies radiating pain into limb, Denies stiffness and Denies tingling Neuro Denies abnormal gait, Denies dizziness, Denies numbness and Denies tingling Endo Denies palpitations Physical Exam Vital Signs: Last Vital Signs Pulse 93 03/07/25 10:02 BP 140/82 H 03/07/25 10:02 BMI result Body Mass Index 31.3 Const General: cooperative, healthy appearing, comfortable and no acute distress Orientation/consciousness: patient oriented x3 Neck Neck: Yes normal visual inspection Resp Effort & Inspection: normal respiratory effort Auscultation: clear to auscultation bilaterally, no rales, no rhonchi and no wheezes Cardio Rate: regular rate Rhythm: regular rhythm Heart sounds: S1 normal heart sound present, S2 normal heart sound present, no gallops, no murmurs and no rubs Neuro General: patient oriented x3 Extrem General: Yes normal to inspection, No no pedal edema and No calf tenderness Psych Appearance: grossly normal Mental Status: mental status grossly normal Speech and movement: Normal speech and movement present Assessment & Plan Assessment & Plan (1) HTN (hypertension): Code(s): I10 - Essential (primary) hypertension Category: Medical Plan: Blood pressure goal less than 130/85. Initial blood pressure 140/82, recheck done by me later in visit 06/03 . He reports home blood pressures being 120-130 systolic. Reviewed low-salt diet, weight loss, physical activity as tolerated. Continue hydrochlorothiazide, amlodipine and olmesartan. Instructed to call if home pressure is running greater than 140 systolic. (2) Abnormal EKG: Code(s): R94.31 - Abnormal electrocardiogram [ECG] [EKG] Category: Medical Plan: EKG done last visit showing sinus rhythm with PAC, T-wave abnormality suggesting inferior lateral ischemia. No reports of anginal symptoms. Nuclear stress test 02/24/2025 shows normal myocardial perfusion imaging, EF 45-47. Echocardiogram done 02/24/2025 shows EF 55-60%, mild LVH, elevated filling pressures. He is on hydrochlorothiazide 12.5 mg daily as well as amlodipine and olmesartan for blood pressure control. No signs of fluid overload on exam. Labs 01/14/2025 showed potassium 3.6, creatinine 1.09. If blood pressure becomes more elevated than hydrochlorothiazide dose can be increased. (3) LVH (left ventricular hypertrophy): Code(s): I51.7 - Cardiomegaly Category: Medical Plan: Echocardiogram shows mild LVH. The importance of good blood pressure control reviewed with him. Plan I discussed with the patient the importance of continuing his current medi cations for hypertension and monitoring his blood pressure at home. We reviewed the need to maintain a low-salt diet and stay physically active to manage both hypertension and osteoarthritis. I advised him to report any new symptoms such as chest pain or shortness of breath. Patient Instructions: - Continue taking your blood pressure medications as prescribed. - Monitor your blood pressure at home and report if it goes above 140/90 mmHg. - Maintain a low-salt diet to help control blood pressure. - Stay active with walking and resistance exercises to manage arthritis. - Report any new symptoms like chest pain or shortness of breath. Patient was informed and verbally consented to the use of an ambient scribe for clinic note documentation during this visit. Visit time spent on chart review, interview, assessment, orders, documentation. Coding Level of Care Code Est Pt Level 4 (98940) Complex EM visit Add On G2211 Diagnoses HTN (hypertension) I10 Abnormal EKG R94.31 LVH (left ventricular hypertrophy) I51.7 Time Spent (min) 28
--- OUTSIDE RECORDS SUMMARY | 2025-03-07 11:24 | XMS_ITS | Encounter Summary ---
Author Organization [employer] Address [address] [facility] [address]t [place] [address] Care Team Providers Care Sandwich And Drink Cart Operator Name Role Phone Citlali Tee NP Primary Care Provider Reason for Visit * Reason Onset Date Comments Med Refill 09/06/2024 Encounter Details Date Type Department Care Team (Late st Contact Info) Description 09/06/2024 Refill [facility] [address] [place], [place] [phone] Sarah Mukherjee NP [address] [place], [place] [phone] Arthralgia of both hands Social History Tobacco [...] documented as of this encounter Care Teams Sandwich And Drink Cart Operator Relationship Specialty Start Date End Date Citlali Tee NP [address] [place] [id number] PCP - General Family Medicine 07/14/23 documented as of this encounter
--- OUTSIDE RECORDS SUMMARY | 2025-03-07 11:24 | XMS_ITS | Encounter Summary ---
Author Organization [employer] Address [address] [facility] [address] [place] [address] Care Team Providers Care Deputy K 9 Name Role Phone Citlali Tee JANE Primary Care Provider [phone] Reason for Visit * Reason Onset Date Comments Med Refill 09/06/2024 Encounter Details Date Type Department Care Team ([facility] st Contact Info) Description 09/06/2024 Refill [facility] [address] [place], [place] [phone] Name, MD Ayden [address] [place] [address] Other hyperlipidemia Social History Tobacco Use Types [...] documented as of this encounter Care Teams Deputy K 9 Relationship Specialty Start Date End Date Citlali Tee NP [address] [place] [id number] PCP - General Family Medicine 07/14/23 documented as of this encounter
--- OUTSIDE RECORDS SUMMARY | 2025-03-07 11:25 | XMS_ITS | Clinical Summary ---
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
--- OUTSIDE RECORDS SUMMARY | 2025-03-07 11:25 | XMS_ITS | Encounter Summary ---
Author Organization [employer] Address [address] [facility] [address] [place] [address] Care Team Providers Care Tannery Worker Name Role Phone Citlali Tee JANE Primary Care Provider [phone] Encounter Details Date Type Department Care Team (Late st Contact Info) Description 12/26/2023 Orders Only [facility] [address] [place] [address] Provider, MD Claude Social History Tobacco Use [...] documented as of this encounter Care Teams Tannery Worker Relationship Specialty Start Date End Date Citlali Tee NP [address] [place] [address] PCP - General Family Medicine 07/14/23 documented as of this encounter
--- OUTSIDE RECORDS SUMMARY | 2025-03-07 11:25 | XMS_ITS | Encounter Summary ---
Author Organization [email or web address] Address [address] [facility] [address] [place] [address] Care Team Providers Care Family Mediator Name Role Phone Citlali Tee NP Primary Care Provider [phone] Reason for Visit * Reason Comments Med Refill Encounter Details Date Type Department Care Team (Late st Contact Info) Description 03/02/2025 Refill [facility] [address] [place] [address] Citlali Tee NP [address] [place] [address] Other hyperlipidemia; Essential hypertension; Primary hypertension Social History Tobacco [...] this encounter Visit Diagnoses Diagnosis Other hyperlipidemia Essential hypertension Unspecified essential hypertension Primary hypertension Unspecified essential hypertension documented in this encounter Additional Health Concerns Assessment Noted Time PHQ-9 Depression Total Score: 0 07/28/19 24 11:03 AM EDT documented as of this encounter Care Teams Family Mediator Relationship Specialty Start Date End Date Citlali Tee NP [address] [place] [address] PCP - General Family Medicine 07/14/23 documented as of this encounter
--- OUTSIDE RECORDS SUMMARY | 2025-03-07 11:25 | XMS_ITS | Encounter Summary ---
Author Organization [employer] Address [address] [facility] [address] [place] [address] Care Team Providers Care Evaporative Cooler Installer Name Role Phone Citlali Tee JANE Primary Care Provider [phone] Reason for Visit * Reason Comments Med Refill Encounter Details Date Type Department Care Team (Late st Contact Info) Description 08/08/2023 Refill [facility] [address] [place], [place] [phone] Estelle Cain ANP [address] [place], [place] [phone] Essential hypertension; Primary hypertension Social History Tobacco [...] documented as of this encounter Care Teams Evaporative Cooler Installer Relationship Specialty Start Date End Date Citlali Tee NP [address] [place] [address] PCP - General Family Medicine 07/14/23 documented as of this encounter
--- OUTSIDE RECORDS SUMMARY | 2025-03-07 11:25 | XMS_ITS | Clinical Summary ---
Author Organization [facility] Address [address] [place] [address] Phone Care Team Providers Care Mixed Signal Design Engineer Name Role Phone Physician, Pcp Unknown Primary [...] mmol/L LAB CHEMISTRY METHOD 09/21/2024 8:46 AM [facility] Potassium 3.9 3.5 - 5.5 mmol/L LAB CHEMISTRY METHOD 09/21/2024 8:46 AM [facility] Chloride 106 96 - 110 mmol/L LAB CHEMISTRY METHOD 09/21/2024 8:46 AM [facility] CO2 24 21 - 32 mmol/L LAB CHEMISTRY METHOD 09/21/2024 8:46 AM [facility] Anion Gap 6 3 - 11 LAB CHEMISTRY METHOD 09/21/2024 8:46 AM [facility] Glucose 118(H) 70 - 100 mg/dL LAB CHEMISTRY METHOD 09/21/2024 8:46 AM [facility] BUN 17 5 - 25 mg/dL LAB CHEMISTRY METHOD 09/21/2024 8:46 AM [facility] Creatinine 1.10 0.70 - 1.30 mg/dL LAB CHEMISTRY METHOD 09/21/2024 8:46 AM [facility] eGFR 74 >=60 mL/min/1. 73m2 LAB CHEMISTRY METHOD 09/21/2024 8:46 AM [facility] Comment:Calculation based on the Chronic Kidney Disease Epidemiology Collaboration (CKD-EPI) equation refit without adjustment for race. BUN/Creatinine Ratio 15.5 LAB CHEMISTRY METHOD 09/21/2024 8:46 AM [facility] Calcium 11.2(H) 8.5 - 10.5 mg/dL LAB CHEMISTRY METHOD 09/21/2024 8:46 AM [facility] AST (SGOT) 29 10 - 42 unit/L LAB CHEMISTRY METHOD 09/21/2024 8:46 AM [facility] ALT (SGPT) 31 10 - [...] Final Result [facility] [address] [place] [address], from Last 3 Months or Most Recently Relevant to Health Maintenance Insurance MEDICARE MEDICAID - [place] Care Teams Mixed Signal Design Engineer Relationship Specialty Start Date End Date Physician, Pcp Unknown PCP - General 09/21/24
--- OUTSIDE RECORDS SUMMARY | 2025-03-07 11:25 | XMS_ITS | Encounter Summary ---
Author Organization [employer] Address [address] [facility] [address] [place] [address] Care Team Providers Care Housekeeping Room Attendant Name Role Phone Estelle Cain GINI Primary Care Provider [phone] Citlali Tee VAMP MAKER Primary Care Provider [phone] Encounter Details Date Type Department Care Team (Late st Contact Info) Description 04/16/2023 Orders Only [facility] [address] [place] [address] Susan Pimentel LPN Social History Tobacco Use [...] FACTOR Routine 10/24/2023 11: 19 AM EDT [id number] ENZYME Routine 10/24/2023 11:19 AM EDT [...] IMMUNOGLOBULIN G 1340 600 - 1540 mg/dL [facility] IMMUNOGLOBULIN A 233 70 - 320 mg/dL [facility] Immunoglobulin M 84 50 - 300 mg/dL [facility] Comment:THIS TEST WAS PERFOR MED AT:[facility] [place] [phone] BLANCHARD MD Immunofixation Result SEE NOTE [facility] Comment:Normal pattern. No m onoclonal proteins detected. 10/24/2023 11:1 9 AM EDT 10/24/2023 11:19 AM EDT us Generic External Data Provider LAB BLOOD ORDERAB LES Final Result [facility] [address] [place] [phone] * (ABNORMAL) Angiotensin -1- Converting Enzyme (10/24/2023 11:19 AM EDT) Pathologist [facility] Angiotensin Converting Enzyme 70(A) 9 - 67 U/L [facility] Comment:THIS TEST WAS PERFOR MED AT:[employer] [place] [address]URNFMEQTYLER DU MD,PHD 10/24/2023 11:1 9 AM EDT 10/24/2023 11:19 AM EDT us Generic External Data Provider LAB BLOOD ORDERAB LES Final Result [facility] [address] [place] [phone] * (ABNORMAL) Protein Electrophoresis and [place]/[employer] Ch[employer] (10/24/2023 11:19 AM EDT) Pathologist [facility] Prot Elec - Total Protein 8.2(A) 6.1 - 8.1 g/dL [facility] Prot Elec - Albumin 4.7 3.8 - 4.8 g/dL [facility] Prot Elec - Alpha1 0.3 0.2 - 0.3 g/dL [facility] Prot Elec - Alpha2 0.8 0.5 - 0.9 g/dL [facility] Prot Elec - Beta 1 0.6 0.4 - 0.6 g/dL [facility] Prot Elec - Beta 2 0.3 0.2 - 0.5 g/dL [facility] Prot Elec - Gamma 1.5 0.8 - 1.7 g/dL [facility] PES - Abn Protein Band 1 [facility] PES-Abn Protein Band 2 [facility] PES-Abn Protein Band 3 [facility] Prot Elec - Interpretation SEE NOTE [facility] Comment:Normal Serum Protein Electrophoresis Pattern.No abnormal protein bands (M-protein) detected.THIS TEST WAS PERFORMED AT:[employer] [address] [place] [address] [phone] BLANCHARD MD 10/24/2023 11:1 9 AM EDT 10/24/2023 11:19 AM EDT us Generic External Data Provider LAB BLOOD ORDERAB LES Final Result [facility] [address] [place] [phone] * SHERYL Screen,IFA, with Reflex to Titer and Pattern (10/24/2023 11:19 AM EDT) Anti Nuclear Antibody Screen NEGATIVE NEGATIVE [facility] Comment:SHERYL IFA is a first [...] clinicallysuspected inflammatory myopathies.AC-0: NegativeInternational Consensus on SHERYL Patterns(https://doi.org/10.1515/qqxc-9128-3209)For additional information, please refer tohttp://education.Offermobi/faq/TFW138(This link is being provided for informational/educational purposes only.)THIS TEST WAS PERFORMED AT:[employer] [place] [phone] BLANCHARD MD SHERYL Titer TNP [facility] SHERYL Pattern TNP [facility] SHERYL Titer 2 TNP [facility] SHERYL Pattern 2 TNP [facility] SHERYL TITER 3 [facility] SHERYL PATTERN 3 [facility] 10/24/2023 11:1 9 AM EDT 10/24/2023 11:19 AM EDT us Generic External Data Provider LAB BLOOD ORDERAB LES Final Result Performing Organization Address [facility] Co de Phone Number [facility] [address] [place] [phone] * Cyclic Citrullinated Peptide (CCP) Antibody (IgG) (10/24/2023 11:19 AM EDT) Pathologist [facility] Cyclic Citrullinated Peptide <16 UNITS [facility] Comment:Reference RangeNegat travis: <20Weak Positive: 20-39Moderate Positive: 40-59Strong Positive: >59THIS TEST WAS PERFORMED AT:[facility] [place] [phone] BLANCHARD MD 10/24/2023 11:1 9 AM EDT 10/24/2023 11:19 AM EDT Generic External Data Provider LAB BLOOD ORDERAB LES Final Result Performing Organization Address [facility] Co de Phone Number [facility] [address] [place] [phone] * HIV-1/2 Antigen and Antibodies, Fourth Generation, with Reflexes (10/24/2023 11:19 AM EDT) [facility] HIV AB/AG Nonreactive Nonreactive [facility] Comment:HIV-1 p24 Ag and/or HIV-1/HIV-2 Ab not detected.A test result that is nonreactive does not exclude thepossibility of exposure to or infection with HIV-1 and/orHIV-2. Nonreactive results in this assay for individualswith prior exposure to HIV-1 and/or HIV-2 may be due toantigen and antibody levels that are below the limit ofdetection of this assay.The [employer] HIV Ag/Ab Combo assay result andsupplemental assay results should be interpreted inconjunction with the patient's clinical presentation,history and other laboratory results. If the results areinconsistent with clinical evidence, additional testing issuggested to confirm the result. 10/24/2023 11:1 9 AM EDT 10/24/2023 11:19 AM EDT Generic External Data Provider LAB BLOOD ORDERAB LES Final Result Performing Organization Address [facility] Co de Phone Number [facility] [address] [place] [phone] * Hepatitis Panel, General (10/24/2023 11:19 AM EDT) Pathologist [facility] Hepatitis A IgM Nonreactive Nonreactive [facility] Comment:IgM antibodies to PITTS V not detected; does not exclude earlyacute or recovered HAV infection. ~Hepatitis B Surface Antibody REACTIVE Nonreactive [facility] Comment:REACTIVE: > 11.99 mI U/mL Hepatitis B Core Antibody Reactive Nonreactive [facility] Comment:Presumptive evidence of anti-HBc. Hepatitis C Antibody Nonreactive Nonreactive [facility] Comment:Antibodies to HCV no t detected; does not exclude early acuteHCV infection. Hepatitis B Surface Ag Negative Negative [facility] 10/24/2023 11:1 9 AM EDT 10/24/2023 11:19 AM EDT [employer] [facility] External Data Provider LAB BLOOD ORDERAB LES Final Result Performing Organization Address [facility] de Phone Number [facility] [address] [place] [phone] * T-SPOT??.TB (10/24/2023 11:19 AM EDT) Pathologist [facility] T Spot TB Negative Negative [facility] Comment:A negative test resu lt [...] as aquantitative test. TS PANEL A 0 [facility] TS PANEL B 0 [facility] Negative Control Passed [facility] Positive Control Passed [facility] Comment:For additional infor jewels, please refer tohttp://education.Ringleadr.com/faq/HYG598(This link is being provided for informational/educational purposes only.)THIS TEST WAS PERFORMED AT:[employer] [address] [place] [address]PVDCFTSTYLER DU MD,PHD 10/24/2023 11:1 9 AM EDT 10/24/2023 11:19 AM EDT us Generic External Data Provider LAB BLOOD ORDERAB LES Final Result Performing Organization Address City/[facility]/ZIP Co de Phone Number [facility] [address] [place] [phone] * Sed Rate by Modified Yasmeenren (10/24/2023 11:19 AM EDT) Erythrocyte Sedimentation Rate 7 0 - 15 MM/HR [facility] Comment:Patients with polycy themia and many hemoglobin abnormalitiesmay have depressed sed rates whereas patients with anemiamay have elevated sed rates. 10/24/2023 11:1 9 AM EDT 10/24/2023 11:19 AM EDT us Generic External Data Provider LAB BLOOD ORDERAB LES Final Result Performing Organization Address City/[facility]/ZIP Co de Phone Number [facility] [address] [place] [phone] * C-reactive Protein (10/24/2023 11:19 AM EDT) C Reactive Protein 0.16 < or = 0.50 mg/dL [facility] 10/24/2023 11:1 9 AM EDT 10/24/2023 11:19 AM EDT us Generic External Data Provider LAB BLOOD ORDERAB LES Final Result [facility] [address] [place] [phone] * (ABNORMAL) Comprehensive Metabolic Panel (10/24/2023 11:19 AM EDT) Pathologist [facility] Sodium 140 135 - 145 mmol/L [facility] Potassium 3.7 3.3 - 5.1 mmol/L [facility] Chloride 107 96 - 108 mmol/L [facility] Carbon Dioxide 28 22 - 29 mmol/L [facility] Anion Gap 9(L) 12 - 20 [facility] Urea Nitrogen (BUN) 18(H) 9 - 16 mg/dL [facility] Creatinine, Serum 0.99 0.5 - 1.4 mg/dL [facility] Estimated Glomerular Filt Rate >60 [facility] Comment:NOTE: For -Am erican individuals, multiply the result by 1.210.Chronic Kidney Disease: Estimated GFR < 60 mL/min/1.89c0Csetkr Kidney Disease: Estimated GFR < 15 mL/min/1.73m2 Glucose 105 60 - 115 mg/dL [facility] Calcium 11.3(H) 8.4 - 10.2 mg/dL [facility] Bilirubin, Total 0.5 0.0 - 1.0 mg/dL [facility] Aspartate Amino Transferase 28 5 - 37 U/L [facility] Alanine Aminotransferase 22 0 - 40 U/L [facility] Total Protein 7.8 6.5 - 8.0 g/dL [facility] Albumin Level 4.5 3.5 - 5.0 g/dL [facility] Alkaline Phosphatase 74 39 - 117 U/L [facility] 10/24/2023 11:1 9 AM EDT 10/24/2023 11:19 AM EDT us Generic External Data Provider LAB BLOOD ORDERAB LES Final Result Performing Organization Address City/[facility] Co de Phone Number [facility] [address] [place] [phone] * Rheumatoid Factor (10/24/2023 11:19 AM EDT) Rheumatoid Factor <13.0 <15.0 IU/mL [facility] 10/24/2023 11:1 9 AM EDT 10/24/2023 11:19 AM EDT us Generic External Data Provider LAB BLOOD ORDERAB LES Final Result Performing Organization Address [facility] Co de Phone Number [facility] [address] [place] [phone] * Hemoglobin A1c (10/24/2023 11:19 AM EDT) Hemoglobin A1c 5.5 <6.0 % [facility] Comment:Hemoglobin A1C Refer ence Range Adults: 4.8 - 6.0 % Non diabetic: < 6.0 % Goal: < 7.0 %Additional Action Suggested: > 8.0 %Note: Hemoglobin A1c results are invalid for patients with abnormal amounts of HbF. Blood transfusions may impact the HbA1c concentration in the patient sample. Estimated Average Glucose 111 mg/dL [facility] Comment:eAG = Estimated ave rage glucose which is %A1C expressed asaverage glucose, using the formula of the [id number] Glucose study (ADAG), Diabetes Care, Vol.31,#8,Dec. 2007 10/24/2023 11:1 9 AM EDT 10/24/2023 11:19 AM EDT us Generic External Data Provider LAB BLOOD ORDERAB LES Final Result Performing Organization Address [facility] Co de Phone Number [facility] [address] [place] [phone] * (ABNORMAL) CBC auto differential (10/24/2023 11:19 AM EDT) White Blood Count 4.4(L) 4.8 - 10.8 X10*3/uL [facility] Red Blood Count 4.15(L) 4.60 - 5.80 X10*6/uL [facility] Hemoglobin 12.4(L) 14.0 - 18.0 g/dl [facility] Hematocrit 37.7(L) 42.0 - 52.0 % [facility] Mean Corpuscular Volume 90.8 80.0 - 98.0 fL [facility] Mean Corpuscular Hemoglobin 29.9 27.0 - 33.0 pg [facility] Mean Corpuscular HGB Conc 32.9 31.0 - 36.0 g/dl [facility] Red Cell Distribution Width 12.7 11.0 - 16.0 % [facility] Platelet Count 277 160 - 400 X10*3/uL [facility] Mean Platelet Volume 10.3 9.4 - 12.4 fL [facility] Neutrophils Percent Auto 50.4 45 - 73 % [facility] Imm Gran Pct Auto 0.5(H) 0.0 - 0.4 % [facility] Lymphocytes Percent Auto 33.9 20 - 40 % [facility] Monocytes Percent Auto 10.0 2 - 11 % [facility] Eosinophils Percent Auto 4.3(H) 0 - 4 % [facility] Basophils Percent Auto 0.9 0 - 2 % [facility] NRBC Pct Auto 0.0 0.0 - 0.2 /100WBC [facility] Neutrophils Absolute Auto 2.2 2.0 - 8.3 x10*3/uL [facility] Imm Gran Abs Auto 0.02 0.00 - 0.03 X10*3/uL [facility] Lymphocytes Absolute Auto 1.5 1.2 - 4.9 X10*3/uL [facility] Monocytes Absolute Auto 0.4 0.1 - 1.2 X10*3/uL [facility] Eosinophils Absolute Auto 0.2 0.0 - 0.4 X10*3/uL [facility] Basophils Absolute Auto 0.0 0.0 - 0.2 X10*3/uL [facility] NRBC Abs Auto 0.000 0.0 - 0.012 X10*3/uL [facility] 10/24/2023 11:1 9 AM EDT 10/24/2023 11:19 AM EDT us Generic External Data Provider LAB BLOOD ORDERAB LES Final Result Performing Organization Address City/State/[facility] Co de Phone Number [facility] [address] [place] [phone] documented in this encounter Visit Diagnoses Not on filedocumented in this encounter Care Teams Housekeeping Room Attendant Relationship Specialty Start Date End Date Estelle Cain ANP [address] [place] [address] PCP - General Family Medicine 12/26/21 07/13/23 Citlali Tee NP [address] [place] [address] PCP - General Family Medicine 07/14/23 documented as of this encounter
--- OUTSIDE RECORDS SUMMARY | 2025-03-07 11:25 | XMS_ITS | Clinical Summary ---
Author Organization [employer] Address [address] [facility] [address] [place] [address] Care Team Providers Care Golf Course Assistant Name Role Phone Citlali Tee JANE Primary Care Provider [phone] Allergies Active Allergy Reactions Criticality Noted Date Comments Aspirin Unknown High 03/09/2016 Pt states stomach pain and stomach bleed when taking this medication. Ibuprofen 10/30/2023 Latex Unknown Medium 02/01/2016 Stewart to skin Medications olmesartan (Benicar) 40 MG tablet Take 1 [...] FOR HIGH CHOLESTEROL 90 tablet 025 Active amLODIPine (Norvasc) 10 MG tabletIndications :Essential hypertension,Prim symone hypertension TAKE 1 TABLET(10 MG) BY MOUTH IN THE MORNING 90 tablet 1 025 Active amLODIPine (Norvasc) 10 MG tabletIndications :Essential hypertension,Prim symone hypertension TAKE 1 TABLET(10 MG) BY MOUTH IN THE MORNING 90 tablet 1 025 2024 Discontinued atorvastatin (Lipitor) 10 MG tabletIndications :Other hyperlipidemia [...] ng right hip with positive rheumatoid factor ([facility]) 08/10/2024 Assessment & Plan (08/12/2024 6:47 PM EDT): Noted sig improvement in pain while on 6mp, now out of med and lost to care for rhue, would like to reestablish as right hip [...] Encounters Date Type Department Care Team Description 03/02/2025 Refill [facility] [address] [place] [address] Citlali Tee NP Other hyperlipidemia; Essential hypertension; Primary hypertension 01/28/2025 Orders Only [facility] External Provider, [facility] 01/14/2025 Orders Only GENERIC EXTERNAL DATA DEPARTMENT Provider, Generic External Data 01/07/2025 Orders Only GENERIC EXTERNAL DATA DEPARTMENT Provider, Generic External Data 12/06/2024 Refill [facility] [address] [place] [address] Citlali Tee NP Other hyperlipidemia from Last 3 Months Immunizations [...] Screening 07/27/2024 07/28/2023, 07/28/19 24 COVID-19 Vaccine (2024- season) 2025 07/17/2021, 09/25/2020, 09/04/2020 Influenza Vaccine [...] Procedure Name Priority Date/Time Associated Diagnosis Comments STRESS TEST WITH MYOCARDIAL PERFUSION Routine 02/24/2025 10:28 AM EDT XR HAND 3+ VIEWS BILATERAL Routine 01/28/2025 [...] Recently Relevant to Health Maintenance Results * Stress test with myocardial perfusion (02/24/2025 10:28 AM EDT) 02/24/2025 10:2 8 AM EDT [facility] IMAGING - 02/28/2025 4:03 PM EDT [address] [address] Nuclear Medicine Report Signed Patient: Ag Gill MR#: [id number] 185 : 1960 Acct:[id number] Age/Sex: 64 / M ADM Date: 02/24/25 Loc: .[facility] Attending Dr: Zheng Pal MD Ordering Physician: Zheng Pal MD Date of Service: 02/24/25 Procedure(s): NM cardiolite stress test Accession Number(s): [id number] cc: Citlali Tee TOOL LATHE OPERATOR; Zheng Pal MD Reason for Exam: R07.9 - Chest pain, unspecified EXERCISE MYOCARDIAL PERFUSION STUDY INDICATION: Abnormal EKG TECHNIQUE: The patient was brought in for an exercise perfusion study on 02/24/2025. Patient performed exercise as per Joel protocol and was injected 30 mCi of sestamibi once target heart rate was achieved. Images were obtained using the SPECT gamma camera interlaced with the gating device. Images were obtained in supine position. Resting perfusion study was performed on 02/28/2025. Patient was administered 30 mCi of sestamibi intravenously at rest. Images were then obtained in supine position. Total DLP 68 mGy-cm. Images were processed with the software and compared side to side in short axis, horizontal long axis and vertical long axis views. FINDINGS: Raw aquisition reviewed. The stress perfusion study showed mildly decreased tracer uptake in the basal part of inferior wall. There is improvement with CT attenuation correction suggestive of diaphragmatic attenuation artifact. The gated study shows mildly decreased LV systolic function with calculated LVEF of 45%. LV cavity is normal in size. The gated study shows normal wall thickening and contraction of segments. Resting study shows no significant perfusion abnormality. Gating at rest reveals normal wall motion with ejection fraction at 47%. The findings are consistent with mild reversible basal inferior defect, probably artifactual. NC/NC cardiolite stress test IMPRESSION: 1. Myocardial perfusion imaging study shows no clear evidence of ischemia or infarction. 2. Gated LVEF is 45% during stress and 47% during rest, but visually appears higher. Correlate with echocardiogram. 3. Transient ischemic dilatation not present. EKG component of the test reported separately. Electronically signed by: Bennett Grimaldo MD 02/28/2025 04:00 PM EDT Dictated By: Bennett Grimaldo MD Signed By: <Electronically signed by Bennett Grimaldo MD in OV> 02/28/25 1600 DD/ 1028 TD/TT: 02/28/25 0820 [place] Regulator: Procedure Note Donotuseinterpreter, Image - 02/28/2025 [place] [address] Nuclear Medicine Report Signed Patient: Ag Gill HMR#: [id number] 185 : 9Acct:[id number] Age/Sex: 64 / MADM Date: 02/24/25 Loc: [facility] Attending Dr: Zheng Pal MD Ordering Physician: Zheng Pal MD Date of Service: 02/24/25 Procedure(s): NM cardiolite stress test Accession Number(s): [id number] cc: Citlali Tee TOOL LATHE OPERATOR; Zheng Pal MD Reason for Exam: R07.9 - Chest pain, unspecified EXERCISE MYOCARDIAL PERFUSION STUDY INDICATION: Abnormal EKG TECHNIQUE: The patient was brought in for an exercise perfusion study on 02/24/2025. Patient performed exercise as per Joel protocol and was injected 30 mCi of sestamibi once target heart rate was achieved. Images were obtained using the SPECT gamma camera interlaced with the gating device. Images were obtained in supine position. Resting perfusion study was performed on 02/28/2025. Patient was administered 30 mCi of sestamibi intravenously at rest. Images were then obtained in supine position. Total DLP 68 mGy-cm. Images were processed with the software and compared side to side in short axis, horizontal long axis and vertical long axis views. FINDINGS: Raw aquisition reviewed. The stress perfusion study showed mildly decreased tracer uptake in the basal part of inferior wall. There is improvement with CT attenuation correction suggestive of diaphragmatic attenuation artifact. The gated study shows mildly decreased LV systolic function with calculated LVEF of 45%. LV cavity is normal in size. The gated study shows normal wall thickening and contraction of segments. Resting study shows no significant perfusion abnormality. Gating at rest reveals normal wall motion with ejection fraction at 47%. The findings are consistent with mild reversible basal inferior defect, probably artifactual. NM/NM cardiolite stress test IMPRESSION: 1. Myocardial perfusion imaging study shows no clear evidence of ischemia or infarction. 2. Gated LVEF is 45% during stress and 47% during rest, but visually appears higher. Correlate with echocardiogram. 3. Transient ischemic dilatation not present. EKG component of the test reported separately. Electronically signed by: Bennett Grimaldo MD 02/28/2025 04:00 PM EDT RP Dictated By: Bennett Grimaldo MD Signed By: <Electronically signed by Bennett Grimaldo MD inOV> 02/28/25 1600 DD/ 1028 TD/TT: 02/28/25 0820 [place] Regulator: [facility] External Provider CV STRE SS PROCEDURES Final Result Performing Organization Address City/State/[facility] Co de Phone Number [facility] [address] [place] [phone] * XR Hand 3+Views Bilateral (01/28/2025 10:55 AM EDT) Anatomical Region Laterality Modality Upper Extremities, Hand Bilateral Radiogra phic Imaging 01/28/2025 10:5 5 AM EDT Narrative 01/28/2025 11:40 AM EDT [address] [address] XRay Report Signed Patient: Ag Gill MR#: [id number] 185 : 1960 Acct:[id number] Age/Sex: 64 / M ADM Date: 01/28/25 Loc: TIM Attending Dr: Autumn Patel MD Ordering Physician: Cher Tellez MD Date of Service: 01/28/25 Procedure(s): XR Hand Bilat min 3v Accession Number(s): [id number] cc: Cher Tellez MD; Citlali Tee NP [...] 01/28/25 1137 DD/ 1055 TD/TT: 01/28/25 1107 [place] Regulator: Procedure Note Donotuseinterpreter, Image - 01/28/[address] [address] XRay Report Signed Patient: Ag Gill HMR#: [id number] 185 : 9Acct:[id number] Age/Sex: 64 / MADM Date: 01/28/25 Loc: [facility] Attending Dr: Autumn Patel MD Ordering Physician: Cher Tellez MD Date of Service: 01/28/25 Procedure(s): XR Hand Bilat min 3v Accession Number(s): [id number] cc: Cher Tellez MD; Citlali Tee NP [...] 01/28/25 1137 DD/ 1055 TD/TT: 01/28/25 1107 [place] Regulator: us [facility] External Provider IMG XR PROCEDURES Final Result * XR Wrist 3+ Views Bilateral (01/28/2025 10:42 AM EDT) Anatomical Region Laterality Modality Upper Extremities, Wrist Bilateral Radiogr aphic Imaging 01/28/2025 10:4 2 AM EDT Narrative 01/28/2025 11:40 AM EDT [address] [address] XRay Report Signed Patient: Ag Gill MR#: [id number] 185 : 1960 Acct:[id number] Age/Sex: 64 / M ADM Date: 01/28/25 Loc: [facility] Attending Dr: Autumn Patel MD Ordering Physician: Cher Tellez MD Date of Service: 01/28/25 Procedure(s): XR Wrist Joel min 3V Accession Number(s): [id number] cc: Cher Tellez MD; Citlali Tee NP [...] 01/28/25 1137 DD/ 1042 TD/TT: 01/28/25 1107 [place] Regulator: Procedure Note Donotuseinterpreter, Image - 01/28/2025 [place] [address] XRay Report Signed Patient: Ag Gill R#: [id number] 185 : 9Acct:[id number] Age/Sex: 64 / MADM Date: 01/28/25 Loc: TIM Attending Dr: Autumn Patel MD Ordering Physician: Cher Tellez MD Date of Service: 01/28/25 Procedure(s): XR Wrist Joel min 3V Accession Number(s): [id number] cc: Cher Tellez MD; Citlali Tee NP [...] 01/28/25 1137 DD/ 1042 TD/TT: 01/28/25 1107 [place] Regulator: [facility] External Provider IMG XR PROCEDURES Final Result * XR Lumbar Spine Complete 4+ Views (01/28/2025 10:42 AM EDT) Anatomical Region Laterality Modality Spine, L-spine Radiographic Mary ging 01/28/2025 10:4 2 AM EDT Narrative 01/28/2025 11:17 AM EDT [place] [address] XRay Report Signed Patient: Ag Gill MR#: [id number] 185 : 1960 Acct:[id number] Age/Sex: 64 / M ADM Date: 01/28/25 Loc: HO.XRAY Attending Dr: Autumn Patel MD Ordering Physician: Cher Tellez MD Date of Service: 01/28/25 Procedure(s): XR lumbar spine 4V min Accession Number(s): [id number] cc: Cher Tellez MD; Citlali Tee NP [...] 01/28/25 1114 DD/ 1042 TD/TT: 01/28/25 1107 [place] Regulator: Procedure Note Donotuseinterpreter, Image - 01/28/[address] [address] XRay Report Signed Patient: Ag Gill HMR#: [id number] 185 : 9Acct:[id number] Age/Sex: 64 / MADM Date: 01/28/25 Loc: HO.XRAY Attending Dr: Autumn Patel MD Ordering Physician: Cher Tellez MD Date of Service: 01/28/25 Procedure(s): XR lumbar spine 4V min Accession Number(s): [id number] cc: Cher Tellez MD; Citlali Tee NP [...] 01/28/25 1114 DD/ 1042 TD/TT: 01/28/25 1107 [place] Regulator: [facility] External Provider IMG XR PROCEDURES Final Result * XR Shoulder 2+ Views Bilateral (01/28/2025 10:39 AM EDT) Anatomical Region Laterality Modality Upper Extremities, Shoulder Bilateral Radi ographic Imaging 01/28/2025 10:3 9 AM EDT Narrative 01/28/2025 11:28 AM EDT [address] [address] XRay Report Signed Patient: Ag Gill MR#: [id number] 185 : 1960 Acct:[id number] Age/Sex: 64 / M ADM Date: 01/28/25 Loc: TIM Attending Dr: Autumn Patel MD Ordering Physician: Cher Tellez MD Date of Service: 01/28/25 Procedure(s): XR Shoulder Joel min 2V Accession Number(s): [id number] cc: Cher Tellez MD; Citlali Tee NP [...] Zane Esqueda MD 01/28/2025 11:25 AM EDT Dictated By: Zane Esqueda MD Signed By: <Electronically signed by Zane Esqueda MD in OV> 01/28/25 1125 DD/ 1039 TD/TT: 01/28/25 1107 [place] Regulator: Procedure Note Jose, Image - 01/28/[address] [address] XRay Report Signed Patient: Ag Gill HMR#: [id number] 185 : 9Acct:[id number] Age/Sex: 64 / MADM Date: 01/28/25 Loc: HO.XRAY Attending Dr: Autumn Patel MD Ordering Physician: Cher Tellez MD Date of Service: 01/28/25 Procedure(s): XR Shoulder Joel min 2V Accession Number(s): [id number] cc: Cher Tellez MD; Citlali Tee NP [...] 01/28/25 1125 DD/ 1039 TD/TT: 01/28/25 1107 [place] Regulator: [facility] External Provider IMG XR PROCEDURES Final Result * XR Thoracic Spine 3 Views (01/28/2025 10:38 AM EDT) Anatomical Region Laterality Modality Spine, T-spine Radiographic Mary ging 01/28/2025 10:3 8 AM EDT Narrative 01/28/2025 11:14 AM EDT [place] [address] XRay Report Signed Patient: Ag Gill MR#: [id number] 185 : 1960 Acct:[id number] Age/Sex: 64 / M ADM Date: 01/28/25 Loc: HO.XRAY Attending Dr: Autumn Patel MD Ordering Physician: Cher Tellez MD Date of Service: 01/28/25 Procedure(s): XR thoracic spine 3V Accession Number(s): [id number] cc: Cher Tellez MD; Citlali Tee NP [...] 01/28/25 1111 DD/ 1038 TD/TT: 01/28/25 1107 [place] Regulator: Procedure Note Jose, Image - 01/28/2025 [place] [address] XRay Report Signed Patient: Ag Gill HMR#: [id number] 185 : 9Acct:[id number] Age/Sex: 64 / MADM Date: 01/28/25 Loc: [facility] Attending Dr: Autumn Patel MD Ordering Physician: Cher Tellez MD Date of Service: 01/28/25 Procedure(s): XR thoracic spine 3V Accession Number(s): [id number] cc: Cher Tellez MD; Citlali Tee NP [...] 01/28/25 1111 DD/ 1038 TD/TT: 01/28/25 1107 [place] Regulator: [facility] External Provider IMG XR PROCEDURES Final Result * Hepatitis B, C Profile (01/14/2025 12:20 PM EDT) Pathologist [facility] [place] ~Hepatitis B Surface Antibody REACTIVE Nonreactive [facility] Comment:REACTIVE: > 11.99 mI U/mL Hepatitis B Core Antibody Reactive Nonreactive [facility] Comment:Presumptive evidence of anti-HBc. Hepatitis C Antibody Nonreactive Nonreactive [facility] Comment:Antibodies to HCV no t detected; does not exclude early acuteHCV infection. Hepatitis B Surface Ag Negative Negative [facility] 01/14/2025 12:2 0 PM EDT 01/14/2025 12:20 PM EDT us Generic External Data Provider LAB BLOOD ORDERAB LES Final Result [facility] [address] [place] [phone] * (ABNORMAL) CBC auto differential (01/14/2025 12:20 PM EDT) [facility] White Blood Count 5.4 4.8 - 10.8 X10*3/uL [facility] Red Blood Count 4.03(L) 4.60 - 5.80 X10*6/uL [facility] Hemoglobin 12.3(L) 14.0 - 18.0 g/dl [facility] Hematocrit 37.4(L) 42.0 - 52.0 % [facility] Mean Corpuscular Volume 92.8 80.0 - 98.0 fL [facility] Mean Corpuscular Hemoglobin 30.5 27.0 - 33.0 pg [facility] Mean Corpuscular HGB Conc 32.9 31.0 - 36.0 g/dl [facility] Red Cell Distribution Width 13.5 11.0 - 16.0 % [facility] Platelet Count 257 160 - 400 X10*3/uL [facility] Mean Platelet Volume 10.4 9.4 - 12.4 fL [facility] Neutrophils Percent Auto 62.1 45 - 73 % [facility] Imm Gran Pct Auto 0.6(H) 0.0 - 0.4 % [facility] Lymphocytes Percent Auto 24.8 20 - 40 % [facility] Monocytes Percent Auto 8.6 2 - 11 % [facility] Eosinophils Percent Auto 3.3 0 - 4 % [facility] Basophils Percent Auto 0.6 0 - 2 % [facility] NRBC Pct Auto 0.0 0.0 - 0.2 /100WBC [facility] Neutrophils Absolute Auto 3.4 2.0 - 8.3 x10*3/uL [facility] Imm Gran Abs Auto 0.03 0.00 - 0.03 X10*3/uL [facility] Lymphocytes Absolute Auto 1.4 1.2 - 4.9 X10*3/uL [facility] Monocytes Absolute Auto 0.5 0.1 - 1.2 X10*3/uL [facility] Eosinophils Absolute Auto 0.2 0.0 - 0.4 X10*3/uL [facility] Basophils Absolute Auto 0.0 0.0 - 0.2 X10*3/uL [facility] NRBC Abs Auto 0.000 0.0 - 0.012 X10*3/uL [facility] 01/14/2025 12:2 0 PM EDT 01/14/2025 12:20 PM EDT us Generic External Data Provider LAB BLOOD ORDERAB LES Final Result [facility] [address] [place] [phone] * Sed Rate by Modified Yasmeenren (01/14/2025 12:20 PM EDT) Erythrocyte Sedimentation Rate 7 0 - 15 MM/HR [facility] Comment:Patients with polycy themia and many hemoglobin abnormalitiesmay have depressed sed rates whereas patients with anemiamay have elevated sed rates. 01/14/2025 12:2 0 PM EDT 01/14/2025 12:20 PM EDT us Generic External Data Provider LAB BLOOD ORDERAB LES Final Result Performing Organization Address City/[facility]/ZIP Co de Phone Number [facility] [address] [place] [phone] * C-reactive Protein (01/14/2025 12:20 PM EDT) [facility] C Reactive Protein 0.16 < or = 0.50 mg/dL [facility] 01/14/2025 12:2 0 PM EDT 01/14/2025 12:20 PM EDT Generic External Data Provider LAB BLOOD ORDERAB LES Final Result Performing Organization Address [facility] Co de Phone Number [facility] [address] [place] [phone] * (ABNORMAL) Comprehensive Metabolic Panel (01/14/2025 12:20 PM EDT) [facility] Sodium 141 135 - 145 mmol/L [facility] Potassium 3.6 3.3 - 5.1 mmol/L [facility] Chloride 107 96 - 108 mmol/L [facility] Carbon Dioxide 26 22 - 29 mmol/L [facility] Anion Gap 12 12 - 20 [facility] Urea Nitrogen (BUN) 23(H) 9 - 16 mg/dL [facility] Creatinine, Serum 1.09 0.5 - 1.4 mg/dL [facility] Estimated Glomerular Filt Rate >60 [facility] Comment:Chronic Kidney Disea se: Estimated GFR < 60 mL/min/1.86b4Eczpgf Kidney Disease: Estimated GFR < 15 mL/min/1.73m2 Glucose 147(H) 60 - 115 mg/dL [facility] Calcium 10.6(H) 8.4 - 10.2 mg/dL [facility] Bilirubin, Total 0.3 0.0 - 1.0 mg/dL [facility] Aspartate Amino Transferase 23 5 - 37 U/L [facility] Alanine Aminotransferase 28 0 - 40 U/L [facility] Total Protein 7.6 6.5 - 8.0 g/dL [facility] Albumin Level 4.5 3.5 - 5.0 g/dL [facility] Alkaline Phosphatase 95 39 - 117 U/L [facility] 01/14/2025 12:2 0 PM EDT 01/14/2025 12:20 PM EDT us Generic External Data Provider LAB BLOOD ORDERAB LES Final Result Performing Organization Address [facility] Co de Phone Number [facility] [address] [place] [phone] * (ABNORMAL) Basic Metabolic Panel (01/07/2025 9:33 AM EDT) Sodium 141 135 - 145 mmol/L [facility] Potassium 3.7 3.3 - 5.1 mmol/L [facility] Chloride 107 96 - 108 mmol/L [facility] Carbon Dioxide 27 22 - 29 mmol/L [facility] Anion Gap 11(L) 12 - 20 [facility] Urea Nitrogen (BUN) 17(H) 9 - 16 mg/dL [facility] Creatinine, Serum 0.96 0.5 - 1.4 mg/dL [facility] Estimated Glomerular Filt Rate >60 [facility] Comment:Chronic Kidney Disea se: Estimated GFR < 60 mL/min/1.64n0Yguynv Kidney Disease: Estimated GFR < 15 mL/min/1.73m2 Glucose 106 60 - 115 mg/dL [facility] Calcium 10.5(H) 8.4 - 10.2 mg/dL [facility] 01/07/2025 9:33 AM EDT 01/07/2025 9:33 AM EDT us Generic External Data Provider LAB BLOOD ORDERAB LES Final Result Performing Organization Address [facility] Co de Phone Number [facility] [address] [place] [phone] * Hemoglobin A1c (03/08/2024 9:40 AM EST) Hemoglobin A1c 5.7 <6.0 % [facility] Comment:Hemoglobin A1C Refer ence Range Adults: 4.8 - 6.0 % Non diabetic: < 6.0 % Goal: < 7.0 %Additional Action Suggested: > 8.0 %Note: Hemoglobin A1c results are invalid for patients with abnormal amounts of HbF. Blood transfusions may impact the HbA1c concentration in the patient sample. Estimated Average Glucose 117 mg/dL [facility] Comment:eAG = Estimated ave rage glucose which is %A1C expressed asaverage glucose, using the formula of the [id number] Glucose study (ADAG), Diabetes Care, Vol.31,#8,Dec. 2007 Blood Venous blood specimen / Unknown 03/08/2024 9:40 AM EST 03/08/2024 11:04 AM EST us Citlali Tee TOOL LATHE OPERATOR LAB BLOOD ORDERABLES Final Resul t [facility] [address] [place] [phone] * Lipid Panel, Standard (07/14/2023 10:50 AM EDT) Triglycerides 100 <150 mg/dL [facility] Comment:Desirable Triglyceri de: less than 150 mg/dLBorderline High Triglyceride 150-199 mg/dLHigh Triglyceride: 200-499 mg/dLVery High Triglyceride: greater than or equal to 5OO mg/dL Cholesterol 137 <200 mg/dL [facility] Comment:Desirable Cholestero l: less than 200 mg/dLBorderline High Cholesterol: 200-239 mg/dLHigh Cholesterol: greater than 239 mg/dL LDL Cholesterol Calculated 74 <100 mg/dL [facility] Comment:Desirable LDL: less than 100 mg/dLNear Optimal/Above Optimal LDL: 110- 129 mg/dLBorderline High LDL: 130-159 mg/dLHigh LDL: 160-189 mg/dLVery High LDL: greater than or equal to 190 mg/dL HDL Cholesterol 43 >40 mg/dL [facility] Comment:Desirable HDL: great er than 40 mg/dL Note: This HDL assay may give artificially low results in patients with liver disease. Blood Venous blood specimen / Unknown 07/14/2023 10:50 AM EDT 07/14/2023 1:02 PM EDT us Saba Hatfield MD LAB BLOOD ORDERABLES Final Result [facility] [address] [place] [phone] * Colonoscopy (05/02/2022) Colonoscopy Normal Normal us Shawanda Feldman NP HEALTH MAINTENANCE Edited Resul t - Final from Last 3 Months or Most Recently Relevant to Health Maintenance [place] [address] , [address] [address] [facility] MEDICARE Care Teams Golf Course Assistant Relationship Specialty Start Date End Date Citlali Tee NP [address] [place] [phone] PCP - General Family Medicine 07/14/23
--- OUTSIDE RECORDS SUMMARY | 2025-03-07 11:25 | XMS_ITS | Encounter Summary ---
Author Organization [employer] Address [address] [facility] [address] [place] [address] Care Team Providers Care Performance Improvement Analyst Name Role Phone Citlali Tee NP Primary Care Provider [phone] Reason for Visit * Reason Comments Med Refill Encounter Details Date Type Department Care Team (Late st Contact Info) Description 05/23/2024 Refill [facility] [address] [place], [place] [phone] Citlali Tee NP [address], [place] [phone] Essential hypertension; Primary hypertension; Other hyperlipidemia Social [...] documented as of this encounter Care Teams Performance Improvement Analyst Relationship Specialty Start Date End Date Citlali Tee NP [address] [place] [phone] PCP - General Family Medicine 07/14/23 documented as of this encounter
== END 2025-03-07 10:36 | disposition home or self-care (01) ==
LOC: HO.HCS 09:50
PROVIDERS: PCP Nurse Practitioner Family; Visit Provider Nurse Practitioner Family
DX: I10 Essential (primary) hypertension (principal); R94.31 Abnormal electrocardiogram [ECG] [EKG]; I51.7 Cardiomegaly
CPT/HCPCS: 99214; G2211

== ENCOUNTER → 2025-03-07 09:49 | Outpatient (BNVA) | payer MEDICARE, MEDICAID, SELFPAY | PROVIDERS: PCP Nurse Practitioner Family; Visit Provider Nurse Practitioner Family | DX: I10 Essential (primary) hypertension (principal); R94.31 Abnormal electrocardiogram [ECG] [EKG]; I51.7 Cardiomegaly; E78.5 Hyperlipidemia, unspecified; E21.3 Hyperparathyroidism, unspecified | CPT/HCPCS: 99212 ==

== ENCOUNTER 2025-04-19 08:58 | Outpatient (REF) | payer MEDICARE, MEDICAID, SELFPAY ==
[2025-04-19 10:03] LABS: Prostate Specific Antigen 3.55 ng/mL (<0.05-4.0)
--- OUTSIDE RECORDS SUMMARY | 2025-04-19 10:04 | XMS_ITS | Encounter Summary ---
Author Organization [employer] Address [address] [facility] 7t [place] [address] Care Team Providers Care Data Entry Specialist Name Role Phone Citlali Tee JANE Primary Care Provider [phone] Encounter Details Date Type Department Care Team (Late st Contact Info) Description 12/26/2023 Orders Only [facility] [address] [place] [address] Provider, MD Claude Social History Tobacco Use [...] documented as of this encounter Care Teams Data Entry Specialist Relationship Specialty Start Date End Date Citlali Tee NP [address] [place] [address] PCP - General Family Medicine 07/14/23 documented as of this encounter
--- OUTSIDE RECORDS SUMMARY | 2025-04-19 10:04 | XMS_ITS | Clinical Summary ---
Author Organization [facility] Address [address] [place] [address] Phone Care Team Providers Care Sales Lead Name Role Phone Physician, Pcp Unknown Primary [...] mmol/L LAB CHEMISTRY METHOD 09/21/2024 8:46 AM [facility] Potassium 3.9 3.5 - 5.5 mmol/L LAB CHEMISTRY METHOD 09/21/2024 8:46 AM [facility] Chloride 106 96 - 110 mmol/L LAB CHEMISTRY METHOD 09/21/2024 8:46 AM [facility] CO2 24 21 - 32 mmol/L LAB CHEMISTRY METHOD 09/21/2024 8:46 AM [facility] Anion Gap 6 3 - 11 LAB CHEMISTRY METHOD 09/21/2024 8:46 AM [facility] Glucose 118(H) 70 - 100 mg/dL LAB CHEMISTRY METHOD 09/21/2024 8:46 AM [facility] BUN 17 5 - 25 mg/dL LAB CHEMISTRY METHOD 09/21/2024 8:46 AM [facility] Creatinine 1.10 0.70 - 1.30 mg/dL LAB CHEMISTRY METHOD 09/21/2024 8:46 AM [facility] eGFR 74 >=60 mL/min/1. 73m2 LAB CHEMISTRY METHOD 09/21/2024 8:46 AM [facility] Comment:Calculation based on the Chronic Kidney Disease Epidemiology Collaboration (CKD-EPI) equation refit without adjustment for race. BUN/Creatinine Ratio 15.5 LAB CHEMISTRY METHOD 09/21/2024 8:46 AM [facility] Calcium 11.2(H) 8.5 - 10.5 mg/dL LAB CHEMISTRY METHOD 09/21/2024 8:46 AM [facility] AST (SGOT) 29 10 - 42 unit/L LAB CHEMISTRY METHOD 09/21/2024 8:46 AM [facility] ALT (SGPT) 31 10 - 60 unit/L LAB CHEMISTRY METHOD 09/21/2024 8:46 AM EDT [facility] Alkaline Phosphatase 107 42 - [...] LAB CHEMISTRY METHOD 09/21/2024 8:46 AM T [facility] Blood Venous blood specimen / Unknown Venipuncture / Unknown 09/21/2024 7:48 AM EDT 09/21/2024 8:14 AM EDT us Lei Mario MD LAB BLOOD ORDERABLES Final Result [facility] [address] [place] [address], from Last 3 Months or Most Recently Relevant to Health Maintenance Insurance MEDICARE MEDICAID - [place] Care Teams Sales Lead Relationship Specialty Start Date End Date Physician, Pcp Unknown PCP - General 09/21/24
--- OUTSIDE RECORDS SUMMARY | 2025-04-19 10:04 | XMS_ITS | Encounter Summary ---
Author Organization [employer] Address [address] [facility] 7t [place] [address] Care Team Providers Care Pyrotechnic Mixer Name Role Phone Citlali eTe NP Primary Care Provider Reason for Visit * Reason Onset Date Comments Med Refill 09/06/2024 Encounter Details Date Type Department Care Team (Late st Contact Info) Description 09/06/2024 Refill [facility] [address] [place], [place] [phone] Sarah Mukherjee NP [address] [place], [place] [phone] Arthralgia of both hands Social History Tobacco [...] documented as of this encounter Care Teams Pyrotechnic Mixer Relationship Specialty Start Date End Date Citlali Tee NP [address] [place] [phone] PCP - General Family Medicine 07/14/23 documented as of this encounter
--- OUTSIDE RECORDS SUMMARY | 2025-04-19 10:04 | XMS_ITS | Encounter Summary ---
Author Organization [employer] Address [address] [facility] 7t [place] [address] Care Team Providers Care Manager Studio Name Role Phone Citlali Tee NP Primary Care Provider [phone] Reason for Visit * Reason Comments Med Refill Encounter Details Date Type Department Care Team (Late st Contact Info) Description 05/23/2024 Refill [facility] [address] [place], [place] [phone] Citlali Tee NP [address] [place], [place] [phone] Essential hypertension; Primary hypertension; Other hyperlipidemia Social [...] documented as of this encounter Care Teams Manager Studio Relationship Specialty Start Date End Date Citlali Tee NP [address] [place] [address] PCP - General Family Medicine 07/14/23 documented as of this encounter
--- OUTSIDE RECORDS SUMMARY | 2025-04-19 10:04 | XMS_ITS | Clinical Summary ---
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 ([facility]) 08/10/2024 Assessment & Plan (08/12/2024 6:47 PM [...] Type Department Care Team Description 03/02/2025 Refill [facility] [address] [place] [address] Citlali Tee NP Other hyperlipidemia; Essential hypertension; Primary hypertension 01/28/2025 Orders Only [facility] External Provider, [facility] from Last 3 Months Immunizations Immunization [...] 2025 , 05/27/2019, 04/30/2018, Additional history exists SDOH Screening 08/10/2025 08/10/2024 [...] C PROFILE Routine 01/14/2025 12:20 PM EDT LIPID PANEL, STANDARD Routine 07/14/2023 10:50 AM EDT Essential hypertension Arthralgia of both hands Mixed hyperlipidemia Primary hypertension HM COLONOSCOPY Routine 05/02/2022 from Last 3 Months or Most Recently Relevant to Health Maintenance Results * Stress test with myocardial perfusion (02/24/2025 10:28 AM EDT) 02/24/2025 10:2 8 AM EDT Narrative [facility] - 02/28/2025 4:03 PM EDT [address] [address] Nuclear Medicine Report Signed Patient: Ag Gill MR#: [id number] 185 : 1960 Acct:[id number] Age/Sex: 64 / M ADM Date: 02/24/25 Loc: .[facility] Attending Dr: Zheng Pal MD Ordering Physician: Zheng Pal MD Date of Service: 02/24/25 Procedure(s): NM cardiolite stress test Accession Number(s): [id number] cc: Citlali Tee CABLE ARMORER; Zheng Pal MD Reason for Exam: R07.9 [...] 02/28/25 1600 DD/ 1028 TD/TT: 02/28/25 0820 Mental Health Program Manager: Procedure Note Donotuseinterpreter, Image - 02/28/2025 [place] [address] Nuclear Medicine Report Signed Patient: Ag Gill R#: [id number] 185 : 9Acct:[id number] Age/Sex: 64 / MADM Date: 02/24/25 Loc: [facility] Attending Dr: Zheng Pal MD Ordering Physician: Zheng Pal MD Date of Service: 02/24/25 Procedure(s): [place] cardiolite stress test Accession Number(s): [id number] cc: Citlali Tee CABLE ARMORER; Zheng Pal MD Reason for Exam: R07.9 [...] 02/28/25 1600 DD/ 1028 TD/TT: 02/28/25 0820 Mental Health Program Manager: us [facility] External Provider CV STRE SS PROCEDURES Final Result [facility] [address] [place] [phone] * XR Hand 3+Views Bilateral (01/28/2025 10:55 AM EDT) Anatomical Region Laterality Modality Upper Extremities, Hand Bilateral [facility] 01/28/2025 10:5 5 AM EDT Narrative 01/28/2025 11:40 AM EDT [address] [address] XRay Report Signed Patient: Ag Gill MR#: [id number] 185 : 1960 Acct:[id number] Age/Sex: 64 / M ADM Date: 01/28/25 Loc: TIM Attending Dr: Autumn Patel MD Ordering Physician: Cher Tellez MD Date of Service: 01/28/25 Procedure(s): XR Hand Bilat min 3v Accession Number(s): [id number] cc: Cher Tellez MD; Citlali Tee NP [...] 01/28/25 1137 DD/ 1055 TD/TT: 01/28/25 1107 Mental Health Program Manager: Procedure Note Donotuseinterpreter, Image - 01/28/[address] [address] XRay Report Signed Patient: Ag Gill HMR#: [id number] 185 : 9Acct:[id number] Age/Sex: 64 / MADM Date: 01/28/25 Loc: [facility] Attending Dr: Autumn Patel MD Ordering Physician: Cher Tellez MD Date of Service: 01/28/25 Procedure(s): XR Hand Bilat min 3v Accession Number(s): [id number] cc: Cher Tellez MD; Citlali Tee NP [...] 01/28/25 1137 DD/ 1055 TD/TT: 01/28/25 1107 Mental Health Program Manager: [facility] External Provider IMG XR PROCEDURES Final Result * XR Wrist 3+ Views Bilateral (01/28/2025 10:42 AM EDT) Anatomical Region Laterality Modality Upper Extremities, Wrist Bilateral Radiogr [facility] Imaging 01/28/2025 10:4 2 AM EDT Narrative 01/28/2025 11:40 AM EDT [address] [address] XRay Report Signed Patient: Ag Gill MR#: [id number] 185 : 1960 Acct:[id number] Age/Sex: 64 / M ADM Date: 01/28/25 Loc: TIM Attending Dr: Autumn Patel MD Ordering Physician: Cher Tellez MD Date of Service: 01/28/25 Procedure(s): XR Wrist Joel min 3V Accession Number(s): [id number] cc: Cher Tellez MD; Citlali Tee NP [...] 01/28/25 1137 DD/ 1042 TD/TT: 01/28/25 1107 Mental Health Program Manager: Procedure Note Donotuseinterpreter, Image - 01/28/[address] [address] XRay Report Signed Patient: Ag Gill R#: [id number] 185 : 9Acct:[id number] Age/Sex: 64 / MADM Date: 01/28/25 Loc: [facility] Attending Dr: Autumn Patel MD Ordering Physician: Cher Tellez MD Date of Service: 01/28/25 Procedure(s): XR Wrist Joel min 3V Accession Number(s): [id number] cc: Cher Tellez MD; Citlali Tee NP [...] 01/28/25 1137 DD/ 1042 TD/TT: 01/28/25 1107 Mental Health Program Manager: [facility] External Provider IMG XR PROCEDURES Final Result * XR Lumbar Spine Complete 4+ Views (01/28/2025 10:42 AM EDT) Anatomical Region Laterality Modality Spine, L-spine Radiographic Mary ging 01/28/2025 10:4 2 AM EDT Narrative 01/28/2025 11:17 AM EDT [place] [address] XRay Report Signed Patient: Ag Gill MR#: [id number] 185 : 1960 Acct:[id number] Age/Sex: 64 / M ADM Date: 01/28/25 Loc: TIM Attending Dr: Autumn Patel MD Ordering Physician: Cher Tellez MD Date of Service: 01/28/25 Procedure(s): XR lumbar spine 4V min Accession Number(s): [id number] cc: Cher Tellez MD; Citlali Tee NP [...] Trevor Mckay MD 01/28/2025 11:14 AM EDT RP Dictated By: Trevor John MD Signed By: <Electronically signed by Trevor Juárez MD in OV> 01/28/25 1114 DD/ 1042 TD/TT: 01/28/25 1107 Mental Health Program Manager: Procedure Note Donotuseinterpreter, Image - 01/28/[address] [address] XRay Report Signed Patient: Ag Gill HMR#: [id number] 185 : 9Acct:[id number] Age/Sex: 64 / MADM Date: 01/28/25 Loc: [facility] Attending Dr: Autumn Patel MD Ordering Physician: Cher Tellez MD Date of Service: 01/28/25 Procedure(s): XR lumbar spine 4V min Accession Number(s): [id number] cc: Cher Tellez MD; Citlali Tee NP [...] Trevor Mckay MD 01/28/2025 11:14 AM EDT RP Dictated By: Trevor John MD Signed By: <Electronically signed by Trevor Juárez MDin OV> 01/28/25 1114 DD/ 1042 TD/TT: 01/28/25 1107 Mental Health Program Manager: us [facility] External Provider IMG XR PROCEDURES Final Result * XR Shoulder 2+ Views Bilateral (01/28/2025 10:39 AM EDT) Anatomical Region Laterality Modality Upper Extremities, Shoulder Bilateral Radi ographic Imaging 01/28/2025 10:3 9 AM EDT Narrative 01/28/2025 11:28 AM EDT [place] [address] XRay Report Signed Patient: Ag Gill MR#: [id number] 185 : 1960 Acct:[id number] Age/Sex: 64 / M ADM Date: 01/28/25 Loc: TIM Attending Dr: Autumn Patel MD Ordering Physician: Cher Tellez MD Date of Service: 01/28/25 Procedure(s): XR Shoulder Joel min 2V Accession Number(s): [id number] cc: Cher Tellez MD; Citlali Tee NP [...] 01/28/25 1125 DD/ 1039 TD/TT: 01/28/25 1107 Mental Health Program Manager: Procedure Note Donotuseinterpreter, Image - 01/28/2025 [place] [address] XRay Report Signed Patient: Ag Gill HMR#: [id number] 185 : 9Acct:[id number] Age/Sex: 64 / MADM Date: 01/28/25 Loc: TIM Attending Dr: Autumn Patel MD Ordering Physician: Cher Tellez MD Date of Service: 01/28/25 Procedure(s): XR Shoulder Joel min 2V Accession Number(s): [id number] cc: Cehr Tellez MD; Citlali Tee NP Reason for [...] 01/28/25 1125 DD/ 1039 TD/TT: 01/28/25 1107 Mental Health Program Manager: [facility] External Provider IMG XR PROCEDURES Final Result * XR Thoracic Spine 3 Views (01/28/2025 10:38 AM EDT) Anatomical Region Laterality Modality Spine, T-spine Radiographic Mary ging 01/28/2025 10:3 8 AM EDT Narrative 01/28/2025 11:14 AM EDT [place] [address] XRay Report Signed Patient: Ag Gill MR#: [id number] 185 : 1960 Acct:[id number] Age/Sex: 64 / M ADM Date: 01/28/25 Loc: [facility] Attending Dr: Autumn Patel MD Ordering Physician: Cher Tellez MD Date of Service: 01/28/25 Procedure(s): XR thoracic spine 3V Accession Number(s): [id number] cc: Cher Tellez MD; Citlali Tee NP [...] 01/28/25 1111 DD/ 1038 TD/TT: 01/28/25 1107 Mental Health Program Manager: Procedure Note Donotuseinterpreter, Image - 01/28/2025 [place] [address] XRay Report Signed Patient: Ag Gill HMR#: [id number] 185 : 9Acct:[id number] Age/Sex: 64 / MADM Date: 01/28/25 Loc: TIM Attending Dr: Autumn Patel MD Ordering Physician: Cher Tellez MD Date of Service: 01/28/25 Procedure(s): XR thoracic spine 3V Accession Number(s): [id number] cc: Cher Tellez MD; Citlali Tee NP [...] John MD Signed By: <Electronically signed by Jayy Regan OV> 01/28/25 1111 DD/ 1038 TD/TT: 01/28/25 1107 Mental Health Program Manager: [facility] External Provider IMG XR PROCEDURES Final Result * Hepatitis B, C Profile (01/14/2025 12:20 PM EDT) Pathologist [facility] ~Hepatitis B Surface Antibody REACTIVE Nonreactive [facility] Comment:REACTIVE: > 11.99 mI U/mL Hepatitis B Core Antibody Reactive Nonreactive [facility] Comment:Presumptive evidence of anti-HBc. Hepatitis C Antibody Nonreactive Nonreactive [facility] Comment:Antibodies to HCV no t detected; does not exclude early acuteHCV infection. Hepatitis B Surface Ag Negative Negative [facility] 01/14/2025 12:2 0 PM EDT 01/14/2025 12:20 PM EDT Generic External Data Provider LAB BLOOD ORDERAB LES Final Result Performing Organization Address City/State/[facility] Co de Phone Number [facility] [address] [place] [phone] * Lipid Panel, Standard (07/14/2023 10:50 AM EDT) Triglycerides 100 <150 mg/dL [facility] Comment:Desirable Triglyceri de: less than 150 mg/dLBorderline High Triglyceride 150-199 mg/dLHigh Triglyceride: 200-499 mg/dLVery High Triglyceride: greater than or equal to 5OO mg/dL Cholesterol 137 <200 mg/dL [facility] Comment:Desirable Cholestero l: less than 200 mg/dLBorderline High Cholesterol: 200-239 mg/dLHigh Cholesterol: greater than 239 mg/dL LDL Cholesterol Calculated 74 <100 mg/dL [facility] Comment:Desirable LDL: less than 100 mg/dLNear Optimal/Above Optimal LDL: 110- 129 mg/dLBorderline High LDL: 130-159 mg/dLHigh LDL: 160-189 mg/dLVery High LDL: greater than or equal to 190 mg/dL HDL Cholesterol 43 >40 mg/dL [facility] Comment:Desirable HDL: great er than 40 mg/dL Note: This HDL assay may give artificially low results in patients with liver disease. Blood Venous blood specimen / Unknown 07/14/2023 10:50 AM EDT 07/14/2023 1:02 PM EDT us Saba Hatfield MD LAB BLOOD ORDERABLES Final Result [facility] [address] [place] [phone] * Colonoscopy (05/02/2022) Colonoscopy Normal Normal Shawanda Feldman NP HEALTH MAINTENANCE Edited Resul t - Final from Last 3 Months or Most Recently Relevant to Health Maintenance [place] [address] [address] [place] [address] , [id number] [place] [address] MEDICARE Care Teams Yard Stocker Relationship Specialty Start Date End Date Citlali Tee NP [address] [place] [phone] PCP - General Family Medicine 07/14/23
--- OUTSIDE RECORDS SUMMARY | 2025-04-19 10:04 | XMS_ITS | Encounter Summary ---
Author Organization [employer] Address [address] [facility] 7t [place] [address] Care Team Providers Care Tip Banding Machine Operator Name Role Phone Citlali Tee JANE Primary Care Provider [phone] Reason for Visit * Reason Onset Date Comments Med Refill 09/06/2024 Encounter Details Date Type Department Care Team ([facility] st Contact Info) Description 09/06/2024 Refill [facility] [address] [place], [place] [phone] Name, MD Ayden [address] [place] [address] Other hyperlipidemia Social History Tobacco Use Types [...] documented as of this encounter Care Teams Tip Banding Machine Operator Relationship Specialty Start Date End Date Citlali Tee NP [address] [place] [phone] PCP - General Family Medicine 07/14/23 documented as of this encounter
--- OUTSIDE RECORDS SUMMARY | 2025-04-19 10:04 | XMS_ITS | Encounter Summary ---
Author Organization [employer] Address [address] [facility] [address] [place] [address] Care Team Providers Care Employment Manager Name Role Phone Estelle Cain GINI Primary Care Provider [phone] Citlali Tee STRIKE PLATE ATTACHER Primary Care Provider Encounter Details Date Type Department Care Team (Late st Contact Info) Description 04/16/2023 Orders Only [facility] [address] [place] [address] Susan Pimentel LPN Social History Tobacco Use [...] FACTOR Routine 10/24/2023 11: 19 AM EDT [id number] ENZYME Routine 10/24/2023 11:19 AM EDT [...] IMMUNOGLOBULIN G 1340 600 - 1540 mg/dL [facility] IMMUNOGLOBULIN A 233 70 - 320 mg/dL [facility] Immunoglobulin M 84 50 - 300 mg/dL [facility] Comment:THIS TEST WAS PERFOR MED AT:[facility] [place] [phone] BLANCHARD MD Immunofixation Result SEE NOTE [facility] Comment:Normal pattern. No m onoclonal proteins detected. 10/24/2023 11:1 9 AM EDT 10/24/2023 11:19 AM EDT us Generic External Data Provider LAB BLOOD ORDERAB LES Final Result [facility] [address] [place] [phone] * (ABNORMAL) Angiotensin -1- Converting Enzyme (10/24/2023 11:19 AM EDT) Pathologist [facility] Angiotensin Converting Enzyme 70(A) 9 - 67 U/L [facility] Comment:THIS TEST WAS PERFOR MED AT:[employer] [place] [address]GKXMBFJTYLER DU MD,PHD 10/24/2023 11:1 9 AM EDT 10/24/2023 11:19 AM EDT us Generic External Data Provider LAB BLOOD ORDERAB LES Final Result [facility] [address] [place] [phone] * (ABNORMAL) Protein Electrophoresis and Oakley/Lambda Light Chains (10/24/2023 11:19 AM EDT) Pathologist [facility] Prot Elec - Total Protein 8.2(A) 6.1 - 8.1 g/dL [facility] Prot Elec - Albumin 4.7 3.8 - 4.8 g/dL [facility] Prot Elec - Alpha1 0.3 0.2 - 0.3 g/dL [facility] Prot Elec - Alpha2 0.8 0.5 - 0.9 g/dL [facility] Prot Elec - Beta 1 0.6 0.4 - 0.6 g/dL [facility] Prot Elec - Beta 2 0.3 0.2 - 0.5 g/dL [facility] Prot Elec - Gamma 1.5 0.8 - 1.7 g/dL [facility] PES - Abn Protein Band 1 [facility] PES-Abn Protein Band 2 [facility] PES-Abn Protein Band 3 [facility] Prot Elec - Interpretation SEE NOTE [facility] Comment:Normal Serum Protein Electrophoresis Pattern.No abnormal protein bands (M-protein) detected.THIS TEST WAS PERFORMED AT:[employer] [address] [phone] BLANCHARD MD 10/24/2023 11:1 9 AM EDT 10/24/2023 11:19 AM EDT us Generic External Data Provider LAB BLOOD ORDERAB LES Final Result [facility] [address] [place] [address] [phone] * SHERYL Screen,IFA, with Reflex to Titer and Pattern (10/24/2023 11:19 AM EDT) Anti Nuclear Antibody Screen NEGATIVE NEGATIVE [facility] Comment:SHERYL IFA is a first [...] clinicallysuspected inflammatory myopathies.AC-0: NegativeInternational Consensus on SHERYL Patterns(https://doi.org/10.1515/fcjb-2724-2689)For additional information, please refer tohttp://education.Oferton [employer]/faq/VMR784(This link is being provided for informational/educational purposes only.)THIS TEST WAS PERFORMED AT:[facility] [place] [phone] BLANCHARD MD SHERYL Titer TNP [facility] SHERYL Pattern TNP [facility] SHERYL Titer 2 TNP [facility] SHERYL Pattern 2 TNP [facility] SHERYL TITER 3 [facility] SHERYL PATTERN 3 [facility] 10/24/2023 11:1 9 AM EDT 10/24/2023 11:19 AM EDT us Generic External Data Provider LAB BLOOD ORDERAB LES Final Result Performing Organization Address [facility] Co de Phone Number [facility] [address] [place] [phone] * Cyclic Citrullinated Peptide (CCP) Antibody (IgG) (10/24/2023 11:19 AM EDT) Pathologist [facility] Cyclic Citrullinated Peptide <16 UNITS [facility] Comment:Reference RangeNegat travis: <20Weak Positive: 20-39Moderate Positive: 40-59Strong Positive: >59THIS TEST WAS PERFORMED AT:[facility] [place] [phone] BLANCHARD MD 10/24/2023 11:1 9 AM EDT 10/24/2023 11:19 AM EDT Generic External Data Provider LAB BLOOD ORDERAB LES Final Result Performing Organization Address [facility] Co de Phone Number [facility] [address] [place] [phone] * HIV-1/2 Antigen and Antibodies, Fourth Generation, with Reflexes (10/24/2023 11:19 AM EDT) [facility] HIV AB/AG Nonreactive Nonreactive [facility] Comment:HIV-1 p24 Ag and/or HIV-1/HIV-2 Ab not detected.A test result that is nonreactive does not exclude thepossibility of exposure to or infection with HIV-1 and/orHIV-2. Nonreactive results in this assay for individualswith prior exposure to HIV-1 and/or HIV-2 may be due toantigen and antibody levels that are below the limit ofdetection of this assay.The [employer] Safe Case HIV Ag/Ab Combo assay result andsupplemental assay results should be interpreted inconjunction with the patient's clinical presentation,history and other laboratory results. If the results areinconsistent with clinical evidence, additional testing issuggested to confirm the result. 10/24/2023 11:1 9 AM EDT 10/24/2023 11:19 AM EDT Generic External Data Provider LAB BLOOD ORDERAB LES Final Result Performing Organization Address [facility] Co de Phone Number [facility] [address] [place] [phone] * Hepatitis Panel, General (10/24/2023 11:19 AM EDT) Pathologist [facility] Hepatitis A IgM Nonreactive Nonreactive [facility] Comment:IgM antibodies to PITTS V not detected; does not exclude earlyacute or recovered HAV infection. ~Hepatitis B Surface Antibody REACTIVE Nonreactive [facility] Comment:REACTIVE: > 11.99 mI U/mL Hepatitis B Core Antibody Reactive Nonreactive [facility] Comment:Presumptive evidence of anti-HBc. Hepatitis C Antibody Nonreactive Nonreactive [facility] Comment:Antibodies to HCV no t detected; does not exclude early acuteHCV infection. Hepatitis B Surface Ag Negative Negative [facility] 10/24/2023 11:1 9 AM EDT 10/24/2023 11:19 AM EDT [employer] External Data Provider LAB BLOOD ORDERAB LES Final Result Performing Organization Address [facility] de Phone Number [facility] [address] [place] [phone] * T-SPOT??.TB (10/24/2023 11:19 AM EDT) Pathologist [facility] T Spot TB Negative Negative [facility] Comment:A negative test resu lt [...] as aquantitative test. TS PANEL A 0 [facility] TS PANEL B 0 [facility] Negative Control Passed [facility] Positive Control Passed [facility] Comment:For additional infor jewels, please refer tohttp://education.[employer]/faq/HZX805(This link is being provided for informational/educational purposes only.)THIS TEST WAS PERFORMED AT:[employer]/[id number] [place] [address]DRHUGUKTYLER DU MD,PHD 10/24/2023 11:1 9 AM EDT 10/24/2023 11:19 AM EDT us Generic External Data Provider LAB BLOOD ORDERAB LES Final Result Performing Organization Address City/[facility]/ZIP Co de Phone Number [facility] [address] [place] [phone] * Sed Rate by Modified Yasmeenren (10/24/2023 11:19 AM EDT) Erythrocyte Sedimentation Rate 7 0 - 15 MM/HR [facility] Comment:Patients with polycy themia and many hemoglobin abnormalitiesmay have depressed sed rates whereas patients with anemiamay have elevated sed rates. 10/24/2023 11:1 9 AM EDT 10/24/2023 11:19 AM EDT us Generic External Data Provider LAB BLOOD ORDERAB LES Final Result Performing Organization Address City/[facility]/ZIP Co de Phone Number [facility] [address] [place] [phone] * C-reactive Protein (10/24/2023 11:19 AM EDT) C Reactive Protein 0.16 < or = 0.50 mg/dL [facility] 10/24/2023 11:1 9 AM EDT 10/24/2023 11:19 AM EDT us Generic External Data Provider LAB BLOOD ORDERAB LES Final Result [facility] [address] [place] [phone] * (ABNORMAL) Comprehensive Metabolic Panel (10/24/2023 11:19 AM EDT) Pathologist [facility] Sodium 140 135 - 145 mmol/L [facility] Potassium 3.7 3.3 - 5.1 mmol/L [facility] Chloride 107 96 - 108 mmol/L [facility] Carbon Dioxide 28 22 - 29 mmol/L [facility] Anion Gap 9(L) 12 - 20 [facility] Urea Nitrogen (BUN) 18(H) 9 - 16 mg/dL [facility] Creatinine, Serum 0.99 0.5 - 1.4 mg/dL [facility] Estimated Glomerular Filt Rate >60 [facility] Comment:NOTE: For -Am erican individuals, multiply the result by 1.210.Chronic Kidney Disease: Estimated GFR < 60 mL/min/1.15h4Bcphxg Kidney Disease: Estimated GFR < 15 mL/min/1.73m2 Glucose 105 60 - 115 mg/dL [facility] Calcium 11.3(H) 8.4 - 10.2 mg/dL [facility] Bilirubin, Total 0.5 0.0 - 1.0 mg/dL [facility] Aspartate Amino Transferase 28 5 - 37 U/L [facility] Alanine Aminotransferase 22 0 - 40 U/L [facility] Total Protein 7.8 6.5 - 8.0 g/dL [facility] Albumin Level 4.5 3.5 - 5.0 g/dL [facility] Alkaline Phosphatase 74 39 - 117 U/L [facility] 10/24/2023 11:1 9 AM EDT 10/24/2023 11:19 AM EDT us Generic External Data Provider LAB BLOOD ORDERAB LES Final Result Performing Organization Address City/[facility] Co de Phone Number [facility] [address] [place] [phone] * Rheumatoid Factor (10/24/2023 11:19 AM EDT) Rheumatoid Factor <13.0 <15.0 IU/mL [facility] 10/24/2023 11:1 9 AM EDT 10/24/2023 11:19 AM EDT us Generic External Data Provider LAB BLOOD ORDERAB LES Final Result Performing Organization Address [facility] Co de Phone Number [facility] [address] [place] [phone] * Hemoglobin A1c (10/24/2023 11:19 AM EDT) Hemoglobin A1c 5.5 <6.0 % [facility] Comment:Hemoglobin A1C Refer ence Range Adults: 4.8 - 6.0 % Non diabetic: < 6.0 % Goal: < 7.0 %Additional Action Suggested: > 8.0 %Note: Hemoglobin A1c results are invalid for patients with abnormal amounts of HbF. Blood transfusions may impact the HbA1c concentration in the patient sample. Estimated Average Glucose 111 mg/dL [facility] Comment:eAG = Estimated ave rage glucose which is %A1C expressed asaverage glucose, using the formula of the R9W-KosckhxRjjlems Glucose study (ADAG), Diabetes Care, Vol.31,#8,Dec. 2007 10/24/2023 11:1 9 AM EDT 10/24/2023 11:19 AM EDT us Generic External Data Provider LAB BLOOD ORDERAB LES Final Result Performing Organization Address [facility] Co de Phone Number [facility] [address] [place] [phone] [phone] * (ABNORMAL) CBC auto differential (10/24/2023 11:19 AM EDT) White Blood Count 4.4(L) 4.8 - 10.8 X10*3/uL [facility] Red Blood Count 4.15(L) 4.60 - 5.80 X10*6/uL [facility] Hemoglobin 12.4(L) 14.0 - 18.0 g/dl [facility] Hematocrit 37.7(L) 42.0 - 52.0 % [facility] Mean Corpuscular Volume 90.8 80.0 - 98.0 fL [facility] Mean Corpuscular Hemoglobin 29.9 27.0 - 33.0 pg [facility] Mean Corpuscular HGB Conc 32.9 31.0 - 36.0 g/dl [facility] Red Cell Distribution Width 12.7 11.0 - 16.0 % [facility] Platelet Count 277 160 - 400 X10*3/uL [facility] Mean Platelet Volume 10.3 9.4 - 12.4 fL [facility] Neutrophils Percent Auto 50.4 45 - 73 % [facility] Imm Gran Pct Auto 0.5(H) 0.0 - 0.4 % [facility] Lymphocytes Percent Auto 33.9 20 - 40 % [facility] Monocytes Percent Auto 10.0 2 - 11 % [facility] Eosinophils Percent Auto 4.3(H) 0 - 4 % [facility] Basophils Percent Auto 0.9 0 - 2 % [facility] NRBC Pct Auto 0.0 0.0 - 0.2 /100WBC [facility] Neutrophils Absolute Auto 2.2 2.0 - 8.3 x10*3/uL [facility] Imm Gran Abs Auto 0.02 0.00 - 0.03 X10*3/uL [facility] Lymphocytes Absolute Auto 1.5 1.2 - 4.9 X10*3/uL [facility] Monocytes Absolute Auto 0.4 0.1 - 1.2 X10*3/uL [facility] Eosinophils Absolute Auto 0.2 0.0 - 0.4 X10*3/uL [facility] Basophils Absolute Auto 0.0 0.0 - 0.2 X10*3/uL [facility] NRBC Abs Auto 0.000 0.0 - 0.012 X10*3/uL [facility] 10/24/2023 11:1 9 AM EDT 10/24/2023 11:19 AM EDT us Generic External Data Provider LAB BLOOD ORDERAB LES Final Result Performing Organization Address City/State/[facility] Co de Phone Number [facility] [address] [place] [phone] documented in this encounter Visit Diagnoses Not on filedocumented in this encounter Care Teams Employment Manager Relationship Specialty Start Date End Date Estelle Cain ANP [address] [place] [address] PCP - General Family Medicine 12/26/21 07/13/23 Citlali Tee NP [address] [place] [address] PCP - General Family Medicine 07/14/23 documented as of this encounter
--- OUTSIDE RECORDS SUMMARY | 2025-04-19 10:04 | XMS_ITS | Encounter Summary ---
Author Organization [employer] Address [address] [facility] [address] [place] [address] Care Team Providers Care Utilities Service Investigator Name Role Phone Citlali Tee JANE Primary Care Provider [phone] Reason for Visit * Reason Comments Med Refill Encounter Details Date Type Department Care Team (Late st Contact Info) Description 08/08/2023 Refill [facility] [address] [place], [place] [phone] Estelle Cain ANP [address] [place], [place] [phone] Essential hypertension; Primary hypertension Social History Tobacco [...] documented as of this encounter Care Teams Utilities Service Investigator Relationship Specialty Start Date End Date Citlali Tee NP [address] [place] [address] PCP - General Family Medicine 07/14/23 documented as of this encounter
== END 2025-04-19 08:59 | disposition home or self-care (01) ==
LOC: HO.LAB 08:58
PROVIDERS: Nurse Practitioner Family; PCP Nurse Practitioner Family; Visit Provider Student in an Organized Health Care Education/Training Program
DX: Z12.5 Encounter for screening for malignant neoplasm of prostate (principal)
CPT/HCPCS: 36415; 84153

== ENCOUNTER 2025-05-03 10:07 | Outpatient (REF) | payer MEDICARE, MEDICAID, SELFPAY ==
--- NOTE | ~2025-05-03 | US_ITS ---
EXAMINATION: US KIDNEY BILATERAL HISTORY: N20.0 - Calculus of kidney TECHNIQUE: Real-time grayscale ultrasound imaging of the kidneys was performed and images were reviewed. COMPARISON: Comparison is made with the prior examination dated 07/19/2024. FINDINGS: Right kidney: The right kidney measures 10.1 x 6.2 x 6.3 cm. Renal parenchymal echotexture and thickness are normal. There are no masses. There is no hydronephrosis or renal calculi. Left Kidney: The left kidney measures 9.2 x 6.5 x 5.8 cm. Renal parenchymal echotexture and thickness are normal. Multiple cysts are again noted including a 2.7 x 3.2 x 2.5 cm septated upper pole cyst, a 1.3 x 1.2 x 1.3 cm upper pole cyst, and a 1.9 x 2.0 x 1.7 cm upper pole cyst. There is no hydronephrosis or renal calculi. US/US renal BI IMPRESSION: Left renal cysts as described. Otherwise unremarkable renal ultrasound. Electronically signed by: Adolph Harvey MD 05/03/2025 10:49 AM [facility]
--- OUTSIDE RECORDS SUMMARY | 2025-05-03 13:21 | XMS_ITS | Clinical Summary ---
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 ([facility]) 08/10/2024 Assessment & Plan (08/12/2024 6:47 [...] Encounters Date Type Department Care Team Description 04/19/2025 Orders Only GENERIC EXTERNAL DATA DEPARTMENT Provider, Generic External Data 03/02/2025 Refill [facility] MED [facility]EDS [address] [place] [address] Citlali Tee NP Other hyperlipidemia; Essential hypertension; Primary hypertension from Last 3 Months Immunizations Immunization Administration [...] Procedure Name Priority Date/Time Associated Diagnosis Comments US RENAL COMPLETE Routine 05/03/2025 10: 16 AM EST PSA, TOTAL Routine 04/19/2025 9:15 AM EST STRESS TEST WITH MYOCARDIAL PERFUSION Routine 02/24/2025 10:28 AM EDT HEPATITIS B, C PROFILE Routine 01/14/2025 12:20 PM EDT LIPID PANEL, STANDARD Routine 07/14/2023 10:50 AM EDT Essential hypertension Arthralgia of both hands Mixed hyperlipidemia Primary hypertension HM COLONOSCOPY Routine 05/02/2022 from Last 3 Months or Most Recently Relevant to Health Maintenance Results * US Renal Complete (05/03/2025 10:16 AM EST) Anatomical Region Laterality Modality Kidney Ultrasound 05/03/2025 10:1 6 AM EST Narrative 05/03/2025 10:51 AM EST [address] [address] Ultrasound Report Signed Patient: Ag Gill MR#: [id number] 185 : 1960 Acct:[id number] Age/Sex: 65 / M ADM Date: 05/03/25 Loc: HO.US Attending Dr: Azeb ANTONIO Ordering Physician: Azeb García Date of Service: 05/03/25 Procedure(s): US renal BI Accession Number(s): [id number] cc: Citlali Tee AXLE BEARING POLISHER; Azeb García Reason for Exam: N20.0 - Calculus of kidney EXAMINATION: US KIDNEY BILATERAL HISTORY: N20.0 - Calculus of kidney TECHNIQUE: Real-time grayscale ultrasound imaging of the kidneys was performed and images were reviewed. COMPARISON: Comparison is made with the prior examination dated 07/19/2024. FINDINGS: Right kidney: The right kidney measures 10.1 x 6.2 x 6.3 cm. Renal parenchymal echotexture and thickness are normal. There are no masses. There is no hydronephrosis or renal calculi. Left Kidney: The left kidney measures 9.2 x 6.5 x 5.8 cm. Renal parenchymal echotexture and thickness are normal. Multiple cysts are again noted including a 2.7 x 3.2 x 2.5 cm septated upper pole cyst, a 1.3 x 1.2 x 1.3 cm upper pole cyst, and a 1.9 x 2.0 x 1.7 cm upper pole cyst. There is no hydronephrosis or renal calculi. US/US renal BI IMPRESSION: Left renal cysts as described. Otherwise unremarkable renal ultrasound. Electronically signed by: Adolph Harvey MD 05/03/2025 10:49 AM EST Dictated By: Adolph Harvey MD Signed By: <Electronically signed by Adolph Harvey MD in OV> 05/03/25 1049 DD/ 1016 TD/TT: 05/03/25 1026 Refractory Specialist: Procedure Note Donotuseinterpreter, Image - 05/03/2025 [place] [address] Ultrasound Report Signed Patient: Ag Gill HMR#: [id number] 185 : 9Acct:[id number] Age/Sex: 65 / MADM Date: 05/03/25 Loc: HO.US Attending Dr: Azeb VICTORIA Ordering Physician: Azeb García Date of Service: 05/03/25 Procedure(s): US renal BI Accession Number(s): [id number] cc: Citlali Tee AXLE BEARING POLISHER; Azeb García Reason for Exam: N20.0 - Calculus of kidney EXAMINATION: US KIDNEY BILATERAL HISTORY: N20.0 - Calculus of kidney TECHNIQUE: Real-time grayscale ultrasound imaging of the kidneys was performed and images were reviewed. COMPARISON: Comparison is made with the prior examination dated 07/19/2024. FINDINGS: Right kidney: The right kidney measures 10.1 x 6.2 x 6.3 cm. Renal parenchymal echotexture and thickness are normal. There are no masses. There is no hydronephrosis or renal calculi. Left Kidney: The left kidney measures 9.2 x 6.5 x 5.8 cm. Renal parenchymal echotexture and thickness are normal. Multiple cysts are again noted including a 2.7 x 3.2 x 2.5 cm septated upper pole cyst, a 1.3 x 1.2 x 1.3 cm upper pole cyst, and a 1.9 x 2.0 x 1.7 cm upper pole cyst. There is no hydronephrosis or renal calculi. US/US renal BI IMPRESSION: Left renal cysts as described. Otherwise unremarkable renal ultrasound. Electronically signed by: Adolph Harvey MD 05/03/2025 10:49 AM EST Dictated By: Adolph Harvey MD Signed By: <Electronically signed by Adolph Harvey MD in OV> 05/03/25 1049 DD/ 1016 TD/TT: 05/03/25 1026 Refractory Specialist: us [facility] External Provider IMG US PROCEDURES Final Result * PSA,Total (04/19/2025 9:15 AM EST) Prostate Specific Antigen 3.55 <0.05 - 4.0 ng/mL [facility] Comment:PSA methodology: Abb d[place] Alivesta i ChemiluminescentMicroparticle Immunoassay (CMIA) 04/19/2025 9:15 AM EST 04/19/2025 9:17 AM EST Generic External Data Provider LAB BLOOD ORDERAB LES Final Result Performing Organization Address City/State/[facility] Co de Phone Number [facility] [address] [place] [address] [phone] * Stress test with myocardial perfusion (02/24/2025 10:28 AM EDT) 02/24/2025 10:2 8 AM EDT Narrative [facility] - 02/28/2025 4:03 PM EDT [place] [address] Nuclear Medicine Report Signed Patient: Ag Gill MR#: [id number] 185 : 1960 Acct:[id number] Age/Sex: 64 / M ADM Date: 02/24/25 Loc: HO.CARD Attending Dr: Zheng Pal MD Ordering Physician: Zheng Pal MD Date of Service: 02/24/25 Procedure(s): NM cardiolite stress test Accession Number(s): [id number] cc: Citlali Tee AXLE BEARING POLISHER; Zheng Pal MD Reason for Exam: R07.9 [...] mild reversible basal inferior defect, probably artifactual. FL/FL cardiolite stress test IMPRESSION: 1. Myocardial perfusion [...] 02/28/25 1600 DD/ 1028 TD/TT: 02/28/25 0820 Refractory Specialist: Procedure Note Donotuseinterpreter, Image - 02/28/[address] [address] Nuclear Medicine Report Signed Patient: Ag Gill HMR#: [id number] 185 : 9Acct:[id number] Age/Sex: 64 / MADM Date: 02/24/25 Loc: .CARD Attending Dr: Zheng Pal MD Ordering Physician: Zheng Pal MD Date of Service: 02/24/25 Procedure(s): FL cardiolite stress test Accession Number(s): [id number] cc: Citlali Tee AXLE BEARING POLISHER; Zheng Pal MD Reason for Exam: R07.9 [...] 02/28/25 1600 DD/ 1028 TD/TT: 02/28/25 0820 Refractory Specialist: [facility] External Provider CV STRE SS PROCEDURES Final Result [facility] [address] [place] [address] [place] [address] * Hepatitis B, C Profile (01/14/2025 12:20 PM EDT) ~Hepatitis B Surface Antibody REACTIVE Nonreactive [facility] [...] Final Result [facility] [address] [place] [phone] * Lipid Panel, Standard (07/14/2023 10:50 AM EDT) Triglycerides 100 <150 mg/dL [facility] Comment:Desirable Triglyceri de: less than [...] 190 mg/dL HDL Cholesterol 43 >40 mg/dL [facility] Comment:Desirable HDL: great er than 40 mg/dL Note: This HDL assay may give artificially low results in patients with liver disease. Blood Venous blood specimen / Unknown 07/14/2023 10:50 AM EDT 07/14/2023 1:02 PM EDT us Saba Hatfield MD LAB BLOOD ORDERABLES Final Result [facility] [address] [place] [address] [phone] * Hm Colonoscopy (05/02/2022) Colonoscopy Normal Normal us Shawanda Feldman NP HEALTH MAINTENANCE Edited Resul t - Final from Last 3 Months or Most Recently Relevant to Health Maintenance [place] [address] [address] [place] [address] , [address] [address] [facility] MEDICARE Care Teams Paper Reel Operator Relationship Specialty Start Date End Date Citlali Tee NP [address] [place] [phone] PCP - General Family Medicine 07/14/23
--- OUTSIDE RECORDS SUMMARY | 2025-05-03 13:21 | XMS_ITS | Encounter Summary ---
Author Organization [employer] Address [address] [facility] [address] [place] [address] Care Team Providers Care Make Up Operator Name Role Phone Citlali Tee JANE Primary Care Provider [phone] Reason for Visit * Reason Onset Date Comments Med Refill 09/06/2024 Encounter Details Date Type Department Care Team ([facility] st Contact Info) Description 09/06/2024 Refill [facility] [address] [place], [place] [phone] Name, MD Ayden [address] [place] [address] Other hyperlipidemia Social History Tobacco Use Types [...] documented as of this encounter Care Teams Make Up Operator Relationship Specialty Start Date End Date Citlali Tee NP [address] [place] [address] PCP - General Family Medicine 07/14/23 documented as of this encounter
--- OUTSIDE RECORDS SUMMARY | 2025-05-03 13:21 | XMS_ITS | Encounter Summary ---
Author Organization [employer] Address [address] [facility] 7t [place] [address] Care Team Providers Care Recruiting Internship Name Role Phone Citlali Tee NP Primary Care Provider [phone] Reason for Visit * Reason Onset Date Comments Med Refill 09/06/2024 Encounter Details Date Type Department Care Team (Late st Contact Info) Description 09/06/2024 Refill [facility] [address] [place], [place] [phone] Sarah Mukherjee NP [address] [place], [place] [phone] Arthralgia of both hands Social History Tobacco [...] documented as of this encounter Care Teams Recruiting Internship Relationship Specialty Start Date End Date Citlali Tee NP [address] [place] [phone] PCP - General Family Medicine 07/14/23 documented as of this encounter
--- OUTSIDE RECORDS SUMMARY | 2025-05-03 13:22 | XMS_ITS | Encounter Summary ---
Author Organization [employer] Address 75 [facility] 7t [place] [address] Care Team Providers Care Head Mechanic Name Role Phone Citlali Tee JANE Primary Care Provider [phone] Encounter Details Date Type Department Care Team (Late st Contact Info) Description 12/26/2023 Orders Only [facility] [address] [place] [address] Provider, MD Claude Social History Tobacco Use [...] documented as of this encounter Care Teams Head Mechanic Relationship Specialty Start Date End Date Citlali Tee NP [address] [place] [address] PCP - General Family Medicine 07/14/23 documented as of this encounter
--- OUTSIDE RECORDS SUMMARY | 2025-05-03 13:22 | XMS_ITS | Encounter Summary ---
Author Organization [employer] Address 75 [facility] 7t [place] [address] Care Team Providers Care Shield Installer Name Role Phone Citlali Tee JANE Primary Care Provider [phone] Reason for Visit * Reason Comments Med Refill Encounter Details Date Type Department Care Team (Late st Contact Info) Description 08/08/2023 Refill [facility] [address] [place], [place] [phone] Estelle Cain ANP [address] [place], [place] [phone] Essential hypertension; Primary hypertension Social History Tobacco [...] documented as of this encounter Care Teams Shield Installer Relationship Specialty Start Date End Date Citlali Tee NP [address] [place] [address] PCP - General Family Medicine 07/14/23 documented as of this encounter
--- OUTSIDE RECORDS SUMMARY | 2025-05-03 13:22 | XMS_ITS | Encounter Summary ---
Author Organization [email or web address] Address [address] [facility] 7t [place] [address] Care Team Providers Care Healthcare Or Medical Name Role Phone Estelle Cain GINI Primary Care Provider [phone] Citlali Tee DEBATE DIRECTOR Primary Care Provider Encounter Details Date Type Department Care Team (Late st Contact Info) Description 04/16/2023 Orders Only [facility] [address] [place] [address] Susan Pimentel LPN Social History Tobacco Use [...] FACTOR Routine 10/24/2023 11: 19 AM EDT [id number] ENZYME Routine 10/24/2023 11:19 AM EDT [...] IMMUNOGLOBULIN G 1340 600 - 1540 mg/dL [facility] IMMUNOGLOBULIN A 233 70 - 320 mg/dL [facility] Immunoglobulin M 84 50 - 300 mg/dL [facility] Comment:THIS TEST WAS PERFOR MED AT:[facility] [place] [id number] BLANCHARD MD Immunofixation Result SEE NOTE [facility] Comment:Normal pattern. No m onoclonal proteins detected. 10/24/2023 11:1 9 AM EDT 10/24/2023 11:19 AM EDT us Generic External Data Provider LAB BLOOD ORDERAB LES Final Result [facility] [address] [place] [phone] * (ABNORMAL) Angiotensin -1- Converting Enzyme (10/24/2023 11:19 AM EDT) Pathologist [facility] Angiotensin Converting Enzyme 70(A) 9 - 67 U/L [facility] Comment:THIS TEST WAS PERFOR MED AT:[facility] [place] [address]IEEOHEFTYLER DU MD,PHD 10/24/2023 11:1 9 AM EDT 10/24/2023 11:19 AM EDT us Generic External Data Provider LAB BLOOD ORDERAB LES Final Result [facility] [address] [place] [phone] * (ABNORMAL) Protein Electrophoresis and [place]/Lambda Light Chains (10/24/2023 11:19 AM EDT) Pathologist [facility] Prot Elec - Total Protein 8.2(A) 6.1 - 8.1 g/dL [facility] Prot Elec - Albumin 4.7 3.8 - 4.8 g/dL [facility] Prot Elec - Alpha1 0.3 0.2 - 0.3 g/dL [facility] Prot Elec - Alpha2 0.8 0.5 - 0.9 g/dL [facility] Prot Elec - Beta 1 0.6 0.4 - 0.6 g/dL [facility] Prot Elec - Beta 2 0.3 0.2 - 0.5 g/dL [facility] Prot Elec - Gamma 1.5 0.8 - 1.7 g/dL [facility] PES - Abn Protein Band 1 [facility] PES-Abn Protein Band 2 [facility] PES-Abn Protein Band 3 [facility] Prot Elec - Interpretation SEE NOTE [facility] Comment:Normal Serum Protein Electrophoresis Pattern.No abnormal protein bands (M-protein) detected.THIS TEST WAS PERFORMED AT:[facility] [id number] BLANCHARD MD 10/24/2023 11:1 9 AM EDT 10/24/2023 11:19 AM EDT us Generic External Data Provider LAB BLOOD ORDERAB LES Final Result [facility] [address] [place] [phone] * SHERYL Screen,IFA, with Reflex to Titer and Pattern (10/24/2023 11:19 AM EDT) Anti Nuclear Antibody Screen NEGATIVE NEGATIVE [facility] Comment:SHERYL IFA is a first [...] clinicallysuspected inflammatory myopathies.AC-0: NegativeInternational Consensus on SHERYL Patterns(https://doi.org/10.1515/fzln-7574-0761)For additional information, please refer tohttp://education.Vmedia Research/faq/OFE238(This link is being provided for informational/educational purposes only.)THIS TEST WAS PERFORMED AT:[facility] [place] [phone] BLANCHARD MD SHERYL Titer TNP [facility] SHERYL Pattern TNP [facility] SHERYL Titer 2 TNP [facility] SHERYL Pattern 2 TNP [facility] SHERYL TITER 3 [facility] SHERYL PATTERN 3 [facility] 10/24/2023 11:1 9 AM EDT 10/24/2023 11:19 AM EDT us Generic External Data Provider LAB BLOOD ORDERAB LES Final Result Performing Organization Address [facility] Co de Phone Number [facility] [address] [place] [phone] * Cyclic Citrullinated Peptide (CCP) Antibody (IgG) (10/24/2023 11:19 AM EDT) Pathologist [facility] Cyclic Citrullinated Peptide <16 UNITS [facility] Comment:Reference RangeNegat travis: <20Weak Positive: 20-39Moderate Positive: 40-59Strong Positive: >59THIS TEST WAS PERFORMED AT:[facility] [place] [phone] BLANCHARD MD 10/24/2023 11:1 9 AM EDT 10/24/2023 11:19 AM EDT Generic External Data Provider LAB BLOOD ORDERAB LES Final Result Performing Organization Address [facility] Co de Phone Number [facility] [address] [place] [phone] * HIV-1/2 Antigen and Antibodies, Fourth Generation, with Reflexes (10/24/2023 11:19 AM EDT) [facility] HIV AB/AG Nonreactive Nonreactive [facility] Comment:HIV-1 p24 Ag and/or HIV-1/HIV-2 Ab not detected.A test result that is nonreactive does not exclude thepossibility of exposure to or infection with HIV-1 and/orHIV-2. Nonreactive results in this assay for individualswith prior exposure to HIV-1 and/or HIV-2 may be due toantigen and antibody levels that are below the limit ofdetection of this assay.The [employer] HIV Ag/Ab Combo assay result andsupplemental assay results should be interpreted inconjunction with the patient's clinical presentation,history and other laboratory results. If the results areinconsistent with clinical evidence, additional testing issuggested to confirm the result. 10/24/2023 11:1 9 AM EDT 10/24/2023 11:19 AM EDT Generic External Data Provider LAB BLOOD ORDERAB LES Final Result Performing Organization Address [facility] Co de Phone Number [facility] [address] [place] [phone] * Hepatitis Panel, General (10/24/2023 11:19 AM EDT) Pathologist [facility] Hepatitis A IgM Nonreactive Nonreactive [facility] Comment:IgM antibodies to PITTS V not detected; does not exclude earlyacute or recovered HAV infection. ~Hepatitis B Surface Antibody REACTIVE Nonreactive [facility] Comment:REACTIVE: > 11.99 mI U/mL Hepatitis B Core Antibody Reactive Nonreactive [facility] Comment:Presumptive evidence of anti-HBc. Hepatitis C Antibody Nonreactive Nonreactive [facility] Comment:Antibodies to HCV no t detected; does not exclude early acuteHCV infection. Hepatitis B Surface Ag Negative Negative [facility] 10/24/2023 11:1 9 AM EDT 10/24/2023 11:19 AM EDT [employer] External Data Provider LAB BLOOD ORDERAB LES Final Result Performing Organization Address [facility] de Phone Number [facility] [address] [place] [phone] * T-SPOT??.TB (10/24/2023 11:19 AM EDT) Pathologist [facility] T Spot TB Negative Negative [facility] Comment:A negative test resu lt [...] as aquantitative test. TS PANEL A 0 [facility] TS PANEL B 0 [facility] Negative Control Passed [facility] Positive Control Passed [facility] Comment:For additional infor jewels, please refer tohttp://education.Dime/faq/ZOQ002(This link is being provided for informational/educational purposes only.)THIS TEST WAS PERFORMED AT:[email or web address] [address] [place] [address]PVIFMRWTYLER DU MD,PHD 10/24/2023 11:1 9 AM EDT 10/24/2023 11:19 AM EDT us Generic External Data Provider LAB BLOOD ORDERAB LES Final Result Performing Organization Address City/[facility]/ZIP Co de Phone Number [facility] [address] [place] [phone] * Sed Rate by Modified Yasmeenren (10/24/2023 11:19 AM EDT) Erythrocyte Sedimentation Rate 7 0 - 15 MM/HR [facility] Comment:Patients with polycy themia and many hemoglobin abnormalitiesmay have depressed sed rates whereas patients with anemiamay have elevated sed rates. 10/24/2023 11:1 9 AM EDT 10/24/2023 11:19 AM EDT us Generic External Data Provider LAB BLOOD ORDERAB LES Final Result Performing Organization Address City/[facility]/ZIP Co de Phone Number [facility] [address] [place] [phone] * C-reactive Protein (10/24/2023 11:19 AM EDT) C Reactive Protein 0.16 < or = 0.50 mg/dL [facility] 10/24/2023 11:1 9 AM EDT 10/24/2023 11:19 AM EDT us Generic External Data Provider LAB BLOOD ORDERAB LES Final Result [facility] [address] [place] [phone] * (ABNORMAL) Comprehensive Metabolic Panel (10/24/2023 11:19 AM EDT) Pathologist [facility] Sodium 140 135 - 145 mmol/L [facility] Potassium 3.7 3.3 - 5.1 mmol/L [facility] Chloride 107 96 - 108 mmol/L [facility] Carbon Dioxide 28 22 - 29 mmol/L [facility] Anion Gap 9(L) 12 - 20 [facility] Urea Nitrogen (BUN) 18(H) 9 - 16 mg/dL [facility] Creatinine, Serum 0.99 0.5 - 1.4 mg/dL [facility] Estimated Glomerular Filt Rate >60 [facility] Comment:NOTE: For -Am erican individuals, multiply the result by 1.210.Chronic Kidney Disease: Estimated GFR < 60 mL/min/1.88w2Tfdgwb Kidney Disease: Estimated GFR < 15 mL/min/1.73m2 Glucose 105 60 - 115 mg/dL [facility] Calcium 11.3(H) 8.4 - 10.2 mg/dL [facility] Bilirubin, Total 0.5 0.0 - 1.0 mg/dL [facility] Aspartate Amino Transferase 28 5 - 37 U/L [facility] Alanine Aminotransferase 22 0 - 40 U/L [facility] Total Protein 7.8 6.5 - 8.0 g/dL [facility] Albumin Level 4.5 3.5 - 5.0 g/dL [facility] Alkaline Phosphatase 74 39 - 117 U/L [facility] 10/24/2023 11:1 9 AM EDT 10/24/2023 11:19 AM EDT us Generic External Data Provider LAB BLOOD ORDERAB LES Final Result Performing Organization Address City/[facility] Co de Phone Number [facility] [address] [place] [phone] * Rheumatoid Factor (10/24/2023 11:19 AM EDT) Rheumatoid Factor <13.0 <15.0 IU/mL [facility] 10/24/2023 11:1 9 AM EDT 10/24/2023 11:19 AM EDT us Generic External Data Provider LAB BLOOD ORDERAB LES Final Result Performing Organization Address [facility] Co de Phone Number [facility] [address] [place] [phone] * Hemoglobin A1c (10/24/2023 11:19 AM EDT) Hemoglobin A1c 5.5 <6.0 % [facility] Comment:Hemoglobin A1C Refer ence Range Adults: 4.8 - 6.0 % Non diabetic: < 6.0 % Goal: < 7.0 %Additional Action Suggested: > 8.0 %Note: Hemoglobin A1c results are invalid for patients with abnormal amounts of HbF. Blood transfusions may impact the HbA1c concentration in the patient sample. Estimated Average Glucose 111 mg/dL [facility] Comment:eAG = Estimated ave rage glucose which is %A1C expressed asaverage glucose, using the formula of the O9K-RdbyvvbKlpuwec Glucose study (ADAG), Diabetes Care, Vol.31,#8,Dec. 2007 10/24/2023 11:1 9 AM EDT 10/24/2023 11:19 AM EDT us Generic External Data Provider LAB BLOOD ORDERAB LES Final Result Performing Organization Address [facility] Co de Phone Number [facility] [address] [place] [phone] * (ABNORMAL) CBC auto differential (10/24/2023 11:19 AM EDT) White Blood Count 4.4(L) 4.8 - 10.8 X10*3/uL [facility] Red Blood Count 4.15(L) 4.60 - 5.80 X10*6/uL [facility] Hemoglobin 12.4(L) 14.0 - 18.0 g/dl [facility] Hematocrit 37.7(L) 42.0 - 52.0 % [facility] Mean Corpuscular Volume 90.8 80.0 - 98.0 fL [facility] Mean Corpuscular Hemoglobin 29.9 27.0 - 33.0 pg [facility] Mean Corpuscular HGB Conc 32.9 31.0 - 36.0 g/dl [facility] Red Cell Distribution Width 12.7 11.0 - 16.0 % [facility] Platelet Count 277 160 - 400 X10*3/uL [facility] Mean Platelet Volume 10.3 9.4 - 12.4 fL [facility] Neutrophils Percent Auto 50.4 45 - 73 % [facility] Imm Gran Pct Auto 0.5(H) 0.0 - 0.4 % [facility] Lymphocytes Percent Auto 33.9 20 - 40 % [facility] Monocytes Percent Auto 10.0 2 - 11 % [facility] Eosinophils Percent Auto 4.3(H) 0 - 4 % [facility] Basophils Percent Auto 0.9 0 - 2 % [facility] NRBC Pct Auto 0.0 0.0 - 0.2 /100WBC [facility] Neutrophils Absolute Auto 2.2 2.0 - 8.3 x10*3/uL [facility] Imm Gran Abs Auto 0.02 0.00 - 0.03 X10*3/uL [facility] Lymphocytes Absolute Auto 1.5 1.2 - 4.9 X10*3/uL [facility] Monocytes Absolute Auto 0.4 0.1 - 1.2 X10*3/uL [facility] Eosinophils Absolute Auto 0.2 0.0 - 0.4 X10*3/uL [facility] Basophils Absolute Auto 0.0 0.0 - 0.2 X10*3/uL [facility] NRBC Abs Auto 0.000 0.0 - 0.012 X10*3/uL [facility] 10/24/2023 11:1 9 AM EDT 10/24/2023 11:19 AM EDT us Generic External Data Provider LAB BLOOD ORDERAB LES Final Result Performing Organization Address City/State/[facility] Co de Phone Number [facility] [address] [place] [phone] documented in this encounter Visit Diagnoses Not on filedocumented in this encounter Care Teams Healthcare Or Medical Relationship Specialty Start Date End Date Estelle Cain ANP [address] [place] [address] PCP - General Family Medicine 12/26/21 07/13/23 Citlali Tee NP [address] [place] [address] PCP - General Family Medicine 07/14/23 documented as of this encounter
--- OUTSIDE RECORDS SUMMARY | 2025-05-03 13:22 | XMS_ITS | Clinical Summary ---
Author Organization [facility] Address [address] [place] [address] Phone Care Team Providers Care Touch Up Edger Name Role Phone Physician, Pcp Unknown Primary [...] mmol/L LAB CHEMISTRY METHOD 09/21/2024 8:46 AM [facility] Potassium 3.9 3.5 - 5.5 mmol/L LAB CHEMISTRY METHOD 09/21/2024 8:46 AM [facility] Chloride 106 96 - 110 mmol/L LAB CHEMISTRY METHOD 09/21/2024 8:46 AM [facility] CO2 24 21 - 32 mmol/L LAB CHEMISTRY METHOD 09/21/2024 8:46 AM [facility] Anion Gap 6 3 - 11 LAB CHEMISTRY METHOD 09/21/2024 8:46 AM [facility] Glucose 118(H) 70 - 100 mg/dL LAB CHEMISTRY METHOD 09/21/2024 8:46 AM [facility] BUN 17 5 - 25 mg/dL LAB CHEMISTRY METHOD 09/21/2024 8:46 AM [facility] Creatinine 1.10 0.70 - 1.30 mg/dL LAB CHEMISTRY METHOD 09/21/2024 8:46 AM [facility] eGFR 74 >=60 mL/min/1. 73m2 LAB CHEMISTRY METHOD 09/21/2024 8:46 AM [facility] Comment:Calculation based on the Chronic Kidney Disease Epidemiology Collaboration (CKD-EPI) equation refit without adjustment for race. BUN/Creatinine Ratio 15.5 LAB CHEMISTRY METHOD 09/21/2024 8:46 AM [facility] Calcium 11.2(H) 8.5 - 10.5 mg/dL LAB CHEMISTRY METHOD 09/21/2024 8:46 AM [facility] AST (SGOT) 29 10 - 42 unit/L LAB CHEMISTRY METHOD 09/21/2024 8:46 AM [facility] ALT (SGPT) 31 10 - 60 unit/L LAB CHEMISTRY METHOD 09/21/2024 8:[address] [facility] Alkaline Phosphatase 107 42 - 121 unit/L LAB CHEMISTRY METHOD 09/21/2024 8:[address] [facility] Total Protein 8.3(H) 6.0 - 8.0 g/dL LAB CHEMISTRY METHOD 09/21/2024 8:[address] [facility] Albumin 4.6 3.2 - 5.0 g/dL LAB CHEMISTRY METHOD 09/21/2024 8:[address] [facility] Total Bilirubin 0.4 0.0 - 1.4 mg/dL LAB CHEMISTRY METHOD 09/21/2024 8:[address] [facility] Blood Venous blood specimen / Unknown Venipuncture / Unknown 09/21/2024 7:48 AM EDT 09/21/2024 8:14 AM EDT us Lei Mario MD LAB BLOOD ORDERABLES Final Result [facility] [address] [place] [address], from Last 3 Months or Most Recently Relevant to Health Maintenance Insurance MEDICARE MEDICAID - [place] Care Teams Touch Up Edger Relationship Specialty Start Date End Date Physician, Pcp Unknown PCP - General 09/21/24
--- OUTSIDE RECORDS SUMMARY | 2025-05-03 13:22 | XMS_ITS | Encounter Summary ---
Author Organization [employer] Address [address] [facility] 7t [place] [address] Care Team Providers Care Email Engineer Name Role Phone Citlali Tee NP Primary Care Provider [phone] Reason for Visit * Reason Comments Med Refill Encounter Details Date Type Department Care Team (Late st Contact Info) Description 05/23/2024 Refill [facility] [address] [place], [place] [phone] Citlali Tee NP [address] [place], [place] [phone] Essential hypertension; Primary hypertension; Other hyperlipidemia Social [...] documented as of this encounter Care Teams Email Engineer Relationship Specialty Start Date End Date Citlali Tee NP [address] [place] [phone] PCP - General Family Medicine 07/14/23 documented as of this encounter
== END 2025-05-03 10:08 ==
LOC: HO.US 10:07
PROVIDERS: PCP Nurse Practitioner Family; Visit Provider Nurse Practitioner Family
DX: N20.0 Calculus of kidney (principal); N28.1 Cyst of kidney, acquired
CPT/HCPCS: 76775

== ENCOUNTER → 2025-05-03 10:09 | Outpatient (BNV) | payer MEDICARE, MEDICAID, SELFPAY | PROVIDERS: PCP Nurse Practitioner Family; Visit Provider Radiology Diagnostic Radiology | DX: N28.1 Cyst of kidney, acquired (principal) | CPT/HCPCS: 76775 ==